=== PATIENT | male | born 1980 | race Two or more races ===

== ENCOUNTER 2022-08-09 19:28 | Inpatient (IN) | payer SELFPAY ==
--- NOTE | 2022-08-09 20:12 | ED Physician Documentation ---
History of Present Illness - Stated complaint Stated Complaint: OPEN WOUND - Chief complaint Chief Complaint: Wound - Additonal information Additional information: 41-year-old obese diabetic male presents to the emergency department for evalu ation of left foot ulceration and left leg swelling and redness. History is obtained with use of the motor vehicle parts interpreter. History is also obtained and ancillary history by his friend at the bedside who is also a nurse and speaks Welsh. Reportedly the patient developed an ulcer on lateral sole of his left foot more than 4 months ago. 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 However the patient subsequently Traveled to [place] and has remained there for the last 4 months. He returned From [place] 2 days ago. The patient reports that since returning from [place] he has had swelling and increased redness of the left lower And calf. He is also had subjective fevers. He denies chest pain or shortness of air. He typically takes a combination of both Humalog and regular insulin for the control of his diabetes as well as metformin 3 times a day. He does have a ulceration measuring about 2 cm in circumference on the lateral side of his left sole with exposed subcutaneous tissue but no obvious bony tissue is felt. Wound does not appear to tunnel PD PAST MEDICAL HISTORY - Present Medications Home Medications: Ambulatory Orders Medication Instructions Recorded Confirmed Insulin 70/30 Human [NovoLIN] 50 units SUBQ DAILY 08/09/22 08/09/22 Losartan [Cozaar] 50 mg PO BID 08/09/22 08/09/22 Omeprazole 40 mg PO DAILY 08/09/22 08/09/22 hydroCHLOROthiazide PO BID 08/09/22 [Hydrochlorothiazide] metFORMIN [Glucophage] 500 mg PO TID 08/09/22 08/09/22 - Allergies Allergies/Adverse Reactions: Allergies Allergy/AdvReac Type Severity Reaction Status Date / Time No Known Drug Allergies Allergy Verified 08/09/22 19:44 PD ED PE NORMAL - General General: Alert and oriented X 3, No acute distress, Well developed/nourished (Morbidly obese) - HEENT HEENT: Atraumatic, Moist mucous membranes - Cardiac Cardiac: RRR (Tachycardic regular rate 110) - Respiratory Respiratory: No respiratory distress, Clear bilaterally - Abdomen Abdomen: Normal bowel sounds, Soft - Extremities Extremities: Other (Chronic swelling of the bilateral lower extremities. Left lower extremity has erythema and mild induration extending up to the mid calf. No lymphangitis. 2 cm ulceration sole of the left foot with exposed subcutaneous fatty tissue. No tunneling. 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 Eye Opening: Spontaneous Motor: Obeys Commands Verbal: Oriented GCS Score: 15 Results - Vitals Vitals: Vital Signs - 24 hr 08/09/22 08/09/22 19:40 21:33 Temperature 36.5 C Heart Rate 115 H 118 H Respiratory 18 20 Rate Blood Pressure 145/89 H 159/76 H O2 Saturation 100 100 Oxygen O2 Source Room air - Labs Labs: Laboratory Tests 08/09/22 08/09/22 08/09/22 19:59 19:59 19:59 WBC 21.2 H RBC 4.82 Hgb 12.5 L Hct 39.4 L MCV 81.7 MCH 25.9 L MCHC 31.7 L RDW 13.3 Plt Count 384 MPV 9.9 Neut # (Auto) Not Reportable Lymph # (Auto) Not Reportable [place] # (Auto) Not Reportable Eos # (Auto) Not Reportable Baso # (Auto) Not Reportable Absolute Nucleated RBC Not Reportable Total Counted 100 Band Neuts % (Manual) 2 Abnorm Lymph % (Manual) 0 Nucleated RBC % Not Reportable Neutrophils # (Manual) 18.7 H Lymphocytes # (Manual) 1.3 L Monocytes # (Manual) 1.3 H Eosinophils # (Manual) 0.0 Basophils # (Manual) 0.0 Differential Comment MANUAL DIFFERENTIAL WBC Morphology 2+ TOXIC GRANULATION Platelet Estimate NORMAL (130-450,000) Platelet Morphology NORMAL APPEARANCE RBC Morph Micro Appear NORMAL APPEARANCE ESR 64 H Sodium 126 L Potassium 3.5 Chloride 91 L Carbon Dioxide 21 Anion Gap 14.0 H BUN 33 H Creatinine 1.2 Estimated GFR (MDRD) 67 L Glucose 378 H Calcium 8.9 Total Bilirubin 1.3 H AST 30 ALT 26 Alkaline Phosphatase 147 H C-Reactive Protein 38.9 H Total Protein 7.7 Albumin 3.4 Globulin 4.3 H Albumin/Globulin Ratio 0.8 L Lipase 23 Urine Color Urine Clarity Urine pH Ur Specific [place] Urine Protein Urine Glucose (UA) Urine Ketones Urine Occult Blood Urine Nitrite Urine Bilirubin Urine Urobilinogen Ur Leukocyte Esterase Ur Microscopic Review Urine Culture Comments 08/09/22 20:27 WBC RBC Hgb Hct MCV MCH MCHC RDW Plt Count MPV Neut # (Auto) Lymph # (Auto) [place] # (Auto) Eos # (Auto) Baso # (Auto) Absolute Nucleated RBC Total Counted Band Neuts % (Manual) Abnorm Lymph % (Manual) Nucleated RBC % Neutrophils # (Manual) Lymphocytes # (Manual) Monocytes # (Manual) Eosinophils # (Manual) Basophils # (Manual) Differential Comment WBC Morphology Platelet Estimate Platelet Morphology RBC Morph Micro Appear ESR Sodium Potassium Chloride Carbon Dioxide Anion Gap BUN Creatinine Estimated GFR (MDRD) Glucose Calcium Total Bilirubin AST ALT Alkaline Phosphatase C-Reactive Protein Total Protein Albumin Globulin Albumin/Globulin Ratio Lipase Urine Color DARK YELLOW Urine Clarity CLEAR Urine pH 5.5 Ur Specific [place] 1.015 Urine Protein NEGATIVE Urine Glucose (UA) >=1000 H Urine Ketones TRACE Urine Occult Blood TRACE-INTA Urine Nitrite NEGATIVE Urine Bilirubin SMALL H Urine Urobilinogen 2 H Ur Leukocyte Esterase NEGATIVE Ur Microscopic Review NOT INDICATED Urine Culture Comments NOT INDICATED - Rads (name of study) left foot Radiology: EMP read indepedently (No lesions to suggest acute osteomyelitis.) US DVT Radiology: Final report received (No deep vein thrombosis in the left leg. There are reactive lymph nodes in the groin) PD Medical Decision Making - ED course Complexity details: reviewed results, re-evaluated patient, considered differential, d/w patient ED course: This is a 41-year-old diabetic male who presents to the emergency department for evaluation of 2 days erythema and induration of the left foot and mid calf. He also has a chronic ulceration on the lateral side of his left foot that has been present for more than 4 months. In attendance with him is his friend who also speaks Welsh and is a nurse. The patient presents well-appearing. He is mildly tachycardic with a Heart rate of 110, but is afebrile. Clinically the exam of the left lower extremity is consistent with an acute cellulitis. A cbc completed today showed a marked leukocytosis. clinically pt presents as septic, though without shock. His electrolytes show a mild hyponatremia. This hyponatremia may be related to sepsis, long-term diuretic use i.e. hydrochlorothiazide or may be pseudohyponatremia in the setting of hyperglycemia. Patient's blood glucose is 378 We do note a markedly elevated ESR and sedimentation rate as well. Given the chronicity of the ulceration on the sole there is concerned that this could lead to the development of osteomyelitis. We have taken three-view x-rays of the left foot and per my interpretation there are no findings to suggest osteomyelitis or osseous lesions In order to manage the infection and sepsis I have empirically started the patient on vancomycin as well as ceftriaxone. UA and cxr are pending as other occult sources of infection. An ultrasound DVT was completed bedside with no findings of deep vein thrombosis. Moderate amount of reactive lymphadenopathy is seen within the groin consistent with the presentation of cellulitis. However given subjective fevers, tachycardia, marked leukocytosis as well as findings of infection in the lower leg at this time the patient does present as septic and will need to be admitted for further evaluation and management of this. Given the lack of hypotension patient did not receive 30 mils per kilo of fluid though he was administered a 1 L bolus of crystalloid. 2154: I have spoken with Dr. Cadena [facility] hospitalist who graciously agrees to bring the patient in for further evaluation and management of his sepsis, cellulitis and poorly controlled diabetes. Further care to be dictated by the inpatient hospitalist team Departure - Departure Disposition: [facility] DC/Xfer Clinical Impression: Cellulitis of left lower extremity, Poorly controlled diabetes mellitus Foot ulcer with fat layer exposed Qualifiers: Laterality: left Qualified Code(s): L97.522 - Non-pressure chronic ulcer of other part of left foot with fat layer exposed Sepsis Qualifiers: Sepsis type: sepsis due to unspecified organism Sepsis acute organ dysfunction status: without acute organ dysfunction Qualified Code(s): A41.9 - Sepsis, unspecified organism Condition: Serious
[2022-08-09 20:19] LABS: BASOPHILS % (AUTO) 0.2 %; EOSINOPHILS % (AUTO) 0.1 %; HCT - HEMATOCRIT 39.4 % (42.0-52.0); HGB - HEMOGLOBIN 12.5 g/dL (14.0-18.0); LYMPHOCYTES % (AUTO) 5.6 %; MEAN CORPUSCULAR HEMOGLOBIN 25.9 pg (27.0-31.0); MEAN CORPUSCULAR HGB CONC 31.7 g/dL (32.0-36.0); MEAN CORPUSCULAR VOLUME 81.7 fL (80.0-94.0); MEAN PLATELET VOLUME 9.9 fL (7.4-11.4); MONOCYTES % (AUTO) 7.6 %; NEUTROPHILS % (AUTO) 85.7 %; PLT - PLATELET COUNT 384 10^3/uL (130-450); RED BLOOD COUNT 4.82 10^6/uL (4.70-6.10); RED CELL DISTRIBUTION WIDTH 13.3 % (12.0-15.0); WHITE BLOOD COUNT 21.2 x10^3/uL (4.8-10.8)
[2022-08-09 20:22] LABS: ABNORMAL LYMPHS % (MANUAL) 0 %
--- NOTE | 2022-08-09 20:36 | XRAY Report ---
PROCEDURE: Foot 3 View LT INDICATIONS: Chronic ulcer TECHNIQUE: 3 views of the foot were acquired. COMPARISON: None. FINDINGS: Bones: No fractures or dislocations. No suspicious bony lesions. No evidence of osteomyelitis. Soft tissues: No tibiotalar joint effusion. Achilles tendon appears normal. There is soft tissue s welling over the forefoot. A deep ulceration is demarcated by gas margins lateral to the fifth metata rsal head. IMPRESSION: Deep soft tissue ulceration without osteomyelitis or foreign body seen. Reviewed by: Valentin Wallace MD on 08/09/2022 8:35 PM PST Approved by: Valentin Wallace MD on 08/09/2022 8:35 PM PST Station ID: [id number]
[2022-08-09 20:39] LABS: BAND NEUTROPHILS % (MANUAL) 2 %; LYMPHOCYTES # (MANUAL) 1.3 10^3/uL (1.5-3.5); LYMPHOCYTES % (MANUAL) 6 %; MONOCYTES # (MANUAL) 1.3 10^3/uL (0.0-1.0); NEUTROPHILS # (MANUAL) 18.7 10^3/uL (1.5-6.6); PLATELET ESTIMATE, MANUAL NORMAL (130-450,000) (NORMAL); PLATELET MORPHOLOGY NORMAL APPEARANCE (NORMAL); RBC MORPHOLOGY (MULTIPLE) NORMAL APPEARANCE (NORMAL); WBC MORPHOLOGY (MULTIPLE) 2+ TOXIC GRANULATION (NORMAL)
[2022-08-09 20:40] LABS: DIFFERENTIAL COMMENT MANUAL DIFFERENTIAL
[2022-08-09 20:51] LABS: ALBUMIN 3.4 g/dL (3.2-5.5); ALBUMIN/GLOBULIN RATIO 0.8 (1.0-2.2); BILIRUBIN,TOTAL 1.3 mg/dL (0.2-1.0); CALCIUM 8.9 mg/dL (8.5-10.3); CREATININE 1.2 mg/dL (0.6-1.2); CRP - C-REACTIVE PROTEIN 38.9 mg/dL (0-1.0); POTASSIUM 3.5 mmol/L (3.5-5.0); TOTAL PROTEIN 7.7 g/dL (6.7-8.2)
[2022-08-09] MEDS ORDERED: VANCOMYCIN INJ 1.5 GM in SODIUM CHLORIDE 0.9% 500 ML IV STA (20:59)
[2022-08-09] MEDS ORDERED: cefTRIAXone 1 GM in SODIUM CHLORIDE 0.9% MINIBAG 100 ML IV STA (21:00)
[2022-08-09] MEDS ORDERED: SODIUM CHLORIDE 0.9% 1,000 ML IV STA (21:00)
[2022-08-09] MEDS ORDERED: cefTRIAXone 1 GM VIAL ONE (21:09)
[2022-08-09] MEDS ORDERED: VANCOMYCIN 1 GM VIAL ONE (21:09)
[2022-08-09 21:39] LABS: GLUCOSE, URINE (UA) >=1000 mg/dL (NEGATIVE); KETONES,URINE (UA) TRACE mg/dL (NEGATIVE); LEUKOCYTE ESTERASE, URINE NEGATIVE (NEGATIVE); NITRITE,URINE NEGATIVE (NEGATIVE); OCCULT BLOOD,URINE TRACE-INTA (NEGATIVE); PH,URINE 5.5 PH (5.0-7.5); PROTEIN,URINE NEGATIVE (NEGATIVE); UROBILINOGEN,URINE 2 E.U./dL (NORMAL)
[2022-08-09 21:42] LABS: BILIRUBIN,URINE SMALL (NEGATIVE); CLARITY,URINE CLEAR (CLEAR); ICTOTEST,URINE POSITIVE
[2022-08-09] MEDS ORDERED: ONDANSETRON 4 MG/2 ML VIAL IVP PRN (21:56)
--- NOTE | 2022-08-09 21:56 | Ultrasound Report ---
PROCEDURE: Duplex Ext Veins Left INDICATIONS: swelling, erythema; rec[place] travelfrom [place]; ? dvt TECHNIQUE: Real-time imaging, as well as color and pulse Doppler interrogation, were performed of the lower extr emity deep veins from the inguinal ligament to the popliteal fossa. COMPARISON: None. FINDINGS: The deep veins are normally compressible, and free of intraluminal thrombus. Color and pu lse Doppler demonstrate normal phasic intraluminal flow. There is normal augmentation response to di stal compression maneuver. IMPRESSION: No DVT found left lower extremity. Somewhat limited quality of visualization due to larg e body habitus. Reviewed by: Valentin Wallace MD on 08/09/2022 9:54 PM PST Approved by: Valentin Wallace MD on 08/09/2022 9:54 PM PST Station ID: [id number]
--- NOTE | 2022-08-09 22:09 | HISTORY & PHYSICAL EXAMINATION ---
Chief Complaint - Chief Complaint Chief Complaint: Left foot pain and swelling History of Present Illness - Admitted From Admitted From:: Home - History Obtained From Records Reviewed: Yes History obtained from: Patient Exam Limitations: telemedicine - History of Present Illness HPI Comment/Other: 41-year-old obese diabetic male presents to the emergency department for evaluation of left foot ulceration and left leg swelling and redness. History is obtained with use of the science interpreter. History is also obtained and ancillary history by his friend at the bedside who is also a nurse and speaks Norwegian. Reportedly the patient developed an ulcer on lateral sole of his left foot more than 4 months ago. He had briefly been followed by a provider Dr. Brand here on [place] and had been referred to a cam specialist. However the patient subsequently Traveled to [place] and has remained there for the last 4 months. He returned From [place] 2 days ago. The patient reports that since returning from [place] he has had swelling and increased redness of the left lower And calf. He is also had subjective fevers. He denies chest pain or shortness of air. He typically takes a combination of both Humalog and regular insulin for the control of his diabetes as well as metformin 3 times a day. He does have a ulceration measuring about 2 cm in circumference on the lateral side of his left sole with exposed subcutaneous tissue but no obvious bony tissue is felt. Wound does not appear to tunnel, patient was discussed in detail with ER MD and felt patient wound was all cellulits with no other concerns. 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 History - Past Medical History Endocrine/Autoimmune: reports: Type 2 diabetes MRSA Hx?: No - POLST Patient has POLST: No Meds/Allgy - Home Medications Home Medications: Ambulatory Orders Medication Instructions Recorded Confirmed Insulin 70/30 Human [NovoLIN] 50 units SUBQ DAILY 08/09/22 08/09/22 Losartan [Cozaar] 50 mg PO BID 08/09/22 08/09/22 Omeprazole 40 mg PO DAILY 08/09/22 08/09/22 hydroCHLOROthiazide PO BID 08/09/22 [Hydrochlorothiazide] metFORMIN [Glucophage] 500 mg PO TID 08/09/22 08/09/22 - Allergies Allergies/Adverse Reactions: Allergies Allergy/AdvReac Type Severity Reaction Status Date / Time No Known Drug Allergies Allergy Verified 08/09/22 19:44 Review of Systems - Integumentary Integumentary: reports: Lesions, Other (Left leg ulcer x 8 mos) Prior Level of Functionality: Independent with AdL Exam - Vital Signs Reviewed Vital Signs: Yes Vital Signs: Vital Signs x48h Temp Pulse Resp BP Pulse Ox 08/09/22 21:33 118 H 20 159/76 H 100 08/09/22 19:40 36.5 C 115 H 18 145/89 H 100 - Physical Exam General Appearance: positive: No acute distress Eyes Bilateral: positive: Normal inspection, PERRL ENT: positive: Pharynx nml Neck: positive: Nml inspection Respiratory: positive: Chest non-tender Cardiovascular: positive: Regular rate & rhythm Abdomen: positive: Non-tender, No organomegaly (Left lower ext redness swelling and also an ulcer Other (Chronic swelling of the bilateral lower extremities. Left lower extremity has erythema and mild induration extending up to the mid calf. No lymphangitis. 2 cm ulceration sole of the left foot with exposed subcutaneous fatty tissue. No tunn) Sepsis Event Note (H) - Evaluation Current Stage of Sepsis: Ruled out Conclusion/Plan - Problem List (1) SIRS (systemic inflammatory response syndrome) Conclusion/Plan: IVF, IV abx (2) Foot ulcer with fat layer exposed Conclusion/Plan: Check arterial usg, iv abx, vancomycin and Zosyn, Follow ESR and CRP Qualifiers: Laterality: left Qualified Code(s): L97.522 - Non-pressure chronic ulcer of other part of left foot with fat layer exposed (3) Poorly controlled diabetes mellitus Conclusion/Plan: Check A1c, TSH, Lipid, continue home dose of insulin (4) Hyponatremia Conclusion/Plan: hypovolmeic and pseudohypoantremia from high gluocse continue to monitor for now - Lab Results Fish Bones: 08/09/22 19:59 08/09/22 19:59
[2022-08-09 22:27] LABS: CORONAVIRUS 229E-RESP PCR NOT DETECTED; CORONAVIRUS HKU1-RESP PCR NOT DETECTED; CORONAVIRUS NL63-RESP PCR NOT DETECTED; CORONAVIRUS OC43-RESP PCR NOT DETECTED; HUMAN METAPNEUMOVIRUS NOT DETECTED; INFLUENZA A- RESP PCR PANEL NOT DETECTED; INFLUENZA B - RESP PCR PANEL NOT DETECTED; PARAINFLUENZA VIRUS 1 NOT DETECTED; PARAINFLUENZA VIRUS 2 NOT DETECTED; PARAINFLUENZA VIRUS 3 NOT DETECTED; PARAINFLUENZA VIRUS 4 NOT DETECTED; RHINOVIRUS/ENTEROVIRUS NOT DETECTED; RSV- RESP PCR PANEL NOT DETECTED; SARS-CoV-2 -RESP PCR PANEL NOT DETECTED
[2022-08-09 22:28] LABS: B. PARAPERTUSSIS- RESP PCR PAN NOT DETECTED; B. PERTUSSIS- RESP PCR PANEL NOT DETECTED; C. PNEUMONIAE- RESP PCR PANEL NOT DETECTED; M. PNEUMONIAE- RESP PCR PANEL NOT DETECTED
--- NOTE | 2022-08-09 22:29 | XRAY Report ---
PROCEDURE: Chest 1 View X-Ray INDICATIONS: sepsis TECHNIQUE: One view of the chest was acquired. COMPARISON: None. FINDINGS: Surgical changes and devices: None. Lungs and pleura: No pleural effusions or pneumothorax. Lungs are difficult to accurately assess du e to large patient body habitus and relatively prominent reduced inspiratory volume.. Mediastinum: Mediastinal contours appear normal. Heart size is normal. Bones and chest wall: No suspicious bony lesions. Overlying soft tissues appear unremarkable. IMPRESSION: A definite pneumonia is not seen. Quality of visualization is significantly limited by large body hab itus and reduced inspiratory volume. Reviewed by: Valentin Wallace MD on 08/09/2022 10:28 PM PST Approved by: Valentin Wallace MD on 08/09/2022 10:28 PM PST Station ID: [id number]
[2022-08-09] MEDS ORDERED: VANCOMYCIN INJ 1.5 GM in SODIUM CHLORIDE 0.9% 500 ML IV SCH (23:00)
[2022-08-09] MEDS: SODIUM CHLORIDE 0.9% 1,000 ML IV SCH (23:18)
[2022-08-09] MEDS: PIPERACILLIN/TAZOBACTAM 3.375 GM in SODIUM CHLORIDE 0.9% MINIBAG 100 ML IV SCH (23:50)
[2022-08-09] MEDS: metFORMIN 500 MG TABLET PO SCH (23:50)
[2022-08-10] MEDS: ACETAMINOPHEN 325 MG TABLET PO PRN ×2 (00:45→09:02)
[2022-08-10] MEDS ORDERED: BENZOCAINE/MENTHOL LOZENGE MM PRN (01:01)
[2022-08-10 08:09] LABS: ALBUMIN 2.7 g/dL (3.2-5.5); ALBUMIN/GLOBULIN RATIO 0.7 (1.0-2.2); ALKALINE PHOSPHATASE 113 IU/L (42-121); ALT ALANINE AMINOTRANSFERASE 21 IU/L (10-60); AST ASPARTATE AMINOTRANSFERASE 22 IU/L (10-42); BILIRUBIN,TOTAL 1.4 mg/dL (0.2-1.0); BUN - BLOOD UREA NITROGEN 28 mg/dL (6-20); CALCIUM 8.3 mg/dL (8.5-10.3); CARBON DIOXIDE - CO2 22 mmol/L (21-32); CHLORIDE 101 mmol/L (101-111); CHOL/HDL RATIO 5.3 (<5.0); CHOLESTEROL 153 mg/dL; CREATININE 0.9 mg/dL (0.6-1.2); GFR - MDRD 94 (>89); GLUCOSE 93 mg/dL (70-100); HDL CHOLESTEROL 29 mg/dL; LDL CHOLESTEROL,CALCULATED 97 mg/dL; LDL/HDL RATIO 3.3 (<3.6); POTASSIUM 3.3 mmol/L (3.5-5.0); SODIUM 134 mmol/L (135-145); TOTAL PROTEIN 6.6 g/dL (6.7-8.2); TRIGLYCERIDES 136 mg/dL; VLDL CHOLESTEROL 27 mg/dL
[2022-08-10] MEDS ORDERED: VANCOMYCIN INJ 1 GM, VANCOMYCIN INJ 500 MG in SODIUM CHLORIDE 0.9% 500 ML IV SCH (09:00)
[2022-08-10] MEDS ORDERED: INSULIN 70/30 HUMAN 300 UNIT/3 ML VIAL SUBQ SCH (09:00)
[2022-08-10] MEDS: LOSARTAN 50 MG TABLET PO SCH ×2 (09:02→21:43)
[2022-08-10] MEDS: METOPROLOL TARTRATE 25 MG TABLET PO SCH ×2 (09:02→21:44)
[2022-08-10] MEDS: SODIUM CHLORIDE FLUSH 0.9% 10 ML SYRINGE IVP SCH ×3 (09:11→17:35)
[2022-08-10] MEDS: SODIUM CHLORIDE 0.9% 1,000 ML IV SCH (09:26)
[2022-08-10] MEDS ORDERED: INSULIN 70/30 HUMAN 300 UNIT/3 ML VIAL SUBQ ONE (09:30)
[2022-08-10] MEDS: INSULIN LISPRO 300 UNIT/3 ML PEN SUBQ SCH ×7 (10:30→21:54)
[2022-08-10] MEDS: metFORMIN 500 MG TABLET PO SCH (10:31)
[2022-08-10] MEDS: PIPERACILLIN/TAZOBACTAM 3.375 GM in SODIUM CHLORIDE 0.9% MINIBAG 100 ML IV SCH ×3 (10:51→21:47)
[2022-08-10] MEDS: PANTOPRAZOLE 40 MG TABLET PO SCH (10:52)
[2022-08-10 10:54] LABS: ESTIMATED AVERAGE GLUCOSE 298 mg/dL (70-100)
--- NOTE | 2022-08-10 11:04 | PHARMACY PROGRESS NOTE ---
- Best Possible Medication History Admit Date and Time: 08/09/22 1648 Processed by: Nursing Medication History completed: Yes As the person ultimately responsible for medication therapy, providers are able to order a medication from an existing home medication list in [facility] via the "Reconcile Routine" prior to Confirmation of that medication by student support services director. Such practice is discouraged except when the physician, in their clinical judgment, deems that a medical need exists for a medication without regard to previous use.
--- NOTE | 2022-08-10 16:19 | PROVIDER PROGRESS NOTE ---
Progress Note August 10, 2022 3:59 PM Patient has been diabetic for about 11 years. He uses hand to level it off and then dip it back and forth to say that his control has been off and on. Not really controlled. He walks in his own home. But he says he does not really exercise outside the house. He is kind of stuck in the house taking care of his elderly mom. She has heart problems. Sometimes he lives in [facility], sometimes lives in [place]. He has not worked in a while. He is morbidly obese. Says that it is really hard to say no to some food when some people are eating it in front of him. He has had an ulcer on his left foot for over 4 months. He saw primary care provider, Dr. Brand, who referred him to podiatry. But the patient went back to [place] and did not come back till 2 days ago. The ulcer on the left foot had almost completely healed. It was on the lateral aspect of the foot in the metatarsal region. But lately it softened up and it just peeled off. Fluid drains from the lateral aspect of the foot. Then the whole lower extremity started getting red, hot, and swollen. In addition to the lateral foot ulcer, leia sargent developed an ulcer on the plantar aspect of his foot in the metatarsal region that was new over the last few weeks.. He is only been back from [place] for 2 days. Foot x-ray in the ER had deep soft tissue ulceration without osteomyelitis or foreign body seen. Venous duplex was done to make sure he did not have a DVT and there is none present. And chest x-ray did not have pneumonia, pleural ef fusion, or pneumothorax. Active Medications Acetaminophen (Acetaminophen 325 Mg Tablet) 650 mg PO Q4HR PRN PRN Reason: Pain 1 to 4, or Fever Last Admin: 08/10/22 09:02 Dose: 650 mg Hydrocodone Bitart/Acetaminophen (Hydrocod/Acetam 10 Mg/325 Mg Tablet) 1 tab PO Q4HR PRN PRN Reason: Pain 8 to 10 Hydrocodone Bitart/Acetaminophen (Hydrocod/Acetam 5/325 Mg Tablet) 1 tab PO Q4HR PRN PRN Reason: Pain 5 to 7 Carboxymethylcellulose (Carboxymethylcellulose Ophth Drops) 1 drops EACHEYE PRN PRN PRN Reason: Dry Eye Sodium Chloride (Normal Saline 0.9%) 1,000 mls @ 100 mls/hr IV .Q10H [facility] Last Admin: 08/10/22 09:26 Dose: 100 mls/hr Piperacillin Sod/Tazobactam (Sod 3.375 gm/ Sodium Chloride) 100 mls @ 25 mls/hr IV Q8HR [facility] Last Admin: 08/10/22 13:49 Dose: 25 mls/hr Vancomycin HCl 1 gm/Vancomycin HCl 500 mg/ Sodium Chloride 500 mls @ 250 mls/hr IV Q8H [facility] Insulin Human Isoph/Insulin Regular (Insulin 70/30 Human 300 Unit/3 Ml Vial) 30 unit SUBQ DAILY [facility] Insulin Human Lispro (Insulin Lispro 300 Unit/3 Ml Pen) 5 unit SUBQ QDBREAKFAST [facility]; Protocol Last Admin: 08/10/22 10:30 Dose: Not Given Insulin Human Lispro (Insulin Lispro 300 Unit/3 Ml Pen) 5 unit SUBQ QDLUNCH [facility]; Protocol Last Admin: 08/10/22 12:08 Dose: 5 unit Insulin Human Lispro (Insulin Lispro 300 Unit/3 Ml Pen) 5 unit SUBQ QDDINNER [facility]; Protocol Insulin Human Lispro (Insulin Lispro 300 Unit/3 Ml Pen) 1 - 9 unit SUBQ 0800,1200,1700,2100 [facility]; Protocol Last Admin: 08/10/22 12:09 Dose: 3 unit Losartan Potassium (Losartan 50 Mg Tablet) 50 mg PO BID [facility] Last Admin: 08/10/22 09:02 Dose: 50 mg Metoprolol Tartrate (Metoprolol Tartrate 25 Mg Tablet) 25 mg PO BID [facility] Last Admin: 08/10/22 09:02 Dose: 25 mg Ondansetron HCl (Ondansetron 4 Mg/2 Ml Vial) 4 mg IVP Q6HR PRN PRN Reason: Nausea / Vomiting Pantoprazole Sodium (Pantoprazole 40 Mg Tablet) 40 mg PO QDAC [facility] Last Admin: 08/10/22 10:52 Dose: Not Given Sodium Chloride (Sodium Chloride Flush 0.9% 10 Ml Syringe) 10 ml IVP PRN PRN PRN Reason: NEEDED PER PROVIDER ORDERS Sodium Chloride (Sodium Chloride Flush 0.9% 10 Ml Syringe) 10 ml IVP 0100,0900,1700 [facility] Last Admin: 08/10/22 10:31 Dose: Not Given Throat Lozenges (Benzocaine/Menthol Lozenge) 1 lozenge MM Q2HR PRN PRN Reason: Throat pain Home Meds: Insulin 70/30 Human [NovoLIN] 50 units SUBQ DAILY 08/09/22 Losartan [Cozaar] 50 mg PO BID 08/09/22 Omeprazole 40 mg PO DAILY 08/09/22 hydroCHLOROthiazide [Hydrodiuril] 25 mg PO DAILY 08/10/22 metFORMIN [Glucophage] 850 mg PO TIDWM 08/10/22 Exam: Current temperature 36.8. This morning he was 38.6. Pulse has been slightly tachycardic at 104, 109, and 117 today. Blood pressure is 128/67, respirations 18, 99% on room air Super obese male who speaks broken [place], prefers to speak Turkish. I am bilingual and able to speak to him appropriately. He is alert, lucid, comfortable but worried about his foot 5 foot 8 inches tall, 154 kg Lungs have diminished breath sounds but they are clear without crackles, rhonchi, wheezing. No increased respiratory effort with speaking to me and he completes full sentences Distant cardiac tones of regular rate and rhythm that is slightly tachycardic Abdomen is super obese, soft, nontender, normal bowel sounds Both of his legs are quite large. Right leg has no ulcers, but does have trace edema around the ankle and foot. Left leg wyatt and calf is edematous, 2+. Skin is diffusely red, redness goes all the way down over the foot. He has 2 ulcers. 1 on the lateral aspect just underneath the fifth toe. Another 1 in the metatarsal region on the plantar aspect of the foot. The lateral ulcer is draining clear serous fluid. He is afraid this is pus. I said its not. While the skin is edematous, red and hot, there is no fluctuance. Lab: Sodium 134, potassium 3.3, BUN 28, creatinine 0.9, glucose 93 A1c 12%. Before lunch his glucose is 193 White cell count not ordered for today. Blood cultures drawn, received, and being processed Assessment/plan: 1. SIRS. SIRS with source of infection would be the sepsis from diabetic foot ulcer. But I do not think he meets all criteria for sepsis. 2. Diabetic foot ulcer with soft tissue infection. No bony infection suspected on plain film. Diabetic foot infection tends to be multi organism infection so I am not getting a superficial wound culture off of this. Literature does not support this. History and physical recommends vascular studies but none ordered. I will do that today. White cell count not ordered for today and I will order for tomorrow and subsequent days. I will also check C-reactive protein. At this time continue Zosyn and vancomycin. Day #2. Adjust antibiotics once blood cultures come back. I would recommend dropping vancomycin and continuing Zosyn 2. Type 2 diabetes mellitus, uncontrolled with hyperglycemia, with complication of diabetic foot infection, on long-term use of insulin. The patient describes being uncontrolled for most of his diabetic duration. He does not remember what an A1c is and does not remember if it is ever been below 7%. I explained to him at length that complications of uncontrolled diabetes start setting in around 15 years. May be even 10 years. He is at 13 years. He does not describe neuropathy, or nephropathy. He has never had a diabetic eye exam. I have also warned him about the risk of vascular disease. So someone with a foot infection would need an amputation if his vascular supply is not protected with controlled diabetes, RUT inhibitor, etc. He does not smoke. Plan: Strongly encouraged to limit diet caloric intake to 2000 dirk a day, and start walking (when his foot heals) to 30 minutes a day at least 5 days a week. Aim for an A1c of 7% With our diabetic diet, his sugar is low this morning. He is usually on 50 units of 70/30 at home. I will only give 15 units this morning. Tomorrow go to 30 units. Keep on going up if I need to to 50 units. However with our diabetic diet, we may find it easier to control his sugars in the hospital as opposed to what he does outside the hospital. Sliding scale insulin before meals. Fixed dosing of 5 units of lispro before each meal. 3. Pseudohyponatremia. Also with hypokalemia. The former has improved with IV fluids and control her sugar. We will supplement p.o. potassium.
[2022-08-10] MEDS: VANCOMYCIN INJ 1 GM, VANCOMYCIN INJ 500 MG in SODIUM CHLORIDE 0.9% 500 ML IV SCH (18:26)
[2022-08-10] MEDS: SENNA 8.6 MG TABLET PO SCH (21:43)
[2022-08-10] MEDS: guaiFENesin 600 MG TABLET PO SCH (21:44)
[2022-08-10] MEDS: DOCUSATE SODIUM 250 MG CAPSULE PO SCH (21:46)
[2022-08-11] MEDS: SODIUM CHLORIDE 0.9% 1,000 ML IV SCH ×3 (01:13→16:50)
[2022-08-11] MEDS: VANCOMYCIN INJ 1 GM, VANCOMYCIN INJ 500 MG in SODIUM CHLORIDE 0.9% 500 ML IV SCH ×3 (01:13→18:14)
[2022-08-11] MEDS: SODIUM CHLORIDE FLUSH 0.9% 10 ML SYRINGE IVP SCH ×3 (01:13→16:50)
[2022-08-11] MEDS: ACETAMINOPHEN 325 MG TABLET PO PRN ×2 (01:21→15:32)
[2022-08-11 05:53] LABS: BASOPHILS % (AUTO) 0.1 %; EOSINOPHILS # (AUTO) 0.2 10^3/uL (0.0-0.7); EOSINOPHILS % (AUTO) 1.2 %; HCT - HEMATOCRIT 31.2 % (42.0-52.0); HGB - HEMOGLOBIN 9.9 g/dL (14.0-18.0); LYMPHOCYTES # (AUTO) 1.6 10^3/uL (1.5-3.5); LYMPHOCYTES % (AUTO) 10.8 %; MEAN CORPUSCULAR HEMOGLOBIN 26.3 pg (27.0-31.0); MEAN CORPUSCULAR HGB CONC 31.7 g/dL (32.0-36.0); MEAN CORPUSCULAR VOLUME 82.8 fL (80.0-94.0); MEAN PLATELET VOLUME 10.1 fL (7.4-11.4); MONOCYTES # (AUTO) 1.2 10^3/uL (0.0-1.0); NEUTROPHILS # (AUTO) 11.7 10^3/uL (1.5-6.6); NEUTROPHILS % (AUTO) 79.4 %; PLT - PLATELET COUNT 320 10^3/uL (130-450); RED BLOOD COUNT 3.77 10^6/uL (4.70-6.10); RED CELL DISTRIBUTION WIDTH 13.9 % (12.0-15.0); WHITE BLOOD COUNT 14.7 x10^3/uL (4.8-10.8)
[2022-08-11] MEDS: PIPERACILLIN/TAZOBACTAM 3.375 GM in SODIUM CHLORIDE 0.9% MINIBAG 100 ML IV SCH ×3 (06:28→23:01)
[2022-08-11] MEDS: PANTOPRAZOLE 40 MG TABLET PO SCH (06:28)
[2022-08-11] MEDS: INSULIN LISPRO 300 UNIT/3 ML PEN SUBQ SCH ×7 (09:09→21:44)
[2022-08-11] MEDS: polyethylene glycoL 3350 17 GM PACKET PO SCH (09:11)
[2022-08-11] MEDS: INSULIN 70/30 HUMAN 300 UNIT/3 ML VIAL SUBQ SCH ×2 (09:11→23:13)
[2022-08-11] MEDS: LOSARTAN 50 MG TABLET PO SCH ×2 (09:12→23:05)
[2022-08-11] MEDS: DOCUSATE SODIUM 250 MG CAPSULE PO SCH (09:12)
[2022-08-11] MEDS: SENNA 8.6 MG TABLET PO SCH (09:13)
[2022-08-11] MEDS: METOPROLOL TARTRATE 25 MG TABLET PO SCH ×2 (09:13→23:01)
[2022-08-11] MEDS: guaiFENesin 600 MG TABLET PO SCH ×2 (09:13→23:01)
--- NOTE | 2022-08-11 11:07 | PHARMACY PROGRESS NOTE ---
- Therapy Status Vancomycin regimen day #: 3 Therapy status: Awaiting steady state Basis for treatment: Empirical Treatment indication: DIABETIC FOOT ULCER Trough goal: 10-15 Concurrent antibiotics: ZOSYN 3.375G Q8H - NIKO Risk Risk level for Acute Kidney Injury: High Acute Kidney Injury risk factors: Piperacillin/Tozobactam, Wt >100kg or BMI >40, Diabetes, Total daily Vancomycin >4 grams - Monitoring and Recommendation Clinical response to treatment: I&O Previous 24 hours 08/09/22 08/10/22 08/11/22 23:59 23:59 23:59 Intake Total 1600 4320 840 Output Total 300 Balance 1300 4320 840 Lab Results 08/10/22 08/09/22 08/09/22 06:26 19:59 19:59 ESR 64 H BUN 28 H 33 H Creatinine 0.9 1.2 Estimated GFR (MDRD) 94 67 L Cultures 08/09/22 19:59 Blood Blood Culture - Preliminary NO GROWTH AFTER 1 DAY 08/09/22 19:59 Blood Blood Culture - Preliminary NO GROWTH AFTER 1 DAY Monitoring plan: Daily serum creatinine (VANCO TROUGH ORDERED FOR 08/11/22 @1630. DOSES HAVE BEEN GIVEN EARLY BY ABOUT 45 MIN. CULTURES PENDING. TAILOR ABX WHEN APPROPRIATE.)
--- NOTE | 2022-08-11 14:58 | Ultrasound Report ---
PROCEDURE: Duplex Lwr Ext Arterial Bilat INDICATIONS: diabetic foot ulcer TECHNIQUE: Color and pulse Doppler interrogation was performed of both lower extremity arterial systems, with im age documentation. COMPARISON: None FINDINGS: Right lower extremity: Common femoral artery: 88 cm/sec, with triphasic flow. Deep femoral artery: 67 cm/sec, with triphasic flow. Proximal superficial femoral artery: 84 cm/sec, with triphasic flow. Mid superficial femoral artery: 91 cm/sec, with triphasic flow. Distal superficial femoral artery: 55 cm/sec, with triphasic flow. Popliteal artery: 58 cm/sec, with triphasic flow. Posterior tibial artery: 101 cm/sec, with triphasic flow. Anterior tibial artery/dorsalis pedis: 120/108 cm/sec, with triphasic flow. Stone-scale imaging description: Patent vessels. No stenosis identified. Left lower extremity: Common femoral artery: 119 cm/sec, with triphasic flow. Deep femoral artery: 81 cm/sec, with triphasic flow. Proximal superficial femoral artery: 134 cm/sec, with monophasic flow. Mid superficial femoral artery: 144 cm/sec, with monophasic flow. Distal superficial femoral artery: 93 cm/sec, with monophasic flow. Popliteal artery: 144 cm/sec, with monophasic flow. Posterior tibial artery: 57 cm/sec, with monophasic flow. Anterior tibial artery/dorsalis pedis: 119/126 cm/sec, with monophasic flow. Stone-scale imaging description: No stenoses identified from the common femoral through the popliteal . However, there is low resistance monophasic waveform that develops from the proximal SFA distally. IMPRESSION: 1. No evidence of inflow stenosis. 2. No significant findings on the right. 3. Although there is no hemodynamically significant stenosis identified on the left, from the common femoral through popliteal, the presence of monophasic waveforms from the proximal SFA distally sugges ts possible significant disease. Comment: Consider CTA or MRA of the aorta and runoff vessels. Reviewed by: Denzel John MD on 08/11/2022 2:57 PM PST Approved by: Denzel John MD on 08/11/2022 2:57 PM PST Station ID: [id number]
[2022-08-11 17:15] LABS: CALCIUM 8.1 mg/dL (8.5-10.3); CREATININE 0.9 mg/dL (0.6-1.2); POTASSIUM 3.3 mmol/L (3.5-5.0)
[2022-08-11] MEDS ORDERED: POTASSIUM CHLORIDE 20 MEQ TABLET PO ONE (17:31)
--- NOTE | 2022-08-11 17:33 | PROVIDER PROGRESS NOTE ---
Progress Note August 11, 2022 5:24 PM His mom and his cousin are in the room. They have lots of questions about how he is doing. He is worried because he continues to have drainage from the foot. It serous drainage. It comes out the hole on the lateral aspect of his foot. He wonders if Dr. Ceballos can do some incision and debridement when he goes to the office in followup. They wanted to know what his A1c was and it is 12%. So explained that he is not under control. He really needs to do a better job of exercise, diet, and insulin. He explains to me that he is actually taking 50 units of 70/30 twice a day. I thought he was just doing it once a day. He is shocked that we are not giving him that much insulin. And his sugars are better controlled here. I explained to him that he is our prisoner and that I am giving him a carb controlled diet. Other than burning in the foot, Edema of the foot, he does not have any new complaints. Denies cp, sob. Active Medications Acetaminophen (Acetaminophen 325 Mg Tablet) 650 mg PO Q4HR PRN PRN Reason: Pain 1 to 4, or Fever Last Admin: 08/11/22 15:32 Dose: 650 mg Hydrocodone Bitart/Acetaminophen (Hydrocod/Acetam 10 Mg/325 Mg Tablet) 1 tab PO Q4HR PRN PRN Reason: Pain 8 to 10 Hydrocodone Bitart/Acetaminophen (Hydrocod/Acetam 5/325 Mg Tablet) 1 tab PO Q4HR PRN PRN Reason: Pain 5 to 7 Carboxymethylcellulose (Carboxymethylcellulose Ophth Drops) 1 drops EACHEYE PRN PRN PRN Reason: Dry Eye Docusate Sodium (Docusate Sodium 250 Mg Capsule) 250 - 500 mg PO DAILY [facility] Last Admin: 08/11/22 09:12 Dose: 500 mg Guaifenesin (Guaifenesin 600 Mg Tablet) 600 mg PO BID [facility] Last Admin: 08/11/22 09:13 Dose: 600 mg Sodium Chloride (Normal Saline 0.9%) 1,000 mls @ 100 mls/hr IV .Q10H [facility] Last Admin: 08/11/22 16:50 Dose: 100 mls/hr Piperacillin Sod/Tazobactam (Sod 3.375 gm/ Sodium Chloride) 100 mls @ 25 mls/hr IV Q8HR [facility] Last Admin: 08/11/22 14:28 Dose: 25 mls/hr Vancomycin HCl 1 gm/Vancomycin HCl 500 mg/ Sodium Chloride 500 mls @ 250 mls/hr IV Q8H [facility] Last Infusion: 08/11/22 11:45 Dose: Infused Insulin Human Isoph/Insulin Regular (Insulin 70/30 Human 300 Unit/3 Ml Vial) 30 unit SUBQ DAILY [facility] Last Admin: 08/11/22 09:11 Dose: 30 unit Insulin Human Isoph/Insulin Regular (Insulin 70/30 Human 300 Unit/3 Ml Vial) 10 unit SUBQ QPM [facility] Insulin Human Lispro (Insulin Lispro 300 Unit/3 Ml Pen) 5 unit SUBQ QDBREAKFAST [facility]; Protocol Last Admin: 08/11/22 09:09 Dose: 5 unit Insulin Human Lispro (Insulin Lispro 300 Unit/3 Ml Pen) 5 unit SUBQ QDLUNCH [facility]; Protocol Last Admin: 08/11/22 12:01 Dose: 5 unit Insulin Human Lispro (Insulin Lispro 300 Unit/3 Ml Pen) 5 unit SUBQ QDDINNER [facility]; Protocol Last Admin: 08/10/22 17:34 Dose: 5 unit Insulin Human Lispro (Insulin Lispro 300 Unit/3 Ml Pen) 1 - 9 unit SUBQ 0800,1200,1700,2100 [facility]; Protocol Last Admin: 08/11/22 12:01 Dose: 3 unit Losartan Potassium (Losartan 50 Mg Tablet) 50 mg PO BID [facility] Last Admin: 08/11/22 09:12 Dose: 50 mg Metoprolol Tartrate (Metoprolol Tartrate 25 Mg Tablet) 25 mg PO BID [facility] Last Admin: 08/11/22 09:13 Dose: 25 mg Ondansetron HCl (Ondansetron 4 Mg/2 Ml Vial) 4 mg IVP Q6HR PRN PRN Reason: Nausea / Vomiting Pantoprazole Sodium (Pantoprazole 40 Mg Tablet) 40 mg PO QDAC [facility] Last Admin: 08/11/22 06:28 Dose: 40 mg Polyethylene Glycol (Polyethylene Glycol 3350 17 Gm Packet) 17 gm PO DAILY [facility] Last Admin: 08/11/22 09:11 Dose: 17 gm Senna (Senna 8.6 Mg Tablet) 8.6 - 17.2 mg PO DAILY [facility] Last Admin: 08/11/22 09:13 Dose: 17.2 mg Sodium Chloride (Sodium Chloride Flush 0.9% 10 Ml Syringe) 10 ml IVP PRN PRN PRN Reason: NEEDED PER PROVIDER ORDERS Sodium Chloride (Sodium Chloride Flush 0.9% 10 Ml Syringe) 10 ml IVP 0100,0900,1700 [facility] Last Admin: 08/11/22 16:50 Dose: Not Given Throat Lozenges (Benzocaine/Menthol Lozenge) 1 lozenge MM Q2HR PRN PRN Reason: Throat pain HOme Meds: Insulin 70/30 Human [NovoLIN] 50 units SUBQ DAILY 08/09/22 Losartan [Cozaar] 50 mg PO BID 08/09/22 Omeprazole 40 mg PO DAILY 08/09/22 hydroCHLOROthiazide [Hydrodiuril] 25 mg PO DAILY 08/10/22 metFORMIN [Glucophage] 850 mg PO TIDWM 08/10/22 Exam: Temperature 36.7. Heart rate 97. Blood pressure 129/62. Respiratory rate 24. 99% on room air. Pleasant, morbidly obese male Neck supple Lungs clear No respiratory distress RRR Abd obese, soft and had a BM today. Sitting up in bed, feet are down on the floor. He says that he really tries to keep his leg elevated. Right now is in an [place]ron wrap. You can still see the residual redness and edema that was present yesterday. The ulcers are covered. The bandages dry. Lab: Sodium 136, potassium 3.3, BUN 20, creatinine 0.9 Glucose today is 187, 210 and 157 White cell count was 21.2 on admission. 14.7 today. Hemoglobin was 12.5 in admission and is 9.9 today. Platelets are 320. Sed rate is 64 and C-reactive protein is 37.5. Blood cultures negative after 1 day Assessment/plan: 1. Diabetic foot infection. Soft tissue. No bony infection suspected on plain film. White cell count, C-reactive protein and sed rate indicate that he still has a ways to go. I have explained to him that he will be on antibiotics for a few days until his white cell count come down. And then he will be transitioned over to oral. At that point he can follow-up with his primary care provider and outpatient management with incision debridement of a diabetic foot. He may need to be referred to the wound clinic. Assessment/plan: Zosyn and vancomycin, day #3. Blood cultures are negative. As such no adjustment at this time. 2. Type 2 diabetes mellitus, uncontrolled, with hyperglycemia, with complications of diabetic foot infection, on long-term insulin I explained that I do not recommend giving 50 units twice a day. I will add 10 units at night. Continue 30 units in the morning. Continue to watch his sugar carefully. He is on 5 units of lispro with each meal. I will increase it to 20 units at night if his morning glucose remains elevated. Continue to encourage him to eat 2000 dirk a day. When his foot heals and he start walking every day. Aim for an A1c of less than 7%. 3. Pseudohyponatremia resolved. 4. Hypokalemia. Supplement with oral potassium and recheck tomorrow morning
[2022-08-11 22:19] LABS: VANCOMYCIN,TROUGH 24.7 ug/mL (10.0-20.0)
[2022-08-11] MEDS ORDERED: METOCLOPRAMIDE 10 MG/2 ML VIAL IVP PRN (22:37)
[2022-08-11] MEDS: HYDROcod/ACETAM 10 MG/325 MG TABLET PO PRN (23:12)
[2022-08-12] MEDS: SODIUM CHLORIDE FLUSH 0.9% 10 ML SYRINGE IVP SCH ×3 (02:33→17:36)
[2022-08-12] MEDS: VANCOMYCIN INJ 1 GM, VANCOMYCIN INJ 500 MG in SODIUM CHLORIDE 0.9% 500 ML IV SCH (02:41)
[2022-08-12 05:06] LABS: BASOPHILS % (AUTO) 0.1 %; EOSINOPHILS # (AUTO) 0.2 10^3/uL (0.0-0.7); EOSINOPHILS % (AUTO) 1.9 %; HCT - HEMATOCRIT 31.4 % (42.0-52.0); HGB - HEMOGLOBIN 9.8 g/dL (14.0-18.0); LYMPHOCYTES # (AUTO) 1.3 10^3/uL (1.5-3.5); LYMPHOCYTES % (AUTO) 12.1 %; MEAN CORPUSCULAR HEMOGLOBIN 25.8 pg (27.0-31.0); MEAN CORPUSCULAR HGB CONC 31.2 g/dL (32.0-36.0); MEAN CORPUSCULAR VOLUME 82.6 fL (80.0-94.0); MONOCYTES # (AUTO) 0.8 10^3/uL (0.0-1.0); MONOCYTES % (AUTO) 7.3 %; NEUTROPHILS # (AUTO) 8.6 10^3/uL (1.5-6.6); NEUTROPHILS % (AUTO) 78.1 %; PLT - PLATELET COUNT 360 10^3/uL (130-450); RED CELL DISTRIBUTION WIDTH 14.2 % (12.0-15.0)
[2022-08-12 05:52] LABS: CALCIUM 7.9 mg/dL (8.5-10.3); CREATININE 1.1 mg/dL (0.6-1.2); CRP - C-REACTIVE PROTEIN 29.1 mg/dL (0-1.0); POTASSIUM 3.6 mmol/L (3.5-5.0)
[2022-08-12] MEDS: SODIUM CHLORIDE 0.9% 1,000 ML IV SCH ×3 (06:55→19:07)
[2022-08-12] MEDS: PANTOPRAZOLE 40 MG TABLET PO SCH (06:55)
[2022-08-12] MEDS: PIPERACILLIN/TAZOBACTAM 3.375 GM in SODIUM CHLORIDE 0.9% MINIBAG 100 ML IV SCH ×3 (06:55→21:47)
[2022-08-12] MEDS ORDERED: MAGNESIUM HYDROXIDE 2,400 MG/30 ML UDC PO ONE (08:03)
[2022-08-12] MEDS: polyethylene glycoL 3350 17 GM PACKET PO SCH (08:31)
[2022-08-12] MEDS: INSULIN 70/30 HUMAN 300 UNIT/3 ML VIAL SUBQ SCH ×2 (08:32→21:48)
[2022-08-12] MEDS: INSULIN LISPRO 300 UNIT/3 ML PEN SUBQ SCH ×7 (08:33→21:47)
[2022-08-12] MEDS: POTASSIUM CHLORIDE 20 MEQ TABLET PO SCH (08:34)
[2022-08-12] MEDS: METOPROLOL TARTRATE 25 MG TABLET PO SCH ×2 (08:35→21:46)
[2022-08-12] MEDS: DOCUSATE SODIUM 250 MG CAPSULE PO SCH (08:35)
[2022-08-12] MEDS: SENNA 8.6 MG TABLET PO SCH (08:35)
[2022-08-12] MEDS: LOSARTAN 50 MG TABLET PO SCH ×2 (08:36→21:47)
[2022-08-12] MEDS: guaiFENesin 600 MG TABLET PO SCH ×2 (08:36→21:46)
[2022-08-12] MEDS ORDERED: VANCOMYCIN INJ 1 GM, VANCOMYCIN INJ 500 MG in SODIUM CHLORIDE 0.9% 500 ML IV SCH (09:04)
[2022-08-12] MEDS: CARBOXYMETHYLCELLULOSE OPHTH DROPS EACHEYE PRN (14:33)
[2022-08-12] MEDS: VANCOMYCIN INJ 1 GM, VANCOMYCIN INJ 250 MG in SODIUM CHLORIDE 0.9% 250 ML IV SCH (15:01)
[2022-08-12] MEDS: HYDROcod/ACETAM 5/325 MG TABLET PO PRN (18:00)
--- NOTE | 2022-08-12 18:07 | PROVIDER PROGRESS NOTE ---
Assessment/Plan - Problem List (1) Chronic diabetic ulcer of left foot determined by examination Assessment/Plan: No bony infection suspected on plain film. All labs were reviewed: White cell count, C-reactive protein and sed rate are still abnormal and indicate that he still has a way to go to improve. The last Hospitalist explained to him that he will be on antibiotics for a few days and then he will be transitioned over to oral antibiotics. I spoke to general surgeon Dr. Magdalena Marr who gave our team a curbside consult and said he does not need debridement currently, after she looked at his foot. She advised a turbogrip dressing, not a sock, however, to see if the bandage is soaked, then it needs redressing. Also, she advised that he will need to be [place] [facility] [place] Blood cultures are negative to date. No wound cultures were sent. Plan: Empiric Zosyn and vancomycin to continue. Will have PT see to recommend how to ambulate Will also ask for an Inpt consult from Wound Dr in [facility], Dr Wren. Follo CBC daily 2. Cellulitis of L foot As in #1 3. Type 2 diabetes mellitus, uncontrolled, with hyperglycemia, with complications of diabetic foot infection, on long-term insulin The last Hospitalist explained to him that we do not recommend giving 50 units twice a day. We have him on 10 units at night and 30 units in the morning. Plan: Continue Insulin treatment. Continue to watch his sugar carefully. Continue to encourage him to eat (a lower) 2000 dirk a day. When his foot eventually heals and he starts walking every day, aim for an A1c of less than 7%. 4. Cough Will obtain CXR>> this was read as having possibble interstial chganges vs underpenetrated due to his morbid obesity. 5. Morbid obesity BMI 50-59.9 As per Hx. This complicates his care. 6. Hypokalemia. Plan: Supplement with oral potassium and follow BMP 7. Pseudohyponatremia Resolved. - Current Meds Current Meds: Current Medications Generic Name Dose Route Start Last Admin Trade Name Freq PRN Reason Stop Dose Admin Acetaminophen 650 mg 08/09/22 21:56 08/11/22 15:32 Acetaminophen 325 Mg Tablet PO 650 mg Q4HR PRN Administration Pain 1 to 4, or Fever Hydrocodone Bitart/Acetaminophen 1 tab 08/09/22 21:56 08/11/22 23:12 Hydrocod/Acetam 10 Mg/325 Mg Tablet PO 1 tab Q4HR PRN Administration Pain 8 to 10 Carboxymethylcellulose 1 drops 08/10/22 01:01 08/12/22 14:33 Carboxymethylcellulose Ophth Drops EACHEYE 1 drops PRN PRN Administration Dry Eye Docusate Sodium 250 - 500 mg 08/10/22 21:00 08/12/22 08:35 Docusate Sodium 250 Mg Capsule PO 500 mg DAILY ADRI Administration Guaifenesin 600 mg 08/10/22 21:00 08/12/22 08:36 Guaifenesin 600 Mg Tablet PO 600 mg BID ADRI Administration Sodium Chloride 1,000 mls @ 100 mls/hr 08/09/22 22:00 08/12/22 15:01 Normal Saline 0.9% IV 100 mls/hr .Q10H ADRI Administration Piperacillin Sod/Tazobactam 100 mls @ 25 mls/hr 08/09/22 22:00 08/12/22 14:33 Sod 3.375 gm/ Sodium Chloride IV 25 mls/hr Q8HR ADRI Administration Vancomycin HCl 1 gm/ 265 mls @ 166.667 mls/hr 08/12/22 14:00 08/12/22 15:01 Vancomycin HCl 250 mg/ Sodium IV 166.667 mls/hr Chloride Q12H ADRI Administration Insulin Human Isoph/Insulin Regular 30 unit 08/11/22 09:00 08/12/22 08:32 Insulin 70/30 Human 300 Unit/3 Ml Vial SUBQ 30 unit DAILY ADRI Administration Insulin Human Isoph/Insulin Regular 10 unit 08/11/22 21:00 08/11/22 23:13 Insulin 70/30 Human 300 Unit/3 Ml Vial SUBQ 10 unit QPM ADRI Administration Insulin Human Lispro 5 unit 08/10/22 08:00 08/12/22 08:33 Insulin Lispro 300 Unit/3 Ml Pen SUBQ 5 unit [id number] ADRI Administration Protocol Insulin Human Lispro 5 unit 08/10/22 12:00 08/12/22 11:44 Insulin Lispro 300 Unit/3 Ml Pen SUBQ 5 unit QDLUNCH ADRI Administration Protocol Insulin Human Lispro 5 unit 08/10/22 17:00 08/12/22 17:36 Insulin Lispro 300 Unit/3 Ml Pen SUBQ 5 unit QDDINNER ADRI Administration Protocol Insulin Human Lispro 1 - 9 unit 08/10/22 08:00 08/12/22 17:36 Insulin Lispro 300 Unit/3 Ml Pen SUBQ 1 unit 0800,1200,1700,2100 [facility] Administration Protocol Losartan Potassium 50 mg 08/10/22 09:00 08/12/22 08:36 Losartan 50 Mg Tablet PO 50 mg BID ADRI Administration Metoclopramide HCl 5 mg 08/11/22 22:37 08/11/22 23:00 Metoclopramide 10 Mg/2 Ml Vial IVP 5 mg Q6HR PRN Administration NEEDED PER PROVIDER ORDERS Metoprolol Tartrate 25 mg 08/10/22 09:00 08/12/22 08:35 Metoprolol Tartrate 25 Mg Tablet PO 25 mg BID ADRI Administration Pantoprazole Sodium 40 mg 08/10/22 07:00 08/12/22 06:55 Pantoprazole 40 Mg Tablet PO 40 mg QDAC ADRI Administration Polyethylene Glycol 17 gm 08/11/22 09:00 08/12/22 08:31 Polyethylene Glycol 3350 17 Gm Packet PO 17 gm DAILY ADRI Administration Potassium Chloride 20 meq 08/12/22 08:00 08/12/22 08:34 Potassium Chloride 20 Meq Tablet PO 20 meq DAILYWM ADRI Administration Senna 8.6 - 17.2 mg 08/10/22 21:00 08/12/22 08:35 Senna 8.6 Mg Tablet PO 17.2 mg DAILY ADRI Administration Sodium Chloride 10 ml 08/10/22 01:00 08/12/22 17:36 Sodium Chloride Flush 0.9% 10 Ml Syringe IVP Not Given 0100,0900,1700 ADRI - Lab Result Fish Bone Diagrams: 08/13/22 07:33 08/13/22 07:33 - Additional Planning My Orders: My Active Orders 08/12/22 Evaluate and Treat PT [PT] Routine 08/12/22 11:35 Miscellaenous Nursing Order [RC] QSHIFT 08/12/22 14:00 Vancomycin Inj [Vancomycin] 1 gm Vancomycin Inj [Vancomycin Hcl] 250 mg Sodium Chloride 0.9% [Normal Saline 0.9%] 250 ml IV Q12H 08/12/22 17:58 Chest 1 View X-Ray [XR] Stat Subjective - Subjective Patient Reports: Feeling Better (No more fever. No significant pain in fact he has loss of sensation of the feet. Feels like he has a cough and a sore throat today.) Objective Vital Signs: Vital Signs - 24 hr 08/11/22 08/11/22 08/12/22 23:01 23:45 07:25 Temperature 37.1 C 36.7 C Heart Rate [ 101 H 88 Brachial] Respiratory 22 16 Rate Blood Pressure 138/62 H Blood Pressure 128/61 117/65 [Right Brachial artery] O2 Saturation 97 99 08/12/22 08/12/22 08:35 15:53 Temperature 37.1 C Heart Rate [ 88 Brachial] Respiratory 18 Rate Blood Pressure 117/65 Blood Pressure 113/68 [Right Brachial artery] O2 Saturation 96 Oxygen O2 Source Room air I&O (Last 24 Hrs): Intake and Output Totals x24h 08/10/22 08/11/22 08/12/22 23:59 23:59 23:59 Intake Total 4320 4060 3190 Balance 4320 4060 3190 General: Alert, Oriented x3, Other (Obese) HEENT: EOMI, Mucous membr. moist/pink Neck: Supple Neuro: Alert Cardiovascular: No murmurs (Distant heart sounds due to morbid obesity) Respiratory: No respiratory distress, Breath sounds nml Abdomen: Normal bowel sounds, Soft, Other (Obese with a pannus) Extremities: No clubbing, Other (Left midfoot and toes are bandaged and then a sock is on top of that.) - Results Results: Laboratory Results WBC 11.0 x10^3/uL (4.8-10.8) H 08/12/22 04:30 RBC 3.80 10^6/uL (4.70-6.10) L 08/12/22 04:30 Hgb 9.8 g/dL (14.0-18.0) L 08/12/22 04:30 Hct 31.4 % (42.0-52.0) L 08/12/22 04:30 MCV 82.6 fL (80.0-94.0) 08/12/22 04:30 MCH 25.8 pg (27.0-31.0) L 08/12/22 04:30 MCHC 31.2 g/dL (32.0-36.0) L 08/12/22 04:30 RDW 14.2 % (12.0-15.0) 08/12/22 04:30 Plt Count 360 10^3/uL (130-450) 08/12/22 04:30 MPV 10.0 fL (7.4-11.4) 08/12/22 04:30 Neut # (Auto) 8.6 10^3/uL (1.5-6.6) H 08/12/22 04:30 Lymph # (Auto) 1.3 10^3/uL (1.5-3.5) L 08/12/22 04:30 Mccreary # (Auto) 0.8 10^3/uL (0.0-1.0) 08/12/22 04:30 Eos # (Auto) 0.2 10^3/uL (0.0-0.7) 08/12/22 04:30 Baso # (Auto) 0.0 10^3/uL (0.0-0.1) 08/12/22 04:30 Absolute Nucleated RBC 0.00 x10^3/uL 08/12/22 04:30 Total Counted 100 08/09/22 19:59 Band Neuts % (Manual) 2 % (0-10) 08/09/22 19:59 Abnorm Lymph % (Manual) 0 % 08/09/22 19:59 Nucleated RBC % 0.0 /100WBC 08/12/22 04:30 Neutrophils # (Manual) 18.7 10^3/uL (1.5-6.6) H 08/09/22 19:59 Lymphocytes # (Manual) 1.3 10^3/uL (1.5-3.5) L 08/09/22 19:59 Monocytes # (Manual) 1.3 10^3/uL (0.0-1.0) H 08/09/22 19:59 Eosinophils # (Manual) 0.0 10^3/uL (0-0.7) 08/09/22 19:59 Basophils # (Manual) 0.0 10^3/uL (0-0.1) 08/09/22 19:59 Differential Comment MANUAL DIFFERENTIAL 08/09/22 19:59 WBC Morphology 2+ TOXIC GRANULATION (NORMAL) 08/09/22 19:59 Platelet Estimate NORMAL (130-450,000) (NORMAL) 08/09/22 19:59 Platelet Morphology NORMAL APPEARANCE (NORMAL) 08/09/22 19:59 RBC Morph Micro Appear NORMAL APPEARANCE (NORMAL) 08/09/22 19:59 ESR 64 mm/Hr (0-15) H 08/09/22 19:59 Sodium 139 mmol/L (135-145) 08/12/22 04:30 Potassium 3.6 mmol/L (3.5-5.0) 08/12/22 04:30 Chloride 104 mmol/L (101-111) 08/12/22 04:30 Carbon Dioxide 22 mmol/L (21-32) 08/12/22 04:30 Anion Gap 13.0 (6-13) 08/12/22 04:30 BUN 23 mg/dL (6-20) H 08/12/22 04:30 Creatinine 1.1 mg/dL (0.6-1.2) 08/12/22 04:30 Estimated GFR (MDRD) 75 (>89) L 08/12/22 04:30 Glucose 174 mg/dL (70-100) H 08/12/22 04:30 POC Whole Bld Glucose 141 mg/dL (70 - 100) H 08/12/22 16:28 Estimat Average Glucose 298 mg/dL (70-100) H 08/10/22 06:26 Hemoglobin A1c % 12.0 % (4.27-6.07) H 08/10/22 06:26 Lactic Acid 1.4 mmol/L (0.5-2.2) 08/09/22 21:46 Calcium 7.9 mg/dL (8.5-10.3) L 08/12/22 04:30 Total Bilirubin 1.4 mg/dL (0.2-1.0) H 08/10/22 06:26 AST 22 IU/L (10-42) 08/10/22 06:26 ALT 21 IU/L (10-60) 08/10/22 06:26 Alkaline Phosphatase 113 IU/L (42-121) 08/10/22 06:26 C-Reactive Protein 29.1 mg/dL (0-1.0) H 08/12/22 04:30 Total Protein 6.6 g/dL (6.7-8.2) L 08/10/22 06:26 Albumin 2.7 g/dL (3.2-5.5) L 08/10/22 06:26 Globulin 3.9 g/dL (2.1-4.2) 08/10/22 06:26 Albumin/Globulin Ratio 0.7 (1.0-2.2) L 08/10/22 06:26 Triglycerides 136 mg/dL (-149) 08/10/22 06:26 Cholesterol 153 mg/dL (-199) 08/10/22 06:26 LDL Cholesterol, Calc 97 mg/dL (-129) 08/10/22 06:26 VLDL Cholesterol 27 mg/dL 08/10/22 06:26 HDL Cholesterol 29 mg/dL (60-) L 08/10/22 06:26 LDL/HDL Ratio 3.3 (<3.6) 08/10/22 06:26 Cholesterol/HDL Ratio 5.3 (<5.0) 08/10/22 06:26 Lipase 23 U/L (22-51) 08/09/22 19:59 Procalcitonin 0.84 ng/mL (<0.5) H 08/09/22 21:46 TSH 0.84 uIU/mL (0.34-5.60) 08/10/22 06:26 Urine Color DARK YELLOW 08/09/22 20:27 Urine Clarity CLEAR (CLEAR) 08/09/22 20: Urine pH 5.5 PH (5.0-7.5) 08/09/22 20:27 Ur Specific [place] 1.015 (1.002-1.030) 08/09/22 20:27 Urine Protein NEGATIVE mg/dL (NEGATIVE) 08/09/22 20:27 Urine Glucose (UA) >=1000 mg/dL (NEGATIVE) H 08/09/22 20:27 Urine Ketones TRACE mg/dL (NEGATIVE) 08/09/22 20:27 Urine Occult Blood TRACE-INTA (NEGATIVE) 08/09/22 20:27 Urine Nitrite NEGATIVE (NEGATIVE) 08/09/22 20: Urine Bilirubin SMALL (NEGATIVE) H 08/09/22 20:27 Urine Urobilinogen 2 E.U./dL (NORMAL) H 08/09/22 20:27 Ur Leukocyte Esterase NEGATIVE (NEGATIVE) 08/09/22 20:27 Ur Microscopic Review NOT INDICATED 08/09/22 20:27 Urine Culture Comments NOT INDICATED 08/09/22 20:27 Nasal Adenovirus (PCR) NOT DETECTED 08/09/22 20:27 Nasal B. parapertussis DNA (PCR) NOT DETECTED 08/09/22 20:27 Nasal Coronavir 229E PCR NOT DETECTED 08/09/22 20:27 Nasal Coronavir HKU1 PCR NOT DETECTED 08/09/22 20:27 Nasal Coronavir NL63 PCR NOT DETECTED 08/09/22 20:27 Nasal Coronavir OC43 PCR NOT DETECTED 08/09/22 20:27 Nasal Enterovir/Rhinovir PCR NOT DETECTED 08/09/22 20:27 Nasal Influenza B PCR NOT DETECTED 08/09/22 20:27 Nasal Influenza A PCR NOT DETECTED 08/09/22 20:27 Nasal Parainfluen 1 PCR NOT DETECTED 08/09/22 20:27 Nasal Parainfluen 2 PCR NOT DETECTED 08/09/22 20:27 Nasal Parainfluen 3 PCR NOT DETECTED 08/09/22 20:27 Nasal Parainfluen 4 PCR NOT DETECTED 08/09/22 20:27 Nasal RSV (PCR) NOT DETECTED 08/09/22 20:27 Nasal B.pertussis DNA PCR NOT DETECTED 08/09/22 20:27 Nasal C.pneumoniae (PCR) NOT DETECTED 08/09/22 20:27 Yannick Human Metapneumo PCR NOT DETECTED 08/09/22 20:27 Nasal M.pneumoniae (PCR) NOT DETECTED 08/09/22 20:27 Nasal SARS-CoV-2 (PCR) NOT DETECTED 08/09/22 20:27 Last Dose Date 08/11/22 08/11/22 17:01 Last Dose Time 18108/11/22 17:01 Vancomycin Trough 24.7 ug/mL (10.0-20.0) H 08/11/22 17:01 Sepsis Event Note (H) - Evaluation Current Stage of Sepsis: Ruled out
--- NOTE | 2022-08-12 18:34 | XRAY Report ---
PROCEDURE: Chest 1 View X-Ray INDICATIONS: Cough, sputum TECHNIQUE: One view of the chest was acquired. COMPARISON: 08/09/2022 FINDINGS: Surgical changes and devices: None. Lungs and pleura: An incomplete inspiratory result is noted, with low lung volumes and crowding of t he vascular markings. No focal infiltrates are seen. No large pneumothorax or large pleural effusion can be seen. minimal interstitial prominence can be seen. Mediastinum: Mediastinal contours appear normal. Heart size is normal. Bones and chest wall: No suspicious bony lesions. Overlying soft tissues appear unremarkable. IMPRESSION: The lung volumes can be seen with minimal interstitial prominence. Please consider mild pulmonary pete ma versus atypical infiltrate. Differential diagnosis also includes artifact from the low lung volume s. No focal consolidated infiltrates can be seen. Please consider a short-term follow-up 2 view chest series (performed in deep inspiration) for furthe r evaluation. Reviewed by: Bravo Curtis MD on 08/12/2022 5:33 PM [facility] Approved by: Bravo Curtis MD on 08/12/2022 5:33 PM [facility] Station ID: [id number]
[2022-08-13] MEDS: SODIUM CHLORIDE FLUSH 0.9% 10 ML SYRINGE IVP SCH ×4 (00:48→22:20)
[2022-08-13] MEDS: VANCOMYCIN INJ 1 GM, VANCOMYCIN INJ 250 MG in SODIUM CHLORIDE 0.9% 250 ML IV SCH ×2 (02:42→14:03)
[2022-08-13] MEDS: PIPERACILLIN/TAZOBACTAM 3.375 GM in SODIUM CHLORIDE 0.9% MINIBAG 100 ML IV SCH ×3 (06:22→22:14)
[2022-08-13] MEDS: SODIUM CHLORIDE 0.9% 1,000 ML IV SCH ×3 (06:22→22:18)
[2022-08-13] MEDS: PANTOPRAZOLE 40 MG TABLET PO SCH (06:22)
--- NOTE | 2022-08-13 07:35 | PROVIDER PROGRESS NOTE ---
Assessment/Plan - Problem List (1) Diabetic foot infection Assessment/Plan: No bony infection was suspected on plain film. All labs were reviewed: White cell count, C-reactive protein and sed rate are still abnormal and indicate that he still has a way to go to improve. The last Hospitalist explained to him that he will be on antibiotics for a few days and then he will be transitioned over to oral antibiotics. He finally has not had a fever since 08/10 and WBC has improved since antibx were started Blood cultures are negative to date. No wound cultures were sent. PT evaluated him and advised him how to ambulate: using crutches and no-weight bearing was the advice. Today we got an Inpt consult from [place] [facility] [place] Wren. Dr. Wren came and spoke to me in person after he debrided the wound. Dr. Wren found a large area on the lateral foot containing an abscess and had purulent drainage which then extended to the second wound on the lower part of his foot. Dr. Wren sent off for aerobic and anaerobic cultures of this material. Plan: Empiric Zosyn and vancomycin to continue. Await wound cx results Dr Wren also advised that he have an MRI to look for other areas of abscess within the soft tissues. Recommendations are to change the dressing every 2 days Continue no weightbearing with the foot Follow CBC daily (2) Cellulitis of left foot Assessment/Plan: As in #1 (3) Difficulty swallowing solids Assessment/Plan: Pt is c/o swallowing food and feeling as if it's stuck in his esophagus. Pt apparently has this problem at home and takes Reglan for it. Pt specifically requested Reglan. Pt is not in any acute distress, other than feeling like the food is stuck. He is able to drink liquids, etc. The night RN requested an order for Reglan IV. The Telemedicine night doctor ordered Reglan prn. 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 Plan: Will continue the order for prn Reglan No indication for an EGD at this time and we have no flouro to do a swallowing study 4. Type 2 diabetes mellitus, uncontrolled, with hyperglycemia, with co mplications of diabetic foot infection, on long-term insulin The last Hospitalist explained to him that we do not recommend giving 50 units twice a day. We have him on 10 units at night and 30 units in the morning. We expect the glucoses to be poorly controlled while he has an active infection Plan: Continue Insulin treatment. Continue to watch his sugar carefully. Continue to encourage him to eat (a lower) 2000 dirk a day. When his foot eventually heals and he starts walking every day, aim for an A1c of less than 7%. 5. Morbid obesity BMI 50-59.9 As per Hx. This complicates his care. 6. Hypokalemia. Plan: Supplement with oral potassium and follow BMP daily 7. Pseudohyponatremia Resolved. - Current Meds Current Meds: Current Medications Generic Name Dose Route Start Last Admin Trade Name Freq PRN Reason Stop Dose Admin Acetaminophen 650 mg 08/09/22 21:56 08/11/22 15:32 Acetaminophen 325 Mg Tablet PO 650 mg Q4HR PRN Administration Pain 1 to 4, or Fever Hydrocodone Bitart/Acetaminophen 1 tab 08/09/22 21:56 08/11/22 23:12 Hydrocod/Acetam 10 Mg/325 Mg Tablet PO 1 tab Q4HR PRN Administration Pain 8 to 10 Hydrocodone Bitart/Acetaminophen 1 tab 08/09/22 21:56 08/12/22 18:00 Hydrocod/Acetam 5/325 Mg Tablet PO 1 tab Q4HR PRN Administration Pain 5 to 7 Carboxymethylcellulose 1 drops 08/10/22 01:01 08/12/22 14:33 Carboxymethylcellulose Ophth Drops EACHEYE 1 drops PRN PRN Administration Dry Eye Docusate Sodium 250 - 500 mg 08/10/22 21:00 08/12/22 08:35 Docusate Sodium 250 Mg Capsule PO 500 mg DAILY ADRI Administration Guaifenesin 600 mg 08/10/22 21:00 08/12/22 21:46 Guaifenesin 600 Mg Tablet PO 600 mg BID ADRI Administration Sodium Chloride 1,000 mls @ 100 mls/hr 08/09/22 22:00 08/13/22 06:22 Normal Saline 0.9% IV 100 mls/hr .Q10H ADRI Administration Piperacillin Sod/Tazobactam 100 mls @ 25 mls/hr 08/09/22 22:00 08/13/22 06:22 Sod 3.375 gm/ Sodium Chloride IV 25 mls/hr Q8HR ADRI Administration Vancomycin HCl 1 gm/ 265 mls @ 166.667 mls/hr 08/12/22 14:00 08/13/22 04:41 Vancomycin HCl 250 mg/ Sodium IV Infused Chloride Q12H ADRI Infusion Insulin Human Isoph/Insulin Regular 30 unit 08/11/22 09:00 08/12/22 08:32 Insulin 70/30 Human 300 Unit/3 Ml Vial SUBQ 30 unit DAILY ADRI Administration Insulin Human Isoph/Insulin Regular 10 unit 08/11/22 21:00 08/12/22 21:48 Insulin 70/30 Human 300 Unit/3 Ml Vial SUBQ 10 unit QPM ADRI Administration Insulin Human Lispro 5 unit 08/10/22 08:00 08/12/22 08:33 Insulin Lispro 300 Unit/3 Ml Pen SUBQ 5 unit QDBREAKFAST ADRI Administration Protocol Insulin Human Lispro 5 unit 08/10/22 12:00 08/12/22 11:44 Insulin Lispro 300 Unit/3 Ml Pen SUBQ 5 unit QDLUNCH ADRI Administration Protocol Insulin Human Lispro 5 unit 08/10/22 17:00 08/12/22 17:36 Insulin Lispro 300 Unit/3 Ml Pen SUBQ 5 unit QDDINNER ADRI Administration Protocol Insulin Human Lispro 1 - 9 unit 08/10/22 08:00 08/12/22 21:47 Insulin Lispro 300 Unit/3 Ml Pen SUBQ 3 unit 0800,1200,1700,2100 ADRI Administration Protocol Losartan Potassium 50 mg 08/10/22 09:00 08/12/22 21:47 Losartan 50 Mg Tablet PO 50 mg BID ADRI Administration Metoclopramide HCl 5 mg 08/11/22 22:37 08/11/22 23:00 Metoclopramide 10 Mg/2 Ml Vial IVP 5 mg Q6HR PRN Administration NEEDED PER PROVIDER ORDERS Metoprolol Tartrate 25 mg 08/10/22 09:00 08/12/22 21:46 Metoprolol Tartrate 25 Mg Tablet PO 25 mg BID ADRI Administration Pantoprazole Sodium 40 mg 08/10/22 07:00 08/13/22 06:22 Pantoprazole 40 Mg Tablet PO 40 mg QDAC ADRI Administration Polyethylene Glycol 17 gm 08/11/22 09:00 08/12/22 08:31 Polyethylene Glycol 3350 17 Gm Packet PO 17 gm DAILY ADRI Administration Potassium Chloride 20 meq 08/12/22 08:00 08/12/22 08:34 Potassium Chloride 20 Meq Tablet PO 20 meq DAILYWM ADRI Administration Senna 8.6 - 17.2 mg 08/10/22 21:00 08/12/22 08:35 Senna 8.6 Mg Tablet PO 17.2 mg DAILY ADRI Administration Sodium Chloride 10 ml 08/10/22 01:00 08/13/22 00:48 Sodium Chloride Flush 0.9% 10 Ml Syringe IVP Not Given 0100,0900,1700 ADRI - Lab Result Fish Bone Diagrams: 08/13/22 07:33 08/13/22 07:33 - Additional Planning My Orders: My Active Orders 08/12/22 11:35 Miscellaenous Nursing Order [RC] QSHIFT 08/12/22 14:00 Vancomycin Inj [Vancomycin] 1 gm Vancomycin Inj [Vancomycin Hcl] 250 mg Sodium Chloride 0.9% [Normal Saline 0.9%] 250 ml IV Q12H Subjective - Subjective Patient Reports: Resting Comfortably Objective Vital Signs: Vital Signs - 24 hr 08/12/22 08/12/22 08/12/22 08:35 15:53 21:46 Temperature 37.1 C Heart Rate [ 88 Brachial] Respiratory 18 Rate Blood Pressure 117/65 115/63 Blood Pressure 113/68 [Right Brachial artery] O2 Saturation 96 08/12/22 08/13/22 23:53 07:25 Temperature 36.9 C 37.9 C Heart Rate [ 89 94 Brachial] Respiratory 16 16 Rate Blood Pressure Blood Pressure 107/60 135/73 H [Right Brachial artery] O2 Saturation 98 99 Oxygen O2 Source Room air I&O (Last 24 Hrs): Intake and Output Totals x24h 08/11/22 08/12/22 08/13/22 23:59 23:59 23:59 Intake Total 4060 4585 1865 Balance 4060 4585 1865 General: Alert, Oriented x3 HEENT: Atraumatic, Mucous membr. moist/pink Neck: Supple Neuro: Alert Cardiovascular: No murmurs Respiratory: No respiratory distress Abdomen: Soft, Other (Obese) Extremities: Other (L foot bandaged) - Results Results: Laboratory Results WBC 11.0 x10^3/uL (4.8-10.8) H 08/12/22 04:30 RBC 3.80 10^6/uL (4.70-6.10) L 08/12/22 04:30 Hgb 9.8 g/dL (14.0-18.0) L 08/12/22 04:30 Hct 31.4 % (42.0-52.0) L 08/12/22 04:30 MCV 82.6 fL (80.0-94.0) 08/12/22 04:30 MCH 25.8 pg (27.0-31.0) L 08/12/22 04:30 MCHC 31.2 g/dL (32.0-36.0) L 08/12/22 04:30 RDW 14.2 % (12.0-15.0) 08/12/22 04:30 Plt Count 360 10^3/uL (130-450) 08/12/22 04:30 MPV 10.0 fL (7.4-11.4) 08/12/22 04:30 Neut # (Auto) 8.6 10^3/uL (1.5-6.6) H 08/12/22 04:30 Lymph # (Auto) 1.3 10^3/uL (1.5-3.5) L 08/12/22 04:30 [place] # (Auto) 0.8 10^3/uL (0.0-1.0) 08/12/22 04:30 Eos # (Auto) 0.2 10^3/uL (0.0-0.7) 08/12/22 04:30 Baso # (Auto) 0.0 10^3/uL (0.0-0.1) 08/12/22 04:30 Absolute Nucleated RBC 0.00 x10^3/uL 08/12/22 04:30 Total Counted 100 08/09/22 19:59 Band Neuts % (Manual) 2 % (0-10) 08/09/22 19:59 Abnorm Lymph % (Manual) 0 % 08/09/22 19:59 Nucleated RBC % 0.0 /100WBC 08/12/22 04:30 Neutrophils # (Manual) 18.7 10^3/uL (1.5-6.6) H 08/09/22 19:59 Lymphocytes # (Manual) 1.3 10^3/uL (1.5-3.5) L 08/09/22 19:59 Monocytes # (Manual) 1.3 10^3/uL (0.0-1.0) H 08/09/22 19:59 Eosinophils # (Manual) 0.0 10^3/uL (0-0.7) 08/09/22 19:59 Basophils # (Manual) 0.0 10^3/uL (0-0.1) 08/09/22 19:59 Differential Comment MANUAL DIFFERENTIAL 08/09/22 19:59 WBC Morphology 2+ TOXIC GRANULATION (NORMAL) 08/09/22 19:59 Platelet Estimate NORMAL (130-450,000) (NORMAL) 08/09/22 19:59 Platelet Morphology NORMAL APPEARANCE (NORMAL) 08/09/22 19:59 RBC Morph Micro Appear NORMAL APPEARANCE (NORMAL) 08/09/22 19:59 ESR 64 mm/Hr (0-15) H 08/09/22 19:59 Sodium 139 mmol/L (135-145) 08/12/22 04:30 Potassium 3.6 mmol/L (3.5-5.0) 08/12/22 04:30 Chloride 104 mmol/L (101-111) 08/12/22 04:30 Carbon Dioxide 22 mmol/L (21-32) 08/12/22 04:30 Anion Gap 13.0 (6-13) 08/12/22 04:30 BUN 23 mg/dL (6-20) H 08/12/22 04:30 Creatinine 1.1 mg/dL (0.6-1.2) 08/12/22 04:30 Estimated GFR (MDRD) 75 (>89) L 08/12/22 04:30 Glucose 174 mg/dL (70-100) H 08/12/22 04:30 POC Whole Bld Glucose 153 mg/dL (70 - 100) H 08/13/22 07:15 Estimat Average Glucose 298 mg/dL (70-100) H 08/10/22 06:26 Hemoglobin A1c % 12.0 % (4.27-6.07) H 08/10/22 06:26 Lactic Acid 1.4 mmol/L (0.5-2.2) 08/09/22 21:46 Calcium 7.9 mg/dL (8.5-10.3) L 08/12/22 04:30 Total Bilirubin 1.4 mg/dL (0.2-1.0) H 08/10/22 06:26 AST 22 IU/L (10-42) 08/10/22 06:26 ALT 21 IU/L (10-60) 08/10/22 06:26 Alkaline Phosphatase 113 IU/L (42-121) 08/10/22 06:26 C-Reactive Protein 29.1 mg/dL (0-1.0) H 08/12/22 04:30 Total Protein 6.6 g/dL (6.7-8.2) L 08/10/22 06:26 Albumin 2.7 g/dL (3.2-5.5) L 08/10/22 06:26 Globulin 3.9 g/dL (2.1-4.2) 08/10/22 06:26 Albumin/Globulin Ratio 0.7 (1.0-2.2) L 08/10/22 06:26 Triglycerides 136 mg/dL (-149) 08/10/22 06:26 Cholesterol 153 mg/dL (-199) 08/10/22 06:26 LDL Cholesterol, Calc 97 mg/dL (-129) 08/10/22 06:26 VLDL Cholesterol 27 mg/dL 08/10/22 06:26 HDL Cholesterol 29 mg/dL (60-) L 08/10/22 06:26 LDL/HDL Ratio 3.3 (<3.6) 08/10/22 06:26 Cholesterol/HDL Ratio 5.3 (<5.0) 08/10/22 06:26 Lipase 23 U/L (22-51) 08/09/22 19:59 Procalcitonin 0.84 ng/mL (<0.5) H 08/09/22 21:46 TSH 0.84 uIU/mL (0.34-5.60) 08/10/22 06:26 Urine Color DARK YELLOW 08/09/22 20:27 Urine Clarity CLEAR (CLEAR) 08/09/22 20:27 Urine pH 5.5 PH (5.0-7.5) 08/09/22 20: Ur Specific [place] 1.015 (1.002-1.030) 08/09/22 20:27 Urine Protein NEGATIVE mg/dL (NEGATIVE) 08/09/22 20:27 Urine Glucose (UA) >=1000 mg/dL (NEGATIVE) H 08/09/22 20:27 Urine Ketones TRACE mg/dL (NEGATIVE) 08/09/22 20:27 Urine Occult Blood TRACE-INTA (NEGATIVE) 08/09/22 20:27 Urine Nitrite NEGATIVE (NEGATIVE) 08/09/22 20:27 Urine Bilirubin SMALL (NEGATIVE) H 08/09/22 20:27 Urine Urobilinogen 2 E.U./dL (NORMAL) H 08/09/22 20:27 Ur Leukocyte Esterase NEGATIVE (NEGATIVE) 08/09/22 20:27 Ur Microscopic Review NOT INDICATED 08/09/22 20:27 Urine Culture Comments NOT INDICATED 08/09/22 20:27 Nasal Adenovirus (PCR) NOT DETECTED 08/09/22 20:27 Nasal B. parapertussis DNA (PCR) NOT DETECTED 08/09/22 20:27 Nasal Coronavir 229E PCR NOT DETECTED 08/09/22 20:27 Nasal Coronavir HKU1 PCR NOT DETECTED 08/09/22 20:27 Nasal Coronavir NL63 PCR NOT DETECTED 08/09/22 20:27 Nasal Coronavir OC43 PCR NOT DETECTED 08/09/22 20:27 Nasal Enterovir/Rhinovir PCR NOT DETECTED 08/09/22 20:27 Nasal Influenza B PCR NOT DETECTED 08/09/22 20:27 Nasal Influenza A PCR NOT DETECTED 08/09/22 20:27 Nasal Parainfluen 1 PCR NOT DETECTED 08/09/22 20:27 Nasal Parainfluen 2 PCR NOT DETECTED 08/09/22 20:27 Nasal Parainfluen 3 PCR NOT DETECTED 08/09/22 20:27 Nasal Parainfluen 4 PCR NOT DETECTED 08/09/22 20:27 Nasal RSV (PCR) NOT DETECTED 08/09/22 20:27 Nasal B.pertussis DNA PCR NOT DETECTED 08/09/22 20:27 Nasal C.pneumoniae (PCR) NOT DETECTED 08/09/22 20:27 Yannick Human Metapneumo PCR NOT DETECTED 08/09/22 20:27 Nasal M.pneumoniae (PCR) NOT DETECTED 08/09/22 20:27 Nasal SARS-CoV-2 (PCR) NOT DETECTED 08/09/22 20:27 Last Dose Date 08/11/22 08/11/22 17:01 Last Dose Time 1814 08/11/22 17:01 Vancomycin Trough 24.7 ug/mL (10.0-20.0) H 08/11/22 17:01 Sepsis Event Note (H) - Evaluation Current Stage of Sepsis: Ruled out
[2022-08-13 07:39] LABS: BASOPHILS % (AUTO) 0.2 %; EOSINOPHILS # (AUTO) 0.1 10^3/uL (0.0-0.7); EOSINOPHILS % (AUTO) 1.3 %; HCT - HEMATOCRIT 31.8 % (42.0-52.0); LYMPHOCYTES # (AUTO) 1.2 10^3/uL (1.5-3.5); LYMPHOCYTES % (AUTO) 11.9 %; MEAN CORPUSCULAR HEMOGLOBIN 25.9 pg (27.0-31.0); MEAN CORPUSCULAR HGB CONC 31.4 g/dL (32.0-36.0); MEAN CORPUSCULAR VOLUME 82.4 fL (80.0-94.0); MEAN PLATELET VOLUME 9.8 fL (7.4-11.4); MONOCYTES # (AUTO) 0.9 10^3/uL (0.0-1.0); MONOCYTES % (AUTO) 8.7 %; NEUTROPHILS % (AUTO) 77.5 %; PLT - PLATELET COUNT 423 10^3/uL (130-450); RED BLOOD COUNT 3.86 10^6/uL (4.70-6.10); RED CELL DISTRIBUTION WIDTH 14.6 % (12.0-15.0); WHITE BLOOD COUNT 10.3 x10^3/uL (4.8-10.8)
[2022-08-13] MEDS: INSULIN LISPRO 300 UNIT/3 ML PEN SUBQ SCH ×7 (07:51→20:59)
[2022-08-13] MEDS: POTASSIUM CHLORIDE 20 MEQ TABLET PO SCH (07:51)
[2022-08-13] MEDS: HYDROcod/ACETAM 5/325 MG TABLET PO PRN ×2 (07:53→18:45)
[2022-08-13] MEDS: DOCUSATE SODIUM 250 MG CAPSULE PO SCH (07:53)
[2022-08-13] MEDS: METOPROLOL TARTRATE 25 MG TABLET PO SCH ×2 (07:54→20:51)
[2022-08-13] MEDS: SENNA 8.6 MG TABLET PO SCH (07:54)
[2022-08-13] MEDS: guaiFENesin 600 MG TABLET PO SCH ×2 (07:54→20:52)
[2022-08-13] MEDS: polyethylene glycoL 3350 17 GM PACKET PO SCH (07:55)
[2022-08-13] MEDS: INSULIN 70/30 HUMAN 300 UNIT/3 ML VIAL SUBQ SCH ×2 (07:55→20:54)
[2022-08-13] MEDS: LOSARTAN 50 MG TABLET PO SCH ×2 (07:55→20:52)
[2022-08-13 08:23] LABS: CALCIUM 7.4 mg/dL (8.5-10.3); CREATININE 0.9 mg/dL (0.6-1.2); CRP - C-REACTIVE PROTEIN 22.3 mg/dL (0-1.0); POTASSIUM 3.8 mmol/L (3.5-5.0)
--- NOTE | 2022-08-13 13:31 | WOUND CARE CONSULTATION ---
Referring Provider Name of Referring Provider:: Daiana Canales MD Consult Date: 08/13/22 Chief Complaint - Chief Complaint Chief Complaint: Foot wounds. History of Present Illness - History Obtained From Records Reviewed: EMR History obtained from: Patient via tele-park recreation manager Exam Limitations: None - History of Present Illness HPI: 41-year-old obese, poorly controlled, insulin-requiring, type II diabetic male. He reports an ulcer started on the plantar left 5th MTH area about 8 months ago. About 4 months ago, he was seen in primary care clinic and referred to podiatry, but never arranged an appointment. He subsequently traveled to [place] and has remained there for the last 4 months. He felt the ulcer was healing, but when he returned from [place], 2 days prior to admission, he noted subjective fevers, swelling and advancing circumferential redness of the left foot and calf. At about the same time, he developed a second ulcer on the lateral aspect of his left foot. This was productive of a serosanguineous drainage. Admitted through the emergency department on 08/09/2022 for diabetic foot infection/cellulitis of the left lower extremity/SIRS. Broad spectrum IV antibiotics have been initiated (Vancomycin and Zosyn). He states he has been improving since. He has no history of previous DFUs. He has been evaluated by nutrition services during this admission. There are no current c/o FCS, fatigue, malaise. History - Past Medical History Cardiovascular: reports: Hypertension Neuro: reports: None Endocrine/Autoimmune: reports: Type 2 diabetes GI: reports: Other : reports: None Psych: reports: None Musculoskeletal: reports: None MRSA Hx?: No Other Past Medical History: macular degeneration?, colitis, sciatica - POLST Patient has POLST: No Objective Comments/Notes: Constitutional: NAD. Alert and conversant. Vitals done on hospital floor reviewed. Respiratory: Normal respiratory effort. Cardiovascular: Regular rate. The left foot and calf are edematous. Circumferential left foot and calf erythema is noted to be retreating nicely from marked boundary. Musculoskeletal: No prior amputations. No foot/toe deformities. Neurological: Loss of protective sensation noted bilateral feet to Shonto Bradley monofilament testing. Lower Extremity Assessment: Extremity edema: L present. R absent. Extremity color: L red. R normal. Extremity hair growth: L present on toes. R present on toes. Capillary refill: L less than 3 seconds. R less than 3 seconds. Hand-held Doppler: L DP: Monophasic. L PT: Monophasic. R DP: Multiphasic. R PT: Multiphasic. Labs: 08/13/22: WBC 10.3 (down from 21.2 on admission), H&H 10.0/31.8, MCV 82.4, platelets 423. CRP 22.3 (up to 1). 08/10/22: A1c 12.0. 08/09/22: ESR 64, procalcitonin 0.84 Micro: 08/09/22: Blood culture no growth X 2 days (preliminary). Imagin08/11/22: Duplex scan lower extremity artery noted for monophasic waveforms on the left, from the proximal SFA distally. However, there was no hemodynamically significant stenosis identified from the common femoral artery through the popliteal artery. 08/09/22: L leg venous ultrasound was negative for DVT. Reactive lymphadenopathy was seen within the groin consistent with a presentation of cellulitis. 08/09/22: X-ray left foot without evidence of osteomyelitis. - Wound Assessment Wound #1 is a full-thickness diabetic foot ulcer of the left lateral foot at the level of the fifth metatarsal head. It measures 1.5 x 1.8 x 0.1 cm (L x W x D). There is extensive undermining from 3:00 to 12:00 with maximum distance of 3.5 cm at 11:00. There is copious yellow purulent drainage noted which has mild odor. The patient reports a wound pain level 0/10. The wound margin is unattached. The wound bed is has no epithelialization, no eschar, yes large amount of slough obscuring the wound bed and protruding through the wound aperture, no granulation. The periwound skin texture is edematous and underg oing desquamation. No crepitus or fluctuance. The periwound skin moisture is significantly macerated. The periwound skin temperature is elevated. The periwound skin is erythematous. Exposed structures: Fascia. Wound #2 is a full-thickness diabetic foot ulcer of the left plantar foot at the level of the fifth metatarsal head. It measures 1.6 x 1.6 x 0.8 cm (L x W x D). There is undermining from 10:00 to 2:00 with maximum distance of 1 cm at 1:00. There is small amount of serosanguineous drainage noted which has no odor. The patient reports a wound pain level 0/10. The wound margin is heavily callused and unattached. The wound bed has no epithelialization, no eschar, yes slough, yes red firm granulation. The periwound skin texture is normal. The periwound skin moisture is normal. The periwound skin temperature is elevated. The periwound skin is erythematous. Exposed structures: Adipose. I was unable to demonstrate a communication between the wounds, but would not be surprised if they did indeed communicate. Procedure - Procedure Note Wound #1: After informed consent was obtained, a skin/subcutaneous tissue level surgical debridement with a total area of 3.15 square centimeters was performed by Juan Wren MD. Using a scissors, forceps, and curette, dermis, epidermis, and subcutaneous tissues were removed along with devitalized tissue: Exudate and slough. Pain control was achieved using insensate. A timeout was conducted prior to the start of the procedure. A minimal amount of bleeding was controlled with pressure. The procedure was tolerated well. Postdebridement measurements: 1.5 x 2.1 x 1.4 cm (L x W x D). Wound #2: After informed consent was obtained, a skin/subcutaneous tissue level surgical debridement with a total area of 3.06 square centimeters was performed by Juan Wren MD. Using a curette, dermis, epidermis, and subcutaneous tissues were removed along with devitalized tissue: Callus, exudate and slough. Pain control was achieved using insensate. A timeout was conducted prior to the start of the procedure. A minimal amount of bleeding was controlled with pressure. The procedure was tolerated well. Postdebridement measurements: 1.8 x 1.7 x 1.0 cm (L x W x D). Conclusion and Plan - Problem List (1) Type 2 diabetes mellitus with foot ulcer Qualifiers: Qualified Code(s): E11.621 - Type 2 diabetes mellitus with foot ulcer; L97.509 - Non-pressure chronic ulcer of other part of unspecified foot with unspecified severity; Z79.4 - shelter (current) use of insulin Assessment/Plan: Educated regarding importance of blood glucose control to optimize healing and p revent complications of diabetes. Management as per hospital team. (2) Non-pressure chronic ulcer of other part of left foot with other specified severity Assessment/Plan: The left lateral foot ulcer is deep and extensive. Concern for deep tissue infection. Recommend MRI WO/W contrast and orthopedic surgery consult for further evaluation and recommendations. He is at high risk for amputation. Wounds cleansed with normal saline and Anasept. Periwound #1 treated with silver Hydrofiber. Wounds #1 and #2 dressed with silver Hydrofiber, OPTi lock superabsorbent, and secured with rolled gauze and tape. Offloading: Total NWB L foot using crutches. Goals: Balance moisture Resolve infection Remove necrotic/devitalized tissue Redistribute pressure Manage co-morbidities Wound stabilization pending further evaluation. Limb salvage Appropriate follow up instructions were given. He was given a follow-up appointment in the outpatient [facility] in 7 days, sooner PRN. (3) Non-pressure chronic ulcer of other part of left foot with fat layer exposed Assessment/Plan: See above. (4) Cellulitis of left lower extremity Assessment/Plan: Agree with IV antibiotics as his inpatient team. Specimen for aerobic and anaerobic c&s taken from ulcer #1. Inpatient team to target results as appropriate. (5) Peripheral vascular disease, unspecified Assessment/Plan: LLE monophasic wave forms on arterial US without demonstration of hemodynamical ly significant stenosis. Inpatient team could consider CT angiogram abdominal aorta with bilateral lower extremity runoff to further characterize the extent of PAD and potential for spontaneous healing. - Home Meds/Allergies Allergies No Known Drug Allergies Allergy (Verified 08/12/22 08:50) Home Medications Insulin 70/30 Human [NovoLIN] 50 units SUBQ DAILY 08/09/22 [History Confirmed 08/09/22] Losartan [Cozaar] 50 mg PO BID 08/09/22 [History Confirmed 08/09/22] Omeprazole 40 mg PO DAILY 08/09/22 [History Confirmed 08/09/22] hydroCHLOROthiazide [Hydrodiuril] 25 mg PO DAILY 08/10/22 [History Confirmed 08/10/22] metFORMIN [Glucophage] 850 mg PO TIDWM 08/10/22 [History Confirmed 08/10/22] - Plan Condition/Complexity: Stable Plan Discussed with: Patient
--- NOTE | 2022-08-13 14:16 | PHARMACY PROGRESS NOTE ---
- Therapy Status Vancomycin regimen day #: 5 Therapy status: Trough supratherapeutic Basis for treatment: Empirical Treatment indication: DIABETIC FOOT CELLULITIS Trough goal: 10-15 Concurrent antibiotics: ZOSYN - NIKO Risk Risk level for Acute Kidney Injury: High Acute Kidney Injury risk factors: Piperacillin/Tozobactam, Wt >100kg or BMI >40, Diabetes, Total daily Vancomycin >4 grams - Monitoring and Recommendation Clinical response to treatment: I&O Previous 24 hours 08/11/22 08/12/22 08/13/22 23:59 23:59 23:59 Intake Total 4060 4585 2945 Balance 4060 4585 2945 Lab Results 08/13/22 08/12/22 08/11/22 07:33 04:30 17:01 ESR BUN 20 23 H 20 Creatinine 0.9 1.1 0.9 Estimated GFR (MDRD) 94 75 L 94 08/10/22 08/09/22 08/09/22 06:26 19:59 19:59 ESR 64 H BUN 28 H 33 H Creatinine 0.9 1.2 Estimated GFR (MDRD) 94 67 L Vancomycin Monitoring 08/11/22 17:01 Vancomycin Trough 24.7 H Cultures 08/09/22 19:59 Blood Blood Culture - Preliminary NO GROWTH AFTER 2 DAYS 08/09/22 19:59 Blood Blood Culture - Preliminary NO GROWTH AFTER 2 DAYS PT WAS ON VANCO 1.5G Q8H. LEVEL WAS DRAWN APPROPRIATELY TIMED ON 08/11/22 BEFORE THE 5TH DOSE AND YIELDED 24.7. AT THAT TIME, BUN/SCR ALSO INCREASED SLIGHTLY FROM BASELINE. GIVEN THAT HIS LEVEL WAS HIGH ON WHAT SEEMED TO BE AN APPROPIRATE DOSE AND THE BUMP IN SCR AND BUN, I CHANGED TO 1.25G Q12H. YESTERDAY I ALSO WROTE DR Marissa GOMEZ SBAR TO POSSIBLY D/C VANCO. VANCO IS STILL GOING. WOUND CULTURE PLANNED FOR TODAY. I RE-ORDERED VANCO LEVEL FOR TOMORROW BEFORE THE 2PM DOSE. Monitoring plan: Daily serum creatinine (VANCO TROUGH ORDERED FOR 08/11/22 @1630. DOSES HAVE BEEN GIVEN EARLY BY ABOUT 45 MIN. CULTURES PENDING. TAILOR ABX WHEN APPROPRIATE.)
[2022-08-13] MEDS ORDERED: ZINC OXIDE 20% OINT 30 GM TUBE TOP PRN (18:12)
[2022-08-13] MEDS ORDERED: GADOBUTROL 15 MMOL/15 ML VIAL ONE (18:57)
[2022-08-13] MEDS ORDERED: GADOBUTROL 15 MMOL/15 ML VIAL IVP ONE (19:30)
--- NOTE | 2022-08-13 22:41 | MRI Report ---
PROCEDURE: FOOT W/WO - LT INDICATIONS: L foot cellulitis with abscess, Diabetic CONTRAST: gadavist 15ml TECHNIQUE: Noncontrast sagittal T1 spin echo and T2 fast spin echo with fat saturation, long-axis T1 spin echo a nd T2 fast spin echo with fat saturation; short-axis T1 spin echo, proton density fast spin echo, and T2 fast spin echo with fat saturation through the forefoot. Post-contrast short axis, long axis, an d sagittal T1 spin echo with fat saturation through the forefoot. COMPARISON: Foot x-ray 08/09/2022. FINDINGS: Image quality: There is mild motion artifact. Bones and joints: There is abnormal bone marrow edema and enhancement involving the fifth metatarsal shaft and head as well as the fifth proximal phalanx. There is associated periosteal thickening and enhancement along the fifth metatarsal. There is suspected mild cortical erosion within the metatarsa l head. The findings are consistent with osteomyelitis. No definite fracture or dislocation. There is mild degeneration at the first interphalangeal joint. Mild midfoot degeneration is also present. Soft tissues: There is a soft tissue ulcer along the lateral dorsal aspect of the forefoot at the le toya of the fifth metatarsal shaft contiguous with a subjacent lobulated peripherally enhancing hetero geneous collection in the dorsal soft tissues consistent with extensive abscess and phlegmon. This me asures up to approximately 7.8 x 2.1 x 6.2 cm. This also extends lateral and plantar to the fifth met atarsal with suspected phlegmon tracking along the plantar aspects of the fifth metatarsal and proxim al phalanx. There is extensive soft tissue edema and enhancement demonstrated throughout the foot with a dorsal p redominance with associated skin thickening and enhancement consistent with cellulitis. There is alana a and enhancement of the interosseous muscles compatible with a myositis. Edema is also demonstrated within the plantar musculature with minimal enhancement which may represent muscle strains or myositi s. The flexor and extensor tendons appear intact within the forefoot. Lisfranc ligament appears intac t. There is a small joint effusion at the fifth metatarsophalangeal joint. A septic arthritis cannot be excluded. IMPRESSION: 1. Abnormal edema and enhancement of the fifth metatarsal and fifth proximal phalanx consistent with osteomyelitis. Small joint effusion at the fifth metatarsal plantar joint raises the possibility of s eptic arthritis. 2. Soft tissue ulcer in the dorsal lateral aspect of the foot contiguous with extensive confluent abs cess and phlegmon in the dorsal aspect of the forefoot tracking lateral and plantar to the fifth meta tarsal. 3. Edema and enhancement of the interosseous muscles consistent with a myositis. 4. Edema in the plantar musculature with minimal enhancement may also reflect a myositis versus muscl e strains or denervation changes. Reviewed by: Mane Loving MD on 08/13/2022 10:39 PM PST Approved by: Mane Loving MD on 08/13/2022 10:39 PM PST Station ID: [id number]
[2022-08-13] MEDS: ACETAMINOPHEN 325 MG TABLET PO PRN (23:35)
[2022-08-14] MEDS: VANCOMYCIN INJ 1 GM, VANCOMYCIN INJ 250 MG in SODIUM CHLORIDE 0.9% 250 ML IV SCH ×2 (02:00→14:14)
[2022-08-14] MEDS: PIPERACILLIN/TAZOBACTAM 3.375 GM in SODIUM CHLORIDE 0.9% MINIBAG 100 ML IV SCH ×3 (05:36→21:11)
[2022-08-14] MEDS: PANTOPRAZOLE 40 MG TABLET PO SCH (05:52)
[2022-08-14 06:18] LABS: BASOPHILS % (AUTO) 0.3 %; EOSINOPHILS # (AUTO) 0.2 10^3/uL (0.0-0.7); EOSINOPHILS % (AUTO) 1.6 %; HCT - HEMATOCRIT 30.4 % (42.0-52.0); HGB - HEMOGLOBIN 9.2 g/dL (14.0-18.0); LYMPHOCYTES # (AUTO) 1.5 10^3/uL (1.5-3.5); LYMPHOCYTES % (AUTO) 15.7 %; MEAN CORPUSCULAR HEMOGLOBIN 25.8 pg (27.0-31.0); MEAN CORPUSCULAR HGB CONC 30.3 g/dL (32.0-36.0); MEAN CORPUSCULAR VOLUME 85.2 fL (80.0-94.0); MEAN PLATELET VOLUME 9.8 fL (7.4-11.4); MONOCYTES # (AUTO) 0.9 10^3/uL (0.0-1.0); MONOCYTES % (AUTO) 10.1 %; NEUTROPHILS # (AUTO) 6.7 10^3/uL (1.5-6.6); NEUTROPHILS % (AUTO) 71.9 %; PLT - PLATELET COUNT 431 10^3/uL (130-450); RED BLOOD COUNT 3.57 10^6/uL (4.70-6.10); RED CELL DISTRIBUTION WIDTH 14.4 % (12.0-15.0); WHITE BLOOD COUNT 9.3 x10^3/uL (4.8-10.8)
[2022-08-14 06:50] LABS: CALCIUM 7.4 mg/dL (8.5-10.3); CREATININE 1.1 mg/dL (0.6-1.2); CRP - C-REACTIVE PROTEIN 19.4 mg/dL (0-1.0); POTASSIUM 3.9 mmol/L (3.5-5.0)
[2022-08-14] MEDS: SODIUM CHLORIDE 0.9% 1,000 ML IV SCH ×2 (08:32→18:46)
[2022-08-14] MEDS: DOCUSATE SODIUM 250 MG CAPSULE PO SCH (08:34)
[2022-08-14] MEDS: SENNA 8.6 MG TABLET PO SCH (08:34)
[2022-08-14] MEDS: polyethylene glycoL 3350 17 GM PACKET PO SCH (08:34)
[2022-08-14] MEDS: LOSARTAN 50 MG TABLET PO SCH ×2 (08:34→21:02)
[2022-08-14] MEDS: METOPROLOL TARTRATE 25 MG TABLET PO SCH ×2 (08:35→21:01)
[2022-08-14] MEDS: guaiFENesin 600 MG TABLET PO SCH ×2 (08:37→21:02)
[2022-08-14] MEDS: POTASSIUM CHLORIDE 20 MEQ TABLET PO SCH (08:37)
[2022-08-14] MEDS: INSULIN LISPRO 300 UNIT/3 ML PEN SUBQ SCH ×7 (08:38→21:02)
[2022-08-14] MEDS: INSULIN 70/30 HUMAN 300 UNIT/3 ML VIAL SUBQ SCH (08:40)
[2022-08-14] MEDS: SODIUM CHLORIDE FLUSH 0.9% 10 ML SYRINGE IVP SCH ×2 (10:22→15:50)
[2022-08-14] MEDS: HYDROcod/ACETAM 10 MG/325 MG TABLET PO PRN (13:38)
[2022-08-14 14:08] LABS: VANCOMYCIN,TROUGH 16.6 ug/mL (10.0-20.0)
--- NOTE | 2022-08-14 15:31 | CONSULTATION NOTE ---
Referring Provider Name of Referring Provider:: [facility], wound care Consult Date: 08/14/22 Chief Complaint - Chief Complaint Chief Complaint: Left foot wound problems, chronic but worse recently History of Present Illness - History Obtained From Records Reviewed: Yes History obtained from: Patient and family, physicians - History of Present Illness HPI Comment/Other: This is a 41-year-old gentleman who apparently lives in both [place] with family and brother but also [place]. He has seen a clerical administrator in the past. His current problem to his left foot started about 8 months ago with 1/5 metatarsal head plantar callus which began came in ulcer. This persisted and about 4 months ago he had to go back to [place] for visa issues but when he recently returned in the past week or so had obvious signs of infection which brought him to the hospital where he has been admitted and treated with broad-spectrum antibiotics. He is poorly compliant diabetic, unclear whether he has been taking his medications or following any diabetic diet. He has a family history of diabetes and obesity. He did have some history of fever but this has resolved. He notes swelling to his foot and lower leg in addition to ulcers about his left foot, particularly near the fifth toe. History - Past Medical History Cardiovascular: reports: Hypertension Neuro: reports: None Endocrine/Autoimmune: reports: Type 2 diabetes GI: reports: Other : reports: None Psych: reports: None Musculoskeletal: reports: None MRSA Hx?: No Other Past Medical History: macular degeneration?, colitis, sciatica - POLST Patient has POLST: No Meds/Allgy - Home Medications Home Medications: Ambulatory Orders Medication Instructions Recorded Confirmed Insulin 70/30 Human [NovoLIN] 50 units SUBQ DAILY 08/09/22 08/09/22 Losartan [Cozaar] 50 mg PO BID 08/09/22 08/09/22 Omeprazole 40 mg PO DAILY 08/09/22 08/09/22 hydroCHLOROthiazide [Hydrodiuril] 25 mg PO DAILY 08/10/22 08/10/22 metFORMIN [Glucophage] 850 mg PO TIDWM 08/10/22 08/10/22 - Allergies Allergies/Adverse Reactions: Allergies Allergy/AdvReac Type Severity Reaction Status Date / Time No Known Drug Allergies Allergy Verified 08/12/22 08:50 Exam - Vital Signs Vital Signs: Vital Signs x48h Temp Pulse Resp BP BP Pulse Ox 08/14/22 08:35 113/59 L 08/14/22 08:00 36.9 C 80 18 113/59 L 98 - Physical Exam General Appearance: positive: Other (Morbidly obese) Respiratory: positive: No respiratory distress Neurologic/Psychiatric: positive: Oriented x3 Comments/Other: He is pleasant, alert, brother at bedside with him who is very fluent bilingual, French and Uzbek. The patient is not in any acute distress. There is pretibial edema to his lower leg between knee and ankle and pretibial edema to left foot. Lines have been drawn on his skin to suggest that the erythema in the same area has markedly resolved. He does have at least 2 full-thickness ulcers to his left foot. 1 ulcer is over the fifth metatarsal head and an area of diffuse callosity and this communicates to the fascial layer but not directly to bone the second ulcer is full-thickness, at least 2 cm and communicates directly with fifth metatarsal head/shaft. The wounds were thoroughly probed with a dermal curette. No pockets of pus was encountered. Wound edges and periosteum easily bleed and have good vascularity to stimulation. He has poor sensation to foot. The toes do not show any deformity. The fifth toe is viable and the entire foot is viable at the present time there is a third skin lesion that appears to be developing measuring about a centimeter with some superficial necrosis but no purulence. His foot is warm, no acute ischemia is present to the foot or toes. Conclusion and Plan - Lab Results Laboratory Results 08/14/22 13:55: Last Dose Date 08/14/2022, Last Dose Time 0336, Vancomycin Trough 16.6 08/14/22 11:47: POC Whole Bld Glucose 235 H 08/14/22 07:44: POC Whole Bld Glucose 173 H 08/14/22 05:53: Sodium 138, Potassium 3.9, Chloride 108, Carbon Dioxide 22, Anion Gap 8.0, BUN 17, Creatinine 1.1, Estimated GFR (MDRD) 75 L, Glucose 178 H, Calcium 7.4 L, C-Reactive Protein 19.4 H 08/14/22 05:53: WBC 9.3, RBC 3.57 L, Hgb 9.2 L, Hct 30.4 L, MCV 85.2, MCH 25.8 L, MCHC 30.3 L, RDW 14.4, Plt Count 431, MPV 9.8, Neut # (Auto) 6.7 H, Lymph # (Auto) 1.5, [place] # (Auto) 0.9, Eos # (Auto) 0.2, Baso # (Auto) 0.0, Absolute Nucleated RBC 0.00, Nucleated RBC % 0.0 08/13/22 20:42: POC Whole Bld Glucose 234 H 08/13/22 16:39: POC Whole Bld Glucose 183 H 08/13/22 11:12: POC Whole Bld Glucose 178 H 08/13/22 07:33: Sodium 132 L, Potassium 3.8, Chloride 102, Carbon Dioxide 17 L, Anion Gap 13.0, BUN 20, Creatinine 0.9, Estimated GFR (MDRD) 94, Glucose 174 H, Calcium 7.4 L, C-Reactive Protein 22.3 H 08/13/22 07:33: WBC 10.3, RBC 3.86 L, Hgb 10.0 L, Hct 31.8 L, MCV 82.4, MCH 25.9 L, MCHC 31.4 L, RDW 14.6, Plt Count 423, MPV 9.8, Neut # (Auto) 8.0 H, Lymph # (Auto) 1.2 L, [place] # (Auto) 0.9, Eos # (Auto) 0.1, Baso # (Auto) 0.0, Absolute Nucleated RBC 0.00, Nucleated RBC % 0.0 08/13/22 07:15: POC Whole Bld Glucose 153 H 08/12/22 20:54: POC Whole Bld Glucose 207 H 08/12/22 16:28: POC Whole Bld Glucose 141 H - Diagnostic Imaging Results Diagnostic Imaging Results: positive: Read independently - Diagnosis Diagnosis: Cellulitis, early osteomyelitis fifth metatarsal and septic metatarsal phalangeal joint; Poorly controlled diabetes mellitus, neuropathy, morbid obesity - Consultation Note Consultation Note: I discussed the case with Dr. Juan Wren, wound care. The patient has been on broad-spectrum antibiotics in the form of Zosyn and vancomycin. I suspect this is a streptococcal, anaerobe infection that is probably not staph resistant. Cultures have been obtained by her wound care physician. Pending cultures, I probably would discontinue the vancomycin if there is not staph resistant bacteria. The soft tissues have not fully demarcated. It appears that the cellulitis is improving with decreasing white blood cell count. The foot radiographs do not show any major abnormality but with the examination and MRI scan I suspect early osteomyelitis and possible septic arthritis. The majority of his problem is a soft tissue infection, cellulitis. Once the cellulitis has resolved, further surgical intervention may be required. - Plan Plan: I would continue with local wound care discussed this with our wound care physician. I suspect the vancomycin could be discontinued. Once the cellulitis and soft tissue infection have improved, treatment of the ulcer could be addressed. This may require Local wound care,wound VAC, total contact cast. If he worsens, amputation may be indicated. The soft tissues will dictate amputation level but hopefully no more than 5th metatarsal ray amputation would be needed
[2022-08-14] MEDS ORDERED: INSULIN 70/30 HUMAN 300 UNIT/3 ML VIAL SUBQ SCH (17:00)
--- NOTE | 2022-08-14 18:23 | PROVIDER PROGRESS NOTE ---
Assessment/Plan - Problem List (1) Diabetic foot infection Assessment/Plan: All labs and his VS were reviewed. No fever since 08/10 and WBC has improved since antibx were started (21>> 14>> 11>> 10>> 9 today) Blood cultures are negative to date. No wound cultures were sent initially. Yesterday 08/13, Dr. Wren the wound sap solution manager consultant, did debridement and sent wound cultures from that. That culture is growing beta-hemolytic group B Strep (usually pansensitive) and also a second gram-negative bacteria that is not yet identified. PT had evaluated him and advised no-weight bearing, and to use crutches or a walker An MRI was done overnight. This showed there are still areas that are suspicious for soft tissue abscess, areas consistent with cellulitis, and also septic arthritis and early osteomyelitis. Today I spoke to Dr. Wren about these findings. An Orthopedic consult was recommended. Orthopedist Dr. Peterson then saw the pt in consult today, and agreed that he has cellulitis, with borders not yet defined, has septic arthritis and early osteo. Plan: Dressing changes as per Ortho and Wound clinic providers Await final wound cx results, to identify the gram neg bacteria that is growing. Empiric Zosyn to continue, it covers Strep and all gram negs Will stop the Vanco, since the Strep is not a resistant bug. Continue no weight bearing with the L foot Follow WBC daily Appreciate recommendations from Wound service and from Ortho. (2) Cellulitis of left foot Plan: As in #1 Once the cellulitis has resolved, further surgical intervention (of the ulcer or the bone) may be required. (3) Septic arthritis As in #1 (4) Osteomyelitis Plan: As in #1 He was told today by me (and brother at bedside Wai badillo), that he may need a future amputation. (5) Type 2 diabetes mellitus, uncontrolled, with hyperglycemia, with complications of diabetic foot infection, on long-term insulin He feels no pain in the area with the cellulitis or the osteomyelitis. There was no lidocaine injections used when Dr. Wren did the debridement yesterday 08/13, he said. His A1c came back at 12, but he has had this foot infection for several mos. He took 50 units twice a day before admission. We have him on 10 units at night and 30 units in the morning. All labs were reviewedHis glu levels are spiking at mid-day Plan: We will continue his 30 U of 70/30 Insulin in the morning, but increase his nighttime 70/30 Insulin to 15 U Continue to encourage him to eat (a lower) 2000 dirk a day. I discussed with pt today (and brother Wai at bedside interpreted) that he needs to be more serious about his DM control and aim for an A1c of less than 7% after the infection clears. (6) Diabetic neuropathy There was no lidocaine injections used when Dr. Wren did the debridement yesterday 08/13, he said. Presumably, since he has no pain, he forgets to practice no weightbearing on that L foot when he ambulates to the bathroom Plan: We will give reminders regarding weightbearing No pain medications or neuropathy medications are indicated at this time (7) Difficulty swallowing solids Assessment/Plan: Improved Pt was c/o swallowing food and feeling as if it's stuck in his upper esophagus. Pt apparently has this problem at home and takes Reglan for it. Pt specifically requested Reglan. Telemedicine night doctor ordered Reglan prn several nights ago. Given this information, he likely has diabetic gastroparesis and poor GI motility. Plan: Will continue the order for prn Reglan No indication for an EGD at this time and we have no flouroscopy at this hospital to do a swallowing study (8) Morbid obesity BMI 50-59.9 As per Hx, his BMI is 51.6 today. This complicates his care. (9) Hypokalemia. Plan: Supplement with oral potassium when K low, and follow BMP daily - Current Meds Current Meds: Current Medications Generic Name Dose Route Start Last Admin Trade Name Victor M PRN Reason Stop Dose Admin Acetaminophen 650 mg 08/09/22 21:56 08/13/22 23:35 Acetaminophen 325 Mg Tablet PO 650 mg Q4HR PRN Administration Pain 1 to 4, or Fever Hydrocodone Bitart/Acetaminophen 1 tab 08/09/22 21:56 08/14/22 13:38 Hydrocod/Acetam 10 Mg/325 Mg Tablet PO 1 tab Q4HR PRN Administration Pain 8 to 10 Hydrocodone Bitart/Acetaminophen 1 tab 08/09/22 21:56 08/13/22 18:45 Hydrocod/Acetam 5/325 Mg Tablet PO 1 tab Q4HR PRN Administration Pain 5 to 7 Carboxymethylcellulose 1 drops 08/10/22 01:01 08/12/22 14:33 Carboxymethylcellulose Ophth Drops EACHEYE 1 drops PRN PRN Administration Dry Eye Docusate Sodium 250 - 500 mg 08/10/22 21:00 08/14/22 08:34 Docusate Sodium 250 Mg Capsule PO 250 mg DAILY ADRI Administration Guaifenesin 600 mg 08/10/22 21:00 08/14/22 08:37 Guaifenesin 600 Mg Tablet PO 600 mg BID ADRI Administration Sodium Chloride 1,000 mls @ 100 mls/hr 08/09/22 22:00 08/14/22 08:32 Normal Saline 0.9% IV 100 mls/hr .Q10H ADRI Administration Piperacillin Sod/Tazobactam 100 mls @ 25 mls/hr 08/09/22 22:00 08/14/22 17:38 Sod 3.375 gm/ Sodium Chloride IV Infused Q8HR ADRI Infusion Vancomycin HCl 1 gm/ 265 mls @ 166.667 mls/hr 08/12/22 14:00 08/14/22 15:50 Vancomycin HCl 250 mg/ Sodium IV Infused Chloride Q12H ADRI Infusion Insulin Human Isoph/Insulin Regular 30 unit 08/11/22 09:00 08/14/22 08:40 Insulin 70/30 Human 300 Unit/3 Ml Vial SUBQ 30 unit DAILY ADRI Administration Insulin Human Isoph/Insulin Regular 15 unit 08/14/22 17:00 08/14/22 16:54 Insulin 70/30 Human 300 Unit/3 Ml Vial SUBQ 15 unit 1700 ADRI Administration Insulin Human Lispro 5 unit 08/10/22 08:00 08/14/22 08:38 Insulin Lispro 300 Unit/3 Ml Pen SUBQ 5 unit QDBREAKFAST [facility] Administration Protocol Insulin Human Lispro 5 unit 08/10/22 12:00 08/14/22 12:10 Insulin Lispro 300 Unit/3 Ml Pen SUBQ 5 unit QDLUNCH [facility] Administration Protocol Insulin Human Lispro 5 unit 08/10/22 17:00 08/14/22 16:53 Insulin Lispro 300 Unit/3 Ml Pen SUBQ 5 unit QDDINNER [facility] Administration Protocol Insulin Human Lispro 2 - 10 unit 08/14/22 17:00 08/14/22 16:53 Insulin Lispro 300 Unit/3 Ml Pen SUBQ 4 unit 0800,1200,1700,2100 ADRI Administration Protocol Losartan Potassium 50 mg 08/10/22 09:00 08/14/22 08:34 Losartan 50 Mg Tablet PO 50 mg BID ADRI Administration Metoclopramide HCl 5 mg 08/11/22 22:37 08/11/22 23:00 Metoclopramide 10 Mg/2 Ml Vial IVP 5 mg Q6HR PRN Administration NEEDED PER PROVIDER ORDERS Metoprolol Tartrate 25 mg 08/10/22 09:00 08/14/22 08:35 Metoprolol Tartrate 25 Mg Tablet PO 25 mg BID ADRI Administration Multi-Ingredient Ointment 1 applic 08/13/22 18:12 08/13/22 18:46 Zinc Oxide 20% Oint 30 Gm Tube TOP 1 applic PRN PRN Administration Skin Care Pantoprazole Sodium 40 mg 08/10/22 07:00 08/14/22 05:52 Pantoprazole 40 Mg Tablet PO 40 mg QDAC ADRI Administration Polyethylene Glycol 17 gm 08/11/22 09:00 08/14/22 08:34 Polyethylene Glycol 3350 17 Gm Packet PO 17 gm DAILY ADRI Administration Potassium Chloride 20 meq 08/12/22 08:00 08/14/22 08:37 Potassium Chloride 20 Meq Tablet PO 20 meq DAILYWM ADRI Administration Senna 8.6 - 17.2 mg 08/14/22 09:00 08/14/22 08:34 Senna 8.6 Mg Tablet PO 8.6 mg DAILY ADRI Administration Sodium Chloride 10 ml 08/10/22 01:00 08/14/22 15:50 Sodium Chloride Flush 0.9% 10 Ml Syringe IVP Not Given 0100,0900,1700 [facility] - Lab Result Fish Bone Diagrams: 08/14/22 05:53 08/14/22 05:53 - Additional Planning My Orders: My Active Orders 08/13/22 18:12 Zinc Oxide 20% Oint [Zinc Oxide] 1 applic TOP PRN PRN 08/14/22 Consult [Orthopedics Consult] [CONS] Routine 08/14/22 09:00 Senna [Senokot] 8.6 - 17.2 mg PO DAILY 08/14/22 17:00 Insulin 70/30 Human [Humulin 70-30 Vial] 15 unit SUBQ 1700 Insulin Lispro [Humalog Kwikpen U-100] 2 - 10 unit SUBQ 0800,1200,1700,2100 Subjective - Subjective Patient Reports: Pain (Worse pain and "tightness" of the L calf and wyatt today.) Objective Vital Signs: Vital Signs - 24 hr 08/13/22 08/14/22 08/14/22 23:28 08:00 08:35 Temperature 37.1 C 36.9 C Heart Rate [ 88 80 Brachial] Respiratory 18 18 Rate Blood Pressure 113/59 L Blood Pressure 101/54 L 113/59 L [Right Brachial artery] O2 Saturation 96 98 08/14/22 16:12 Temperature 36.8 C Heart Rate [ 86 Brachial] Respiratory 18 Rate Blood Pressure Blood Pressure 136/72 H [Right Brachial artery] O2 Saturation 99 Oxygen O2 Source Room air I&O (Last 24 Hrs): Intake and Output Totals x24h 08/12/22 08/13/22 08/14/22 23:59 23:59 23:59 Intake Total 4585 4541.666 3476.25 Output Total 300 1125 Balance 4585 4241.666 2351.25 General: Alert, Oriented x3, No acute distress HEENT: Atraumatic, Mucous membr. moist/pink Neck: Supple, No JVD Neuro: Alert, Other (No foot sensation) Cardiovascular: Regular rate, No murmurs Respiratory: No respiratory distress, Breath sounds nml Abdomen: Normal bowel sounds, Soft, Other (Obese with a pannus) Extremities: Other (L leg below knee is darker and has tense edema, no tende rness. L foot and toes are bandaged.) - Results Results: Laboratory Results WBC 9.3 x10^3/uL (4.8-10.8) 08/14/22 05:53 RBC 3.57 10^6/uL (4.70-6.10) L 08/14/22 05:53 Hgb 9.2 g/dL (14.0-18.0) L 08/14/22 05:53 Hct 30.4 % (42.0-52.0) L 08/14/22 05:53 MCV 85.2 fL (80.0-94.0) 08/14/22 05:53 MCH 25.8 pg (27.0-31.0) L 08/14/22 05:53 MCHC 30.3 g/dL (32.0-36.0) L 08/14/22 05:53 RDW 14.4 % (12.0-15.0) 08/14/22 05:53 Plt Count 431 10^3/uL (130-450) 08/14/22 05:53 MPV 9.8 fL (7.4-11.4) 08/14/22 05:53 Neut # (Auto) 6.7 10^3/uL (1.5-6.6) H 08/14/22 05:53 Lymph # (Auto) 1.5 10^3/uL (1.5-3.5) 08/14/22 05:53 [place] # (Auto) 0.9 10^3/uL (0.0-1.0) 08/14/22 05:53 Eos # (Auto) 0.2 10^3/uL (0.0-0.7) 08/14/22 05:53 Baso # (Auto) 0.0 10^3/uL (0.0-0.1) 08/14/22 05:53 Absolute Nucleated RBC 0.00 x10^3/uL 08/14/22 05:53 Total Counted 100 08/09/22 19:59 Band Neuts % (Manual) 2 % (0-10) 08/09/22 19:59 Abnorm Lymph % (Manual) 0 % 08/09/22 19:59 Nucleated RBC % 0.0 /100WBC 08/14/22 05:53 Neutrophils # (Manual) 18.7 10^3/uL (1.5-6.6) H 08/09/22 19:59 Lymphocytes # (Manual) 1.3 10^3/uL (1.5-3.5) L 08/09/22 19:59 Monocytes # (Manual) 1.3 10^3/uL (0.0-1.0) H 08/09/22 19:59 Eosinophils # (Manual) 0.0 10^3/uL (0-0.7) 08/09/22 19:59 Basophils # (Manual) 0.0 10^3/uL (0-0.1) 08/09/22 19:59 Differential Comment MANUAL DIFFERENTIAL 08/09/22 19:59 WBC Morphology 2+ TOXIC GRANULATION (NORMAL) 08/09/22 19:59 Platelet Estimate NORMAL (130-450,000) (NORMAL) 08/09/22 19:59 Platelet Morphology NORMAL APPEARANCE (NORMAL) 08/09/22 19:59 RBC Morph Micro Appear NORMAL APPEARANCE (NORMAL) 08/09/22 19:59 ESR 64 mm/Hr (0-15) H 08/09/22 19:59 Sodium 138 mmol/L (135-145) 08/14/22 05:53 Potassium 3.9 mmol/L (3.5-5.0) 08/14/22 05:53 Chloride 108 mmol/L (101-111) 08/14/22 05:53 Carbon Dioxide 22 mmol/L (21-32) 08/14/22 05:53 Anion Gap 8.0 (6-13) 08/14/22 05:53 BUN 17 mg/dL (6-20) 08/14/22 05:53 Creatinine 1.1 mg/dL (0.6-1.2) 08/14/22 05:53 Estimated GFR (MDRD) 75 (>89) L 08/14/22 05:53 Glucose 178 mg/dL (70-100) H 08/14/22 05:53 POC Whole Bld Glucose 221 mg/dL (70 - 100) H 08/14/22 16:45 Estimat Average Glucose 298 mg/dL (70-100) H 08/10/22 06:26 Hemoglobin A1c % 12.0 % (4.27-6.07) H 08/10/22 06:26 Lactic Acid 1.4 mmol/L (0.5-2.2) 08/09/22 21:46 Calcium 7.4 mg/dL (8.5-10.3) L 08/14/22 05:53 Total Bilirubin 1.4 mg/dL (0.2-1.0) H 08/10/22 06:26 AST 22 IU/L (10-42) 08/10/22 06:26 ALT 21 IU/L (10-60) 08/10/22 06:26 Alkaline Phosphatase 113 IU/L (42-121) 08/10/22 06:26 C-Reactive Protein 19.4 mg/dL (0-1.0) H 08/14/22 05:53 Total Protein 6.6 g/dL (6.7-8.2) L 08/10/22 06:26 Albumin 2.7 g/dL (3.2-5.5) L 08/10/22 06:26 Globulin 3.9 g/dL (2.1-4.2) 08/10/22 06:26 Albumin/Globulin Ratio 0.7 (1.0-2.2) L 08/10/22 06:26 Triglycerides 136 mg/dL (-149) 08/10/22 06:26 Cholesterol 153 mg/dL (-199) 08/10/22 06:26 LDL Cholesterol, Calc 97 mg/dL (-129) 08/10/22 06:26 VLDL Cholesterol 27 mg/dL 08/10/22 06:26 HDL Cholesterol 29 mg/dL (60-) L 08/10/22 06:26 LDL/HDL Ratio 3.3 (<3.6) 08/10/22 06:26 Cholesterol/HDL Ratio 5.3 (<5.0) 08/10/22 06:26 Lipase 23 U/L (22-51) 08/09/22 19:59 Procalcitonin 0.84 ng/mL (<0.5) H 08/09/22 21:46 TSH 0.84 uIU/mL (0.34-5.60) 08/10/22 06:26 Urine Color DARK YELLOW 08/09/22 20:27 Urine Clarity CLEAR (CLEAR) 08/09/22 20: Urine pH 5.5 PH (5.0-7.5) 08/09/22 20:27 Ur Specific [place] 1.015 (1.002-1.030) 08/09/22 20:27 Urine Protein NEGATIVE mg/dL (NEGATIVE) 08/09/22 20:27 Urine Glucose (UA) >=1000 mg/dL (NEGATIVE) H 08/09/22 20:27 Urine Ketones TRACE mg/dL (NEGATIVE) 08/09/22 20:27 Urine Occult Blood TRACE-INTA (NEGATIVE) 08/09/22 20:27 Urine Nitrite NEGATIVE (NEGATIVE) 08/09/22 20:27 Urine Bilirubin SMALL (NEGATIVE) H 08/09/22 20:27 Urine Urobilinogen 2 E.U./dL (NORMAL) H 08/09/22 20:27 Ur Leukocyte Esterase NEGATIVE (NEGATIVE) 08/09/22 20:27 Ur Microscopic Review NOT INDICATED 08/09/22 20:27 Urine Culture Comments NOT INDICATED 08/09/22 20:27 Nasal Adenovirus (PCR) NOT DETECTED 08/09/22 20:27 Nasal B. parapertussis DNA (PCR) NOT DETECTED 08/09/22 20:27 Nasal Coronavir 229E PCR NOT DETECTED 08/09/22 20:27 Nasal Coronavir HKU1 PCR NOT DETECTED 08/09/22 20:27 Nasal Coronavir NL63 PCR NOT DETECTED 08/09/22 20:27 Nasal Coronavir OC43 PCR NOT DETECTED 08/09/22 20:27 Nasal Enterovir/Rhinovir PCR NOT DETECTED 08/09/22 20:27 Nasal Influenza B PCR NOT DETECTED 08/09/22 20:27 Nasal Influenza A PCR NOT DETECTED 08/09/22 20:27 Nasal Parainfluen 1 PCR NOT DETECTED 08/09/22 20:27 Nasal Parainfluen 2 PCR NOT DETECTED 08/09/22 20:27 Nasal Parainfluen 3 PCR NOT DETECTED 08/09/22 20:27 Nasal Parainfluen 4 PCR NOT DETECTED 08/09/22 20:27 Nasal RSV (PCR) NOT DETECTED 08/09/22 20:27 Nasal B.pertussis DNA PCR NOT DETECTED 08/09/22 20:27 Nasal C.pneumoniae (PCR) NOT DETECTED 08/09/22 20:27 Yannick Human Metapneumo PCR NOT DETECTED 08/09/22 20:27 Nasal M.pneumoniae (PCR) NOT DETECTED 08/09/22 20:27 Nasal SARS-CoV-2 (PCR) NOT DETECTED 08/09/22 20:27 Last Dose Date 08/14/2022 08/14/22 13:55 Last Dose Time 03308/14/22 13:55 Vancomycin Trough 16.6 ug/mL (10.0-20.0) 08/14/22 13:55 Sepsis Event Note (H) - Evaluation Current Stage of Sepsis: Ruled out
[2022-08-15] MEDS: SODIUM CHLORIDE FLUSH 0.9% 10 ML SYRINGE IVP SCH ×3 (01:00→17:36)
[2022-08-15 04:41] LABS: BASOPHILS % (AUTO) 0.3 %; EOSINOPHILS # (AUTO) 0.1 10^3/uL (0.0-0.7); EOSINOPHILS % (AUTO) 1.4 %; HCT - HEMATOCRIT 31.9 % (42.0-52.0); HGB - HEMOGLOBIN 9.7 g/dL (14.0-18.0); LYMPHOCYTES # (AUTO) 1.3 10^3/uL (1.5-3.5); LYMPHOCYTES % (AUTO) 13.3 %; MEAN CORPUSCULAR HEMOGLOBIN 25.9 pg (27.0-31.0); MEAN CORPUSCULAR HGB CONC 30.4 g/dL (32.0-36.0); MEAN CORPUSCULAR VOLUME 85.3 fL (80.0-94.0); MEAN PLATELET VOLUME 9.8 fL (7.4-11.4); MONOCYTES # (AUTO) 0.8 10^3/uL (0.0-1.0); NEUTROPHILS # (AUTO) 7.5 10^3/uL (1.5-6.6); NEUTROPHILS % (AUTO) 76.3 %; PLT - PLATELET COUNT 510 10^3/uL (130-450); RED BLOOD COUNT 3.74 10^6/uL (4.70-6.10); RED CELL DISTRIBUTION WIDTH 14.6 % (12.0-15.0); WHITE BLOOD COUNT 9.8 x10^3/uL (4.8-10.8)
[2022-08-15 04:44] LABS: CALCIUM 7.4 mg/dL (8.5-10.3); POTASSIUM 4.2 mmol/L (3.5-5.0)
[2022-08-15] MEDS: SODIUM CHLORIDE 0.9% 1,000 ML IV SCH (05:28)
[2022-08-15] MEDS: PANTOPRAZOLE 40 MG TABLET PO SCH (06:41)
[2022-08-15] MEDS: PIPERACILLIN/TAZOBACTAM 3.375 GM in SODIUM CHLORIDE 0.9% MINIBAG 100 ML IV SCH (06:42)
[2022-08-15] MEDS: HYDROcod/ACETAM 10 MG/325 MG TABLET PO PRN ×2 (06:42→14:40)
[2022-08-15] MEDS: polyethylene glycoL 3350 17 GM PACKET PO SCH (09:26)
[2022-08-15] MEDS: LOSARTAN 50 MG TABLET PO SCH ×2 (09:27→20:55)
[2022-08-15] MEDS: METOPROLOL TARTRATE 25 MG TABLET PO SCH ×2 (09:27→20:55)
[2022-08-15] MEDS: DOCUSATE SODIUM 250 MG CAPSULE PO SCH (09:28)
[2022-08-15] MEDS: MULTIVITAMIN W/MINERALS TABLET PO SCH (09:28)
[2022-08-15] MEDS: guaiFENesin 600 MG TABLET PO SCH ×2 (09:28→20:57)
[2022-08-15] MEDS: POTASSIUM CHLORIDE 20 MEQ TABLET PO SCH (09:28)
[2022-08-15] MEDS: INSULIN LISPRO 300 UNIT/3 ML PEN SUBQ SCH ×7 (09:28→20:54)
[2022-08-15] MEDS: INSULIN 70/30 HUMAN 300 UNIT/3 ML VIAL SUBQ SCH (09:29)
[2022-08-15] MEDS: SENNA 8.6 MG TABLET PO SCH (09:30)
[2022-08-15] MEDS: cefTRIAXone 2 GM in SODIUM CHLORIDE 0.9% MINIBAG 100 ML IV SCH (12:36)
--- NOTE | 2022-08-15 13:02 | PROVIDER PROGRESS NOTE ---
Assessment/Plan - Problem List (1) Diabetic foot infection Assessment/Plan: All labs and his VS were reviewed. No fever since 08/10 and WBC has improved since antibx were started Blood cultures are negative to date. No wound cultures were sent initially. On 08/13, Dr. Wren the wound end user consultant, did debridement and sent wound cultures then. That culture is growing beta-hemolytic group B Strep (usually pansensitive) and also Klebsiella oxytoca. PT had evaluated him and advised no-weight bearing, and to use crutches or a walker The MRI showed areas suspicious for soft tissue abscess, areas consistent with cellulitis, and also septic arthritis and early osteomyelitis. An Orthopedic consult was done yesterday 08/14, and Dr Peterson agreed that he has cellulitis, with borders not yet defined, has septic arthritis and early osteo. Dr Peterson looked and the infection today and felt there is improvement. Plan: Continue the dressing changes as per Ortho and Wound clinic providers Empiric Zosyn will now be changed to Ceftriaxone 2g iv daily, to treat the B- hemolytic Strep and the Klebsiella Continue no weight bearing with the L foot Follow WBC daily Appreciate recommendations from Wound service and from Ortho. (2) Cellulitis of left foot Plan: As in #1 Once the cellulitis has resolved, further surgical intervention (of the ulcer or the bone) may be required, as per Ortho consult. (3) Septic arthritis As in #1 (4) Osteomyelitis Plan: As in #1 (5) Type 2 diabetes mellitus, uncontrolled, with hyperglycemia, with complications of diabetic foot infection, on long-term insulin He feels no pain in the area with the cellulitis or the osteomyelitis. There was no lidocaine injections used when Dr. Wren did the debridement 08/13. His A1c came back at 12, but he has had this foot infection for several mos. He did admit he followed no strict diet. He took 50 units of 70/30 Insulin BID before admission. We have him on 15 units at night and 40 units in the morning plus mealtime 5U of Reg Insulin All labs were reviewed. His glu levels are still spiking at >>200 at mid-day Plan: We will change him to 40 U of 70/30 Insulin in the morning, and increase his nighttime 70/30 Insulin to 20 U Will increase the mealtime Reg Insulin from 5U w/ meals to 8U w/ meals. Continue to encourage him to eat (a lower) 2000 dirk a day. On 08/14, I discussed with pt (and brother Wai at bedside interpreted) that he needs to be more serious about his DM control and aim for an A1c of less than 7%, after the inf ection clears. (6) Diabetic neuropathy There was no lidocaine injections used when Dr. Wren did the debridement yesterday 08/13, he said. Presumably, since he has no pain, he forgets to practice no weight bearing on that L foot when he ambulates to the bathroom Plan: We will give reminders regarding weightbearing No pain medications or neuropathy medications are indicated at this time (7) Difficulty swallowing solids Assessment/Plan: Improved Pt was c/o swallowing food and feeling as if it's stuck in his upper esophagus. Pt apparently has this problem at home and takes Reglan for it. Pt specifically requested Reglan. Telemedicine night doctor ordered Reglan prn several nights ago. Given this information, he likely has diabetic gastroparesis and poor GI motility. Plan: Will continue the order for prn Reglan No indication for an EGD at this time and we have no flouroscopy at this hospital to do a swallowing study (8) Morbid obesity BMI 50-59.9 As per Hx, his BMI is 51.6 today. This complicates his care. (9) Hypokalemia. Plan: Supplement with oral potassium when K low, and follow BMP daily - Current Meds Current Meds: Current Medications Generic Name Dose Route Start Last Admin Trade Name Freq PRN Reason Stop Dose Admin Acetaminophen 650 mg 08/09/22 21:56 08/13/22 23:35 Acetaminophen 325 Mg Tablet PO 650 mg Q4HR PRN Administration Pain 1 to 4, or Fever Hydrocodone Bitart/Acetaminophen 1 tab 08/09/22 21:56 08/15/22 06:42 Hydrocod/Acetam 10 Mg/325 Mg Tablet PO 1 tab Q4HR PRN Administration Pain 8 to 10 Hydrocodone Bitart/Acetaminophen 1 tab 08/09/22 21:56 08/13/22 18:45 Hydrocod/Acetam 5/325 Mg Tablet PO 1 tab Q4HR PRN Administration Pain 5 to 7 Carboxymethylcellulose 1 drops 08/10/22 01:01 08/12/22 14:33 Carboxymethylcellulose Ophth Drops EACHEYE 1 drops PRN PRN Administration Dry Eye Docusate Sodium 250 - 500 mg 08/10/22 21:00 08/15/22 09:28 Docusate Sodium 250 Mg Capsule PO Not Given DAILY ADRI Guaifenesin 600 mg 08/10/22 21:00 08/15/22 09:28 Guaifenesin 600 Mg Tablet PO 600 mg BID ADRI Administration Ceftriaxone Sodium 2 gm/ 100 mls @ 200 mls/hr 08/15/22 12:00 08/15/22 12:36 Sodium Chloride IV 200 mls/hr DAILY ADRI Administration Insulin Human Isoph/Insulin Regular 40 unit 08/15/22 09:00 08/15/22 09:29 Insulin 70/30 Human 300 Unit/3 Ml Vial SUBQ 40 unit DAILY ADRI Administration Losartan Potassium 50 mg 08/10/22 09:00 08/15/22 09:27 Losartan 50 Mg Tablet PO 50 mg BID ADRI Administration Metoclopramide HCl 5 mg 08/11/22 22:37 08/11/22 23:00 Metoclopramide 10 Mg/2 Ml Vial IVP 5 mg Q6HR PRN Administration NEEDED PER PROVIDER ORDERS Metoprolol Tartrate 25 mg 08/10/22 09:00 08/15/22 09:27 Metoprolol Tartrate 25 Mg Tablet PO 25 mg BID ADRI Administration Multi-Ingredient Ointment 1 applic 08/13/22 18:12 08/13/22 18:46 Zinc Oxide 20% Oint 30 Gm Tube TOP 1 applic PRN PRN Administration Skin Care Multivitamins/Minerals 1 tab 08/15/22 09:00 08/15/22 09:28 Multivitamin W/Minerals Tablet PO 1 tab DAILYWM ADRI Administration Pantoprazole Sodium 40 mg 08/10/22 07:00 08/15/22 06:41 Pantoprazole 40 Mg Tablet PO 40 mg QDAC ADRI Administration Polyethylene Glycol 17 gm 08/11/22 09:00 08/15/22 09:26 Polyethylene Glycol 3350 17 Gm Packet PO 17 gm DAILY ADRI Administration Senna 8.6 - 17.2 mg 08/14/22 09:00 08/15/22 09:30 Senna 8.6 Mg Tablet PO Not Given DAILY ADRI Sodium Chloride 10 ml 08/10/22 01:00 08/15/22 09:30 Sodium Chloride Flush 0.9% 10 Ml Syringe IVP Not Given 0100,0900,1700 ADRI - Lab Result Fish Bone Diagrams: 08/15/22 04:15 08/15/22 04:15 - Additional Planning My Orders: My Active Orders 08/14/22 18:43 Miscellaenous Nursing Order [RC] QSUTFT 08/15/22 09:00 Insulin 70/30 Human [Humulin 70-30 Vial] 40 unit SUBQ DAILY Multivitamin W/Minerals [Theragran M] 1 tab PO DAILYWM 08/15/22 10:28 [facility]ellaenous [facility] 08/15/22 12:00 cefTRIAXone [Rocephin] 2 gm Sodium Chloride 0.9% Minibag [Normal Saline 0.9% Minibag] 100 ml IV DAILY 08/15/22 12:24 Insulin Lispro [Humalog Kwikpen U-100] 3 - 11 unit SUBQ 0800,1200,1700,2100 08/15/22 12:50 Initiate Hypoglycemia Protocol [RC] .protocol 08/15/22 12:51 Insulin Lispro [Humalog Kwikpen U-100] 8 unit SUBQ TIDWM 08/15/22 17:00 Insulin 70/30 Human [Humulin 70-30 Vial] 20 unit SUBQ 1700 metFORMIN [Glucophage] 500 mg PO BIDWM 08/16/22 05:00 CBC - COMP BLD CT W/AUTO DIFF [HEME] DAILYLAB 08/17/22 05:00 CBC - COMP BLD CT W/AUTO DIFF [HEME] DAILYLAB 08/18/22 05:00 CBC - COMP BLD CT W/AUTO DIFF [HEME] DAILYLAB 08/19/22 05:00 CBC - COMP BLD CT W/AUTO DIFF [HEME] DAILYLAB Subjective - Subjective Patient Reports: Feeling Better (Less pain in L calf than yesterday, no pain (no sensation) in feet and toes) Objective Vital Signs: Vital Signs - 24 hr 08/14/22 08/14/22 08/15/22 16:12 21:01 00:00 Temperature 36.8 C 36.9 C Heart Rate [ 86 80 Brachial] Respiratory 18 15 Rate Blood Pressure 130/67 Blood Pressure 136/72 H 118/65 [Right Brachial artery] O2 Saturation 99 97 08/15/22 08/15/22 07:49 09:27 Temperature 36.5 C Heart Rate [ 77 Brachial] Respiratory 18 Rate Blood Pressure 123/75 Blood Pressure 123/75 [Right Brachial artery] O2 Saturation 96 Oxygen O2 Source Room air I&O (Last 24 Hrs): Intake and Output Totals x24h 08/13/22 08/14/22 08/15/22 23:59 23:59 23:59 Intake Total 4541.666 5076.25 2645 Output Total 300 1125 1205 Balance 4241.666 3951.25 1440 General: Alert, Oriented x3 HEENT: EOMI, Mucous membr. moist/pink Neck: Supple Neuro: Alert, Other (Sens deficit of LEs to mid shins) Cardiovascular: Regular rate, No murmurs Respiratory: No respiratory distress, Breath sounds nml Abdomen: Normal bowel sounds, Soft, Other (Obese) Extremities: Other (L wyatt swelling, redness and tenderness decreased from below knee yestrday to mid wyatt today, L foot and toes are bandaged) - Results Results: Laboratory Results WBC 9.8 x10^3/uL (4.8-10.8) 08/15/22 04:15 RBC 3.74 10^6/uL (4.70-6.10) L 08/15/22 04:15 Hgb 9.7 g/dL (14.0-18.0) L 08/15/22 04:15 Hct 31.9 % (42.0-52.0) L 08/15/22 04:15 MCV 85.3 fL (80.0-94.0) 08/15/22 04:15 MCH 25.9 pg (27.0-31.0) L 08/15/22 04:15 MCHC 30.4 g/dL (32.0-36.0) L 08/15/22 04:15 RDW 14.6 % (12.0-15.0) 08/15/22 04:15 Plt Count 510 10^3/uL (130-450) H 08/15/22 04:15 MPV 9.8 fL (7.4-11.4) 08/15/22 04:15 Neut # (Auto) 7.5 10^3/uL (1.5-6.6) H 08/15/22 04:15 Lymph # (Auto) 1.3 10^3/uL (1.5-3.5) L 08/15/22 04:15 [place] # (Auto) 0.8 10^3/uL (0.0-1.0) 08/15/22 04:15 Eos # (Auto) 0.1 10^3/uL (0.0-0.7) 08/15/22 04:15 Baso # (Auto) 0.0 10^3/uL (0.0-0.1) 08/15/22 04:15 Absolute Nucleated RBC 0.00 x10^3/uL 08/15/22 04:15 Total Counted 100 08/09/22 19:59 Band Neuts % (Manual) 2 % (0-10) 08/09/22 19:59 Abnorm Lymph % (Manual) 0 % 08/09/22 19:59 Nucleated RBC % 0.0 /100WBC 08/15/22 04:15 Neutrophils # (Manual) 18.7 10^3/uL (1.5-6.6) H 08/09/22 19:59 Lymphocytes # (Manual) 1.3 10^3/uL (1.5-3.5) L 08/09/22 19:59 Monocytes # (Manual) 1.3 10^3/uL (0.0-1.0) H 08/09/22 19:59 Eosinophils # (Manual) 0.0 10^3/uL (0-0.7) 08/09/22 19:59 Basophils # (Manual) 0.0 10^3/uL (0-0.1) 08/09/22 19:59 Differential Comment MANUAL DIFFERENTIAL 08/09/22 19:59 WBC Morphology 2+ TOXIC GRANULATION (NORMAL) 08/09/22 19:59 Platelet Estimate NORMAL (130-450,000) (NORMAL) 08/09/22 19:59 Platelet Morphology NORMAL APPEARANCE (NORMAL) 08/09/22 19:59 RBC Morph Micro Appear NORMAL APPEARANCE (NORMAL) 08/09/22 19:59 ESR 64 mm/Hr (0-15) H 08/09/22 19:59 Sodium 136 mmol/L (135-145) 08/15/22 04:15 Potassium 4.2 mmol/L (3.5-5.0) 08/15/22 04:15 Chloride 105 mmol/L (101-111) 08/15/22 04:15 Carbon Dioxide 21 mmol/L (21-32) 08/15/22 04:15 Anion Gap 10.0 (6-13) 08/15/22 04:15 BUN 16 mg/dL (6-20) 08/15/22 04:15 Creatinine 1.0 mg/dL (0.6-1.2) 08/15/22 04:15 Estimated GFR (MDRD) 83 (>89) L 08/15/22 04:15 Glucose 208 mg/dL (70-100) H 08/15/22 04:15 POC Whole Bld Glucose 234 mg/dL (70 - 100) H 08/15/22 11:53 Estimat Average Glucose 298 mg/dL (70-100) H 08/10/22 06:26 Hemoglobin A1c % 12.0 % (4.27-6.07) H 08/10/22 06:26 Lactic Acid 1.4 mmol/L (0.5-2.2) 08/09/22 21:46 Calcium 7.4 mg/dL (8.5-10.3) L 08/15/22 04:15 Total Bilirubin 1.4 mg/dL (0.2-1.0) H 08/10/22 06:26 AST 22 IU/L (10-42) 08/10/22 06:26 ALT 21 IU/L (10-60) 08/10/22 06:26 Alkaline Phosphatase 113 IU/L (42-121) 08/10/22 06:26 C-Reactive Protein 19.4 mg/dL (0-1.0) H 08/14/22 05:53 Total Protein 6.6 g/dL (6.7-8.2) L 08/10/22 06:26 Albumin 2.7 g/dL (3.2-5.5) L 08/10/22 06:26 Globulin 3.9 g/dL (2.1-4.2) 08/10/22 06:26 Albumin/Globulin Ratio 0.7 (1.0-2.2) L 08/10/22 06:26 Triglycerides 136 mg/dL (-149) 08/10/22 06:26 Cholesterol 153 mg/dL (-199) 08/10/22 06:26 LDL Cholesterol, Calc 97 mg/dL (-129) 08/10/22 06:26 VLDL Cholesterol 27 mg/dL 08/10/22 06:26 HDL Cholesterol 29 mg/dL (60-) L 08/10/22 06:26 LDL/HDL Ratio 3.3 (<3.6) 08/10/22 06:26 Cholesterol/HDL Ratio 5.3 (<5.0) 08/10/22 06:26 Lipase 23 U/L (22-51) 08/09/22 19:59 Procalcitonin 0.84 ng/mL (<0.5) H 08/09/22 21:46 TSH 0.84 uIU/mL (0.34-5.60) 08/10/22 06:26 Urine Color DARK YELLOW 08/09/22 20:27 Urine Clarity CLEAR (CLEAR) 08/09/22 20:27 Urine pH 5.5 PH (5.0-7.5) 08/09/22 20:27 Ur Specific [place] 1.015 (1.002-1.030) 08/09/22 20:27 Urine Protein NEGATIVE mg/dL (NEGATIVE) 08/09/22 20:27 Urine Glucose (UA) >=1000 mg/dL (NEGATIVE) H 08/09/22 20:27 Urine Ketones TRACE mg/dL (NEGATIVE) 08/09/22 20:27 Urine Occult Blood TRACE-INTA (NEGATIVE) 08/09/22 20:27 Urine Nitrite NEGATIVE (NEGATIVE) 08/09/22 20:27 Urine Bilirubin SMALL (NEGATIVE) H 08/09/22 20:27 Urine Urobilinogen 2 E.U./dL (NORMAL) H 08/09/22 20:27 Ur Leukocyte Esterase NEGATIVE (NEGATIVE) 08/09/22 20:27 Ur Microscopic Review NOT INDICATED 08/09/22 20:27 Urine Culture Comments NOT INDICATED 08/09/22 20:27 Nasal Adenovirus (PCR) NOT DETECTED 08/09/22 20:27 Nasal B. parapertussis DNA (PCR) NOT DETECTED 08/09/22 20:27 Nasal Coronavir 229E PCR NOT DETECTED 08/09/22 20:27 Nasal Coronavir HKU1 PCR NOT DETECTED 08/09/22 20:27 Nasal Coronavir NL63 PCR NOT DETECTED 08/09/22 20:27 Nasal Coronavir OC43 PCR NOT DETECTED 08/09/22 20:27 Nasal Enterovir/Rhinovir PCR NOT DETECTED 08/09/22 20:27 Nasal Influenza B PCR NOT DETECTED 08/09/22 20:27 Nasal Influenza A PCR NOT DETECTED 08/09/22 20:27 Nasal Parainfluen 1 PCR NOT DETECTED 08/09/22 20:27 Nasal Parainfluen 2 PCR NOT DETECTED 08/09/22 20:27 Nasal Parainfluen 3 PCR NOT DETECTED 08/09/22 20:27 Nasal Parainfluen 4 PCR NOT DETECTED 08/09/22 20:27 Nasal RSV (PCR) NOT DETECTED 08/09/22 20:27 Nasal B.pertussis DNA PCR NOT DETECTED 08/09/22 20:27 Nasal C.pneumoniae (PCR) NOT DETECTED 08/09/22 20:27 Yannick Human Metapneumo PCR NOT DETECTED 08/09/22 20:27 Nasal M.pneumoniae (PCR) NOT DETECTED 08/09/22 20:27 Nasal SARS-CoV-2 (PCR) NOT DETECTED 08/09/22 20:27 Last Dose Date 08/14/2022 08/14/22 13:55 Last Dose Time 0336 08/14/22 13:55 Vancomycin Trough 16.6 ug/mL (10.0-20.0) 08/14/22 13:55 Sepsis Event Note (H) - Evaluation Current Stage of Sepsis: Ruled out
--- NOTE | 2022-08-15 13:03 | PROVIDER PROGRESS NOTE ---
Subjective - General Admit Date: 08/09/22 - Review of Systems General: positive: No symptoms Objective - Patient Data Vital Signs: Vital Signs x48h Temp Pulse Resp BP BP Pulse Ox 08/15/22 09:27 123/75 08/15/22 07:49 36.5 C 77 18 123/75 96 Weight: Weight 08/13/22 08/14/22 08/15/22 23:59 23:59 23:59 Weight (kg) 154 kg Intake & Output: Intake and Output Totals x24h 08/13/22 08/14/22 08/15/22 23:59 23:59 23:59 Intake Total 4541.666 5076.25 2645 Output Total 300 1125 1205 Balance 4241.666 3951.25 1440 - Lab Results Lab Results: 08/15/22 04:15 08/15/22 04:15 Other Lab Results: Lab Results x24hrs 08/15/22 08/15/22 08/15/22 Range/Units 11:53 07:52 04:15 WBC (4.8-10.8) x10^3/uL RBC (4.70-6.10) 10^6/uL Hgb (14.0-18.0) g/dL Hct (42.0-52.0) % MCV (80.0-94.0) fL MCH (27.0-31.0) pg MCHC (32.0-36.0) g/dL RDW (12.0-15.0) % Plt Count (130-450) 10^3/uL MPV (7.4-11.4) fL Neut # (Auto) (1.5-6.6) 10^3/uL Lymph # (Auto) (1.5-3.5) 10^3/uL [place] # (Auto) (0.0-1.0) 10^3/uL Eos # (Auto) (0.0-0.7) 10^3/uL Baso # (Auto) (0.0-0.1) 10^3/uL Absolute Nucleated RBC x10^3/uL Nucleated RBC % /100WBC Sodium 136 (135-145) mmol/L Potassium 4.2 (3.5-5.0) mmol/L Chloride 105 (101-111) mmol/L Carbon Dioxide 21 (21-32) mmol/L Anion Gap 10.0 (6-13) BUN 16 (6-20) mg/dL Creatinine 1.0 (0.6-1.2) mg/dL Estimated GFR (MDRD) 83 L (>89) Glucose 208 H (70-100) mg/dL POC Whole Bld Glucose 234 H 210 H (70 - 100) mg/dL Calcium 7.4 L (8.5-10.3) mg/dL Last Dose Date Last Dose Time Vancomycin Trough (10.0-20.0) ug/mL 08/15/22 08/14/22 08/14/22 Range/Units 04:15 20:39 16:45 WBC 9.8 (4.8-10.8) x10^3/uL RBC 3.74 L (4.70-6.10) 10^6/uL Hgb 9.7 L (14.0-18.0) g/dL Hct 31.9 L (42.0-52.0) % MCV 85.3 (80.0-94.0) fL MCH 25.9 L (27.0-31.0) pg MCHC 30.4 L (32.0-36.0) g/dL RDW 14.6 (12.0-15.0) % Plt Count 510 H (130-450) 10^3/uL MPV 9.8 (7.4-11.4) fL Neut # (Auto) 7.5 H (1.5-6.6) 10^3/uL Lymph # (Auto) 1.3 L (1.5-3.5) 10^3/uL [place] # (Auto) 0.8 (0.0-1.0) 10^3/uL Eos # (Auto) 0.1 (0.0-0.7) 10^3/uL Baso # (Auto) 0.0 (0.0-0.1) 10^3/uL Absolute Nucleated RBC 0.00 x10^3/uL Nucleated RBC % 0.0 /100WBC Sodium (135-145) mmol/L Potassium (3.5-5.0) mmol/L Chloride (101-111) mmol/L Carbon Dioxide (21-32) mmol/L Anion Gap (6-13) BUN (6-20) mg/dL Creatinine (0.6-1.2) mg/dL Estimated GFR (MDRD) (>89) Glucose (70-100) mg/dL POC Whole Bld Glucose 227 H 221 H (70 - 100) mg/dL Calcium (8.5-10.3) mg/dL Last Dose Date Last Dose Time Vancomycin Trough (10.0-20.0) ug/mL 08/14/22 Range/Units 13:55 WBC (4.8-10.8) x10^3/uL RBC (4.70-6.10) 10^6/uL Hgb (14.0-18.0) g/dL Hct (42.0-52.0) % MCV (80.0-94.0) fL MCH (27.0-31.0) pg MCHC (32.0-36.0) g/dL RDW (12.0-15.0) % Plt Count (130-450) 10^3/uL MPV (7.4-11.4) fL Neut # (Auto) (1.5-6.6) 10^3/uL Lymph # (Auto) (1.5-3.5) 10^3/uL [place] # (Auto) (0.0-1.0) 10^3/uL Eos # (Auto) (0.0-0.7) 10^3/uL Baso # (Auto) (0.0-0.1) 10^3/uL Absolute Nucleated RBC x10^3/uL Nucleated RBC % /100WBC Sodium (135-145) mmol/L Potassium (3.5-5.0) mmol/L Chloride (101-111) mmol/L Carbon Dioxide (21-32) mmol/L Anion Gap (6-13) BUN (6-20) mg/dL Creatinine (0.6-1.2) mg/dL Estimated GFR (MDRD) (>89) Glucose (70-100) mg/dL POC Whole Bld Glucose (70 - 100) mg/dL Calcium (8.5-10.3) mg/dL Last Dose Date 08/14/2022 Last Dose Time 0336 Vancomycin Trough 16.6 (10.0-20.0) ug/mL - Current Medications Current Medications: Current Medications Generic Name Dose Route Start Last Admin Trade Name Freq PRN Reason Stop Dose Admin Acetaminophen 650 mg 08/09/22 21:56 08/13/22 23:35 Acetaminophen 325 Mg Tablet PO 650 mg Q4HR PRN Administration Pain 1 to 4, or Fever Hydrocodone Bitart/Acetaminophen 1 tab 08/09/22 21:56 08/15/22 06:42 Hydrocod/Acetam 10 Mg/325 Mg Tablet PO 1 tab Q4HR PRN Administration Pain 8 to 10 Hydrocodone Bitart/Acetaminophen 1 tab 08/09/22 21:56 08/13/22 18:45 Hydrocod/Acetam 5/325 Mg Tablet PO 1 tab Q4HR PRN Administration Pain 5 to 7 Carboxymethylcellulose 1 drops 08/10/22 01:01 08/12/22 14:33 Carboxymethylcellulose Ophth Drops EACHEYE 1 drops PRN PRN Administration Dry Eye Docusate Sodium 250 - 500 mg 08/10/22 21:00 08/15/22 09:28 Docusate Sodium 250 Mg Capsule PO Not Given DAILY ADRI Guaifenesin 600 mg 08/10/22 21:00 08/15/22 09:28 Guaifenesin 600 Mg Tablet PO 600 mg BID ADRI Administration Ceftriaxone Sodium 2 gm/ 100 mls @ 200 mls/hr 08/15/22 12:00 08/15/22 12:36 Sodium Chloride IV 200 mls/hr DAILY ADRI Administration Insulin Human Isoph/Insulin Regular 40 unit 08/15/22 09:00 08/15/22 09:29 Insulin 70/30 Human 300 Unit/3 Ml Vial SUBQ 40 unit DAILY ADRI Administration Losartan Potassium 50 mg 08/10/22 09:00 08/15/22 09:27 Losartan 50 Mg Tablet PO 50 mg BID ADRI Administration Metoclopramide HCl 5 mg 08/11/22 22:37 08/11/22 23:00 Metoclopramide 10 Mg/2 Ml Vial IVP 5 mg Q6HR PRN Administration NEEDED PER PROVIDER ORDERS Metoprolol Tartrate 25 mg 08/10/22 09:00 08/15/22 09:27 Metoprolol Tartrate 25 Mg Tablet PO 25 mg BID ADRI Administration Multi-Ingredient Ointment 1 applic 08/13/22 18:12 08/13/22 18:46 Zinc Oxide 20% Oint 30 Gm Tube TOP 1 applic PRN PRN Administration Skin Care Multivitamins/Minerals 1 tab 08/15/22 09:00 08/15/22 09:28 Multivitamin W/Minerals Tablet PO 1 tab DAILYWM ADRI Administration Pantoprazole Sodium 40 mg 08/10/22 07:00 08/15/22 06:41 Pantoprazole 40 Mg Tablet PO 40 mg QDAC ADRI Administration Polyethylene Glycol 17 gm 08/11/22 09:00 08/15/22 09:26 Polyethylene Glycol 3350 17 Gm Packet PO 17 gm DAILY ADRI Administration Senna 8.6 - 17.2 mg 08/14/22 09:00 08/15/22 09:30 Senna 8.6 Mg Tablet PO Not Given DAILY ADRI Sodium Chloride 10 ml 08/10/22 01:00 08/15/22 09:30 Sodium Chloride Flush 0.9% 10 Ml Syringe IVP Not Given 0100,0900,1700 [facility] - Physical Exam Comments/Other: The left foot swelling has decreased. The cellulitis to the lower left leg seems to be markedly improved but he still has edema to the left leg over the tibia. The ulcers do not show any communication with a pocket of pus or purulence. The wounds about the fifth metatarsal head plantar surface and lateral border of fifth metatarsal bleed readily with gentle curettage. There is a serous discharge present from both ulcers. There is no vascular compromise. Sensory neuropathy is definitely present Impression/Plan - Problem List Problem List: Diabetic foot infection with neuropathy, ulceration to fifth metatarsal and fifth ray, cellulitis, osteomyelitis Local wound care rendered with sterile dressing to left foot, continue antibiotics and elevation of foot.
[2022-08-15] MEDS ORDERED: INSULIN 70/30 HUMAN 300 UNIT/3 ML VIAL SUBQ SCH (17:00)
[2022-08-15] MEDS: metFORMIN 500 MG TABLET PO SCH (17:36)
[2022-08-16] MEDS: SODIUM CHLORIDE FLUSH 0.9% 10 ML SYRINGE IVP SCH ×3 (01:00→17:08)
[2022-08-16 04:45] LABS: BASOPHILS % (AUTO) 0.3 %; EOSINOPHILS # (AUTO) 0.1 10^3/uL (0.0-0.7); EOSINOPHILS % (AUTO) 1.5 %; HCT - HEMATOCRIT 30.2 % (42.0-52.0); HGB - HEMOGLOBIN 9.2 g/dL (14.0-18.0); LYMPHOCYTES # (AUTO) 1.3 10^3/uL (1.5-3.5); LYMPHOCYTES % (AUTO) 14.2 %; MEAN CORPUSCULAR HEMOGLOBIN 26.1 pg (27.0-31.0); MEAN CORPUSCULAR HGB CONC 30.5 g/dL (32.0-36.0); MEAN CORPUSCULAR VOLUME 85.8 fL (80.0-94.0); MEAN PLATELET VOLUME 9.6 fL (7.4-11.4); MONOCYTES # (AUTO) 0.8 10^3/uL (0.0-1.0); MONOCYTES % (AUTO) 8.5 %; NEUTROPHILS # (AUTO) 6.8 10^3/uL (1.5-6.6); NEUTROPHILS % (AUTO) 75.1 %; PLT - PLATELET COUNT 521 10^3/uL (130-450); RED BLOOD COUNT 3.52 10^6/uL (4.70-6.10); RED CELL DISTRIBUTION WIDTH 14.6 % (12.0-15.0); WHITE BLOOD COUNT 9.1 x10^3/uL (4.8-10.8)
[2022-08-16 04:52] LABS: CALCIUM 7.8 mg/dL (8.5-10.3); CREATININE 0.9 mg/dL (0.6-1.2)
[2022-08-16] MEDS: PANTOPRAZOLE 40 MG TABLET PO SCH (06:15)
[2022-08-16] MEDS: ACETAMINOPHEN 325 MG TABLET PO PRN (06:15)
[2022-08-16] MEDS: INSULIN LISPRO 300 UNIT/3 ML PEN SUBQ SCH ×6 (08:02→21:33)
[2022-08-16] MEDS: metFORMIN 500 MG TABLET PO SCH ×2 (08:33→17:06)
[2022-08-16] MEDS: guaiFENesin 600 MG TABLET PO SCH (08:33)
[2022-08-16] MEDS: MULTIVITAMIN W/MINERALS TABLET PO SCH (08:33)
[2022-08-16] MEDS: METOPROLOL TARTRATE 25 MG TABLET PO SCH ×2 (08:35→21:33)
[2022-08-16] MEDS: LOSARTAN 50 MG TABLET PO SCH ×2 (08:37→21:36)
[2022-08-16] MEDS: cefTRIAXone 2 GM in SODIUM CHLORIDE 0.9% MINIBAG 100 ML IV SCH (08:38)
[2022-08-16] MEDS: polyethylene glycoL 3350 17 GM PACKET PO SCH (09:24)
[2022-08-16] MEDS: SENNA 8.6 MG TABLET PO SCH (09:24)
[2022-08-16] MEDS: DOCUSATE SODIUM 250 MG CAPSULE PO SCH (09:25)
[2022-08-16] MEDS: INSULIN 70/30 HUMAN 300 UNIT/3 ML VIAL SUBQ SCH (09:43)
[2022-08-16] MEDS: SODIUM CHLORIDE FLUSH 0.9% 10 ML SYRINGE IVP PRN (09:45)
[2022-08-16] MEDS: HYDROcod/ACETAM 5/325 MG TABLET PO PRN ×2 (12:18→21:33)
[2022-08-16] MEDS ORDERED: hydroCHLOROthiazide 25 MG TABLET PO STA (15:02)
--- NOTE | 2022-08-16 15:37 | PROVIDER PROGRESS NOTE ---
Assessment/Plan - Problem List (1) Diabetic foot infection Assessment/Plan: All labs and his VS were reviewed. No fever since 08/10 and WBC has improved since antibx were started Blood cultures are negative to date. No wound cultures were sent initially. On 08/13, Dr. Wren the wound color consultant, did debridement and sent wound cultures then. That culture is growing beta-hemolytic group B Strep (usually pansensitive) and also Klebsiella oxytoca and now also identified to be growing Enterococcus faecalis. All 3 bacterial sensitivities were reviewed. PT had evaluated him and advised no-weight bearing, and to a walker. He feels no pain in the area with the cellulitis or the osteomyelitis. There was no lidocaine injections used when Dr. Wren did the debridement 08/13. The MRI showed areas suspicious for soft tissue abscess, areas consistent with cellulitis, and also septic arthritis and early osteomyelitis. An Orthopedic consult was done 08/14, and Dr Peterson agreed that he has cellulitis, with borders not yet defined, has septic arthritis and early osteo. Dr Peterson looked and the infection today and felt there is improvement. Plan: Continue the dressing changes as per Ortho and Wound clinic providers Empiric Zosyn will now be changed to Ceftriaxone 2g iv daily, to treat the B- hemolytic Strep and the Klebsiella Continue no weight bearing with the L foot Follow WBC daily Appreciate recommendations from Wound service and from Ortho. (2) Cellulitis of left foot Plan: As in #1 Once the cellulitis has resolved, further surgical intervention (of the ulcer or the bone) may be required, as per Ortho consult. (3) Septic arthritis As in #1 (4) Osteomyelitis Plan: As in #1 (5) Leg edema Until today the patient only had swelling of the left foot, L ankle and up the wyatt. Today he notices and has obvious significant swelling of both ankles. He says he is on HCTZ at home and it is not being used while he was here has been here Plan: We will give HCTZ daily starting today. Keep legs elevated when he is OOB in chair, as he is doing (6) Type 2 diabetes mellitus, uncontrolled, with hyperglycemia, with complications of diabetic foot infection, on long-term insulin His A1c came back at 12, but he has had this foot infection for several mos. He did admit he followed no strict diet. He took 50 units of 70/30 Insulin BID before admission. We have him on 20 units at night and 40 units in the morning plus mealtime 8U of Reg Insulin We also restarted Metformin at 500 BID. All labs were reviewed. His glu levels are improving and he was even low at 99 before dinner. Plan: Will stop the mealtime Reg Insulin Cont the 40 U of 70/30 Insulin in the morning, and 20U nighttime 70/30 Insulin Continue to encourage him to lose weight and to be more serious about his DM control and aim for an A1c of less than 7%, after the infection clears. (7) Diabetic neuropathy He feels no pain in the area with the cellulitis or the osteomyelitis. There was no lidocaine injections used when Dr. Wren did the debridement yesterday 08/13, he said. Presumably, since he has no pain, he forgets to practice no weight b earing on that L foot when he ambulates to the bathroom Plan: We will give reminders regarding weightbearing No pain medications or neuropathy medications are indicated at this time (8) Difficulty swallowing solids Assessment/Plan: Improved Pt was c/o swallowing food and feeling as if it's stuck in his upper esophagus. Pt apparently has this problem at home and takes Reglan for it. Pt specifically requested Reglan. Telemedicine night doctor ordered Reglan prn several nights ago. Given this information, he likely has diabetic gastroparesis and poor GI motility. Plan: Will continue the order for prn Reglan No indication for an EGD at this time and we have no flouroscopy at this hospital to do a swallowing study (9) Morbid obesity BMI 50-59.9 As per Hx, his BMI is 51.6 today. This complicates his care. (10) Hypokalemia. Plan: Supplement with oral potassium when K low, and follow BMP daily - Current Meds Current Meds: Current Medications Generic Name Dose Route Start Last Admin Trade Name Freq PRN Reason Stop Dose Admin Acetaminophen 650 mg 08/09/22 21:56 08/16/22 06:15 Acetaminophen 325 Mg Tablet PO 650 mg Q4HR PRN Administration Pain 1 to 4, or Fever Hydrocodone Bitart/Acetaminophen 1 tab 08/09/22 21:56 08/15/22 14:40 Hydrocod/Acetam 10 Mg/325 Mg Tablet PO 1 tab Q4HR PRN Administration Pain 8 to 10 Hydrocodone Bitart/Acetaminophen 1 tab 08/09/22 21:56 08/16/22 12:18 Hydrocod/Acetam 5/325 Mg Tablet PO 1 tab Q4HR PRN Administration Pain 5 to 7 Carboxymethylcellulose 1 drops 08/10/22 01:01 08/12/22 14:33 Carboxymethylcellulose Ophth Drops EACHEYE 1 drops PRN PRN Administration Dry Eye Docusate Sodium 250 - 500 mg 08/10/22 21:00 08/16/22 09:25 Docusate Sodium 250 Mg Capsule PO Not Given DAILY [facility] Ceftriaxone Sodium 2 gm/ 100 mls @ 200 mls/hr 08/15/22 12:00 08/16/22 09:23 Sodium Chloride IV Infused DAILY [facility] Infusion Insulin Human Isoph/Insulin Regular 40 unit 08/15/22 09:00 08/16/22 09:43 Insulin 70/30 Human 300 Unit/3 Ml Vial SUBQ 40 unit DAILY ADRI Administration Insulin Human Isoph/Insulin Regular 20 unit 08/15/22 17:00 08/15/22 17:36 Insulin 70/30 Human 300 Unit/3 Ml Vial SUBQ 20 unit 1700 ADRI Administration Insulin Human Lispro 3 - 11 unit 08/15/22 12:24 08/16/22 11:59 Insulin Lispro 300 Unit/3 Ml Pen SUBQ 5 unit 0800,1200,1700,2100 [facility] Administration Protocol Insulin Human Lispro 8 unit 08/15/22 12:51 08/16/22 11:59 Insulin Lispro 300 Unit/3 Ml Pen SUBQ 8 unit TIDWM [facility] Administration Protocol Losartan Potassium 50 mg 08/10/22 09:00 08/16/22 08:37 Losartan 50 Mg Tablet PO 50 mg BID ADRI Administration Metformin HCl 500 mg 08/15/22 17:00 08/16/22 08:33 Metformin 500 Mg Tablet PO 500 mg BIDWM ADRI Administration Metoclopramide HCl 5 mg 08/11/22 22:37 08/11/22 23:00 Metoclopramide 10 Mg/2 Ml Vial IVP 5 mg Q6HR PRN Administration NEEDED PER PROVIDER ORDERS Metoprolol Tartrate 25 mg 08/10/22 09:00 08/16/22 08:35 Metoprolol Tartrate 25 Mg Tablet PO 25 mg BID ADRI Administration Multi-Ingredient Ointment 1 applic 08/13/22 18:12 08/13/22 18:46 Zinc Oxide 20% Oint 30 Gm Tube TOP 1 applic PRN PRN Administration Skin Care Multivitamins/Minerals 1 tab 08/15/22 09:00 08/16/22 08:33 Multivitamin W/Minerals Tablet PO 1 tab DAILYWM ADRI Administration Ondansetron HCl 4 mg 08/09/22 21:56 08/16/22 08:38 Ondansetron 4 Mg/2 Ml Vial IVP 4 mg Q6HR PRN Administration Nausea / Vomiting Pantoprazole Sodium 40 mg 08/10/22 07:00 08/16/22 06:15 Pantoprazole 40 Mg Tablet PO 40 mg QDAC ADRI Administration Polyethylene Glycol 17 gm 08/11/22 09:00 08/16/22 09:24 Polyethylene Glycol 3350 17 Gm Packet PO Not Given DAILY ADRI Senna 8.6 - 17.2 mg 08/14/22 09:00 08/16/22 09:24 Senna 8.6 Mg Tablet PO Not Given DAILY ADRI Sodium Chloride 10 ml 08/09/22 21:56 08/16/22 09:45 Sodium Chloride Flush 0.9% 10 Ml Syringe IVP 10 ml PRN PRN Administration NEEDED PER PROVIDER ORDERS Sodium Chloride 10 ml 08/10/22 01:00 08/16/22 08:38 Sodium Chloride Flush 0.9% 10 Ml Syringe IVP 10 ml 0100,0900,1700 ADRI Administration - Lab Result Fish Bone Diagrams: 08/17/22 05:09 08/16/22 04:34 - Additional Planning My Orders: My Active Orders 08/15/22 17:00 Insulin 70/30 Human [Humulin 70-30 Vial] 20 unit SUBQ 1700 metFORMIN [Glucophage] 500 mg PO BIDWM 08/17/22 05:00 CBC - COMP BLD CT W/AUTO DIFF [HEME] DAILYLAB 08/17/22 09:00 hydroCHLOROthiazide [Hydrodiuril] 25 mg PO DAILY 08/18/22 05:00 CBC - COMP BLD CT W/AUTO DIFF [HEME] DAILYLAB 08/19/22 05:00 CBC - COMP BLD CT W/AUTO DIFF [HEME] DAILYLAB Subjective - Subjective Patient Reports: Other (L foot and wyatt feels better, less tense, but "now both ankles are swollen, and he is not getting his HCTZ".) Objective Vital Signs: Vital Signs - 24 hr 08/15/22 08/15/22 08/15/22 16:00 20:55 22:53 Temperature 37.1 C 37.4 C Heart Rate [ 79 90 Brachial] Respiratory 16 18 Rate Blood Pressure 115/61 Blood Pressure 144/75 H 119/74 [Right Brachial artery] O2 Saturation 95 97 08/16/22 08/16/22 08:00 08:35 Temperature 36.4 C L Heart Rate [ 70 Brachial] Respiratory 16 Rate Blood Pressure 135/65 H Blood Pressure 123/67 [Right Brachial artery] O2 Saturation 97 Oxygen O2 Source Room air I&O (Last 24 Hrs): Intake and Output Totals x24h 08/14/22 08/15/22 08/16/22 23:59 23:59 23:59 Intake Total 5076.25 3635 1260 Output Total 1125 2105 675 Balance 3951.25 1530 585 General: Alert HEENT: Atraumatic, Mucous membr. moist/pink Neck: Supple Neuro: Alert, Other (No sens both feet) Cardiovascular: Regular rate, No murmurs Respiratory: No respiratory distress Abdomen: Normal bowel sounds, Soft, Other (Obese) Extremities: Other (2+ edema both ankles. L foot is bandaged with prox toes) - Results Results: Laboratory Results WBC 9.1 x10^3/uL (4.8-10.8) 08/16/22 04:34 RBC 3.52 10^6/uL (4.70-6.10) L 08/16/22 04:34 Hgb 9.2 g/dL (14.0-18.0) L 08/16/22 04:34 Hct 30.2 % (42.0-52.0) L 08/16/22 04:34 MCV 85.8 fL (80.0-94.0) 08/16/22 04:34 MCH 26.1 pg (27.0-31.0) L 08/16/22 04:34 MCHC 30.5 g/dL (32.0-36.0) L 08/16/22 04:34 RDW 14.6 % (12.0-15.0) 08/16/22 04:34 Plt Count 521 10^3/uL (130-450) H 08/16/22 04:34 MPV 9.6 fL (7.4-11.4) 08/16/22 04:34 Neut # (Auto) 6.8 10^3/uL (1.5-6.6) H 08/16/22 04:34 Lymph # (Auto) 1.3 10^3/uL (1.5-3.5) L 08/16/22 04:34 [place] # (Auto) 0.8 10^3/uL (0.0-1.0) 08/16/22 04:34 Eos # (Auto) 0.1 10^3/uL (0.0-0.7) 08/16/22 04:34 Baso # (Auto) 0.0 10^3/uL (0.0-0.1) 08/16/22 04:34 Absolute Nucleated RBC 0.00 x10^3/uL 08/16/22 04:34 Total Counted 100 08/09/22 19:59 Band Neuts % (Manual) 2 % (0-10) 08/09/22 19:59 Abnorm Lymph % (Manual) 0 % 08/09/22 19:59 Nucleated RBC % 0.0 /100WBC 08/16/22 04:34 Neutrophils # (Manual) 18.7 10^3/uL (1.5-6.6) H 08/09/22 19:59 Lymphocytes # (Manual) 1.3 10^3/uL (1.5-3.5) L 08/09/22 19:59 Monocytes # (Manual) 1.3 10^3/uL (0.0-1.0) H 08/09/22 19:59 Eosinophils # (Manual) 0.0 10^3/uL (0-0.7) 08/09/22 19:59 Basophils # (Manual) 0.0 10^3/uL (0-0.1) 08/09/22 19:59 Differential Comment MANUAL DIFFERENTIAL 08/09/22 19:59 WBC Morphology 2+ TOXIC GRANULATION (NORMAL) 08/09/22 19:59 Platelet Estimate NORMAL (130-450,000) (NORMAL) 08/09/22 19:59 Platelet Morphology NORMAL APPEARANCE (NORMAL) 08/09/22 19:59 RBC Morph Micro Appear NORMAL APPEARANCE (NORMAL) 08/09/22 19:59 ESR 64 mm/Hr (0-15) H 08/09/22 19:59 Sodium 136 mmol/L (135-145) 08/16/22 04:34 Potassium 4.0 mmol/L (3.5-5.0) 08/16/22 04:34 Chloride 107 mmol/L (101-111) 08/16/22 04:34 Carbon Dioxide 21 mmol/L (21-32) 08/16/22 04:34 Anion Gap 8.0 (6-13) 08/16/22 04:34 BUN 19 mg/dL (6-20) 08/16/22 04:34 Creatinine 0.9 mg/dL (0.6-1.2) 08/16/22 04:34 Estimated GFR (MDRD) 94 (>89) 08/16/22 04:34 Glucose 133 mg/dL (70-100) H 08/16/22 04:34 POC Whole Bld Glucose 190 mg/dL (70 - 100) H 08/16/22 11:36 Estimat Average Glucose 298 mg/dL (70-100) H 08/10/22 06:26 Hemoglobin A1c % 12.0 % (4.27-6.07) H 08/10/22 06:26 Lactic Acid 1.4 mmol/L (0.5-2.2) 08/09/22 21:46 Calcium 7.8 mg/dL (8.5-10.3) L 08/16/22 04:34 Total Bilirubin 1.4 mg/dL (0.2-1.0) H 08/10/22 06:26 AST 22 IU/L (10-42) 08/10/22 06:26 ALT 21 IU/L (10-60) 08/10/22 06:26 Alkaline Phosphatase 113 IU/L (42-121) 08/10/22 06:26 C-Reactive Protein 19.4 mg/dL (0-1.0) H 08/14/22 05:53 Total Protein 6.6 g/dL (6.7-8.2) L 08/10/22 06:26 Albumin 2.7 g/dL (3.2-5.5) L 08/10/22 06:26 Globulin 3.9 g/dL (2.1-4.2) 08/10/22 06:26 Albumin/Globulin Ratio 0.7 (1.0-2.2) L 08/10/22 06:26 Triglycerides 136 mg/dL (-149) 08/10/22 06:26 Cholesterol 153 mg/dL (-199) 08/10/22 06:26 LDL Cholesterol, Calc 97 mg/dL (-129) 08/10/22 06:26 VLDL Cholesterol 27 mg/dL 08/10/22 06:26 HDL Cholesterol 29 mg/dL (60-) L 08/10/22 06:26 LDL/HDL Ratio 3.3 (<3.6) 08/10/22 06:26 Cholesterol/HDL Ratio 5.3 (<5.0) 08/10/22 06:26 Lipase 23 U/L (22-51) 08/09/22 19:59 Procalcitonin 0.84 ng/mL (<0.5) H 08/09/22 21:46 TSH 0.84 uIU/mL (0.34-5.60) 08/10/22 06:26 Urine Color DARK YELLOW 08/09/22 20:27 Urine Clarity CLEAR (CLEAR) 08/09/22 20:27 Urine pH 5.5 PH (5.0-7.5) 08/09/22 20:27 Ur Specific [place] 1.015 (1.002-1.030) 08/09/22 20:27 Urine Protein NEGATIVE mg/dL (NEGATIVE) 08/09/22 20:27 Urine Glucose (UA) >=1000 mg/dL (NEGATIVE) H 08/09/22 20:27 Urine Ketones TRACE mg/dL (NEGATIVE) 08/09/22 20:27 Urine Occult Blood TRACE-INTA (NEGATIVE) 08/09/22 20:27 Urine Nitrite NEGATIVE (NEGATIVE) 08/09/22 20:27 Urine Bilirubin SMALL (NEGATIVE) H 08/09/22 20:27 Urine Urobilinogen 2 E.U./dL (NORMAL) H 08/09/22 20:27 Ur Leukocyte Esterase NEGATIVE (NEGATIVE) 08/09/22 20:27 Ur Microscopic Review NOT INDICATED 08/09/22 20:27 Urine Culture Comments NOT INDICATED 08/09/22 20:27 Nasal Adenovirus (PCR) NOT DETECTED 08/09/22 20:27 Nasal B. parapertussis DNA (PCR) NOT DETECTED 08/09/22 20:27 Nasal Coronavir 229E PCR NOT DETECTED 08/09/22 20:27 Nasal Coronavir HKU1 PCR NOT DETECTED 08/09/22 20:27 Nasal Coronavir NL63 PCR NOT DETECTED 08/09/22 20:27 Nasal Coronavir OC43 PCR NOT DETECTED 08/09/22 20:27 Nasal Enterovir/Rhinovir PCR NOT DETECTED 08/09/22 20:27 Nasal Influenza B PCR NOT DETECTED 08/09/22 20:27 Nasal Influenza A PCR NOT DETECTED 08/09/22 20:27 Nasal Parainfluen 1 PCR NOT DETECTED 08/09/22 20:27 Nasal Parainfluen 2 PCR NOT DETECTED 08/09/22 20:27 Nasal Parainfluen 3 PCR NOT DETECTED 08/09/22 20:27 Nasal Parainfluen 4 PCR NOT DETECTED 08/09/22 20:27 Nasal RSV (PCR) NOT DETECTED 08/09/22 20:27 Nasal B.pertussis DNA PCR NOT DETECTED 08/09/22 20:27 Nasal C.pneumoniae (PCR) NOT DETECTED 08/09/22 20:27 Yannick Human Metapneumo PCR NOT DETECTED 08/09/22 20:27 Nasal M.pneumoniae (PCR) NOT DETECTED 08/09/22 20:27 Nasal SARS-CoV-2 (PCR) NOT DETECTED 08/09/22 20:27 Last Dose Date 08/14/2022 08/14/22 13:55 Last Dose Time 03308/14/22 13:55 Vancomycin Trough 16.6 ug/mL (10.0-20.0) 08/14/22 13:55 Sepsis Event Note (H) - Evaluation Current Stage of Sepsis: Ruled out
[2022-08-17] MEDS: SODIUM CHLORIDE FLUSH 0.9% 10 ML SYRINGE IVP SCH ×4 (01:00→23:36)
[2022-08-17] MEDS: CARBOXYMETHYLCELLULOSE OPHTH DROPS EACHEYE PRN (05:14)
[2022-08-17 05:28] LABS: BASOPHILS % (AUTO) 0.3 %; EOSINOPHILS # (AUTO) 0.2 10^3/uL (0.0-0.7); EOSINOPHILS % (AUTO) 2.8 %; HCT - HEMATOCRIT 31.3 % (42.0-52.0); HGB - HEMOGLOBIN 9.5 g/dL (14.0-18.0); LYMPHOCYTES # (AUTO) 1.6 10^3/uL (1.5-3.5); MEAN CORPUSCULAR HEMOGLOBIN 25.9 pg (27.0-31.0); MEAN CORPUSCULAR HGB CONC 30.4 g/dL (32.0-36.0); MEAN CORPUSCULAR VOLUME 85.3 fL (80.0-94.0); MEAN PLATELET VOLUME 9.3 fL (7.4-11.4); MONOCYTES # (AUTO) 0.6 10^3/uL (0.0-1.0); NEUTROPHILS % (AUTO) 67.5 %; PLT - PLATELET COUNT 587 10^3/uL (130-450); RED BLOOD COUNT 3.67 10^6/uL (4.70-6.10); RED CELL DISTRIBUTION WIDTH 14.5 % (12.0-15.0); WHITE BLOOD COUNT 7.5 x10^3/uL (4.8-10.8)
[2022-08-17] MEDS: PANTOPRAZOLE 40 MG TABLET PO SCH (06:39)
[2022-08-17] MEDS: INSULIN LISPRO 300 UNIT/3 ML PEN SUBQ SCH ×4 (08:08→20:45)
[2022-08-17] MEDS: metFORMIN 500 MG TABLET PO SCH ×2 (08:09→16:56)
[2022-08-17] MEDS: MULTIVITAMIN W/MINERALS TABLET PO SCH (08:09)
[2022-08-17] MEDS: LOSARTAN 50 MG TABLET PO SCH ×2 (08:11→20:45)
[2022-08-17] MEDS: METOPROLOL TARTRATE 25 MG TABLET PO SCH ×2 (08:11→20:45)
[2022-08-17] MEDS: hydroCHLOROthiazide 25 MG TABLET PO SCH (08:11)
[2022-08-17] MEDS: cefTRIAXone 2 GM in SODIUM CHLORIDE 0.9% MINIBAG 100 ML IV SCH (08:12)
[2022-08-17] MEDS: DOCUSATE SODIUM 250 MG CAPSULE PO SCH (08:12)
[2022-08-17] MEDS: SENNA 8.6 MG TABLET PO SCH (08:12)
[2022-08-17] MEDS: polyethylene glycoL 3350 17 GM PACKET PO SCH (08:12)
[2022-08-17] MEDS ORDERED: FUROSEMIDE 20 MG/2 ML VIAL IVP STA (09:27)
[2022-08-17] MEDS: INSULIN 70/30 HUMAN 300 UNIT/3 ML VIAL SUBQ SCH ×2 (09:37→16:56)
[2022-08-17] MEDS: SODIUM CHLORIDE FLUSH 0.9% 10 ML SYRINGE IVP PRN (10:22)
--- NOTE | 2022-08-17 13:02 | PROVIDER PROGRESS NOTE ---
Assessment/Plan - Problem List (1) Diabetic foot infection Assessment/Plan: All labs and his VS were reviewed. No fever since 08/10 and WBC has improved since antibx were started Blood cultures are negative to date. No wound cultures were sent initially. On 08/13, Dr. Wren the wound human resource consultant, did debridement and sent wound cultures then. That culture is growing beta-hemolytic group B Strep (usually pansensitive) and also Klebsiella oxytoca and now also identified to be growing Enterococcus faecalis. All 3 bacterial sensitivities were reviewed. PT had evaluated him and advised no-weight bearing, and to a walker. He feels no pain in the area with the cellulitis or the osteomyelitis. There was no lidocaine injections used when Dr. Wren did the debridement 08/13. The MRI showed areas suspicious for soft tissue abscess, areas consistent with cellulitis, and also septic arthritis and early osteomyelitis. An Orthopedic consult was done 08/14, and Dr Peterson agreed that he has cellulitis, with borders not yet defined, has septic arthritis and early osteo. Dr Peterson felt there was improvement, when he evaluated the foot on sequential days. Plan: Continue the dressing changes as per Ortho and Wound clinic providers. A spot on Tu in [facility] clinic has been made for him to be revaluated ther. Continue Ceftriaxone 2g iv daily, to treat the B-hemolytic Strep, Klebsiella and Enterococcus. Add Florastor Continue no weight bearing with the L foot Follow WBC daily Appreciate recommendations from Wound service and from Ortho. (2) Cellulitis of left foot Plan: As in #1 Once the cellulitis has resolved, further surgical intervention (of the ulcer or the bone) may be required, as per Ortho consult. (3) Septic arthritis As in #1 (4) Osteomyelitis Plan: As in #1 (5) Leg edema Until yesterday 08/16, the patient only had swelling of the left foot and wyatt. Since yesterday 08/16, we noticed obvious significant swelling of both ankles. He said he was on HCTZ at home and it was not being used here. That was because he needed iv fluids initially. We restrated HCTZ daily on 08/16 Plan: Will give a dose of Lasix iv today, follow I's and O's and clinicalexam. He may need more than 1 day of Lasix. Continue daily p.o. HCTZ Follow BMP and Mg daily Keep legs elevated when he is OOB in chair, as he is doing (6) Otitis, R side Today the patient complains of right ear pain "deep inside", worsening hearing from "fullness", pain of his outer upper R ear and a sore throat on the right side. His throat has focal erythema, he has no tonsills, there is no tenderness to tugging on the earlobe, but I have no otoscope to examine the canal and ear drum. Plan: Will send off swab for viral PCR We give empiric treatment with a Z-Bk (7) Type 2 diabetes mellitus, uncontrolled, with hyperglycemia, with complications of diabetic foot infection, on long-term insulin His A1c came back at 12, but he has had this foot infection for several mos. He did admit he followed no strict diet. He took 50 units of 70/30 Insulin BID before admission. We have him on 20 units at night and 40 units in the morning plus mealtime 8U of Reg Insulin We also restarted Metformin at 500 BID. All labs were reviewed. His glu levels are improving and on 08/16 he was even low (glu 99) before dinner. I stopped the mealtime 8 u of Reg Insulin, on 08/16 afternoon Plan: Cont the 40 U of 70/30 Insulin in the morning, and 20 U nighttime 70/30 Insulin Continue to encourage him to lose weight and to be more serious about his DM control and aim for an A1c of less than 7%, after the infection clears. (8) Diabetic neuropathy He feels no pain in the area with the cellulitis or the osteomyelitis. There was no lidocaine injections used when Dr. Wren did the debridement yesterday 08/13, he said. Presumably, since he has no pain, he forgets to practice no weight bearing on that L foot when he ambulates to the bathroom Plan: We will give reminders regarding weightbearing No neuropathy medications are indicated at this time (9) Difficulty swallowing solids Assessment/Plan: Improved Several days ago, pt was c/o a cough. I did CXR and saw no infiltrate. The next day he explained it was difficulty sallowing solid food and feeling as if it gets stuck in his upper esophagus. Pt apparently has this problem at home and takes Reglan for it. Pt specifically requested Reglan. Telemedicine night doctor ordered Reglan prn several nights ago. Given this information, I suspected that he may have diabetic gastroparesis and poor GI motility. Now with the c/o R ear pain, fullness and sore throat R side, that swallowing trouble may have been a URI starting. Plan: Continue the order for prn Reglan No indication for an EGD at this time and we have no flouroscopy at this hospital to do a swallowing study (10) Morbid obesity BMI 50-59.9 As per Hx, his BMI is 51.6 today. This complicates his care. (11) Hypokalemia. Plan: Supplement with oral potassium when K low, and follow BMP daily - Current Meds Current Meds: Current Medications Generic Name Dose Route Start Last Admin Trade Name Freq PRN Reason Stop Dose Admin Acetaminophen 650 mg 08/09/22 21:56 08/16/22 06:15 Acetaminophen 325 Mg Tablet PO 650 mg Q4HR PRN Administration Pain 1 to 4, or Fever Hydrocodone Bitart/Acetaminophen 1 tab 08/09/22 21:56 08/15/22 14:40 Hydrocod/Acetam 10 Mg/325 Mg Tablet PO 1 tab Q4HR PRN Administration Pain 8 to 10 Hydrocodone Bitart/Acetaminophen 1 tab 08/09/22 21:56 08/16/22 21:33 Hydrocod/Acetam 5/325 Mg Tablet PO 1 tab Q4HR PRN Administration Pain 5 to 7 Carboxymethylcellulose 1 drops 08/10/22 01:01 08/17/22 05:14 Carboxymethylcellulose Ophth Drops EACHEYE 1 drops PRN PRN Administration Dry Eye Docusate Sodium 250 - 500 mg 08/10/22 21:00 08/17/22 08:12 Docusate Sodium 250 Mg Capsule PO Not Given DAILY ADRI Hydrochlorothiazide 25 mg 08/17/22 09:00 08/17/22 08:11 Hydrochlorothiazide 25 Mg Tablet PO 25 mg DAILY ADRI Administration Ceftriaxone Sodium 2 gm/ 100 mls @ 200 mls/hr 08/15/22 12:00 08/17/22 08:45 Sodium Chloride IV Infused DAILY ADRI Infusion Insulin Human Isoph/Insulin Regular 40 unit 08/15/22 09:00 08/17/22 09:37 Insulin 70/30 Human 300 Unit/3 Ml Vial SUBQ 40 unit DAILY ADRI Administration Insulin Human Lispro 3 - 11 unit 08/15/22 12:24 08/17/22 12:08 Insulin Lispro 300 Unit/3 Ml Pen SUBQ 5 unit 0800,1200,1700,2100 ADRI Administration Protocol Losartan Potassium 50 mg 08/10/22 09:00 08/17/22 08:11 Losartan 50 Mg Tablet PO 50 mg BID ADRI Administration Metformin HCl 500 mg 08/15/22 17:00 08/17/22 08:09 Metformin 500 Mg Tablet PO 500 mg BIDWM ADRI Administration Metoclopramide HCl 5 mg 08/11/22 22:37 08/11/22 23:00 Metoclopramide 10 Mg/2 Ml Vial IVP 5 mg Q6HR PRN Administration NEEDED PER PROVIDER ORDERS Metoprolol Tartrate 25 mg 08/10/22 09:00 08/17/22 08:11 Metoprolol Tartrate 25 Mg Tablet PO 25 mg BID ADRI Administration Multi-Ingredient Ointment 1 applic 08/13/22 18:12 08/13/22 18:46 Zinc Oxide 20% Oint 30 Gm Tube TOP 1 applic PRN PRN Administration Skin Care Multivitamins/Minerals 1 tab 08/15/22 09:00 08/17/22 08:09 Multivitamin W/Minerals Tablet PO 1 tab DAILYWM ADRI Administration Ondansetron HCl 4 mg 08/09/22 21:56 08/16/22 08:38 Ondansetron 4 Mg/2 Ml Vial IVP 4 mg Q6HR PRN Administration Nausea / Vomiting Pantoprazole Sodium 40 mg 08/10/22 07:00 08/17/22 06:39 Pantoprazole 40 Mg Tablet PO 40 mg QDAC ADRI Administration Polyethylene Glycol 17 gm 08/11/22 09:00 08/17/22 08:12 Polyethylene Glycol 3350 17 Gm Packet PO Not Given DAILY ADRI Senna 8.6 - 17.2 mg 08/14/22 09:00 08/17/22 08:12 Senna 8.6 Mg Tablet PO Not Given DAILY ADRI Sodium Chloride 10 ml 08/09/22 21:56 08/17/22 10:22 Sodium Chloride Flush 0.9% 10 Ml Syringe IVP 10 ml PRN PRN Administration NEEDED PER PROVIDER ORDERS Sodium Chloride 10 ml 08/10/22 01:00 08/17/22 08:17 Sodium Chloride Flush 0.9% 10 Ml Syringe IVP 10 ml 0100,0900,1700 [facility] Administration - Lab Result Fish Bone Diagrams: 08/17/22 05:09 08/16/22 04:34 - Additional Planning My Orders: My Active Orders 08/17/22 09:00 hydroCHLOROthiazide [Hydrodiuril] 25 mg PO DAILY 08/17/22 17:00 Insulin 70/30 Human [Humulin 70-30 Vial] 15 unit SUBQ 1700 08/18/22 05:00 BMP - BASIC METABOLIC PANEL [CHEM] DAILYLAB CBC - COMP BLD CT W/AUTO DIFF [HEME] DAILYLAB 08/19/22 05:00 BMP - BASIC METABOLIC PANEL [CHEM] DAILYLAB CBC - COMP BLD CT W/AUTO DIFF [HEME] DAILYLAB 08/20/22 05:00 BMP - BASIC METABOLIC PANEL [CHEM] DAILYLAB 08/21/22 05:00 BMP - BASIC METABOLIC PANEL [CHEM] DAILYLAB Subjective - Subjective Patient Reports: Other (The left leg feels overall better. The edema of both legs is actually increased since yesterday, despite HCTZ being resumed yesterday. He c/o pain deep in R ear, R upper outer ear and R sideof throat. No cough.) Objective Vital Signs: Vital Signs - 24 hr 08/16/22 08/16/22 08/16/22 15:56 16:01 21:33 Temperature 97.9 C H 36.8 C Heart Rate [ 80 82 Brachial] Respiratory 20 18 Rate Blood Pressure 124/69 Blood Pressure 139/62 H 130/60 [Right Brachial artery] O2 Saturation 97 99 08/17/22 08/17/22 08/17/22 00:42 08:00 08:11 Temperature 36.8 C 36.3 C L Heart Rate [ 77 72 Brachial] Respiratory 16 16 Rate Blood Pressure 130/70 Blood Pressure 116/59 L 130/70 [Right Brachial artery] O2 Saturation 99 100 Oxygen O2 Source Room air I&O (Last 24 Hrs): Intake and Output Totals x24h 08/15/22 08/16/22 08/17/22 23:59 23:59 23:59 Intake Total 3635 1500 760 Output Total 2105 675 225 Balance 1530 825 535 General: Alert, Oriented x3 HEENT: Atraumatic, Mucous membr. moist/pink, Other (R pharynx injected more than L, no tonsills) Neck: Supple Neuro: Alert, Other (SSens deficit of feet) Cardiovascular: No murmurs Respiratory: No respiratory distress Abdomen: Soft, Other (Obese) Extremities: Other (L foot redness down to ankles, L foot and all proximal toes are bandaged. Both legs have3+ edema to below knees.) - Results Results: Laboratory Results WBC 7.5 x10^3/uL (4.8-10.8) 08/17/22 05:09 RBC 3.67 10^6/uL (4.70-6.10) L 08/17/22 05:09 Hgb 9.5 g/dL (14.0-18.0) L 08/17/22 05:09 Hct 31.3 % (42.0-52.0) L 08/17/22 05:09 MCV 85.3 fL (80.0-94.0) 08/17/22 05:09 MCH 25.9 pg (27.0-31.0) L 08/17/22 05:09 MCHC 30.4 g/dL (32.0-36.0) L 08/17/22 05:09 RDW 14.5 % (12.0-15.0) 08/17/22 05:09 Plt Count 587 10^3/uL (130-450) H 08/17/22 05:09 MPV 9.3 fL (7.4-11.4) 08/17/22 05:09 Neut # (Auto) 5.0 10^3/uL (1.5-6.6) 08/17/22 05:09 Lymph # (Auto) 1.6 10^3/uL (1.5-3.5) 08/17/22 05:09 Wilkinson # (Auto) 0.6 10^3/uL (0.0-1.0) 08/17/22 05:09 Eos # (Auto) 0.2 10^3/uL (0.0-0.7) 08/17/22 05:09 Baso # (Auto) 0.0 10^3/uL (0.0-0.1) 08/17/22 05:09 Absolute Nucleated RBC 0.00 x10^3/uL 08/17/22 05:09 Total Counted 100 08/09/22 19:59 Band Neuts % (Manual) 2 % (0-10) 08/09/22 19:59 Abnorm Lymph % (Manual) 0 % 08/09/22 19:59 Nucleated RBC % 0.0 /100WBC 08/17/22 05:09 Neutrophils # (Manual) 18.7 10^3/uL (1.5-6.6) H 08/09/22 19:59 Lymphocytes # (Manual) 1.3 10^3/uL (1.5-3.5) L 08/09/22 19:59 Monocytes # (Manual) 1.3 10^3/uL (0.0-1.0) H 08/09/22 19:59 Eosinophils # (Manual) 0.0 10^3/uL (0-0.7) 08/09/22 19:59 Basophils # (Manual) 0.0 10^3/uL (0-0.1) 08/09/22 19:59 Differential Comment MANUAL DIFFERENTIAL 08/09/22 19:59 WBC Morphology 2+ TOXIC GRANULATION (NORMAL) 08/09/22 19:59 Platelet Estimate NORMAL (130-450,000) (NORMAL) 08/09/22 19:59 Platelet Morphology NORMAL APPEARANCE (NORMAL) 08/09/22 19:59 RBC Morph Micro Appear NORMAL APPEARANCE (NORMAL) 08/09/22 19:59 ESR 64 mm/Hr (0-15) H 08/09/22 19:59 Sodium 136 mmol/L (135-145) 08/16/22 04:34 Potassium 4.0 mmol/L (3.5-5.0) 08/16/22 04:34 Chloride 107 mmol/L (101-111) 08/16/22 04:34 Carbon Dioxide 21 mmol/L (21-32) 08/16/22 04:34 Anion Gap 8.0 (6-13) 08/16/22 04:34 BUN 19 mg/dL (6-20) 08/16/22 04:34 Creatinine 0.9 mg/dL (0.6-1.2) 08/16/22 04:34 Estimated GFR (MDRD) 94 (>89) 08/16/22 04:34 Glucose 133 mg/dL (70-100) H 08/16/22 04:34 POC Whole Bld Glucose 221 mg/dL (70 - 100) H 08/17/22 11:15 Estimat Average Glucose 298 mg/dL (70-100) H 08/10/22 06:26 Hemoglobin A1c % 12.0 % (4.27-6.07) H 08/10/22 06:26 Lactic Acid 1.4 mmol/L (0.5-2.2) 08/09/22 21:46 Calcium 7.8 mg/dL (8.5-10.3) L 08/16/22 04:34 Total Bilirubin 1.4 mg/dL (0.2-1.0) H 08/10/22 06:26 AST 22 IU/L (10-42) 08/10/22 06:26 ALT 21 IU/L (10-60) 08/10/22 06:26 Alkaline Phosphatase 113 IU/L (42-121) 08/10/22 06:26 C-Reactive Protein 19.4 mg/dL (0-1.0) H 08/14/22 05:53 Total Protein 6.6 g/dL (6.7-8.2) L 08/10/22 06:26 Albumin 2.7 g/dL (3.2-5.5) L 08/10/22 06:26 Globulin 3.9 g/dL (2.1-4.2) 08/10/22 06:26 Albumin/Globulin Ratio 0.7 (1.0-2.2) L 08/10/22 06:26 Triglycerides 136 mg/dL (-149) 08/10/22 06:26 Cholesterol 153 mg/dL (-199) 08/10/22 06:26 LDL Cholesterol, Calc 97 mg/dL (-129) 08/10/22 06:26 VLDL Cholesterol 27 mg/dL 08/10/22 06:26 HDL Cholesterol 29 mg/dL (60-) L 08/10/22 06:26 LDL/HDL Ratio 3.3 (<3.6) 08/10/22 06:26 Cholesterol/HDL Ratio 5.3 (<5.0) 08/10/22 06:26 Lipase 23 U/L (22-51) 08/09/22 19:59 Procalcitonin 0.84 ng/mL (<0.5) H 08/09/22 21:46 TSH 0.84 uIU/mL (0.34-5.60) 08/10/22 06:26 Urine Color DARK YELLOW 08/09/22 20:27 Urine Clarity CLEAR (CLEAR) 08/09/22 20:27 Urine pH 5.5 PH (5.0-7.5) 08/09/22 20:27 Ur Specific [place] 1.015 (1.002-1.030) 08/09/22 20:27 Urine Protein NEGATIVE mg/dL (NEGATIVE) 08/09/22 20:27 Urine Glucose (UA) >=1000 mg/dL (NEGATIVE) H 08/09/22 20:27 Urine Ketones TRACE mg/dL (NEGATIVE) 08/09/22 20:27 Urine Occult Blood TRACE-INTA (NEGATIVE) 08/09/22 20:27 Urine Nitrite NEGATIVE (NEGATIVE) 08/09/22 20:27 Urine Bilirubin SMALL (NEGATIVE) H 08/09/22 20:27 Urine Urobilinogen 2 E.U./dL (NORMAL) H 08/09/22 20:27 Ur Leukocyte Esterase NEGATIVE (NEGATIVE) 08/09/22 20:27 Ur Microscopic Review NOT INDICATED 08/09/22 20:27 Urine Culture Comments NOT INDICATED 08/09/22 20:27 Nasal Adenovirus (PCR) NOT DETECTED 08/09/22 20:27 Nasal B. parapertussis DNA (PCR) NOT DETECTED 08/09/22 20:27 Nasal Coronavir 229E PCR NOT DETECTED 08/09/22 20:27 Nasal Coronavir HKU1 PCR NOT DETECTED 08/09/22 20:27 Nasal Coronavir NL63 PCR NOT DETECTED 08/09/22 20:27 Nasal Coronavir OC43 PCR NOT DETECTED 08/09/22 20:27 Nasal Enterovir/Rhinovir PCR NOT DETECTED 08/09/22 20:27 Nasal Influenza B PCR NOT DETECTED 08/09/22 20:27 Nasal Influenza A PCR NOT DETECTED 08/09/22 20:27 Nasal Parainfluen 1 PCR NOT DETECTED 08/09/22 20:27 Nasal Parainfluen 2 PCR NOT DETECTED 08/09/22 20:27 Nasal Parainfluen 3 PCR NOT DETECTED 08/09/22 20:27 Nasal Parainfluen 4 PCR NOT DETECTED 08/09/22 20:27 Nasal RSV (PCR) NOT DETECTED 08/09/22 20:27 Nasal B.pertussis DNA PCR NOT DETECTED 08/09/22 20:27 Nasal C.pneumoniae (PCR) NOT DETECTED 08/09/22 20:27 Yannick Human Metapneumo PCR NOT DETECTED 08/09/22 20:27 Nasal M.pneumoniae (PCR) NOT DETECTED 08/09/22 20:27 Nasal SARS-CoV-2 (PCR) NOT DETECTED 08/09/22 20:27 Last Dose Date 08/14/2022 08/14/22 13:55 Last Dose Time 03308/14/22 13:55 Vancomycin Trough 16.6 ug/mL (10.0-20.0) 08/14/22 13:55 Sepsis Event Note (H) - Evaluation Current Stage of Sepsis: Ruled out
[2022-08-17] MEDS ORDERED: AZITHROMYCIN 250 MG TABLET PO STA (16:01)
[2022-08-17] MEDS: SACCHAROMYCES BOULARDII 250 MG CAPSULE PO SCH (16:28)
[2022-08-17 18:31] LABS: B. PARAPERTUSSIS- RESP PCR PAN NOT DETECTED; B. PERTUSSIS- RESP PCR PANEL NOT DETECTED; C. PNEUMONIAE- RESP PCR PANEL NOT DETECTED; CORONAVIRUS 229E-RESP PCR NOT DETECTED; CORONAVIRUS HKU1-RESP PCR NOT DETECTED; CORONAVIRUS NL63-RESP PCR NOT DETECTED; CORONAVIRUS OC43-RESP PCR NOT DETECTED; HUMAN METAPNEUMOVIRUS NOT DETECTED; INFLUENZA A- RESP PCR PANEL NOT DETECTED; INFLUENZA B - RESP PCR PANEL NOT DETECTED; M. PNEUMONIAE- RESP PCR PANEL NOT DETECTED; PARAINFLUENZA VIRUS 1 NOT DETECTED; PARAINFLUENZA VIRUS 2 NOT DETECTED; PARAINFLUENZA VIRUS 3 NOT DETECTED; PARAINFLUENZA VIRUS 4 NOT DETECTED; RHINOVIRUS/ENTEROVIRUS NOT DETECTED; RSV- RESP PCR PANEL NOT DETECTED; SARS-CoV-2 -RESP PCR PANEL NOT DETECTED
[2022-08-17] MEDS: HYDROcod/ACETAM 10 MG/325 MG TABLET PO PRN (20:47)
[2022-08-17] MEDS: ACETAMINOPHEN 325 MG TABLET PO PRN (23:35)
[2022-08-18 05:34] LABS: BASOPHILS % (AUTO) 0.3 %; EOSINOPHILS # (AUTO) 0.2 10^3/uL (0.0-0.7); EOSINOPHILS % (AUTO) 2.4 %; HCT - HEMATOCRIT 30.6 % (42.0-52.0); HGB - HEMOGLOBIN 9.3 g/dL (14.0-18.0); LYMPHOCYTES # (AUTO) 1.8 10^3/uL (1.5-3.5); LYMPHOCYTES % (AUTO) 24.4 %; MEAN CORPUSCULAR HEMOGLOBIN 26.3 pg (27.0-31.0); MEAN CORPUSCULAR HGB CONC 30.4 g/dL (32.0-36.0); MEAN CORPUSCULAR VOLUME 86.4 fL (80.0-94.0); MEAN PLATELET VOLUME 9.5 fL (7.4-11.4); MONOCYTES # (AUTO) 0.6 10^3/uL (0.0-1.0); MONOCYTES % (AUTO) 7.9 %; NEUTROPHILS # (AUTO) 4.9 10^3/uL (1.5-6.6); NEUTROPHILS % (AUTO) 64.6 %; PLT - PLATELET COUNT 625 10^3/uL (130-450); RED BLOOD COUNT 3.54 10^6/uL (4.70-6.10); RED CELL DISTRIBUTION WIDTH 14.1 % (12.0-15.0); WHITE BLOOD COUNT 7.5 x10^3/uL (4.8-10.8)
[2022-08-18 05:46] LABS: CALCIUM 8.2 mg/dL (8.5-10.3); MAGNESIUM 2.3 mg/dL (1.7-2.8); POTASSIUM 4.1 mmol/L (3.5-5.0)
[2022-08-18] MEDS: ACETAMINOPHEN 325 MG TABLET PO PRN (05:55)
[2022-08-18] MEDS: PANTOPRAZOLE 40 MG TABLET PO SCH (05:55)
[2022-08-18] MEDS ORDERED: FUROSEMIDE 20 MG/2 ML VIAL IVP STA (07:45)
[2022-08-18] MEDS: DOCUSATE SODIUM 250 MG CAPSULE PO SCH (07:50)
[2022-08-18] MEDS: polyethylene glycoL 3350 17 GM PACKET PO SCH (07:50)
[2022-08-18] MEDS: SENNA 8.6 MG TABLET PO SCH (07:51)
[2022-08-18] MEDS: INSULIN LISPRO 300 UNIT/3 ML PEN SUBQ SCH ×4 (08:16→20:56)
[2022-08-18] MEDS: INSULIN 70/30 HUMAN 300 UNIT/3 ML VIAL SUBQ SCH ×2 (08:17→16:48)
[2022-08-18] MEDS: METOPROLOL TARTRATE 25 MG TABLET PO SCH ×2 (08:19→20:55)
[2022-08-18] MEDS: LOSARTAN 50 MG TABLET PO SCH ×2 (08:19→20:55)
[2022-08-18] MEDS: metFORMIN 500 MG TABLET PO SCH ×2 (08:19→16:48)
[2022-08-18] MEDS: SACCHAROMYCES BOULARDII 250 MG CAPSULE PO SCH ×2 (08:19→16:48)
[2022-08-18] MEDS: MULTIVITAMIN W/MINERALS TABLET PO SCH (08:19)
[2022-08-18] MEDS: AZITHROMYCIN 250 MG TABLET PO SCH (08:19)
[2022-08-18] MEDS: hydroCHLOROthiazide 25 MG TABLET PO SCH (08:20)
[2022-08-18] MEDS: SODIUM CHLORIDE FLUSH 0.9% 10 ML SYRINGE IVP SCH ×2 (08:20→16:49)
[2022-08-18] MEDS: cefTRIAXone 2 GM in SODIUM CHLORIDE 0.9% MINIBAG 100 ML IV SCH (08:20)
[2022-08-18] MEDS: CARBOXYMETHYLCELLULOSE OPHTH DROPS EACHEYE PRN (08:22)
--- NOTE | 2022-08-18 13:18 | PROVIDER PROGRESS NOTE ---
Assessment/Plan - Problem List (1) Diabetic foot infection Assessment/Plan: All labs and his VS were reviewed. No fever since 08/10 and WBC has improved since antibx were started. Blood cultures are negative to date. No wound cultures were sent initially. On 08/13, Dr. Wren the wound sr technical sales consultant, did debridement and sent wound cultures then. That culture is growing beta-hemolytic group B Strep (usually pansensitive) and also Klebsiella oxytoca and now also identified to be growing Enterococcus faecalis. All 3 bacterial sensitivities were reviewed. PT had evaluated him and advised no-weight bearing, and to a walker. He feels no pain in the area with the cellulitis or the osteomyelitis. There was no lidocaine injections used when Dr. Wren did the debridement 08/13. The MRI showed areas suspicious for soft tissue abscess, areas consistent with cellulitis, and also septic arthritis and early osteomyelitis. An Orthopedic consult was done 08/14, and Dr Peterson agreed that he has cellulitis, with borders not yet defined, has septic arthritis and early osteo. Dr Peterson felt there was improvement, when he evaluated the foot on sequential days last week. Dr Peterson also saw him today 08/18, and recommended that he can be transitioned to oral antibiotics. Plan: Continue the dressing changes as per Ortho and Wound clinic providers. A spot on 08/19 in [facility] clinic at 0930 has been made for him to be revaluated. Continue antibiotics plus Florastor. A 2 week total course of treatment is planned. After today, he will have gotten 9 days of iv antibiotics, so another 5 days of oral antibiotics is planned. Will start Keflex po qid starting 08/19 Continue no weight bearing with the L foot. He will likely need a walker DME Appreciate recommendations from Wound service and from Ortho. Possible DCh home after the Wound Clinic appointment 08/19, or the following day. He will need an outpatient Ortho appointment and [facility] Wound clinic appointment for F/U after discharge. (2) Cellulitis of left foot Plan: As in #1 Once the cellulitis has resolved, further surgical intervention (of the ulcer or the bone) may be required, as per Ortho consult. (3) Septic arthritis As in #1 (4) Osteomyelitis Plan: As in #1 He will need an outpatient Ortho appointment for F/U after discharge. (5) Leg edema Until 08/16, the patient only had swelling of the left foot and wyatt. Since 08/16, we noticed obvious significant swelling of both ankles. He said he was on HCTZ at home and it was not being used here. That was because he needed iv fluids initially. We restrated HCTZ daily on 08/16. He also got Lasix 20 mg iv x1 yesterday 08/17, but was not in neg fluid balance yesterday, per I's and O's. Plan: Will give a dose of Lasix iv again today, follow I's and O's and his clinical exam. He may need more Lasix for several days after Dch. Continue his usual daily p.o. HCTZ Follow BMP and Mg daily Keep legs elevated when he is OOB in chair, as he is doing (6) Otitis, R side On 08/12, he complained of R throat pain pain with swallowing, and requested Reglan, which helped. On 08/17 the patient complained of right ear pain "deep inside", worsening hearing from "fullness" in R ear, pain of his outer upper R ear, and a sore throat on the right side. On exam on 08/17, his throat had erythema, he has no tonsills, there was no tenderness to tugging on the earlobe, (I had no otoscope to examine the canal and ear drum), and there was no lymphadenopathy of the neck. A viral PCR was sent and was unremarkable. A Z-bk was started yesterday 08/17. He feels better today Plan: Finish empiric treatment with a Z-Bk (7) Type 2 diabetes mellitus, uncontrolled, with hyperglycemia, with complications of diabetic foot infection, on long-term insulin His A1c came back at 12, but he has had this foot infection for several mos. He did admit he followed no strict diet. He took 50 units of 70/30 Insulin BID before admission. We have him on 20 units at night and 40 units in the morning plus mealtime 8U of Reg Insulin We had also restarted Metformin at 500 BID. All labs were reviewed. His glu levels are improving and on 08/16 he was even low (glu 99) before dinner. I stopped the mealtime 8 u of Reg Insulin, on 08/16 afternoon Plan: Cont the 40 U of 70/30 Insulin in the morning, and 20 U nighttime 70/30 Insulin Will increase the Metformin from 500 BID to 1000 BID Continue to encourage him to lose weight and to be more serious about his DM control and aim for an A1c of less than 7%, after the infection clears. (8) Diabetic neuropathy He feels no pain in the area with the cellulitis or the osteomyelitis. There was no lidocaine injections used when Dr. Wren did the debridement on 08/13, he said. Presumably, since he has no pain, he occaisionally forgets to practice no weight bearing on that L foot when he ambulates (to the bathroom). PT saw him and gave advice but no longer works with him. Plan: We will give reminders regarding weightbearing No neuropathy medications are indicated at this time (9) Difficulty swallowing solids Assessment/Plan: Improved On 08/12 pt was c/o a cough. A CXR showed no infiltrate. The next day he explained it was difficulty swallowing solid food and feeling as if it gets stuck in his upper esophagus. Pt apparently has this problem at home and takes Reglan for it. Pt specifically requested Reglan. Telemedicine night doctor ordered Reglan prn several nights ago. I suspected that he may have diabetic gastroparesis and poor GI motility. Since 08/17, with the c/o R ear pain, fullness and sore throat R side, that swallowing trouble may have been a URI starting. Plan: Continue the order for prn Reglan No indication for an EGD at this time and we have no flouroscopy at this hospital to do a swallowing study (10) Morbid obesity BMI 50-59.9 As per Hx, his BMI is 51.6 today. This complicates his care. (11) Hypokalemia. Plan: Supplement with oral potassium when K low, and follow BMP daily - Current Meds Current Meds: Current Medications Generic Name Dose Route Start Last Admin Trade Name Freq PRN Reason Stop Dose Admin Acetaminophen 650 mg 08/09/22 21:56 08/18/22 05:55 Acetaminophen 325 Mg Tablet PO 650 mg Q4HR PRN Administration Pain 1 to 4, or Fever Hydrocodone Bitart/Acetaminophen 1 tab 08/09/22 21:56 08/17/22 20:47 Hydrocod/Acetam 10 Mg/325 Mg Tablet PO 1 tab Q4HR PRN Administration Pain 8 to 10 Hydrocodone Bitart/Acetaminophen 1 tab 08/09/22 21:56 08/16/22 21:33 Hydrocod/Acetam 5/325 Mg Tablet PO 1 tab Q4HR PRN Administration Pain 5 to 7 Azithromycin 250 mg 08/18/22 09:00 08/18/22 08:19 Azithromycin 250 Mg Tablet PO 08/22/22 00:01 250 mg DAILY ADRI Administration Carboxymethylcellulose 1 drops 08/10/22 01:01 08/18/22 08:22 Carboxymethylcellulose Ophth Drops EACHEYE 1 drops PRN PRN Administration Dry Eye Docusate Sodium 250 - 500 mg 08/10/22 21:00 08/18/22 07:50 Docusate Sodium 250 Mg Capsule PO Not Given DAILY ADRI Hydrochlorothiazide 25 mg 08/17/22 09:00 08/18/22 08:20 Hydrochlorothiazide 25 Mg Tablet PO 25 mg DAILY ADRI Administration Ceftriaxone Sodium 2 gm/ 100 mls @ 200 mls/hr 08/15/22 12:00 08/18/22 08:50 Sodium Chloride IV 08/18/22 23:00 Infused DAILY ADRI Infusion Insulin Human Isoph/Insulin Regular 40 unit 08/15/22 09:00 08/18/22 08:17 Insulin 70/30 Human 300 Unit/3 Ml Vial SUBQ 40 unit DAILY ADRI Administration Insulin Human Isoph/Insulin Regular 15 unit 08/17/22 17:00 08/17/22 16:56 Insulin 70/30 Human 300 Unit/3 Ml Vial SUBQ 15 unit 1700 ADRI Administration Insulin Human Lispro 3 - 11 unit 08/15/22 12:24 08/18/22 11:59 Insulin Lispro 300 Unit/3 Ml Pen SUBQ 5 unit 0800,1200,1700,2100 ADRI Administration Protocol Losartan Potassium 50 mg 08/10/22 09:00 08/18/22 08:19 Losartan 50 Mg Tablet PO 50 mg BID ADRI Administration Metoclopramide HCl 5 mg 08/11/22 22:37 08/11/22 23:00 Metoclopramide 10 Mg/2 Ml Vial IVP 5 mg Q6HR PRN Administration NEEDED PER PROVIDER ORDERS Metoprolol Tartrate 25 mg 08/10/22 09:00 08/18/22 08:19 Metoprolol Tartrate 25 Mg Tablet PO 25 mg BID ADRI Administration Multi-Ingredient Ointment 1 applic 08/13/22 18:12 08/13/22 18:46 Zinc Oxide 20% Oint 30 Gm Tube TOP 1 applic PRN PRN Administration Skin Care Multivitamins/Minerals 1 tab 08/15/22 09:00 08/18/22 08:19 Multivitamin W/Minerals Tablet PO 1 tab DAILYWM ADRI Administration Ondansetron HCl 4 mg 08/09/22 21:56 08/16/22 08:38 Ondansetron 4 Mg/2 Ml Vial IVP 4 mg Q6HR PRN Administration Nausea / Vomiting Pantoprazole Sodium 40 mg 08/10/22 07:00 08/18/22 05:55 Pantoprazole 40 Mg Tablet PO 40 mg QDAC ADRI Administration Polyethylene Glycol 17 gm 08/11/22 09:00 08/18/22 07:50 Polyethylene Glycol 3350 17 Gm Packet PO Not Given DAILY ADRI Saccharomyces Boulardii 250 mg 08/17/22 17:00 08/18/22 08:19 Saccharomyces Boulardii 250 Mg Capsule PO 250 mg BIDWM ADRI Administration Senna 8.6 - 17.2 mg 08/14/22 09:00 08/18/22 07:51 Senna 8.6 Mg Tablet PO Not Given DAILY ADRI Sodium Chloride 10 ml 08/09/22 21:56 08/17/22 10:22 Sodium Chloride Flush 0.9% 10 Ml Syringe IVP 10 ml PRN PRN Administration NEEDED PER PROVIDER ORDERS Sodium Chloride 10 ml 08/10/22 01:00 08/18/22 08:20 Sodium Chloride Flush 0.9% 10 Ml Syringe IVP 10 ml 0100,0900,1700 ADRI Administration Throat Lozenges 1 lozenge 08/10/22 01:01 08/17/22 16:28 Benzocaine/Menthol Lozenge MM 1 lozenge Q2HR PRN Administration Throat pain - Lab Result Fish Bone Diagrams: 08/18/22 04:43 08/18/22 04:43 - Additional Planning My Orders: My Active Orders 08/17/22 17:00 Insulin 70/30 Human [Humulin 70-30 Vial] 15 unit SUBQ 1700 Saccharomyces Boulardii [Florastor] 250 mg PO BIDWM 08/18/22 09:00 Azithromycin [Zithromax] 250 mg PO DAILY 08/18/22 17:00 metFORMIN [Glucophage] 1,000 mg PO BIDWM 08/19/22 05:00 BMP - BASIC METABOLIC PANEL [CHEM] DAILYLAB CBC - COMP BLD CT W/AUTO DIFF [HEME] DAILYLAB 08/19/22 06:00 cephALEXin [Keflex] 500 mg PO Q6HR 08/20/22 05:00 BMP - BASIC METABOLIC PANEL [CHEM] DAILYLAB 08/21/22 05:00 BMP - BASIC METABOLIC PANEL [CHEM] DAILYLAB Subjective - Subjective Patient Reports: Feeling Better (Left foot is elevated on a chair in front of him supported on a pillow. His leg edema still persists however it is tense. The right ear pain has improved (was started on oral antibiotics yesterday)), Resting Comfortably Objective Vital Signs: Vital Signs - 24 hr 08/17/22 08/17/22 08/17/22 16:00 20:45 23:24 Temperature 36.8 C 36.9 C Heart Rate [ 63 75 Brachial] Respiratory 18 16 Rate Blood Pressure 133/65 H Blood Pressure 134/65 H 113/54 L [Right Brachial artery] O2 Saturation 98 99 08/18/22 08/18/22 07:34 08:19 Temperature 36.3 C L Heart Rate [ 61 Brachial] Respiratory 21 Rate Blood Pressure 130/72 Blood Pressure 130/72 [Right Brachial artery] O2 Saturation 100 Oxygen O2 Source Room air I&O (Last 24 Hrs): Intake and Output Totals x24h 08/16/22 08/17/22 08/18/22 23:59 23:59 23:59 Intake Total 1500 1760 890 Output Total 675 225 500 Balance 825 1535 390 General: Alert, Oriented x3 HEENT: Mucous membr. moist/pink, Other (No ear tenderness) Neuro: Alert, Other (sens loss of both feet) Cardiovascular: Regular rate, No murmurs Respiratory: No respiratory distress, Breath sounds nml Abdomen: Normal bowel sounds, Soft, Other (Obese) Extremities: Other (2+ tense edema of both ankles to mid shins. L foot and toes are bandaged.) - Results Results: Laboratory Results WBC 7.5 x10^3/uL (4.8-10.8) 08/18/22 04:43 RBC 3.54 10^6/uL (4.70-6.10) L 08/18/22 04:43 Hgb 9.3 g/dL (14.0-18.0) L 08/18/22 04:43 Hct 30.6 % (42.0-52.0) L 08/18/22 04:43 MCV 86.4 fL (80.0-94.0) 08/18/22 04:43 MCH 26.3 pg (27.0-31.0) L 08/18/22 04:43 MCHC 30.4 g/dL (32.0-36.0) L 08/18/22 04:43 RDW 14.1 % (12.0-15.0) 08/18/22 04:43 Plt Count 625 10^3/uL (130-450) H 08/18/22 04:43 MPV 9.5 fL (7.4-11.4) 08/18/22 04:43 Neut # (Auto) 4.9 10^3/uL (1.5-6.6) 08/18/22 04:43 Lymph # (Auto) 1.8 10^3/uL (1.5-3.5) 08/18/22 04:43 [place] # (Auto) 0.6 10^3/uL (0.0-1.0) 08/18/22 04:43 Eos # (Auto) 0.2 10^3/uL (0.0-0.7) 08/18/22 04:43 Baso # (Auto) 0.0 10^3/uL (0.0-0.1) 08/18/22 04:43 Absolute Nucleated RBC 0.00 x10^3/uL 08/18/22 04:43 Total Counted 100 08/09/22 19:59 Band Neuts % (Manual) 2 % (0-10) 08/09/22 19:59 Abnorm Lymph % (Manual) 0 % 08/09/22 19:59 Nucleated RBC % 0.0 /100WBC 08/18/22 04:43 Neutrophils # (Manual) 18.7 10^3/uL (1.5-6.6) H 08/09/22 19:59 Lymphocytes # (Manual) 1.3 10^3/uL (1.5-3.5) L 08/09/22 19:59 Monocytes # (Manual) 1.3 10^3/uL (0.0-1.0) H 08/09/22 19:59 Eosinophils # (Manual) 0.0 10^3/uL (0-0.7) 08/09/22 19:59 Basophils # (Manual) 0.0 10^3/uL (0-0.1) 08/09/22 19:59 Differential Comment MANUAL DIFFERENTIAL 08/09/22 19:59 WBC Morphology 2+ TOXIC GRANULATION (NORMAL) 08/09/22 19:59 Platelet Estimate NORMAL (130-450,000) (NORMAL) 08/09/22 19:59 Platelet Morphology NORMAL APPEARANCE (NORMAL) 08/09/22 19:59 RBC Morph Micro Appear NORMAL APPEARANCE (NORMAL) 08/09/22 19:59 ESR 64 mm/Hr (0-15) H 08/09/22 19:59 Sodium 137 mmol/L (135-145) 08/18/22 04:43 Potassium 4.1 mmol/L (3.5-5.0) 08/18/22 04:43 Chloride 103 mmol/L (101-111) 08/18/22 04:43 Carbon Dioxide 27 mmol/L (21-32) 08/18/22 04:43 Anion Gap 7.0 (6-13) 08/18/22 04:43 BUN 23 mg/dL (6-20) H 08/18/22 04:43 Creatinine 1.0 mg/dL (0.6-1.2) 08/18/22 04:43 Estimated GFR (MDRD) 83 (>89) L 08/18/22 04:43 Glucose 144 mg/dL (70-100) H 08/18/22 04:43 POC Whole Bld Glucose 219 mg/dL (70 - 100) H 08/18/22 11:23 Estimat Average Glucose 298 mg/dL (70-100) H 08/10/22 06:26 Hemoglobin A1c % 12.0 % (4.27-6.07) H 08/10/22 06:26 Lactic Acid 1.4 mmol/L (0.5-2.2) 08/09/22 21:46 Calcium 8.2 mg/dL (8.5-10.3) L 08/18/22 04:43 Magnesium 2.3 mg/dL (1.7-2.8) 08/18/22 04:43 Total Bilirubin 1.4 mg/dL (0.2-1.0) H 08/10/22 06:26 AST 22 IU/L (10-42) 08/10/22 06:26 ALT 21 IU/L (10-60) 08/10/22 06:26 Alkaline Phosphatase 113 IU/L (42-121) 08/10/22 06:26 C-Reactive Protein 19.4 mg/dL (0-1.0) H 08/14/22 05:53 Total Protein 6.6 g/dL (6.7-8.2) L 08/10/22 06:26 Albumin 2.7 g/dL (3.2-5.5) L 08/10/22 06:26 Globulin 3.9 g/dL (2.1-4.2) 08/10/22 06:26 Albumin/Globulin Ratio 0.7 (1.0-2.2) L 08/10/22 06:26 Triglycerides 136 mg/dL (-149) 08/10/22 06:26 Cholesterol 153 mg/dL (-199) 08/10/22 06:26 LDL Cholesterol, Calc 97 mg/dL (-129) 08/10/22 06:26 VLDL Cholesterol 27 mg/dL 08/10/22 06:26 HDL Cholesterol 29 mg/dL (60-) L 08/10/22 06:26 LDL/HDL Ratio 3.3 (<3.6) 08/10/22 06:26 Cholesterol/HDL Ratio 5.3 (<5.0) 08/10/22 06:26 Lipase 23 U/L (22-51) 08/09/22 19:59 Procalcitonin 0.84 ng/mL (<0.5) H 08/09/22 21:46 TSH 0.84 uIU/mL (0.34-5.60) 08/10/22 06:26 Urine Color DARK YELLOW 08/09/22 20:27 Urine Clarity CLEAR (CLEAR) 08/09/22 20:27 Urine pH 5.5 PH (5.0-7.5) 08/09/22 20:27 Ur Specific [place] 1.015 (1.002-1.030) 08/09/22 20:27 Urine Protein NEGATIVE mg/dL (NEGATIVE) 08/09/22 20:27 Urine Glucose (UA) >=1000 mg/dL (NEGATIVE) H 08/09/22 20:27 Urine Ketones TRACE mg/dL (NEGATIVE) 08/09/22 20:27 Urine Occult Blood TRACE-INTA (NEGATIVE) 08/09/22 20:27 Urine Nitrite NEGATIVE (NEGATIVE) 08/09/22 20:27 Urine Bilirubin SMALL (NEGATIVE) H 08/09/22 20:27 Urine Urobilinogen 2 E.U./dL (NORMAL) H 08/09/22 20:27 Ur Leukocyte Esterase NEGATIVE (NEGATIVE) 08/09/22 20:27 Ur Microscopic Review NOT INDICATED 08/09/22 20:27 Urine Culture Comments NOT INDICATED 08/09/22 20:27 Nasal Adenovirus (PCR) NOT DETECTED 08/17/22 16:30 Nasal B. parapertussis DNA (PCR) NOT DETECTED 08/17/22 16:30 Nasal Coronavir 229E PCR NOT DETECTED 08/17/22 16:30 Nasal Coronavir HKU1 PCR NOT DETECTED 08/17/22 16:30 Nasal Coronavir NL63 PCR NOT DETECTED 08/17/22 16:30 Nasal Coronavir OC43 PCR NOT DETECTED 08/17/22 16:30 Nasal Enterovir/Rhinovir PCR NOT DETECTED 08/17/22 16:30 Nasal Influenza B PCR NOT DETECTED 08/17/22 16:30 Nasal Influenza A PCR NOT DETECTED 08/17/22 16:30 Nasal Parainfluen 1 PCR NOT DETECTED 08/17/22 16:30 Nasal Parainfluen 2 PCR NOT DETECTED 08/17/22 16:30 Nasal Parainfluen 3 PCR NOT DETECTED 08/17/22 16:30 Nasal Parainfluen 4 PCR NOT DETECTED 08/17/22 16:30 Nasal RSV (PCR) NOT DETECTED 08/17/22 16:30 Nasal B.pertussis DNA PCR NOT DETECTED 08/17/22 16:30 Nasal C.pneumoniae (PCR) NOT DETECTED 08/17/22 16:30 Yannick Human Metapneumo PCR NOT DETECTED 08/17/22 16:30 Nasal M.pneumoniae (PCR) NOT DETECTED 08/17/22 16:30 Nasal SARS-CoV-2 (PCR) NOT DETECTED 08/17/22 16:30 Last Dose Date 08/14/2022 08/14/22 13:55 Last Dose Time 0336 08/14/22 13:55 Vancomycin Trough 16.6 ug/mL (10.0-20.0) 02/09/23 13:55 Sepsis Event Note (H) - Evaluation Current Stage of Sepsis: Ruled out
--- NOTE | 2022-08-18 13:44 | PROVIDER PROGRESS NOTE ---
Subjective - General Admit Date: 08/09/22 - Review of Systems General: positive: No symptoms - Other Other Information/Narrative: Patient is in good spirits today. He is pleasant. He reports that his left foot is feeling much better. He has been receiving intravenous antibiotics, general medical care to support his diabetes and other medical issues, wound care and orthopedics for his diabetic left foot infection associated with neurop athy.His cultures were positive and has been on a cephalosporin. He denies fever or chills. Objective - Patient Data Vital Signs: Vital Signs x48h Temp Pulse Resp BP BP Pulse Ox 08/18/22 08:19 130/72 08/18/22 07:34 36.3 C L 61 21 130/72 100 Intake & Output: Intake and Output Totals x24h 08/16/22 08/17/22 08/18/22 23:59 23:59 23:59 Intake Total 1500 1760 890 Output Total 675 225 500 Balance 825 1535 390 - Lab Results Lab Results: 08/18/22 04:43 08/18/22 04:43 Other Lab Results: Lab Results x24hrs 08/18/22 08/18/22 08/18/22 Range/Units 11:23 07:31 04:43 WBC (4.8-10.8) x10^3/uL RBC (4.70-6.10) 10^6/uL Hgb (14.0-18.0) g/dL Hct (42.0-52.0) % MCV (80.0-94.0) fL MCH (27.0-31.0) pg MCHC (32.0-36.0) g/dL RDW (12.0-15.0) % Plt Count (130-450) 10^3/uL MPV (7.4-11.4) fL Neut # (Auto) (1.5-6.6) 10^3/uL Lymph # (Auto) (1.5-3.5) 10^3/uL [place] # (Auto) (0.0-1.0) 10^3/uL Eos # (Auto) (0.0-0.7) 10^3/uL Baso # (Auto) (0.0-0.1) 10^3/uL Absolute Nucleated RBC x10^3/uL Nucleated RBC % /100WBC Sodium 137 (135-145) mmol/L Potassium 4.1 (3.5-5.0) mmol/L Chloride 103 (101-111) mmol/L Carbon Dioxide 27 (21-32) mmol/L Anion Gap 7.0 (6-13) BUN 23 H (6-20) mg/dL Creatinine 1.0 (0.6-1.2) mg/dL Estimated GFR (MDRD) 83 L (>89) Glucose 144 H (70-100) mg/dL POC Whole Bld Glucose 219 H 159 H (70 - 100) mg/dL Calcium 8.2 L (8.5-10.3) mg/dL Magnesium 2.3 (1.7-2.8) mg/dL Nasal Adenovirus (PCR) Nasal B. parapertussis DNA (PCR) Nasal Coronavir 229E PCR Nasal Coronavir HKU1 PCR Nasal Coronavir NL63 PCR Nasal Coronavir OC43 PCR Nasal Enterovir/Rhinovir PCR Nasal Influenza B PCR Nasal Influenza A PCR Nasal Parainfluen 1 PCR Nasal Parainfluen 2 PCR Nasal Parainfluen 3 PCR Nasal Parainfluen 4 PCR Nasal RSV (PCR) Nasal B.pertussis DNA PCR Nasal C.pneumoniae (PCR) Yannick Human Metapneumo PCR Nasal M.pneumoniae (PCR) Nasal SARS-CoV-2 (PCR) 08/18/22 08/17/22 08/17/22 Range/Units 04:43 20:37 16:35 WBC 7.5 (4.8-10.8) x10^3/uL RBC 3.54 L (4.70-6.10) 10^6/uL Hgb 9.3 L (14.0-18.0) g/dL Hct 30.6 L (42.0-52.0) % MCV 86.4 (80.0-94.0) fL MCH 26.3 L (27.0-31.0) pg MCHC 30.4 L (32.0-36.0) g/dL RDW 14.1 (12.0-15.0) % Plt Count 625 H (130-450) 10^3/uL MPV 9.5 (7.4-11.4) fL Neut # (Auto) 4.9 (1.5-6.6) 10^3/uL Lymph # (Auto) 1.8 (1.5-3.5) 10^3/uL [place] # (Auto) 0.6 (0.0-1.0) 10^3/uL Eos # (Auto) 0.2 (0.0-0.7) 10^3/uL Baso # (Auto) 0.0 (0.0-0.1) 10^3/uL Absolute Nucleated RBC 0.00 x10^3/uL Nucleated RBC % 0.0 /100WBC Sodium (135-145) mmol/L Potassium (3.5-5.0) mmol/L Chloride (101-111) mmol/L Carbon Dioxide (21-32) mmol/L Anion Gap (6-13) BUN (6-20) mg/dL Creatinine (0.6-1.2) mg/dL Estimated GFR (MDRD) (>89) Glucose (70-100) mg/dL POC Whole Bld Glucose 113 H 145 H (70 - 100) mg/dL Calcium (8.5-10.3) mg/dL Magnesium (1.7-2.8) mg/dL Nasal Adenovirus (PCR) Nasal B. parapertussis DNA (PCR) Nasal Coronavir 229E PCR Nasal Coronavir HKU1 PCR Nasal Coronavir NL63 PCR Nasal Coronavir OC43 PCR Nasal Enterovir/Rhinovir PCR Nasal Influenza B PCR Nasal Influenza A PCR Nasal Parainfluen 1 PCR Nasal Parainfluen 2 PCR Nasal Parainfluen 3 PCR Nasal Parainfluen 4 PCR Nasal RSV (PCR) Nasal B.pertussis DNA PCR Nasal C.pneumoniae (PCR) Yannick Human Metapneumo PCR Nasal M.pneumoniae (PCR) Nasal SARS-CoV-2 (PCR) 08/17/22 Range/Units 16:30 WBC (4.8-10.8) x10^3/uL RBC (4.70-6.10) 10^6/uL Hgb (14.0-18.0) g/dL Hct (42.0-52.0) % MCV (80.0-94.0) fL MCH (27.0-31.0) pg MCHC (32.0-36.0) g/dL RDW (12.0-15.0) % Plt Count (130-450) 10^3/uL MPV (7.4-11.4) fL Neut # (Auto) (1.5-6.6) 10^3/uL Lymph # (Auto) (1.5-3.5) 10^3/uL [place] # (Auto) (0.0-1.0) 10^3/uL Eos # (Auto) (0.0-0.7) 10^3/uL Baso # (Auto) (0.0-0.1) 10^3/uL Absolute Nucleated RBC x10^3/uL Nucleated RBC % /100WBC Sodium (135-145) mmol/L Potassium (3.5-5.0) mmol/L Chloride (101-111) mmol/L Carbon Dioxide (21-32) mmol/L Anion Gap (6-13) BUN (6-20) mg/dL Creatinine (0.6-1.2) mg/dL Estimated GFR (MDRD) (>89) Glucose (70-100) mg/dL POC Whole Bld Glucose (70 - 100) mg/dL Calcium (8.5-10.3) mg/dL Magnesium (1.7-2.8) mg/dL Nasal Adenovirus (PCR) NOT DETECTED Nasal B. parapertussis DNA (PCR) NOT DETECTED Nasal Coronavir 229E PCR NOT DETECTED Nasal Coronavir HKU1 PCR NOT DETECTED Nasal Coronavir NL63 PCR NOT DETECTED Nasal Coronavir OC43 PCR NOT DETECTED Nasal Enterovir/Rhinovir PCR NOT DETECTED Nasal Influenza B PCR NOT DETECTED Nasal Influenza A PCR NOT DETECTED Nasal Parainfluen 1 PCR NOT DETECTED Nasal Parainfluen 2 PCR NOT DETECTED Nasal Parainfluen 3 PCR NOT DETECTED Nasal Parainfluen 4 PCR NOT DETECTED Nasal RSV (PCR) NOT DETECTED Nasal B.pertussis DNA PCR NOT DETECTED Nasal C.pneumoniae (PCR) NOT DETECTED Yannick Human Metapneumo PCR NOT DETECTED Nasal M.pneumoniae (PCR) NOT DETECTED Nasal SARS-CoV-2 (PCR) NOT DETECTED - Current Medications Current Medications: Current Medications Generic Name Dose Route Start Last Admin Trade Name Freq PRN Reason Stop Dose Admin Acetaminophen 650 mg 08/09/22 21:56 08/18/22 05:55 Acetaminophen 325 Mg Tablet PO 650 mg Q4HR PRN Administration Pain 1 to 4, or Fever Hydrocodone Bitart/Acetaminophen 1 tab 08/09/22 21:56 08/17/22 20:47 Hydrocod/Acetam 10 Mg/325 Mg Tablet PO 1 tab Q4HR PRN Administration Pain 8 to 10 Hydrocodone Bitart/Acetaminophen 1 tab 08/09/22 21:56 08/16/22 21:33 Hydrocod/Acetam 5/325 Mg Tablet PO 1 tab Q4HR PRN Administration Pain 5 to 7 Azithromycin 250 mg 08/18/22 09:00 08/18/22 08:19 Azithromycin 250 Mg Tablet PO 08/22/22 00:01 250 mg DAILY ADRI Administration Carboxymethylcellulose 1 drops 08/10/22 01:01 08/18/22 08:22 Carboxymethylcellulose Ophth Drops EACHEYE 1 drops PRN PRN Administration Dry Eye Docusate Sodium 250 - 500 mg 08/10/22 21:00 08/18/22 07:50 Docusate Sodium 250 Mg Capsule PO Not Given DAILY ADRI Hydrochlorothiazide 25 mg 08/17/22 09:00 08/18/22 08:20 Hydrochlorothiazide 25 Mg Tablet PO 25 mg DAILY ADRI Administration Ceftriaxone Sodium 2 gm/ 100 mls @ 200 mls/hr 08/15/22 12:00 08/18/22 08:50 Sodium Chloride IV 08/18/22 23:00 Infused DAILY ADRI Infusion Insulin Human Isoph/Insulin Regular 40 unit 08/15/22 09:00 08/18/22 08:17 Insulin 70/30 Human 300 Unit/3 Ml Vial SUBQ 40 unit DAILY ADRI Administration Insulin Human Isoph/Insulin Regular 15 unit 08/17/22 17:00 08/17/22 16:56 Insulin 70/30 Human 300 Unit/3 Ml Vial SUBQ 15 unit 1700 ADRI Administration Insulin Human Lispro 3 - 11 unit 08/15/22 12:24 08/18/22 11:59 Insulin Lispro 300 Unit/3 Ml Pen SUBQ 5 unit 0800,1200,1700,2100 ADRI Administration Protocol Losartan Potassium 50 mg 08/10/22 09:00 08/18/22 08:19 Losartan 50 Mg Tablet PO 50 mg BID ADRI Administration Metoclopramide HCl 5 mg 08/11/22 22:37 08/11/22 23:00 Metoclopramide 10 Mg/2 Ml Vial IVP 5 mg Q6HR PRN Administration NEEDED PER PROVIDER ORDERS Metoprolol Tartrate 25 mg 08/10/22 09:00 08/18/22 08:19 Metoprolol Tartrate 25 Mg Tablet PO 25 mg BID ADRI Administration Multi-Ingredient Ointment 1 applic 08/13/22 18:12 08/13/22 18:46 Zinc Oxide 20% Oint 30 Gm Tube TOP 1 applic PRN PRN Administration Skin Care Multivitamins/Minerals 1 tab 08/15/22 09:00 08/18/22 08:19 Multivitamin W/Minerals Tablet PO 1 tab DAILYWM ADRI Administration Ondansetron HCl 4 mg 08/09/22 21:56 08/16/22 08:38 Ondansetron 4 Mg/2 Ml Vial IVP 4 mg Q6HR PRN Administration Nausea / Vomiting Pantoprazole Sodium 40 mg 08/10/22 07:00 08/18/22 05:55 Pantoprazole 40 Mg Tablet PO 40 mg QDAC ADRI Administration Polyethylene Glycol 17 gm 08/11/22 09:00 08/18/22 07:50 Polyethylene Glycol 3350 17 Gm Packet PO Not Given DAILY ADRI Saccharomyces Boulardii 250 mg 08/17/22 17:00 08/18/22 08:19 Saccharomyces Boulardii 250 Mg Capsule PO 250 mg BIDWM ADRI Administration Senna 8.6 - 17.2 mg 08/14/22 09:00 08/18/22 07:51 Senna 8.6 Mg Tablet PO Not Given DAILY ADRI Sodium Chloride 10 ml 08/09/22 21:56 08/17/22 10:22 Sodium Chloride Flush 0.9% 10 Ml Syringe IVP 10 ml PRN PRN Administration NEEDED PER PROVIDER ORDERS Sodium Chloride 10 ml 08/10/22 01:00 08/18/22 08:20 Sodium Chloride Flush 0.9% 10 Ml Syringe IVP 10 ml 0100,0900,1700 ADRI Administration Throat Lozenges 1 lozenge 08/10/22 01:01 08/17/22 16:28 Benzocaine/Menthol Lozenge MM 1 lozenge Q2HR PRN Administration Throat pain - Physical Exam Comments/Other: It is decreased compared to our previous evaluation. The swelling to his left foot has decreased. The 2 wounds do not show any purulent drainage to the left foot. There is not any granulation tissue present to either ulcer. There is some superficial necrosis to both ulcers which were gently debrided with a cotton tip to stimulate some bleeding. There is serous drainage into the dressing. Cellulitis appears resolved. Impression/Plan - Problem List Problem List: Diabetic foot infection with mostly soft tissue infection, possible bone and joint involvement that is improving. The plan will be antibiotics for at least 6 weeks, could be safely transferred to oral antibiotics as discussed. You need to continue local wound care and evaluation by orthopedist jointly. I would recommend nonweightbearing on left foot until swelling and soft tissues allow either boot walker or preferably total contact casting. He needs to keep the left foot and leg elevated is much as possible. He will also need follow-up x-rays in the office to evaluate for septic arthritis and osteomyelitis. He will need someone on the outpatient services to follow his diabetes. I would like to recheck him in the office next week.
[2022-08-18] MEDS: HYDROcod/ACETAM 5/325 MG TABLET PO PRN (16:51)
[2022-08-19 05:51] LABS: BASOPHILS % (AUTO) 0.5 %; EOSINOPHILS # (AUTO) 0.2 10^3/uL (0.0-0.7); EOSINOPHILS % (AUTO) 2.4 %; HCT - HEMATOCRIT 33.2 % (42.0-52.0); LYMPHOCYTES # (AUTO) 1.5 10^3/uL (1.5-3.5); LYMPHOCYTES % (AUTO) 16.6 %; MEAN CORPUSCULAR HEMOGLOBIN 25.2 pg (27.0-31.0); MEAN CORPUSCULAR HGB CONC 30.1 g/dL (32.0-36.0); MEAN CORPUSCULAR VOLUME 83.6 fL (80.0-94.0); MEAN PLATELET VOLUME 9.2 fL (7.4-11.4); MONOCYTES # (AUTO) 0.5 10^3/uL (0.0-1.0); MONOCYTES % (AUTO) 6.1 %; NEUTROPHILS # (AUTO) 6.6 10^3/uL (1.5-6.6); NEUTROPHILS % (AUTO) 73.8 %; PLT - PLATELET COUNT 658 10^3/uL (130-450); RED BLOOD COUNT 3.97 10^6/uL (4.70-6.10); RED CELL DISTRIBUTION WIDTH 13.7 % (12.0-15.0); WHITE BLOOD COUNT 8.9 x10^3/uL (4.8-10.8)
[2022-08-19 06:07] LABS: CALCIUM 8.8 mg/dL (8.5-10.3); POTASSIUM 4.4 mmol/L (3.5-5.0)
[2022-08-19] MEDS: SODIUM CHLORIDE FLUSH 0.9% 10 ML SYRINGE IVP SCH ×4 (06:30→21:10)
[2022-08-19] MEDS: cephALEXin 250 MG CAPSULE PO SCH ×3 (06:30→17:50)
[2022-08-19] MEDS: PANTOPRAZOLE 40 MG TABLET PO SCH (06:35)
[2022-08-19] MEDS: INSULIN LISPRO 300 UNIT/3 ML PEN SUBQ SCH ×4 (08:05→21:07)
[2022-08-19] MEDS: MULTIVITAMIN W/MINERALS TABLET PO SCH (08:05)
[2022-08-19] MEDS: SACCHAROMYCES BOULARDII 250 MG CAPSULE PO SCH ×2 (08:05→17:51)
[2022-08-19] MEDS: metFORMIN 500 MG TABLET PO SCH ×2 (08:05→17:50)
[2022-08-19] MEDS: INSULIN 70/30 HUMAN 300 UNIT/3 ML VIAL SUBQ SCH ×2 (08:12→17:53)
[2022-08-19] MEDS: hydroCHLOROthiazide 25 MG TABLET PO SCH (09:00)
[2022-08-19] MEDS: LOSARTAN 50 MG TABLET PO SCH ×2 (09:00→21:05)
[2022-08-19] MEDS: METOPROLOL TARTRATE 25 MG TABLET PO SCH ×2 (09:00→21:04)
[2022-08-19] MEDS: AZITHROMYCIN 250 MG TABLET PO SCH (09:03)
--- NOTE | 2022-08-19 11:22 | Discharge Plan ---
Discharge Plan Problem Reviewed?: Yes Disposition: Home, Self Care Condition: Fair Prescriptions: cephALEXin [Keflex] 500 mg PO Q6HR #260 cap Azithromycin [Zithromax] 250 mg PO DAILY #2 tab Diet: Diabetic Activity Restrictions: Additional Comments (partial weight bearing on Left foot) Shower Restrictions: Yes (per ortho) Driving Restrictions: No Assistance Devices: Walker, Crutches Weight Bearing: Partial Weight Health Concerns: You presented to the hospital with a painful foot that was also draining. The foot was red, hot. You are a diabetic and have been uncontrolled for the 11 years you have been a diabetic. The goal of A1c control is less than 7%. You were 12%. You have been given antibiotics into your vein, and an hour on antibiotics by mouth. You have been seen by a wound clinic and orthopedic surgery to drain the infection in your foot. Your diabetes is now well controlled. Before you left you were complaining of a swollen left calf, and a Doppler was done of your leg to make sure there is no concern. Plan of Treatment: 1. Your diabetes was very, very, very well controlled while you were here. Much of that had to do that you are on a diabetic diet, and we were checking your sugars regularly. We are now sending you back home. You are supposedly taking 50 units of 70/30 twice a day. We have you going home 45 units in the morning, and 15 units at night. Remember your goals. Your fasting glucose needs to be below 130. Your glucose before meals needs to be below 160. If you are not at those goals, you need to increase your insulin, decrease your caloric intake, decrease your carbohydrates in your food, or increase your activity by exercise. Sometimes you have to do all 4 of these. 2. You need to take antibiotics until September 20. I have given you enough antibiotics to last to that time. It is Keflex, 250 mg tablets. You will take 2 tablets 4 times a day. 3. While you are taking antibiotics, we strongly recommend an [id number] probiotic to prevent diarrhea. 4. You also had an ear infection while you were here and you need to take 2 more days of Zithromax for the ear infection. It is 1 pill once a day. 5. Please see your primary care provider in follow-up in the next week. 5. Please see the wound clinic on a regular basis at their instruction. Care Goals: To lose 10% of your body weight in the next 6 months To have complete healing of the wounds of your left foot To have an A1c less than 7% Assessment: Patient is a male who prefers to speak Maltese. Does understand some Italian. No Smoking: If you smoke, Please STOP! Call for help. Follow-up with: Isai Ceballos MD [Primary Care Provider] -
[2022-08-19] MEDS: HYDROcod/ACETAM 10 MG/325 MG TABLET PO PRN (11:45)
[2022-08-19] MEDS: SENNA 8.6 MG TABLET PO SCH (11:46)
[2022-08-19] MEDS: polyethylene glycoL 3350 17 GM PACKET PO SCH (11:46)
[2022-08-19] MEDS: DOCUSATE SODIUM 250 MG CAPSULE PO SCH (11:48)
--- NOTE | 2022-08-19 13:11 | WOUND CARE PROGRESS NOTE ---
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 Management as per hospital team. Seems to be under adequate control in-house. (2) Non-pressure chronic ulcer of other part of left foot with other specified severity Assessment/Plan: 41-year-old obese, poorly controlled, insulin-requiring, type II diabetic male, with diabetic foot neuropathy and deep infected DFUs of the left foot complicated by osteomyelitis, abscess/phlegmon, cellulitis, and possible septic joint. Admitted on 08/09/2022 and treated with IV Vanco and Zosyn. Transitioned to IV ceftriaxone by hospital team after aerobic cultures returned. Anaerobic cultures still pending. Anaerobic Gram stain showing GPC and GPR. Also prescribed oral Zithromax for an ear infection. Despite normalization of WBC and improving, but not resolved, foot erythema, there remains warmth to palpation and patient has developed a 3rd ulceration proximally on the lateral foot. Curiously, his platelet count has been steadily increasing and is now at 658K. This is consistent with reactive thrombocythemia and concerns me for continuing abscess. Of note, ceftriaxone would not be expected to cover Enterococcus. Its use in Enterococcus infections is to provide synergy with ampicillin in cases of endocarditis. The anaerobic GPC and GPR could represent organisms such as Actinomyces, Peptostreptococcus, Finegoldia, Peptinophilus, or Anaerococcus. Will have to wait to see if anything grows on culture, which should be back any day. He remains at high risk for amputation. Recommend re-evaluation by orthopedics +/- re-imaging with MRI for consideration of abscess drainage. Recommend discontinuation of IV ceftriaxone and transition back to IV Zosyn or IV cefepime for anticipated 6 weeks total course. Consider infectious disease consultation. Consider trending CRP daily while inpatient. Wounds cleansed with normal saline and Anasept. All wounds dressed with silver Hydrofiber, OPTi lock superabsorbent, and secured with rolled gauze and tape. Offloading: I recommend total NWB L foot using crutches. Goals: Resolve infection Remove necrotic/devitalized tissue Redistribute pressure Manage co-morbidities Wound stabilization pending further evaluation. Limb salvage Appropriate follow up instructions were given. He was given a follow-up appointment in the outpatient C in 7 days, sooner PRN. (3) Cellulitis of left lower extremity Assessment/Plan: See above. (4) Abscess of left foot Assessment/Plan: See above. (5) Enterococcus faecalis infection Assessment/Plan: See above. - Results Lab Results: Laboratory Results Sodium 136 mmol/L (135-145) 08/19/22 05:28 Potassium 4.4 mmol/L (3.5-5.0) 08/19/22 05:28 Chloride 103 mmol/L (101-111) 08/19/22 05:28 Carbon Dioxide 26 mmol/L (21-32) 08/19/22 05:28 Anion Gap 7.0 (6-13) 08/19/22 05:28 BUN 22 mg/dL (6-20) H 08/19/22 05:28 Creatinine 1.0 mg/dL (0.6-1.2) 08/19/22 05:28 Glucose 183 mg/dL (70-100) H 08/19/22 05:28 Hemoglobin A1c % 12.0 % (4.27-6.07) H 08/10/22 06:26 Calcium 8.8 mg/dL (8.5-10.3) 08/19/22 05:28 Total Bilirubin 1.4 mg/dL (0.2-1.0) H 08/10/22 06:26 AST 22 IU/L (10-42) 08/10/22 06:26 ALT 21 IU/L (10-60) 08/10/22 06:26 Alkaline Phosphatase 113 IU/L (42-121) 08/10/22 06:26 Total Protein 6.6 g/dL (6.7-8.2) L 08/10/22 06:26 Albumin 2.7 g/dL (3.2-5.5) L 08/10/22 06:26 Globulin 3.9 g/dL (2.1-4.2) 08/10/22 06:26 Albumin/Globulin Ratio 0.7 (1.0-2.2) L 08/10/22 06:26 08/13/22 15:15 Foot - Left Anaerobic Culture - Preliminary 08/13/22 15:15 Foot - Left Anaerobic Culture Result 1 - Preliminary 08/13/22 15:15 Foot - Left Gram Stain - Final 08/13/22 15:15 Foot - Left Gram Stain Result 1 - Final 08/13/22 15:15 Foot - Left Gram Stain Result 2 - Final 08/13/22 15:15 Foot - Left Gram Stain Result 3 - Final 08/13/22 15:15 Left Lower Extremity - Left Foot Wound Culture - Final Beta Hemolytic Strep Group B Klebsiella Oxytoca Enterococcus Faecalis. 08/09/22 19:59 Blood Blood Culture - Final NO GROWTH AFTER 5 DAYS 08/09/22 19:59 Blood Blood Culture - Final NO GROWTH AFTER 5 DAYS - Home Meds/Allergies Allergies No Known Drug Allergies Allergy (Verified 08/12/22 08:50) Home Medications Losartan [Cozaar] 50 mg PO BID 08/09/22 [History Confirmed 08/09/22] Omeprazole 40 mg PO DAILY 08/09/22 [History Confirmed 08/09/22] hydroCHLOROthiazide [Hydrodiuril] 25 mg PO DAILY 08/10/22 [History Confirmed 08/10/22] metFORMIN [Glucophage] 850 mg PO TIDWM 08/10/22 [History Confirmed 08/10/22] - Additional Planning Condition/Complexity: Improved Plan Discussed with:: Patient (Via tele-bag machine adjuster.) Objective Comments/Notes: Vitals (Done on floor at 0800): T 36.3 C, HR 67, RR 20, BP 131/63. O2 Sat 98% (room air). Constitutional: NAD. Alert and conversant. Respiratory: Normal respiratory effort. Cardiovascular: Regular rate. The left foot and calf are showing significant diminished edema and redness, but still feels warm. Musculoskeletal: No prior amputations. No foot/toe deformities. Neurological: L foot drop. Loss of protective sensation noted bilateral feet to [place] monofilament testing. Labs: 08/19/22: WBC has normalized. H&H are stable and show borderline moderate anemia. Platelet count has been increasing and is now 658. GFR 83. Micro: 08/12/22: Wound culture grew klebsiella oxytoca, GBS, and E. faecalis. 08/09/22: Blood culture no growth x 2 (final). Imagin08/13/22: L foot MRI WO/W contrast demonstrated findings compatible with osteomyelitis of the 5th metatarsal head and shaft and 5th proximal phalanx, possible septic arthritis in the 5th MTPJ, findings compatible with a 7.8 x 2.1 x 6.2 cm abscess/phlegmon in the dorsal aspect of the forefoot tracking lateral and plantar to the 5th metatarsal, and findings consistent with cellulitis. - Wound Assessment Wound #1 is a full-thickness diabetic foot ulcer of the left lateral foot at the level of the fifth metatarsal head. It measures 2.2 x 2.2 x 1.3 cm (L x W x D). There is extensive undermining from 3:00 to 12:00 with maximum distance of 3.5 cm at 11:00. There is moderate yellow serosanguineous drainage noted which has no odor. The patient reports a wound pain level 0/10. The wound margin is unattached. The wound bed is has no epithelialization, no eschar, yes large amount of slough, no granulation. The periwound skin texture normal. No crepitus or fluctuance. The periwound skin moisture is normal. The periwound skin temperature is elevated. The periwound shows diminishing, but not resolved, erythema. Exposed structures: Fascia. Wound #2 is a full-thickness diabetic foot ulcer of the left plantar foot at the level of the fifth metatarsal head. It measures 1.5 x 1.6 x 0.5 cm (L x W x D). There is undermining from 10:00 to 2:00 with maximum distance of 3 cm at 1:00. There is small amount of serous drainage noted which has no odor. The patient reports a wound pain level 0/10. The wound margin is heavily callused and unattached. The wound bed has no epithelialization, no eschar, yes slough, yes red spongy granulation. The periwound skin texture normal. No crepitus or fluctuance. The periwound skin moisture is normal. The periwound skin temperature is elevated. The periwound shows diminishing, but not resolved, erythema. Exposed structures: Fascia. Wound #3 is a full-thickness diabetic foot ulcer of the left lateral foot, proximal. It measures 1.5 x 1.7 x 0.1 cm (L x W x D). There is extensive undermining from 3:00 to 12:00 with maximum distance of 3.5 cm at 11:00. There is moderate yellow serosanguineous drainage noted which has no odor. The patient reports a wound pain level 0/10. The wound margin is unattached. The wound bed is has no epithelialization, no eschar, yes large amount of slough, no granulation. The periwound skin texture is normal. No crepitus or fluctuance. The periwound skin moisture is normal. The periwound skin temperature is eleva deejay. The periwound shows mild erythema. Exposed structures: Fascia. I was unable to demonstrate a communication between the wounds, but they likely do indeed communicate. Subjective - Subjective Patient Reports: Other (History via tele-bag machine adjuster. He says he is feeling better. No c/o FCS. Denies ulcer pain.) Procedure - Procedure Note Wound #1: After informed consent was obtained, a skin/subcutaneous tissue level surgical debridement with a total area of 5.75 square centimeters was performed by Juan Wren MD. Using a scissors, forceps, and curette, dermis, epidermis, and subcutaneous tissues were removed along with devitalized tissue: Exudate and slough. Pain control was achieved using insensate. A timeout was conducted prior to the start of the procedure. A minimal amount of bleeding was controlled with pressure. The procedure was tolerated well. Postdebridement measurements: 2.5 x 2.3 x 1.3 cm (L x W x D). Wound #2: After informed consent was obtained, a skin/subcutaneous tissue level surgical debridement with a total area of 2.40 square centimeters was performed by Juan Wren MD. Using a scissors, forceps, and curette, dermis, epidermis, and subcutaneous tissues were removed along with devitalized tissue: Callus, exudate and slough. Pain control was achieved using insensate. A timeout was conducted prior to the start of the procedure. A moderate amount of bleeding was controlled with QuikClot and pressure. The procedure was tolerated well. Postdebridement measurements: 1.5 x 1.6 x 0.5 cm (L x W x D). Wound #3: After informed consent was obtained, a skin/subcutaneous tissue level surgical debridement with a total area of 2.85 square centimeters was performed by Juan Wren MD. Using a curette, dermis, epidermis, and subcutaneous tissues were removed along with devitalized tissue: Exudate and slough. Pain control was achieved using insensate. A timeout was conducted prior to the start of the procedure. A minimal amount of bleeding was controlled with pressure. The procedure was tolerated well. Postdebridement measurements: 1.5 x 1.9 x 0.7 cm (L x W x D).
--- NOTE | 2022-08-19 15:42 | Ultrasound Report ---
PROCEDURE: Duplex Ext Veins Left INDICATIONS: hard, painful L calf in obese man w foot infection TECHNIQUE: Real-time imaging, as well as color and pulse Doppler interrogation, were performed of the lower extr emity deep veins from the inguinal ligament to the popliteal fossa. COMPARISON: None. FINDINGS: The deep veins are normally compressible, and free of intraluminal thrombus. Color and pu lse Doppler demonstrate normal phasic intraluminal flow. There is normal augmentation response to di stal compression maneuver. IMPRESSION: No deep venous thrombosis. Reviewed by: Domitila Benton MD on 08/19/2022 3:41 PM PST Approved by: Domitila Benton MD on 08/19/2022 3:41 PM PST Station ID: [id number]
--- NOTE | 2022-08-19 16:59 | PROVIDER PROGRESS NOTE ---
Progress Note August 19, 2022 4:31 PM I had up to discharge the patient this morning after signout from the previous hospitalist. He had gained quite a bit of weight from IV fluid resuscitation and had diuresed briskly. The patient said that he lost quite a bit of edema and felt better. On the basis of that he was ready to go home. I was under the impression that the infection was under control, and that he could be switched over to oral antibiotics. He was on Keflex. He was also on azithromycin for an ear pain. However, after a long discussion with the residential support specialist, they recommend intravenous antibiotics for at least 6 weeks. We discussed various scenarios of different ways to image his foot, get appropriate infectious disease in volvement, and how I can get either general surgery or orthopedic surgery to do a more aggressive incision and debridement if we found something. Dr. Smyth is also concerned that the patient's platelet count continues to rise in spite of adequate treatment. Reactive thrombocytosis in the face of an ongoing infection may indicate that the infection is not getting better. He also has a new area that has erupted on the lateral aspect of his left foot, more posterior and closer to his heel than the 1 he presented with on admission. The patient himself feels like pain is controlled. He was uncomfortable with his leg edema but that has improved. He said as the edema resolved, especially in the left leg, his left calf became harder and firmer and slightly more tender. Doing an ice pack was absolutely wonderful on that leg yesterday he tells me. Exam: Temperature is 37. Heart rate is 75. Blood pressure 125/60. Respirations 19. He is 100% on room air. His last temperature spike was August 10, 2019 was 38.6. 5 foot 8 inches tall, 154 kg. He was 150 kg on admission, and had gone up to 154. He was diuresed with Lasix Neck cannot be assessed because of his girth of his neck but it is supple Diminished breath sounds at the bases without any increased respiratory effort. Overall lungs are quiet, without crackles, rhonchi wheezing or shortness of breath Distant cardiac tones of regular rate and rhythm Abdomen that is obese, nontender, normal bowel sounds Extremities have a left foot that is completely wrapped in Kerlix. There is a large divot of skin gone on the plantar aspect underneath the fifth toe. [place] tissue, nondraining, no redness. The ulcer is down to muscle. On the lateral aspect of the left foot, he has an ulcer just lateral to the fifth toe. Another ulcer on the dorsum of the foot that is deepened down to bone. And then a new ulcer that is erupted more proximal and closer to the ankle on the lateral/dorsal aspect of the foot. Both of those again, appear to be down to the bone. The foot itself is diffusely edematous. He has edema that comes up the foot and to the calf. There is woody edema over the wyatt and medial and lateral malleolar line. The calf muscle is hard, woody and tender. The right foot and leg has hemosiderin deposits former has had venous stasis. But there is no open wound. 1+ edema. Lab: Wound culture from August 13 has beta-hemolytic strep group B. Klebsiella oxytocin. Enterococcus faecalis. The Klebsiella is resistant to ampicillin. The Enterococcus is resistant to tetracycline. Both of them are sensitive to Levaquin. White cell count is normal at 8.9. It has been normal this admission. Hemoglobin 10. Hematocrit 33. Platelets 658. Sodium 136, potassium 4.4, BUN 22, creatinine 1.0. He started at 1.2 on admission and is gone down to 0.9. So his creatinine is staying stable. Glucose August 18 was 159, 219, 163, 118 Glucose today is 181, 188, 141 Assessment/plan 1. Diabetic foot infection. This gentleman presented as a chronic infection that has been getting worse. He has been on antibiotics since admission August 09 so today would make 11 days of antibiotics. He has been seen by wound residential property consultant on August 13. The wound residential property consultant was not able to see communication between the 2 lateral left foot ulcers but he suspects there is. He did debridement of both lateral foot ulcers. MRI done August 13 has edema and enhancement of the fifth metatarsal and fifth proximal phalanx consistent with osteomyelitis. A small joint effusion at the fifth metatarsal joint raises the possibility of septic arthritis. He has a soft tissue ulcer at the dorsal lateral aspect of the foot contiguous with extensive confluent abscess and phlegmon in the dorsal aspect of the forefoot tracking lateral and plantar to the fifth metatarsal. Edema enhancement of the interosseous muscles consistent with myositis. The patient was switched over to Keflex thinking that he could be temporized wi th oral antibiotics and then sent home. The signout was that if he was diuresed enough and did not have any more uncomfortable edema from fluid resuscitation, he could go home. However, the wound consulted today strongly feels that the patient really needs continued IV antibiotic care. He is worried about the reactive thrombocytosis. Plan: I have disappointed the patient, understandably so, by saying that I have canceled discharge. Resume IV Zosyn Dr. Alvarenga will call infectious disease to see if they can get any recommendations Repeat MRI of the foot to see if abscess or fluid collection has improved or continues to remain where the patient may need further foot debridement or surgery 2. Cellulitis of the left foot. 3. Septic arthritis 4. Osteomyelitis All of these problems, except for the fourth, have improved since he is being here. Again, Dr. Alvarenga will call infectious disease to see if this patient needs to remain on 6 weeks of antibiotic therapy or if we can change to something such as Levaquin with good tissue penetration. 5. Leg edema, significant swelling was noted August 17 because of fluid resuscitation. He was resumed on his hydrochlorothiazide August 16 without much effect. Given IV Lasix once on August 17 and August 18. He said it really gave him a brisk diuresis, and he was pleased with how much edema he lost on his right leg. Left leg has shrunk down but the left calf is tender. Plan: Continue diuresis I checked a stat venous Doppler to make sure he did not have a DVT. There is no DVT. Ice for the leg since it makes him feel better 6. Right otitis media. Z-Bk started August 17 and patient has steadily improved since that time. tomorrow will be his last dose. 7. Type 2 diabetes mellitus, uncontrolled, with hyperglycemia, with complications of diabetic foot infection/neuropathy, on long-term insulin. A1c came back at 12%. Prior to admission he was not on a strict diet, he did not exercise, and was on 50 units of 70/30 insulin twice a day. While here his glucoses are well controlled. We have had him on a low carb choice diet and that is helped as well. He is currently on units in the morning. And 15 units at night. And he gets sliding scale insulin with each meal. Nutrition services has spoken to him at length about low-carb dieting. Diabetic education has been ongoing. Plan: Add 5 units of short acting insulin/lispro with lunch and dinner. 8. Dysphagia with solids. Patient states that this is a problem at home and he uses Reglan for it. It suspected that he has diabetic gastroparesis and poor GI motility. He also had right ear pain and we think that he may have been developing referred pain. We do not have fluoroscopy at this hospital. He will need an outpatient work- up.
[2022-08-20] MEDS: HYDROcod/ACETAM 5/325 MG TABLET PO PRN ×3 (00:10→14:43)
[2022-08-20] MEDS: cephALEXin 250 MG CAPSULE PO SCH ×2 (00:10→06:38)
[2022-08-20 05:15] LABS: CREATININE 0.9 mg/dL (0.6-1.2); POTASSIUM 4.3 mmol/L (3.5-5.0)
[2022-08-20] MEDS: PANTOPRAZOLE 40 MG TABLET PO SCH (06:38)
[2022-08-20] MEDS: METOPROLOL TARTRATE 25 MG TABLET PO SCH ×2 (07:59→20:40)
[2022-08-20] MEDS: metFORMIN 500 MG TABLET PO SCH ×2 (07:59→18:13)
[2022-08-20] MEDS: SACCHAROMYCES BOULARDII 250 MG CAPSULE PO SCH ×2 (07:59→18:13)
[2022-08-20] MEDS: polyethylene glycoL 3350 17 GM PACKET PO SCH (08:00)
[2022-08-20] MEDS: AZITHROMYCIN 250 MG TABLET PO SCH (08:00)
[2022-08-20] MEDS: hydroCHLOROthiazide 25 MG TABLET PO SCH (08:00)
[2022-08-20] MEDS: LOSARTAN 50 MG TABLET PO SCH ×2 (08:00→20:40)
[2022-08-20] MEDS: DOCUSATE SODIUM 250 MG CAPSULE PO SCH (08:00)
[2022-08-20] MEDS: MULTIVITAMIN W/MINERALS TABLET PO SCH (08:00)
[2022-08-20] MEDS: SENNA 8.6 MG TABLET PO SCH (08:01)
[2022-08-20] MEDS: SODIUM CHLORIDE FLUSH 0.9% 10 ML SYRINGE IVP SCH ×2 (08:01→18:13)
[2022-08-20] MEDS: INSULIN LISPRO 300 UNIT/3 ML PEN SUBQ SCH ×4 (08:02→20:49)
[2022-08-20] MEDS: INSULIN 70/30 HUMAN 300 UNIT/3 ML VIAL SUBQ SCH ×2 (08:02→18:13)
[2022-08-20] MEDS: ERTAPENEM 1 GM in SODIUM CHLORIDE 0.9% MINIBAG 100 ML IV SCH (12:17)
[2022-08-20] MEDS ORDERED: GADOBUTROL 15 MMOL/15 ML VIAL ONE (14:50)
--- NOTE | 2022-08-20 14:50 | ANESTHESIA PROCEDURE NOTE ---
Anesth Central Line Template - Central Line Central Line Preparation: Consent Obtained, Time out completed, Ultrasound used, Sterile prep and drape Central line location: Right Basilic Central line type: PICC Double Lumen Central line catheter tip site resides: Superior vena cava (SVC) Central line aftercare: Secured, Placement confirmed, No pneumothorax, No complications, Pt tolerated well Other Info/Details: Consent obtained. Right upper arm prepped with chlorhexadine. Full sterile gown, gloves, drape and mask utilized. Right basilic vein identified under US and skin localized with 3ml of 1% lidocaine. Right basilic vein accessed with 20G needle under US guidance. Wire advanced with ease. Sheath placed over wire, wired removed and a dual lumen 5Fr PICC was inserted. Catheter was trimmed to 42 cm and advanced with 0cm exposed. Tip tracker indicated tip was towards the heart. Chest xray obtained for confirmation of placement and showed tip at the cavoatrial junction. Both ports aspirate blood and flush with ease. Patient tolerated well.
[2022-08-20] MEDS ORDERED: GADOBUTROL 15 MMOL/15 ML VIAL IVP ONE (15:25)
--- NOTE | 2022-08-20 15:30 | XRAY Report ---
PROCEDURE: Chest for Line Placement INDICATIONS: PICC line TECHNIQUE: One view of the chest was acquired. COMPARISON: 08/12/2022. FINDINGS: Surgical changes and devices: Right arm PICC line projects to SVC right atrial junction. Lungs and pleura: No pleural effusions or pneumothorax. Lungs are clear. Mediastinum: Mediastinal contours appear normal. Heart size is normal. Bones and chest wall: No suspicious bony lesions. Overlying soft tissues appear unremarkable. IMPRESSION: Satisfactory placement of right arm PICC line. Reviewed by: Denzel John MD on 08/20/2022 3:28 PM PST Approved by: Denzel John MD on 08/20/2022 3:28 PM PST Station ID: [id number]
--- NOTE | 2022-08-20 19:57 | PROVIDER PROGRESS NOTE ---
Progress Note August 20, 2022 7:48 PM There has been a delay in the MRI of the foot. I called down to radiology right now and the report still is not available. Is not going to change the management of the patient today so I will await report tomorrow. There is been no new events. He has no pain in that foot. He is afebrile. In anticipation of long-term IV antibiotics, I did consult with anesthesia today. Verified that there was no anticoagulation needed needed to worry about. And a PICC line has been placed. Exam: Temperature is 36.7, heart rate 73. Blood pressure 124/70. Respirations 18. 99% on room air Pleasant male who is 5 foot 8 inches tall and weighs 154 kg Diminished breath sounds at the bases and a large barrel chest but there is no respiratory distress and he has clear lungs. Distant cardiac tones with regular rate and rhythm Abdomen is soft, obese, nontender.Very large abdominal panus. Normal bowel sounds. He had a bowel movement yesterday and a bowel movement today. Extremities show him to have the left foot that is wrapped in Kerlix. Though right foot and calf and wyatt have trace edema with hemosiderin deposits. The left foot has 2-3+ edema. The right foot has more 1+ to 2+ pitting edema. Both limbs are large with obesity. He is an alert, oriented male. Labs: Sodium 138, potassium 4.3, BUN 22, creatinine 0.9. Assessment/plan 1. Diabetic foot infection. With cellulitis of the left foot, septic arthritis, and osteomyelitis. He has had a chronic foot infection that did not respond to outpatient antibiotics, has been getting worse, and with erupting ulcers. Antibiotics were started on August 09 so today is day 12. He was seen by the wound database consultant on August 13 and he had debridement of the lateral foot ulcers on the left foot. An MRI done that day has edema and enhancement of the fifth metatarsal and fifth proximal phalanx consistent with osteomyelitis. He has a soft tissue ulcer at the dorsal lateral aspect of the foot continuous with extensive complaint abscess and phlegmon in the dorsal aspect of the forefoot tracking lateral and plantar to the fifth metatarsal. Edema enhancement of the interosseous muscles consistent with myositis. When I received signout for August 19, it was discussed that the patient was changed over to oral antibiotics in anticipation of going home. However the wound database consultant really feels that the patient may need more surgical debridement. And wanted another MRI. As such I canceled discharge. Spoke to his brother, cousin and the patient at length. MRI was done today and report has not been processed. I also spoke to pharmacy today. We discussed the patient's beta-hemolytic group B strep, Klebsiella oxytocin, and Enterococcus faecalis. I wanted to reduce the frequency of antibiotics. Pharmacy feels that imipenem is an adequate antibiotic and that can be given once a day. As such, the PICC line has been placed today. I am changing him over to ertapenem once a day. Plan is for possibly up to 6 weeks of antibiotic therapy. I will await the MRI results. If the MRI results indicate that the patient needs further surgery I will we discussed with orthopedics. If orthopedics cannot operate, I will then approach what ever general surgeon is on-call to see if they can possibly see this patient. 2. Leg edema. Currently being treated with IV Lasix IV push twice daily. I also make sure he did not have a DVT yesterday and that was negative. Diuresis will continue. 3. Right otitis media. Z-Bk started August 17 and last dose I thought was going to be today. If he received 500 mg on the , he should receive 250 mg the , , and . As such last dose should be tomorrow. 4. Type 2 diabetes mellitus, uncontrolled, with hyperglycemia, with complication of diabetic foot infection, and peripheral neuropathy. On long- term insulin. A1c is 12%. Our current management is a low-carb diet, and 70/30 insulin. 40 units in the morning and 15 units at night. This evening his premeal glucose is 108. As such have temporary lowered his nighttime insulin to 10 units. He is also getting 5 units of short acting insulin with lunch and dinner.
[2022-08-21] MEDS: SODIUM CHLORIDE FLUSH 0.9% 10 ML SYRINGE IVP SCH ×3 (03:31→17:38)
[2022-08-21 05:51] LABS: BASOPHILS % (AUTO) 0.3 %; EOSINOPHILS # (AUTO) 0.2 10^3/uL (0.0-0.7); EOSINOPHILS % (AUTO) 2.3 %; HCT - HEMATOCRIT 31.5 % (42.0-52.0); HGB - HEMOGLOBIN 9.6 g/dL (14.0-18.0); LYMPHOCYTES # (AUTO) 1.9 10^3/uL (1.5-3.5); LYMPHOCYTES % (AUTO) 21.1 %; MEAN CORPUSCULAR HEMOGLOBIN 25.3 pg (27.0-31.0); MEAN CORPUSCULAR HGB CONC 30.5 g/dL (32.0-36.0); MEAN CORPUSCULAR VOLUME 82.9 fL (80.0-94.0); MEAN PLATELET VOLUME 9.1 fL (7.4-11.4); MONOCYTES # (AUTO) 0.6 10^3/uL (0.0-1.0); MONOCYTES % (AUTO) 6.7 %; NEUTROPHILS # (AUTO) 6.1 10^3/uL (1.5-6.6); NEUTROPHILS % (AUTO) 69.1 %; PLT - PLATELET COUNT 639 10^3/uL (130-450); RED CELL DISTRIBUTION WIDTH 13.7 % (12.0-15.0); WHITE BLOOD COUNT 8.8 x10^3/uL (4.8-10.8)
[2022-08-21 05:59] LABS: CALCIUM 8.9 mg/dL (8.5-10.3); CREATININE 0.8 mg/dL (0.6-1.2); POTASSIUM 4.1 mmol/L (3.5-5.0)
[2022-08-21] MEDS: PANTOPRAZOLE 40 MG TABLET PO SCH (08:04)
--- NOTE | 2022-08-21 08:34 | MRI Report ---
PROCEDURE: FOOT W/WO - LT INDICATIONS: abcess and infection CONTRAST: gadavist 15ml TECHNIQUE: Noncontrast sagittal T1 spin echo and T2 fast spin echo with fat saturation, long-axis T1 spin echo a nd T2 fast spin echo with fat saturation; short-axis T1 spin echo, proton density fast spin echo, and T2 fast spin echo with fat saturation through the forefoot. Post-contrast short axis, long axis, an d sagittal T1 spin echo with fat saturation through the forefoot. COMPARISON: Left foot MRI 08/13/2022. FINDINGS: Image quality: Excellent. Bones and joints: Osseous edema and mildly decreased intrinsic T1-weighted signal are seen throughout the fifth metatarsal shaft extending into the metatarsal head, which is similar extent when compared to the MRI from 08/13/2022. Edema is also again seen in the fifth proximal phalanx. Mild osseous edema is seen within the midportion of the cuboid that is similar when compared to the prior exam and oste omyelitis is not excluded. Degenerative changes are again seen in the midfoot. Mild chronic healed de formity of the third metatarsal shaft. Soft tissues: Skin ulceration is seen at the dorsal lateral aspect of the midfoot at the level of th e fifth metatarsal base as well as more anteriorly at the level of the metatarsal shaft. Underlying e angel and enhancement as well as nonenhancing fluid/abscess are seen that do not appear significantly changed in extent when compared to the recent prior MRI. However, when compared to the prior exam, th ere is decreased enhancement of the lateral intrinsic foot musculature that is suspicious for worseni ng infectious involvement and possibly developing necrosis. This predominantly involves the abductor digiti quinti minimi muscle and interosseous muscle between the fourth and fifth metatarsal shafts. C hronic denervation changes are again seen in the plantar foot musculature.t no new ligament or tendon injury is seen. IMPRESSION: 1.Abnormal osseous signal within the fifth metatarsal and fifth proximal phalanx is again seen, consi stent with osteomyelitis. Extent of osseous infection has not significantly changed when compared to the MRI from 08/13/2022. Similar nonspecific osseous edema and enhancement are seen within the cuboid. 2.Skin ulceration at the dorsal lateral aspect of the midfoot and forefoot with similar-appearing sub cutaneous abscess and surrounding cellulitis and compared to the prior MRI. 3.Nonenhancement of the intrinsic foot musculature surrounding the fifth metatarsal has increased whe n compared to the prior MRI, and is suspicious for worsening infectious involvement with possible miguel ángel lving necrosis versus ischemia. Chronic denervation changes are noted within the medial foot musculat ure with possible areas of superimposed myositis. Reviewed by: Antonino Palmer MD on 08/21/2022 8:33 AM PST Approved by: Antonino Palmer MD on 08/21/2022 8:33 AM PST Station ID: [id number]
[2022-08-21] MEDS: ERTAPENEM 1 GM in SODIUM CHLORIDE 0.9% MINIBAG 100 ML IV SCH (08:55)
[2022-08-21] MEDS: INSULIN LISPRO 300 UNIT/3 ML PEN SUBQ SCH ×4 (08:55→20:59)
[2022-08-21] MEDS: AZITHROMYCIN 250 MG TABLET PO SCH (08:57)
[2022-08-21] MEDS: METOPROLOL TARTRATE 25 MG TABLET PO SCH ×2 (08:57→21:00)
[2022-08-21] MEDS: HYDROcod/ACETAM 5/325 MG TABLET PO PRN (08:57)
[2022-08-21] MEDS: hydroCHLOROthiazide 25 MG TABLET PO SCH (08:57)
[2022-08-21] MEDS: LOSARTAN 50 MG TABLET PO SCH ×2 (08:57→21:00)
[2022-08-21] MEDS: SACCHAROMYCES BOULARDII 250 MG CAPSULE PO SCH ×2 (08:57→17:36)
[2022-08-21] MEDS: MULTIVITAMIN W/MINERALS TABLET PO SCH (08:57)
[2022-08-21] MEDS: metFORMIN 500 MG TABLET PO SCH ×2 (08:57→17:36)
[2022-08-21] MEDS: INSULIN 70/30 HUMAN 300 UNIT/3 ML VIAL SUBQ SCH ×2 (08:58→17:37)
--- NOTE | 2022-08-21 13:33 | PROVIDER PROGRESS NOTE ---
Subjective - General Admit Date: 08/09/22 Procedure Performed: No surgery performed - Review of Systems General: positive: No symptoms - Other Other Information/Narrative: He is sitting comfortably, remains in good spirits and has minimal pain to his left foot. He has been treated nonoperatively with draining ulcers for bone and soft tissue infection associated with uncontrolled diabetes and neuropathy. He initially started out with a several month history of a plantar ulcer over the left fifth metatarsal which became infected and led to soft tissue infection dorsal laterally with cellulitis involving left leg. He denies fever or chills. Objective - Patient Data Vital Signs: Vital Signs x48h Temp Pulse Resp BP 08/21/22 08:00 36.8 C 68 16 127/60 Weight: Weight 08/19/22 08/20/22 08/21/22 23:59 23:59 23:59 Weight (kg) 154 kg Intake & Output: Intake and Output Totals x24h 08/19/22 08/20/22 08/21/22 23:59 23:59 23:59 Intake Total 600 1420 460 Balance 600 1420 460 - Lab Results Lab Results: 08/21/22 05:15 08/21/22 05:15 Other Lab Results: Lab Results x24hrs 08/21/22 08/21/22 08/21/22 Range/Units 11:31 07:58 05:15 WBC 8.8 (4.8-10.8) x10^3/uL RBC 3.80 L (4.70-6.10) 10^6/uL Hgb 9.6 L (14.0-18.0) g/dL Hct 31.5 L (42.0-52.0) % MCV 82.9 (80.0-94.0) fL MCH 25.3 L (27.0-31.0) pg MCHC 30.5 L (32.0-36.0) g/dL RDW 13.7 (12.0-15.0) % Plt Count 639 H (130-450) 10^3/uL MPV 9.1 (7.4-11.4) fL Neut # (Auto) 6.1 (1.5-6.6) 10^3/uL Lymph # (Auto) 1.9 (1.5-3.5) 10^3/uL [place] # (Auto) 0.6 (0.0-1.0) 10^3/uL Eos # (Auto) 0.2 (0.0-0.7) 10^3/uL Baso # (Auto) 0.0 (0.0-0.1) 10^3/uL Absolute Nucleated RBC 0.00 x10^3/uL Nucleated RBC % 0.0 /100WBC Sodium (135-145) mmol/L Potassium (3.5-5.0) mmol/L Chloride (101-111) mmol/L Carbon Dioxide (21-32) mmol/L Anion Gap (6-13) BUN (6-20) mg/dL Creatinine (0.6-1.2) mg/dL Estimated GFR (MDRD) (>89) Glucose (70-100) mg/dL POC Whole Bld Glucose 219 H 174 H (70 - 100) mg/dL Calcium (8.5-10.3) mg/dL 08/21/22 08/20/22 08/20/22 Range/Units 05:15 20:49 16:42 WBC (4.8-10.8) x10^3/uL RBC (4.70-6.10) 10^6/uL Hgb (14.0-18.0) g/dL Hct (42.0-52.0) % MCV (80.0-94.0) fL MCH (27.0-31.0) pg MCHC (32.0-36.0) g/dL RDW (12.0-15.0) % Plt Count (130-450) 10^3/uL MPV (7.4-11.4) fL Neut # (Auto) (1.5-6.6) 10^3/uL Lymph # (Auto) (1.5-3.5) 10^3/uL [place] # (Auto) (0.0-1.0) 10^3/uL Eos # (Auto) (0.0-0.7) 10^3/uL Baso # (Auto) (0.0-0.1) 10^3/uL Absolute Nucleated RBC x10^3/uL Nucleated RBC % /100WBC Sodium 135 (135-145) mmol/L Potassium 4.1 (3.5-5.0) mmol/L Chloride 100 L (101-111) mmol/L Carbon Dioxide 26 (21-32) mmol/L Anion Gap 9.0 (6-13) BUN 21 H (6-20) mg/dL Creatinine 0.8 (0.6-1.2) mg/dL Estimated GFR (MDRD) 107 (>89) Glucose 166 H (70-100) mg/dL POC Whole Bld Glucose 136 H 103 H (70 - 100) mg/dL Calcium 8.9 (8.5-10.3) mg/dL - Imaging Results Radiology Imaging: positive: See rad report - Current Medications Current Medications: Current Medications Generic Name Dose Route Start Last Admin Trade Name Freq PRN Reason Stop Dose Admin Acetaminophen 650 mg 08/09/22 21:56 08/18/22 05:55 Acetaminophen 325 Mg Tablet PO 650 mg Q4HR PRN Administration Pain 1 to 4, or Fever Hydrocodone Bitart/Acetaminophen 1 tab 08/09/22 21:56 08/19/22 11:45 Hydrocod/Acetam 10 Mg/325 Mg Tablet PO 1 tab Q4HR PRN Administration Pain 8 to 10 Hydrocodone Bitart/Acetaminophen 1 tab 08/09/22 21:56 08/21/22 08:57 Hydrocod/Acetam 5/325 Mg Tablet PO 1 tab Q4HR PRN Administration Pain 5 to 7 Azithromycin 250 mg 08/18/22 09:00 08/21/22 08:57 Azithromycin 250 Mg Tablet PO 08/22/22 00:01 250 mg DAILY ADRI Administration Carboxymethylcellulose 1 drops 08/10/22 01:01 08/18/22 08:22 Carboxymethylcellulose Ophth Drops EACHEYE 1 drops PRN PRN Administration Dry Eye Hydrochlorothiazide 25 mg 08/17/22 09:00 08/21/22 08:57 Hydrochlorothiazide 25 Mg Tablet PO 25 mg DAILY ADRI Administration Ertapenem 1 gm/ Sodium 100 mls @ 200 mls/hr 08/20/22 12:00 08/21/22 09:25 Chloride IV Infused DAILY ADRI Infusion Insulin Human Isoph/Insulin Regular 40 unit 08/15/22 09:00 08/21/22 08:58 Insulin 70/30 Human 300 Unit/3 Ml Vial SUBQ 40 unit DAILY ADRI Administration Insulin Human Isoph/Insulin Regular 10 unit 08/20/22 18:01 08/20/22 18:13 Insulin 70/30 Human 300 Unit/3 Ml Vial SUBQ 10 unit 1700 ADRI Administration Insulin Human Lispro 3 - 11 unit 08/15/22 12:24 08/21/22 11:45 Insulin Lispro 300 Unit/3 Ml Pen SUBQ 5 unit 0800,1200,1700,2100 ADRI Administration Protocol Losartan Potassium 50 mg 08/10/22 09:00 08/21/22 08:57 Losartan 50 Mg Tablet PO 50 mg BID ADRI Administration Metformin HCl 1,000 mg 08/18/22 17:00 08/21/22 08:57 Metformin 500 Mg Tablet PO 1,000 mg BIDWM ADRI Administration Metoclopramide HCl 5 mg 08/11/22 22:37 08/11/22 23:00 Metoclopramide 10 Mg/2 Ml Vial IVP 5 mg Q6HR PRN Administration NEEDED PER PROVIDER ORDERS Metoprolol Tartrate 25 mg 08/10/22 09:00 08/21/22 08:57 Metoprolol Tartrate 25 Mg Tablet PO 25 mg BID ADRI Administration Multi-Ingredient Ointment 1 applic 08/13/22 18:12 08/13/22 18:46 Zinc Oxide 20% Oint 30 Gm Tube TOP 1 applic PRN PRN Administration Skin Care Multivitamins/Minerals 1 tab 08/15/22 09:00 08/21/22 08:57 Multivitamin W/Minerals Tablet PO 1 tab DAILYWM ADRI Administration Ondansetron HCl 4 mg 08/09/22 21:56 08/16/22 08:38 Ondansetron 4 Mg/2 Ml Vial IVP 4 mg Q6HR PRN Administration Nausea / Vomiting Pantoprazole Sodium 40 mg 08/10/22 07:00 08/21/22 08:04 Pantoprazole 40 Mg Tablet PO 40 mg QDAC ADRI Administration Saccharomyces Boulardii 250 mg 08/17/22 17:00 08/21/22 08:57 Saccharomyces Boulardii 250 Mg Capsule PO 250 mg BIDWM ADRI Administration Sodium Chloride 10 ml 08/09/22 21:56 08/17/22 10:22 Sodium Chloride Flush 0.9% 10 Ml Syringe IVP 10 ml PRN PRN Administration NEEDED PER PROVIDER ORDERS Sodium Chloride 10 ml 08/10/22 01:00 08/21/22 08:58 Sodium Chloride Flush 0.9% 10 Ml Syringe IVP 10 ml 0100,0900,1700 ADRI Administration Throat Lozenges 1 lozenge 08/10/22 01:01 08/17/22 16:28 Benzocaine/Menthol Lozenge MM 1 lozenge Q2HR PRN Administration Throat pain - Physical Exam Comments/Other: The left foot was inspected, dressings changed. The previously inserted packs to his ulcers were removed. Only one of the ulcers had any fluid collection and that is the largest ulcer over the lateral border of the left foot. This lateral border ulcer measuring about 2 cm, full-thickness communicates to bone and communicates up the lateral border of the foot and the dorsum of the foot. There is no sign of pus or abscess formation. All of the fluid easily comes out the ulcer. There is no skin necrosis. Gentle curette of the wound base was performed with bleeding stimulation, mild superficial necrosis at the base of the wound overlying fifth metatarsal. The plantar ulcer is superficial and does not communicate with bone, joint or tendon but does involve a full-thickness ulcer. There is no drainage from the plantar ulcer and there is no sign of any plantar abscess. There is edema to the left lower extremity but no sign of active cellulitis in terms of redness or progression of swelling. Impression/Plan - Problem List Problem List: Diabetic foot infection, left foot both soft tissue and bone. I do not see any abscess that needs to be decompressed with further incision and drainage. He has a full-thickness ulcer that usually communicates with the dorsum and lateral border of the foot. It is my recommendation that he should have at least daily pack change to left foot until swelling and drainage are minimal. I would continue the present antibiotics. I would continue elevation. I would also recommend deep venous thrombosis prophylaxis. There is adequate drainage of his infection in my opinion at this time. I would continue antibiotics for minimum of 6 weeks and I would discharge him on intravenous antibiotics. I would be happy to do the f ollow-up that he need to be seen in the office at least once or twice per week initially and perhaps weekly thereafter for a while.I discussed this with Dr. Alvarado, our hospitalist who was available.I do not see that the MRI scan that was recently obtained adds much to the evaluation or treatment. A routine radiographs of the foot would be just as helpful in my opinion as well as a foot exam.
--- NOTE | 2022-08-21 19:51 | PROVIDER PROGRESS NOTE ---
Progress Note August 21, 2022 7:40 PM Orthopedics graciously came and saw the patient again today. We went over the MRI results indicating myositis, progression of infection as per reading of the radiologist. Also questionable fluid collection that could be abscess. Orthopedics strongly feels that this is not an abscess. He examined the wound, stuck his finger in the tissue deficits and there is no fluid collections. The patient is insensate so is able to tolerate this exam without any difficulty. In addition his white cell count is normal, and has been normal. He is recommending daily dressing changes not weekly dressing changes. He is also recommending 6 weeks of antibiotic therapy. If we want to follow-up on his infection he recommends plain film. Exam: Temperature 36.8, heart rate 72, blood pressure 108/55, respirations 20, 98% room air 5 foot 8 inch male, 154 kg. Exceedingly pleasant, without acute distress, comfortable. Diminished breath sounds at the bases, barrel chest, but no respiratory distress Regular rate and rhythm Morbidly obese abdomen that has normal bowel sounds, is nontender Pedal edema of the right foot remains at about 1-2+. Edema of the left foot is close to 3+. Examination noted per orthopedics. White cell count 8.8. Hemoglobin 9.6. Hematocrit 31.5. Platelets 639. Sodium 135, potassium 4.1, BUN 21, creatinine 0.8 Assessment/plan 1. Diabetic foot infection. With cellulitis of the left foot, septic arthritis, osteomyelitis. He failed outpatient therapy after being gone for a few months. Came back from [place] and was back in the country for days before he came back to our emergency room. Antibiotics were started August 09, today is day #13. antibiotics were Rocephin, then followed by Zosyn on the basis of cultures. Zosyn was then changed to ertapenem August 20 for ease of use since it is once a day. This was after a PICC line was placed on August 20. With the change in antibiotics there is been no leukocytosis, fever. Patient has no increased pain. The foot appears stable with regards to chronic edema, pink granulating tissue within the ulcers, and no pus on exam. My concern centered around the MRI report today. Abscess seem to be present on the film. And he also seem to be having necrosis of muscle. But clinically the patient has no fever or elevated white cell count with this. So I had orthopedics see him. After discussion I am reassured, and will continue him on daily ertapenem. I will also make sure we do her dressing changes daily as opposed to weekly. Recommendations appreciated per orthopedics. 2. Right otitis media. Z-Bk started August 17 and completed today. 3. Type 2 diabetes mellitus, uncontrolled, with hyperglycemia, with complications of diabetic foot infection, peripheral neuropathy. Current management is a low-carb diet, 70/30 insulin. Last night I decreased his 15 units to 10 units because he was 103 right before dinner. After dinner he was 136, and by bedtime 208. This morning he received 40 units. He is getting 5 units of short acting insulin with lunch and dinner. Today's glucose was 174, 219, 136. I will increase his nighttime 70/30 back to 15 units at night.
[2022-08-21] MEDS: ACETAMINOPHEN 325 MG TABLET PO PRN (21:04)
[2022-08-22] MEDS: SODIUM CHLORIDE FLUSH 0.9% 10 ML SYRINGE IVP SCH ×3 (01:00→17:05)
[2022-08-22 06:32] LABS: BASOPHILS % (AUTO) 0.4 %; EOSINOPHILS # (AUTO) 0.2 10^3/uL (0.0-0.7); EOSINOPHILS % (AUTO) 2.4 %; HCT - HEMATOCRIT 31.4 % (42.0-52.0); HGB - HEMOGLOBIN 9.7 g/dL (14.0-18.0); LYMPHOCYTES # (AUTO) 2.1 10^3/uL (1.5-3.5); LYMPHOCYTES % (AUTO) 24.7 %; MEAN CORPUSCULAR HEMOGLOBIN 25.5 pg (27.0-31.0); MEAN CORPUSCULAR HGB CONC 30.9 g/dL (32.0-36.0); MEAN CORPUSCULAR VOLUME 82.6 fL (80.0-94.0); MEAN PLATELET VOLUME 8.9 fL (7.4-11.4); MONOCYTES # (AUTO) 0.6 10^3/uL (0.0-1.0); MONOCYTES % (AUTO) 7.3 %; NEUTROPHILS # (AUTO) 5.4 10^3/uL (1.5-6.6); NEUTROPHILS % (AUTO) 64.8 %; PLT - PLATELET COUNT 666 10^3/uL (130-450); RED CELL DISTRIBUTION WIDTH 13.7 % (12.0-15.0); WHITE BLOOD COUNT 8.3 x10^3/uL (4.8-10.8)
[2022-08-22] MEDS: PANTOPRAZOLE 40 MG TABLET PO SCH (06:35)
[2022-08-22] MEDS: HYDROcod/ACETAM 5/325 MG TABLET PO PRN (06:35)
[2022-08-22 06:47] LABS: CALCIUM 8.7 mg/dL (8.5-10.3); CREATININE 0.8 mg/dL (0.6-1.2)
[2022-08-22] MEDS: INSULIN LISPRO 300 UNIT/3 ML PEN SUBQ SCH ×5 (08:55→20:50)
[2022-08-22] MEDS: metFORMIN 500 MG TABLET PO SCH ×2 (08:56→17:04)
[2022-08-22] MEDS: METOPROLOL TARTRATE 25 MG TABLET PO SCH ×2 (08:56→20:49)
[2022-08-22] MEDS: LOSARTAN 50 MG TABLET PO SCH ×2 (08:57→20:49)
[2022-08-22] MEDS: ERTAPENEM 1 GM in SODIUM CHLORIDE 0.9% MINIBAG 100 ML IV SCH (08:57)
[2022-08-22] MEDS: hydroCHLOROthiazide 25 MG TABLET PO SCH (08:57)
[2022-08-22] MEDS: SACCHAROMYCES BOULARDII 250 MG CAPSULE PO SCH ×2 (08:57→17:04)
[2022-08-22] MEDS: MULTIVITAMIN W/MINERALS TABLET PO SCH (08:57)
[2022-08-22] MEDS: INSULIN 70/30 HUMAN 300 UNIT/3 ML VIAL SUBQ SCH (09:00)
[2022-08-22] MEDS ORDERED: INSULIN LISPRO 300 UNIT/3 ML PEN SUBQ SCH ×2 (12:00→17:00)
--- NOTE | 2022-08-22 13:58 | PROVIDER PROGRESS NOTE ---
Progress Note August 22, 2022 1:39 PM Nursing and I had a discussion about orthopedic notes. We wanted to make sure that the daily dressing changes were going to be instituted. I also reassured him that this does not change the patient going to wound clinic twice a week. There have been no overnight incidents. His vitals are stable. No fever. He does not have any pain in that foot because of dense peripheral neuropathy. There is no chest pain, palpitations, shortness of breath. Eating 100% of breakfast lunch and dinner. Exam: Temperature is 36.5. Heart rate 57. Blood pressure 131/58. Respirations 18. 99% on room air Pleasant, severely over weight male, ambulating in the room. Able to go to the bathroom without an assist. He is tolerating the PICC line was placed yesterday. Diminished breath sounds at the bases but otherwise clear without crackles, rhonchi, wheezing. No increased respiratory effort with speaking to me or getting out of bed. Able to complete full sentences. Regular rate and rhythm Obese pannus, unable to assess for organomegaly but there is normal bowel sounds. Bowel movement August 20 and today. Left foot is the infected foot. Wrapped in Kerlix. Edema of the calf and wyatt down to 2+ from what I can see today. Right foot continues to have edema down to 1+. Lab: Sodium 131, potassium 4, BUN 22, creatinine 0.8 White cell count normal at 8.3. Hemoglobin 9.7. Platelets 666 Admission C-reactive protein was 38.9 on August 09. He was 19.4 on August 14. Today C-reactive protein is 3. I interpret this as improvement in his infection. And we are down to wound healing. Assessment/plan 1. Diabetic foot infection with cellulitis of the left foot, septic arthritis, osteomyelitis. He failed outpatient therapy before coming into the hospital. Antibiotics were started August 09, today's day #14. Antibiotics were Rocephin, changed to Zosyn on the basis of cultures, and Zosyn was changed to ertapenem on August 20. PICC line placed August 20. He has been on probiotics since August 17. For wound healing we also have him on a multivitamin. I am reassured by his C-reactive protein. Lack of fever. And white cell count being normal. At this point infection appears quite well controlled and we will be focusing on wound healing. Plan: Ertapenem to complete antibiotic therapy for a total of 6 weeks of antibiotics per the request of wound center and orthopedics. In discussing the management of this patient, MRI is ominous but orthopedics reassures me that there is no abscess. Current treatment should help this patient. I have spoken to the nurses of what organ to do with the wound. We will remove packing from the ulcers and wounds on a daily basis. Repacked with clean dressings and then wrap with Kerlix. Patient is to remain weightbearing. He will also continue to see wound care on a scheduled basis as already stated by them. I will decrease lab checks to every other day. This gentleman is in the country without proper paperwork. As such his finances are impacting our ability to plan. We would like to have sent him home with IV antibiotics once a day but he does not have the wherewithal to do that quite yet. Case management and social work working carefully with he and his family and moving forward for hopefully discharging him to home with once a day ertapenem through the medical ambulatory clinic. 2. Type 2 diabetes mellitus, uncontrolled, with hyperglycemia, with complications of diabetic foot infection, peripheral neuropathy. He is on a low-carb diet. Current insulin is 70/30. He takes 40 units in the morning, and 15 units at night. After discussing with ict business development manager, and pharmacy, we will be out of 70/30 by the end of today. As such, I am going to discontinue 70/30. I will start Lantus 40 units in the morning. He is currently getting 5 units of short acting insulin with lunch and dinner and I will change to 8 units of lispro with breakfast lunch and dinner. I will also continue sliding scale before meals. Chronic/resolved medical problems Superobesity Right otitis media with Z-Bk completed August 21 Hypertension controlled with metoprolol 25 mg p.o. twice daily, losartan 50 mg p.o. twice daily. Hyponatremia present on admission to 126. Resolved with IV fluids and hydration. Returned today at 131. No change in management at this time. Cough. Chest x-ray was benign. Hypokalemia supplemented and problem has resolved Difficulty swallowing solids. Resolved when cough resolved. Also improved with Reglan.
[2022-08-22] MEDS: ENOXAPARIN 40 MG/0.4 ML SYRINGE SUBQ SCH ×2 (15:39→22:48)
[2022-08-22] MEDS ORDERED: MINERAL OIL/PETROLAT OPHTH OINT EACHEYE PRN (15:55)
[2022-08-22] MEDS ORDERED: INSULIN 70/30 HUMAN 300 UNIT/3 ML VIAL SUBQ SCH (17:00)
[2022-08-22] MEDS: CARBOXYMETHYLCELLULOSE OPHTH DROPS EACHEYE PRN (17:05)
[2022-08-23] MEDS: SODIUM CHLORIDE FLUSH 0.9% 10 ML SYRINGE IVP SCH ×3 (01:52→17:11)
[2022-08-23] MEDS: HYDROcod/ACETAM 5/325 MG TABLET PO PRN (01:52)
[2022-08-23] MEDS: ACETAMINOPHEN 325 MG TABLET PO PRN (05:15)
[2022-08-23] MEDS: PANTOPRAZOLE 40 MG TABLET PO SCH (05:16)
[2022-08-23 05:26] LABS: BASOPHILS % (AUTO) 0.4 %; EOSINOPHILS # (AUTO) 0.2 10^3/uL (0.0-0.7); EOSINOPHILS % (AUTO) 1.8 %; HCT - HEMATOCRIT 31.7 % (42.0-52.0); HGB - HEMOGLOBIN 9.8 g/dL (14.0-18.0); LYMPHOCYTES # (AUTO) 2.4 10^3/uL (1.5-3.5); LYMPHOCYTES % (AUTO) 26.7 %; MEAN CORPUSCULAR HEMOGLOBIN 25.6 pg (27.0-31.0); MEAN CORPUSCULAR HGB CONC 30.9 g/dL (32.0-36.0); MEAN CORPUSCULAR VOLUME 82.8 fL (80.0-94.0); MEAN PLATELET VOLUME 8.9 fL (7.4-11.4); MONOCYTES # (AUTO) 0.7 10^3/uL (0.0-1.0); MONOCYTES % (AUTO) 7.6 %; NEUTROPHILS # (AUTO) 5.8 10^3/uL (1.5-6.6); NEUTROPHILS % (AUTO) 63.1 %; PLT - PLATELET COUNT 648 10^3/uL (130-450); RED BLOOD COUNT 3.83 10^6/uL (4.70-6.10); RED CELL DISTRIBUTION WIDTH 13.8 % (12.0-15.0); WHITE BLOOD COUNT 9.1 x10^3/uL (4.8-10.8)
[2022-08-23 05:40] LABS: CALCIUM 8.9 mg/dL (8.5-10.3); CREATININE 0.9 mg/dL (0.6-1.2); CRP - C-REACTIVE PROTEIN 3.2 mg/dL (0-1.0); POTASSIUM 4.1 mmol/L (3.5-5.0)
[2022-08-23] MEDS: LOSARTAN 50 MG TABLET PO SCH ×2 (08:53→20:45)
[2022-08-23] MEDS: MULTIVITAMIN W/MINERALS TABLET PO SCH (08:53)
[2022-08-23] MEDS: SACCHAROMYCES BOULARDII 250 MG CAPSULE PO SCH ×2 (08:53→17:11)
[2022-08-23] MEDS: hydroCHLOROthiazide 25 MG TABLET PO SCH (08:54)
[2022-08-23] MEDS: METOPROLOL TARTRATE 25 MG TABLET PO SCH ×2 (08:54→20:48)
[2022-08-23] MEDS: INSULIN LISPRO 300 UNIT/3 ML PEN SUBQ SCH ×7 (08:58→20:44)
[2022-08-23] MEDS: metFORMIN 500 MG TABLET PO SCH ×2 (08:59→17:11)
[2022-08-23] MEDS: ENOXAPARIN 40 MG/0.4 ML SYRINGE SUBQ SCH ×2 (09:00→20:46)
[2022-08-23] MEDS: ERTAPENEM 1 GM in SODIUM CHLORIDE 0.9% MINIBAG 100 ML IV SCH (09:04)
[2022-08-23] MEDS: INSULIN GLARGINE-YFGN 300 UNIT/3 ML PEN SUBQ SCH (09:14)
--- NOTE | 2022-08-23 14:44 | PROVIDER PROGRESS NOTE ---
Subjective - Prog Note Date Prog Note Date: 08/23/22 Prog Note Time: 15:00 - Subjective Pt reports feeling: Improved (Patient reports improved swelling on left leg and reports no fever or rashes.) Subjective: Patient is a morbidly obese 42 year old male, with T2DM and foot ulcer on left leg. Patient's blood sugar has been in better control since his admission at the hospital. Patient reports no change in left leg after his wound dressing change at 1400. Patient denies fever, headache, shortness or breath, increased peripheral neuropathy, and abdominal pain. Patient's vitals are stable and he is alert and oriented during visit. Patient is satified with treatment at hospital and is hopeful in making a full recovery as well as establishing a healthy lifestyle. Current Medications - Current Medications Current Medications: Active Medications Acetaminophen (Acetaminophen 325 Mg Tablet) 650 mg PO Q4HR PRN PRN Reason: Pain 1 to 4, or Fever Last Admin: 08/23/22 05:15 Dose: 650 mg Hydrocodone Bitart/Acetaminophen (Hydrocod/Acetam 10 Mg/325 Mg Tablet) 1 tab PO Q4HR PRN PRN Reason: Pain 8 to 10 Last Admin: 08/19/22 11:45 Dose: 1 tab Hydrocodone Bitart/Acetaminophen (Hydrocod/Acetam 5/325 Mg Tablet) 1 tab PO Q4HR PRN PRN Reason: Pain 5 to 7 Last Admin: 08/23/22 01:52 Dose: 1 tab Carboxymethylcellulose (Carboxymethylcellulose Ophth Drops) 1 drops EACHEYE PRN PRN PRN Reason: Dry Eye Last Admin: 08/22/22 17:05 Dose: 1 drops Enoxaparin Sodium (Enoxaparin 40 Mg/0.4 Ml Syringe) 40 mg SUBQ BID [facility] Last Admin: 08/23/22 09:00 Dose: 40 mg Hydrochlorothiazide (Hydrochlorothiazide 25 Mg Tablet) 25 mg PO DAILY [facility] Last Admin: 08/23/22 08:54 Dose: 25 mg Ertapenem 1 gm/ Sodium (Chloride) 100 mls @ 200 mls/hr IV DAILY [facility] Last Infusion: 08/23/22 10:10 Dose: Infused Ibuprofen (Ibuprofen 400 Mg Tablet) 400 mg PO Q6HR PRN PRN Reason: PAIN Insulin Glargine-yfgn (Insulin Glargine-Yfgn 300 Unit/3 Ml Pen) 40 unit SUBQ DAILY [facility] Last Admin: 08/23/22 09:14 Dose: 40 unit Insulin Human Lispro (Insulin Lispro 300 Unit/3 Ml Pen) 5 unit SUBQ TIDWM [facility] Last Admin: 08/23/22 12:08 Dose: 5 unit Insulin Human Lispro (Insulin Lispro 300 Unit/3 Ml Pen) 1 - 9 unit SUBQ 0800,1200,1700,2100 [facility]; Protocol Last Admin: 08/23/22 12:08 Dose: 5 unit Losartan Potassium (Losartan 50 Mg Tablet) 50 mg PO BID [facility] Last Admin: 08/23/22 08:53 Dose: 50 mg Metformin HCl (Metformin 500 Mg Tablet) 1,000 mg PO BIDWM [facility] Last Admin: 08/23/22 08:59 Dose: 1,000 mg Metoclopramide HCl (Metoclopramide 10 Mg/2 Ml Vial) 5 mg IVP Q6HR PRN PRN Reason: NEEDED PER PROVIDER ORDERS Last Admin: 08/11/22 23:00 Dose: 5 mg Metoprolol Tartrate (Metoprolol Tartrate 25 Mg Tablet) 25 mg PO BID [facility] Last Admin: 08/23/22 08:54 Dose: 25 mg Multi-Ingred Cream/Lotion/Oil/Oint (Mineral Oil/Petrolat Ophth Oint) 1 applic EACHEYE QPM PRN PRN Reason: Dry Eye Multi-Ingredient Ointment (Zinc Oxide 20% Oint 30 Gm Tube) 1 applic TOP PRN PRN PRN Reason: Skin Care Last Admin: 08/13/22 18:46 Dose: 1 applic Multivitamins/Minerals (Multivitamin W/Minerals Tablet) 1 tab PO DAILYWM [facility] Last Admin: 08/23/22 08:53 Dose: 1 tab Ondansetron HCl (Ondansetron 4 Mg/2 Ml Vial) 4 mg IVP Q6HR PRN PRN Reason: Nausea / Vomiting Last Admin: 08/16/22 08:38 Dose: 4 mg Pantoprazole Sodium (Pantoprazole 40 Mg Tablet) 40 mg PO QDAC [facility] Last Admin: 08/23/22 05:16 Dose: 40 mg Saccharomyces Boulardii (Saccharomyces Boulardii 250 Mg Capsule) 250 mg PO BIDWM [facility] Last Admin: 08/23/22 08:53 Dose: 250 mg Sodium Chloride (Sodium Chloride Flush 0.9% 10 Ml Syringe) 10 ml IVP PRN PRN PRN Reason: NEEDED PER PROVIDER ORDERS Last Admin: 08/17/22 10:22 Dose: 10 ml Sodium Chloride (Sodium Chloride Flush 0.9% 10 Ml Syringe) 10 ml IVP 0100,0900,1700 [facility] Last Admin: 08/23/22 09:00 Dose: 10 ml Throat Lozenges (Benzocaine/Menthol Lozenge) 1 lozenge MM Q2HR PRN PRN Reason: Throat pain Last Admin: 08/17/22 16:28 Dose: 1 lozenge Losartan [Cozaar] 50 mg PO BID 08/09/22 Omeprazole 40 mg PO DAILY 08/09/22 hydroCHLOROthiazide [Hydrodiuril] 25 mg PO DAILY 08/10/22 metFORMIN [Glucophage] 850 mg PO TIDWM 08/10/22 Objective - Vital Signs/Intake & Output Reviewed Vital Signs: Yes Vital Signs: Vital Signs x48h Temp Pulse Resp BP BP Pulse Ox 08/23/22 08:54 119/66 08/23/22 08:00 36.5 C 69 18 119/66 97 Intake & Output: Intake & Output 08/20/22 08/21/22 08/22/22 08/23/22 23:59 23:59 23:59 23:59 Intake Total 9315 608 9080 1999 Balance 4576 602 3401 1999 - Objective General Appearance: positive: No acute distress, Alert Eyes Bilateral: positive: Normal inspection ENT: positive: ENT inspection nml, No signs of dehydration Neck: positive: Nml inspection, Thyroid nml Respiratory: positive: Chest non-tender, No respiratory distress, Breath sounds nml Cardiovascular: positive: Regular rate & rhythm, No murmur, No gallop Abdomen: positive: Non-tender Back: positive: Nml inspection Skin: positive: Color nml, No rash Extremities: positive: Pedal edema (Slightly improved pitting edema.), Other (Diabetic foot ulcer on lateral left foot. Covered by wound dressing during exam.) Neurologic/Psychiatric: positive: Oriented x3 - Lab Results Fish Bones: 08/23/22 05:10 08/23/22 05:10 Other Labs: Lab Results x24hrs 08/23/22 08/23/22 08/23/22 Range/Units 11:24 07:42 05:10 WBC (4.8-10.8) x10^3/uL RBC (4.70-6.10) 10^6/uL Hgb (14.0-18.0) g/dL Hct (42.0-52.0) % MCV (80.0-94.0) fL MCH (27.0-31.0) pg MCHC (32.0-36.0) g/dL RDW (12.0-15.0) % Plt Count (130-450) 10^3/uL MPV (7.4-11.4) fL Neut # (Auto) (1.5-6.6) 10^3/uL Lymph # (Auto) (1.5-3.5) 10^3/uL [place] # (Auto) (0.0-1.0) 10^3/uL Eos # (Auto) (0.0-0.7) 10^3/uL Baso # (Auto) (0.0-0.1) 10^3/uL Absolute Nucleated RBC x10^3/uL Nucleated RBC % /100WBC Sodium 134 L (135-145) mmol/L Potassium 4.1 (3.5-5.0) mmol/L Chloride 98 L (101-111) mmol/L Carbon Dioxide 27 (21-32) mmol/L Anion Gap 9.0 (6-13) BUN 25 H (6-20) mg/dL Creatinine 0.9 (0.6-1.2) mg/dL Estimated GFR (MDRD) 93 (>89) Glucose 131 H (70-100) mg/dL POC Whole Bld Glucose 252 H 153 H (70 - 100) mg/dL Calcium 8.9 (8.5-10.3) mg/dL C-Reactive Protein 3.2 H (0-1.0) mg/dL 08/23/22 08/22/22 08/22/22 Range/Units 05:10 20:49 16:22 WBC 9.1 (4.8-10.8) x10^3/uL RBC 3.83 L (4.70-6.10) 10^6/uL Hgb 9.8 L (14.0-18.0) g/dL Hct 31.7 L (42.0-52.0) % MCV 82.8 (80.0-94.0) fL MCH 25.6 L (27.0-31.0) pg MCHC 30.9 L (32.0-36.0) g/dL RDW 13.8 (12.0-15.0) % Plt Count 648 H (130-450) 10^3/uL MPV 8.9 (7.4-11.4) fL Neut # (Auto) 5.8 (1.5-6.6) 10^3/uL Lymph # (Auto) 2.4 (1.5-3.5) 10^3/uL [place] # (Auto) 0.7 (0.0-1.0) 10^3/uL Eos # (Auto) 0.2 (0.0-0.7) 10^3/uL Baso # (Auto) 0.0 (0.0-0.1) 10^3/uL Absolute Nucleated RBC 0.00 x10^3/uL Nucleated RBC % 0.0 /100WBC Sodium (135-145) mmol/L Potassium (3.5-5.0) mmol/L Chloride (101-111) mmol/L Carbon Dioxide (21-32) mmol/L Anion Gap (6-13) BUN (6-20) mg/dL Creatinine (0.6-1.2) mg/dL Estimated GFR (MDRD) (>89) Glucose (70-100) mg/dL POC Whole Bld Glucose 114 H 126 H (70 - 100) mg/dL Calcium (8.5-10.3) mg/dL C-Reactive Protein (0-1.0) mg/dL 08/22/22 Range/Units 15:06 WBC (4.8-10.8) x10^3/uL RBC (4.70-6.10) 10^6/uL Hgb (14.0-18.0) g/dL Hct (42.0-52.0) % MCV (80.0-94.0) fL MCH (27.0-31.0) pg MCHC (32.0-36.0) g/dL RDW (12.0-15.0) % Plt Count (130-450) 10^3/uL MPV (7.4-11.4) fL Neut # (Auto) (1.5-6.6) 10^3/uL Lymph # (Auto) (1.5-3.5) 10^3/uL [place] # (Auto) (0.0-1.0) 10^3/uL Eos # (Auto) (0.0-0.7) 10^3/uL Baso # (Auto) (0.0-0.1) 10^3/uL Absolute Nucleated RBC x10^3/uL Nucleated RBC % /100WBC Sodium (135-145) mmol/L Potassium (3.5-5.0) mmol/L Chloride (101-111) mmol/L Carbon Dioxide (21-32) mmol/L Anion Gap (6-13) BUN (6-20) mg/dL Creatinine (0.6-1.2) mg/dL Estimated GFR (MDRD) (>89) Glucose (70-100) mg/dL POC Whole Bld Glucose 93 (70 - 100) mg/dL Calcium (8.5-10.3) mg/dL C-Reactive Protein (0-1.0) mg/dL ABX Reporting Has patient been on IV antibiotics over the past 48 hours?: Yes Sepsis Event Note (H) - Evaluation Current Stage of Sepsis: Ruled out Assessment/Plan - Problem List (1) Chronic diabetic ulcer of left foot determined by examination Impression: Patients swelling has improved since starting ertapenem on August 20. Patient reports decreased tenderness to left calf and denies fever and rashes. Patient wound appears to be healing as it should and patient has no complaints about his care. Plan: Complete ertapenem antibiotic therapy for a total of 6 weeks and continue on probiotics. Continue with daily wound dressing changes and monitor patients ulcer. Wrap wound with Kerlix. Patient to remain weightbearing. Labs to be drawn every other day. Continue with controlled diet and insulin therapy. (2) Poorly controlled diabetes mellitus Impression: Patients glucose levels have drastically improved since admission. Patient reports feeling better with food given to him by hospital and feels encouraged to make lifestyle changes when he is discharged from hospital. Plan Continue current insulin medication regimen. Continue sliding scale before meals. Continue on controlled diet. Continue to draw CMP and CBC every other day.
[2022-08-23] MEDS: IBUPROFEN 400 MG TABLET PO PRN ×2 (14:58→20:48)
[2022-08-23] MEDS: SODIUM CHLORIDE FLUSH 0.9% 10 ML SYRINGE IVP PRN (17:11)
[2022-08-24] MEDS: SODIUM CHLORIDE FLUSH 0.9% 10 ML SYRINGE IVP SCH ×3 (00:40→16:15)
[2022-08-24] MEDS: SODIUM CHLORIDE FLUSH 0.9% 10 ML SYRINGE IVP PRN ×2 (00:41→16:15)
[2022-08-24] MEDS: PANTOPRAZOLE 40 MG TABLET PO SCH (06:19)
[2022-08-24] MEDS: IBUPROFEN 400 MG TABLET PO PRN ×3 (06:29→20:53)
[2022-08-24 06:34] LABS: BASOPHILS % (AUTO) 0.5 %; EOSINOPHILS # (AUTO) 0.2 10^3/uL (0.0-0.7); HCT - HEMATOCRIT 31.8 % (42.0-52.0); HGB - HEMOGLOBIN 9.9 g/dL (14.0-18.0); LYMPHOCYTES # (AUTO) 2.2 10^3/uL (1.5-3.5); LYMPHOCYTES % (AUTO) 29.4 %; MEAN CORPUSCULAR HEMOGLOBIN 25.8 pg (27.0-31.0); MEAN CORPUSCULAR HGB CONC 31.1 g/dL (32.0-36.0); MEAN PLATELET VOLUME 8.9 fL (7.4-11.4); MONOCYTES # (AUTO) 0.6 10^3/uL (0.0-1.0); MONOCYTES % (AUTO) 7.5 %; NEUTROPHILS # (AUTO) 4.6 10^3/uL (1.5-6.6); NEUTROPHILS % (AUTO) 60.3 %; PLT - PLATELET COUNT 589 10^3/uL (130-450); RED BLOOD COUNT 3.83 10^6/uL (4.70-6.10); RED CELL DISTRIBUTION WIDTH 13.6 % (12.0-15.0); WHITE BLOOD COUNT 7.6 x10^3/uL (4.8-10.8)
[2022-08-24 06:52] LABS: CALCIUM 8.8 mg/dL (8.5-10.3); CREATININE 0.9 mg/dL (0.6-1.2); CRP - C-REACTIVE PROTEIN 3.7 mg/dL (0-1.0); POTASSIUM 4.2 mmol/L (3.5-5.0)
[2022-08-24 07:41] LABS: ABSOLUTE RETICS # AUTO 0.046 10^6/uL (0.020-0.110); RED BLOOD COUNT 3.91 10^6/uL (4.70-6.10); RETICULOCYTE COUNT % (AUTO) 1.17 % (0.5-2.3)
[2022-08-24] MEDS: LOSARTAN 50 MG TABLET PO SCH ×2 (08:21→20:53)
[2022-08-24] MEDS: METOPROLOL TARTRATE 25 MG TABLET PO SCH ×2 (08:21→20:53)
[2022-08-24] MEDS: SACCHAROMYCES BOULARDII 250 MG CAPSULE PO SCH ×2 (08:22→17:01)
[2022-08-24] MEDS: FERROUS GLUCONATE 324 MG TABLET PO SCH (08:22)
[2022-08-24] MEDS: ASCORBIC ACID 500 MG TABLET PO SCH (08:22)
[2022-08-24] MEDS: metFORMIN 500 MG TABLET PO SCH ×2 (08:22→17:00)
[2022-08-24] MEDS: hydroCHLOROthiazide 25 MG TABLET PO SCH (08:22)
[2022-08-24] MEDS: MULTIVITAMIN W/MINERALS TABLET PO SCH (08:22)
[2022-08-24] MEDS: ENOXAPARIN 40 MG/0.4 ML SYRINGE SUBQ SCH ×2 (08:23→20:53)
[2022-08-24] MEDS: INSULIN LISPRO 300 UNIT/3 ML PEN SUBQ SCH ×7 (08:23→20:53)
[2022-08-24] MEDS: INSULIN GLARGINE-YFGN 300 UNIT/3 ML PEN SUBQ SCH (08:24)
[2022-08-24] MEDS: ERTAPENEM 1 GM in SODIUM CHLORIDE 0.9% MINIBAG 100 ML IV SCH (08:28)
[2022-08-24 09:17] LABS: % IRON SATURATION 9 % (20-50); IRON 24 ug/dL (45-182); TOTAL IRON BINDING CAPACITY 273 ug/dL (250-450); TRANSFERRIN 195 mg/dL (180-329)
[2022-08-24 09:46] LABS: FERRITIN 95.4 ng/mL (23.9-336.2)
--- NOTE | 2022-08-24 14:49 | PROVIDER PROGRESS NOTE ---
Subjective - Prog Note Date Prog Note Date: 08/24/22 Prog Note Time: 14:35 - Subjective Pt reports feeling: Improved (Patient's mother was visiting him during visit and patient seemed in a good mood. Patient is satisified with treatment at hospital.) Subjective: Patient is a morbidly obese male who has been admitted to the hospital since August 09 2022. Patient has previously uncontrolled type 2 diabetes that is now controlled with hospital dietitians food restrictions. Patient has no new concerns with current insulin regimen and denies fatigue and abdominal pain. Patient has a diabetic foot ulcer that requires daily dressing change on his left foot. No obvious signs of new infection was noted on exam. Plantar ulcer at the base of fifth toe has no signs of redness or drainage. The lateral aspect of left foot has tunneling. The dressing at this site had greenish-yellowish thick fluid when taken out. The skin surrounding this wound is white and dry. The ulcer toward his ankle on his lateral foot is improving and shows no new signs of infection. Patients wound dressing was placed at the end of the visit. Ertapenem seems to be effective in this patient and patient does not report any rashes or uticaria. Patient is capable of limited movement but is mainly sedentary. Patient placed on lovenox that was adjusted by pharmacy for his weight. Patient is tolerating medication well. Current Medications - Current Medications Current Medications: Active Medications Acetaminophen (Acetaminophen 325 Mg Tablet) 650 mg PO Q4HR PRN PRN Reason: Pain 1 to 4, or Fever Last Admin: 08/23/22 05:15 Dose: 650 mg Hydrocodone Bitart/Acetaminophen (Hydrocod/Acetam 10 Mg/325 Mg Tablet) 1 tab PO Q4HR PRN PRN Reason: Pain 8 to 10 Last Admin: 08/19/22 11:45 Dose: 1 tab Hydrocodone Bitart/Acetaminophen (Hydrocod/Acetam 5/325 Mg Tablet) 1 tab PO Q4HR PRN PRN Reason: Pain 5 to 7 Last Admin: 08/23/22 01:52 Dose: 1 tab Ascorbic Acid (Ascorbic Acid 500 Mg Tablet) 500 mg PO DAILYWM [facility] Last Admin: 08/24/22 08:22 Dose: 500 mg Carboxymethylcellulose (Carboxymethylcellulose Ophth Drops) 1 drops EACHEYE PRN PRN PRN Reason: Dry Eye Last Admin: 02/17/23 17:05 Dose: 1 drops Enoxaparin Sodium (Enoxaparin 40 Mg/0.4 Ml Syringe) 40 mg SUBQ BID [facility] Last Admin: 08/24/22 08:23 Dose: 40 mg Ferrous Gluconate (Ferrous Gluconate 324 Mg Tablet) 324 mg PO DAILYWM [facility] Last Admin: 08/24/22 08:22 Dose: 324 mg Hydrochlorothiazide (Hydrochlorothiazide 25 Mg Tablet) 25 mg PO DAILY [facility] Last Admin: 08/24/22 08:22 Dose: 25 mg Ertapenem 1 gm/ Sodium (Chloride) 100 mls @ 200 mls/hr IV DAILY [facility] Last Infusion: 08/24/22 13:10 Dose: Infused Ibuprofen (Ibuprofen 400 Mg Tablet) 400 mg PO Q6HR PRN PRN Reason: PAIN Last Admin: 08/24/22 13:37 Dose: 400 mg Insulin Glargine-yfgn (Insulin Glargine-Yfgn 300 Unit/3 Ml Pen) 40 unit SUBQ DAILY [facility] Last Admin: 08/24/22 08:24 Dose: 40 unit Insulin Human Lispro (Insulin Lispro 300 Unit/3 Ml Pen) 1 - 9 unit SUBQ 0800,1200,1700,2100 [facility]; Protocol Last Admin: 08/24/22 12:16 Dose: 5 unit Insulin Human Lispro (Insulin Lispro 300 Unit/3 Ml Pen) 8 unit SUBQ TIDWM [facility] Last Admin: 08/24/22 12:15 Dose: 8 unit Losartan Potassium (Losartan 50 Mg Tablet) 50 mg PO BID [facility] Last Admin: 08/24/22 08:21 Dose: 50 mg Metformin HCl (Metformin 500 Mg Tablet) 1,000 mg PO BIDWM [facility] Last Admin: 08/24/22 08:22 Dose: 1,000 mg Metoclopramide HCl (Metoclopramide 10 Mg/2 Ml Vial) 5 mg IVP Q6HR PRN PRN Reason: NEEDED PER PROVIDER ORDERS Last Admin: 08/11/22 23:00 Dose: 5 mg Metoprolol Tartrate (Metoprolol Tartrate 25 Mg Tablet) 25 mg PO BID [facility] Last Admin: 08/24/22 08:21 Dose: 25 mg Multi-Ingred Cream/Lotion/Oil/Oint (Mineral Oil/Petrolat Ophth Oint) 1 applic EACHEYE QPM PRN PRN Reason: Dry Eye Last Admin: 08/23/22 20:49 Dose: 1 applic Multi-Ingredient Ointment (Zinc Oxide 20% Oint 30 Gm Tube) 1 applic TOP PRN PRN PRN Reason: Skin Care Last Admin: 08/13/22 18:46 Dose: 1 applic Multivitamins/Minerals (Multivitamin W/Minerals Tablet) 1 tab PO DAILYWM [facility] Last Admin: 08/24/22 08:22 Dose: 1 tab Ondansetron HCl (Ondansetron 4 Mg/2 Ml Vial) 4 mg IVP Q6HR PRN PRN Reason: Nausea / Vomiting Last Admin: 08/16/22 08:38 Dose: 4 mg Pantoprazole Sodium (Pantoprazole 40 Mg Tablet) 40 mg PO QDAC [facility] Last Admin: 08/24/22 06:19 Dose: 40 mg Saccharomyces Boulardii (Saccharomyces Boulardii 250 Mg Capsule) 250 mg PO BIDWM [facility] Last Admin: 08/24/22 08:22 Dose: 250 mg Sodium Chloride (Sodium Chloride Flush 0.9% 10 Ml Syringe) 10 ml IVP PRN PRN PRN Reason: NEEDED PER PROVIDER ORDERS Last Admin: 08/24/22 00:41 Dose: 10 ml Sodium Chloride (Sodium Chloride Flush 0.9% 10 Ml Syringe) 10 ml IVP 010 0,0900,1700 [facility] Last Admin: 08/24/22 08:28 Dose: 10 ml Throat Lozenges (Benzocaine/Menthol Lozenge) 1 lozenge MM Q2HR PRN PRN Reason: Throat pain Last Admin: 08/17/22 16:28 Dose: 1 lozenge Losartan [Cozaar] 50 mg PO BID 08/09/22 Omeprazole 40 mg PO DAILY 08/09/22 hydroCHLOROthiazide [Hydrodiuril] 25 mg PO DAILY 08/10/22 metFORMIN [Glucophage] 850 mg PO TIDWM 08/10/22 Objective - Vital Signs/Intake & Output Reviewed Vital Signs: Yes Vital Signs: Vital Signs x48h Temp Pulse Resp BP BP Pulse Ox 08/24/22 08:21 116/69 08/24/22 08:00 36.7 C 68 18 116/69 96 Intake & Output: Intake & Output 08/21/22 08/22/22 08/23/22 08/24/22 23:59 23:59 23:59 23:59 Intake Total 780 7628 2540 1320 Balance 780 1078 2540 1320 - Objective General Appearance: positive: No acute distress, Alert Eyes Bilateral: positive: Normal inspection, PERRL ENT: positive: ENT inspection nml, No signs of dehydration Neck: positive: Nml inspection, Thyroid nml, No JVD Respiratory: positive: Chest non-tender, No respiratory distress, Breath sounds nml Cardiovascular: positive: Regular rate & rhythm, No murmur, No gallop Abdomen: positive: Non-tender Back: positive: Nml inspection Skin: positive: Color nml, No rash, Warm Extremities: positive: Other (Diabetic foot ulcers on left foot. No signs of new infection and has daily dressing chage.) Neurologic/Psychiatric: positive: Oriented x3, Motor nml, Sensation nml, Mood/affect nml - Lab Results Fish Bones: 08/24/22 06:10 08/24/22 06:10 Other Labs: Lab Results x24hrs 08/24/22 08/24/22 08/24/22 Range/Units 11:35 07:53 06:10 WBC (4.8-10.8) x10^3/uL RBC (4.70-6.10) 10^6/uL Hgb (14.0-18.0) g/dL Hct (42.0-52.0) % MCV (80.0-94.0) fL MCH (27.0-31.0) pg MCHC (32.0-36.0) g/dL RDW (12.0-15.0) % Plt Count (130-450) 10^3/uL MPV (7.4-11.4) fL Reticulocyte % (Auto) (0.5-2.3) % Neut # (Auto) (1.5-6.6) 10^3/uL Lymph # (Auto) (1.5-3.5) 10^3/uL [place] # (Auto) (0.0-1.0) 10^3/uL Eos # (Auto) (0.0-0.7) 10^3/uL Baso # (Auto) (0.0-0.1) 10^3/uL Absolute Nucleated RBC x10^3/uL Nucleated RBC % /100WBC Absolute Retic (0.020-0.110) 10^6/uL Sodium 132 L (135-145) mmol/L Potassium 4.2 (3.5-5.0) mmol/L Chloride 97 L (101-111) mmol/L Carbon Dioxide 28 (21-32) mmol/L Anion Gap 7.0 (6-13) BUN 28 H (6-20) mg/dL Creatinine 0.9 (0.6-1.2) mg/dL Estimated GFR (MDRD) 93 (>89) Glucose 199 H (70-100) mg/dL POC Whole Bld Glucose 265 H 193 H (70 - 100) mg/dL Calcium 8.8 (8.5-10.3) mg/dL Iron (45-182) ug/dL TIBC (250-450) ug/dL % Saturation (20-50) % Transferrin (180-329) mg/dL Ferritin (23.9-336.2) ng/mL Lactate Dehydrogenase (91-225) IU/L C-Reactive Protein 3.7 H (0-1.0) mg/dL Vitamin B12 (180-914) pg/mL 08/24/22 08/24/22 08/24/22 Range/Units 06:10 04:19 04:19 WBC 7.6 (4.8-10.8) x10^3/uL RBC 3.83 L (4.70-6.10) 10^6/uL Hgb 9.9 L (14.0-18.0) g/dL Hct 31.8 L (42.0-52.0) % MCV 83.0 (80.0-94.0) fL MCH 25.8 L (27.0-31.0) pg MCHC 31.1 L (32.0-36.0) g/dL RDW 13.6 (12.0-15.0) % Plt Count 589 H (130-450) 10^3/uL MPV 8.9 (7.4-11.4) fL Reticulocyte % (Auto) (0.5-2.3) % Neut # (Auto) 4.6 (1.5-6.6) 10^3/uL Lymph # (Auto) 2.2 (1.5-3.5) 10^3/uL [place] # (Auto) 0.6 (0.0-1.0) 10^3/uL Eos # (Auto) 0.2 (0.0-0.7) 10^3/uL Baso # (Auto) 0.0 (0.0-0.1) 10^3/uL Absolute Nucleated RBC 0.00 x10^3/uL Nucleated RBC % 0.0 /100WBC Absolute Retic (0.020-0.110) 10^6/uL Sodium (135-145) mmol/L Potassium (3.5-5.0) mmol/L Chloride (101-111) mmol/L Carbon Dioxide (21-32) mmol/L Anion Gap (6-13) BUN (6-20) mg/dL Creatinine (0.6-1.2) mg/dL Estimated GFR (MDRD) (>89) Glucose (70-100) mg/dL POC Whole Bld Glucose (70 - 100) mg/dL Calcium (8.5-10.3) mg/dL Iron 27 L (45-182) ug/dL TIBC (250-450) ug/dL % Saturation (20-50) % Transferrin (180-329) mg/dL Ferritin (23.9-336.2) ng/mL Lactate Dehydrogenase 100 (91-225) IU/L C-Reactive Protein (0-1.0) mg/dL Vitamin B12 (180-914) pg/mL 08/24/22 08/24/22 08/24/22 Range/Units 04:19 04:19 04:19 WBC (4.8-10.8) x10^3/uL RBC 3.91 L (4.70-6.10) 10^6/uL Hgb (14.0-18.0) g/dL Hct (42.0-52.0) % MCV (80.0-94.0) fL MCH (27.0-31.0) pg MCHC (32.0-36.0) g/dL RDW (12.0-15.0) % Plt Count (130-450) 10^3/uL MPV (7.4-11.4) fL Reticulocyte % (Auto) 1.17 (0.5-2.3) % Neut # (Auto) (1.5-6.6) 10^3/uL Lymph # (Auto) (1.5-3.5) 10^3/uL [place] # (Auto) (0.0-1.0) 10^3/uL Eos # (Auto) (0.0-0.7) 10^3/uL Baso # (Auto) (0.0-0.1) 10^3/uL Absolute Nucleated RBC x10^3/uL Nucleated RBC % /100WBC Absolute Retic 0.046 (0.020-0.110) 10^6/uL Sodium (135-145) mmol/L Potassium (3.5-5.0) mmol/L Chloride (101-111) mmol/L Carbon Dioxide (21-32) mmol/L Anion Gap (6-13) BUN (6-20) mg/dL Creatinine (0.6-1.2) mg/dL Estimated GFR (MDRD) (>89) Glucose (70-100) mg/dL POC Whole Bld Glucose (70 - 100) mg/dL Calcium (8.5-10.3) mg/dL Iron 24 L (45-182) ug/dL TIBC 273 (250-450) ug/dL % Saturation 9 L (20-50) % Transferrin 195 (180-329) mg/dL Ferritin 95.4 (23.9-336.2) ng/mL Lactate Dehydrogenase (91-225) IU/L C-Reactive Protein (0-1.0) mg/dL Vitamin B12 201 (180-914) pg/mL 08/23/22 08/23/22 Range/Units 20:25 16:11 WBC (4.8-10.8) x10^3/uL RBC (4.70-6.10) 10^6/uL Hgb (14.0-18.0) g/dL Hct (42.0-52.0) % MCV (80.0-94.0) fL MCH (27.0-31.0) pg MCHC (32.0-36.0) g/dL RDW (12.0-15.0) % Plt Count (130-450) 10^3/uL MPV (7.4-11.4) fL Reticulocyte % (Auto) (0.5-2.3) % Neut # (Auto) (1.5-6.6) 10^3/uL Lymph # (Auto) (1.5-3.5) 10^3/uL [place] # (Auto) (0.0-1.0) 10^3/uL Eos # (Auto) (0.0-0.7) 10^3/uL Baso # (Auto) (0.0-0.1) 10^3/uL Absolute Nucleated RBC x10^3/uL Nucleated RBC % /100WBC Absolute Retic (0.020-0.110) 10^6/uL Sodium (135-145) mmol/L Potassium (3.5-5.0) mmol/L Chloride (101-111) mmol/L Carbon Dioxide (21-32) mmol/L Anion Gap (6-13) BUN (6-20) mg/dL Creatinine (0.6-1.2) mg/dL Estimated GFR (MDRD) (>89) Glucose (70-100) mg/dL POC Whole Bld Glucose 148 H 140 H (70 - 100) mg/dL Calcium (8.5-10.3) mg/dL Iron (45-182) ug/dL TIBC (250-450) ug/dL % Saturation (20-50) % Transferrin (180-329) mg/dL Ferritin (23.9-336.2) ng/mL Lactate Dehydrogenase (91-225) IU/L C-Reactive Protein (0-1.0) mg/dL Vitamin B12 (180-914) pg/mL ABX Reporting Has patient been on IV antibiotics over the past 48 hours?: Yes Sepsis Event Note (H) - Evaluation Current Stage of Sepsis: Ruled out Assessment/Plan - Problem List (1) Chronic diabetic ulcer of left foot determined by examination Impression: Patient has improved swelling and redness since starting ertapenem on August 20. Patient reports tolerating medication well and reports decreased tenderness to left calf and denies fever and rashes. Patient receives daily wound dressing changes and wound appears to be improving with no new signs of infection. Plan: Complete ertapenem antibiotic therapy for a total of 6 weeks and continue on probiotics Continue with daily wound dressing changes and monitor patients ulcer. Wrap wound with Kerlix Patient to remain weightbearing Labs to be drawn every other day Continue with controlled diet and insulin therapy (2) Poorly controlled diabetes mellitus Impression: Patient glucose levels have increased slightly since yesterday but still improved since admission. Patient reports feeling well rested and satisfied with treatment and food from hospital. Patient reports a willingness to commit to l ifestyle changes upon discharge from hospital. Plan Continue current insulin therapy Continue on sliding scale before meals Continue on controlled diet Continue to draw CMP and CBC every other day.
[2022-08-24] MEDS: SYSTANE EYE DROPS EACHEYE PRN (16:15)
[2022-08-24] MEDS ORDERED: ALTEPLASE 2 MG VIAL IJ ONE (16:22)
[2022-08-25] MEDS: SODIUM CHLORIDE FLUSH 0.9% 10 ML SYRINGE IVP SCH ×5 (00:03→21:31)
[2022-08-25] MEDS: HYDROcod/ACETAM 5/325 MG TABLET PO PRN (03:41)
[2022-08-25] MEDS: PANTOPRAZOLE 40 MG TABLET PO SCH (05:49)
[2022-08-25] MEDS: SODIUM CHLORIDE FLUSH 0.9% 10 ML SYRINGE IVP PRN (05:50)
[2022-08-25 06:21] LABS: BASOPHILS % (AUTO) 0.5 %; EOSINOPHILS # (AUTO) 0.2 10^3/uL (0.0-0.7); EOSINOPHILS % (AUTO) 2.2 %; HCT - HEMATOCRIT 34.4 % (42.0-52.0); HGB - HEMOGLOBIN 10.9 g/dL (14.0-18.0); LYMPHOCYTES # (AUTO) 2.1 10^3/uL (1.5-3.5); LYMPHOCYTES % (AUTO) 28.1 %; MEAN CORPUSCULAR HEMOGLOBIN 26.2 pg (27.0-31.0); MEAN CORPUSCULAR HGB CONC 31.7 g/dL (32.0-36.0); MEAN CORPUSCULAR VOLUME 82.7 fL (80.0-94.0); MEAN PLATELET VOLUME 9.1 fL (7.4-11.4); MONOCYTES # (AUTO) 0.4 10^3/uL (0.0-1.0); MONOCYTES % (AUTO) 5.8 %; NEUTROPHILS # (AUTO) 4.8 10^3/uL (1.5-6.6); NEUTROPHILS % (AUTO) 63.1 %; PLT - PLATELET COUNT 616 10^3/uL (130-450); RED BLOOD COUNT 4.16 10^6/uL (4.70-6.10); RED CELL DISTRIBUTION WIDTH 13.9 % (12.0-15.0); WHITE BLOOD COUNT 7.6 x10^3/uL (4.8-10.8)
[2022-08-25 06:36] LABS: CALCIUM 9.8 mg/dL (8.5-10.3); CREATININE 0.9 mg/dL (0.6-1.2); POTASSIUM 4.6 mmol/L (3.5-5.0)
[2022-08-25] MEDS: ASCORBIC ACID 500 MG TABLET PO SCH (08:37)
[2022-08-25] MEDS: LOSARTAN 50 MG TABLET PO SCH ×2 (08:37→21:22)
[2022-08-25] MEDS: hydroCHLOROthiazide 25 MG TABLET PO SCH (08:37)
[2022-08-25] MEDS: FERROUS GLUCONATE 324 MG TABLET PO SCH (08:37)
[2022-08-25] MEDS: SACCHAROMYCES BOULARDII 250 MG CAPSULE PO SCH ×2 (08:38→16:42)
[2022-08-25] MEDS: ERTAPENEM 1 GM in SODIUM CHLORIDE 0.9% MINIBAG 100 ML IV SCH (08:38)
[2022-08-25] MEDS: MULTIVITAMIN W/MINERALS TABLET PO SCH (08:38)
[2022-08-25] MEDS: metFORMIN 500 MG TABLET PO SCH ×2 (08:38→16:45)
[2022-08-25] MEDS: METOPROLOL TARTRATE 25 MG TABLET PO SCH ×2 (08:38→21:22)
[2022-08-25] MEDS: ENOXAPARIN 40 MG/0.4 ML SYRINGE SUBQ SCH ×2 (08:39→21:22)
[2022-08-25] MEDS: INSULIN LISPRO 300 UNIT/3 ML PEN SUBQ SCH ×7 (08:47→22:27)
[2022-08-25] MEDS: INSULIN GLARGINE-YFGN 300 UNIT/3 ML PEN SUBQ SCH (08:48)
[2022-08-25] MEDS: IBUPROFEN 400 MG TABLET PO PRN ×2 (13:32→21:30)
[2022-08-25] MEDS: SYSTANE EYE DROPS EACHEYE PRN (13:33)
--- NOTE | 2022-08-25 13:46 | PROVIDER PROGRESS NOTE ---
Subjective - General Admit Date: 08/09/22 Procedure Performed: No surgery performed - Review of Systems General: positive: No symptoms - Other Other Information/Narrative: The patient states he feels improved. He has no discomfort to the lower leg, better sensation to his foot. He denies fever or chills. Objective - Patient Data Vital Signs: Vital Signs x48h Temp Pulse Resp BP BP Pulse Ox 08/25/22 08:38 137/65 H 08/25/22 08:00 36.4 C L 68 18 137/65 H 98 Intake & Output: Intake and Output Totals x24h 08/23/22 08/24/22 08/25/22 23:59 23:59 23:59 Intake Total 2540 1320 340 Balance 2540 1320 340 - Lab Results Lab Results: 08/25/22 05:45 08/25/22 05:45 Other Lab Results: Lab Results x24hrs 08/25/22 08/25/22 08/25/22 Range/Units 11:28 07:36 05:45 WBC (4.8-10.8) x10^3/uL RBC (4.70-6.10) 10^6/uL Hgb (14.0-18.0) g/dL Hct (42.0-52.0) % MCV (80.0-94.0) fL MCH (27.0-31.0) pg MCHC (32.0-36.0) g/dL RDW (12.0-15.0) % Plt Count (130-450) 10^3/uL MPV (7.4-11.4) fL Neut # (Auto) (1.5-6.6) 10^3/uL Lymph # (Auto) (1.5-3.5) 10^3/uL [place] # (Auto) (0.0-1.0) 10^3/uL Eos # (Auto) (0.0-0.7) 10^3/uL Baso # (Auto) (0.0-0.1) 10^3/uL Absolute Nucleated RBC x10^3/uL Nucleated RBC % /100WBC Sodium 139 (135-145) mmol/L Potassium 4.6 (3.5-5.0) mmol/L Chloride 101 (101-111) mmol/L Carbon Dioxide 28 (21-32) mmol/L Anion Gap 10.0 (6-13) BUN 30 H (6-20) mg/dL Creatinine 0.9 (0.6-1.2) mg/dL Estimated GFR (MDRD) 93 (>89) Glucose 171 H (70-100) mg/dL POC Whole Bld Glucose 226 H 218 H (70 - 100) mg/dL Calcium 9.8 (8.5-10.3) mg/dL C-Reactive Protein 3.0 H (0-1.0) mg/dL 08/25/22 08/24/22 08/24/22 Range/Units 05:45 20:15 16:34 WBC 7.6 (4.8-10.8) x10^3/uL RBC 4.16 L (4.70-6.10) 10^6/uL Hgb 10.9 L (14.0-18.0) g/dL Hct 34.4 L (42.0-52.0) % MCV 82.7 (80.0-94.0) fL MCH 26.2 L (27.0-31.0) pg MCHC 31.7 L (32.0-36.0) g/dL RDW 13.9 (12.0-15.0) % Plt Count 616 H (130-450) 10^3/uL MPV 9.1 (7.4-11.4) fL Neut # (Auto) 4.8 (1.5-6.6) 10^3/uL Lymph # (Auto) 2.1 (1.5-3.5) 10^3/uL [place] # (Auto) 0.4 (0.0-1.0) 10^3/uL Eos # (Auto) 0.2 (0.0-0.7) 10^3/uL Baso # (Auto) 0.0 (0.0-0.1) 10^3/uL Absolute Nucleated RBC 0.00 x10^3/uL Nucleated RBC % 0.0 /100WBC Sodium (135-145) mmol/L Potassium (3.5-5.0) mmol/L Chloride (101-111) mmol/L Carbon Dioxide (21-32) mmol/L Anion Gap (6-13) BUN (6-20) mg/dL Creatinine (0.6-1.2) mg/dL Estimated GFR (MDRD) (>89) Glucose (70-100) mg/dL POC Whole Bld Glucose 122 H 188 H (70 - 100) mg/dL Calcium (8.5-10.3) mg/dL C-Reactive Protein (0-1.0) mg/dL - Current Medications Current Medications: Current Medications Generic Name Dose Route Start Last Admin Trade Name Freq PRN Reason Stop Dose Admin Acetaminophen 650 mg 08/09/22 21:56 08/23/22 05:15 Acetaminophen 325 Mg Tablet PO 650 mg Q4HR PRN Administration Pain 1 to 4, or Fever Hydrocodone Bitart/Acetaminophen 1 tab 08/09/22 21:56 08/19/22 11:45 Hydrocod/Acetam 10 Mg/325 Mg Tablet PO 1 tab Q4HR PRN Administration Pain 8 to 10 Hydrocodone Bitart/Acetaminophen 1 tab 08/09/22 21:56 08/25/22 03:41 Hydrocod/Acetam 5/325 Mg Tablet PO 1 tab Q4HR PRN Administration Pain 5 to 7 Ascorbic Acid 500 mg 08/24/22 08:00 08/25/22 08:37 Ascorbic Acid 500 Mg Tablet PO 500 mg DAILYWM ADRI Administration Carboxymethylcellulose 1 drops 08/10/22 01:01 08/22/22 17:05 Carboxymethylcellulose Ophth Drops EACHEYE 1 drops PRN PRN Administration Dry Eye Enoxaparin Sodium 40 mg 08/22/22 09:00 08/25/22 08:39 Enoxaparin 40 Mg/0.4 Ml Syringe SUBQ 40 mg BID ADRI Administration Ferrous Gluconate 324 mg 08/24/22 08:00 08/25/22 08:37 Ferrous Gluconate 324 Mg Tablet PO 324 mg DAILYWM ADRI Administration Hydrochlorothiazide 25 mg 08/17/22 09:00 08/25/22 08:37 Hydrochlorothiazide 25 Mg Tablet PO 25 mg DAILY ADRI Administration Ertapenem 1 gm/ Sodium 100 mls @ 200 mls/hr 08/20/22 12:00 08/25/22 09:10 Chloride IV Infused DAILY ADRI Infusion Ibuprofen 400 mg 08/23/22 14:27 08/25/22 13:32 Ibuprofen 400 Mg Tablet PO 400 mg Q6HR PRN Administration PAIN Insulin Glargine-yfgn 40 unit 08/23/22 09:00 08/25/22 08:48 Insulin Glargine-Yfgn 300 Unit/3 Ml Pen SUBQ 40 unit DAILY ADRI Administration Insulin Human Lispro 1 - 9 unit 08/22/22 17:00 08/25/22 11:43 Insulin Lispro 300 Unit/3 Ml Pen SUBQ 5 unit 0800,1200,1700,2100 ADRI Administration Protocol Insulin Human Lispro 8 unit 08/24/22 12:00 08/25/22 11:44 Insulin Lispro 300 Unit/3 Ml Pen SUBQ 8 unit TIDWM ADRI Administration Losartan Potassium 50 mg 08/10/22 09:00 08/25/22 08:37 Losartan 50 Mg Tablet PO 50 mg BID ADRI Administration Metformin HCl 1,000 mg 08/18/22 17:00 08/25/22 08:38 Metformin 500 Mg Tablet PO 1,000 mg BIDWM ADRI Administration Metoclopramide HCl 5 mg 08/11/22 22:37 08/11/22 23:00 Metoclopramide 10 Mg/2 Ml Vial IVP 5 mg Q6HR PRN Administration NEEDED PER PROVIDER ORDERS Metoprolol Tartrate 25 mg 08/10/22 09:00 08/25/22 08:38 Metoprolol Tartrate 25 Mg Tablet PO 25 mg BID ADRI Administration Multi-Ingred Cream/Lotion/Oil/Oint 1 applic 08/22/22 15:55 08/23/22 20:49 Mineral Oil/Petrolat Ophth Oint EACHEYE 1 applic QPM PRN Administration Dry Eye Multi-Ingredient Ointment 1 applic 08/13/22 18:12 08/13/22 18:46 Zinc Oxide 20% Oint 30 Gm Tube TOP 1 applic PRN PRN Administration Skin Care Multivitamins/Minerals 1 tab 08/15/22 09:00 08/25/22 08:38 Multivitamin W/Minerals Tablet PO 1 tab DAILYWM ADRI Administration Ondansetron HCl 4 mg 08/09/22 21:56 08/16/22 08:38 Ondansetron 4 Mg/2 Ml Vial IVP 4 mg Q6HR PRN Administration Nausea / Vomiting Pantoprazole Sodium 40 mg 08/10/22 07:00 08/25/22 05:49 Pantoprazole 40 Mg Tablet PO 40 mg QDAC ADRI Administration Systane Eye Drops 1 each 08/24/22 16:00 08/25/22 13:33 EACHEYE 1 each PRN PRN Administration DRY EYE Saccharomyces Boulardii 250 mg 08/17/22 17:00 08/25/22 08:38 Saccharomyces Boulardii 250 Mg Capsule PO 250 mg BIDWM ADRI Administration Sodium Chloride 10 ml 08/09/22 21:56 08/24/22 16:15 Sodium Chloride Flush 0.9% 10 Ml Syringe IVP 10 ml PRN PRN Administration NEEDED PER PROVIDER ORDERS Sodium Chloride 10 ml 08/10/22 01:00 08/25/22 08:38 Sodium Chloride Flush 0.9% 10 Ml Syringe IVP 10 ml 0100,0900,1700 ADRI Administration Sodium Chloride 20 ml 08/25/22 03:57 08/25/22 05:50 Sodium Chloride Flush 0.9% 10 Ml Syringe IVP 20 ml PRN PRN Administration After Blood Draw Throat Lozenges 1 lozenge 08/10/22 01:01 08/17/22 16:28 Benzocaine/Menthol Lozenge MM 1 lozenge Q2HR PRN Administration Throat pain - Physical Exam Comments/Other: Examination of the left foot was again performed, dressings were all removed including the pack to the full-thickness ulcer. The patient has 3 ulcers, 2 of the ulcers are full-thickness and superficial. The main ulcer is about 2-1/2 cm and is over the dorsal lateral aspect of the foot, overlying the fifth metatarsal. This ulcer communicates with the lateral border of the foot and the dorsum of the foot. There is some superficial necrosis to the wound base but this is decreasing. Using a curette, bleeding is easily stimulated and there is signs of granulation tissue. There is still swelling to the foot and lower leg but this is decreasing. There is no pockets of pus. The small amount of fluid when the pack was removed was a serous fluid. There is no acute ischemia. There is mild maceration of skin adjacent to the ulcer. Impression/Plan - Problem List Problem List: Diabetic foot infection with ulceration left foot He is on broad-spectrum antibiotic that should cover staph. He had a positive culture for staph sensitive. His C-reactive protein was 3. He seems to be making definite improvement with local wound care and intravenous antibiotics. This is in conjunction with management of his diabetes. I would continue present treatment with local wound care and antibiotics. A wound VAC could be considered for short period of time, especially if he is going to be in the hospital for intravenous antibiotics. He is best keeping weight off the left foot for ambulation, a scooter would be acceptable or walker with nonweightbearing. He could do left heel weightbearing for standing for brief periods.
[2022-08-26] MEDS: PANTOPRAZOLE 40 MG TABLET PO SCH (06:00)
[2022-08-26 06:42] LABS: CALCIUM 8.9 mg/dL (8.5-10.3); CREATININE 0.9 mg/dL (0.6-1.2); CRP - C-REACTIVE PROTEIN 2.2 mg/dL (0-1.0); POTASSIUM 4.3 mmol/L (3.5-5.0)
[2022-08-26] MEDS: MULTIVITAMIN W/MINERALS TABLET PO SCH (07:58)
[2022-08-26] MEDS: SACCHAROMYCES BOULARDII 250 MG CAPSULE PO SCH ×2 (07:58→16:56)
[2022-08-26] MEDS: FERROUS GLUCONATE 324 MG TABLET PO SCH (07:58)
[2022-08-26] MEDS: INSULIN LISPRO 300 UNIT/3 ML PEN SUBQ SCH ×7 (07:59→20:47)
[2022-08-26] MEDS: SODIUM CHLORIDE FLUSH 0.9% 10 ML SYRINGE IVP SCH ×3 (08:00→23:57)
[2022-08-26] MEDS: ASCORBIC ACID 500 MG TABLET PO SCH (08:01)
[2022-08-26] MEDS: metFORMIN 500 MG TABLET PO SCH ×2 (08:08→16:56)
[2022-08-26] MEDS: INSULIN GLARGINE-YFGN 300 UNIT/3 ML PEN SUBQ SCH (08:09)
[2022-08-26] MEDS: ENOXAPARIN 40 MG/0.4 ML SYRINGE SUBQ SCH ×2 (08:09→20:48)
[2022-08-26] MEDS: hydroCHLOROthiazide 25 MG TABLET PO SCH (08:09)
[2022-08-26] MEDS: LOSARTAN 50 MG TABLET PO SCH ×2 (08:10→20:46)
[2022-08-26] MEDS: METOPROLOL TARTRATE 25 MG TABLET PO SCH ×2 (08:10→20:46)
[2022-08-26] MEDS: ERTAPENEM 1 GM in SODIUM CHLORIDE 0.9% MINIBAG 100 ML IV SCH (08:30)
[2022-08-26] MEDS: HYDROcod/ACETAM 5/325 MG TABLET PO PRN (12:32)
--- NOTE | 2022-08-26 13:12 | WOUND CARE PROGRESS NOTE ---
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 Seems to be under adequate control in-house which will optimize healing. (2) Non-pressure chronic ulcer of other part of left foot with other specified severity Assessment/Plan: 42-year-old male hospitalized for diabetic foot ulcerations complicated by osteomyelitis, abscess/phlegmon, cellulitis, and possible septic joint. Current treatment includes culture targeted Zosyn. No detectable signs of infection on exam today. Despite normalization of WBC count, he remains with rather stable reactive thrombocytopenia. However, I am somewhat reassured that his elevated CRP is improving. I recommend continued IV antibiotic therapy to total 6 weeks, with likely switch to oral antibiotics at that time until wounds are closed. Decisions regarding antibiotic therapy and duration are best made in consultation with an Infectious Disease specialist. He remains at high risk for amputation. He has extensive and complex wounds and protracted course of wound healing in front of him. I would estimate perhaps 9 months of weekly wound care clinic visits in a best case scenario. In addition to conventional wound healing, his best chance at leg salvage would likely include advanced modalities such as negative pressure wound therapy and cellular and/or tissue products, if possible. Status: Improved, as evidenced by decreasing nonviable tissues and nondetectable signs of infection. Wounds cleansed with normal saline and Anasept. Left distal lateral foot wound filled with AMD gauze. Left proximal lateral foot wound dressed with collagen and hydrofera blue. Left plantar 5th MTH wound dressed with collagen and hyrofera blue. All wounds then covered with ABD gauze and secured with rolled gauze and tape. Offloading: Total NWB L foot using crutches. Goals: Resolve infection Remove necrotic/devitalized tissue Redistribute pressure Manage co-morbidities Limb salvage Appropriate follow up instructions were given. He was given a follow-up appointment in the outpatient [facility] in 7 days, sooner PRN. (3) Non-pressure chronic ulcer of other part of left foot with fat layer exposed Assessment/Plan: See above. - Results Lab Results: Laboratory Results Sodium 137 mmol/L (135-145) 08/26/22 06:01 Potassium 4.3 mmol/L (3.5-5.0) 08/26/22 06:01 Chloride 100 mmol/L (101-111) L 08/26/22 06:01 Carbon Dioxide 28 mmol/L (21-32) 08/26/22 06:01 Anion Gap 9.0 (6-13) 08/26/22 06:01 BUN 28 mg/dL (6-20) H 08/26/22 06:01 Creatinine 0.9 mg/dL (0.6-1.2) 08/26/22 06:01 Glucose 140 mg/dL (70-100) H 08/26/22 06:01 Hemoglobin A1c % 12.0 % (4.27-6.07) H 08/10/22 06:26 Calcium 8.9 mg/dL (8.5-10.3) 08/26/22 06:01 Total Bilirubin 1.4 mg/dL (0.2-1.0) H 08/10/22 06:26 AST 22 IU/L (10-42) 08/10/22 06:26 ALT 21 IU/L (10-60) 08/10/22 06:26 Alkaline Phosphatase 113 IU/L (42-121) 08/10/22 06:26 Total Protein 6.6 g/dL (6.7-8.2) L 08/10/22 06:26 Albumin 2.7 g/dL (3.2-5.5) L 08/10/22 06:26 Globulin 3.9 g/dL (2.1-4.2) 08/10/22 06:26 Albumin/Globulin Ratio 0.7 (1.0-2.2) L 08/10/22 06:26 08/13/22 15:15 Foot - Left Anaerobic Culture - Final 08/13/22 15:15 Foot - Left Anaerobic Culture Result 1 - Final 08/13/22 15:15 Foot - Left Gram Stain - Final 08/13/22 15:15 Foot - Left Gram Stain Result 1 - Final 08/13/22 15:15 Foot - Left Gram Stain Result 2 - Final 08/13/22 15:15 Foot - Left Gram Stain Result 3 - Final 08/13/22 15:15 Left Lower Extremity - Left Foot Wound Culture - Final Beta Hemolytic Strep Group B Klebsiella Oxytoca Enterococcus Faecalis. 08/09/22 19:59 Blood Blood Culture - Final NO GROWTH AFTER 5 DAYS 08/09/22 19:59 Blood Blood Culture - Final NO GROWTH AFTER 5 DAYS - Home Meds/Allergies Allergies No Known Drug Allergies Allergy (Verified 08/12/22 08:50) Home Medications Losartan [Cozaar] 50 mg PO BID 08/09/22 [History Confirmed 08/09/22] Omeprazole 40 mg PO DAILY 08/09/22 [History Confirmed 08/09/22] hydroCHLOROthiazide [Hydrodiuril] 25 mg PO DAILY 08/10/22 [History Confirmed 08/10/22] metFORMIN [Glucophage] 850 mg PO TIDWM 08/10/22 [History Confirmed 08/10/22] - Additional Planning Condition/Complexity: Improved Plan Discussed with:: Patient Objective Comments/Notes: Vitals (Done on floor at 0800): T 36.8 C, HR 67, RR 16, BP 122/61. O2 Sat 98% (room air). Constitutional: NAD. Alert and conversant. Respiratory: Normal respiratory effort. Cardiovascular: Regular rate. The left foot and calf are showing only mild edema now. Redness and increased warmth have resolved. Musculoskeletal: No prior amputations. No foot/toe deformities. Neurological: L foot drop. Loss of protective sensation noted bilateral feet to Kopperl Bradley monofilament testing. Labs: WBC has normalized. H&H are improving and now consistent with mild anemia. Platelet count has in the low-to-mid 600's. GFR normal. CRP decreasing and is 2.2 (up to 1). Micro: 08/12/22: Wound culture grew klebsiella oxytoca, GBS, and E. faecalis. Anaerobic cultures NG. Anaerobic gram stain did show some GPC and WBCs. 08/09/22: Blood culture no growth x 2. Imagin08/20/22: L foot MRI WO/W contrast demonstrated increased nonenhancement of the intrinsic foot musculature surrounding the fifth metatarsal suspicious for worsening infectious involvement with possible evolving necrosis vs ischemia. Otherwise, there were no significant changes compared to 08/13/22. 08/13/22: L foot MRI WO/W contrast demonstrated findings compatible with osteomyelitis of the 5th metatarsal head and shaft and 5th proximal phalanx, possible septic arthritis in the 5th MTPJ, findings compatible with a 7.8 x 2.1 x 6.2 cm abscess/phlegmon in the dorsal aspect of the forefoot tracking lateral and plantar to the 5th metatarsal, and findings consistent with cellulitis. - Wound Assessment Wound #1 is a full-thickness diabetic foot ulcer of the left lateral foot at the level of the fifth metatarsal head. It measures 2.4 x 2.2 x 1.0 cm (L x W x D). There is extensive undermining from 8:00 to 12:00 with maximum distance of 5.2 cm at 11:00. There is moderate yellow serous drainage noted which has no odor. The patient reports a wound pain level 0/10. The wound margin is unattached. The wound bed has no epithelialization, no eschar, yes slough, minimal granulation. The periwound skin texture, moisture, temperature, and color are normal. Exposed structures: Fascia. Wound #2 is a full-thickness diabetic foot ulcer of the left plantar foot at the level of the fifth metatarsal head. It measures 2.5 x 1.8 x 0.2 cm (L x W x D). There is no undermining, tunneling, or sinus tracking. There is small amount of serous drainage noted which has no odor. The patient reports a wound pain level 0/10. The wound margin is callused and unattached. The wound bed has no epithelialization, no eschar, yes slough, and minimal granulation. The periwound skin texture, moisture, temperature, and color are normal. Exposed structures: Adipose. Wound #3 is a full-thickness diabetic foot ulcer of the left lateral foot, proximal. It measures 1.0 x 1.5 x 0.5 cm (L x W x D). There is no undermining, tunneling, or sinus tracking. There is small amount of serous drainage noted which has no odor. The patient reports a wound pain level 0/10. The wound margin is unattached. The wound bed has no epithelialization, no eschar, yes slough, and minimal granulation. The periwound skin texture, moisture, temperature, and color are normal. Exposed structures: Adipose. I am unable to demonstrate a communication between the wounds. Subjective - Subjective Patient Reports: Other (He says he is feeling better. No c/o FCS. Denies ulcer pain. Offloading with crutches as recommended.) Procedure - Procedure Note Wound #1: After informed consent was obtained, a skin/subcutaneous tissue level surgical debridement with a total area of 6.00 square centimeters was performed by Juan Wren MD. Using a curette, dermis, epidermis, and subcutaneous tissues were removed along with devitalized tissue: Exudate and slough. Pain control was achieved using 2% topical lidocaine. A timeout was conducted prior to the start of the procedure. A moderate amount of bleeding was controlled with pressure. The procedure was tolerated well. Postdebridement measurements: 2.5 x 2.4 x 1.1 cm (L x W x D). Wound #2: After informed consent was obtained, a skin/subcutaneous tissue level surgical debridement with a total area of 5.88 square centimeters was performed by Juan Wren MD. Using a curette, dermis, epidermis, and subcutaneous tissues were removed along with devitalized tissue: Callus, exudate and slough. Pain control was achieved using 2% topical lidocaine. A timeout was conducted prior to the start of the procedure. A moderate amount of bleeding was controlled with QuikClot and pressure. The procedure was tolerated well. Postdebridement measurements: 2.8 x 2.1 x 0.3 cm (L x W x D). Wound #3: After informed consent was obtained, a skin/subcutaneous tissue level surgical debridement with a total area of 2.55 square centimeters was performed by Juan Wren MD. Using a curette, dermis, epidermis, and subcutaneous tissues were removed along with devitalized tissue: Exudate and slough. Pain control was achieved using 2% topical lidocaine. A timeout was conducted prior to the start of the procedure. A moderate amount of bleeding was controlled with pressure. The procedure was tolerated well. Postdebridement measurements: 1.5 x 1.7 x 0.6 cm (L x W x D).
--- NOTE | 2022-08-26 18:24 | PROVIDER PROGRESS NOTE ---
Assessment/Plan - Problem List (1) Diabetic foot infection Assessment/Plan: Patient has improved swelling and redness since starting ertapenem on August 20. Patient reports tolerating medication well and reports decreased tenderness to left calf and denies fever and rashes. Patient receives daily wound dressing changes and wound appears to be improving with no new signs of infection. Plan: Complete ertapenem antibiotic therapy for a total of 6 weeks and continue on probiotics. Thois is a daily dose and we are looking into where this could be administered. Continue with daily wound dressing changes and monitor patients ulcer. Wrap wound with Kerlix Patient to remain non-weightbearing, except poss L heel, scooter would be optimum Labs to be drawn every other day Continue with DM diet and insulin therapy (2) Poorly controlled diabetes mellitus Impression: Patient glucose levels have improved since admission. Patient reports feeling well rested and satisfied with treatment and food from hospital. Patient reports a willingness to commit to lifestyle changes upon discharge from hospital. Plan Continue current insulin therapy Continue on sliding scale before meals Continue on carb-controlled diet Continue to draw CMP and CBC every other day. (3) Morbid obesity, BMI 50-54.9 This makes care more difficult (2) Immigrant with language difficulty Assessment/Plan: He is not a [place] citizen, I recently learned. He does understand some Iranian, but his [place] language is Slovak. - Current Meds Current Meds: Current Medications Generic Name Dose Route Start Last Admin Trade Name Freq PRN Reason Stop Dose Admin Acetaminophen 650 mg 08/09/22 21:56 08/23/22 05:15 Acetaminophen 325 Mg Tablet PO 650 mg Q4HR PRN Administration Pain 1 to 4, or Fever Hydrocodone Bitart/Acetaminophen 1 tab 08/09/22 21:56 08/19/22 11:45 Hydrocod/Acetam 10 Mg/325 Mg Tablet PO 1 tab Q4HR PRN Administration Pain 8 to 10 Hydrocodone Bitart/Acetaminophen 1 tab 08/09/22 21:56 08/26/22 12:32 Hydrocod/Acetam 5/325 Mg Tablet PO 1 tab Q4HR PRN Administration Pain 5 to 7 Ascorbic Acid 500 mg 08/24/22 08:00 08/26/22 08:01 Ascorbic Acid 500 Mg Tablet PO 500 mg DAILYWM ADRI Administration Carboxymethylcellulose 1 drops 08/10/22 01:01 08/22/22 17:05 Carboxymethylcellulose Ophth Drops EACHEYE 1 drops PRN PRN Administration Dry Eye Enoxaparin Sodium 40 mg 08/22/22 09:00 08/26/22 08:09 Enoxaparin 40 Mg/0.4 Ml Syringe SUBQ 40 mg BID ADRI Administration Ferrous Gluconate 324 mg 08/24/22 08:00 08/26/22 07:58 Ferrous Gluconate 324 Mg Tablet PO 324 mg DAILYWM ADRI Administration Hydrochlorothiazide 25 mg 08/17/22 09:00 08/26/22 08:09 Hydrochlorothiazide 25 Mg Tablet PO 25 mg DAILY ADRI Administration Ertapenem 1 gm/ Sodium 100 mls @ 200 mls/hr 08/20/22 12:00 08/26/22 09:05 Chloride IV Infused DAILY ADRI Infusion Ibuprofen 400 mg 08/23/22 14:27 08/25/22 21:30 Ibuprofen 400 Mg Tablet PO 400 mg Q6HR PRN Administration PAIN Insulin Glargine-yfgn 40 unit 08/23/22 09:00 08/26/22 08:09 Insulin Glargine-Yfgn 300 Unit/3 Ml Pen SUBQ 40 unit DAILY ADRI Administration Insulin Human Lispro 1 - 9 unit 08/22/22 17:00 08/26/22 16:56 Insulin Lispro 300 Unit/3 Ml Pen SUBQ 1 unit 0800,1200,1700,2100 ADRI Administration Protocol Insulin Human Lispro 8 unit 08/24/22 12:00 08/26/22 16:56 Insulin Lispro 300 Unit/3 Ml Pen SUBQ 8 unit TIDWM ADRI Administration Losartan Potassium 50 mg 08/10/22 09:00 08/26/22 08:10 Losartan 50 Mg Tablet PO 50 mg BID ADRI Administration Metformin HCl 1,000 mg 08/18/22 17:00 08/26/22 16:56 Metformin 500 Mg Tablet PO 1,000 mg BIDWM ADRI Administration Metoclopramide HCl 5 mg 08/11/22 22:37 08/11/22 23:00 Metoclopramide 10 Mg/2 Ml Vial IVP 5 mg Q6HR PRN Administration NEEDED PER PROVIDER ORDERS Metoprolol Tartrate 25 mg 08/10/22 09:00 08/26/22 08:10 Metoprolol Tartrate 25 Mg Tablet PO 25 mg BID ADRI Administration Multi-Ingred Cream/Lotion/Oil/Oint 1 applic 08/22/22 15:55 08/23/22 20:49 Mineral Oil/Petrolat Ophth Oint EACHEYE 1 applic QPM PRN Administration Dry Eye Multi-Ingredient Ointment 1 applic 08/13/22 18:12 08/13/22 18:46 Zinc Oxide 20% Oint 30 Gm Tube TOP 1 applic PRN PRN Administration Skin Care Multivitamins/Minerals 1 tab 08/15/22 09:00 08/26/22 07:58 Multivitamin W/Minerals Tablet PO 1 tab DAILYWM ADRI Administration Ondansetron HCl 4 mg 08/09/22 21:56 08/16/22 08:38 Ondansetron 4 Mg/2 Ml Vial IVP 4 mg Q6HR PRN Administration Nausea / Vomiting Pantoprazole Sodium 40 mg 08/10/22 07:00 08/26/22 06:00 Pantoprazole 40 Mg Tablet PO 40 mg QDAC ADRI Administration Systane Eye Drops 1 each 08/24/22 16:00 08/25/22 13:33 EACHEYE 1 each PRN PRN Administration DRY EYE Saccharomyces Boulardii 250 mg 08/17/22 17:00 08/26/22 16:56 Saccharomyces Boulardii 250 Mg Capsule PO 250 mg BIDWM ADRI Administration Sodium Chloride 10 ml 08/09/22 21:56 08/24/22 16:15 Sodium Chloride Flush 0.9% 10 Ml Syringe IVP 10 ml PRN PRN Administration NEEDED PER PROVIDER ORDERS Sodium Chloride 10 ml 08/10/22 01:00 08/26/22 16:57 Sodium Chloride Flush 0.9% 10 Ml Syringe IVP 10 ml 0100,0900,1700 ADRI Administration Sodium Chloride 20 ml 08/25/22 03:57 08/25/22 05:50 Sodium Chloride Flush 0.9% 10 Ml Syringe IVP 20 ml PRN PRN Administration After Blood Draw Throat Lozenges 1 lozenge 08/10/22 01:01 08/17/22 16:28 Benzocaine/Menthol Lozenge MM 1 lozenge Q2HR PRN Administration Throat pain - Lab Result Fish Bone Diagrams: 08/25/22 05:45 08/26/22 06:01 Subjective - Subjective Patient Reports: Resting Comfortably Objective Vital Signs: Vital Signs - 24 hr 08/25/22 08/26/22 08/26/22 21:22 00:00 07:58 Temperature 36.5 C 36.8 C Heart Rate [ 71 67 Brachial] Respiratory 18 16 Rate Blood Pressure 120/60 Blood Pressure 101/48 L 122/61 [Left Brachial artery] O2 Saturation 100 98 08/26/22 08/26/22 08:10 16:00 Temperature 36.9 C Heart Rate [ 79 Brachial] Respiratory 16 Rate Blood Pressure 120/60 Blood Pressure 125/70 [Left Brachial artery] O2 Saturation 98 Oxygen O2 Source Room air I&O (Last 24 Hrs): Intake and Output Totals x24h 08/24/22 08/25/22 08/26/22 23:59 23:59 23:59 Intake Total 1320 1740 940 Balance 1320 1740 940 General: Alert, Oriented x3 HEENT: Mucous membr. moist/pink Neck: Supple Neuro: Alert, Other (sensation of feet abn) Cardiovascular: Regular rate Respiratory: No respiratory distress Abdomen: Soft, Other (Obese) Extremities: Other (L foot and toes wrapped.) - Results Results: Laboratory Results WBC 7.6 x10^3/uL (4.8-10.8) 08/25/22 05:45 RBC 4.16 10^6/uL (4.70-6.10) L 08/25/22 05:45 Hgb 10.9 g/dL (14.0-18.0) L 08/25/22 05:45 Hct 34.4 % (42.0-52.0) L 08/25/22 05:45 MCV 82.7 fL (80.0-94.0) 08/25/22 05:45 MCH 26.2 pg (27.0-31.0) L 08/25/22 05:45 MCHC 31.7 g/dL (32.0-36.0) L 08/25/22 05:45 RDW 13.9 % (12.0-15.0) 08/25/22 05:45 Plt Count 616 10^3/uL (130-450) H 08/25/22 05:45 MPV 9.1 fL (7.4-11.4) 08/25/22 05:45 Reticulocyte % (Auto) 1.17 % (0.5-2.3) 08/24/22 04:19 Neut # (Auto) 4.8 10^3/uL (1.5-6.6) 08/25/22 05:45 Lymph # (Auto) 2.1 10^3/uL (1.5-3.5) 08/25/22 05:45 Carter # (Auto) 0.4 10^3/uL (0.0-1.0) 08/25/22 05:45 Eos # (Auto) 0.2 10^3/uL (0.0-0.7) 08/25/22 05:45 Baso # (Auto) 0.0 10^3/uL (0.0-0.1) 08/25/22 05:45 Absolute Nucleated RBC 0.00 x10^3/uL 08/25/22 05:45 Total Counted 100 08/09/22 19:59 Band Neuts % (Manual) 2 % (0-10) 08/09/22 19:59 Abnorm Lymph % (Manual) 0 % 08/09/22 19:59 Nucleated RBC % 0.0 /100WBC 08/25/22 05:45 Neutrophils # (Manual) 18.7 10^3/uL (1.5-6.6) H 08/09/22 19:59 Lymphocytes # (Manual) 1.3 10^3/uL (1.5-3.5) L 08/09/22 19:59 Monocytes # (Manual) 1.3 10^3/uL (0.0-1.0) H 08/09/22 19:59 Eosinophils # (Manual) 0.0 10^3/uL (0-0.7) 08/09/22 19:59 Basophils # (Manual) 0.0 10^3/uL (0-0.1) 08/09/22 19:59 Differential Comment MANUAL DIFFERENTIAL 08/09/22 19:59 WBC Morphology 2+ TOXIC GRANULATION (NORMAL) 08/09/22 19:59 Platelet Estimate NORMAL (130-450,000) (NORMAL) 08/09/22 19:59 Platelet Morphology NORMAL APPEARANCE (NORMAL) 08/09/22 19:59 RBC Morph Micro Appear NORMAL APPEARANCE (NORMAL) 08/09/22 19:59 ESR 64 mm/Hr (0-15) H 08/09/22 19:59 Absolute Retic 0.046 10^6/uL (0.020-0.110) 08/24/22 04:19 Sodium 137 mmol/L (135-145) 08/26/22 06:01 Potassium 4.3 mmol/L (3.5-5.0) 08/26/22 06:01 Chloride 100 mmol/L (101-111) L 08/26/22 06:01 Carbon Dioxide 28 mmol/L (21-32) 08/26/22 06:01 Anion Gap 9.0 (6-13) 08/26/22 06:01 BUN 28 mg/dL (6-20) H 08/26/22 06:01 Creatinine 0.9 mg/dL (0.6-1.2) 08/26/22 06:01 Estimated GFR (MDRD) 93 (>89) 08/26/22 06:01 Glucose 140 mg/dL (70-100) H 08/26/22 06:01 POC Whole Bld Glucose 165 mg/dL (70 - 100) H 08/26/22 16:35 Estimat Average Glucose 298 mg/dL (70-100) H 08/10/22 06:26 Hemoglobin A1c % 12.0 % (4.27-6.07) H 08/10/22 06:26 Lactic Acid 1.4 mmol/L (0.5-2.2) 08/09/22 21:46 Calcium 8.9 mg/dL (8.5-10.3) 08/26/22 06:01 Magnesium 2.3 mg/dL (1.7-2.8) 08/18/22 04:43 Iron 24 ug/dL (45-182) L 08/24/22 04:19 Iron 27 ug/dL (45-182) L 08/24/22 04:19 TIBC 273 ug/dL (250-450) 08/24/22 04:19 % Saturation 9 % (20-50) L 08/24/22 04:19 Transferrin 195 mg/dL (180-329) 08/24/22 04:19 Ferritin 95.4 ng/mL (23.9-336.2) 08/24/22 04:19 Total Bilirubin 1.4 mg/dL (0.2-1.0) H 08/10/22 06:26 AST 22 IU/L (10-42) 08/10/22 06:26 ALT 21 IU/L (10-60) 08/10/22 06:26 Alkaline Phosphatase 113 IU/L (42-121) 08/10/22 06:26 Lactate Dehydrogenase 100 IU/L (91-225) 08/24/22 04:19 C-Reactive Protein 2.2 mg/dL (0-1.0) H 08/26/22 06:01 Total Protein 6.6 g/dL (6.7-8.2) L 08/10/22 06:26 Albumin 2.7 g/dL (3.2-5.5) L 08/10/22 06:26 Globulin 3.9 g/dL (2.1-4.2) 08/10/22 06:26 Albumin/Globulin Ratio 0.7 (1.0-2.2) L 08/10/22 06:26 Triglycerides 136 mg/dL (-149) 08/10/22 06:26 Cholesterol 153 mg/dL (-199) 08/10/22 06:26 LDL Cholesterol, Calc 97 mg/dL (-129) 08/10/22 06:26 VLDL Cholesterol 27 mg/dL 08/10/22 06:26 HDL Cholesterol 29 mg/dL (60-) L 08/10/22 06:26 LDL/HDL Ratio 3.3 (<3.6) 08/10/22 06:26 Cholesterol/HDL Ratio 5.3 (<5.0) 08/10/22 06:26 Lipase 23 U/L (22-51) 08/09/22 19:59 Vitamin B12 201 pg/mL (180-914) 08/24/22 04:19 Procalcitonin 0.84 ng/mL (<0.5) H 08/09/22 21:46 TSH 0.84 uIU/mL (0.34-5.60) 08/10/22 06:26 Urine Color DARK YELLOW 08/09/22 20:27 Urine Clarity CLEAR (CLEAR) 08/09/22 20: Urine pH 5.5 PH (5.0-7.5) 08/09/22 20:27 Ur Specific [place] 1.015 (1.002-1.030) 08/09/22 20:27 Urine Protein NEGATIVE mg/dL (NEGATIVE) 08/09/22 20: Urine Glucose (UA) >=1000 mg/dL (NEGATIVE) H 08/09/22 20:27 Urine Ketones TRACE mg/dL (NEGATIVE) 08/09/22 20:27 Urine Occult Blood TRACE-INTA (NEGATIVE) 08/09/22 20:27 Urine Nitrite NEGATIVE (NEGATIVE) 08/09/22 20:27 Urine Bilirubin SMALL (NEGATIVE) H 08/09/22 20:27 Urine Urobilinogen 2 E.U./dL (NORMAL) H 08/09/22 20:27 Ur Leukocyte Esterase NEGATIVE (NEGATIVE) 08/09/22 20:27 Ur Microscopic Review NOT INDICATED 08/09/22 20:27 Urine Culture Comments NOT INDICATED 08/09/22 20:27 Nasal Adenovirus (PCR) NOT DETECTED 08/17/22 16:30 Nasal B. parapertussis DNA (PCR) NOT DETECTED 08/17/22 16:30 Nasal Coronavir 229E PCR NOT DETECTED 08/17/22 16:30 Nasal Coronavir HKU1 PCR NOT DETECTED 08/17/22 16:30 Nasal Coronavir NL63 PCR NOT DETECTED 08/17/22 16:30 Nasal Coronavir OC43 PCR NOT DETECTED 08/17/22 16:30 Nasal Enterovir/Rhinovir PCR NOT DETECTED 08/17/22 16:30 Nasal Influenza B PCR NOT DETECTED 08/17/22 16:30 Nasal Influenza A PCR NOT DETECTED 08/17/22 16:30 Nasal Parainfluen 1 PCR NOT DETECTED 08/17/22 16:30 Nasal Parainfluen 2 PCR NOT DETECTED 08/17/22 16:30 Nasal Parainfluen 3 PCR NOT DETECTED 08/17/22 16:30 Nasal Parainfluen 4 PCR NOT DETECTED 08/17/22 16:30 Nasal RSV (PCR) NOT DETECTED 08/17/22 16:30 Nasal B.pertussis DNA PCR NOT DETECTED 08/17/22 16:30 Nasal C.pneumoniae (PCR) NOT DETECTED 08/17/22 16:30 Yannick Human Metapneumo PCR NOT DETECTED 08/17/22 16:30 Nasal M.pneumoniae (PCR) NOT DETECTED 08/17/22 16:30 Nasal SARS-CoV-2 (PCR) NOT DETECTED 08/17/22 16:30 Last Dose Date 08/14/2022 08/14/22 13:55 Last Dose Time 0336 08/14/22 13:55 Vancomycin Trough 16.6 ug/mL (10.0-20.0) 08/14/22 13:55 Sepsis Event Note (H) - Evaluation Current Stage of Sepsis: Ruled out
[2022-08-26] MEDS: SODIUM CHLORIDE FLUSH 0.9% 10 ML SYRINGE IVP PRN (23:57)
[2022-08-27] MEDS: PANTOPRAZOLE 40 MG TABLET PO SCH (06:30)
[2022-08-27] MEDS: IBUPROFEN 400 MG TABLET PO PRN (06:30)
[2022-08-27] MEDS: INSULIN GLARGINE-YFGN 300 UNIT/3 ML PEN SUBQ SCH (08:28)
[2022-08-27] MEDS: INSULIN LISPRO 300 UNIT/3 ML PEN SUBQ SCH ×7 (08:28→21:30)
[2022-08-27] MEDS: metFORMIN 500 MG TABLET PO SCH ×2 (08:29→16:41)
[2022-08-27] MEDS: ENOXAPARIN 40 MG/0.4 ML SYRINGE SUBQ SCH ×2 (08:34→21:29)
[2022-08-27] MEDS: ERTAPENEM 1 GM in SODIUM CHLORIDE 0.9% MINIBAG 100 ML IV SCH (08:34)
[2022-08-27] MEDS: hydroCHLOROthiazide 25 MG TABLET PO SCH (08:39)
[2022-08-27] MEDS: MULTIVITAMIN W/MINERALS TABLET PO SCH (08:40)
[2022-08-27] MEDS: FERROUS GLUCONATE 324 MG TABLET PO SCH (08:40)
[2022-08-27] MEDS: ASCORBIC ACID 500 MG TABLET PO SCH (08:40)
[2022-08-27] MEDS: LOSARTAN 50 MG TABLET PO SCH ×2 (08:40→21:30)
[2022-08-27] MEDS: SACCHAROMYCES BOULARDII 250 MG CAPSULE PO SCH ×2 (08:40→16:41)
[2022-08-27] MEDS: METOPROLOL TARTRATE 25 MG TABLET PO SCH ×2 (08:41→21:30)
[2022-08-27] MEDS: SODIUM CHLORIDE FLUSH 0.9% 10 ML SYRINGE IVP SCH ×3 (15:41→23:45)
--- NOTE | 2022-08-27 15:46 | PROVIDER PROGRESS NOTE ---
Assessment/Plan - Problem List (1) Diabetic foot infection Assessment/Plan: Patient has improved swelling and redness since starting ertapenem on August 20. Patient reports tolerating medication well and reports decreased tenderness to left calf and denies fever and rashes. Patient [facility] and now receives every other daily wound dressing changes. Dr. Peterson saw him today and wound appears to be improving, with no new signs of infection. Plan: Complete ertapenem antibiotic therapy for a total of 6 weeks and continue on probiotics. This is a daily dose and we are looking into where this could be administered. Continue with QOD wound dressing changes now and monitor patients ulcer. Wrap wound with Kerlix Patient to remain non-weightbearing, except poss L heel, or a scooter would be optimum Labs to be drawn every other day Continue with DM diet and insulin therapy (2) Poorly controlled diabetes mellitus Impression: Patient glucose levels have improved since admission. Patient reports feeling well rested and satisfied with treatment and food from hospital. Patient reports a willingness to commit to lifestyle changes upon discharge from hospital. Plan Continue current insulin therapy Continue on sliding scale before meals Continue on carb-controlled diet Continue to draw CMP and CBC every other day. (3) Morbid obesity, BMI 50-54.9 This makes care more difficult (4) Immigrant with language difficulty Assessment/Plan: He is not a [place] citizen, I recently learned. He does understand some Nepalese, but his [place] language is [place]i. - Current Meds Current Meds: Current Medications Generic Name Dose Route Start Last Admin Trade Name Freq PRN Reason Stop Dose Admin Acetaminophen 650 mg 08/09/22 21:56 08/23/22 05:15 Acetaminophen 325 Mg Tablet PO 650 mg Q4HR PRN Administration Pain 1 to 4, or Fever Hydrocodone Bitart/Acetaminophen 1 tab 08/09/22 21:56 08/19/22 11:45 Hydrocod/Acetam 10 Mg/325 Mg Tablet PO 1 tab Q4HR PRN Administration Pain 8 to 10 Hydrocodone Bitart/Acetaminophen 1 tab 08/09/22 21:56 08/26/22 12:32 Hydrocod/Acetam 5/325 Mg Tablet PO 1 tab Q4HR PRN Administration Pain 5 to 7 Ascorbic Acid 500 mg 08/24/22 08:00 08/27/22 08:40 Ascorbic Acid 500 Mg Tablet PO 500 mg DAILYWM ADRI Administration Carboxymethylcellulose 1 drops 08/10/22 01:01 08/22/22 17:05 Carboxymethylcellulose Ophth Drops EACHEYE 1 drops PRN PRN Administration Dry Eye Enoxaparin Sodium 40 mg 08/22/22 09:00 08/27/22 08:34 Enoxaparin 40 Mg/0.4 Ml Syringe SUBQ 40 mg BID ADRI Administration Ferrous Gluconate 324 mg 08/24/22 08:00 08/27/22 08:40 Ferrous Gluconate 324 Mg Tablet PO 324 mg DAILYWM ADRI Administration Hydrochlorothiazide 25 mg 08/17/22 09:00 08/27/22 08:39 Hydrochlorothiazide 25 Mg Tablet PO 25 mg DAILY ADRI Administration Ertapenem 1 gm/ Sodium 100 mls @ 200 mls/hr 08/20/22 12:00 08/27/22 15:41 Chloride IV Infused DAILY ADRI Infusion Ibuprofen 400 mg 08/23/22 14:27 08/27/22 06:30 Ibuprofen 400 Mg Tablet PO 400 mg Q6HR PRN Administration PAIN Insulin Glargine-yfgn 40 unit 08/23/22 09:00 08/27/22 08:28 Insulin Glargine-Yfgn 300 Unit/3 Ml Pen SUBQ 40 unit DAILY ADRI Administration Insulin Human Lispro 1 - 9 unit 08/22/22 17:00 08/27/22 11:52 Insulin Lispro 300 Unit/3 Ml Pen SUBQ 5 unit 0800,1200,1700,2100 ADRI Administration Protocol Insulin Human Lispro 8 unit 08/24/22 12:00 08/27/22 11:52 Insulin Lispro 300 Unit/3 Ml Pen SUBQ 8 unit TIDWM ADRI Administration Losartan Potassium 50 mg 08/10/22 09:00 08/27/22 08:40 Losartan 50 Mg Tablet PO 50 mg BID ADRI Administration Metformin HCl 1,000 mg 08/18/22 17:00 08/27/22 08:29 Metformin 500 Mg Tablet PO 1,000 mg BIDWM ADRI Administration Metoclopramide HCl 5 mg 08/11/22 22:37 08/11/22 23:00 Metoclopramide 10 Mg/2 Ml Vial IVP 5 mg Q6HR PRN Administration NEEDED PER PROVIDER ORDERS Metoprolol Tartrate 25 mg 08/10/22 09:00 08/27/22 08:41 Metoprolol Tartrate 25 Mg Tablet PO 25 mg BID ADRI Administration Multi-Ingred Cream/Lotion/Oil/Oint 1 applic 08/22/22 15:55 08/23/22 20:49 Mineral Oil/Petrolat Ophth Oint EACHEYE 1 applic QPM PRN Administration Dry Eye Multi-Ingredient Ointment 1 applic 08/13/22 18:12 08/13/22 18:46 Zinc Oxide 20% Oint 30 Gm Tube TOP 1 applic PRN PRN Administration Skin Care Multivitamins/Minerals 1 tab 08/15/22 09:00 08/27/22 08:40 Multivitamin W/Minerals Tablet PO 1 tab DAILYWM ADRI Administration Ondansetron HCl 4 mg 08/09/22 21:56 08/16/22 08:38 Ondansetron 4 Mg/2 Ml Vial IVP 4 mg Q6HR PRN Administration Nausea / Vomiting Pantoprazole Sodium 40 mg 08/10/22 07:00 08/27/22 06:30 Pantoprazole 40 Mg Tablet PO 40 mg QDAC ADRI Administration Systane Eye Drops 1 each 08/24/22 16:00 08/25/22 13:33 EACHEYE 1 each PRN PRN Administration DRY EYE Saccharomyces Boulardii 250 mg 08/17/22 17:00 08/27/22 08:40 Saccharomyces Boulardii 250 Mg Capsule PO 250 mg BIDWM ADRI Administration Sodium Chloride 10 ml 08/09/22 21:56 08/26/22 23:57 Sodium Chloride Flush 0.9% 10 Ml Syringe IVP 10 ml PRN PRN Administration NEEDED PER PROVIDER ORDERS Sodium Chloride 10 ml 08/10/22 01:00 08/27/22 15:41 Sodium Chloride Flush 0.9% 10 Ml Syringe IVP Not Given 0100,0900,1700 [facility] Sodium Chloride 20 ml 08/25/22 03:57 08/25/22 05:50 Sodium Chloride Flush 0.9% 10 Ml Syringe IVP 20 ml PRN PRN Administration After Blood Draw Throat Lozenges 1 lozenge 08/10/22 01:01 08/17/22 16:28 Benzocaine/Menthol Lozenge MM 1 lozenge Q2HR PRN Administration Throat pain - Lab Result Fish Bone Diagrams: 08/25/22 05:45 08/26/22 06:01 Subjective - Subjective Patient Reports: No Complaints Nursing Reports: Other (He no longer likes to keep his legs elevated when he is out of bed in chair) Objective Vital Signs: Vital Signs - 24 hr 08/26/22 08/26/22 08/27/22 16:00 20:46 00:00 Temperature 36.9 C 36.7 C Heart Rate [ 79 89 Brachial] Respiratory 16 18 Rate Blood Pressure 128/72 Blood Pressure 125/70 143/69 H [Left Brachial artery] Blood Pressure [Right Brachial artery] O2 Saturation 98 98 08/27/22 08/27/22 07:20 08:41 Temperature 36.4 C L Heart Rate [ 69 Brachial] Respiratory 18 Rate Blood Pressure 126/69 Blood Pressure [Left Brachial artery] Blood Pressure 126/69 [Right Brachial artery] O2 Saturation 97 Oxygen O2 Source Room air I&O (Last 24 Hrs): Intake and Output Totals x24h 08/25/22 08/26/22 08/27/22 23:59 23:59 23:59 Intake Total 4131 788 7306 Balance 4547 976 1270 General: Alert, Oriented x3 HEENT: Mucous membr. moist/pink Neck: Supple Neuro: Alert Cardiovascular: Regular rate Respiratory: No respiratory distress Abdomen: Soft, Other (Obese) Extremities: Other (Left foot and toes bandaged) - Results Results: Laboratory Results WBC 7.6 x10^3/uL (4.8-10.8) 08/25/22 05:45 RBC 4.16 10^6/uL (4.70-6.10) L 08/25/22 05:45 Hgb 10.9 g/dL (14.0-18.0) L 08/25/22 05:45 Hct 34.4 % (42.0-52.0) L 08/25/22 05:45 MCV 82.7 fL (80.0-94.0) 08/25/22 05:45 MCH 26.2 pg (27.0-31.0) L 08/25/22 05:45 MCHC 31.7 g/dL (32.0-36.0) L 08/25/22 05:45 RDW 13.9 % (12.0-15.0) 08/25/22 05:45 Plt Count 616 10^3/uL (130-450) H 08/25/22 05:45 MPV 9.1 fL (7.4-11.4) 08/25/22 05:45 Reticulocyte % (Auto) 1.17 % (0.5-2.3) 08/24/22 04:19 Neut # (Auto) 4.8 10^3/uL (1.5-6.6) 08/25/22 05:45 Lymph # (Auto) 2.1 10^3/uL (1.5-3.5) 08/25/22 05:45 [place] # (Auto) 0.4 10^3/uL (0.0-1.0) 08/25/22 05:45 Eos # (Auto) 0.2 10^3/uL (0.0-0.7) 08/25/22 05:45 Baso # (Auto) 0.0 10^3/uL (0.0-0.1) 08/25/22 05:45 Absolute Nucleated RBC 0.00 x10^3/uL 08/25/22 05:45 Total Counted 100 08/09/22 19:59 Band Neuts % (Manual) 2 % (0-10) 08/09/22 19:59 Abnorm Lymph % (Manual) 0 % 08/09/22 19:59 Nucleated RBC % 0.0 /100WBC 08/25/22 05:45 Neutrophils # (Manual) 18.7 10^3/uL (1.5-6.6) H 08/09/22 19:59 Lymphocytes # (Manual) 1.3 10^3/uL (1.5-3.5) L 08/09/22 19:59 Monocytes # (Manual) 1.3 10^3/uL (0.0-1.0) H 08/09/22 19:59 Eosinophils # (Manual) 0.0 10^3/uL (0-0.7) 08/09/22 19:59 Basophils # (Manual) 0.0 10^3/uL (0-0.1) 08/09/22 19:59 Differential Comment MANUAL DIFFERENTIAL 08/09/22 19:59 WBC Morphology 2+ TOXIC GRANULATION (NORMAL) 08/09/22 19:59 Platelet Estimate NORMAL (130-450,000) (NORMAL) 08/09/22 19:59 Platelet Morphology NORMAL APPEARANCE (NORMAL) 08/09/22 19:59 RBC Morph Micro Appear NORMAL APPEARANCE (NORMAL) 08/09/22 19:59 ESR 64 mm/Hr (0-15) H 08/09/22 19:59 Absolute Retic 0.046 10^6/uL (0.020-0.110) 08/24/22 04:19 Sodium 137 mmol/L (135-145) 08/26/22 06:01 Potassium 4.3 mmol/L (3.5-5.0) 08/26/22 06:01 Chloride 100 mmol/L (101-111) L 08/26/22 06:01 Carbon Dioxide 28 mmol/L (21-32) 08/26/22 06:01 Anion Gap 9.0 (6-13) 08/26/22 06:01 BUN 28 mg/dL (6-20) H 08/26/22 06:01 Creatinine 0.9 mg/dL (0.6-1.2) 08/26/22 06:01 Estimated GFR (MDRD) 93 (>89) 08/26/22 06:01 Glucose 140 mg/dL (70-100) H 08/26/22 06:01 POC Whole Bld Glucose 240 mg/dL (70 - 100) H 08/27/22 11:19 Estimat Average Glucose 298 mg/dL (70-100) H 08/10/22 06:26 Hemoglobin A1c % 12.0 % (4.27-6.07) H 08/10/22 06:26 Lactic Acid 1.4 mmol/L (0.5-2.2) 08/09/22 21:46 Calcium 8.9 mg/dL (8.5-10.3) 08/26/22 06:01 Magnesium 2.3 mg/dL (1.7-2.8) 08/18/22 04:43 Iron 24 ug/dL (45-182) L 08/24/22 04:19 Iron 27 ug/dL (45-182) L 08/24/22 04:19 TIBC 273 ug/dL (250-450) 08/24/22 04:19 % Saturation 9 % (20-50) L 08/24/22 04:19 Transferrin 195 mg/dL (180-329) 08/24/22 04:19 Ferritin 95.4 ng/mL (23.9-336.2) 08/24/22 04:19 Total Bilirubin 1.4 mg/dL (0.2-1.0) H 08/10/22 06:26 AST 22 IU/L (10-42) 08/10/22 06:26 ALT 21 IU/L (10-60) 08/10/22 06:26 Alkaline Phosphatase 113 IU/L (42-121) 08/10/22 06:26 Lactate Dehydrogenase 100 IU/L (91-225) 08/24/22 04:19 C-Reactive Protein 2.2 mg/dL (0-1.0) H 08/26/22 06:01 Total Protein 6.6 g/dL (6.7-8.2) L 08/10/22 06:26 Albumin 2.7 g/dL (3.2-5.5) L 08/10/22 06:26 Globulin 3.9 g/dL (2.1-4.2) 08/10/22 06:26 Albumin/Globulin Ratio 0.7 (1.0-2.2) L 08/10/22 06:26 Triglycerides 136 mg/dL (-149) 08/10/22 06:26 Cholesterol 153 mg/dL (-199) 08/10/22 06:26 LDL Cholesterol, Calc 97 mg/dL (-129) 08/10/22 06:26 VLDL Cholesterol 27 mg/dL 08/10/22 06:26 HDL Cholesterol 29 mg/dL (60-) L 08/10/22 06:26 LDL/HDL Ratio 3.3 (<3.6) 08/10/22 06:26 Cholesterol/HDL Ratio 5.3 (<5.0) 08/10/22 06:26 Lipase 23 U/L (22-51) 08/09/22 19:59 Vitamin B12 201 pg/mL (180-914) 08/24/22 04:19 Procalcitonin 0.84 ng/mL (<0.5) H 08/09/22 21:46 TSH 0.84 uIU/mL (0.34-5.60) 08/10/22 06:26 Urine Color DARK YELLOW 08/09/22 20:27 Urine Clarity CLEAR (CLEAR) 08/09/22 20:27 Urine pH 5.5 PH (5.0-7.5) 08/09/22 20:27 Ur Specific [place] 1.015 (1.002-1.030) 08/09/22 20:27 Urine Protein NEGATIVE mg/dL (NEGATIVE) 08/09/22 20:27 Urine Glucose (UA) >=1000 mg/dL (NEGATIVE) H 08/09/22 20:27 Urine Ketones TRACE mg/dL (NEGATIVE) 08/09/22 20:27 Urine Occult Blood TRACE-INTA (NEGATIVE) 08/09/22 20: Urine Nitrite NEGATIVE (NEGATIVE) 08/09/22 20: Urine Bilirubin SMALL (NEGATIVE) H 08/09/22 20:27 Urine Urobilinogen 2 E.U./dL (NORMAL) H 08/09/22 20:27 Ur Leukocyte Esterase NEGATIVE (NEGATIVE) 08/09/22 20:27 Ur Microscopic Review NOT INDICATED 08/09/22 20:27 Urine Culture Comments NOT INDICATED 08/09/22 20:27 Nasal Adenovirus (PCR) NOT DETECTED 08/17/22 16:30 Nasal B. parapertussis DNA (PCR) NOT DETECTED 08/17/22 16:30 Nasal Coronavir 229E PCR NOT DETECTED 08/17/22 16:30 Nasal Coronavir HKU1 PCR NOT DETECTED 08/17/22 16:30 Nasal Coronavir NL63 PCR NOT DETECTED 08/17/22 16:30 Nasal Coronavir OC43 PCR NOT DETECTED 08/17/22 16:30 Nasal Enterovir/Rhinovir PCR NOT DETECTED 08/17/22 16:30 Nasal Influenza B PCR NOT DETECTED 08/17/22 16:30 Nasal Influenza A PCR NOT DETECTED 08/17/22 16:30 Nasal Parainfluen 1 PCR NOT DETECTED 08/17/22 16:30 Nasal Parainfluen 2 PCR NOT DETECTED 08/17/22 16:30 Nasal Parainfluen 3 PCR NOT DETECTED 08/17/22 16:30 Nasal Parainfluen 4 PCR NOT DETECTED 08/17/22 16:30 Nasal RSV (PCR) NOT DETECTED 08/17/22 16:30 Nasal B.pertussis DNA PCR NOT DETECTED 08/17/22 16:30 Nasal C.pneumoniae (PCR) NOT DETECTED 08/17/22 16:30 [place] Human Metapneumo PCR NOT DETECTED 08/17/22 16:30 Nasal M.pneumoniae (PCR) NOT DETECTED 08/17/22 16:30 Nasal SARS-CoV-2 (PCR) NOT DETECTED 08/17/22 16:30 Last Dose Date 08/14/2022 08/14/22 13:55 Last Dose Time 03308/14/22 13:55 Vancomycin Trough 16.6 ug/mL (10.0-20.0) 08/14/22 13:55 Sepsis Event Note (H) - Evaluation Current Stage of Sepsis: Ruled out
[2022-08-27] MEDS: SODIUM CHLORIDE FLUSH 0.9% 10 ML SYRINGE IVP PRN (23:49)
[2022-08-28] MEDS: SYSTANE EYE DROPS EACHEYE PRN (03:12)
[2022-08-28] MEDS: PANTOPRAZOLE 40 MG TABLET PO SCH (05:58)
[2022-08-28] MEDS: IBUPROFEN 400 MG TABLET PO PRN ×2 (05:58→13:04)
[2022-08-28] MEDS: ENOXAPARIN 40 MG/0.4 ML SYRINGE SUBQ SCH ×2 (08:57→20:41)
[2022-08-28] MEDS: FERROUS GLUCONATE 324 MG TABLET PO SCH (08:58)
[2022-08-28] MEDS: LOSARTAN 50 MG TABLET PO SCH ×2 (08:58→20:42)
[2022-08-28] MEDS: ASCORBIC ACID 500 MG TABLET PO SCH (08:58)
[2022-08-28] MEDS: SACCHAROMYCES BOULARDII 250 MG CAPSULE PO SCH ×2 (08:58→17:21)
[2022-08-28] MEDS: metFORMIN 500 MG TABLET PO SCH ×2 (08:58→17:21)
[2022-08-28] MEDS: hydroCHLOROthiazide 25 MG TABLET PO SCH (08:58)
[2022-08-28] MEDS: INSULIN LISPRO 300 UNIT/3 ML PEN SUBQ SCH ×7 (08:59→20:33)
[2022-08-28] MEDS: MULTIVITAMIN W/MINERALS TABLET PO SCH (08:59)
[2022-08-28] MEDS: INSULIN GLARGINE-YFGN 300 UNIT/3 ML PEN SUBQ SCH ×2 (09:00→20:43)
[2022-08-28] MEDS: ERTAPENEM 1 GM in SODIUM CHLORIDE 0.9% MINIBAG 100 ML IV SCH (09:01)
[2022-08-28] MEDS: METOPROLOL TARTRATE 25 MG TABLET PO SCH ×2 (09:02→20:42)
[2022-08-28] MEDS: SODIUM CHLORIDE FLUSH 0.9% 10 ML SYRINGE IVP SCH ×3 (09:02→20:48)
[2022-08-28 09:26] LABS: BASOPHILS % (AUTO) 0.5 %; EOSINOPHILS # (AUTO) 0.2 10^3/uL (0.0-0.7); HCT - HEMATOCRIT 34.8 % (42.0-52.0); LYMPHOCYTES # (AUTO) 1.8 10^3/uL (1.5-3.5); LYMPHOCYTES % (AUTO) 22.9 %; MEAN CORPUSCULAR HEMOGLOBIN 25.5 pg (27.0-31.0); MEAN CORPUSCULAR HGB CONC 31.6 g/dL (32.0-36.0); MEAN CORPUSCULAR VOLUME 80.7 fL (80.0-94.0); MONOCYTES # (AUTO) 0.5 10^3/uL (0.0-1.0); MONOCYTES % (AUTO) 6.3 %; NEUTROPHILS # (AUTO) 5.5 10^3/uL (1.5-6.6); NEUTROPHILS % (AUTO) 68.1 %; PLT - PLATELET COUNT 506 10^3/uL (130-450); RED BLOOD COUNT 4.31 10^6/uL (4.70-6.10); RED CELL DISTRIBUTION WIDTH 13.6 % (12.0-15.0)
--- NOTE | 2022-08-28 17:29 | PROVIDER PROGRESS NOTE ---
Assessment/Plan - Problem List (1) Diabetic foot infection Assessment/Plan: Patient has improved with the swelling and redness since starting ertapenem on August 20. Patient reports tolerating medication and reports decreased tenderness to left calf and denies edema of either leg. Patient was seen [facility] and it was recommended that he now receive every other daily wound dressing changes. Dr. Peterson saw him today and wound appears to be improving, with no new signs of infection. Plan: Complete ertapenem antibiotic therapy for a total of 6 weeks and continue on probiotics. This is a daily dose and we are looking into where this could be administered. Continue with QOD wound dressing changes now. The exact types of dressing changes will be put in orders. Patient to remain non-weightbearing, except poss L heel, or a scooter would be optimum Labs to be drawn about every other day Continue with DM diet and insulin therapy (2) Poorly controlled diabetes mellitus Impression: Patient glucose levels have improved since admission. Patient reports feeling well rested and satisfied with treatment and food from hospital. Patient reports a willingness to commit to lifestyle changes upon discharge from hospital. Plan Continue current insulin therapy Continue on sliding scale before meals Continue on carb-controlled diet Continue to draw CMP and CBC every other day. (3) Morbid obesity, BMI 50-54.9 This makes care more difficult (4) Immigrant with language difficulty Assessment/Plan: He does understand some Romansh, but his [place] language is [place]. He is not a [place] citizen - Current Meds Current Meds: Current Medications Generic Name Dose Route Start Last Admin Trade Name Freq PRN Reason Stop Dose Admin Acetaminophen 650 mg 08/09/22 21:56 08/23/22 05:15 Acetaminophen 325 Mg Tablet PO 650 mg Q4HR PRN Administration Pain 1 to 4, or Fever Hydrocodone Bitart/Acetaminophen 1 tab 08/09/22 21:56 08/19/22 11:45 Hydrocod/Acetam 10 Mg/325 Mg Tablet PO 1 tab Q4HR PRN Administration Pain 8 to 10 Hydrocodone Bitart/Acetaminophen 1 tab 08/09/22 21:56 08/26/22 12:32 Hydrocod/Acetam 5/325 Mg Tablet PO 1 tab Q4HR PRN Administration Pain 5 to 7 Ascorbic Acid 500 mg 08/24/22 08:00 08/28/22 08:58 Ascorbic Acid 500 Mg Tablet PO 500 mg DAILYWM ADRI Administration Carboxymethylcellulose 1 drops 08/10/22 01:01 08/22/22 17:05 Carboxymethylcellulose Ophth Drops EACHEYE 1 drops PRN PRN Administration Dry Eye Enoxaparin Sodium 40 mg 08/22/22 09:00 08/28/22 08:57 Enoxaparin 40 Mg/0.4 Ml Syringe SUBQ 40 mg BID ADRI Administration Ferrous Gluconate 324 mg 08/24/22 08:00 08/28/22 08:58 Ferrous Gluconate 324 Mg Tablet PO 324 mg DAILYWM ADRI Administration Hydrochlorothiazide 25 mg 08/17/22 09:00 08/28/22 08:58 Hydrochlorothiazide 25 Mg Tablet PO 25 mg DAILY ADRI Administration Ertapenem 1 gm/ Sodium 100 mls @ 200 mls/hr 08/20/22 12:00 08/28/22 09:31 Chloride IV Infused DAILY [facility] Infusion Ibuprofen 400 mg 08/23/22 14:27 08/28/22 13:04 Ibuprofen 400 Mg Tablet PO 400 mg Q6HR PRN Administration PAIN Insulin Glargine-yfgn 40 unit 08/23/22 09:00 08/28/22 09:00 Insulin Glargine-Yfgn 300 Unit/3 Ml Pen SUBQ 40 unit DAILY ADRI Administration Insulin Human Lispro 1 - 9 unit 08/22/22 17:00 08/28/22 17:20 Insulin Lispro 300 Unit/3 Ml Pen SUBQ Not Given 0800,1200,1700,2100 [facility] Protocol Insulin Human Lispro 8 unit 08/28/22 12:00 08/28/22 17:21 Insulin Lispro 300 Unit/3 Ml Pen SUBQ 8 unit 1200,1700 ADRI Administration Losartan Potassium 50 mg 08/10/22 09:00 08/28/22 08:58 Losartan 50 Mg Tablet PO 50 mg BID ADRI Administration Metformin HCl 1,000 mg 08/18/22 17:00 08/28/22 17:21 Metformin 500 Mg Tablet PO 1,000 mg BIDWM ADRI Administration Metoclopramide HCl 5 mg 08/11/22 22:37 08/11/22 23:00 Metoclopramide 10 Mg/2 Ml Vial IVP 5 mg Q6HR PRN Administration NEEDED PER PROVIDER ORDERS Metoprolol Tartrate 25 mg 08/10/22 09:00 08/28/22 09:02 Metoprolol Tartrate 25 Mg Tablet PO 25 mg BID ADRI Administration Multi-Ingred Cream/Lotion/Oil/Oint 1 applic 08/22/22 15:55 08/23/22 20:49 Mineral Oil/Petrolat Ophth Oint EACHEYE 1 applic QPM PRN Administration Dry Eye Multi-Ingredient Ointment 1 applic 08/13/22 18:12 08/13/22 18:46 Zinc Oxide 20% Oint 30 Gm Tube TOP 1 applic PRN PRN Administration Skin Care Multivitamins/Minerals 1 tab 08/15/22 09:00 08/28/22 08:59 Multivitamin W/Minerals Tablet PO 1 tab DAILYWM ADRI Administration Ondansetron HCl 4 mg 08/09/22 21:56 08/16/22 08:38 Ondansetron 4 Mg/2 Ml Vial IVP 4 mg Q6HR PRN Administration Nausea / Vomiting Pantoprazole Sodium 40 mg 08/10/22 07:00 08/28/22 05:58 Pantoprazole 40 Mg Tablet PO 40 mg QDAC ADRI Administration Systane Eye Drops 1 each 08/24/22 16:00 08/28/22 03:12 EACHEYE 1 each PRN PRN Administration DRY EYE Saccharomyces Boulardii 250 mg 08/17/22 17:00 08/28/22 17:21 Saccharomyces Boulardii 250 Mg Capsule PO 250 mg BIDWM ADRI Administration Sodium Chloride 10 ml 08/09/22 21:56 08/27/22 23:49 Sodium Chloride Flush 0.9% 10 Ml Syringe IVP 10 ml PRN PRN Administration NEEDED PER PROVIDER ORDERS Sodium Chloride 10 ml 08/10/22 01:00 08/28/22 17:21 Sodium Chloride Flush 0.9% 10 Ml Syringe IVP 10 ml 0100,0900,1700 ADRI Administration Sodium Chloride 20 ml 08/25/22 03:57 08/25/22 05:50 Sodium Chloride Flush 0.9% 10 Ml Syringe IVP 20 ml PRN PRN Administration After Blood Draw Throat Lozenges 1 lozenge 08/10/22 01:01 08/17/22 16:28 Benzocaine/Menthol Lozenge MM 1 lozenge Q2HR PRN Administration Throat pain - Lab Result Fish Bone Diagrams: 08/28/22 09:15 08/26/22 06:01 - Additional Planning My Orders: My Active Orders 08/28/22 12:00 Insulin Lispro [Humalog Kwikpen U-100] 8 unit SUBQ 1200,1700 08/28/22 16:36 Daily Dressing Change [RC] UD 08/28/22 21:00 Insulin Glargine-Yfgn [Semglee] 10 unit SUBQ QPM 08/29/22 08:00 Insulin Lispro [Humalog Kwikpen U-100] 10 unit SUBQ 0800 Subjective - Subjective Patient Reports: Feeling Better, Resting Comfortably Objective Vital Signs: Vital Signs - 24 hr 08/27/22 08/27/22 08/28/22 21:30 23:45 08:00 Temperature 36.8 C 36.4 C L Heart Rate [ 84 79 Brachial] Respiratory 16 18 Rate Blood Pressure 136/67 H Blood Pressure 107/63 133/65 H [Right Radial artery] O2 Saturation 98 99 08/28/22 08/28/22 09:02 16:00 Temperature 36.7 C Heart Rate [ 83 Brachial] Respiratory 18 Rate Blood Pressure 133/65 H Blood Pressure 118/89 H [Right Radial artery] O2 Saturation Oxygen O2 Source Room air I&O (Last 24 Hrs): Intake and Output Totals x24h 08/26/22 08/27/22 08/28/22 23:59 23:59 23:59 Intake Total 940 1606 640 Balance 940 1606 640 General: Alert, Oriented x3 HEENT: Mucous membr. moist/pink Neck: Supple Neuro: Alert, Other (sensation abn both feet) Cardiovascular: Regular rate Respiratory: No respiratory distress Abdomen: Soft, Other (obese) Extremities: No edema, Other (L foot and toes bandaged) - Results Results: Laboratory Results WBC 8.0 x10^3/uL (4.8-10.8) 08/28/22 09:15 RBC 4.31 10^6/uL (4.70-6.10) L 08/28/22 09:15 Hgb 11.0 g/dL (14.0-18.0) L 08/28/22 09:15 Hct 34.8 % (42.0-52.0) L 08/28/22 09:15 MCV 80.7 fL (80.0-94.0) 08/28/22 09:15 MCH 25.5 pg (27.0-31.0) L 08/28/22 09:15 MCHC 31.6 g/dL (32.0-36.0) L 08/28/22 09:15 RDW 13.6 % (12.0-15.0) 08/28/22 09:15 Plt Count 506 10^3/uL (130-450) H 08/28/22 09:15 MPV 9.0 fL (7.4-11.4) 08/28/22 09:15 Reticulocyte % (Auto) 1.17 % (0.5-2.3) 08/24/22 04:19 Neut # (Auto) 5.5 10^3/uL (1.5-6.6) 08/28/22 09:15 Lymph # (Auto) 1.8 10^3/uL (1.5-3.5) 08/28/22 09:15 [place] # (Auto) 0.5 10^3/uL (0.0-1.0) 08/28/22 09:15 Eos # (Auto) 0.2 10^3/uL (0.0-0.7) 08/28/22 09:15 Baso # (Auto) 0.0 10^3/uL (0.0-0.1) 08/28/22 09:15 Absolute Nucleated RBC 0.00 x10^3/uL 08/28/22 09:15 Total Counted 100 08/09/22 19:59 Band Neuts % (Manual) 2 % (0-10) 08/09/22 19:59 Abnorm Lymph % (Manual) 0 % 08/09/22 19:59 Nucleated RBC % 0.0 /100WBC 08/28/22 09:15 Neutrophils # (Manual) 18.7 10^3/uL (1.5-6.6) H 08/09/22 19:59 Lymphocytes # (Manual) 1.3 10^3/uL (1.5-3.5) L 08/09/22 19:59 Monocytes # (Manual) 1.3 10^3/uL (0.0-1.0) H 08/09/22 19:59 Eosinophils # (Manual) 0.0 10^3/uL (0-0.7) 08/09/22 19:59 Basophils # (Manual) 0.0 10^3/uL (0-0.1) 08/09/22 19:59 Differential Comment MANUAL DIFFERENTIAL 08/09/22 19:59 WBC Morphology 2+ TOXIC GRANULATION (NORMAL) 08/09/22 19:59 Platelet Estimate NORMAL (130-450,000) (NORMAL) 08/09/22 19:59 Platelet Morphology NORMAL APPEARANCE (NORMAL) 08/09/22 19:59 RBC Morph Micro Appear NORMAL APPEARANCE (NORMAL) 08/09/22 19:59 ESR 64 mm/Hr (0-15) H 08/09/22 19:59 Absolute Retic 0.046 10^6/uL (0.020-0.110) 08/24/22 04:19 Sodium 137 mmol/L (135-145) 08/26/22 06:01 Potassium 4.3 mmol/L (3.5-5.0) 08/26/22 06:01 Chloride 100 mmol/L (101-111) L 08/26/22 06:01 Carbon Dioxide 28 mmol/L (21-32) 08/26/22 06:01 Anion Gap 9.0 (6-13) 08/26/22 06:01 BUN 28 mg/dL (6-20) H 08/26/22 06:01 Creatinine 0.9 mg/dL (0.6-1.2) 08/26/22 06:01 Estimated GFR (MDRD) 93 (>89) 08/26/22 06:01 Glucose 140 mg/dL (70-100) H 08/26/22 06:01 POC Whole Bld Glucose 132 mg/dL (70 - 100) H 08/28/22 16:45 Estimat Average Glucose 298 mg/dL (70-100) H 08/10/22 06:26 Hemoglobin A1c % 12.0 % (4.27-6.07) H 08/10/22 06:26 Lactic Acid 1.4 mmol/L (0.5-2.2) 08/09/22 21:46 Calcium 8.9 mg/dL (8.5-10.3) 08/26/22 06:01 Magnesium 2.3 mg/dL (1.7-2.8) 08/18/22 04:43 Iron 24 ug/dL (45-182) L 08/24/22 04:19 Iron 27 ug/dL (45-182) L 08/24/22 04:19 TIBC 273 ug/dL (250-450) 08/24/22 04:19 % Saturation 9 % (20-50) L 08/24/22 04:19 Transferrin 195 mg/dL (180-329) 08/24/22 04:19 Ferritin 95.4 ng/mL (23.9-336.2) 08/24/22 04:19 Total Bilirubin 1.4 mg/dL (0.2-1.0) H 08/10/22 06:26 AST 22 IU/L (10-42) 08/10/22 06:26 ALT 21 IU/L (10-60) 08/10/22 06:26 Alkaline Phosphatase 113 IU/L (42-121) 08/10/22 06:26 Lactate Dehydrogenase 100 IU/L (91-225) 08/24/22 04:19 C-Reactive Protein 7.1 mg/dL (0-1.0) H 08/28/22 09:15 Total Protein 6.6 g/dL (6.7-8.2) L 08/10/22 06:26 Albumin 2.7 g/dL (3.2-5.5) L 08/10/22 06:26 Globulin 3.9 g/dL (2.1-4.2) 08/10/22 06:26 Albumin/Globulin Ratio 0.7 (1.0-2.2) L 08/10/22 06:26 Triglycerides 136 mg/dL (-149) 08/10/22 06:26 Cholesterol 153 mg/dL (-199) 08/10/22 06:26 LDL Cholesterol, Calc 97 mg/dL (-129) 08/10/22 06:26 VLDL Cholesterol 27 mg/dL 08/10/22 06:26 HDL Cholesterol 29 mg/dL (60-) L 08/10/22 06:26 LDL/HDL Ratio 3.3 (<3.6) 08/10/22 06:26 Cholesterol/HDL Ratio 5.3 (<5.0) 08/10/22 06:26 Lipase 23 U/L (22-51) 08/09/22 19:59 Vitamin B12 201 pg/mL (180-914) 08/24/22 04:19 Procalcitonin 0.84 ng/mL (<0.5) H 08/09/22 21:46 TSH 0.84 uIU/mL (0.34-5.60) 08/10/22 06:26 Urine Color DARK YELLOW 08/09/22 20:27 Urine Clarity CLEAR (CLEAR) 08/09/22 20:27 Urine pH 5.5 PH (5.0-7.5) 08/09/22 20:27 Ur Specific [place] 1.015 (1.002-1.030) 08/09/22 20:27 Urine Protein NEGATIVE mg/dL (NEGATIVE) 08/09/22 20:27 Urine Glucose (UA) >=1000 mg/dL (NEGATIVE) H 08/09/22 20:27 Urine Ketones TRACE mg/dL (NEGATIVE) 08/09/22 20:27 Urine Occult Blood TRACE-INTA (NEGATIVE) 08/09/22 20:27 Urine Nitrite NEGATIVE (NEGATIVE) 08/09/22 20:27 Urine Bilirubin SMALL (NEGATIVE) H 08/09/22 20:27 Urine Urobilinogen 2 E.U./dL (NORMAL) H 08/09/22 20:27 Ur Leukocyte Esterase NEGATIVE (NEGATIVE) 08/09/22 20:27 Ur Microscopic Review NOT INDICATED 08/09/22 20:27 Urine Culture Comments NOT INDICATED 08/09/22 20:27 Nasal Adenovirus (PCR) NOT DETECTED 08/17/22 16:30 Nasal B. parapertussis DNA (PCR) NOT DETECTED 08/17/22 16:30 Nasal Coronavir 229E PCR NOT DETECTED 08/17/22 16:30 Nasal Coronavir HKU1 PCR NOT DETECTED 08/17/22 16:30 Nasal Coronavir NL63 PCR NOT DETECTED 08/17/22 16:30 Nasal Coronavir OC43 PCR NOT DETECTED 08/17/22 16:30 Nasal Enterovir/Rhinovir PCR NOT DETECTED 08/17/22 16:30 Nasal Influenza B PCR NOT DETECTED 08/17/22 16:30 Nasal Influenza A PCR NOT DETECTED 08/17/22 16:30 Nasal Parainfluen 1 PCR NOT DETECTED 08/17/22 16:30 Nasal Parainfluen 2 PCR NOT DETECTED 08/17/22 16:30 Nasal Parainfluen 3 PCR NOT DETECTED 08/17/22 16:30 Nasal Parainfluen 4 PCR NOT DETECTED 08/17/22 16:30 Nasal RSV (PCR) NOT DETECTED 08/17/22 16:30 Nasal B.pertussis DNA PCR NOT DETECTED 08/17/22 16:30 Nasal C.pneumoniae (PCR) NOT DETECTED 08/17/22 16:30 Yannick Human Metapneumo PCR NOT DETECTED 08/17/22 16:30 Nasal M.pneumoniae (PCR) NOT DETECTED 08/17/22 16:30 Nasal SARS-CoV-2 (PCR) NOT DETECTED 08/17/22 16:30 Last Dose Date 08/14/2022 08/14/22 13:55 Last Dose Time 0336 08/14/22 13:55 Vancomycin Trough 16.6 ug/mL (10.0-20.0) 08/14/22 13:55 Sepsis Event Note (H) - Evaluation Current Stage of Sepsis: Ruled out
[2022-08-29] MEDS: PANTOPRAZOLE 40 MG TABLET PO SCH (06:39)
--- NOTE | 2022-08-29 07:43 | PROVIDER PROGRESS NOTE ---
Assessment/Plan - Problem List (1) Diabetic foot infection Assessment/Plan: Patient has improved with the swelling and redness since starting ertapenem on August 20. Patient reports tolerating medication and reports decreased tenderness to left calf and denies edema of either leg. Patient was seen in [facility] 08/26 and it was recommended that he now receive every other daily wound dressing changes. Dr. Peterson saw him today and we discussed this, he said the wound appears to be improving, with no new signs of infection. The CRP has declines from 33 to 3, then up to 7.1. yesterday Plan: Complete ertapenem antibiotic therapy for a total of 6 weeks, or at least 4 weeks iv then 2 weeks po, and continue on probiotics. I hope to reach out to ID and get guidance Continue with QOD wound dressing changes. The exact types of dressing changes will be put in orders for nursing. Patient to remain non-weightbearing, except poss L heel, or a scooter would be optimum. I updated his brother Wai by telephone today about all the above (2) Poorly controlled diabetes mellitus Impression: Patient glucose levels have improved since admission. Patient reports feeling well rested and satisfied with treatment and food from hospital. Patient reports a willingness to commit to lifestyle changes upon discharge from hospital. Plan Continue current insulin therapy, adjust dose when needed Continue on sliding scale before meals Continue on carb-controlled diet (3) Morbid obesity, BMI 50-54.9 This makes care more difficult (4) Immigrant with language difficulty Assessment/Plan: He does understand some [place]. He is not a [place] citizen. His [place] language is Armenian. His brother lives and works in [place], and the brother visits and interprets or we give the brother detailed updates every few days. - Current Meds Current Meds: Current Medications Generic Name Dose Route Start Last Admin Trade Name Freq PRN Reason Stop Dose Admin Acetaminophen 650 mg 08/09/22 21:56 08/23/22 05:15 Acetaminophen 325 Mg Tablet PO 650 mg Q4HR PRN Administration Pain 1 to 4, or Fever Hydrocodone Bitart/Acetaminophen 1 tab 08/09/22 21:56 08/19/22 11:45 Hydrocod/Acetam 10 Mg/325 Mg Tablet PO 1 tab Q4HR PRN Administration Pain 8 to 10 Hydrocodone Bitart/Acetaminophen 1 tab 08/09/22 21:56 08/26/22 12:32 Hydrocod/Acetam 5/325 Mg Tablet PO 1 tab Q4HR PRN Administration Pain 5 to 7 Ascorbic Acid 500 mg 08/24/22 08:00 08/28/22 08:58 Ascorbic Acid 500 Mg Tablet PO 500 mg DAILYWM ADRI Administration Carboxymethylcellulose 1 drops 08/10/22 01:01 08/22/22 17:05 Carboxymethylcellulose Ophth Drops EACHEYE 1 drops PRN PRN Administration Dry Eye Enoxaparin Sodium 40 mg 08/22/22 09:00 08/28/22 20:41 Enoxaparin 40 Mg/0.4 Ml Syringe SUBQ 40 mg BID ADRI Administration Ferrous Gluconate 324 mg 08/24/22 08:00 08/28/22 08:58 Ferrous Gluconate 324 Mg Tablet PO 324 mg DAILYWM ADRI Administration Hydrochlorothiazide 25 mg 08/17/22 09:00 08/28/22 08:58 Hydrochlorothiazide 25 Mg Tablet PO 25 mg DAILY ADRI Administration Ertapenem 1 gm/ Sodium 100 mls @ 200 mls/hr 08/20/22 12:00 08/28/22 09:31 Chloride IV Infused DAILY [facility] Infusion Ibuprofen 400 mg 08/23/22 14:27 08/28/22 13:04 Ibuprofen 400 Mg Tablet PO 400 mg Q6HR PRN Administration PAIN Insulin Glargine-yfgn 40 unit 08/23/22 09:00 08/28/22 09:00 Insulin Glargine-Yfgn 300 Unit/3 Ml Pen SUBQ 40 unit DAILY ADRI Administration Insulin Glargine-yfgn 10 unit 08/28/22 21:00 08/28/22 20:43 Insulin Glargine-Yfgn 300 Unit/3 Ml Pen SUBQ 10 unit QPM ADRI Administration Insulin Human Lispro 1 - 9 unit 08/22/22 17:00 08/28/22 20:33 Insulin Lispro 300 Unit/3 Ml Pen SUBQ Not Given 0800,1200,1700,2100 [facility] Protocol Insulin Human Lispro 8 unit 08/28/22 12:00 08/28/22 17:21 Insulin Lispro 300 Unit/3 Ml Pen SUBQ 8 unit 1200,1700 ADRI Administration Losartan Potassium 50 mg 08/10/22 09:00 08/28/22 20:42 Losartan 50 Mg Tablet PO 50 mg BID ADRI Administration Metformin HCl 1,000 mg 08/18/22 17:00 08/28/22 17:21 Metformin 500 Mg Tablet PO 1,000 mg BIDWM ADRI Administration Metoclopramide HCl 5 mg 08/11/22 22:37 08/11/22 23:00 Metoclopramide 10 Mg/2 Ml Vial IVP 5 mg Q6HR PRN Administration NEEDED PER PROVIDER ORDERS Metoprolol Tartrate 25 mg 08/10/22 09:00 08/28/22 20:42 Metoprolol Tartrate 25 Mg Tablet PO 25 mg BID ADRI Administration Multi-Ingred Cream/Lotion/Oil/Oint 1 applic 08/22/22 15:55 08/23/22 20:49 Mineral Oil/Petrolat Ophth Oint EACHEYE 1 applic QPM PRN Administration Dry Eye Multi-Ingredient Ointment 1 applic 08/13/22 18:12 08/13/22 18:46 Zinc Oxide 20% Oint 30 Gm Tube TOP 1 applic PRN PRN Administration Skin Care Multivitamins/Minerals 1 tab 08/15/22 09:00 08/28/22 08:59 Multivitamin W/Minerals Tablet PO 1 tab DAILYWM ADRI Administration Ondansetron HCl 4 mg 08/09/22 21:56 08/16/22 08:38 Ondansetron 4 Mg/2 Ml Vial IVP 4 mg Q6HR PRN Administration Nausea / Vomiting Pantoprazole Sodium 40 mg 08/10/22 07:00 08/29/22 06:39 Pantoprazole 40 Mg Tablet PO 40 mg QDAC ADRI Administration Systane Eye Drops 1 each 08/24/22 16:00 08/28/22 03:12 EACHEYE 1 each PRN PRN Administration DRY EYE Saccharomyces Boulardii 250 mg 08/17/22 17:00 08/28/22 17:21 Saccharomyces Boulardii 250 Mg Capsule PO 250 mg BIDWM ADRI Administration Sodium Chloride 10 ml 08/09/22 21:56 08/27/22 23:49 Sodium Chloride Flush 0.9% 10 Ml Syringe IVP 10 ml PRN PRN Administration NEEDED PER PROVIDER ORDERS Sodium Chloride 10 ml 08/10/22 01:00 08/28/22 20:48 Sodium Chloride Flush 0.9% 10 Ml Syringe IVP 10 ml 0100,0900,1700 ADRI Administration Sodium Chloride 20 ml 08/25/22 03:57 08/25/22 05:50 Sodium Chloride Flush 0.9% 10 Ml Syringe IVP 20 ml PRN PRN Administration After Blood Draw Throat Lozenges 1 lozenge 08/10/22 01:01 08/17/22 16:28 Benzocaine/Menthol Lozenge MM 1 lozenge Q2HR PRN Administration Throat pain - Lab Result Fish Bone Diagrams: 08/30/22 05:45 08/30/22 05:45 - Additional Planning My Orders: My Active Orders 08/28/22 12:00 Insulin Lispro [Humalog Kwikpen U-100] 8 unit SUBQ 1200,1700 08/28/22 16:36 Daily Dressing Change [RC] UD 08/28/22 21:00 Insulin Glargine-Yfgn [Semglee] 10 unit SUBQ QPM 08/29/22 BMP - BASIC METABOLIC PANEL [CHEM] Routine CBC - COMP BLD CT W/AUTO DIFF [HEME] Urgent 08/29/22 08:00 Insulin Lispro [Humalog Kwikpen U-100] 10 unit SUBQ 0800 08/30/22 05:00 BMP - BASIC METABOLIC PANEL [CHEM] DAILYLAB CBC - COMP BLD CT W/AUTO DIFF [HEME] DAILYLAB CRP - C-REACTIVE PROTEIN [CHEM] DAILYLAB MAGNESIUM [CHEM] DAILYLAB 08/31/22 05:00 CRP - C-REACTIVE PROTEIN [CHEM] DAILYLAB Subjective - Subjective Patient Reports: Resting Comfortably, No Complaints Objective Vital Signs: Vital Signs - 24 hr 08/28/22 08/28/22 08/28/22 08:00 09:02 16:00 Temperature 36.4 C L 36.7 C Heart Rate [ 79 83 Brachial] Respiratory 18 18 Rate Blood Pressure 133/65 H Blood Pressure 133/65 H 118/89 H [Right Radial artery] O2 Saturation 99 08/28/22 08/28/22 20:42 23:32 Temperature 37.1 C Heart Rate [ 94 Brachial] Respiratory 20 Rate Blood Pressure 135/73 H Blood Pressure 119/59 L [Right Radial artery] O2 Saturation 99 Oxygen O2 Source Room air I&O (Last 24 Hrs): Intake and Output Totals x24h 08/27/22 08/28/22 08/29/22 23:59 23:59 23:59 Intake Total 1606 890 Balance 1606 890 General: Alert, Oriented x3 HEENT: Mucous membr. moist/pink Neck: Supple Neuro: Alert Cardiovascular: Regular rate Respiratory: No respiratory distress Abdomen: Soft Extremities: Other (L foot and toes bandaged) - Results Results: Laboratory Results WBC 8.0 x10^3/uL (4.8-10.8) 08/28/22 09:15 RBC 4.31 10^6/uL (4.70-6.10) L 08/28/22 09:15 Hgb 11.0 g/dL (14.0-18.0) L 08/28/22 09:15 Hct 34.8 % (42.0-52.0) L 08/28/22 09:15 MCV 80.7 fL (80.0-94.0) 08/28/22 09:15 MCH 25.5 pg (27.0-31.0) L 08/28/22 09:15 MCHC 31.6 g/dL (32.0-36.0) L 08/28/22 09:15 RDW 13.6 % (12.0-15.0) 08/28/22 09:15 Plt Count 506 10^3/uL (130-450) H 08/28/22 09:15 MPV 9.0 fL (7.4-11.4) 08/28/22 09:15 Reticulocyte % (Auto) 1.17 % (0.5-2.3) 08/24/22 04:19 Neut # (Auto) 5.5 10^3/uL (1.5-6.6) 08/28/22 09:15 Lymph # (Auto) 1.8 10^3/uL (1.5-3.5) 08/28/22 09:15 [place] # (Auto) 0.5 10^3/uL (0.0-1.0) 08/28/22 09:15 Eos # (Auto) 0.2 10^3/uL (0.0-0.7) 08/28/22 09:15 Baso # (Auto) 0.0 10^3/uL (0.0-0.1) 08/28/22 09:15 Absolute Nucleated RBC 0.00 x10^3/uL 08/28/22 09:15 Total Counted 100 02/04/23 19:59 Band Neuts % (Manual) 2 % (0-10) 08/09/22 19:59 Abnorm Lymph % (Manual) 0 % 08/09/22 19:59 Nucleated RBC % 0.0 /100WBC 08/28/22 09:15 Neutrophils # (Manual) 18.7 10^3/uL (1.5-6.6) H 08/09/22 19:59 Lymphocytes # (Manual) 1.3 10^3/uL (1.5-3.5) L 08/09/22 19:59 Monocytes # (Manual) 1.3 10^3/uL (0.0-1.0) H 08/09/22 19:59 Eosinophils # (Manual) 0.0 10^3/uL (0-0.7) 08/09/22 19:59 Basophils # (Manual) 0.0 10^3/uL (0-0.1) 08/09/22 19:59 Differential Comment MANUAL DIFFERENTIAL 08/09/22 19:59 WBC Morphology 2+ TOXIC GRANULATION (NORMAL) 08/09/22 19:59 Platelet Estimate NORMAL (130-450,000) (NORMAL) 08/09/22 19:59 Platelet Morphology NORMAL APPEARANCE (NORMAL) 08/09/22 19:59 RBC Morph Micro Appear NORMAL APPEARANCE (NORMAL) 08/09/22 19:59 ESR 64 mm/Hr (0-15) H 08/09/22 19:59 Absolute Retic 0.046 10^6/uL (0.020-0.110) 08/24/22 04:19 Sodium 137 mmol/L (135-145) 08/26/22 06:01 Potassium 4.3 mmol/L (3.5-5.0) 08/26/22 06:01 Chloride 100 mmol/L (101-111) L 08/26/22 06:01 Carbon Dioxide 28 mmol/L (21-32) 08/26/22 06:01 Anion Gap 9.0 (6-13) 08/26/22 06:01 BUN 28 mg/dL (6-20) H 08/26/22 06:01 Creatinine 0.9 mg/dL (0.6-1.2) 08/26/22 06:01 Estimated GFR (MDRD) 93 (>89) 08/26/22 06:01 Glucose 140 mg/dL (70-100) H 08/26/22 06:01 POC Whole Bld Glucose 118 mg/dL (70 - 100) H 08/29/22 07:33 Estimat Average Glucose 298 mg/dL (70-100) H 08/10/22 06:26 Hemoglobin A1c % 12.0 % (4.27-6.07) H 08/10/22 06:26 Lactic Acid 1.4 mmol/L (0.5-2.2) 08/09/22 21:46 Calcium 8.9 mg/dL (8.5-10.3) 08/26/22 06:01 Magnesium 2.3 mg/dL (1.7-2.8) 08/18/22 04:43 Iron 24 ug/dL (45-182) L 08/24/22 04:19 Iron 27 ug/dL (45-182) L 08/24/22 04:19 TIBC 273 ug/dL (250-450) 08/24/22 04:19 % Saturation 9 % (20-50) L 08/24/22 04:19 Transferrin 195 mg/dL (180-329) 08/24/22 04:19 Ferritin 95.4 ng/mL (23.9-336.2) 08/24/22 04:19 Total Bilirubin 1.4 mg/dL (0.2-1.0) H 08/10/22 06:26 AST 22 IU/L (10-42) 08/10/22 06:26 ALT 21 IU/L (10-60) 08/10/22 06:26 Alkaline Phosphatase 113 IU/L (42-121) 08/10/22 06:26 Lactate Dehydrogenase 100 IU/L (91-225) 08/24/22 04:19 C-Reactive Protein 7.1 mg/dL (0-1.0) H 08/28/22 09:15 Total Protein 6.6 g/dL (6.7-8.2) L 08/10/22 06:26 Albumin 2.7 g/dL (3.2-5.5) L 08/10/22 06:26 Globulin 3.9 g/dL (2.1-4.2) 08/10/22 06:26 Albumin/Globulin Ratio 0.7 (1.0-2.2) L 08/10/22 06:26 Triglycerides 136 mg/dL (-149) 08/10/22 06:26 Cholesterol 153 mg/dL (-199) 08/10/22 06:26 LDL Cholesterol, Calc 97 mg/dL (-129) 08/10/22 06:26 VLDL Cholesterol 27 mg/dL 08/10/22 06:26 HDL Cholesterol 29 mg/dL (60-) L 08/10/22 06:26 LDL/HDL Ratio 3.3 (<3.6) 08/10/22 06:26 Cholesterol/HDL Ratio 5.3 (<5.0) 08/10/22 06:26 Lipase 23 U/L (22-51) 08/09/22 19:59 Vitamin B12 201 pg/mL (180-914) 08/24/22 04:19 Procalcitonin 0.84 ng/mL (<0.5) H 08/09/22 21:46 TSH 0.84 uIU/mL (0.34-5.60) 08/10/22 06:26 Urine Color DARK YELLOW 08/09/22 20:27 Urine Clarity CLEAR (CLEAR) 08/09/22 20:27 Urine pH 5.5 PH (5.0-7.5) 08/09/22 20:27 Ur Specific [place] 1.015 (1.002-1.030) 08/09/22 20:27 Urine Protein NEGATIVE mg/dL (NEGATIVE) 08/09/22 20:27 Urine Glucose (UA) >=1000 mg/dL (NEGATIVE) H 08/09/22 20:27 Urine Ketones TRACE mg/dL (NEGATIVE) 08/09/22 20:27 Urine Occult Blood TRACE-INTA (NEGATIVE) 08/09/22 20:27 Urine Nitrite NEGATIVE (NEGATIVE) 08/09/22 20:27 Urine Bilirubin SMALL (NEGATIVE) H 08/09/22 20:27 Urine Urobilinogen 2 E.U./dL (NORMAL) H 08/09/22 20:27 Ur Leukocyte Esterase NEGATIVE (NEGATIVE) 08/09/22 20:27 Ur Microscopic Review NOT INDICATED 08/09/22 20:27 Urine Culture Comments NOT INDICATED 08/09/22 20:27 Nasal Adenovirus (PCR) NOT DETECTED 08/17/22 16:30 Nasal B. parapertussis DNA (PCR) NOT DETECTED 08/17/22 16:30 Nasal Coronavir 229E PCR NOT DETECTED 08/17/22 16:30 Nasal Coronavir HKU1 PCR NOT DETECTED 08/17/22 16:30 Nasal Coronavir NL63 PCR NOT DETECTED 08/17/22 16:30 Nasal Coronavir OC43 PCR NOT DETECTED 08/17/22 16:30 Nasal Enterovir/Rhinovir PCR NOT DETECTED 08/17/22 16:30 Nasal Influenza B PCR NOT DETECTED 08/17/22 16:30 Nasal Influenza A PCR NOT DETECTED 08/17/22 16:30 Nasal Parainfluen 1 PCR NOT DETECTED 08/17/22 16:30 Nasal Parainfluen 2 PCR NOT DETECTED 08/17/22 16:30 Nasal Parainfluen 3 PCR NOT DETECTED 08/17/22 16:30 Nasal Parainfluen 4 PCR NOT DETECTED 08/17/22 16:30 Nasal RSV (PCR) NOT DETECTED 08/17/22 16:30 Nasal B.pertussis DNA PCR NOT DETECTED 08/17/22 16:30 Nasal C.pneumoniae (PCR) NOT DETECTED 08/17/22 16:30 Yannick Human Metapneumo PCR NOT DETECTED 08/17/22 16:30 Nasal M.pneumoniae (PCR) NOT DETECTED 08/17/22 16:30 Nasal SARS-CoV-2 (PCR) NOT DETECTED 08/17/22 16:30 Last Dose Date 08/14/2022 08/14/22 13:55 Last Dose Time 03308/14/22 13:55 Vancomycin Trough 16.6 ug/mL (10.0-20.0) 08/14/22 13:55 Sepsis Event Note (H) - Evaluation Current Stage of Sepsis: Ruled out
[2022-08-29] MEDS ORDERED: SODIUM CHLORIDE 0.9% MINIBAG 100 ML IV ONE (07:46)
[2022-08-29] MEDS ORDERED: INSULIN GLARGINE-YFGN 300 UNIT/3 ML PEN SUBQ SCH (08:00)
[2022-08-29] MEDS: SODIUM CHLORIDE FLUSH 0.9% 10 ML SYRINGE IVP PRN ×2 (08:05→17:19)
[2022-08-29] MEDS: ERTAPENEM 1 GM in SODIUM CHLORIDE 0.9% MINIBAG 100 ML IV SCH (08:05)
[2022-08-29] MEDS: SODIUM CHLORIDE FLUSH 0.9% 10 ML SYRINGE IVP SCH ×2 (08:05→17:20)
[2022-08-29] MEDS: ENOXAPARIN 40 MG/0.4 ML SYRINGE SUBQ SCH ×2 (08:06→21:20)
[2022-08-29] MEDS: INSULIN GLARGINE-YFGN 300 UNIT/3 ML PEN SUBQ SCH ×2 (08:07→21:24)
[2022-08-29 08:08] LABS: BASOPHILS # (AUTO) 0.1 10^3/uL (0.0-0.1); BASOPHILS % (AUTO) 0.6 %; EOSINOPHILS # (AUTO) 0.2 10^3/uL (0.0-0.7); EOSINOPHILS % (AUTO) 2.7 %; HCT - HEMATOCRIT 33.7 % (42.0-52.0); HGB - HEMOGLOBIN 10.5 g/dL (14.0-18.0); LYMPHOCYTES % (AUTO) 24.3 %; MEAN CORPUSCULAR HEMOGLOBIN 25.5 pg (27.0-31.0); MEAN CORPUSCULAR HGB CONC 31.2 g/dL (32.0-36.0); MONOCYTES # (AUTO) 0.6 10^3/uL (0.0-1.0); MONOCYTES % (AUTO) 7.2 %; NEUTROPHILS # (AUTO) 5.2 10^3/uL (1.5-6.6); NEUTROPHILS % (AUTO) 64.8 %; PLT - PLATELET COUNT 429 10^3/uL (130-450); RED BLOOD COUNT 4.11 10^6/uL (4.70-6.10); RED CELL DISTRIBUTION WIDTH 13.7 % (12.0-15.0)
[2022-08-29] MEDS: INSULIN LISPRO 300 UNIT/3 ML PEN SUBQ SCH ×7 (08:09→21:24)
[2022-08-29] MEDS: hydroCHLOROthiazide 25 MG TABLET PO SCH (08:11)
[2022-08-29] MEDS: metFORMIN 500 MG TABLET PO SCH ×2 (08:11→17:21)
[2022-08-29] MEDS: METOPROLOL TARTRATE 25 MG TABLET PO SCH ×2 (08:11→21:20)
[2022-08-29] MEDS: MULTIVITAMIN W/MINERALS TABLET PO SCH (08:12)
[2022-08-29] MEDS: LOSARTAN 50 MG TABLET PO SCH ×2 (08:12→21:24)
[2022-08-29] MEDS: FERROUS GLUCONATE 324 MG TABLET PO SCH (08:12)
[2022-08-29] MEDS: SACCHAROMYCES BOULARDII 250 MG CAPSULE PO SCH ×2 (08:12→17:18)
[2022-08-29] MEDS: ASCORBIC ACID 500 MG TABLET PO SCH (08:13)
[2022-08-29 08:15] LABS: CREATININE 0.9 mg/dL (0.6-1.2); POTASSIUM 3.9 mmol/L (3.5-5.0)
--- NOTE | 2022-08-29 10:42 | PROVIDER PROGRESS NOTE ---
Subjective - General Admit Date: 08/09/22 Procedure Performed: No surgery performed - Review of Systems General: positive: No symptoms - Other Other Information/Narrative: Patient is sitting comfortably. He reports no pain to his left foot. He denies fever or chills. Objective - Patient Data Vital Signs: Vital Signs x48h Temp Pulse Resp BP BP Pulse Ox 08/29/22 08:11 108/58 L 08/29/22 08:00 36.6 C 70 18 108/58 L 99 Intake & Output: Intake and Output Totals x24h 08/27/22 08/28/22 08/29/22 23:59 23:59 23:59 Intake Total 1606 890 840 Balance 1606 890 840 - Lab Results Lab Results: 08/29/22 07:54 08/29/22 07:54 Other Lab Results: Lab Results x24hrs 08/29/22 08/29/22 08/29/22 Range/Units 07:54 07:54 07:33 WBC 8.0 (4.8-10.8) x10^3/uL RBC 4.11 L (4.70-6.10) 10^6/uL Hgb 10.5 L (14.0-18.0) g/dL Hct 33.7 L (42.0-52.0) % MCV 82.0 (80.0-94.0) fL MCH 25.5 L (27.0-31.0) pg MCHC 31.2 L (32.0-36.0) g/dL RDW 13.7 (12.0-15.0) % Plt Count 429 (130-450) 10^3/uL MPV 9.0 (7.4-11.4) fL Neut # (Auto) 5.2 (1.5-6.6) 10^3/uL Lymph # (Auto) 2.0 (1.5-3.5) 10^3/uL [place] # (Auto) 0.6 (0.0-1.0) 10^3/uL Eos # (Auto) 0.2 (0.0-0.7) 10^3/uL Baso # (Auto) 0.1 (0.0-0.1) 10^3/uL Absolute Nucleated RBC 0.00 x10^3/uL Nucleated RBC % 0.0 /100WBC Sodium 137 (135-145) mmol/L Potassium 3.9 (3.5-5.0) mmol/L Chloride 101 (101-111) mmol/L Carbon Dioxide 25 (21-32) mmol/L Anion Gap 11.0 (6-13) BUN 29 H (6-20) mg/dL Creatinine 0.9 (0.6-1.2) mg/dL Estimated GFR (MDRD) 93 (>89) Glucose 136 H (70-100) mg/dL POC Whole Bld Glucose 118 H (70 - 100) mg/dL Calcium 9.0 (8.5-10.3) mg/dL 08/28/22 08/28/22 08/28/22 Range/Units 20:27 16:45 11:27 WBC (4.8-10.8) x10^3/uL RBC (4.70-6.10) 10^6/uL Hgb (14.0-18.0) g/dL Hct (42.0-52.0) % MCV (80.0-94.0) fL MCH (27.0-31.0) pg MCHC (32.0-36.0) g/dL RDW (12.0-15.0) % Plt Count (130-450) 10^3/uL MPV (7.4-11.4) fL Neut # (Auto) (1.5-6.6) 10^3/uL Lymph # (Auto) (1.5-3.5) 10^3/uL [place] # (Auto) (0.0-1.0) 10^3/uL Eos # (Auto) (0.0-0.7) 10^3/uL Baso # (Auto) (0.0-0.1) 10^3/uL Absolute Nucleated RBC x10^3/uL Nucleated RBC % /100WBC Sodium (135-145) mmol/L Potassium (3.5-5.0) mmol/L Chloride (101-111) mmol/L Carbon Dioxide (21-32) mmol/L Anion Gap (6-13) BUN (6-20) mg/dL Creatinine (0.6-1.2) mg/dL Estimated GFR (MDRD) (>89) Glucose (70-100) mg/dL POC Whole Bld Glucose 99 132 H 158 H (70 - 100) mg/dL Calcium (8.5-10.3) mg/dL - Current Medications Current Medications: Current Medications Generic Name Dose Route Start Last Admin Trade Name Freq PRN Reason Stop Dose Admin Acetaminophen 650 mg 08/09/22 21:56 08/23/22 05:15 Acetaminophen 325 Mg Tablet PO 650 mg Q4HR PRN Administration Pain 1 to 4, or Fever Hydrocodone Bitart/Acetaminophen 1 tab 08/09/22 21:56 08/19/22 11:45 Hydrocod/Acetam 10 Mg/325 Mg Tablet PO 1 tab Q4HR PRN Administration Pain 8 to 10 Hydrocodone Bitart/Acetaminophen 1 tab 08/09/22 21:56 08/26/22 12:32 Hydrocod/Acetam 5/325 Mg Tablet PO 1 tab Q4HR PRN Administration Pain 5 to 7 Ascorbic Acid 500 mg 08/24/22 08:00 08/29/22 08:13 Ascorbic Acid 500 Mg Tablet PO 500 mg DAILYWM ADRI Administration Carboxymethylcellulose 1 drops 08/10/22 01:01 08/22/22 17:05 Carboxymethylcellulose Ophth Drops EACHEYE 1 drops PRN PRN Administration Dry Eye Enoxaparin Sodium 40 mg 08/22/22 09:00 08/29/22 08:06 Enoxaparin 40 Mg/0.4 Ml Syringe SUBQ 40 mg BID ADRI Administration Ferrous Gluconate 324 mg 08/24/22 08:00 08/29/22 08:12 Ferrous Gluconate 324 Mg Tablet PO 324 mg DAILYWM ADRI Administration Hydrochlorothiazide 25 mg 08/17/22 09:00 08/29/22 08:11 Hydrochlorothiazide 25 Mg Tablet PO 25 mg DAILY ADRI Administration Ertapenem 1 gm/ Sodium 100 mls @ 200 mls/hr 08/20/22 12:00 08/29/22 08:05 Chloride IV 200 mls/hr DAILY ADRI Administration Ibuprofen 400 mg 08/23/22 14:27 08/28/22 13:04 Ibuprofen 400 Mg Tablet PO 400 mg Q6HR PRN Administration PAIN Insulin Glargine-yfgn 40 unit 08/23/22 09:00 08/29/22 08:07 Insulin Glargine-Yfgn 300 Unit/3 Ml Pen SUBQ 40 unit DAILY ADRI Administration Insulin Glargine-yfgn 10 unit 08/28/22 21:00 08/28/22 20:43 Insulin Glargine-Yfgn 300 Unit/3 Ml Pen SUBQ 10 unit QPM ADRI Administration Insulin Human Lispro 1 - 9 unit 08/22/22 17:00 08/29/22 08:10 Insulin Lispro 300 Unit/3 Ml Pen SUBQ Not Given 0800,1200,1700,2100 [facility] Protocol Insulin Human Lispro 8 unit 08/28/22 12:00 08/28/22 17:21 Insulin Lispro 300 Unit/3 Ml Pen SUBQ 8 unit 1200,1700 ADRI Administration Insulin Human Lispro 10 unit 08/29/22 08:00 08/29/22 08:09 Insulin Lispro 300 Unit/3 Ml Pen SUBQ 10 unit 0800 ADRI Administration Losartan Potassium 50 mg 08/10/22 09:00 08/29/22 08:12 Losartan 50 Mg Tablet PO 50 mg BID ADRI Administration Metformin HCl 1,000 mg 08/18/22 17:00 08/29/22 08:11 Metformin 500 Mg Tablet PO 1,000 mg BIDWM ADRI Administration Metoclopramide HCl 5 mg 08/11/22 22:37 08/11/22 23:00 Metoclopramide 10 Mg/2 Ml Vial IVP 5 mg Q6HR PRN Administration NEEDED PER PROVIDER ORDERS Metoprolol Tartrate 25 mg 08/10/22 09:00 08/29/22 08:11 Metoprolol Tartrate 25 Mg Tablet PO 25 mg BID ADRI Administration Multi-Ingred Cream/Lotion/Oil/Oint 1 applic 08/22/22 15:55 08/23/22 20:49 Mineral Oil/Petrolat Ophth Oint EACHEYE 1 applic QPM PRN Administration Dry Eye Multi-Ingredient Ointment 1 applic 08/13/22 18:12 08/13/22 18:46 Zinc Oxide 20% Oint 30 Gm Tube TOP 1 applic PRN PRN Administration Skin Care Multivitamins/Minerals 1 tab 08/15/22 09:00 08/29/22 08:12 Multivitamin W/Minerals Tablet PO 1 tab DAILYWM ADRI Administration Ondansetron HCl 4 mg 08/09/22 21:56 08/16/22 08:38 Ondansetron 4 Mg/2 Ml Vial IVP 4 mg Q6HR PRN Administration Nausea / Vomiting Pantoprazole Sodium 40 mg 08/10/22 07:00 08/29/22 06:39 Pantoprazole 40 Mg Tablet PO 40 mg QDAC ADRI Administration Systane Eye Drops 1 each 08/24/22 16:00 08/28/22 03:12 EACHEYE 1 each PRN PRN Administration DRY EYE Saccharomyces Boulardii 250 mg 08/17/22 17:00 08/29/22 08:12 Saccharomyces Boulardii 250 Mg Capsule PO 250 mg BIDWM ADRI Administration Sodium Chloride 10 ml 08/09/22 21:56 08/29/22 08:05 Sodium Chloride Flush 0.9% 10 Ml Syringe IVP 10 ml PRN PRN Administration NEEDED PER PROVIDER ORDERS Sodium Chloride 10 ml 08/10/22 01:00 08/29/22 08:05 Sodium Chloride Flush 0.9% 10 Ml Syringe IVP 10 ml 0100,0900,1700 ADRI Administration Sodium Chloride 20 ml 08/25/22 03:57 08/25/22 05:50 Sodium Chloride Flush 0.9% 10 Ml Syringe IVP 20 ml PRN PRN Administration After Blood Draw Throat Lozenges 1 lozenge 08/10/22 01:01 08/17/22 16:28 Benzocaine/Menthol Lozenge MM 1 lozenge Q2HR PRN Administration Throat pain - Physical Exam Comments/Other: There are 3 ulcers to his left foot. 2 of the 3 ulcers are superficial, full- thickness, showing granulation bases that are clean and without infection. The third ulcer which is the largest is a full-thickness ulcer and communicates to soft tissue overlying fifth metatarsal. This ulcer communicates with the dorsum of the foot and the more proximal aspect of the lateral border of the left foot. There is mild serous drainage. There is minimal superficial necrosis. There is good granulating base forming to the ulcer base. There is no sign of active infection. The swelling is decreased to both left leg and foot. There is still mild swelling present to both. The plantar ulcer over left fifth metatarsal head is clean and granulating well. Overall, there has been significant improvement with treatment to left foot infection. Impression/Plan - Problem List Problem List: Diabetic left foot infection, deep associated with neuropathy but relatively good vascular status. Discussion: The patient has responded to treatment well and is still improving. I do not find any sign of active infection present about left foot. 2 of the 3 ulcers are superficial and are granulating well. The largest of the ulcers is also showing signs of granulation tissue forming to its base and no sign of necrosis or active infection. He has been on intravenous antibiotics and seems to be tolerating these well. At least 6 weeks of antibiotics would probably be helpful. I suspect he could be converted to an oral antibiotic if discharge was being considered with outpatient treatment. My opinion that he should have at least 4 weeks of intravenous antibiotics before considering oral antibiotics. He could be nonweightbearing and use a scooter or walker. He also could be heel weightbearing when standing on left heel. Eventually, I think he may benefit from a diabetic short leg walking cast once swelling is fully resolved. I would continue present treatment with local dressing changes, antibiotics and weightbearing as described above.
[2022-08-29] MEDS: SYSTANE EYE DROPS EACHEYE PRN (17:18)
[2022-08-30] MEDS: SODIUM CHLORIDE FLUSH 0.9% 10 ML SYRINGE IVP PRN ×3 (05:40→23:39)
[2022-08-30] MEDS: PANTOPRAZOLE 40 MG TABLET PO SCH (05:40)
[2022-08-30 05:55] LABS: BASOPHILS % (AUTO) 0.4 %; EOSINOPHILS # (AUTO) 0.3 10^3/uL (0.0-0.7); HCT - HEMATOCRIT 33.8 % (42.0-52.0); HGB - HEMOGLOBIN 10.7 g/dL (14.0-18.0); LYMPHOCYTES # (AUTO) 2.3 10^3/uL (1.5-3.5); LYMPHOCYTES % (AUTO) 26.5 %; MEAN CORPUSCULAR HEMOGLOBIN 25.6 pg (27.0-31.0); MEAN CORPUSCULAR HGB CONC 31.7 g/dL (32.0-36.0); MEAN CORPUSCULAR VOLUME 80.9 fL (80.0-94.0); MEAN PLATELET VOLUME 9.2 fL (7.4-11.4); MONOCYTES # (AUTO) 0.6 10^3/uL (0.0-1.0); MONOCYTES % (AUTO) 6.5 %; NEUTROPHILS # (AUTO) 5.4 10^3/uL (1.5-6.6); NEUTROPHILS % (AUTO) 63.4 %; PLT - PLATELET COUNT 422 10^3/uL (130-450); RED BLOOD COUNT 4.18 10^6/uL (4.70-6.10); RED CELL DISTRIBUTION WIDTH 13.6 % (12.0-15.0); WHITE BLOOD COUNT 8.6 x10^3/uL (4.8-10.8)
[2022-08-30 06:14] LABS: CALCIUM 8.9 mg/dL (8.5-10.3); CREATININE 0.9 mg/dL (0.6-1.2); CRP - C-REACTIVE PROTEIN 3.1 mg/dL (0-1.0); MAGNESIUM 2.4 mg/dL (1.7-2.8); POTASSIUM 4.1 mmol/L (3.5-5.0)
[2022-08-30] MEDS: SODIUM CHLORIDE FLUSH 0.9% 10 ML SYRINGE IVP SCH ×4 (07:03→23:39)
[2022-08-30] MEDS: hydroCHLOROthiazide 25 MG TABLET PO SCH (08:18)
[2022-08-30] MEDS: SACCHAROMYCES BOULARDII 250 MG CAPSULE PO SCH ×2 (08:18→16:45)
[2022-08-30] MEDS: metFORMIN 500 MG TABLET PO SCH ×2 (08:18→16:44)
[2022-08-30] MEDS: MULTIVITAMIN W/MINERALS TABLET PO SCH (08:18)
[2022-08-30] MEDS: METOPROLOL TARTRATE 25 MG TABLET PO SCH ×2 (08:19→20:44)
[2022-08-30] MEDS: FERROUS GLUCONATE 324 MG TABLET PO SCH (08:19)
[2022-08-30] MEDS: ASCORBIC ACID 500 MG TABLET PO SCH (08:19)
[2022-08-30] MEDS: INSULIN LISPRO 300 UNIT/3 ML PEN SUBQ SCH ×7 (08:20→20:39)
[2022-08-30] MEDS: INSULIN GLARGINE-YFGN 300 UNIT/3 ML PEN SUBQ SCH ×2 (08:20→20:44)
[2022-08-30] MEDS: ERTAPENEM 1 GM in SODIUM CHLORIDE 0.9% MINIBAG 100 ML IV SCH (08:21)
[2022-08-30] MEDS: ENOXAPARIN 40 MG/0.4 ML SYRINGE SUBQ SCH ×2 (08:21→20:44)
[2022-08-30] MEDS: LOSARTAN 50 MG TABLET PO SCH ×2 (13:48→20:44)
--- NOTE | 2022-08-30 14:45 | PROVIDER PROGRESS NOTE ---
Assessment/Plan - Problem List (1) Diabetic foot infection Assessment/Plan: Patient has improved with the swelling and redness since starting ertapenem on August 20. Patient reports tolerating medication and reports decreased tenderness to left calf and denies edema of either leg. Patient was seen [facility] and it was recommended that he now receive every other daily wound dressing changes. Dr. Peterson saw him yesterday 08/29 and we discussed him then. He wrote the wound appears to be improving, with no new signs of infection. Labs were reviewed. The CRP has declines from 33 at admission to 3, then up to 7.1 on 08/28, but has come back down to 3 yesterday 08/29, and again 3 today Plan: Complete ertapenem antibiotic therapy for a total of 6 weeks, or at least 4 weeks iv then 2 weeks po, and continue on probiotics. I hope to reach out to ID and get guidance Continue with QOD wound dressing changes. The exact types of dressing changes will be put in orders for nursing. Patient to remain non-weightbearing, except poss L heel, or a scooter would be optimum. I updated his brother Wai by telephone today again, about all the above. The brother is planning on purchasing a scooter. I would like the pt to use it here, so he can be upright, and be walking and not just sitting. (2) Poorly controlled diabetes mellitus Impression: Patient glucose levels have improved since admission. Patient reports feeling well rested and satisfied with treatment and food from hospital. Patient reports a willingness to commit to lifestyle changes upon discharge from hospital. Plan Continue current insulin therapy, adjust dose when needed Continue on sliding scale before meals Continue on carb-controlled diet (3) Morbid obesity, BMI 50-54.9 This makes care more difficult (4) Immigrant with language difficulty Assessment/Plan: He does understand some [place]. He is not a [place] citizen. His [place] language is Monegasque. His brother lives and works in [place], and the brother visits and interprets or we give the brother detailed updates every few days. - Current Meds Current Meds: Current Medications Generic Name Dose Route Start Last Admin Trade Name Freq PRN Reason Stop Dose Admin Acetaminophen 650 mg 08/09/22 21:56 08/23/22 05:15 Acetaminophen 325 Mg Tablet PO 650 mg Q4HR PRN Administration Pain 1 to 4, or Fever Hydrocodone Bitart/Acetaminophen 1 tab 08/09/22 21:56 08/19/22 11:45 Hydrocod/Acetam 10 Mg/325 Mg Tablet PO 1 tab Q4HR PRN Administration Pain 8 to 10 Hydrocodone Bitart/Acetaminophen 1 tab 08/09/22 21:56 08/26/22 12:32 Hydrocod/Acetam 5/325 Mg Tablet PO 1 tab Q4HR PRN Administration Pain 5 to 7 Ascorbic Acid 500 mg 08/24/22 08:00 08/30/22 08:19 Ascorbic Acid 500 Mg Tablet PO 500 mg DAILYWM ADRI Administration Carboxymethylcellulose 1 drops 08/10/22 01:01 08/22/22 17:05 Carboxymethylcellulose Ophth Drops EACHEYE 1 drops PRN PRN Administration Dry Eye Enoxaparin Sodium 40 mg 08/22/22 09:00 08/30/22 08:21 Enoxaparin 40 Mg/0.4 Ml Syringe SUBQ 40 mg BID ADRI Administration Ferrous Gluconate 324 mg 08/24/22 08:00 08/30/22 08:19 Ferrous Gluconate 324 Mg Tablet PO 324 mg DAILYWM ADRI Administration Hydrochlorothiazide 25 mg 08/17/22 09:00 08/30/22 08:18 Hydrochlorothiazide 25 Mg Tablet PO 25 mg DAILY ADRI Administration Ertapenem 1 gm/ Sodium 100 mls @ 200 mls/hr 08/20/22 12:00 08/30/22 08:51 Chloride IV Infused DAILY ADRI Infusion Ibuprofen 400 mg 08/23/22 14:27 08/28/22 13:04 Ibuprofen 400 Mg Tablet PO 400 mg Q6HR PRN Administration PAIN Insulin Glargine-yfgn 40 unit 08/23/22 09:00 08/30/22 08:20 Insulin Glargine-Yfgn 300 Unit/3 Ml Pen SUBQ 40 unit DAILY ADRI Administration Insulin Glargine-yfgn 10 unit 08/28/22 21:00 08/29/22 21:24 Insulin Glargine-Yfgn 300 Unit/3 Ml Pen SUBQ 10 unit QPM ADRI Administration Insulin Human Lispro 1 - 9 unit 08/22/22 17:00 08/30/22 12:28 Insulin Lispro 300 Unit/3 Ml Pen SUBQ 1 unit 0800,1200,1700,2100 ADRI Administration Protocol Insulin Human Lispro 8 unit 08/28/22 12:00 08/30/22 12:28 Insulin Lispro 300 Unit/3 Ml Pen SUBQ 8 unit 1200,1700 ADRI Administration Insulin Human Lispro 10 unit 08/29/22 08:00 08/30/22 08:20 Insulin Lispro 300 Unit/3 Ml Pen SUBQ 10 unit 0800 ADRI Administration Losartan Potassium 50 mg 08/10/22 09:00 08/30/22 13:48 Losartan 50 Mg Tablet PO 50 mg BID ADRI Administration Metformin HCl 1,000 mg 08/18/22 17:00 08/30/22 08:18 Metformin 500 Mg Tablet PO 1,000 mg BIDWM ADRI Administration Metoclopramide HCl 5 mg 08/11/22 22:37 08/11/22 23:00 Metoclopramide 10 Mg/2 Ml Vial IVP 5 mg Q6HR PRN Administration NEEDED PER PROVIDER ORDERS Metoprolol Tartrate 25 mg 08/10/22 09:00 08/30/22 08:19 Metoprolol Tartrate 25 Mg Tablet PO 25 mg BID ADRI Administration Multi-Ingred Cream/Lotion/Oil/Oint 1 applic 08/22/22 15:55 08/23/22 20:49 Mineral Oil/Petrolat Ophth Oint EACHEYE 1 applic QPM PRN Administration Dry Eye Multi-Ingredient Ointment 1 applic 08/13/22 18:12 08/13/22 18:46 Zinc Oxide 20% Oint 30 Gm Tube TOP 1 applic PRN PRN Administration Skin Care Multivitamins/Minerals 1 tab 08/15/22 09:00 08/30/22 08:18 Multivitamin W/Minerals Tablet PO 1 tab DAILYWM ADRI Administration Ondansetron HCl 4 mg 08/09/22 21:56 08/16/22 08:38 Ondansetron 4 Mg/2 Ml Vial IVP 4 mg Q6HR PRN Administration Nausea / Vomiting Pantoprazole Sodium 40 mg 08/10/22 07:00 08/30/22 05:40 Pantoprazole 40 Mg Tablet PO 40 mg QDAC ADRI Administration Systane Eye Drops 1 each 08/24/22 16:00 08/29/22 17:18 EACHEYE 1 each PRN PRN Administration DRY EYE Saccharomyces Boulardii 250 mg 08/17/22 17:00 08/30/22 08:18 Saccharomyces Boulardii 250 Mg Capsule PO 250 mg BIDWM ADRI Administration Sodium Chloride 10 ml 08/09/22 21:56 08/30/22 05:40 Sodium Chloride Flush 0.9% 10 Ml Syringe IVP 10 ml PRN PRN Administration NEEDED PER PROVIDER ORDERS Sodium Chloride 10 ml 08/10/22 01:00 08/30/22 08:20 Sodium Chloride Flush 0.9% 10 Ml Syringe IVP 10 ml 0100,0900,1700 ADRI Administration Sodium Chloride 20 ml 08/25/22 03:57 08/30/22 05:40 Sodium Chloride Flush 0.9% 10 Ml Syringe IVP 20 ml PRN PRN Administration After Blood Draw Throat Lozenges 1 lozenge 08/10/22 01:01 08/17/22 16:28 Benzocaine/Menthol Lozenge MM 1 lozenge Q2HR PRN Administration Throat pain - Lab Result Fish Bone Diagrams: 08/30/22 05:45 08/30/22 05:45 - Additional Planning My Orders: My Active Orders 08/31/22 05:00 CRP - C-REACTIVE PROTEIN [CHEM] DAILYLAB Subjective - Subjective Patient Reports: Resting Comfortably Objective Vital Signs: Vital Signs - 24 hr 08/29/22 08/29/22 08/29/22 16:00 21:20 23:39 Temperature 36.8 C 36.6 C Heart Rate [ 70 Brachial] Heart Rate [ 84 Radial] Respiratory 18 18 Rate Blood Pressure 125/77 Blood Pressure 125/77 [Left Brachial artery] Blood Pressure 118/60 [Right Radial artery] O2 Saturation 98 100 08/30/22 08/30/22 08/30/22 07:46 08:19 12:34 Temperature 36.5 C Heart Rate [ 74 79 Brachial] Heart Rate [ Radial] Respiratory 17 Rate Blood Pressure 109/70 Blood Pressure 109/70 119/77 [Left Brachial artery] Blood Pressure [Right Radial artery] O2 Saturation 98 Oxygen O2 Source Room air I&O (Last 24 Hrs): Intake and Output Totals x24h 08/28/22 08/29/22 08/30/22 23:59 23:59 23:59 Intake Total 890 1960 1020 Balance 890 1960 1020 General: Alert, Oriented x3 HEENT: Atraumatic, EOMI Neck: Supple Neuro: Alert Cardiovascular: Regular rate Respiratory: No respiratory distress Abdomen: Soft, Other (obese) Extremities: No clubbing, No edema, Other (L foot and toes bandaged) - Results Results: Laboratory Results WBC 8.6 x10^3/uL (4.8-10.8) 08/30/22 05:45 RBC 4.18 10^6/uL (4.70-6.10) L 08/30/22 05:45 Hgb 10.7 g/dL (14.0-18.0) L 08/30/22 05:45 Hct 33.8 % (42.0-52.0) L 08/30/22 05:45 MCV 80.9 fL (80.0-94.0) 08/30/22 05:45 MCH 25.6 pg (27.0-31.0) L 08/30/22 05:45 MCHC 31.7 g/dL (32.0-36.0) L 08/30/22 05:45 RDW 13.6 % (12.0-15.0) 08/30/22 05:45 Plt Count 422 10^3/uL (130-450) 08/30/22 05:45 MPV 9.2 fL (7.4-11.4) 08/30/22 05:45 Reticulocyte % (Auto) 1.17 % (0.5-2.3) 08/24/22 04:19 Neut # (Auto) 5.4 10^3/uL (1.5-6.6) 08/30/22 05:45 Lymph # (Auto) 2.3 10^3/uL (1.5-3.5) 08/30/22 05:45 Walker # (Auto) 0.6 10^3/uL (0.0-1.0) 08/30/22 05:45 Eos # (Auto) 0.3 10^3/uL (0.0-0.7) 08/30/22 05:45 Baso # (Auto) 0.0 10^3/uL (0.0-0.1) 08/30/22 05:45 Absolute Nucleated RBC 0.00 x10^3/uL 08/30/22 05:45 Total Counted 100 08/09/22 19:59 Band Neuts % (Manual) 2 % (0-10) 08/09/22 19:59 Abnorm Lymph % (Manual) 0 % 08/09/22 19:59 Nucleated RBC % 0.0 /100WBC 08/30/22 05:45 Neutrophils # (Manual) 18.7 10^3/uL (1.5-6.6) H 08/09/22 19:59 Lymphocytes # (Manual) 1.3 10^3/uL (1.5-3.5) L 08/09/22 19:59 Monocytes # (Manual) 1.3 10^3/uL (0.0-1.0) H 08/09/22 19:59 Eosinophils # (Manual) 0.0 10^3/uL (0-0.7) 08/09/22 19:59 Basophils # (Manual) 0.0 10^3/uL (0-0.1) 08/09/22 19:59 Differential Comment MANUAL DIFFERENTIAL 08/09/22 19:59 WBC Morphology 2+ TOXIC GRANULATION (NORMAL) 08/09/22 19:59 Platelet Estimate NORMAL (130-450,000) (NORMAL) 08/09/22 19:59 Platelet Morphology NORMAL APPEARANCE (NORMAL) 08/09/22 19:59 RBC Morph Micro Appear NORMAL APPEARANCE (NORMAL) 08/09/22 19:59 ESR 64 mm/Hr (0-15) H 08/09/22 19:59 Absolute Retic 0.046 10^6/uL (0.020-0.110) 08/24/22 04:19 Sodium 139 mmol/L (135-145) 08/30/22 05:45 Potassium 4.1 mmol/L (3.5-5.0) 08/30/22 05:45 Chloride 103 mmol/L (101-111) 08/30/22 05:45 Carbon Dioxide 28 mmol/L (21-32) 08/30/22 05:45 Anion Gap 8.0 (6-13) 08/30/22 05:45 BUN 32 mg/dL (6-20) H 08/30/22 05:45 Creatinine 0.9 mg/dL (0.6-1.2) 08/30/22 05:45 Estimated GFR (MDRD) 93 (>89) 08/30/22 05:45 Glucose 134 mg/dL (70-100) H 08/30/22 05:45 POC Whole Bld Glucose 172 mg/dL (70 - 100) H 08/30/22 11:22 Estimat Average Glucose 298 mg/dL (70-100) H 08/10/22 06:26 Hemoglobin A1c % 12.0 % (4.27-6.07) H 08/10/22 06:26 Lactic Acid 1.4 mmol/L (0.5-2.2) 08/09/22 21:46 Calcium 8.9 mg/dL (8.5-10.3) 08/30/22 05:45 Magnesium 2.4 mg/dL (1.7-2.8) 08/30/22 05:45 Iron 24 ug/dL (45-182) L 08/24/22 04:19 Iron 27 ug/dL (45-182) L 08/24/22 04:19 TIBC 273 ug/dL (250-450) 08/24/22 04:19 % Saturation 9 % (20-50) L 08/24/22 04:19 Transferrin 195 mg/dL (180-329) 08/24/22 04:19 Ferritin 95.4 ng/mL (23.9-336.2) 08/24/22 04:19 Total Bilirubin 1.4 mg/dL (0.2-1.0) H 08/10/22 06:26 AST 22 IU/L (10-42) 08/10/22 06:26 ALT 21 IU/L (10-60) 08/10/22 06:26 Alkaline Phosphatase 113 IU/L (42-121) 08/10/22 06:26 Lactate Dehydrogenase 100 IU/L (91-225) 08/24/22 04:19 C-Reactive Protein 3.1 mg/dL (0-1.0) H 08/30/22 05:45 Total Protein 6.6 g/dL (6.7-8.2) L 08/10/22 06:26 Albumin 2.7 g/dL (3.2-5.5) L 08/10/22 06:26 Globulin 3.9 g/dL (2.1-4.2) 08/10/22 06:26 Albumin/Globulin Ratio 0.7 (1.0-2.2) L 08/10/22 06:26 Triglycerides 136 mg/dL (-149) 08/10/22 06:26 Cholesterol 153 mg/dL (-199) 08/10/22 06:26 LDL Cholesterol, Calc 97 mg/dL (-129) 08/10/22 06:26 VLDL Cholesterol 27 mg/dL 08/10/22 06:26 HDL Cholesterol 29 mg/dL (60-) L 08/10/22 06:26 LDL/HDL Ratio 3.3 (<3.6) 08/10/22 06:26 Cholesterol/HDL Ratio 5.3 (<5.0) 08/10/22 06:26 Lipase 23 U/L (22-51) 08/09/22 19:59 Vitamin B12 201 pg/mL (180-914) 08/24/22 04:19 Procalcitonin 0.84 ng/mL (<0.5) H 08/09/22 21:46 TSH 0.84 uIU/mL (0.34-5.60) 08/10/22 06:26 Urine Color DARK YELLOW 08/09/22 20:27 Urine Clarity CLEAR (CLEAR) 08/09/22 20:27 Urine pH 5.5 PH (5.0-7.5) 08/09/22 20:27 Ur Specific Brogan 1.015 (1.002-1.030) 08/09/22 20:27 Urine Protein NEGATIVE mg/dL (NEGATIVE) 08/09/22 20:27 Urine Glucose (UA) >=1000 mg/dL (NEGATIVE) H 08/09/22 20:27 Urine Ketones TRACE mg/dL (NEGATIVE) 08/09/22 20:27 Urine Occult Blood TRACE-INTA (NEGATIVE) 08/09/22 20:27 Urine Nitrite NEGATIVE (NEGATIVE) 08/09/22 20:27 Urine Bilirubin SMALL (NEGATIVE) H 08/09/22 20:27 Urine Urobilinogen 2 E.U./dL (NORMAL) H 08/09/22 20:27 Ur Leukocyte Esterase NEGATIVE (NEGATIVE) 08/09/22 20:27 Ur Microscopic Review NOT INDICATED 08/09/22 20:27 Urine Culture Comments NOT INDICATED 08/09/22 20:27 Nasal Adenovirus (PCR) NOT DETECTED 08/17/22 16:30 Nasal B. parapertussis DNA (PCR) NOT DETECTED 08/17/22 16:30 Nasal Coronavir 229E PCR NOT DETECTED 08/17/22 16:30 Nasal Coronavir HKU1 PCR NOT DETECTED 08/17/22 16:30 Nasal Coronavir NL63 PCR NOT DETECTED 08/17/22 16:30 Nasal Coronavir OC43 PCR NOT DETECTED 08/17/22 16:30 Nasal Enterovir/Rhinovir PCR NOT DETECTED 08/17/22 16:30 Nasal Influenza B PCR NOT DETECTED 08/17/22 16:30 Nasal Influenza A PCR NOT DETECTED 08/17/22 16:30 Nasal Parainfluen 1 PCR NOT DETECTED 08/17/22 16:30 Nasal Parainfluen 2 PCR NOT DETECTED 08/17/22 16:30 Nasal Parainfluen 3 PCR NOT DETECTED 08/17/22 16:30 Nasal Parainfluen 4 PCR NOT DETECTED 08/17/22 16:30 Nasal RSV (PCR) NOT DETECTED 08/17/22 16:30 Nasal B.pertussis DNA PCR NOT DETECTED 08/17/22 16:30 Nasal C.pneumoniae (PCR) NOT DETECTED 08/17/22 16:30 Yannick Human Metapneumo PCR NOT DETECTED 08/17/22 16:30 Nasal M.pneumoniae (PCR) NOT DETECTED 08/17/22 16:30 Nasal SARS-CoV-2 (PCR) NOT DETECTED 08/17/22 16:30 Last Dose Date 08/14/2022 08/14/22 13:55 Last Dose Time 0336 08/14/22 13:55 Vancomycin Trough 16.6 ug/mL (10.0-20.0) 08/14/22 13:55 Sepsis Event Note (H) - Evaluation Current Stage of Sepsis: Ruled out
[2022-08-30] MEDS: IBUPROFEN 400 MG TABLET PO PRN (23:35)
[2022-08-30] MEDS: SYSTANE EYE DROPS EACHEYE PRN (23:36)
[2022-08-31] MEDS: PANTOPRAZOLE 40 MG TABLET PO SCH (06:39)
[2022-08-31] MEDS: METOPROLOL TARTRATE 25 MG TABLET PO SCH ×2 (08:20→21:02)
[2022-08-31] MEDS: LORATADINE 10 MG TABLET PO PRN (08:21)
[2022-08-31] MEDS: MULTIVITAMIN W/MINERALS TABLET PO SCH (08:21)
[2022-08-31] MEDS: FERROUS GLUCONATE 324 MG TABLET PO SCH (08:21)
[2022-08-31] MEDS: hydroCHLOROthiazide 25 MG TABLET PO SCH (08:21)
[2022-08-31] MEDS: LOSARTAN 50 MG TABLET PO SCH ×2 (08:21→21:03)
[2022-08-31] MEDS: metFORMIN 500 MG TABLET PO SCH ×2 (08:21→16:51)
[2022-08-31] MEDS: SACCHAROMYCES BOULARDII 250 MG CAPSULE PO SCH ×2 (08:21→16:51)
[2022-08-31] MEDS: ASCORBIC ACID 500 MG TABLET PO SCH (08:21)
[2022-08-31] MEDS: INSULIN GLARGINE-YFGN 300 UNIT/3 ML PEN SUBQ SCH ×2 (08:22→21:01)
[2022-08-31] MEDS: INSULIN LISPRO 300 UNIT/3 ML PEN SUBQ SCH ×7 (08:22→21:02)
[2022-08-31] MEDS: ENOXAPARIN 40 MG/0.4 ML SYRINGE SUBQ SCH ×2 (08:23→21:02)
[2022-08-31] MEDS: SODIUM CHLORIDE FLUSH 0.9% 10 ML SYRINGE IVP SCH ×3 (08:24→23:31)
[2022-08-31] MEDS: ERTAPENEM 1 GM in SODIUM CHLORIDE 0.9% MINIBAG 100 ML IV SCH (08:24)
[2022-08-31] MEDS: IBUPROFEN 400 MG TABLET PO PRN ×2 (13:47→23:28)
[2022-08-31] MEDS: SYSTANE EYE DROPS EACHEYE PRN (13:57)
--- NOTE | 2022-08-31 17:23 | PROVIDER PROGRESS NOTE ---
Assessment/Plan - Problem List (1) Diabetic foot infection Assessment/Plan: Patient has improved with the swelling and redness since starting ertapenem on August 20. Before that he was on empiric antibx started 08/09/22 and the bacteria were sens to those as well. Patient reports tolerating medication and reports decreased tenderness to left calf and denies edema of either leg. Patient was seen [facility] on 08/26 and it was recommended that he now receive every other daily wound dressing changes, which the nurses are doing. Dr. Peterson last saw him on 08/29 and we discussed him then. He wrote the wound appears to be improving, with no new signs of infection. Labs were reviewed. The CRP has declines from 33 at admission to 3, then up to 7.1 on 08/28, but has come back down to 3 again. Today I looked at his wounds, done when the nurse had the bandages off, and they appear to all be slightly smaller, and the deepest one is less deep. Plan: Complete ertapenem antibiotic therapy, iv treatment for a total of 6 weeks, and continue on probiotics. Today I reached out to ID at to get guidance about his specific case, but no one from ID is "[employer]" today. Continue with QOD wound dressing changes. The exact types of dressing changes will be put in orders for nursing. Patient to remain non-weightbearing, except poss L heel, or a scooter would be optimum. It would be great if the pt could get a scooter while he is still here, to learn (from PT and OT) how to use it and start using it here, so he can be upright, and be walking and not just sitting. His brother Wai was informed of this by me, 2 days ago and is working on obtaining one that can hold a 345 lb patient. (2) Osteomyelitis As per imaging. Plan: Complete ertapenem antibiotic therapy. IV treatment for a total of 6 weeks is planned. This would be through 09/20/22. Today I reached out to ID at to get recommendations about his specific case, but no one from ID is "[employer]" today (it is a Thursday). Poorly controlled diabetes mellitus Impression: Patient glucose levels have improved since admission. Patient reports feeling well rested and satisfied with treatment and food from hospital. Patient reports a willingness to commit to lifestyle changes upon discharge from hospital. Plan Continue current insulin therapy, adjust dose when needed Continue on sliding scale before meals Continue on carb-controlled diet (3) Morbid obesity, BMI 50-54.9 This makes care more difficult (4) Immigrant with language difficulty Assessment/Plan: He does understand some K[place]. He is not a [place] citizen. His [place] language is Croatian. His brother lives and works in [place], and the brother visits and interprets or we give the brother detailed updates every few days. - Current Meds Current Meds: Current Medications Generic Name Dose Route Start Last Admin Trade Name Freq PRN Reason Stop Dose Admin Acetaminophen 650 mg 08/09/22 21:56 08/23/22 05:15 Acetaminophen 325 Mg Tablet PO 650 mg Q4HR PRN Administration Pain 1 to 4, or Fever Hydrocodone Bitart/Acetaminophen 1 tab 08/09/22 21:56 08/19/22 11:45 Hydrocod/Acetam 10 Mg/325 Mg Tablet PO 1 tab Q4HR PRN Administration Pain 8 to 10 Hydrocodone Bitart/Acetaminophen 1 tab 08/09/22 21:56 08/26/22 12:32 Hydrocod/Acetam 5/325 Mg Tablet PO 1 tab Q4HR PRN Administration Pain 5 to 7 Ascorbic Acid 500 mg 08/24/22 08:00 08/31/22 08:21 Ascorbic Acid 500 Mg Tablet PO 500 mg DAILYWM ADRI Administration Carboxymethylcellulose 1 drops 08/10/22 01:01 08/22/22 17:05 Carboxymethylcellulose Ophth Drops EACHEYE 1 drops PRN PRN Administration Dry Eye Enoxaparin Sodium 40 mg 08/22/22 09:00 08/31/22 08:23 Enoxaparin 40 Mg/0.4 Ml Syringe SUBQ 40 mg BID ADIR Administration Ferrous Gluconate 324 mg 08/24/22 08:00 08/31/22 08:21 Ferrous Gluconate 324 Mg Tablet PO 324 mg DAILYWM ADRI Administration Hydrochlorothiazide 25 mg 08/17/22 09:00 08/31/22 08:21 Hydrochlorothiazide 25 Mg Tablet PO 25 mg DAILY ADRI Administration Ertapenem 1 gm/ Sodium 100 mls @ 200 mls/hr 08/20/22 12:00 08/31/22 11:36 Chloride IV Infused DAILY ADRI Infusion Ibuprofen 400 mg 08/23/22 14:27 08/31/22 13:47 Ibuprofen 400 Mg Tablet PO 400 mg Q6HR PRN Administration PAIN Insulin Glargine-yfgn 40 unit 08/23/22 09:00 08/31/22 08:22 Insulin Glargine-Yfgn 300 Unit/3 Ml Pen SUBQ 40 unit DAILY ADRI Administration Insulin Glargine-yfgn 10 unit 08/28/22 21:00 08/30/22 20:44 Insulin Glargine-Yfgn 300 Unit/3 Ml Pen SUBQ 10 unit QPM ADRI Administration Insulin Human Lispro 1 - 9 unit 08/22/22 17:00 08/31/22 16:52 Insulin Lispro 300 Unit/3 Ml Pen SUBQ 1 unit 0800,1200,1700,2100 ADRI Administration Protocol Insulin Human Lispro 8 unit 08/28/22 12:00 08/31/22 16:53 Insulin Lispro 300 Unit/3 Ml Pen SUBQ 8 unit 1200,1700 ADRI Administration Insulin Human Lispro 10 unit 08/29/22 08:00 08/31/22 08:23 Insulin Lispro 300 Unit/3 Ml Pen SUBQ 10 unit 0800 ADRI Administration Loratadine 10 mg 08/31/22 07:44 08/31/22 08:21 Loratadine 10 Mg Tablet PO 10 mg DAILY PRN Administration ITCHING Losartan Potassium 50 mg 08/10/22 09:00 08/31/22 08:21 Losartan 50 Mg Tablet PO 50 mg BID ADRI Administration Metformin HCl 1,000 mg 08/18/22 17:00 08/31/22 16:51 Metformin 500 Mg Tablet PO 1,000 mg BIDWM ADRI Administration Metoclopramide HCl 5 mg 08/11/22 22:37 08/11/22 23:00 Metoclopramide 10 Mg/2 Ml Vial IVP 5 mg Q6HR PRN Administration NEEDED PER PROVIDER ORDERS Metoprolol Tartrate 25 mg 08/10/22 09:00 08/31/22 08:20 Metoprolol Tartrate 25 Mg Tablet PO 25 mg BID ADRI Administration Multi-Ingred Cream/Lotion/Oil/Oint 1 applic 08/22/22 15:55 08/23/22 20:49 Mineral Oil/Petrolat Ophth Oint EACHEYE 1 applic QPM PRN Administration Dry Eye Multi-Ingredient Ointment 1 applic 08/13/22 18:12 08/13/22 18:46 Zinc Oxide 20% Oint 30 Gm Tube TOP 1 applic PRN PRN Administration Skin Care Multivitamins/Minerals 1 tab 08/15/22 09:00 08/31/22 08:21 Multivitamin W/Minerals Tablet PO 1 tab DAILYWM ADRI Administration Ondansetron HCl 4 mg 08/09/22 21:56 08/16/22 08:38 Ondansetron 4 Mg/2 Ml Vial IVP 4 mg Q6HR PRN Administration Nausea / Vomiting Pantoprazole Sodium 40 mg 08/10/22 07:00 08/31/22 06:39 Pantoprazole 40 Mg Tablet PO 40 mg QDAC ADRI Administration Systane Eye Drops 1 each 08/24/22 16:00 08/31/22 13:57 EACHEYE 1 each PRN PRN Administration DRY EYE Saccharomyces Boulardii 250 mg 08/17/22 17:00 08/31/22 16:51 Saccharomyces Boulardii 250 Mg Capsule PO 250 mg BIDWM ADRI Administration Sodium Chloride 10 ml 08/09/22 21:56 08/30/22 23:39 Sodium Chloride Flush 0.9% 10 Ml Syringe IVP 10 ml PRN PRN Administration NEEDED PER PROVIDER ORDERS Sodium Chloride 10 ml 08/10/22 01:00 08/31/22 16:54 Sodium Chloride Flush 0.9% 10 Ml Syringe IVP 10 ml 0100,0900,1700 ADRI Administration Sodium Chloride 20 ml 08/25/22 03:57 08/30/22 05:40 Sodium Chloride Flush 0.9% 10 Ml Syringe IVP 20 ml PRN PRN Administration After Blood Draw Throat Lozenges 1 lozenge 08/10/22 01:01 08/17/22 16:28 Benzocaine/Menthol Lozenge MM 1 lozenge Q2HR PRN Administration Throat pain - Lab Result Fish Bone Diagrams: 08/30/22 05:45 08/30/22 05:45 - Additional Planning My Orders: My Active Orders 08/31/22 07:44 Loratadine [Claritin] 10 mg PO DAILY PRN Subjective - Subjective Patient Reports: Resting Comfortably, No Complaints Objective Vital Signs: Vital Signs - 24 hr 08/30/22 08/30/22 08/31/22 20:44 23:38 08:00 Temperature 36.9 C 36.6 C Heart Rate [ 80 73 Radial] Respiratory 18 17 Rate Blood Pressure 118/67 Blood Pressure 124/71 147/84 H [Right Radial artery] O2 Saturation 99 100 08/31/22 08/31/22 08:20 15:36 Temperature 36.8 C Heart Rate [ 75 Radial] Respiratory 18 Rate Blood Pressure 147/84 H Blood Pressure 120/75 [Right Radial artery] O2 Saturation 98 Oxygen O2 Source Room air I&O (Last 24 Hrs): Intake and Output Totals x24h 08/29/22 08/30/22 08/31/22 23:59 23:59 23:59 Intake Total 1959 1660 1250 Balance 1959 1660 1250 General: Alert, Oriented x3, Other (Appears tired today) HEENT: Mucous membr. moist/pink Neck: Supple Neuro: Alert Cardiovascular: Regular rate Respiratory: No respiratory distress Abdomen: Soft Extremities: No edema, Other (3 ulcers of L foot, all have dry bases) - Results Results: Laboratory Results WBC 8.6 x10^3/uL (4.8-10.8) 08/30/22 05:45 RBC 4.18 10^6/uL (4.70-6.10) L 08/30/22 05:45 Hgb 10.7 g/dL (14.0-18.0) L 08/30/22 05:45 Hct 33.8 % (42.0-52.0) L 08/30/22 05:45 MCV 80.9 fL (80.0-94.0) 08/30/22 05:45 MCH 25.6 pg (27.0-31.0) L 08/30/22 05:45 MCHC 31.7 g/dL (32.0-36.0) L 08/30/22 05:45 RDW 13.6 % (12.0-15.0) 08/30/22 05:45 Plt Count 422 10^3/uL (130-450) 08/30/22 05:45 MPV 9.2 fL (7.4-11.4) 08/30/22 05:45 Reticulocyte % (Auto) 1.17 % (0.5-2.3) 08/24/22 04:19 Neut # (Auto) 5.4 10^3/uL (1.5-6.6) 08/30/22 05:45 Lymph # (Auto) 2.3 10^3/uL (1.5-3.5) 08/30/22 05:45 Cross # (Auto) 0.6 10^3/uL (0.0-1.0) 08/30/22 05:45 Eos # (Auto) 0.3 10^3/uL (0.0-0.7) 08/30/22 05:45 Baso # (Auto) 0.0 10^3/uL (0.0-0.1) 08/30/22 05:45 Absolute Nucleated RBC 0.00 x10^3/uL 08/30/22 05:45 Total Counted 100 08/09/22 19:59 Band Neuts % (Manual) 2 % (0-10) 08/09/22 19:59 Abnorm Lymph % (Manual) 0 % 08/09/22 19:59 Nucleated RBC % 0.0 /100WBC 08/30/22 05:45 Neutrophils # (Manual) 18.7 10^3/uL (1.5-6.6) H 08/09/22 19:59 Lymphocytes # (Manual) 1.3 10^3/uL (1.5-3.5) L 08/09/22 19:59 Monocytes # (Manual) 1.3 10^3/uL (0.0-1.0) H 08/09/22 19:59 Eosinophils # (Manual) 0.0 10^3/uL (0-0.7) 08/09/22 19:59 Basophils # (Manual) 0.0 10^3/uL (0-0.1) 08/09/22 19:59 Differential Comment MANUAL DIFFERENTIAL 08/09/22 19:59 WBC Morphology 2+ TOXIC GRANULATION (NORMAL) 08/09/22 19:59 Platelet Estimate NORMAL (130-450,000) (NORMAL) 08/09/22 19:59 Platelet Morphology NORMAL APPEARANCE (NORMAL) 08/09/22 19:59 RBC Morph Micro Appear NORMAL APPEARANCE (NORMAL) 08/09/22 19:59 ESR 64 mm/Hr (0-15) H 08/09/22 19:59 Absolute Retic 0.046 10^6/uL (0.020-0.110) 08/24/22 04:19 Sodium 139 mmol/L (135-145) 08/30/22 05:45 Potassium 4.1 mmol/L (3.5-5.0) 08/30/22 05:45 Chloride 103 mmol/L (101-111) 08/30/22 05:45 Carbon Dioxide 28 mmol/L (21-32) 08/30/22 05:45 Anion Gap 8.0 (6-13) 08/30/22 05:45 BUN 32 mg/dL (6-20) H 08/30/22 05:45 Creatinine 0.9 mg/dL (0.6-1.2) 08/30/22 05:45 Estimated GFR (MDRD) 93 (>89) 08/30/22 05:45 Glucose 134 mg/dL (70-100) H 08/30/22 05:45 POC Whole Bld Glucose 151 mg/dL (70 - 100) H 08/31/22 16:15 Estimat Average Glucose 298 mg/dL (70-100) H 08/10/22 06:26 Hemoglobin A1c % 12.0 % (4.27-6.07) H 08/10/22 06:26 Lactic Acid 1.4 mmol/L (0.5-2.2) 08/09/22 21:46 Calcium 8.9 mg/dL (8.5-10.3) 08/30/22 05:45 Magnesium 2.4 mg/dL (1.7-2.8) 08/30/22 05:45 Iron 24 ug/dL (45-182) L 08/24/22 04:19 Iron 27 ug/dL (45-182) L 08/24/22 04:19 TIBC 273 ug/dL (250-450) 08/24/22 04:19 % Saturation 9 % (20-50) L 08/24/22 04:19 Transferrin 195 mg/dL (180-329) 08/24/22 04:19 Ferritin 95.4 ng/mL (23.9-336.2) 08/24/22 04:19 Total Bilirubin 1.4 mg/dL (0.2-1.0) H 08/10/22 06:26 AST 22 IU/L (10-42) 08/10/22 06:26 ALT 21 IU/L (10-60) 08/10/22 06:26 Alkaline Phosphatase 113 IU/L (42-121) 08/10/22 06:26 Lactate Dehydrogenase 100 IU/L (91-225) 08/24/22 04:19 C-Reactive Protein 3.4 mg/dL (0-1.0) H 08/31/22 06:35 Total Protein 6.6 g/dL (6.7-8.2) L 08/10/22 06:26 Albumin 2.7 g/dL (3.2-5.5) L 08/10/22 06:26 Globulin 3.9 g/dL (2.1-4.2) 08/10/22 06:26 Albumin/Globulin Ratio 0.7 (1.0-2.2) L 08/10/22 06:26 Triglycerides 136 mg/dL (-149) 08/10/22 06:26 Cholesterol 153 mg/dL (-199) 08/10/22 06:26 LDL Cholesterol, Calc 97 mg/dL (-129) 08/10/22 06:26 VLDL Cholesterol 27 mg/dL 08/10/22 06:26 HDL Cholesterol 29 mg/dL (60-) L 08/10/22 06:26 LDL/HDL Ratio 3.3 (<3.6) 08/10/22 06:26 Cholesterol/HDL Ratio 5.3 (<5.0) 08/10/22 06:26 Lipase 23 U/L (22-51) 08/09/22 19:59 Vitamin B12 201 pg/mL (180-914) 08/24/22 04:19 Procalcitonin 0.84 ng/mL (<0.5) H 08/09/22 21:46 TSH 0.84 uIU/mL (0.34-5.60) 08/10/22 06:26 Urine Color DARK YELLOW 08/09/22 20:27 Urine Clarity CLEAR (CLEAR) 08/09/22 20:27 Urine pH 5.5 PH (5.0-7.5) 08/09/22 20:27 Ur Specific [place] 1.015 (1.002-1.030) 08/09/22 20:27 Urine Protein NEGATIVE mg/dL (NEGATIVE) 08/09/22 20:27 Urine Glucose (UA) >=1000 mg/dL (NEGATIVE) H 08/09/22 20:27 Urine Ketones TRACE mg/dL (NEGATIVE) 08/09/22 20:27 Urine Occult Blood TRACE-INTA (NEGATIVE) 08/09/22 20:27 Urine Nitrite NEGATIVE (NEGATIVE) 08/09/22 20:27 Urine Bilirubin SMALL (NEGATIVE) H 08/09/22 20:27 Urine Urobilinogen 2 E.U./dL (NORMAL) H 08/09/22 20:27 Ur Leukocyte Esterase NEGATIVE (NEGATIVE) 08/09/22 20:27 Ur Microscopic Review NOT INDICATED 08/09/22 20:27 Urine Culture Comments NOT INDICATED 08/09/22 20:27 Nasal Adenovirus (PCR) NOT DETECTED 08/17/22 16:30 Nasal B. parapertussis DNA (PCR) NOT DETECTED 08/17/22 16:30 Nasal Coronavir 229E PCR NOT DETECTED 08/17/22 16:30 Nasal Coronavir HKU1 PCR NOT DETECTED 08/17/22 16:30 Nasal Coronavir NL63 PCR NOT DETECTED 08/17/22 16:30 Nasal Coronavir OC43 PCR NOT DETECTED 08/17/22 16:30 Nasal Enterovir/Rhinovir PCR NOT DETECTED 08/17/22 16:30 Nasal Influenza B PCR NOT DETECTED 08/17/22 16:30 Nasal Influenza A PCR NOT DETECTED 08/17/22 16:30 Nasal Parainfluen 1 PCR NOT DETECTED 08/17/22 16:30 Nasal Parainfluen 2 PCR NOT DETECTED 08/17/22 16:30 Nasal Parainfluen 3 PCR NOT DETECTED 08/17/22 16:30 Nasal Parainfluen 4 PCR NOT DETECTED 08/17/22 16:30 Nasal RSV (PCR) NOT DETECTED 08/17/22 16:30 Nasal B.pertussis DNA PCR NOT DETECTED 08/17/22 16:30 Nasal C.pneumoniae (PCR) NOT DETECTED 08/17/22 16:30 Yannick Human Metapneumo PCR NOT DETECTED 08/17/22 16:30 Nasal M.pneumoniae (PCR) NOT DETECTED 08/17/22 16:30 Nasal SARS-CoV-2 (PCR) NOT DETECTED 08/17/22 16:30 Last Dose Date 08/14/2022 08/14/22 13:55 Last Dose Time 03308/14/22 13:55 Vancomycin Trough 16.6 ug/mL (10.0-20.0) 08/14/22 13:55 Sepsis Event Note (H) - Evaluation Current Stage of Sepsis: Ruled out
[2022-08-31] MEDS: SODIUM CHLORIDE FLUSH 0.9% 10 ML SYRINGE IVP PRN (23:31)
[2022-09-01] MEDS: PANTOPRAZOLE 40 MG TABLET PO SCH (05:56)
[2022-09-01] MEDS: LORATADINE 10 MG TABLET PO PRN (05:56)
[2022-09-01] MEDS: INSULIN LISPRO 300 UNIT/3 ML PEN SUBQ SCH ×7 (09:01→20:58)
[2022-09-01] MEDS: ERTAPENEM 1 GM in SODIUM CHLORIDE 0.9% MINIBAG 100 ML IV SCH (09:01)
[2022-09-01] MEDS: SYSTANE EYE DROPS EACHEYE PRN (09:01)
[2022-09-01] MEDS: INSULIN GLARGINE-YFGN 300 UNIT/3 ML PEN SUBQ SCH ×2 (09:02→20:57)
[2022-09-01] MEDS: metFORMIN 500 MG TABLET PO SCH ×2 (09:03→17:01)
[2022-09-01] MEDS: FERROUS GLUCONATE 324 MG TABLET PO SCH (09:03)
[2022-09-01] MEDS: MULTIVITAMIN W/MINERALS TABLET PO SCH (09:03)
[2022-09-01] MEDS: ENOXAPARIN 40 MG/0.4 ML SYRINGE SUBQ SCH ×2 (09:03→20:57)
[2022-09-01] MEDS: SACCHAROMYCES BOULARDII 250 MG CAPSULE PO SCH ×2 (09:03→17:01)
[2022-09-01] MEDS: LOSARTAN 50 MG TABLET PO SCH ×2 (09:04→20:58)
[2022-09-01] MEDS: SODIUM CHLORIDE FLUSH 0.9% 10 ML SYRINGE IVP SCH ×3 (09:04→23:54)
[2022-09-01] MEDS: hydroCHLOROthiazide 25 MG TABLET PO SCH (09:04)
[2022-09-01] MEDS: METOPROLOL TARTRATE 25 MG TABLET PO SCH ×2 (09:04→20:58)
[2022-09-01] MEDS: ASCORBIC ACID 500 MG TABLET PO SCH (09:04)
--- NOTE | 2022-09-01 15:16 | PROVIDER PROGRESS NOTE ---
Assessment/Plan - Problem List (1) Diabetic foot infection Assessment/Plan: Patient has improved with the swelling and redness since starting ertapenem on August 20. Before that he was on empiric antibx that started 08/09/22 and the bacteria were sens to those empiric antibx as well. Patient reports tolerating medication and reports decreased tenderness to left calf and denies edema of either leg. Patient was seen last in [facility] on 08/26 and it was recommended that he now receive every other daily wound dressing changes, which the nurses are doing. Dr. Fineaw him today and we discussed him today. Labs were reviewed. The CRP has declines from 33 at admission to 3, then up to 7.1 on 08/28, but has come back down to 3 again. I looked at his wounds on 08/31, when the nurse had the bandages off to do QOD dressing changes, and the ulcers all appear to be slightly smaller, and the deepest one is less deep. Plan: Complete ertapenem antibiotic therapy, iv treatment for a total of 6 weeks, and continue on probiotics. Yesterday and today I reached out to ID at to get guidance about his specific case and ask about duration of recommended iv antibx vs oral antibx, but no one from ID is "Rn Ante Partum" at consult line yesterday or today. Continue with QOD wound dressing changes. The exact orders of dressing changes was put in orders for nursing. Patient to remain non-weightbearing, except poss L heel, or a scooter would be optimum. It would be great if the pt could get a scooter while he is still here, to learn (from PT and OT) how to use it and start using it here, so he can be upright, and be walking and not just sitting. His brother Wai was informed of this by me, several days ago and is working on obtaining one that can hold a 345 lb patient. (2) Osteomyelitis As per imaging. Plan: Complete ertapenem antibiotic therapy. IV treatment for a total of 6 weeks is planned. This would be through 09/20/22. Yesterday 08/31 and today 09/01, I reached out to ID at to get guidance about his specific case and ask about duration of recommended iv antibx vs oral antibx, but no one from ID is "Rn Ante Partum" on the consult line yesterday or today. (3) Poorly controlled diabetes mellitus Impression: Patient glucose levels have improved since admission. Patient reports feeling well rested and satisfied with treatment and food from hospital. Patient reports a willingness to commit to lifestyle changes upon discharge from hospital. Plan Continue current insulin therapy, adjust dose when needed Continue on sliding scale before meals Continue on carb-controlled diet (4) Morbid obesity, BMI 50-54.9 This makes care more difficult (5) Immigrant with language difficulty Assessment/Plan: He does understand some [place]ian. He is not a [place] citizen. His belkofski language is Estonian. His brother lives and works in [place], and the brother visits and interprets or we give the brother detailed updates every few days. - Current Meds Current Meds: Current Medications Generic Name Dose Route Start Last Admin Trade Name Freq PRN Reason Stop Dose Admin Acetaminophen 650 mg 08/09/22 21:56 08/23/22 05:15 Acetaminophen 325 Mg Tablet PO 650 mg Q4HR PRN Administration Pain 1 to 4, or Fever Hydrocodone Bitart/Acetaminophen 1 tab 08/09/22 21:56 08/19/22 11:45 Hydrocod/Acetam 10 Mg/325 Mg Tablet PO 1 tab Q4HR PRN Administration Pain 8 to 10 Hydrocodone Bitart/Acetaminophen 1 tab 08/09/22 21:56 08/26/22 12:32 Hydrocod/Acetam 5/325 Mg Tablet PO 1 tab Q4HR PRN Administration Pain 5 to 7 Ascorbic Acid 500 mg 08/24/22 08:00 09/01/22 09:04 Ascorbic Acid 500 Mg Tablet PO 500 mg DAILYWM ADRI Administration Carboxymethylcellulose 1 drops 08/10/22 01:01 08/22/22 17:05 Carboxymethylcellulose Ophth Drops EACHEYE 1 drops PRN PRN Administration Dry Eye Enoxaparin Sodium 40 mg 08/22/22 09:00 09/01/22 09:03 Enoxaparin 40 Mg/0.4 Ml Syringe SUBQ 40 mg BID ADRI Administration Ferrous Gluconate 324 mg 08/24/22 08:00 09/01/22 09:03 Ferrous Gluconate 324 Mg Tablet PO 324 mg DAILYWM ADRI Administration Hydrochlorothiazide 25 mg 08/17/22 09:00 09/01/22 09:04 Hydrochlorothiazide 25 Mg Tablet PO 25 mg DAILY ADRI Administration Ertapenem 1 gm/ Sodium 100 mls @ 200 mls/hr 08/20/22 12:00 09/01/22 09:35 Chloride IV Infused DAILY ADRI Infusion Ibuprofen 400 mg 08/23/22 14:27 08/31/22 23:28 Ibuprofen 400 Mg Tablet PO 400 mg Q6HR PRN Administration PAIN Insulin Glargine-yfgn 40 unit 08/23/22 09:00 09/01/22 09:02 Insulin Glargine-Yfgn 300 Unit/3 Ml Pen SUBQ 40 unit DAILY ADRI Administration Insulin Glargine-yfgn 10 unit 08/28/22 21:00 08/31/22 21:01 Insulin Glargine-Yfgn 300 Unit/3 Ml Pen SUBQ 10 unit QPM ADRI Administration Insulin Human Lispro 1 - 9 unit 08/22/22 17:00 09/01/22 12:08 Insulin Lispro 300 Unit/3 Ml Pen SUBQ 1 unit 0800,1200,1700,2100 ADRI Administration Protocol Insulin Human Lispro 8 unit 08/28/22 12:00 09/01/22 12:08 Insulin Lispro 300 Unit/3 Ml Pen SUBQ 8 unit 1200,1700 ADRI Administration Insulin Human Lispro 10 unit 08/29/22 08:00 09/01/22 09:01 Insulin Lispro 300 Unit/3 Ml Pen SUBQ 10 unit 0800 ADRI Administration Loratadine 10 mg 08/31/22 07:44 09/01/22 05:56 Loratadine 10 Mg Tablet PO 10 mg DAILY PRN Administration ITCHING Losartan Potassium 50 mg 08/10/22 09:00 09/01/22 09:04 Losartan 50 Mg Tablet PO 50 mg BID ADRI Administration Metformin HCl 1,000 mg 08/18/22 17:00 09/01/22 09:03 Metformin 500 Mg Tablet PO 1,000 mg BIDWM ADRI Administration Metoclopramide HCl 5 mg 08/11/22 22:37 08/11/22 23:00 Metoclopramide 10 Mg/2 Ml Vial IVP 5 mg Q6HR PRN Administration NEEDED PER PROVIDER ORDERS Metoprolol Tartrate 25 mg 08/10/22 09:00 09/01/22 09:04 Metoprolol Tartrate 25 Mg Tablet PO 25 mg BID ADRI Administration Multi-Ingred Cream/Lotion/Oil/Oint 1 applic 08/22/22 15:55 08/23/22 20:49 Mineral Oil/Petrolat Ophth Oint EACHEYE 1 applic QPM PRN Administration Dry Eye Multi-Ingredient Ointment 1 applic 08/13/22 18:12 08/13/22 18:46 Zinc Oxide 20% Oint 30 Gm Tube TOP 1 applic PRN PRN Administration Skin Care Multivitamins/Minerals 1 tab 08/15/22 09:00 09/01/22 09:03 Multivitamin W/Minerals Tablet PO 1 tab DAILYWM ADRI Administration Ondansetron HCl 4 mg 08/09/22 21:56 08/16/22 08:38 Ondansetron 4 Mg/2 Ml Vial IVP 4 mg Q6HR PRN Administration Nausea / Vomiting Pantoprazole Sodium 40 mg 08/10/22 07:00 09/01/22 05:56 Pantoprazole 40 Mg Tablet PO 40 mg QDAC ADRI Administration Systane Eye Drops 1 each 08/24/22 16:00 09/01/22 09:01 EACHEYE 1 each PRN PRN Administration DRY EYE Saccharomyces Boulardii 250 mg 08/17/22 17:00 09/01/22 09:03 Saccharomyces Boulardii 250 Mg Capsule PO 250 mg BIDWM ADRI Administration Sodium Chloride 10 ml 08/09/22 21:56 08/31/22 23:31 Sodium Chloride Flush 0.9% 10 Ml Syringe IVP 10 ml PRN PRN Administration NEEDED PER PROVIDER ORDERS Sodium Chloride 10 ml 08/10/22 01:00 09/01/22 09:04 Sodium Chloride Flush 0.9% 10 Ml Syringe IVP 10 ml 0100,0900,1700 ADRI Administration Sodium Chloride 20 ml 08/25/22 03:57 08/30/22 05:40 Sodium Chloride Flush 0.9% 10 Ml Syringe IVP 20 ml PRN PRN Administration After Blood Draw Throat Lozenges 1 lozenge 08/10/22 01:01 08/17/22 16:28 Benzocaine/Menthol Lozenge MM 1 lozenge Q2HR PRN Administration Throat pain - Lab Result Fish Bone Diagrams: 08/30/22 05:45 08/30/22 05:45 - Additional Planning My Orders: My Active Orders 09/01/22 10:45 Daily Weight [RC] 0600 Miscellaenous Nursing Order [RC] ONCE Subjective - Subjective Patient Reports: Feeling Better, Resting Comfortably, No Complaints Objective Vital Signs: Vital Signs - 24 hr 08/31/22 08/31/22 08/31/22 15:36 21:02 23:35 Temperature 36.8 C 36.8 C Heart Rate [ Brachial] Heart Rate [ 75 79 Radial] Respiratory 18 16 Rate Blood Pressure 113/58 L Blood Pressure 135/71 H [Left Brachial artery] Blood Pressure 120/75 [Right Radial artery] O2 Saturation 98 98 09/01/22 09/01/22 08:01 09:04 Temperature 36.7 C Heart Rate [ 68 Brachial] Heart Rate [ Radial] Respiratory 20 Rate Blood Pressure 114/63 Blood Pressure 114/63 [Left Brachial artery] Blood Pressure [Right Radial artery] O2 Saturation 99 Oxygen O2 Source Room air I&O (Last 24 Hrs): Intake and Output Totals x24h 08/30/22 08/31/22 09/01/22 23:59 23:59 23:59 Intake Total 1660 1370 1400 Balance 1660 1370 1400 General: Alert, Oriented x3, No acute distress HEENT: Atraumatic, EOMI Neck: Supple Neuro: Alert Cardiovascular: Regular rate Respiratory: No respiratory distress Abdomen: Soft, Other (obese) Extremities: No edema, Other (L foot and toes are bandaged) - Results Results: Laboratory Results WBC 8.6 x10^3/uL (4.8-10.8) 08/30/22 05:45 RBC 4.18 10^6/uL (4.70-6.10) L 08/30/22 05:45 Hgb 10.7 g/dL (14.0-18.0) L 08/30/22 05:45 Hct 33.8 % (42.0-52.0) L 08/30/22 05:45 MCV 80.9 fL (80.0-94.0) 08/30/22 05:45 MCH 25.6 pg (27.0-31.0) L 08/30/22 05:45 MCHC 31.7 g/dL (32.0-36.0) L 08/30/22 05:45 RDW 13.6 % (12.0-15.0) 08/30/22 05:45 Plt Count 422 10^3/uL (130-450) 08/30/22 05:45 MPV 9.2 fL (7.4-11.4) 08/30/22 05:45 Reticulocyte % (Auto) 1.17 % (0.5-2.3) 08/24/22 04:19 Neut # (Auto) 5.4 10^3/uL (1.5-6.6) 08/30/22 05:45 Lymph # (Auto) 2.3 10^3/uL (1.5-3.5) 08/30/22 05:45 [place] # (Auto) 0.6 10^3/uL (0.0-1.0) 08/30/22 05:45 Eos # (Auto) 0.3 10^3/uL (0.0-0.7) 08/30/22 05:45 Baso # (Auto) 0.0 10^3/uL (0.0-0.1) 08/30/22 05:45 Absolute Nucleated RBC 0.00 x10^3/uL 08/30/22 05:45 Total Counted 100 08/09/22 19:59 Band Neuts % (Manual) 2 % (0-10) 08/09/22 19:59 Abnorm Lymph % (Manual) 0 % 08/09/22 19:59 Nucleated RBC % 0.0 /100WBC 08/30/22 05:45 Neutrophils # (Manual) 18.7 10^3/uL (1.5-6.6) H 08/09/22 19:59 Lymphocytes # (Manual) 1.3 10^3/uL (1.5-3.5) L 08/09/22 19:59 Monocytes # (Manual) 1.3 10^3/uL (0.0-1.0) H 08/09/22 19:59 Eosinophils # (Manual) 0.0 10^3/uL (0-0.7) 08/09/22 19:59 Basophils # (Manual) 0.0 10^3/uL (0-0.1) 08/09/22 19:59 Differential Comment MANUAL DIFFERENTIAL 08/09/22 19:59 WBC Morphology 2+ TOXIC GRANULATION (NORMAL) 08/09/22 19:59 Platelet Estimate NORMAL (130-450,000) (NORMAL) 08/09/22 19:59 Platelet Morphology NORMAL APPEARANCE (NORMAL) 08/09/22 19:59 RBC Morph Micro Appear NORMAL APPEARANCE (NORMAL) 08/09/22 19:59 ESR 64 mm/Hr (0-15) H 08/09/22 19:59 Absolute Retic 0.046 10^6/uL (0.020-0.110) 08/24/22 04:19 Sodium 139 mmol/L (135-145) 08/30/22 05:45 Potassium 4.1 mmol/L (3.5-5.0) 08/30/22 05:45 Chloride 103 mmol/L (101-111) 08/30/22 05:45 Carbon Dioxide 28 mmol/L (21-32) 08/30/22 05:45 Anion Gap 8.0 (6-13) 08/30/22 05:45 BUN 32 mg/dL (6-20) H 08/30/22 05:45 Creatinine 0.9 mg/dL (0.6-1.2) 08/30/22 05:45 Estimated GFR (MDRD) 93 (>89) 08/30/22 05:45 Glucose 134 mg/dL (70-100) H 08/30/22 05:45 POC Whole Bld Glucose 141 mg/dL (70 - 100) H 09/01/22 11:35 Estimat Average Glucose 298 mg/dL (70-100) H 08/10/22 06:26 Hemoglobin A1c % 12.0 % (4.27-6.07) H 08/10/22 06:26 Lactic Acid 1.4 mmol/L (0.5-2.2) 08/09/22 21:46 Calcium 8.9 mg/dL (8.5-10.3) 08/30/22 05:45 Magnesium 2.4 mg/dL (1.7-2.8) 08/30/22 05:45 Iron 24 ug/dL (45-182) L 08/24/22 04:19 Iron 27 ug/dL (45-182) L 08/24/22 04:19 TIBC 273 ug/dL (250-450) 08/24/22 04:19 % Saturation 9 % (20-50) L 08/24/22 04:19 Transferrin 195 mg/dL (180-329) 08/24/22 04:19 Ferritin 95.4 ng/mL (23.9-336.2) 08/24/22 04:19 Total Bilirubin 1.4 mg/dL (0.2-1.0) H 08/10/22 06:26 AST 22 IU/L (10-42) 08/10/22 06:26 ALT 21 IU/L (10-60) 08/10/22 06:26 Alkaline Phosphatase 113 IU/L (42-121) 08/10/22 06:26 Lactate Dehydrogenase 100 IU/L (91-225) 08/24/22 04:19 C-Reactive Protein 3.4 mg/dL (0-1.0) H 08/31/22 06:35 Total Protein 6.6 g/dL (6.7-8.2) L 08/10/22 06:26 Albumin 2.7 g/dL (3.2-5.5) L 08/10/22 06:26 Globulin 3.9 g/dL (2.1-4.2) 08/10/22 06:26 Albumin/Globulin Ratio 0.7 (1.0-2.2) L 08/10/22 06:26 Triglycerides 136 mg/dL (-149) 08/10/22 06:26 Cholesterol 153 mg/dL (-199) 08/10/22 06:26 LDL Cholesterol, Calc 97 mg/dL (-129) 08/10/22 06:26 VLDL Cholesterol 27 mg/dL 08/10/22 06:26 HDL Cholesterol 29 mg/dL (60-) L 08/10/22 06:26 LDL/HDL Ratio 3.3 (<3.6) 08/10/22 06:26 Cholesterol/HDL Ratio 5.3 (<5.0) 08/10/22 06:26 Lipase 23 U/L (22-51) 08/09/22 19:59 Vitamin B12 201 pg/mL (180-914) 08/24/22 04:19 Procalcitonin 0.84 ng/mL (<0.5) H 08/09/22 21:46 TSH 0.84 uIU/mL (0.34-5.60) 08/10/22 06:26 Urine Color DARK YELLOW 08/09/22 20:27 Urine Clarity CLEAR (CLEAR) 08/09/22 20:27 Urine pH 5.5 PH (5.0-7.5) 08/09/22 20:27 Ur Specific [place] 1.015 (1.002-1.030) 08/09/22 20:27 Urine Protein NEGATIVE mg/dL (NEGATIVE) 08/09/22 20:27 Urine Glucose (UA) >=1000 mg/dL (NEGATIVE) H 08/09/22 20:27 Urine Ketones TRACE mg/dL (NEGATIVE) 08/09/22 20:27 Urine Occult Blood TRACE-INTA (NEGATIVE) 08/09/22 20:27 Urine Nitrite NEGATIVE (NEGATIVE) 08/09/22 20:27 Urine Bilirubin SMALL (NEGATIVE) H 08/09/22 20:27 Urine Urobilinogen 2 E.U./dL (NORMAL) H 08/09/22 20:27 Ur Leukocyte Esterase NEGATIVE (NEGATIVE) 08/09/22 20:27 Ur Microscopic Review NOT INDICATED 08/09/22 20:27 Urine Culture Comments NOT INDICATED 08/09/22 20:27 Nasal Adenovirus (PCR) NOT DETECTED 08/17/22 16:30 Nasal B. parapertussis DNA (PCR) NOT DETECTED 08/17/22 16:30 Nasal Coronavir 229E PCR NOT DETECTED 08/17/22 16:30 Nasal Coronavir HKU1 PCR NOT DETECTED 08/17/22 16:30 Nasal Coronavir NL63 PCR NOT DETECTED 08/17/22 16:30 Nasal Coronavir OC43 PCR NOT DETECTED 08/17/22 16:30 Nasal Enterovir/Rhinovir PCR NOT DETECTED 08/17/22 16:30 Nasal Influenza B PCR NOT DETECTED 08/17/22 16:30 Nasal Influenza A PCR NOT DETECTED 08/17/22 16:30 Nasal Parainfluen 1 PCR NOT DETECTED 08/17/22 16:30 Nasal Parainfluen 2 PCR NOT DETECTED 08/17/22 16:30 Nasal Parainfluen 3 PCR NOT DETECTED 08/17/22 16:30 Nasal Parainfluen 4 PCR NOT DETECTED 08/17/22 16:30 Nasal RSV (PCR) NOT DETECTED 08/17/22 16:30 Nasal B.pertussis DNA PCR NOT DETECTED 08/17/22 16:30 Nasal C.pneumoniae (PCR) NOT DETECTED 08/17/22 16:30 Yannick Human Metapneumo PCR NOT DETECTED 08/17/22 16:30 Nasal M.pneumoniae (PCR) NOT DETECTED 08/17/22 16:30 Nasal SARS-CoV-2 (PCR) NOT DETECTED 08/17/22 16:30 Last Dose Date 08/14/2022 08/14/22 13:55 Last Dose Time 33508/14/22 13:55 Vancomycin Trough 16.6 ug/mL (10.0-20.0) 08/14/22 13:55 Sepsis Event Note (H) - Evaluation Current Stage of Sepsis: Ruled out
[2022-09-01] MEDS: IBUPROFEN 400 MG TABLET PO PRN (23:51)
[2022-09-01] MEDS: SODIUM CHLORIDE FLUSH 0.9% 10 ML SYRINGE IVP PRN (23:54)
[2022-09-02] MEDS: PANTOPRAZOLE 40 MG TABLET PO SCH (06:30)
[2022-09-02] MEDS: IBUPROFEN 400 MG TABLET PO PRN ×2 (06:30→12:57)
[2022-09-02] MEDS: INSULIN GLARGINE-YFGN 300 UNIT/3 ML PEN SUBQ SCH ×2 (08:14→21:01)
[2022-09-02] MEDS: INSULIN LISPRO 300 UNIT/3 ML PEN SUBQ SCH ×7 (08:14→21:00)
[2022-09-02] MEDS: ASCORBIC ACID 500 MG TABLET PO SCH (08:16)
[2022-09-02] MEDS: metFORMIN 500 MG TABLET PO SCH ×2 (08:16→17:05)
[2022-09-02] MEDS: hydroCHLOROthiazide 25 MG TABLET PO SCH (08:17)
[2022-09-02] MEDS: SACCHAROMYCES BOULARDII 250 MG CAPSULE PO SCH ×2 (08:17→17:05)
[2022-09-02] MEDS: ENOXAPARIN 40 MG/0.4 ML SYRINGE SUBQ SCH ×2 (08:18→20:55)
[2022-09-02] MEDS: MULTIVITAMIN W/MINERALS TABLET PO SCH (08:18)
[2022-09-02] MEDS: FERROUS GLUCONATE 324 MG TABLET PO SCH (08:18)
[2022-09-02] MEDS: LOSARTAN 50 MG TABLET PO SCH ×2 (08:18→20:57)
[2022-09-02] MEDS: SODIUM CHLORIDE FLUSH 0.9% 10 ML SYRINGE IVP SCH ×2 (08:19→17:05)
[2022-09-02] MEDS: METOPROLOL TARTRATE 25 MG TABLET PO SCH ×2 (08:19→20:59)
[2022-09-02] MEDS: ERTAPENEM 1 GM in SODIUM CHLORIDE 0.9% MINIBAG 100 ML IV SCH (08:19)
[2022-09-02] MEDS: SYSTANE EYE DROPS EACHEYE PRN (12:54)
--- NOTE | 2022-09-02 14:36 | WOUND CARE PROGRESS NOTE ---
Assessment/Plan - Problem List (1) Type 2 diabetes mellitus with foot ulcer Qualifiers: Diabetes mellitus long term care phlebotomist insulin use: with care home use Qualified Code(s): E11.621 - Type 2 diabetes mellitus with foot ulcer; L97.509 - Non- pressure chronic ulcer of other part of unspecified foot with unspecified severity; Z79.4 - watermaster (current) use of insulin Assessment/Plan: Management as per hospital team. Seems to be under adequate control in-house which will optimize healing. (2) Non-pressure chronic ulcer of other part of left foot with other specified severity Assessment/Plan: 42-year-old male hospitalized for diabetic foot ulcerations complicated by osteomyelitis, abscess/phlegmon, cellulitis, and possible septic joint. I previously recommended Zosyn to cover Enterococcus. After discussion with the pharmacist, it appears his hospital team opted for Ertapenem. No detectable signs of infection on exam today. His WBC count remains normal and his reactive thrombocythemia has resolved. His CRP has been hovering around 3 which is still elevated and gives me concern that we may still be missing Enterococcus coverage (Zosyn would be preferred over Ertapenem for this purpose). I do recommend the hospital team consider transitioning from Ertapenem to Zosyn and continue to follow his CRP. Decisions regarding antibiotic therapy and duration are best made in consultation with an Infectious Disease specialist. He remains at high risk for amputation. He has complex wounds. His distal lateral left foot ulcer tunnels extensively. He has protracted course of wound healing in front of him. Status: Improved, as evidenced by decreasing nonviable tissue (but still significant) and freeman measurements. He still lacks a healthy bed of granulation. His main ulcer tunnels extensively. Wounds cleansed with normal saline and Anasept. Left distal lateral foot wound filled with AMD gauze. Left proximal lateral foot wound dressed with collagen and hydrofera blue. Left plantar 5th MTH wound dressed with collagen and hyrofera blue. All wounds then covered with Optilock and secured with rolled gauze and tape. Offloading: Total NWB L foot. Considering starting inpatient NPWT to enhance healing. Goals: Resolve infection Remove necrotic/devitalized tissue Redistribute pressure Repair/Regenerate tissue. Manage co-morbidities Limb salvage Appropriate follow up instructions were given. He was given a follow-up appointment in the outpatient [facility] in 7 days, sooner PRN. (3) Non-pressure chronic ulcer of other part of left foot with fat layer exposed Assessment/Plan: See above. - Home Meds/Allergies Allergies No Known Drug Allergies Allergy (Verified 08/12/22 08:50) Home Medications Losartan [Cozaar] 50 mg PO BID 08/09/22 [History Confirmed 08/09/22] Omeprazole 40 mg PO DAILY 08/09/22 [History Confirmed 08/09/22] hydroCHLOROthiazide [Hydrodiuril] 25 mg PO DAILY 08/10/22 [History Confirmed 08/10/22] metFORMIN [Glucophage] 850 mg PO TIDWM 08/10/22 [History Confirmed 08/10/22] Objective Comments/Notes: Vitals (Done on floor at 0817): T 36.6 C, HR 79, RR 20, BP 125/74. O2 Sat 98% (room air). Constitutional: NAD. Alert and conversant. Respiratory: Normal respiratory effort. Cardiovascular: Regular rate. The left foot and calf are showing only mild edema now. Musculoskeletal: No prior amputations. No foot/toe deformities. Neurological: L foot drop. Loss of protective sensation noted bilateral feet to [place] monofilament testing. Labs: WBC has normalized. H&H show stable mild anemia. Platelet count has normalized. GFR normal. CRP stable in the 3's. Blood sugars in the low to mid 100's. Previously reviewed: Micro: 08/12/22: Wound culture grew klebsiella oxytoca, GBS, and E. faecalis. Anaerobic cultures NG. Anaerobic gram stain did show some GPC and WBCs. 08/09/22: Blood culture no growth x 2. Imagin08/20/22: L foot MRI WO/W contrast demonstrated increased nonenhancement of the intrinsic foot musculature surrounding the fifth metatarsal suspicious for worsening infectious involvement with possible evolving necrosis vs ischemia. Otherwise, there were no significant changes compared to 08/13/22. 08/13/22: L foot MRI WO/W contrast demonstrated findings compatible with osteomyelitis of the 5th metatarsal head and shaft and 5th proximal phalanx, possible septic arthritis in the 5th MTPJ, findings compatible with a 7.8 x 2.1 x 6.2 cm abscess/phlegmon in the dorsal aspect of the forefoot tracking lateral and plantar to the 5th metatarsal, and findings consistent with cellulitis. - Wound Assessment Wound #1 is a full-thickness diabetic foot ulcer of the left lateral foot at the level of the fifth metatarsal head. It measures 2.2 x 2.0 x 0.6 cm (L x W x D). There is extensive tunneling (7:00 with distance of 3.1 cm, 10:00 with distance 5.5 cm, and 11:00 with distance 3.5 cm). There is moderate yellow serous drainage noted which has no odor. The patient reports a wound pain level 0/10. The wound margin is unattached. The wound bed has no epithelialization, no eschar, yes slough, minimal spongy granulation. The periwound skin texture, moisture, temperature, and color are normal. Exposed structures: Fascia. Wound #2 is a full-thickness diabetic foot ulcer of the left plantar foot at the level of the fifth metatarsal head. It measures 2.2 x 1.9 x 0.2 cm (L x W x D). There is no undermining, tunneling, or sinus tracking. There is small amount of serous drainage noted which has no odor. The patient reports a wound pain level 0/10. The wound margin is callused and unattached. The wound bed has no epithelialization, no eschar, yes slough, and firm pink granulation. The periwound skin texture, moisture, temperature, and color are normal. Exposed structures: Adipose. Wound #3 is a full-thickness diabetic foot ulcer of the left lateral foot, proximal. It measures 1.1 x 1.4 x 0.3 cm (L x W x D). There is no undermining, tunneling, or sinus tracking. There is small amount of serous drainage noted which has no odor. The patient reports a wound pain level 0/10. The wound margin is unattached. The wound bed has no epithelialization, no eschar, yes slough, and spongy pink granulation. The periwound skin texture, moisture, temperature, and color are normal. Exposed structures: Adipose. I am unable to demonstrate a communication between the wounds. Subjective - Subjective Patient Reports: Other (No c/o FCS. Denies ulcer pain. Attentive to offloading. No complaints or concerns.) Procedure - Procedure Note Wound #1: After informed consent was obtained, a skin/subcutaneous tissue level surgical debridement with a total area of 5.04 square centimeters was performed by Juan Wren MD. Using a curette, dermis, epidermis, and subcutaneous tissues were removed along with devitalized tissue: Exudate and slough. Pain control was achieved using 5% topical lidocaine. A timeout was conducted prior to the start of the procedure. A moderate amount of bleeding was controlled with pressure. The procedure was tolerated well. Postdebridement measurements: 2.4 x 2.1 x 0.8 cm (L x W x D). Wound #2: After informed consent was obtained, a skin/subcutaneous tissue level surgical debridement with a total area of 5.88 square centimeters was performed by Juan Wren MD. Using a curette, dermis, epidermis, and subcutaneous tissues were removed along with devitalized tissue: Callus, exudate and slough. Pain control was achieved using 5% topical lidocaine. A timeout was conducted prior to the start of the procedure. A moderate amount of bleeding was controlled with QuikClot and pressure. The procedure was tolerated well. Postdebridement measurements: 3.3 x 1.9 x 0.8 cm (L x W x D). Wound #3: After informed consent was obtained, a skin/subcutaneous tissue level surgical debridement with a total area of 2.10 square centimeters was performed by Juan Wren MD. Using a curette, dermis, epidermis, and subcutaneous tissues were removed along with devitalized tissue: Exudate and slough. Pain control was achieved using 5% topical lidocaine. A timeout was conducted prior to the start of the procedure. A moderate amount of bleeding was controlled with pressure. The procedure was tolerated well. Postdebridement measurements: 1.4 x 1.5 x 0.5 cm (L x W x D).
--- NOTE | 2022-09-02 19:39 | PROVIDER PROGRESS NOTE ---
Subjective - Prog Note Date Prog Note Date: 09/02/22 Prog Note Time: 19:36 - Subjective Pt reports feeling: Improved Subjective: he was seen this morning . Using a walker and was at the window seat. Walks on the foot but fast weight bearing to then offload and use his other foot. denies cp, cough, sob. "I feel good. I feel ok" as he says in afghan. His only new concern was an itching rash from sitting in his chair where his skin came in contact. It started on his back as an itching red rash, then he scratched it and his face and front of chest got it. Started on some itching med and "now it's gone" Seen in wound clinic today and note read. Current Medications - Current Medications Current Medications: Active Medications Acetaminophen (Acetaminophen 325 Mg Tablet) 650 mg PO Q4HR PRN PRN Reason: Pain 1 to 4, or Fever Last Admin: 08/23/22 05:15 Dose: 650 mg Hydrocodone Bitart/Acetaminophen (Hydrocod/Acetam 10 Mg/325 Mg Tablet) 1 tab PO Q4HR PRN PRN Reason: Pain 8 to 10 Last Admin: 08/19/22 11:45 Dose: 1 tab Hydrocodone Bitart/Acetaminophen (Hydrocod/Acetam 5/325 Mg Tablet) 1 tab PO Q4HR PRN PRN Reason: Pain 5 to 7 Last Admin: 08/26/22 12:32 Dose: 1 tab Ascorbic Acid (Ascorbic Acid 500 Mg Tablet) 500 mg PO DAILYWM [facility] Last Admin: 09/02/22 08:16 Dose: 500 mg Carboxymethylcellulose (Carboxymethylcellulose Ophth Drops) 1 drops EACHEYE PRN PRN PRN Reason: Dry Eye Last Admin: 08/22/22 17:05 Dose: 1 drops Enoxaparin Sodium (Enoxaparin 40 Mg/0.4 Ml Syringe) 40 mg SUBQ BID [facility] Last Admin: 09/02/22 08:18 Dose: 40 mg Ferrous Gluconate (Ferrous Gluconate 324 Mg Tablet) 324 mg PO DAILYWM [facility] Last Admin: 09/02/22 08:18 Dose: 324 mg Hydrochlorothiazide (Hydrochlorothiazide 25 Mg Tablet) 25 mg PO DAILY [facility] Last Admin: 09/02/22 08:17 Dose: 25 mg Ertapenem 1 gm/ Sodium (Chloride) 100 mls @ 200 mls/hr IV DAILY [facility] Last Infusion: 09/02/22 08:50 Dose: Infused Ibuprofen (Ibuprofen 400 Mg Tablet) 400 mg PO Q6HR PRN PRN Reason: PAIN Last Admin: 09/02/22 12:57 Dose: 400 mg Insulin Glargine-yfgn (Insulin Glargine-Yfgn 300 Unit/3 Ml Pen) 40 unit SUBQ DAILY [facility] Last Admin: 09/02/22 08:14 Dose: 40 unit Insulin Glargine-yfgn (Insulin Glargine-Yfgn 300 Unit/3 Ml Pen) 10 unit SUBQ QPM [facility] Last Admin: 09/01/22 20:57 Dose: 10 unit Insulin Human Lispro (Insulin Lispro 300 Unit/3 Ml Pen) 1 - 9 unit SUBQ 0800,1200,1700,2100 [facility]; Protocol Last Admin: 09/02/22 17:05 Dose: Not Given Insulin Human Lispro (Insulin Lispro 300 Unit/3 Ml Pen) 8 unit SUBQ 1200,1700 [facility] Last Admin: 09/02/22 17:04 Dose: 8 unit Insulin Human Lispro (Insulin Lispro 300 Unit/3 Ml Pen) 10 unit SUBQ 0800 [facility] Last Admin: 09/02/22 08:14 Dose: 10 unit Loratadine (Loratadine 10 Mg Tablet) 10 mg PO DAILY PRN PRN Reason: ITCHING Last Admin: 09/01/22 05:56 Dose: 10 mg Losartan Potassium (Losartan 50 Mg Tablet) 50 mg PO BID [facility] Last Admin: 09/02/22 08:18 Dose: 50 mg Metformin HCl (Metformin 500 Mg Tablet) 1,000 mg PO BIDWM [facility] Last Admin: 09/02/22 17:05 Dose: 1,000 mg Metoclopramide HCl (Metoclopramide 10 Mg/2 Ml Vial) 5 mg IVP Q6HR PRN PRN Reason: NEEDED PER PROVIDER ORDERS Last Admin: 08/11/22 23:00 Dose: 5 mg Metoprolol Tartrate (Metoprolol Tartrate 25 Mg Tablet) 25 mg PO BID [facility] Last Admin: 09/02/22 08:19 Dose: 25 mg Multi-Ingred Cream/Lotion/Oil/Oint (Mineral Oil/Petrolat Ophth Oint) 1 applic EACHEYE QPM PRN PRN Reason: Dry Eye Last Admin: 08/23/22 20:49 Dose: 1 applic Multi-Ingredient Ointment (Zinc Oxide 20% Oint 30 Gm Tube) 1 applic TOP PRN PRN PRN Reason: Skin Care Last Admin: 08/13/22 18:46 Dose: 1 applic Multivitamins/Minerals (Multivitamin W/Minerals Tablet) 1 tab PO DAILYWM [facility] Last Admin: 09/02/22 08:18 Dose: 1 tab Ondansetron HCl (Ondansetron 4 Mg/2 Ml Vial) 4 mg IVP Q6HR PRN PRN Reason: Nausea / Vomiting Last Admin: 08/16/22 08:38 Dose: 4 mg Pantoprazole Sodium (Pantoprazole 40 Mg Tablet) 40 mg PO QDAC [facility] Last Admin: 09/02/22 06:30 Dose: 40 mg Systane Eye Drops 1 each EACHEYE PRN PRN PRN Reason: DRY EYE Last Admin: 09/02/22 12:54 Dose: 1 each Saccharomyces Boulardii (Saccharomyces Boulardii 250 Mg Capsule) 250 mg PO BIDWM [facility] Last Admin: 09/02/22 17:05 Dose: 250 mg Sodium Chloride (Sodium Chloride Flush 0.9% 10 Ml Syringe) 10 ml IVP PRN PRN PRN Reason: NEEDED PER PROVIDER ORDERS Last Admin: 09/01/22 23:54 Dose: 10 ml Sodium Chloride (Sodium Chloride Flush 0.9% 10 Ml Syringe) 10 ml IVP 0100,0900,1700 [facility] Last Admin: 09/02/22 17:05 Dose: 10 ml Sodium Chloride (Sodium Chloride Flush 0.9% 10 Ml Syringe) 20 ml IVP PRN PRN PRN Reason: After Blood Draw Last Admin: 08/30/22 05:40 Dose: 20 ml Throat Lozenges (Benzocaine/Menthol Lozenge) 1 lozenge MM Q2HR PRN PRN Reason: Throat pain Last Admin: 08/17/22 16:28 Dose: 1 lozenge Losartan [Cozaar] 50 mg PO BID 08/09/22 Omeprazole 40 mg PO DAILY 08/09/22 hydroCHLOROthiazide [Hydrodiuril] 25 mg PO DAILY 08/10/22 metFORMIN [Glucophage] 850 mg PO TIDWM 08/10/22 Objective - Vital Signs/Intake & Output Reviewed Vital Signs: Yes Vital Signs: Vital Signs x48h Temp Pulse Resp BP Pulse Ox 09/02/22 15:59 36.9 C 81 18 130/80 97 Intake & Output: Intake & Output 08/30/22 08/31/22 09/01/22 09/02/22 23:59 23:59 23:59 23:59 Intake Total 1660 1370 1520 1320 Balance 1660 1370 1520 1320 - Objective General Appearance: positive: Alert, Other (morbidly obese male, bearded, NAD, comfortable) Eyes Bilateral: positive: PERRL, EOMI Neck: positive: No JVD Respiratory: positive: No respiratory distress. negative: Wheezes, Rales, Rhon chi Cardiovascular: positive: Regular rate & rhythm Abdomen: positive: Non-tender Skin: positive: Warm, Dry Extremities: positive: Full ROM, Other (signs of chronic edema w hemosiderin deposits on legs, edema of L foot 1+ and edema of R foot gone. BAndaged foot. clean dressing.) Neurologic/Psychiatric: positive: Oriented x3, CN's nml (2-12), Motor nml - Lab Results Fish Bones: 08/30/22 05:45 08/30/22 05:45 Other Labs: Lab Results x24hrs 09/02/22 09/02/22 09/02/22 Range/Units 16:28 11:24 07:25 POC Whole Bld Glucose 92 127 H 139 H (70 - 100) mg/dL 09/01/22 Range/Units 20:28 POC Whole Bld Glucose 100 (70 - 100) mg/dL ABX Reporting Has patient been on IV antibiotics over the past 48 hours?: Yes Sepsis Event Note (H) - Evaluation Current Stage of Sepsis: Ruled out Assessment/Plan - Problem List (1) Diabetic foot infection Impression: Patient has improved with the swelling and redness since starting ertapenem on August 20. Before that he was on empiric antibx that started 08/09/22 and the bacteria were sens to those empiric antibx as well. Patient reports tolerating medication and reports decreased tenderness to left calf and denies edema of either leg. Patient was seen last in Wound Clinic on 08/26 and it was recommended that he now receive every other daily wound dressing changes, which the nurses are doing. Seen again in wound clinic 09/[address] Agosto prefers Zosyn. At our last conversation, he was going to check in w his ID colleagues but no discussion noted. Todays wound clinic notes: - Wound Assessment Wound #1 is a full-thickness diabetic foot ulcer of the left lateral foot at the level of the fifth metatarsal head. It measures 2.2 x 2.0 x 0.6 cm (L x W x D). There is extensive tunneling (7:00 with distance of 3.1 cm, 10:00 with distance 5.5 cm, and 11:00 with distance 3.5 cm). There is moderate yellow serous drainage noted which has no odor. The patient reports a wound pain level 0/10. The wound margin is unattached. The wound bed has no epithelialization, no eschar, yes slough, minimal spongy granulation. The periwound skin texture, moisture, temperature, and color are normal. Exposed structures: Fascia. Wound #2 is a full-thickness diabetic foot ulcer of the left plantar foot at the level of the fifth metatarsal head. It measures 2.2 x 1.9 x 0.2 cm (L x W x D). There is no undermining, tunneling, or sinus tracking. There is small amount of serous drainage noted which has no odor. The patient reports a wound pain level 0/10. The wound margin is callused and unattached. The wound bed has no epithelialization, no eschar, yes slough, and firm pink granulation. The periwound skin texture, moisture, temperature, and color are normal. Exposed structures: Adipose. Wound #3 is a full-thickness diabetic foot ulcer of the left lateral foot, proximal. It measures 1.1 x 1.4 x 0.3 cm (L x W x D). There is no undermining, tunneling, or sinus tracking. There is small amount of serous drainage noted which has no odor. The patient reports a wound pain level 0/10. The wound margin is unattached. The wound bed has no epithelialization, no eschar, yes slough, and spongy pink granulation. The periwound skin texture, moisture, temperature, and color are normal. Exposed structures: Adipose. Seen by Nicholas Farmer, on 09/01 as well. CRP is 3. Plan: Complete ertapenem antibiotic therapy, iv treatment for a total of 6 weeks (September 20) and continue on probiotics. Continue with QOD wound dressing changes. The exact orders of dressing changes was put in orders for nursing. Patient to remain non-weightbearing, except poss L heel, or a scooter would be optimum. It would be great if the pt could get a scooter while he is still here, to learn (from PT and OT) how to use it and start using it here, so he can be upright, and be walking and not just sitting. His brother Wai was informed of this by me, several days ago and is working on obtaining one that can hold a 345 lb pat ient. I will reach out to ID tomorrow. (2) Osteomyelitis As per imaging. Plan: Complete ertapenem antibiotic therapy. IV treatment for a total of 6 weeks is planned. This would be through 09/20/22. (3) Poorly controlled diabetes mellitus on admission and is now controlled. Impression: Patient glucose levels have improved since admission. Patient reports feeling well rested and satisfied with treatment and food from hospital. Patient reports a willingness to commit to lifestyle changes upon discharge from hospital. Plan Continue current insulin therapy, adjust dose when needed Continue on sliding scale before meals Continue on carb-controlled diet
[2022-09-03] MEDS: SODIUM CHLORIDE FLUSH 0.9% 10 ML SYRINGE IVP SCH ×4 (00:53→23:54)
[2022-09-03] MEDS: SODIUM CHLORIDE FLUSH 0.9% 10 ML SYRINGE IVP PRN ×2 (00:53→23:54)
[2022-09-03] MEDS: HYDROcod/ACETAM 5/325 MG TABLET PO PRN ×2 (00:53→20:06)
[2022-09-03] MEDS: PANTOPRAZOLE 40 MG TABLET PO SCH (06:05)
[2022-09-03] MEDS: INSULIN LISPRO 300 UNIT/3 ML PEN SUBQ SCH ×7 (08:50→20:53)
[2022-09-03] MEDS: INSULIN GLARGINE-YFGN 300 UNIT/3 ML PEN SUBQ SCH ×2 (08:50→21:20)
[2022-09-03] MEDS: ERTAPENEM 1 GM in SODIUM CHLORIDE 0.9% MINIBAG 100 ML IV SCH (08:50)
[2022-09-03] MEDS: hydroCHLOROthiazide 25 MG TABLET PO SCH (08:52)
[2022-09-03] MEDS: ASCORBIC ACID 500 MG TABLET PO SCH (08:52)
[2022-09-03] MEDS: MULTIVITAMIN W/MINERALS TABLET PO SCH (08:52)
[2022-09-03] MEDS: LOSARTAN 50 MG TABLET PO SCH ×2 (08:52→20:06)
[2022-09-03] MEDS: metFORMIN 500 MG TABLET PO SCH ×2 (08:53→17:19)
[2022-09-03] MEDS: FERROUS GLUCONATE 324 MG TABLET PO SCH (08:53)
[2022-09-03] MEDS: SACCHAROMYCES BOULARDII 250 MG CAPSULE PO SCH ×2 (08:53→17:19)
[2022-09-03] MEDS: ENOXAPARIN 40 MG/0.4 ML SYRINGE SUBQ SCH ×2 (08:54→20:07)
[2022-09-03] MEDS: METOPROLOL TARTRATE 25 MG TABLET PO SCH ×2 (08:55→20:06)
--- NOTE | 2022-09-03 11:35 | PROVIDER PROGRESS NOTE ---
Subjective - Prog Note Date Prog Note Date: 09/03/22 Prog Note Time: 11:19 - Subjective Pt reports feeling: Improved (Patient has a happy affect and is satisfied with the care he is recieving and the healing of his wound.) Subjective: Patient is a morbidly obese 42 year old male who has been in the clinic for close to 4 weeks. Patient is pleased with the progress of his wound healing. Patient has a pleasant affect and is mobile with his walker. Patients did complain of new rash, of which, started him on nystatin cream. Patient denies headache, visual changes, chest pain, and new edema. Patient is taking active steps to keep his wound clean and has talked with his relatives to make his living conditions more clean, when discharged. Current Medications - Current Medications Current Medications: Active Medications Acetaminophen (Acetaminophen 325 Mg Tablet) 650 mg PO Q4HR PRN PRN Reason: Pain 1 to 4, or Fever Last Admin: 08/23/22 05:15 Dose: 650 mg Hydrocodone Bitart/Acetaminophen (Hydrocod/Acetam 10 Mg/325 Mg Tablet) 1 tab PO Q4HR PRN PRN Reason: Pain 8 to 10 Last Admin: 08/19/22 11:45 Dose: 1 tab Hydrocodone Bitart/Acetaminophen (Hydrocod/Acetam 5/325 Mg Tablet) 1 tab PO Q4HR PRN PRN Reason: Pain 5 to 7 Last Admin: 09/03/22 00:53 Dose: 1 tab Ascorbic Acid (Ascorbic Acid 500 Mg Tablet) 500 mg PO DAILYWM [facility] Last Admin: 09/03/22 08:52 Dose: 500 mg Carboxymethylcellulose (Carboxymethylcellulose Ophth Drops) 1 drops EACHEYE PRN PRN PRN Reason: Dry Eye Last Admin: 08/22/22 17:05 Dose: 1 drops Enoxaparin Sodium (Enoxaparin 40 Mg/0.4 Ml Syringe) 40 mg SUBQ BID [facility] Last Admin: 09/03/22 08:54 Dose: 40 mg Ferrous Gluconate (Ferrous Gluconate 324 Mg Tablet) 324 mg PO DAILYWM [facility] Last Admin: 09/03/22 08:53 Dose: 324 mg Hydrochlorothiazide (Hydrochlorothiazide 25 Mg Tablet) 25 mg PO DAILY [facility] Last Admin: 09/03/22 08:52 Dose: 25 mg Ertapenem 1 gm/ Sodium (Chloride) 100 mls @ 200 mls/hr IV DAILY [facility] Last Admin: 09/03/22 08:50 Dose: 200 mls/hr Ibuprofen (Ibuprofen 400 Mg Tablet) 400 mg PO Q6HR PRN PRN Reason: PAIN Last Admin: 09/02/22 12:57 Dose: 400 mg Insulin Glargine-yfgn (Insulin Glargine-Yfgn 300 Unit/3 Ml Pen) 40 unit SUBQ DAILY [facility] Last Admin: 09/03/22 08:50 Dose: 40 unit Insulin Glargine-yfgn (Insulin Glargine-Yfgn 300 Unit/3 Ml Pen) 10 unit SUBQ QPM [facility] Last Admin: 09/02/22 21:01 Dose: 10 unit Insulin Human Lispro (Insulin Lispro 300 Unit/3 Ml Pen) 1 - 9 unit SUBQ 0800,1200,1700,2100 [facility]; Protocol Last Admin: 09/03/22 08:51 Dose: 1 unit Insulin Human Lispro (Insulin Lispro 300 Unit/3 Ml Pen) 8 unit SUBQ 1200,1700 [facility] Last Admin: 09/02/22 17:04 Dose: 8 unit Insulin Human Lispro (Insulin Lispro 300 Unit/3 Ml Pen) 10 unit SUBQ 0800 [facility] Last Admin: 09/03/22 08:50 Dose: 10 unit Loratadine (Loratadine 10 Mg Tablet) 10 mg PO DAILY PRN PRN Reason: ITCHING Last Admin: 09/01/22 05:56 Dose: 10 mg Losartan Potassium (Losartan 50 Mg Tablet) 50 mg PO BID [facility] Last Admin: 09/03/22 08:52 Dose: 50 mg Metformin HCl (Metformin 500 Mg Tablet) 1,000 mg PO BIDWM [facility] Last Admin: 09/03/22 08:53 Dose: 1,000 mg Metoclopramide HCl (Metoclopramide 10 Mg/2 Ml Vial) 5 mg IVP Q6HR PRN PRN Reason: NEEDED PER PROVIDER ORDERS Last Admin: 08/11/22 23:00 Dose: 5 mg Metoprolol Tartrate (Metoprolol Tartrate 25 Mg Tablet) 25 mg PO BID [facility] Last Admin: 09/03/22 08:55 Dose: 25 mg Multi-Ingred Cream/Lotion/Oil/Oint (Mineral Oil/Petrolat Ophth Oint) 1 applic EACHEYE QPM PRN PRN Reason: Dry Eye Last Admin: 08/23/22 20:49 Dose: 1 applic Multi-Ingredient Ointment (Zinc Oxide 20% Oint 30 Gm Tube) 1 applic TOP PRN PRN PRN Reason: Skin Care Last Admin: 08/13/22 18:46 Dose: 1 applic Multivitamins/Minerals (Multivitamin W/Minerals Tablet) 1 tab PO DAILYWM [facility] Last Admin: 09/03/22 08:52 Dose: 1 tab Ondansetron HCl (Ondansetron 4 Mg/2 Ml Vial) 4 mg IVP Q6HR PRN PRN Reason: Nausea / Vomiting Last Admin: 08/16/22 08:38 Dose: 4 mg Pantoprazole Sodium (Pantoprazole 40 Mg Tablet) 40 mg PO QDAC [facility] Last Admin: 09/03/22 06:05 Dose: 40 mg Systane Eye Drops 1 each EACHEYE PRN PRN PRN Reason: DRY EYE Last Admin: 09/02/22 12:54 Dose: 1 each Saccharomyces Boulardii (Saccharomyces Boulardii 250 Mg Capsule) 250 mg PO BIDWM [facility] Last Admin: 09/03/22 08:53 Dose: 250 mg Sodium Chloride (Sodium Chloride Flush 0.9% 10 Ml Syringe) 10 ml IVP PRN PRN PRN Reason: NEEDED PER PROVIDER ORDERS Last Admin: 09/03/22 00:53 Dose: 10 ml Sodium Chloride (Sodium Chloride Flush 0.9% 10 Ml Syringe) 10 ml IVP 0100,0900,1700 [facility] Last Admin: 09/03/22 08:56 Dose: 10 ml Sodium Chloride (Sodium Chloride Flush 0.9% 10 Ml Syringe) 20 ml IVP PRN PRN PRN Reason: After Blood Draw Last Admin: 08/30/22 05:40 Dose: 20 ml Throat Lozenges (Benzocaine/Menthol Lozenge) 1 lozenge MM Q2HR PRN PRN Reason: Throat pain Last Admin: 08/17/22 16:28 Dose: 1 lozenge Losartan [Cozaar] 50 mg PO BID 08/09/22 Omeprazole 40 mg PO DAILY 08/09/22 hydroCHLOROthiazide [Hydrodiuril] 25 mg PO DAILY 08/10/22 metFORMIN [Glucophage] 850 mg PO TIDWM 08/10/22 Objective - Vital Signs/Intake & Output Reviewed Vital Signs: Yes Vital Signs: Vital Signs x48h Temp Pulse Resp BP BP Pulse Ox 09/03/22 08:55 107/64 09/03/22 08:50 36.2 C L 70 20 107/64 97 Intake & Output: Intake & Output 08/31/22 09/01/22 09/02/22 09/03/22 23:59 23:59 23:59 23:59 Intake Total 1370 1520 2060 360 Balance 1370 1520 2060 360 - Objective General Appearance: positive: No acute distress, Alert Eyes Bilateral: positive: Normal inspection, PERRL, EOMI ENT: positive: ENT inspection nml, Pharynx nml, No signs of dehydration Neck: positive: Nml inspection, Thyroid nml, No JVD Respiratory: positive: Chest non-tender, No respiratory distress, Breath sounds nml Cardiovascular: positive: Regular rate & rhythm, No murmur, No gallop Abdomen: positive: Non-tender Back: positive: Nml inspection Skin: positive: Color nml, Warm Extremities: positive: Non-tender, Full ROM, Other (Chronic edema on legs 1+.) Neurologic/Psychiatric: positive: Oriented x3, CN's nml (2-12), Motor nml, Mood/affect nml - Lab Results Fish Bones: 08/30/22 05:45 08/30/22 05:45 Other Labs: Lab Results x24hrs 09/03/22 09/02/22 09/02/22 Range/Units 07:38 20:49 16:28 POC Whole Bld Glucose 161 H 94 92 (70 - 100) mg/dL 09/02/22 Range/Units 11:24 POC Whole Bld Glucose 127 H (70 - 100) mg/dL ABX Reporting Has patient been on IV antibiotics over the past 48 hours?: Yes Sepsis Event Note (H) - Evaluation Current Stage of Sepsis: Ruled out Assessment/Plan - Problem List (1) Chronic diabetic ulcer of left foot determined by examination Impression: Patient's wound has improved significantly since starting ertapeneum on August 20. Patient is receiving wound dressing changes every other day and received dressing changes yesterday. Patient is tolerating ertapeneum well with minimal symptoms. Patient was seen by wound care yesterday with those notes being on yesterdays progress notes. Plan Complete ertapeneum antibiotic therapy for a total of 6 weeks (September 20) Continue wound dressing changes every other day. Continue to encourage mobility as tolerated and remain non-weightbearing. If patient tolerates walking on left heel, use walker. (2) Osteomyelitis Impression: Patient is not showing signs of infection and wound is healing as it should. Diagnosis was made as per imaging. Plan Complete ertapeneum antibiotic therapy for a total of 6 weeks. (September 20) Qualifiers: Osteomyelitis type: other chronic Osteomyelitis location: foot Laterality: left Qualified Code(s): M86.672 - Other chronic osteomyelitis, left ankle and foot (3) Poorly controlled diabetes mellitus Impression: Patients glucose levels have improved significantly since admission. Patient states that he feels better than he did when he was at home. Patient states that he is committed to lifestyle changes upon admission. Plan Continue patient on insulin therapy, adjust dose as needed Continue on sliding scale before meals Continue on carb controlled meals.
[2022-09-03] MEDS: NYSTATIN CREAM 15 GM TUBE TOP SCH ×2 (14:52→20:07)
[2022-09-03] MEDS: IBUPROFEN 400 MG TABLET PO PRN (23:54)
[2022-09-04] MEDS: PANTOPRAZOLE 40 MG TABLET PO SCH (06:12)
[2022-09-04] MEDS: IBUPROFEN 400 MG TABLET PO PRN ×2 (06:17→11:57)
[2022-09-04] MEDS: NYSTATIN CREAM 15 GM TUBE TOP SCH ×2 (08:57→20:53)
[2022-09-04] MEDS: SYSTANE EYE DROPS EACHEYE PRN (08:58)
[2022-09-04] MEDS: ERTAPENEM 1 GM in SODIUM CHLORIDE 0.9% MINIBAG 100 ML IV SCH (08:58)
[2022-09-04] MEDS: INSULIN LISPRO 300 UNIT/3 ML PEN SUBQ SCH ×7 (08:59→20:53)
[2022-09-04] MEDS: INSULIN GLARGINE-YFGN 300 UNIT/3 ML PEN SUBQ SCH ×2 (08:59→20:52)
[2022-09-04] MEDS: ASCORBIC ACID 500 MG TABLET PO SCH (09:00)
[2022-09-04] MEDS: METOPROLOL TARTRATE 25 MG TABLET PO SCH ×2 (09:00→20:58)
[2022-09-04] MEDS: ENOXAPARIN 40 MG/0.4 ML SYRINGE SUBQ SCH ×2 (09:00→20:58)
[2022-09-04] MEDS: LOSARTAN 50 MG TABLET PO SCH ×2 (09:00→20:58)
[2022-09-04] MEDS: metFORMIN 500 MG TABLET PO SCH ×2 (09:00→16:55)
[2022-09-04] MEDS: hydroCHLOROthiazide 25 MG TABLET PO SCH (09:00)
[2022-09-04] MEDS: SACCHAROMYCES BOULARDII 250 MG CAPSULE PO SCH ×2 (09:01→16:55)
[2022-09-04] MEDS: MULTIVITAMIN W/MINERALS TABLET PO SCH (09:01)
[2022-09-04] MEDS: SODIUM CHLORIDE FLUSH 0.9% 10 ML SYRINGE IVP SCH ×2 (09:01→16:56)
[2022-09-04] MEDS: FERROUS GLUCONATE 324 MG TABLET PO SCH (09:01)
--- NOTE | 2022-09-04 11:27 | PROVIDER PROGRESS NOTE ---
Subjective - Prog Note Date Prog Note Date: 09/04/22 Prog Note Time: 11:22 - Subjective Pt reports feeling: Improved (Patient has a pleasant affect and wound has improved as projected. No signs of infection.) Subjective: Patient is a morbidly obese 42 year old male who is completing 6 week IV ertapenum treatment for diabetic foot ulcer, which was cleaned and had dressing changed during visit. Patient reports tolerating medication well . Patient is trying to be more active during his stay and has been mobile around his room w ith his walker and uses wheelchair to get around the hospital. Patient brother is looking to get him a scooter that is able to tolerate his weight. Patient did complain yesterday about a possible rash, that his since improved with nystatin cream that is applied by patient twice a day. Patient denies headache, visual changes, chest pain, shortness of breath, edema, and fatigue. Patient is taking active steps to ensure a clean living environment and eating healthier once discharged. Current Medications - Current Medications Current Medications: Active Medications Acetaminophen (Acetaminophen 325 Mg Tablet) 650 mg PO Q4HR PRN PRN Reason: Pain 1 to 4, or Fever Last Admin: 08/23/22 05:15 Dose: 650 mg Hydrocodone Bitart/Acetaminophen (Hydrocod/Acetam 10 Mg/325 Mg Tablet) 1 tab PO Q4HR PRN PRN Reason: Pain 8 to 10 Last Admin: 08/19/22 11:45 Dose: 1 tab Hydrocodone Bitart/Acetaminophen (Hydrocod/Acetam 5/325 Mg Tablet) 1 tab PO Q4HR PRN PRN Reason: Pain 5 to 7 Last Admin: 09/03/22 20:06 Dose: 1 tab Ascorbic Acid (Ascorbic Acid 500 Mg Tablet) [facility] [place] Admin: 09/04/22 09:00 Dose: 500 mg Carboxymethylcellulose (Carboxymethylcellulose Ophth Drops) 1 drops EACHEYE PRN PRN PRN Reason: Dry Eye Last Admin: 08/22/22 17:05 Dose: 1 drops Enoxaparin Sodium (Enoxaparin 40 Mg/0.4 Ml Syringe) 40 mg SUBQ BID [facility] Last Admin: 09/04/22 09:00 Dose: 40 mg Ferrous Gluconate (Ferrous Gluconate 324 Mg Tablet) 324 [facility] [place] Admin: 03/02/23 09:01 Dose: 324 mg Hydrochlorothiazide (Hydrochlorothiazide 25 Mg Tablet) 25 mg PO DAILY [facility] Last Admin: 09/04/22 09:00 Dose: 25 mg Ertapenem 1 gm/ Sodium (Chloride) 100 mls @ 200 mls/hr IV DAILY [facility] Last Admin: 09/04/22 08:58 Dose: 200 mls/hr Ibuprofen (Ibuprofen 400 Mg Tablet) 400 mg PO Q6HR PRN PRN Reason: PAIN Last Admin: 09/04/22 06:17 Dose: 400 mg Insulin Glargine-yfgn (Insulin Glargine-Yfgn 300 Unit/3 Ml Pen) 40 unit SUBQ DAILY [facility] Last Admin: 09/04/22 08:59 Dose: 40 unit Insulin Glargine-yfgn (Insulin Glargine-Yfgn 300 Unit/3 Ml Pen) 10 unit SUBQ QPM [facility] Last Admin: 09/03/22 21:20 Dose: 10 unit Insulin Human Lispro (Insulin Lispro 300 Unit/3 Ml Pen) 1 - 9 unit SUBQ 0800,1200,1700,2100 [facility]; Protocol Last Admin: 09/04/22 08:59 Dose: 1 unit Insulin Human Lispro (Insulin Lispro 300 Unit/3 Ml Pen) 8 unit SUBQ 1200,1700 [facility] Last Admin: 09/03/22 17:20 Dose: 8 unit Insulin Human Lispro (Insulin Lispro 300 Unit/3 Ml Pen) 10 unit SUBQ 0800 [facility] Last Admin: 09/04/22 08:59 Dose: 10 unit Loratadine (Loratadine 10 Mg Tablet) 10 mg PO DAILY PRN PRN Reason: ITCHING Last Admin: 09/01/22 05:56 Dose: 10 mg Losartan Potassium (Losartan 50 Mg Tablet) 50 mg PO BID [facility] Last Admin: 09/04/22 09:00 Dose: 50 mg Metformin HCl (Metformin 500 Mg Tablet) 1,000 mg PO BIDWM [facility] Last Admin: 09/04/22 09:00 Dose: 1,000 mg Metoclopramide HCl (Metoclopramide 10 Mg/2 Ml Vial) 5 mg IVP Q6HR PRN PRN Reason: NEEDED PER PROVIDER ORDERS Last Admin: 08/11/22 23:00 Dose: 5 mg Metoprolol Tartrate (Metoprolol Tartrate 25 Mg Tablet) 25 mg PO BID [facility] Last Admin: 09/04/22 09:00 Dose: 25 mg Multi-Ingred Cream/Lotion/Oil/Oint (Mineral Oil/Petrolat Ophth Oint) 1 applic EACHEYE QPM PRN PRN Reason: Dry Eye Last Admin: 08/23/22 20:49 Dose: 1 applic Multi-Ingredient Ointment (Zinc Oxide 20% Oint 30 Gm Tube) 1 applic TOP PRN PRN PRN Reason: Skin Care Last Admin: 08/13/22 18:46 Dose: 1 applic Multivitamins/Minerals (Multivitamin W/Minerals Tablet) 1 tab PO DAILYWM [facility] Last Admin: 09/04/22 09:01 Dose: 1 tab Nystatin (Nystatin Cream 15 Gm Tube) 1 applic TOP BID [facility] Last Admin: 09/04/22 08:57 Dose: 1 applic Ondansetron HCl (Ondansetron 4 Mg/2 Ml Vial) 4 mg IVP Q6HR PRN PRN Reason: Nausea / Vomiting Last Admin: 08/16/22 08:38 Dose: 4 mg Pantoprazole Sodium (Pantoprazole 40 Mg Tablet) 40 mg PO QDAC [facility] Last Admin: 09/04/22 06:12 Dose: 40 mg Systane Eye Drops 1 each EACHEYE PRN PRN PRN Reason: DRY EYE Last Admin: 09/04/22 08:58 Dose: 1 each Saccharomyces Boulardii (Saccharomyces Boulardii 250 Mg Capsule) 250 mg PO BIDWM [facility] Last Admin: 09/04/22 09:01 Dose: 250 mg Sodium Chloride (Sodium Chloride Flush 0.9% 10 Ml Syringe) 10 ml IVP PRN PRN PRN Reason: NEEDED PER PROVIDER ORDERS Last Admin: 09/03/22 23:54 Dose: 10 ml Sodium Chloride (Sodium Chloride Flush 0.9% 10 Ml Syringe) 10 ml IVP 010 0,0900,1700 [facility] Last Admin: 09/04/22 09:01 Dose: 10 ml Sodium Chloride (Sodium Chloride Flush 0.9% 10 Ml Syringe) 20 ml IVP PRN PRN PRN Reason: After Blood Draw Last Admin: 08/30/22 05:40 Dose: 20 ml Throat Lozenges (Benzocaine/Menthol Lozenge) 1 lozenge MM Q2HR PRN PRN Reason: Throat pain Last Admin: 08/17/22 16:28 Dose: 1 lozenge Losartan [Cozaar] 50 mg PO BID 08/09/22 Omeprazole 40 mg PO DAILY 08/09/22 hydroCHLOROthiazide [Hydrodiuril] 25 mg PO DAILY 08/10/22 metFORMIN [Glucophage] 850 mg PO TIDWM 08/10/22 Objective - Vital Signs/Intake & Output Reviewed Vital Signs: Yes Vital Signs: Vital Signs x48h Temp Pulse Resp BP BP Pulse Ox 09/04/22 09:00 126/56 L 09/04/22 07:46 36.5 C 77 18 126/56 L 99 Intake & Output: Intake & Output 09/01/22 09/02/22 09/03/22 09/04/22 23:59 23:59 23:59 23:59 Intake Total 1520 2060 1630 950 Balance 1520 2060 1630 950 - Objective General Appearance: positive: No acute distress, Alert Eyes Bilateral: positive: Normal inspection, PERRL, EOMI ENT: positive: ENT inspection nml, Pharynx nml Neck: positive: Nml inspection, Thyroid nml, No JVD Respiratory: positive: Chest non-tender, No respiratory distress, Breath sounds nml Cardiovascular: positive: Regular rate & rhythm, No murmur, No gallop Abdomen: positive: Non-tender Back: positive: Nml inspection Skin: positive: Color nml, No rash, Warm Extremities: positive: Non-tender, Full ROM, Other (Diabetic foot ulcer on left foot. No sign of infection.) Neurologic/Psychiatric: positive: Oriented x3, CN's nml (2-12), Motor nml, Sensa tion nml, Mood/affect nml - Lab Results Fish Bones: 08/30/22 05:45 08/30/22 05:45 Other Labs: Lab Results x24hrs 09/04/22 09/04/22 09/03/22 Range/Units 11:14 07:41 20:37 POC Whole Bld Glucose 163 H 144 H 139 H (70 - 100) mg/dL 09/03/22 09/03/22 Range/Units 16:39 11:37 POC Whole Bld Glucose 158 H 151 H (70 - 100) mg/dL ABX Reporting Has patient been on IV antibiotics over the past 48 hours?: Yes Sepsis Event Note (H) - Evaluation Current Stage of Sepsis: Ruled out Assessment/Plan - Problem List (1) Chronic diabetic ulcer of left foot determined by examination Impression: Patients wound continues to improve. There is no sign of infection and dressing was changed today. Patient is tolerating ertapenum well and does not complain of any hives or pruritis. Plan Complete ertapeneum therapy for a total of 6 weeks (September 20) Continue wound dressing changes every other day. Continue to encourage mobility as tolerated and remain non-weightbearing. If patient tolerates walking on left heel, use walker. (2) Osteomyelitis Impression: Patient is not showing any signs of foot infection and wound is healing as it should. Diagnosis was made per imaging. Plan Complete ertapeneum antibiotic therapy for a total of 6 weeks (September 20) Qualifiers: Osteomyelitis type: other chronic Osteomyelitis location: foot Laterality: left Qualified Code(s): M86.672 - Other chronic osteomyelitis, left ankle and foot (3) Poorly controlled diabetes mellitus Impression: Patients glucose levels have improved since admission. Patient is feeling better with controlled diet and states that he is committed to a healthy lifestyle upon discharge. Plan Continue patient on insulin therapy, adjust dose as needed Continue patient on sliding scale before meals Continue on carb controlled meals.
[2022-09-05] MEDS: SODIUM CHLORIDE FLUSH 0.9% 10 ML SYRINGE IVP SCH ×3 (01:00→17:00)
[2022-09-05] MEDS: SODIUM CHLORIDE FLUSH 0.9% 10 ML SYRINGE IVP PRN (06:28)
[2022-09-05] MEDS: PANTOPRAZOLE 40 MG TABLET PO SCH (06:28)
[2022-09-05 06:38] LABS: BASOPHILS % (AUTO) 0.3 %; EOSINOPHILS # (AUTO) 0.3 10^3/uL (0.0-0.7); EOSINOPHILS % (AUTO) 3.4 %; HCT - HEMATOCRIT 33.1 % (42.0-52.0); HGB - HEMOGLOBIN 10.2 g/dL (14.0-18.0); LYMPHOCYTES # (AUTO) 1.7 10^3/uL (1.5-3.5); LYMPHOCYTES % (AUTO) 22.4 %; MEAN CORPUSCULAR HEMOGLOBIN 25.1 pg (27.0-31.0); MEAN CORPUSCULAR HGB CONC 30.8 g/dL (32.0-36.0); MEAN CORPUSCULAR VOLUME 81.5 fL (80.0-94.0); MEAN PLATELET VOLUME 9.3 fL (7.4-11.4); MONOCYTES # (AUTO) 0.6 10^3/uL (0.0-1.0); MONOCYTES % (AUTO) 7.1 %; NEUTROPHILS # (AUTO) 5.1 10^3/uL (1.5-6.6); NEUTROPHILS % (AUTO) 66.4 %; PLT - PLATELET COUNT 331 10^3/uL (130-450); RED BLOOD COUNT 4.06 10^6/uL (4.70-6.10); RED CELL DISTRIBUTION WIDTH 13.9 % (12.0-15.0); WHITE BLOOD COUNT 7.7 x10^3/uL (4.8-10.8)
[2022-09-05 06:52] LABS: CREATININE 0.8 mg/dL (0.6-1.2)
[2022-09-05 06:55] LABS: CALCIUM 8.7 mg/dL (8.5-10.3); POTASSIUM 4.1 mmol/L (3.5-5.0)
[2022-09-05] MEDS: MULTIVITAMIN W/MINERALS TABLET PO SCH (07:59)
[2022-09-05] MEDS: metFORMIN 500 MG TABLET PO SCH ×2 (07:59→17:00)
[2022-09-05] MEDS: SACCHAROMYCES BOULARDII 250 MG CAPSULE PO SCH ×2 (07:59→17:00)
[2022-09-05] MEDS: hydroCHLOROthiazide 25 MG TABLET PO SCH (08:00)
[2022-09-05] MEDS: LOSARTAN 50 MG TABLET PO SCH ×2 (08:00→21:01)
[2022-09-05] MEDS: ENOXAPARIN 40 MG/0.4 ML SYRINGE SUBQ SCH ×2 (08:00→21:02)
[2022-09-05] MEDS: FERROUS GLUCONATE 324 MG TABLET PO SCH (08:00)
[2022-09-05] MEDS: ASCORBIC ACID 500 MG TABLET PO SCH (08:00)
[2022-09-05] MEDS: METOPROLOL TARTRATE 25 MG TABLET PO SCH ×2 (08:00→21:01)
[2022-09-05] MEDS: INSULIN LISPRO 300 UNIT/3 ML PEN SUBQ SCH ×7 (08:01→21:01)
[2022-09-05] MEDS: INSULIN GLARGINE-YFGN 300 UNIT/3 ML PEN SUBQ SCH ×2 (08:05→21:01)
[2022-09-05] MEDS: NYSTATIN CREAM 15 GM TUBE TOP SCH ×2 (08:05→21:04)
[2022-09-05] MEDS: ERTAPENEM 1 GM in SODIUM CHLORIDE 0.9% MINIBAG 100 ML IV SCH (09:47)
[2022-09-05] MEDS: SYSTANE EYE DROPS EACHEYE PRN (11:37)
--- NOTE | 2022-09-05 11:49 | PROVIDER PROGRESS NOTE ---
Subjective - General Admit Date: 08/09/22 Procedure Performed: No surgery performed - Review of Systems General: positive: No symptoms - Other Other Information/Narrative: He is pleasant, up sitting in a chair. He denies any pain or problems with his left foot.The bandages are removed from the left foot. There is mild serous drainage present within the dressings. There is no sign of any active infection. All 3 ulcerations about the left foot are clean, granulating. The largest of the 3 ulcerations now has minimal undermining. The surrounding skin to the ulcers are intact. There is mild foot swelling, left foot. Objective - Patient Data Vital Signs: Vital Signs x48h Temp Pulse Resp BP BP Pulse Ox 09/05/22 08:00 118/67 09/05/22 07:19 36.4 C L 68 16 118/67 100 Weight: Weight 09/03/22 09/04/22 09/05/22 23:59 23:59 23:59 Weight (kg) 146 kg 145 kg 145.5 kg Intake & Output: Intake and Output Totals x24h 09/03/22 09/04/22 09/05/22 23:59 23:59 23:59 Intake Total 1630 1570 523.333 Balance 1630 1570 523.333 - Lab Results Lab Results: 09/05/22 06:23 09/05/22 06:23 Other Lab Results: Lab Results x24hrs 09/05/22 09/05/22 09/05/22 Range/Units 11:14 07:14 06:23 WBC (4.8-10.8) x10^3/uL RBC (4.70-6.10) 10^6/uL Hgb (14.0-18.0) g/dL Hct (42.0-52.0) % MCV (80.0-94.0) fL MCH (27.0-31.0) pg MCHC (32.0-36.0) g/dL RDW (12.0-15.0) % Plt Count (130-450) 10^3/uL MPV (7.4-11.4) fL Neut # (Auto) (1.5-6.6) 10^3/uL Lymph # (Auto) (1.5-3.5) 10^3/uL [place] # (Auto) (0.0-1.0) 10^3/uL Eos # (Auto) (0.0-0.7) 10^3/uL Baso # (Auto) (0.0-0.1) 10^3/uL Absolute Nucleated RBC x10^3/uL Nucleated RBC % /100WBC Sodium 139 (135-145) mmol/L Potassium 4.1 (3.5-5.0) mmol/L Chloride 105 (101-111) mmol/L Carbon Dioxide 26 (21-32) mmol/L Anion Gap 8.0 (6-13) BUN 32 H (6-20) mg/dL Creatinine 0.8 (0.6-1.2) mg/dL Estimated GFR (MDRD) 107 (>89) Glucose 148 H (70-100) mg/dL POC Whole Bld Glucose 190 H 132 H (70 - 100) mg/dL Calcium 8.7 (8.5-10.3) mg/dL 09/05/22 09/04/22 09/04/22 Range/Units 06:23 20:08 16:25 WBC 7.7 (4.8-10.8) x10^3/uL RBC 4.06 L (4.70-6.10) 10^6/uL Hgb 10.2 L (14.0-18.0) g/dL Hct 33.1 L (42.0-52.0) % MCV 81.5 (80.0-94.0) fL MCH 25.1 L (27.0-31.0) pg MCHC 30.8 L (32.0-36.0) g/dL RDW 13.9 (12.0-15.0) % Plt Count 331 (130-450) 10^3/uL MPV 9.3 (7.4-11.4) fL Neut # (Auto) 5.1 (1.5-6.6) 10^3/uL Lymph # (Auto) 1.7 (1.5-3.5) 10^3/uL [place] # (Auto) 0.6 (0.0-1.0) 10^3/uL Eos # (Auto) 0.3 (0.0-0.7) 10^3/uL Baso # (Auto) 0.0 (0.0-0.1) 10^3/uL Absolute Nucleated RBC 0.00 x10^3/uL Nucleated RBC % 0.0 /100WBC Sodium (135-145) mmol/L Potassium (3.5-5.0) mmol/L Chloride (101-111) mmol/L Carbon Dioxide (21-32) mmol/L Anion Gap (6-13) BUN (6-20) mg/dL Creatinine (0.6-1.2) mg/dL Estimated GFR (MDRD) (>89) Glucose (70-100) mg/dL POC Whole Bld Glucose 159 H 100 (70 - 100) mg/dL Calcium (8.5-10.3) mg/dL - Current Medications Current Medications: Current Medications Generic Name Dose Route Start Last Admin Trade Name Freq PRN Reason Stop Dose Admin Acetaminophen 650 mg 08/09/22 21:56 08/23/22 05:15 Acetaminophen 325 Mg Tablet PO 650 mg Q4HR PRN Administration Pain 1 to 4, or Fever Hydrocodone Bitart/Acetaminophen 1 tab 08/09/22 21:56 08/19/22 11:45 Hydrocod/Acetam 10 Mg/325 Mg Tablet PO 1 tab Q4HR PRN Administration Pain 8 to 10 Hydrocodone Bitart/Acetaminophen 1 tab 08/09/22 21:56 09/03/22 20:06 Hydrocod/Acetam 5/325 Mg Tablet PO 1 tab Q4HR PRN Administration Pain 5 to 7 Ascorbic Acid 500 mg 08/24/22 08:00 09/05/22 08:00 Ascorbic Acid 500 Mg Tablet PO 500 mg DAILYWM [facility] Administration Carboxymethylcellulose 1 drops 08/10/22 01:01 08/22/22 17:05 Carboxymethylcellulose Ophth Drops EACHEYE 1 drops PRN PRN Administration Dry Eye Enoxaparin Sodium 40 mg 08/22/22 09:00 09/05/22 08:00 Enoxaparin 40 Mg/0.4 Ml Syringe SUBQ 40 mg BID [facility] Administration Ferrous Gluconate 324 mg 08/24/22 08:00 09/05/22 08:00 Ferrous Gluconate 324 Mg Tablet PO 324 mg DAILYWM [facility] Administration Hydrochlorothiazide 25 mg 08/17/22 09:00 09/05/22 08:00 Hydrochlorothiazide 25 Mg Tablet PO 25 mg DAILY [facility] Administration Ertapenem 1 gm/ Sodium 100 mls @ 200 mls/hr 08/20/22 12:00 09/05/22 10:00 Chloride IV 0 mls/hr DAILY [facility] Infusion Ibuprofen 400 mg 08/23/22 14:27 09/04/22 11:57 Ibuprofen 400 Mg Tablet PO 400 mg Q6HR PRN Administration PAIN Insulin Glargine-yfgn 40 unit 08/23/22 09:00 09/05/22 08:05 Insulin Glargine-Yfgn 300 Unit/3 Ml Pen SUBQ 40 unit DAILY [facility] Administration Insulin Glargine-yfgn 10 unit 08/28/22 21:00 09/04/22 20:52 Insulin Glargine-Yfgn 300 Unit/3 Ml Pen SUBQ 10 unit QPM [facility] Administration Insulin Human Lispro 1 - 9 unit 08/22/22 17:00 09/05/22 08:01 Insulin Lispro 300 Unit/3 Ml Pen SUBQ Not Given 0800,1200,1700,2100 [facility] Protocol Insulin Human Lispro 8 unit 08/28/22 12:00 09/04/22 17:40 Insulin Lispro 300 Unit/3 Ml Pen SUBQ Not Given 1200,1700 [facility] Insulin Human Lispro 10 unit 08/29/22 08:00 09/05/22 08:05 Insulin Lispro 300 Unit/3 Ml Pen SUBQ 10 unit 0800 [facility] Administration Loratadine 10 mg 08/31/22 07:44 09/01/22 05:56 Loratadine 10 Mg Tablet PO 10 mg DAILY PRN Administration ITCHING Losartan Potassium 50 mg 08/10/22 09:00 09/05/22 08:00 Losartan 50 Mg Tablet PO 50 mg BID [facility] Administration Metformin HCl 1,000 mg 08/18/22 17:00 09/05/22 07:59 Metformin 500 Mg Tablet PO 1,000 mg BIDWM [facility] Administration Metoclopramide HCl 5 mg 08/11/22 22:37 08/11/22 23:00 Metoclopramide 10 Mg/2 Ml Vial IVP 5 mg Q6HR PRN Administration NEEDED PER PROVIDER ORDERS Metoprolol Tartrate 25 mg 08/10/22 09:00 09/05/22 08:00 Metoprolol Tartrate 25 Mg Tablet PO 25 mg BID [facility] Administration Multi-Ingred Cream/Lotion/Oil/Oint 1 applic 08/22/22 15:55 08/23/22 20:49 Mineral Oil/Petrolat Ophth Oint EACHEYE 1 applic QPM PRN Administration Dry Eye Multi-Ingredient Ointment 1 applic 08/13/22 18:12 08/13/22 18:46 Zinc Oxide 20% Oint 30 Gm Tube TOP 1 applic PRN PRN Administration Skin Care Multivitamins/Minerals 1 tab 08/15/22 09:00 09/05/22 07:59 Multivitamin W/Minerals Tablet PO 1 tab DAILYWM [facility] Administration Nystatin 1 applic 09/03/22 13:00 09/05/22 08:05 Nystatin Cream 15 Gm Tube TOP 1 applic BID [facility] Administration Ondansetron HCl 4 mg 08/09/22 21:56 08/16/22 08:38 Ondansetron 4 Mg/2 Ml Vial IVP 4 mg Q6HR PRN Administration Nausea / Vomiting Pantoprazole Sodium 40 mg 08/10/22 07:00 09/05/22 06:28 Pantoprazole 40 Mg Tablet PO 40 mg QDAC [facility] Administration Systane Eye Drops 1 each 08/24/22 16:00 09/04/22 08:58 EACHEYE 1 each PRN PRN Administration DRY EYE Saccharomyces Boulardii 250 mg 08/17/22 17:00 09/05/22 07:59 Saccharomyces Boulardii 250 Mg Capsule PO 250 mg BIDWM [facility] Administration Sodium Chloride 10 ml 08/09/22 21:56 09/05/22 06:28 Sodium Chloride Flush 0.9% 10 Ml Syringe IVP 30 ml PRN PRN Administration NEEDED PER PROVIDER ORDERS Sodium Chloride 10 ml 08/10/22 01:00 09/05/22 08:06 Sodium Chloride Flush 0.9% 10 Ml Syringe IVP 10 ml 0100,0900,1700 [facility] Administration Sodium Chloride 20 ml 08/25/22 03:57 08/30/22 05:40 Sodium Chloride Flush 0.9% 10 Ml Syringe IVP 20 ml PRN PRN Administration After Blood Draw Throat Lozenges 1 lozenge 08/10/22 01:01 08/17/22 16:28 Benzocaine/Menthol Lozenge MM 1 lozenge Q2HR PRN Administration Throat pain Impression/Plan - Problem List Problem List: 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 He still receiving local wound care and intravenous antibiotics. He should remain nonweightbearing on the left foot, continue elevation of left foot, intravenous antibiotics with plan to convert to oral antibiotics.He may be a candidate for a total contact diabetic cast in the future
--- NOTE | 2022-09-05 16:11 | PROVIDER PROGRESS NOTE ---
Subjective - Prog Note Date Prog Note Date: 09/05/22 Prog Note Time: 16:06 - Subjective Pt reports feeling: Improved (Patients wound is healing as it should and patient is satisfied with treatment at hospital) Subjective: Patient is a morbidly obese 42 year old man who is completing 6 week IV ertapeneum treatment for infected diabetic foot ulcer, which the patient is tolerating well. checked foot ulcer and is pleased with the progress patient has made, as well as, changed patients dressing. The tunneling on foot seen at the start of admission, appears to have resolved and no new sign of infection were seen on exam. Patient is enthusiastic about becoming more active and states commitment to lifestyle changes. Patient is still waiting on brother to find scooter able to bear his weight. Patient denies headache, fatigue, visual changes, chest pain, shortness of breath, abdominal pain, and edema. Patient did complain of a rash on groin area a couple of days ago and was given nystatin topical cream to alleviate symptoms. This treatment appears to have work and patient is no longer complaining of itchiness and discomfort in area. Current Medications - Current Medications Current Medications: Active Medications Acetaminophen (Acetaminophen 325 Mg Tablet) 650 mg PO Q4HR PRN PRN Reason: Pain 1 to 4, or Fever Last Admin: 08/23/22 05:15 Dose: 650 mg Hydrocodone Bitart/Acetaminophen (Hydrocod/Acetam 10 Mg/325 Mg Tablet) 1 tab PO Q4HR PRN PRN Reason: Pain 8 to 10 Last Admin: 08/19/22 11:45 Dose: 1 tab Hydrocodone Bitart/Acetaminophen (Hydrocod/Acetam 5/325 Mg Tablet) 1 tab PO Q4HR PRN PRN Reason: Pain 5 to 7 Last Admin: 09/03/22 20:06 Dose: 1 tab Ascorbic Acid (Ascorbic Acid 500 Mg Tablet) 500 mg PO DAILYWM [facility] Last Admin: 09/05/22 08:00 Dose: 500 mg Carboxymethylcellulose (Carboxymethylcellulose Ophth Drops) 1 drops EACHEYE PRN PRN PRN Reason: Dry Eye Last Admin: 08/22/22 17:05 Dose: 1 drops Enoxaparin Sodium (Enoxaparin 40 Mg/0.4 Ml Syringe) 40 mg SUBQ BID [facility] Last Admin: 09/05/22 08:00 Dose: 40 mg Ferrous Gluconate (Ferrous Gluconate 324 Mg Tablet) 324 mg PO DAILYWM [facility] Last Admin: 09/05/22 08:00 Dose: 324 mg Hydrochlorothiazide (Hydrochlorothiazide 25 Mg Tablet) 25 mg PO DAILY [facility] Last Admin: 09/05/22 08:00 Dose: 25 mg Ertapenem 1 gm/ Sodium (Chloride) 100 mls @ 200 mls/hr IV DAILY [facility] Last Infusion: 09/05/22 10:00 Dose: 0 mls/hr Ibuprofen (Ibuprofen 400 Mg Tablet) 400 mg PO Q6HR PRN PRN Reason: PAIN Last Admin: 09/04/22 11:57 Dose: 400 mg Insulin Glargine-yfgn (Insulin Glargine-Yfgn 300 Unit/3 Ml Pen) 40 unit SUBQ DAILY [facility] Last Admin: 09/05/22 08:05 Dose: 40 unit Insulin Glargine-yfgn (Insulin Glargine-Yfgn 300 Unit/3 Ml Pen) 10 unit SUBQ QPM [facility] Last Admin: 09/04/22 20:52 Dose: 10 unit Insulin Human Lispro (Insulin Lispro 300 Unit/3 Ml Pen) 1 - 9 unit SUBQ 0800,1200,1700,2100 [facility]; Protocol Last Admin: 09/05/22 11:34 Dose: 3 unit Insulin Human Lispro (Insulin Lispro 300 Unit/3 Ml Pen) 8 unit SUBQ 1200,1700 [facility] Last Admin: 09/05/22 11:35 Dose: 8 unit Insulin Human Lispro (Insulin Lispro 300 Unit/3 Ml Pen) 10 unit SUBQ 0800 [facility] Last Admin: 09/05/22 08:05 Dose: 10 unit Loratadine (Loratadine 10 Mg Tablet) 10 mg PO DAILY PRN PRN Reason: ITCHING Last Admin: 09/01/22 05:56 Dose: 10 mg Losartan Potassium (Losartan 50 Mg Tablet) 50 mg PO BID [facility] Last Admin: 09/05/22 08:00 Dose: 50 mg Metformin HCl (Metformin 500 Mg Tablet) 1,000 mg PO BIDWM [facility] Last Admin: 09/05/22 07:59 Dose: 1,000 mg Metoclopramide HCl (Metoclopramide 10 Mg/2 Ml Vial) 5 mg IVP Q6HR PRN PRN Reason: NEEDED PER PROVIDER ORDERS Last Admin: 08/11/22 23:00 Dose: 5 mg Metoprolol Tartrate (Metoprolol Tartrate 25 Mg Tablet) 25 mg PO BID [facility] Last Admin: 09/05/22 08:00 Dose: 25 mg Multi-Ingred Cream/Lotion/Oil/Oint (Mineral Oil/Petrolat Ophth Oint) 1 applic EACHEYE QPM PRN PRN Reason: Dry Eye Last Admin: 08/23/22 20:49 Dose: 1 applic Multi-Ingredient Ointment (Zinc Oxide 20% Oint 30 Gm Tube) 1 applic TOP PRN PRN PRN Reason: Skin Care Last Admin: 08/13/22 18:46 Dose: 1 applic Multivitamins/Minerals (Multivitamin W/Minerals Tablet) 1 tab PO DAILYWM [facility] Last Admin: 09/05/22 07:59 Dose: 1 tab Nystatin (Nystatin Cream 15 Gm Tube) 1 applic TOP BID [facility] Last Admin: 09/05/22 08:05 Dose: 1 applic Ondansetron HCl (Ondansetron 4 Mg/2 Ml Vial) 4 mg IVP Q6HR PRN PRN Reason: Nausea / Vomiting Last Admin: 08/16/22 08:38 Dose: 4 mg Pantoprazole Sodium (Pantoprazole 40 Mg Tablet) 40 mg PO QDAC [facility] Last Admin: 09/05/22 06:28 Dose: 40 mg Systane Eye Drops 1 each EACHEYE PRN PRN PRN Reason: DRY EYE Last Admin: 09/05/22 11:37 Dose: 1 each Saccharomyces Boulardii (Saccharomyces Boulardii 250 Mg Capsule) 250 mg PO BIDWM [facility] Last Admin: 09/05/22 07:59 Dose: 250 mg Sodium Chloride (Sodium Chloride Flush 0.9% 10 Ml Syringe) 10 ml IVP PRN PRN PRN Reason: NEEDED PER PROVIDER ORDERS Last Admin: 09/05/22 06:28 Dose: 30 ml Sodium Chloride (Sodium Chloride Flush 0.9% 10 Ml Syringe) 10 ml IVP 0100,0900,1700 [facility] Last Admin: 09/05/22 08:06 Dose: 10 ml Sodium Chloride (Sodium Chloride Flush 0.9% 10 Ml Syringe) 20 ml IVP PRN PRN PRN Reason: After Blood Draw Last Admin: 08/30/22 05:40 Dose: 20 ml Throat Lozenges (Benzocaine/Menthol Lozenge) 1 lozenge MM Q2HR PRN PRN Reason: Throat pain Last Admin: 08/17/22 16:28 Dose: 1 lozenge Losartan [Cozaar] 50 mg PO BID 08/09/22 Omeprazole 40 mg PO DAILY 08/09/22 hydroCHLOROthiazide [Hydrodiuril] 25 mg PO DAILY 08/10/22 metFORMIN [Glucophage] 850 mg PO TIDWM 08/10/22 Objective - Vital Signs/Intake & Output Reviewed Vital Signs: Yes Vital Signs: Vital Signs x48h Temp Pulse Resp BP Pulse Ox 09/05/22 15:49 36.8 C 76 16 137/69 H 100 Intake & Output: Intake & Output 09/02/22 09/03/22 09/04/22 09/05/22 23:59 23:59 23:59 23:59 Intake Total 2059 1630 1570 1003.333 Balance 2059 1630 1570 1003.333 - Objective General Appearance: positive: No acute distress, Alert Eyes Bilateral: positive: Normal inspection, PERRL, EOMI ENT: positive: ENT inspection nml, Pharynx nml, No signs of dehydration Neck: positive: Nml inspection, Thyroid nml, No JVD, Trachea midline Respiratory: positive: Chest non-tender, No respiratory distress, Breath sounds nml Cardiovascular: positive: Regular rate & rhythm, No murmur, No gallop Abdomen: positive: Non-tender, No organomegaly, Nml bowel sounds, No distention Back: positive: Nml inspection Skin: positive: Color nml, No rash, Warm Extremities: positive: No pedal edema, Other (Diabetic foot ulcer on left foot. Treated with erapaneum for 6 weeks.) Neurologic/Psychiatric: positive: Oriented x3, CN's nml (2-12), Motor nml, Sensation nml, Mood/affect nml - Lab Results Fish Bones: 09/05/22 06:23 09/05/22 06:23 Other Labs: Lab Results x24hrs 09/05/22 09/05/22 09/05/22 Range/Units 11:14 07:14 06:23 WBC (4.8-10.8) x10^3/uL RBC (4.70-6.10) 10^6/uL Hgb (14.0-18.0) g/dL Hct (42.0-52.0) % MCV (80.0-94.0) fL MCH (27.0-31.0) pg MCHC (32.0-36.0) g/dL RDW (12.0-15.0) % Plt Count (130-450) 10^3/uL MPV (7.4-11.4) fL Neut # (Auto) (1.5-6.6) 10^3/uL Lymph # (Auto) (1.5-3.5) 10^3/uL [place] # (Auto) (0.0-1.0) 10^3/uL Eos # (Auto) (0.0-0.7) 10^3/uL Baso # (Auto) (0.0-0.1) 10^3/uL Absolute Nucleated RBC x10^3/uL Nucleated RBC % /100WBC Sodium 139 (135-145) mmol/L Potassium 4.1 (3.5-5.0) mmol/L Chloride 105 (101-111) mmol/L Carbon Dioxide 26 (21-32) mmol/L Anion Gap 8.0 (6-13) BUN 32 H (6-20) mg/dL Creatinine 0.8 (0.6-1.2) mg/dL Estimated GFR (MDRD) 107 (>89) Glucose 148 H (70-100) mg/dL POC Whole Bld Glucose 190 H 132 H (70 - 100) mg/dL Calcium 8.7 (8.5-10.3) mg/dL 09/05/22 09/04/22 09/04/22 Range/Units 06:23 20:08 16:25 WBC 7.7 (4.8-10.8) x10^3/uL RBC 4.06 L (4.70-6.10) 10^6/uL Hgb 10.2 L (14.0-18.0) g/dL Hct 33.1 L (42.0-52.0) % MCV 81.5 (80.0-94.0) fL MCH 25.1 L (27.0-31.0) pg MCHC 30.8 L (32.0-36.0) g/dL RDW 13.9 (12.0-15.0) % Plt Count 331 (130-450) 10^3/uL MPV 9.3 (7.4-11.4) fL Neut # (Auto) 5.1 (1.5-6.6) 10^3/uL Lymph # (Auto) 1.7 (1.5-3.5) 10^3/uL [place] # (Auto) 0.6 (0.0-1.0) 10^3/uL Eos # (Auto) 0.3 (0.0-0.7) 10^3/uL Baso # (Auto) 0.0 (0.0-0.1) 10^3/uL Absolute Nucleated RBC 0.00 x10^3/uL Nucleated RBC % 0.0 /100WBC Sodium (135-145) mmol/L Potassium (3.5-5.0) mmol/L Chloride (101-111) mmol/L Carbon Dioxide (21-32) mmol/L Anion Gap (6-13) BUN (6-20) mg/dL Creatinine (0.6-1.2) mg/dL Estimated GFR (MDRD) (>89) Glucose (70-100) mg/dL POC Whole Bld Glucose 159 H 100 (70 - 100) mg/dL Calcium (8.5-10.3) mg/dL ABX Reporting Has patient been on IV antibiotics over the past 48 hours?: Yes Sepsis Event Note (H) - Evaluation Current Stage of Sepsis: Ruled out Assessment/Plan - Problem List (1) Chronic diabetic ulcer of left foot determined by examination Impression: Patient wound continues to improve day by day. There is no signs of infection and tunneling has closed between ulcers on left foot. saw patients foot today and is pleased with its progress. Patient is tolerating ertapeneum treatment well Plan Complete ertapeneum therapy for a total of 6 weeks Continue wound dressing changes every other day. Continue to encourage mobility as tolerated and remain non-weightbearing directly on foot. If patient tolerates walking on left heel, use walker. (2) Osteomyelitis Impression: Patient is not showing any signs of foot infection and wound is healing as it should. Diagnosis was made per imaging. Plan Complete ertapeneum antibiotic therapy for a total of 6 weeks. (September 20) Qualifiers: Osteomyelitis type: other chronic Osteomyelitis location: foot Laterality: left Qualified Code(s): M86.672 - Other chronic osteomyelitis, left ankle and foot (3) Poorly controlled diabetes mellitus Impression: Patients glucose levels have improved since admission, however are still slightly elevated. Patient reports feeling more energetic and states that he is committed to a healthy lifestyle upon discharge. Plan Continue patient on insulin therapy, adjust dose as needed Continue patient on sliding scale before meals Continue on carb controlled meals
[2022-09-05] MEDS ORDERED: ALTEPLASE 2 MG VIAL IJ ONE (17:00)
[2022-09-06] MEDS: SODIUM CHLORIDE FLUSH 0.9% 10 ML SYRINGE IVP SCH ×3 (07:30→17:15)
[2022-09-06] MEDS: PANTOPRAZOLE 40 MG TABLET PO SCH (07:30)
--- NOTE | 2022-09-06 08:00 | PROVIDER PROGRESS NOTE ---
Progress Note September 06, 2022 07: 4 5 He wheels himself around the hospital with a wheelchair. Usually around [facility]. Does it so he can get out of his room and not feel so close to him. Doing well without any new complaints. Left foot is bandaged without any pain. No fever spikes. Eating 100% of his food. Glucose is controlled. Active Medications Acetaminophen (Acetaminophen 325 Mg Tablet) 650 mg PO Q4HR PRN PRN Reason: Pain 1 to 4, or Fever Last Admin: 08/23/22 05:15 Dose: 650 mg Hydrocodone Bitart/Acetaminophen (Hydrocod/Acetam 10 Mg/325 Mg Tablet) 1 tab PO Q4HR PRN PRN Reason: Pain 8 to 10 Last Admin: 08/19/22 11:45 Dose: 1 tab Hydrocodone Bitart/Acetaminophen (Hydrocod/Acetam 5/325 Mg Tablet) 1 tab PO Q4HR PRN PRN Reason: Pain 5 to 7 Last Admin: 09/03/22 20:06 Dose: 1 tab Ascorbic Acid (Ascorbic Acid 500 Mg Tablet) 500 mg PO DAILYWM [facility] Last Admin: 09/05/22 08:00 Dose: 500 mg Carboxymethylcellulose (Carboxymethylcellulose Ophth Drops) 1 drops EACHEYE PRN PRN PRN Reason: Dry Eye Last Admin: 08/22/22 17:05 Dose: 1 drops Enoxaparin Sodium (Enoxaparin 40 Mg/0.4 Ml Syringe) 40 mg SUBQ BID [facility] Last Admin: 09/05/22 21:02 Dose: 40 mg Ferrous Gluconate (Ferrous Gluconate 324 Mg Tablet) 324 mg PO DAILYWM [facility] Last Admin: 09/05/22 08:00 Dose: 324 mg Hydrochlorothiazide (Hydrochlorothiazide 25 Mg Tablet) 25 mg PO DAILY [facility] Last Admin: 09/05/22 08:00 Dose: 25 mg Ertapenem 1 gm/ Sodium (Chloride) 100 mls @ 200 mls/hr IV DAILY [facility] Last Infusion: 09/05/22 10:00 Dose: 0 mls/hr Ibuprofen (Ibuprofen 400 Mg Tablet) 400 mg PO Q6HR PRN PRN Reason: PAIN Last Admin: 09/04/22 11:57 Dose: 400 mg Insulin Glargine-yfgn (Insulin Glargine-Yfgn 300 Unit/3 Ml Pen) 40 unit SUBQ DAILY [facility] Last Admin: 09/05/22 08:05 Dose: 40 unit Insulin Glargine-yfgn (Insulin Glargine-Yfgn 300 Unit/3 Ml Pen) 10 unit SUBQ QPM [facility] Last Admin: 09/05/22 21:01 Dose: 10 unit Insulin Human Lispro (Insulin Lispro 300 Unit/3 Ml Pen) 1 - 9 unit SUBQ 0800,1200,1700,2100 [facility]; Protocol Last Admin: 09/05/22 21:01 Dose: Not Given Insulin Human Lispro (Insulin Lispro 300 Unit/3 Ml Pen) 10 unit SUBQ 0800 [facility] Last Admin: 09/05/22 08:05 Dose: 10 unit Insulin Human Lispro (Insulin Lispro 300 Unit/3 Ml Pen) 8 unit SUBQ 1200 [facility] Insulin Human Lispro (Insulin Lispro 300 Unit/3 Ml Pen) 5 unit SUBQ 1700 [facility] Loratadine (Loratadine 10 Mg Tablet) 10 mg PO DAILY PRN PRN Reason: ITCHING Last Admin: 09/01/22 05:56 Dose: 10 mg Losartan Potassium (Losartan 50 Mg Tablet) 50 mg PO BID [facility] Last Admin: 09/05/22 21:01 Dose: 50 mg Metformin HCl (Metformin 500 Mg Tablet) 1,000 mg PO BIDWM [facility] Last Admin: 09/05/22 17:00 Dose: 1,000 mg Metoclopramide HCl (Metoclopramide 10 Mg/2 Ml Vial) 5 mg IVP Q6HR PRN PRN Reason: NEEDED PER PROVIDER ORDERS Last Admin: 08/11/22 23:00 Dose: 5 mg Metoprolol Tartrate (Metoprolol Tartrate 25 Mg Tablet) 25 mg PO BID [facility] Last Admin: 09/05/22 21:01 Dose: 25 mg Multi-Ingred Cream/Lotion/Oil/Oint (Mineral Oil/Petrolat Ophth Oint) 1 applic EACHEYE QPM PRN PRN Reason: Dry Eye Last Admin: 08/23/22 20:49 Dose: 1 applic Multi-Ingredient Ointment (Zinc Oxide 20% Oint 30 Gm Tube) 1 applic TOP PRN PRN PRN Reason: Skin Care Last Admin: 08/13/22 18:46 Dose: 1 applic Multivitamins/Minerals (Multivitamin W/Minerals Tablet) 1 tab PO DAILYWM [facility] Last Admin: 09/05/22 07:59 Dose: 1 tab Nystatin (Nystatin Cream 15 Gm Tube) 1 applic TOP BID [facility] Last Admin: 09/05/22 21:04 Dose: 1 applic Ondansetron HCl (Ondansetron 4 Mg/2 Ml Vial) 4 mg IVP Q6HR PRN PRN Reason: Nausea / Vomiting Last Admin: 08/16/22 08:38 Dose: 4 mg Pantoprazole Sodium (Pantoprazole 40 Mg Tablet) 40 mg PO QDAC [facility] Last Admin: 09/06/22 07:30 Dose: 40 mg Systane Eye Drops 1 each EACHEYE PRN PRN PRN Reason: DRY EYE Last Admin: 09/05/22 11:37 Dose: 1 each Saccharomyces Boulardii (Saccharomyces Boulardii 250 Mg Capsule) 250 mg PO BIDWM [facility] Last Admin: 09/05/22 17:00 Dose: 250 mg Sodium Chloride (Sodium Chloride Flush 0.9% 10 Ml Syringe) 10 ml IVP PRN PRN PRN Reason: NEEDED PER PROVIDER ORDERS Last Admin: 09/05/22 06:28 Dose: 30 ml Sodium Chloride (Sodium Chloride Flush 0.9% 10 Ml Syringe) 10 ml IVP 0100,0900,1700 [facility] Last Admin: 09/06/22 07:30 Dose: 20 ml Sodium Chloride (Sodium Chloride Flush 0.9% 10 Ml Syringe) 20 ml IVP PRN PRN PRN Reason: After Blood Draw Last Admin: 08/30/22 05:40 Dose: 20 ml Throat Lozenges (Benzocaine/Menthol Lozenge) 1 lozenge MM Q2HR PRN PRN Reason: Throat pain Last Admin: 08/17/22 16:28 Dose: 1 lozenge Home Meds: Losartan [Cozaar] 50 mg PO BID 08/09/22 Omeprazole 40 mg PO DAILY 08/09/22 hydroCHLOROthiazide [Hydrodiuril] 25 mg PO DAILY 08/10/22 metFORMIN [Glucophage] 850 mg PO TIDWM 08/10/22 Exam: Temperature is 36.4. Heart rate 83. Blood pressure 108/59. He is usually not this low. Last night he was 126/66 before bedtime. He is asymptomatic with this. Respirations are 16 and he is 100% on room air. He is a morbidly obese, 5 foot 8 inch, 146 kg male. Comfortable. Alert. 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 Normal speech patterns. Lungs have diminished breath sounds at the bases but are otherwise clear without any increased respiratory effort. No crackles rhonchi or wheezing. Regular rate and rhythm Abdomen hugely obese, normal bowel sounds, unable to assess for organomegaly, nontender. Roxana intertrigo and redness underneath the pannus is being treated with nystatin. Legs have trace edema around the right ankle and calf. Left ankle has edema, more so than right, but in comparison to what he had on admission, it is almost nonexistent. Left foot is bandaged. Foot was seen yesterday and healing incredibly well. He has iron deficiency anemia with an iron of 27. B12 is normal. Labs are being done weekly. Last labs on September 05 were normal. He has a chronic normocytic anemia. Assessment/plan 1. Diabetic soft tissue infection. MRI shows possible osteomyelitis but orthopedic surgery feels this is an over read. Patient has been receiving wound care between Ortho and wound clinic. Antibiotics chosen between hospitalist and pharmacist based on cultures of Enterococcus, Klebsiella, beta-hemolytic strep group 3. Patient appears to been responding to the antibiotics, the wound care and control of his glucose and that there is been progression of good wound healing on a weekly basis. The tunnel between the 2 lateral left foot ulcers has closed. He is now left with dry, granulating pink, ulcers toward the base of the fifth toe, and toward the arch of his foot. He then has a third ulcer that is on the plantar surface at the base of his fifth toe. That is also with great pink granulating tissue, no redness or heat, no drainage. Patient has a tendency to be upright in his room using crutches and he occasionally does a hopping movement with weightbearing on the foot. I explained to him that he does have mushy bones, and if he puts too much weight on those bones, he will break his foot. So he has been spending more time in a wheelchair wheeling himself around. 2. Diabetes mellitus that was uncontrolled, with complications of neuropathy on admission. A1c was 12%. He usually uses 70/30 at home. We have gotten him under control and his dosing is Lantus 40 units in the morning, 10 units at night. He has 8 units of short acting insulin with lunch and dinner. And he gets sliding scale insulin before all meals and at at bedtime. Last night he was 103 before bedtime and his 10 units of Lantus. This morning's glucose before breakfast is pending. I will cut back his predinner lispro to 5 units.
[2022-09-06] MEDS: INSULIN LISPRO 300 UNIT/3 ML PEN SUBQ SCH ×7 (08:44→20:55)
[2022-09-06] MEDS: SYSTANE EYE DROPS EACHEYE PRN (08:44)
[2022-09-06] MEDS: INSULIN GLARGINE-YFGN 300 UNIT/3 ML PEN SUBQ SCH ×2 (08:45→20:55)
[2022-09-06] MEDS: ASCORBIC ACID 500 MG TABLET PO SCH (08:46)
[2022-09-06] MEDS: ENOXAPARIN 40 MG/0.4 ML SYRINGE SUBQ SCH ×2 (08:46→20:56)
[2022-09-06] MEDS: SACCHAROMYCES BOULARDII 250 MG CAPSULE PO SCH ×2 (08:46→17:14)
[2022-09-06] MEDS: METOPROLOL TARTRATE 25 MG TABLET PO SCH ×2 (08:46→20:56)
[2022-09-06] MEDS: FERROUS GLUCONATE 324 MG TABLET PO SCH (08:46)
[2022-09-06] MEDS: metFORMIN 500 MG TABLET PO SCH ×2 (08:46→17:14)
[2022-09-06] MEDS: LOSARTAN 50 MG TABLET PO SCH ×2 (08:46→20:56)
[2022-09-06] MEDS: NYSTATIN CREAM 15 GM TUBE TOP SCH ×2 (08:47→20:56)
[2022-09-06] MEDS: hydroCHLOROthiazide 25 MG TABLET PO SCH (08:47)
[2022-09-06] MEDS: MULTIVITAMIN W/MINERALS TABLET PO SCH (08:47)
[2022-09-06] MEDS: ERTAPENEM 1 GM in SODIUM CHLORIDE 0.9% MINIBAG 100 ML IV SCH (08:58)
[2022-09-06] MEDS: IBUPROFEN 400 MG TABLET PO PRN (13:27)
[2022-09-07] MEDS: SODIUM CHLORIDE FLUSH 0.9% 10 ML SYRINGE IVP SCH ×3 (02:17→17:07)
[2022-09-07] MEDS: PANTOPRAZOLE 40 MG TABLET PO SCH (05:20)
[2022-09-07] MEDS: metFORMIN 500 MG TABLET PO SCH (09:44)
[2022-09-07] MEDS: SYSTANE EYE DROPS EACHEYE PRN ×2 (09:44→21:08)
[2022-09-07] MEDS: INSULIN GLARGINE-YFGN 300 UNIT/3 ML PEN SUBQ SCH ×2 (09:45→21:02)
[2022-09-07] MEDS: INSULIN LISPRO 300 UNIT/3 ML PEN SUBQ SCH ×7 (09:45→21:01)
[2022-09-07] MEDS: FERROUS GLUCONATE 324 MG TABLET PO SCH (09:46)
[2022-09-07] MEDS: MULTIVITAMIN W/MINERALS TABLET PO SCH (09:46)
[2022-09-07] MEDS: LOSARTAN 50 MG TABLET PO SCH ×2 (09:46→21:03)
[2022-09-07] MEDS: SACCHAROMYCES BOULARDII 250 MG CAPSULE PO SCH ×2 (09:47→17:07)
[2022-09-07] MEDS: ENOXAPARIN 40 MG/0.4 ML SYRINGE SUBQ SCH ×2 (09:47→21:03)
[2022-09-07] MEDS: METOPROLOL TARTRATE 25 MG TABLET PO SCH ×2 (09:47→21:03)
[2022-09-07] MEDS: ASCORBIC ACID 500 MG TABLET PO SCH (09:47)
[2022-09-07] MEDS: hydroCHLOROthiazide 25 MG TABLET PO SCH (09:47)
[2022-09-07] MEDS: NYSTATIN CREAM 15 GM TUBE TOP SCH ×2 (09:48→21:03)
[2022-09-07] MEDS: ERTAPENEM 1 GM in SODIUM CHLORIDE 0.9% MINIBAG 100 ML IV SCH (10:03)
--- NOTE | 2022-09-07 13:42 | PROVIDER PROGRESS NOTE ---
Progress Note September 07, 2022 1:30 PM He tells me he has been good by not being weightbearing on the foot. His brother has been trying to get a scooter. They did call the [employer] for the kneeling scooter but his 146 kg is prohibitive for getting a regular scooter. And to pay for 1 its thousands of dollars. Otherwise no new complaints. No chest pain, no palpitations, no shortness of breath Active Medications Acetaminophen (Acetaminophen 325 Mg Tablet) 650 mg PO Q4HR PRN PRN Reason: Pain 1 to 4, or Fever Last Admin: 08/23/22 05:15 Dose: 650 mg Hydrocodone Bitart/Acetaminophen (Hydrocod/Acetam 10 Mg/325 Mg Tablet) 1 tab PO Q4HR PRN PRN Reason: Pain 8 to 10 Last Admin: 08/19/22 11:45 Dose: 1 tab Hydrocodone Bitart/Acetaminophen (Hydrocod/Acetam 5/325 Mg Tablet) 1 tab PO Q4HR PRN PRN Reason: Pain 5 to 7 Last Admin: 09/03/22 20:06 Dose: 1 tab Ascorbic Acid (Ascorbic Acid 500 Mg Tablet) 500 mg PO DAILYWM [facility] Last Admin: 09/07/22 09:47 Dose: 500 mg Carboxymethylcellulose (Carboxymethylcellulose Ophth Drops) 1 drops EACHEYE PRN PRN PRN Reason: Dry Eye Last Admin: 08/22/22 17:05 Dose: 1 drops Enoxaparin Sodium (Enoxaparin 40 Mg/0.4 Ml Syringe) 40 mg SUBQ BID [facility] Last Admin: 09/07/22 09:47 Dose: 40 mg Ferrous Gluconate (Ferrous Gluconate 324 Mg Tablet) 324 mg PO DAILYWM [facility] Last Admin: 09/07/22 09:46 Dose: 324 mg Hydrochlorothiazide (Hydrochlorothiazide 25 Mg Tablet) 25 mg PO DAILY [facility] Last Admin: 09/07/22 09:47 Dose: 25 mg Ertapenem 1 gm/ Sodium (Chloride) 100 mls @ 200 mls/hr IV DAILY [facility] Last Infusion: 09/07/22 10:45 Dose: Infused Ibuprofen (Ibuprofen 400 Mg Tablet) 400 mg PO Q6HR PRN PRN Reason: PAIN Last Admin: 09/06/22 13:27 Dose: 400 mg Insulin Glargine-yfgn (Insulin Glargine-Yfgn 300 Unit/3 Ml Pen) 40 unit SUBQ DAILY [facility] Last Admin: 09/07/22 09:45 Dose: 40 unit Insulin Glargine-yfgn (Insulin Glargine-Yfgn 300 Unit/3 Ml Pen) 10 unit SUBQ QPM [facility] Last Admin: 09/06/22 20:55 Dose: 10 unit Insulin Human Lispro (Insulin Lispro 300 Unit/3 Ml Pen) 1 - 9 unit SUBQ 0800,1200,1700,2100 [facility]; Protocol Last Admin: 09/07/22 12:56 Dose: 3 unit Insulin Human Lispro (Insulin Lispro 300 Unit/3 Ml Pen) 10 unit SUBQ 0800 [facility] Last Admin: 09/07/22 09:46 Dose: 10 unit Insulin Human Lispro (Insulin Lispro 300 Unit/3 Ml Pen) 8 unit SUBQ 1200 [facility] Last Admin: 09/07/22 12:57 Dose: 8 unit Insulin Human Lispro (Insulin Lispro 300 Unit/3 Ml Pen) 5 unit SUBQ 1700 [facility] Last Admin: 09/06/22 17:13 Dose: 5 unit Loratadine (Loratadine 10 Mg Tablet) 10 mg PO DAILY PRN PRN Reason: ITCHING Last Admin: 09/01/22 05:56 Dose: 10 mg Losartan Potassium (Losartan 50 Mg Tablet) 50 mg PO BID [facility] Last Admin: 09/07/22 09:46 Dose: 50 mg Metformin HCl (Metformin 500 Mg Tablet) 1,000 mg PO BIDWM [facility] Last Admin: 09/07/22 09:44 Dose: 1,000 mg Metoclopramide HCl (Metoclopramide 10 Mg/2 Ml Vial) 5 mg IVP Q6HR PRN PRN Reason: NEEDED PER PROVIDER ORDERS Last Admin: 08/11/22 23:00 Dose: 5 mg Metoprolol Tartrate (Metoprolol Tartrate 25 Mg Tablet) 25 mg PO BID [facility] Last Admin: 09/07/22 09:47 Dose: 25 mg Multi-Ingred Cream/Lotion/Oil/Oint (Mineral Oil/Petrolat Ophth Oint) 1 applic EACHEYE QPM PRN PRN Reason: Dry Eye Last Admin: 08/23/22 20:49 Dose: 1 applic Multi-Ingredient Ointment (Zinc Oxide 20% Oint 30 Gm Tube) 1 applic TOP PRN PRN PRN Reason: Skin Care Last Admin: 08/13/22 18:46 Dose: 1 applic Multivitamins/Minerals (Multivitamin W/Minerals Tablet) 1 tab PO DAILYWM [facility] Last Admin: 09/07/22 09:46 Dose: 1 tab Nystatin (Nystatin Cream 15 Gm Tube) 1 applic TOP BID [facility] Last Admin: 09/07/22 09:48 Dose: 1 applic Ondansetron HCl (Ondansetron 4 Mg/2 Ml Vial) 4 mg IVP Q6HR PRN PRN Reason: Nausea / Vomiting Last Admin: 08/16/22 08:38 Dose: 4 mg Pantoprazole Sodium (Pantoprazole 40 Mg Tablet) 40 mg PO QDAC [facility] Last Admin: 09/07/22 05:20 Dose: 40 mg Systane Eye Drops 1 each EACHEYE PRN PRN PRN Reason: DRY EYE Last Admin: 09/07/22 09:44 Dose: 1 each Saccharomyces Boulardii (Saccharomyces Boulardii 250 Mg Capsule) 250 mg PO BIDWM [facility] Last Admin: 09/07/22 09:47 Dose: 250 mg Sodium Chloride (Sodium Chloride Flush 0.9% 10 Ml Syringe) 10 ml IVP PRN PRN PRN Reason: NEEDED PER PROVIDER ORDERS Last Admin: 09/05/22 06:28 Dose: 30 ml Sodium Chloride (Sodium Chloride Flush 0.9% 10 Ml Syringe) 10 ml IVP 0100,0900,1700 [facility] Last Admin: 09/07/22 10:03 Dose: 10 ml Sodium Chloride (Sodium Chloride Flush 0.9% 10 Ml Syringe) 20 ml IVP PRN PRN PRN Reason: After Blood Draw Last Admin: 08/30/22 05:40 Dose: 20 ml Throat Lozenges (Benzocaine/Menthol Lozenge) 1 lozenge MM Q2HR PRN PRN Reason: Throat pain Last Admin: 08/17/22 16:28 Dose: 1 lozenge Home Meds: Losartan [Cozaar] 50 mg PO BID 08/09/22 Omeprazole 40 mg PO DAILY 08/09/22 hydroCHLOROthiazide [Hydrodiuril] 25 mg PO DAILY 08/10/22 metFORMIN [Glucophage] 850 mg PO TIDWM 08/10/22 Exam: Temperature is 36.6. Heart rate 66. Blood pressure 113/59, respirations 16, 100% on room air 5 foot 8 inch male, 146.5 kg Alert, oriented, lucid historian, normal sense and structure, no shortness of breath, very comfortable and in no distress at all Neck is supple but unable to be assessed for JVD due to size and girth Diminished breath sounds in large AP diameter chest. But no crackles, rhonchi, wheezing and no respiratory distress. No increased respiratory effort with pushing his own wheelchair, or transferring to the chair. He is getting into the shower and giving himself his own shower every day. Regular rate and rhythm Abdomen is obese, soft, nontender Trace edema around the left foot, no edema around the right foot. The left foot, with 3 ulcers, is improved tremendously. He has 2 ulcers on the lateral edge of the foot starting at the base of the fifth toe. The ulcer closest to the toe is still deep, down to pink granulation tissue, but no yellow serous drainage. Approximately 2 and half centimeters big. There used to be a tunnel that connected this ulcer subcutaneously into the ulcer going toward the heel. That tunnel has closed up. The ulcer toward the heel on the lateral aspect the foot is shrunken, small, dry, and about 1 and half centimeters big. The skin between these 2 lateral ulcers used to be wet, white, and macerated tissue. Tissue is now pink, normal. There is a third ulcer at the plantar surface of his foot underneath the base of the fifth toe. That is also almost completely healed, dry, becoming more more superficial as it fills in. None of these ulcers have drainage, redness, heat. Glucose yesterday was 124, 151, 124, 173. Glucose today is 143, 210 Assessment/plan 1. Diabetic soft tissue infection. MRI shows possible osteomyelitis but orthopedic surgery feels this is an over read. Patient has been receiving wound care between Ortho and wound clinic. Antibiotics chosen between hospitalist and pharmacist based on cultures of Enterococcus, Klebsiella, beta-hemolytic strep group 3. Patient appears to been responding to the antibiotics, the wound care and control of his glucose and that there is been progression of good wound healing on a weekly basis. The tunnel between the 2 lateral left foot ulcers has closed. He is now left with dry, granulating pink, ulcers: one toward the base of the fifth toe, and one toward the heel of his foot both on the lateral edge of the foot. He then has a third ulcer that is on the plantar surface at the base of his fifth toe. That is also with great pink granulating tissue, no redness or heat, no drainage. Patient has a tendency to be upright in his room using crutches and he occasionally does a hopping movement with weightbearing on the foot. I explained to him that he does have mushy bones, and if he puts too much weight on those bones, he will break his foot. So he has been spending more time in a wheelchair wheeling himself around. Plan: Still aiming for 6 weeks of IV antibiotic therapy. Orthopedics is starting to suggest that we go to 4 weeks of IV antibiotic therapy and then 2 weeks of oral therapy.Wound clinic initially was doing weekly dressing changes, then orthopedics changed that to daily dressing changes, and now orthopedics is asking us to do every other day dressing changes. He had 1 done today. The ulcers looks great. Nursing is doing a fantastic job I have ordered labs for next Thursday. CBC, CMP, and C-reactive protein. 2. Diabetes mellitus that was uncontrolled, with complications of neuropathy on admission. A1c was 12%. He usually uses 70/30 at home. We have gotten him under control and his dosing is Lantus 40 units in the morning, 10 units at night. He has 8 units of short acting insulin with lunch and dinner. And he gets sliding scale insulin before all meals and at at bedtime. Last night he was 103 before bedtime and his 10 units of Lantus. On the evening of September 05, his glucose had been low. The next morning we were hesitant to give him as much sliding scale. So he has been cut back from 8 units of short acting insulin with lunch and dinner to 8 units with lunch, 5 units with dinner.
[2022-09-08] MEDS: SODIUM CHLORIDE FLUSH 0.9% 10 ML SYRINGE IVP SCH ×3 (00:08→16:59)
[2022-09-08] MEDS: PANTOPRAZOLE 40 MG TABLET PO SCH (06:23)
[2022-09-08] MEDS: INSULIN LISPRO 300 UNIT/3 ML PEN SUBQ SCH ×7 (07:58→20:38)
[2022-09-08] MEDS: INSULIN GLARGINE-YFGN 300 UNIT/3 ML PEN SUBQ SCH ×2 (07:59→20:38)
[2022-09-08] MEDS: METOPROLOL TARTRATE 25 MG TABLET PO SCH ×2 (08:22→20:37)
[2022-09-08] MEDS: MULTIVITAMIN W/MINERALS TABLET PO SCH (08:23)
[2022-09-08] MEDS: FERROUS GLUCONATE 324 MG TABLET PO SCH (08:23)
[2022-09-08] MEDS: ASCORBIC ACID 500 MG TABLET PO SCH (08:23)
[2022-09-08] MEDS: SACCHAROMYCES BOULARDII 250 MG CAPSULE PO SCH ×2 (08:23→16:59)
[2022-09-08] MEDS: LOSARTAN 50 MG TABLET PO SCH ×2 (08:23→20:37)
[2022-09-08] MEDS: hydroCHLOROthiazide 25 MG TABLET PO SCH (08:23)
[2022-09-08] MEDS: NYSTATIN CREAM 15 GM TUBE TOP SCH ×2 (08:25→20:38)
[2022-09-08] MEDS: ENOXAPARIN 40 MG/0.4 ML SYRINGE SUBQ SCH ×3 (08:42→20:37)
[2022-09-08] MEDS: ERTAPENEM 1 GM in SODIUM CHLORIDE 0.9% MINIBAG 100 ML IV SCH (09:10)
--- NOTE | 2022-09-08 11:23 | PROVIDER PROGRESS NOTE ---
Progress Note September 08, 2022 11:13 AM Doing really well. We discussed about care conference and social work and case management were able to get on [employer] and see scooters for his knee that were $250 or less taking into account his size. We are also contacting [employer] to find out if he can qualify for getting a reduced cost for Lantus. I spoke to him about doing Lantus and short acting insulin he said he is perfectly fine with it. His mom uses Lantus. Active Medications Acetaminophen (Acetaminophen 325 Mg Tablet) 650 mg PO Q4HR PRN PRN Reason: Pain 1 to 4, or Fever Last Admin: 08/23/22 05:15 Dose: 650 mg Hydrocodone Bitart/Acetaminophen (Hydrocod/Acetam 10 Mg/325 Mg Tablet) 1 tab PO Q4HR PRN PRN Reason: Pain 8 to 10 Last Admin: 08/19/22 11:45 Dose: 1 tab Hydrocodone Bitart/Acetaminophen (Hydrocod/Acetam 5/325 Mg Tablet) 1 tab PO Q4HR PRN PRN Reason: Pain 5 to 7 Last Admin: 09/03/22 20:06 Dose: 1 tab Ascorbic Acid (Ascorbic Acid 500 Mg Tablet) 500 mg PO DAILYWM [facility] Last Admin: 09/08/22 08:23 Dose: 500 mg Carboxymethylcellulose (Carboxymethylcellulose Ophth Drops) 1 drops EACHEYE PRN PRN PRN Reason: Dry Eye Last Admin: 08/22/22 17:05 Dose: 1 drops Enoxaparin Sodium (Enoxaparin 40 Mg/0.4 Ml Syringe) 40 mg SUBQ BID [facility] Last Admin: 09/08/22 08:48 Dose: 40 mg Ferrous Gluconate (Ferrous Gluconate 324 Mg Tablet) 324 mg PO DAILYWM [facility] Last Admin: 09/08/22 08:23 Dose: 324 mg Hydrochlorothiazide (Hydrochlorothiazide 25 Mg Tablet) 25 mg PO DAILY [facility] Last Admin: 09/08/22 08:23 Dose: 25 mg Ertapenem 1 gm/ Sodium (Chloride) 100 mls @ 200 mls/hr IV DAILY [facility] Last Admin: 09/08/22 09:10 Dose: 200 mls/hr Ibuprofen (Ibuprofen 400 Mg Tablet) 400 mg PO Q6HR PRN PRN Reason: PAIN Last Admin: 09/06/22 13:27 Dose: 400 mg Insulin Glargine-yfgn (Insulin Glargine-Yfgn 300 Unit/3 Ml Pen) 40 unit SUBQ DAILY [facility] Last Admin: 09/08/22 07:59 Dose: 40 unit Insulin Glargine-yfgn (Insulin Glargine-Yfgn 300 Unit/3 Ml Pen) 10 unit SUBQ QPM [facility] Last Admin: 09/07/22 21:02 Dose: 10 unit Insulin Human Lispro (Insulin Lispro 300 Unit/3 Ml Pen) 1 - 9 unit SUBQ 0800,1200,1700,2100 [facility]; Protocol Last Admin: 09/08/22 07:58 Dose: Not Given Insulin Human Lispro (Insulin Lispro 300 Unit/3 Ml Pen) 10 unit SUBQ 0800 [facility] Last Admin: 09/08/22 07:58 Dose: 10 unit Insulin Human Lispro (Insulin Lispro 300 Unit/3 Ml Pen) 8 unit SUBQ 1200 [facility] Last Admin: 09/07/22 12:57 Dose: 8 unit Insulin Human Lispro (Insulin Lispro 300 Unit/3 Ml Pen) 5 unit SUBQ 1700 [facility] Last Admin: 09/07/22 17:03 Dose: Not Given Loratadine (Loratadine 10 Mg Tablet) 10 mg PO DAILY PRN PRN Reason: ITCHING Last Admin: 09/01/22 05:56 Dose: 10 mg Losartan Potassium (Losartan 50 Mg Tablet) 50 mg PO BID [facility] Last Admin: 09/08/22 08:23 Dose: 50 mg Metoclopramide HCl (Metoclopramide 10 Mg/2 Ml Vial) 5 mg IVP Q6HR PRN PRN Reason: NEEDED PER PROVIDER ORDERS Last Admin: 08/11/22 23:00 Dose: 5 mg Metoprolol Tartrate (Metoprolol Tartrate 25 Mg Tablet) 25 mg PO BID [facility] Last Admin: 09/08/22 08:22 Dose: 25 mg Multi-Ingred Cream/Lotion/Oil/Oint (Mineral Oil/Petrolat Ophth Oint) 1 applic EACHEYE QPM PRN PRN Reason: Dry Eye Last Admin: 08/23/22 20:49 Dose: 1 applic Multi-Ingredient Ointment (Zinc Oxide 20% Oint 30 Gm Tube) 1 applic TOP PRN PRN PRN Reason: Skin Care Last Admin: 08/13/22 18:46 Dose: 1 applic Multivitamins/Minerals (Multivitamin W/Minerals Tablet) 1 tab PO DAILYWM [facility] Last Admin: 09/08/22 08:23 Dose: 1 tab Nystatin (Nystatin Cream 15 Gm Tube) 1 applic TOP BID [facility] Last Admin: 09/08/22 08:25 Dose: 1 applic Ondansetron HCl (Ondansetron 4 Mg/2 Ml Vial) 4 mg IVP Q6HR PRN PRN Reason: Nausea / Vomiting Last Admin: 08/16/22 08:38 Dose: 4 mg Pantoprazole Sodium (Pantoprazole 40 Mg Tablet) 40 mg PO QDAC [facility] Last Admin: 09/08/22 06:23 Dose: 40 mg Systane Eye Drops 1 each EACHEYE PRN PRN PRN Reason: DRY EYE Last Admin: 09/07/22 21:08 Dose: 1 each Saccharomyces Boulardii (Saccharomyces Boulardii 250 Mg Capsule) 250 mg PO BIDWM [facility] Last Admin: 09/08/22 08:23 Dose: 250 mg Sodium Chloride (Sodium Chloride Flush 0.9% 10 Ml Syringe) 10 ml IVP PRN PRN PRN Reason: NEEDED PER PROVIDER ORDERS Last Admin: 09/05/22 06:28 Dose: 30 ml Sodium Chloride (Sodium Chloride Flush 0.9% 10 Ml Syringe) 10 ml IVP 0100,0900,1700 [facility] Last Admin: 09/08/22 09:11 Dose: 10 ml Sodium Chloride (Sodium Chloride Flush 0.9% 10 Ml Syringe) 20 ml IVP PRN PRN PRN Reason: After Blood Draw Last Admin: 08/30/22 05:40 Dose: 20 ml Throat Lozenges (Benzocaine/Menthol Lozenge) 1 lozenge MM Q2HR PRN PRN Reason: Throat pain Last Admin: 08/17/22 16:28 Dose: 1 lozenge Home Meds: Losartan [Cozaar] 50 mg PO BID 08/09/22 Omeprazole 40 mg PO DAILY 08/09/22 hydroCHLOROthiazide [Hydrodiuril] 25 mg PO DAILY 08/10/22 metFORMIN [Glucophage] 850 mg PO TIDWM 08/10/22 Exam: Temperature is 36.4. Heart rate 65. Blood pressure 120/72. Respirations 18. 100% on room air. Morbidly obese pleasant male. Wheelchairs himself around the building several times a day to keep himself active. He still stands and pivots on the good foot to get himself into the bathroom and back to bed. Out of the room several times a day to keep company and not get too depressing in the room. Neck is supple, short thick and unable to assess for JVD. Lungs are clear. Diminished breath sounds at the bases. Regular rate and rhythm Abdomen is obese, soft, nontender Extremities have trace edema around the left ankle and calf, no edema on the on the right. The left foot is wrapped at this time. I examined it yesterday. Labs are ordered for September 12 Assessment/plan 1. Diabetic foot infection with osteomyelitis and cellulitis that is resolved. Now it is down to wound healing from good wound care. He is doing very well and wounds are closing quite nicely. If we give him 6 weeks of antibiotic therapy he would be at the end of September. If we give him 4 weeks of antibiotic therapy, he ends as of September 18. If we switch him over to oral for the last 2 weeks ciprofloxacin will cover the bacteria we identified before. Social work and case management will download the information from [employer] and give pictures to him. That way he and his brother can buy that knee scooter. 2. Type 2 diabetes mellitus, uncontrolled, with complications of neuropathy, with hyperglycemia, on long-term insulin. During the stay he has lost about 4 kg of weight. He is in a carb controlled diet. Wound healing is occurred very nicely. Over the last 2 days I have been gradually decreasing some of his insulin because he is getting hypoglycemic. He is on Lantus 40 in the morning, and Lantus 10 at night. He was getting 10 units in the morning, 8 units at lunch, 8 units at dinner. 2 days ago I cut back the dinner lispro dose from 8->5 units. Today I will be cutting his lunch lispro dose from 8->5. Continue the 10 units with breakfast. I will be calling in the Lantus prescription as well as a lispro prescription to [facility] today. We will at least get an idea of how much this is going to cost him once he leaves the hospital. Chronic or resolved problems: Abscess of left foot Sepsis Hyponatremia Difficulty swallowing solids Infection with Enterococcus, Klebsiella, beta-hemolytic strep group B Morbid obesity
[2022-09-09] MEDS: SODIUM CHLORIDE FLUSH 0.9% 10 ML SYRINGE IVP SCH ×3 (00:45→16:58)
[2022-09-09] MEDS: PANTOPRAZOLE 40 MG TABLET PO SCH (05:36)
[2022-09-09] MEDS: ASCORBIC ACID 500 MG TABLET PO SCH (08:06)
[2022-09-09] MEDS: FERROUS GLUCONATE 324 MG TABLET PO SCH (08:06)
[2022-09-09] MEDS: MULTIVITAMIN W/MINERALS TABLET PO SCH (08:06)
[2022-09-09] MEDS: INSULIN LISPRO 300 UNIT/3 ML PEN SUBQ SCH ×6 (08:07→21:01)
[2022-09-09] MEDS: SACCHAROMYCES BOULARDII 250 MG CAPSULE PO SCH ×2 (08:07→16:57)
[2022-09-09] MEDS: METOPROLOL TARTRATE 25 MG TABLET PO SCH ×2 (08:47→20:56)
[2022-09-09] MEDS: INSULIN GLARGINE-YFGN 300 UNIT/3 ML PEN SUBQ SCH ×2 (08:47→21:01)
[2022-09-09] MEDS: ENOXAPARIN 40 MG/0.4 ML SYRINGE SUBQ SCH ×2 (08:47→20:59)
[2022-09-09] MEDS: LOSARTAN 50 MG TABLET PO SCH ×2 (08:47→20:56)
[2022-09-09] MEDS: hydroCHLOROthiazide 25 MG TABLET PO SCH (08:47)
[2022-09-09] MEDS: NYSTATIN CREAM 15 GM TUBE TOP SCH ×2 (08:48→21:02)
[2022-09-09] MEDS: ERTAPENEM 1 GM in SODIUM CHLORIDE 0.9% MINIBAG 100 ML IV SCH (11:16)
--- NOTE | 2022-09-09 13:48 | WOUND CARE PROGRESS NOTE ---
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 Seems to be under suboptimal control. Lantus is being arranged for him to use as an outpatient. Improved control will optimize healing. (2) Non-pressure chronic ulcer of other part of left foot with fat layer exposed Assessment/Plan: 42-year-old male hospitalized for diabetic foot ulcerations complicated by osteomyelitis, abscess/phlegmon, cellulitis, and possible septic joint. No detectable signs of infection on exam and patient continues on Ertapenem. His WBC count remains normal. His CRP had been hovering around 3 which is still elevated. No repeat CRP done. I would recommend serial measurement weekly. He remains at high risk for amputation. He has complex wounds. His distal lateral left foot ulcer tunnels extensively. He has protracted course of wound healing in front of him. Status: Improved, as evidenced by decreasing nonviable tissue and freeman measurements. His wound granulation tissue is healthier. His main ulcer tunnels extensively. Wounds cleansed with normal saline and Anasept. Left distal lateral foot wound and tunnels filled with AMD gauze. Left proximal lateral foot wound dressed with collagen and hydrofera blue. Left plantar 5th MTH wound dressed with collagen and hyrofera blue. All wounds then covered with Optilock and secured with rolled gauze and tape. Change all dressings 3XW and prn. Offloading: Total NWB L foot. Await delivery of knee scooter. Anticipated we would start NPWT today, but was unable to locate white foam needed to place in tunnels. Will work on obtaining some. Goals: Resolve osteomyelitis. Remove necrotic/devitalized tissue Redistribute pressure Repair/Regenerate tissue. Manage co-morbidities Limb salvage Appropriate follow up instructions were given. He was given a follow-up appointment in the outpatient [facility] in 7 days, sooner PRN. - Home Meds/Allergies Allergies No Known Drug Allergies Allergy (Verified 08/12/22 08:50) Home Medications Losartan [Cozaar] 50 mg PO BID 02/04/23 [History Confirmed 08/09/22] Omeprazole 40 mg PO DAILY 08/09/22 [History Confirmed 08/09/22] hydroCHLOROthiazide [Hydrodiuril] 25 mg PO DAILY 08/10/22 [History Confirmed 08/10/22] metFORMIN [Glucophage] 850 mg PO TIDWM 08/10/22 [History Confirmed 08/10/22] Objective Comments/Notes: Vitals (Done on floor at 0720): T 36.4 C, HR 66, RR 16, BP 112/71. O2 Sat 99% (room air). Constitutional: NAD. Alert and conversant. Respiratory: Normal respiratory effort. Cardiovascular: Regular rate. The left foot edema is now minimal. Musculoskeletal: No prior amputations. No foot/toe deformities. Neurological: L foot drop. Loss of protective sensation noted bilateral feet to [employer] [employer] monofilament testing. Labs: WBC has normalized. H&H show stable mild anemia. Platelet count has normalized. GFR normal. CRP without updated measurement. Previously stable in the 3's. Blood sugars in the 200's today. Previously reviewed: Micro: 08/12/22: Wound culture grew klebsiella oxytoca, GBS, and E. faecalis. Anaerobic cultures NG. Anaerobic gram stain did show some GPC and WBCs. 08/09/22: Blood culture no growth x 2. Imagin08/20/22: L foot MRI WO/W contrast demonstrated increased nonenhancement of the intrinsic foot musculature surrounding the fifth metatarsal suspicious for worsening infectious involvement with possible evolving necrosis vs ischemia. Otherwise, there were no significant changes compared to 08/13/22. 08/13/22: L foot MRI WO/W contrast demonstrated findings compatible with osteomyelitis of the 5th metatarsal head and shaft and 5th proximal phalanx, possible septic arthritis in the 5th MTPJ, findings compatible with a 7.8 x 2.1 x 6.2 cm abscess/phlegmon in the dorsal aspect of the forefoot tracking lateral and plantar to the 5th metatarsal, and findings consistent with cellulitis. - Wound Assessment Wound #1 is a full-thickness diabetic foot ulcer of the left lateral foot at the level of the fifth metatarsal head. It measures 2.0 x 2.0 x 0.6 cm (L x W x D). There is extensive tunneling (7:00 with distance of 1.3 cm, 10:00 with distance 4.5 cm, and 11:00 with distance 2.9 cm). There is light yellow serous drainage noted which has no odor. The patient reports a wound pain level 0/10. The wound margin is unattached. The wound bed has no epithelialization, no eschar, yes slough, yes firm red granulation. The periwound skin texture, moisture, temperature, and color are normal. Exposed structures: Adipose. Wound #2 is a full-thickness diabetic foot ulcer of the left plantar foot at the level of the fifth metatarsal head. It measures 2.1 x 1.3 x 0.1 1.0 x 1.2 x 0.1 cm (L x W x D). There is no undermining, tunneling, or sinus tracking. There is light yellow serous drainage noted which has no odor. The patient reports a wound pain level 0/10. The wound margin is callused and unattached. The wound bed has no epithelialization, no eschar, yes slough, and yes firm red granulation. The periwound skin texture, moisture, temperature, and color are normal. Exposed structures: Adipose. Wound #3 is a full-thickness diabetic foot ulcer of the left lateral foot, proximal. It measures 1.1 x 1.4 x 0.3 cm (L x W x D). There is 0.6 cm undermining from 4:00 to 5:00. There is no tunneling or sinus tracking. There is light yellow serous drainage noted which has no odor. The patient reports a wound pain level 0/10. The wound margin is unattached. The wound bed has no epithelialization, no eschar, yes slough, and yes firm red granulation. The periwound skin texture, moisture, temperature, and color are normal. Exposed structures: Adipose. I am unable to demonstrate a communication between the wounds. Subjective - Subjective Patient Reports: Other (Dressings intact and tolerated well Attentive to offloading. Is awaiting delivery of a knee scooter that he recently purchased. Denies FCS. Denies pain.) Procedure - Procedure Note Wound #1: After informed consent was obtained, a skin/subcutaneous tissue level surgical debridement with a total area of 4.41 square centimeters was performed by Juan Wren MD. Using a curette, dermis, epidermis, and subcutaneous tissues were removed along with devitalized tissue: Exudate and slough. Pain control was achieved using 5% topical lidocaine. A timeout was conducted prior to the start of the procedure. A minimal amount of bleeding was controlled with pressure. The procedure was tolerated well. Postdebridement measurements: 2.1 x 2.1 x 0.6 cm (L x W x D). Wound #2: After informed consent was obtained, a skin/subcutaneous tissue level surgical debridement with a total area of 4.00 square centimeters was performed by Juan Wren MD. Using a curette, dermis, epidermis, and subcutaneous tissues were removed along with devitalized tissue: Callus, exudate and slough. Pain control was achieved using 5% topical lidocaine. A timeout was conducted prior to the start of the procedure. A minimal amount of bleeding was controlled with pressure. The procedure was tolerated well. Postdebridement measurements: 2.5 x 1.6 x 0.3 cm (L x W x D). Wound #3: After informed consent was obtained, a skin/subcutaneous tissue level surgical debridement with a total area of 1.30 square centimeters was performed by Juan Wren MD. Using a curette, dermis, epidermis, and subcutaneous tissues were removed along with devitalized tissue: Exudate and slough. Pain control was achieved using 5% topical lidocaine. A timeout was conducted prior to the start of the procedure. A minimal amount of bleeding was controlled with pressure. The procedure was tolerated well. Postdebridement measurements: 1.0 x 1.3 x 0.5 cm (L x W x D).
[2022-09-09] MEDS: metFORMIN 850 MG TABLET PO SCH (16:57)
[2022-09-09] MEDS: SODIUM CHLORIDE FLUSH 0.9% 10 ML SYRINGE IVP PRN (16:58)
[2022-09-09] MEDS ORDERED: INSULIN LISPRO 300 UNIT/3 ML PEN SUBQ SCH (17:00)
[2022-09-09] MEDS: SYSTANE EYE DROPS EACHEYE PRN (21:03)
[2022-09-10] MEDS: SODIUM CHLORIDE FLUSH 0.9% 10 ML SYRINGE IVP SCH ×3 (00:32→16:56)
[2022-09-10] MEDS: PANTOPRAZOLE 40 MG TABLET PO SCH (05:15)
[2022-09-10] MEDS: INSULIN LISPRO 300 UNIT/3 ML PEN SUBQ SCH ×5 (07:39→20:44)
[2022-09-10] MEDS: MULTIVITAMIN W/MINERALS TABLET PO SCH (07:40)
[2022-09-10] MEDS: METOPROLOL TARTRATE 25 MG TABLET PO SCH ×2 (07:40→20:38)
[2022-09-10] MEDS: ASCORBIC ACID 500 MG TABLET PO SCH (07:40)
[2022-09-10] MEDS: metFORMIN 850 MG TABLET PO SCH ×3 (07:40→16:58)
[2022-09-10] MEDS: SACCHAROMYCES BOULARDII 250 MG CAPSULE PO SCH ×2 (07:40→16:58)
[2022-09-10] MEDS: hydroCHLOROthiazide 25 MG TABLET PO SCH (07:41)
[2022-09-10] MEDS: ENOXAPARIN 40 MG/0.4 ML SYRINGE SUBQ SCH ×2 (07:41→20:39)
[2022-09-10] MEDS: FERROUS GLUCONATE 324 MG TABLET PO SCH (07:41)
[2022-09-10] MEDS: INSULIN GLARGINE-YFGN 300 UNIT/3 ML PEN SUBQ SCH ×2 (07:42→20:44)
[2022-09-10] MEDS ORDERED: INSULIN LISPRO 300 UNIT/3 ML PEN SUBQ SCH ×2 (08:00→12:00)
--- NOTE | 2022-09-10 08:17 | PROVIDER PROGRESS NOTE ---
Assessment/Plan - Problem List (1) Chronic diabetic ulcer of left foot determined by examination Assessment/Plan: He has a Diabetic foot infection with osteomyelitis and 3 foot ulcers, he had cellulitis that has resolved. Now it is down to wound healing by good wound care and finishing 4 weeks of iv antibx. He is doing very well and wounds are closing quite nicely. If we give him 6 weeks of antibiotic therapy this would finish at the end of September. If we give him 4 weeks of antibiotic therapy, this ends as of September 18. Then we will switch him over to oral antibx for the last 2 weeks of ciprofloxacin, which will cover the bacteria we identified before. The knee scooter was purchased andis arriving (by [employer]) in 2-3 days. 2. Type 2 diabetes mellitus, uncontrolled, with complications of neuropathy, with hyperglycemia, on long-term insulin. Today he demanded to restart Metformin. Med list was reviewed and he took 850 BID During the stay he has lost about 4 kg of weight. He is in a carb controlled diet. Wound healing is occurred very nicely. Recently we decreased some of his insulin because he wAs getting hypoglycemic. He was on Lantus 40 in the morning, and Lantus 10 at night. He was getting short acting 10 units in the morning, 8 units at lunch, 8 units at dinner. Several days ago we cut back the dinner lispro dose from 8->5 units and lunch lispro dose from 8->5. Continued the 10 units with breakfast. Plan: Today I will start Metformin BID, beginning with dinner. Will decrease the Lantus dose from 40 >> 30, and decrease each meal dose from 10, 5, 5 >> 4, 2, 2. - Current Meds Current Meds: Current Medications Generic Name Dose Route Start Last Admin Trade Name Freq PRN Reason Stop Dose Admin Acetaminophen 650 mg 08/09/22 21:56 08/23/22 05:15 Acetaminophen 325 Mg Tablet PO 650 mg Q4HR PRN Administration Pain 1 to 4, or Fever Hydrocodone Bitart/Acetaminophen 1 tab 08/09/22 21:56 08/19/22 11:45 Hydrocod/Acetam 10 Mg/325 Mg Tablet PO 1 tab Q4HR PRN Administration Pain 8 to 10 Hydrocodone Bitart/Acetaminophen 1 tab 08/09/22 21:56 09/03/22 20:06 Hydrocod/Acetam 5/325 Mg Tablet PO 1 tab Q4HR PRN Administration Pain 5 to 7 Ascorbic Acid 500 mg 08/24/22 08:00 09/10/22 07:40 Ascorbic Acid 500 Mg Tablet PO 500 mg DAILYWM ADRI Administration Carboxymethylcellulose 1 drops 08/10/22 01:01 08/22/22 17:05 Carboxymethylcellulose Ophth Drops EACHEYE 1 drops PRN PRN Administration Dry Eye Enoxaparin Sodium 40 mg 08/22/22 09:00 09/10/22 07:41 Enoxaparin 40 Mg/0.4 Ml Syringe SUBQ 40 mg BID ADRI Administration Ferrous Gluconate 324 mg 08/24/22 08:00 09/10/22 07:41 Ferrous Gluconate 324 Mg Tablet PO 324 mg DAILYWM ADRI Administration Hydrochlorothiazide 25 mg 08/17/22 09:00 09/10/22 07:41 Hydrochlorothiazide 25 Mg Tablet PO 25 mg DAILY ADRI Administration Ertapenem 1 gm/ Sodium 100 mls @ 200 mls/hr 08/20/22 12:00 09/09/22 12:00 Chloride IV Infused DAILY [facility] Infusion Ibuprofen 400 mg 08/23/22 14:27 09/06/22 13:27 Ibuprofen 400 Mg Tablet PO 400 mg Q6HR PRN Administration PAIN Insulin Glargine-yfgn 30 unit 09/10/22 09:00 09/10/22 07:42 Insulin Glargine-Yfgn 300 Unit/3 Ml Pen SUBQ 30 unit DAILY ADRI Administration Insulin Glargine-yfgn 5 unit 09/09/22 21:00 09/09/22 21:01 Insulin Glargine-Yfgn 300 Unit/3 Ml Pen SUBQ 5 unit QPM ADRI Administration Insulin Human Lispro 1 - 9 unit 08/22/22 17:00 09/10/22 07:39 Insulin Lispro 300 Unit/3 Ml Pen SUBQ 3 unit 0800,1200,1700,2100 [facility] Administration Protocol Insulin Human Lispro 2 unit 09/09/22 17:00 09/09/22 17:03 Insulin Lispro 300 Unit/3 Ml Pen SUBQ 2 unit 1700 ADRI Administration Insulin Human Lispro 4 unit 09/10/22 08:00 09/10/22 07:39 Insulin Lispro 300 Unit/3 Ml Pen SUBQ 4 unit 0800 ADRI Administration Loratadine 10 mg 08/31/22 07:44 09/01/22 05:56 Loratadine 10 Mg Tablet PO 10 mg DAILY PRN Administration ITCHING Losartan Potassium 50 mg 08/10/22 09:00 09/09/22 20:56 Losartan 50 Mg Tablet PO 50 mg BID ADRI Administration Metformin HCl 850 mg 09/09/22 17:00 09/10/22 07:40 Metformin 850 Mg Tablet PO 850 mg TIDWM ADRI Administration Metoclopramide HCl 5 mg 08/11/22 22:37 08/11/22 23:00 Metoclopramide 10 Mg/2 Ml Vial IVP 5 mg Q6HR PRN Administration NEEDED PER PROVIDER ORDERS Metoprolol Tartrate 25 mg 08/10/22 09:00 09/10/22 07:40 Metoprolol Tartrate 25 Mg Tablet PO 25 mg BID ADRI Administration Multi-Ingred Cream/Lotion/Oil/Oint 1 applic 08/22/22 15:55 08/23/22 20:49 Mineral Oil/Petrolat Ophth Oint EACHEYE 1 applic QPM PRN Administration Dry Eye Multi-Ingredient Ointment 1 applic 08/13/22 18:12 08/13/22 18:46 Zinc Oxide 20% Oint 30 Gm Tube TOP 1 applic PRN PRN Administration Skin Care Multivitamins/Minerals 1 tab 08/15/22 09:00 09/10/22 07:40 Multivitamin W/Minerals Tablet PO 1 tab DAILYWM ADRI Administration Nystatin 1 applic 09/03/22 13:00 09/09/22 21:02 Nystatin Cream 15 Gm Tube TOP 1 applic BID ADRI Administration Ondansetron HCl 4 mg 08/09/22 21:56 08/16/22 08:38 Ondansetron 4 Mg/2 Ml Vial IVP 4 mg Q6HR PRN Administration Nausea / Vomiting Pantoprazole Sodium 40 mg 08/10/22 07:00 09/10/22 05:15 Pantoprazole 40 Mg Tablet PO 40 mg QDAC ADRI Administration Systane Eye Drops 1 each 08/24/22 16:00 09/09/22 21:03 EACHEYE 1 each PRN PRN Administration DRY EYE Saccharomyces Boulardii 250 mg 08/17/22 17:00 09/10/22 07:40 Saccharomyces Boulardii 250 Mg Capsule PO 250 mg BIDWM ADRI Administration Sodium Chloride 10 ml 08/09/22 21:56 09/09/22 16:58 Sodium Chloride Flush 0.9% 10 Ml Syringe IVP 10 ml PRN PRN Administration NEEDED PER PROVIDER ORDERS Sodium Chloride 10 ml 08/10/22 01:00 09/10/22 00:32 Sodium Chloride Flush 0.9% 10 Ml Syringe IVP 10 ml 0100,0900,1700 ADRI Administration Sodium Chloride 20 ml 08/25/22 03:57 08/30/22 05:40 Sodium Chloride Flush 0.9% 10 Ml Syringe IVP 20 ml PRN PRN Administration After Blood Draw Throat Lozenges 1 lozenge 08/10/22 01:01 08/17/22 16:28 Benzocaine/Menthol Lozenge MM 1 lozenge Q2HR PRN Administration Throat pain - Lab Result Fish Bone Diagrams: 09/05/22 06:23 09/05/22 06:23 - Additional Planning My Orders: My Active Orders 09/09/22 17:00 Insulin Lispro [Humalog Kwikpen U-100] 2 unit SUBQ 1700 metFORMIN [Glucophage] 850 mg PO TIDWM 09/09/22 21:00 Insulin Glargine-Yfgn [Semglee] 5 unit SUBQ QPM 09/10/22 08:00 Insulin Lispro [Humalog Kwikpen U-100] 4 unit SUBQ 0800 09/10/22 09:00 Insulin Glargine-Yfgn [Semglee] 30 unit SUBQ DAILY 09/10/22 12:00 Insulin Lispro [Humalog Kwikpen U-100] 2 unit SUBQ 1200 Subjective - Subjective Patient Reports: Feeling Better (He wants to restart his Metformin but is amenable to continue Insulin as well) Objective Vital Signs: Vital Signs - 24 hr 09/09/22 09/09/22 09/09/22 08:47 16:34 20:56 Temperature 37 C Heart Rate [ 74 Brachial] Heart Rate [ 16 L Monitoring electrodes] Respiratory 16 Rate Blood Pressure 118/67 110/58 L Blood Pressure 122/81 H [Left Brachial artery] Blood Pressure [Right Brachial artery] O2 Saturation 99 09/10/22 09/10/22 09/10/22 00:00 07:16 07:40 Temperature 36.3 C L 36.8 C Heart Rate [ 77 Brachial] Heart Rate [ 80 Monitoring electrodes] Respiratory 18 16 Rate Blood Pressure 119/69 Blood Pressure 119/96 H [Left Brachial artery] Blood Pressure 115/69 [Right Brachial artery] O2 Saturation 100 98 Oxygen O2 Source Room air I&O (Last 24 Hrs): Intake and Output Totals x24h 09/08/22 09/09/22 09/10/22 23:59 23:59 23:59 Intake Total 1380 2260 200 Balance 1380 2260 200 General: Alert, Oriented x3 HEENT: Mucous membr. moist/pink Neck: Supple Neuro: Alert Cardiovascular: Regular rate, No murmurs Respiratory: No respiratory distress Abdomen: Soft, Other (Obese) Extremities: No clubbing, No edema, Other (L foot and toes bandaged) - Results Results: Laboratory Results WBC 7.7 x10^3/uL (4.8-10.8) 09/05/22 06:23 RBC 4.06 10^6/uL (4.70-6.10) L 09/05/22 06:23 Hgb 10.2 g/dL (14.0-18.0) L 09/05/22 06:23 Hct 33.1 % (42.0-52.0) L 09/05/22 06:23 MCV 81.5 fL (80.0-94.0) 09/05/22 06:23 MCH 25.1 pg (27.0-31.0) L 09/05/22 06: MCHC 30.8 g/dL (32.0-36.0) L 09/05/22 06:23 RDW 13.9 % (12.0-15.0) 09/05/22 06:23 Plt Count 331 10^3/uL (130-450) 09/05/22 06:23 MPV 9.3 fL (7.4-11.4) 09/05/22 06:23 Reticulocyte % (Auto) 1.17 % (0.5-2.3) 08/24/22 04:19 Neut # (Auto) 5.1 10^3/uL (1.5-6.6) 09/05/22 06:23 Lymph # (Auto) 1.7 10^3/uL (1.5-3.5) 03/03/23 06:23 [place] # (Auto) 0.6 10^3/uL (0.0-1.0) 09/05/22 06:23 Eos # (Auto) 0.3 10^3/uL (0.0-0.7) 09/05/22 06:23 Baso # (Auto) 0.0 10^3/uL (0.0-0.1) 09/05/22 06:23 Absolute Nucleated RBC 0.00 x10^3/uL 09/05/22 06:23 Total Counted 100 08/09/22 19:59 Band Neuts % (Manual) 2 % (0-10) 08/09/22 19:59 Abnorm Lymph % (Manual) 0 % 08/09/22 19:59 Nucleated RBC % 0.0 /100WBC 09/05/22 06: Neutrophils # (Manual) 18.7 10^3/uL (1.5-6.6) H 08/09/22 19:59 Lymphocytes # (Manual) 1.3 10^3/uL (1.5-3.5) L 08/09/22 19:59 Monocytes # (Manual) 1.3 10^3/uL (0.0-1.0) H 08/09/22 19:59 Eosinophils # (Manual) 0.0 10^3/uL (0-0.7) 08/09/22 19:59 Basophils # (Manual) 0.0 10^3/uL (0-0.1) 08/09/22 19:59 Differential Comment MANUAL DIFFERENTIAL 08/09/22 19:59 WBC Morphology 2+ TOXIC GRANULATION (NORMAL) 08/09/22 19:59 Platelet Estimate NORMAL (130-450,000) (NORMAL) 08/09/22 19:59 Platelet Morphology NORMAL APPEARANCE (NORMAL) 08/09/22 19:59 RBC Morph Micro Appear NORMAL APPEARANCE (NORMAL) 08/09/22 19:59 ESR 64 mm/Hr (0-15) H 08/09/22 19:59 Absolute Retic 0.046 10^6/uL (0.020-0.110) 08/24/22 04:19 Sodium 139 mmol/L (135-145) 09/05/22 06:23 Potassium 4.1 mmol/L (3.5-5.0) 09/05/22 06:23 Chloride 105 mmol/L (101-111) 09/05/22 06:23 Carbon Dioxide 26 mmol/L (21-32) 09/05/22 06:23 Anion Gap 8.0 (6-13) 09/05/22 06:23 BUN 32 mg/dL (6-20) H 09/05/22 06:23 Creatinine 0.8 mg/dL (0.6-1.2) 09/05/22 06:23 Estimated GFR (MDRD) 107 (>89) 09/05/22 06:23 Glucose 148 mg/dL (70-100) H 09/05/22 06:23 POC Whole Bld Glucose 190 mg/dL (70 - 100) H 09/10/22 07:11 Estimat Average Glucose 298 mg/dL (70-100) H 08/10/22 06:26 Hemoglobin A1c % 12.0 % (4.27-6.07) H 08/10/22 06:26 Lactic Acid 1.4 mmol/L (0.5-2.2) 08/09/22 21:46 Calcium 8.7 mg/dL (8.5-10.3) 09/05/22 06:23 Magnesium 2.4 mg/dL (1.7-2.8) 08/30/22 05:45 Iron 24 ug/dL (45-182) L 08/24/22 04:19 Iron 27 ug/dL (45-182) L 08/24/22 04:19 TIBC 273 ug/dL (250-450) 08/24/22 04:19 % Saturation 9 % (20-50) L 08/24/22 04:19 Transferrin 195 mg/dL (180-329) 08/24/22 04:19 Ferritin 95.4 ng/mL (23.9-336.2) 08/24/22 04:19 Total Bilirubin 1.4 mg/dL (0.2-1.0) H 08/10/22 06:26 AST 22 IU/L (10-42) 08/10/22 06:26 ALT 21 IU/L (10-60) 08/10/22 06:26 Alkaline Phosphatase 113 IU/L (42-121) 08/10/22 06:26 Lactate Dehydrogenase 100 IU/L (91-225) 08/24/22 04:19 C-Reactive Protein 3.4 mg/dL (0-1.0) H 08/31/22 06:35 Total Protein 6.6 g/dL (6.7-8.2) L 08/10/22 06:26 Albumin 2.7 g/dL (3.2-5.5) L 08/10/22 06:26 Globulin 3.9 g/dL (2.1-4.2) 08/10/22 06:26 Albumin/Globulin Ratio 0.7 (1.0-2.2) L 08/10/22 06:26 Triglycerides 136 mg/dL (-149) 08/10/22 06:26 Cholesterol 153 mg/dL (-199) 08/10/22 06:26 LDL Cholesterol, Calc 97 mg/dL (-129) 08/10/22 06:26 VLDL Cholesterol 27 mg/dL 08/10/22 06:26 HDL Cholesterol 29 mg/dL (60-) L 08/10/22 06:26 LDL/HDL Ratio 3.3 (<3.6) 08/10/22 06:26 Cholesterol/HDL Ratio 5.3 (<5.0) 08/10/22 06:26 Lipase 23 U/L (22-51) 08/09/22 19:59 Vitamin B12 201 pg/mL (180-914) 08/24/22 04:19 Procalcitonin 0.84 ng/mL (<0.5) H 08/09/22 21:46 TSH 0.84 uIU/mL (0.34-5.60) 08/10/22 06:26 Urine Color DARK YELLOW 08/09/22 20:27 Urine Clarity CLEAR (CLEAR) 08/09/22 20: Urine pH 5.5 PH (5.0-7.5) 08/09/22 20:27 Ur Specific [place] 1.015 (1.002-1.030) 08/09/22 20:27 Urine Protein NEGATIVE mg/dL (NEGATIVE) 08/09/22 20:27 Urine Glucose (UA) >=1000 mg/dL (NEGATIVE) H 08/09/22 20:27 Urine Ketones TRACE mg/dL (NEGATIVE) 08/09/22 20:27 Urine Occult Blood TRACE-INTA (NEGATIVE) 08/09/22 20:27 Urine Nitrite NEGATIVE (NEGATIVE) 08/09/22 20:27 Urine Bilirubin SMALL (NEGATIVE) H 08/09/22 20:27 Urine Urobilinogen 2 E.U./dL (NORMAL) H 08/09/22 20:27 Ur Leukocyte Esterase NEGATIVE (NEGATIVE) 08/09/22 20:27 Ur Microscopic Review NOT INDICATED 08/09/22 20:27 Urine Culture Comments NOT INDICATED 08/09/22 20:27 Nasal Adenovirus (PCR) NOT DETECTED 08/17/22 16:30 Nasal B. parapertussis DNA (PCR) NOT DETECTED 08/17/22 16:30 Nasal Coronavir 229E PCR NOT DETECTED 08/17/22 16:30 Nasal Coronavir HKU1 PCR NOT DETECTED 08/17/22 16:30 Nasal Coronavir NL63 PCR NOT DETECTED 08/17/22 16:30 Nasal Coronavir OC43 PCR NOT DETECTED 08/17/22 16:30 Nasal Enterovir/Rhinovir PCR NOT DETECTED 08/17/22 16:30 Nasal Influenza B PCR NOT DETECTED 08/17/22 16:30 Nasal Influenza A PCR NOT DETECTED 08/17/22 16:30 Nasal Parainfluen 1 PCR NOT DETECTED 08/17/22 16:30 Nasal Parainfluen 2 PCR NOT DETECTED 08/17/22 16:30 Nasal Parainfluen 3 PCR NOT DETECTED 08/17/22 16:30 Nasal Parainfluen 4 PCR NOT DETECTED 08/17/22 16:30 Nasal RSV (PCR) NOT DETECTED 08/17/22 16:30 Nasal B.pertussis DNA PCR NOT DETECTED 08/17/22 16:30 Nasal C.pneumoniae (PCR) NOT DETECTED 08/17/22 16:30 Yannick Human Metapneumo PCR NOT DETECTED 08/17/22 16:30 Nasal M.pneumoniae (PCR) NOT DETECTED 08/17/22 16:30 Nasal SARS-CoV-2 (PCR) NOT DETECTED 08/17/22 16:30 Last Dose Date 08/14/2022 08/14/22 13:55 Last Dose Time 0336 08/14/22 13:55 Vancomycin Trough 16.6 ug/mL (10.0-20.0) 08/14/22 13:55 Sepsis Event Note (H) - Evaluation Current Stage of Sepsis: Ruled out
[2022-09-10] MEDS: ERTAPENEM 1 GM in SODIUM CHLORIDE 0.9% MINIBAG 100 ML IV SCH (09:47)
[2022-09-10] MEDS: LOSARTAN 50 MG TABLET PO SCH ×2 (11:14→20:38)
[2022-09-10] MEDS: NYSTATIN CREAM 15 GM TUBE TOP SCH ×2 (11:16→20:38)
--- NOTE | 2022-09-10 18:51 | PROVIDER PROGRESS NOTE ---
Assessment/Plan - Problem List (1) Chronic diabetic ulcer of left foot determined by examination Assessment/Plan: He has a Diabetic foot infection with osteomyelitis and 3 foot ulcers, he had cellulitis that has resolved. Now it is down to wound healing by good wound care and finishing 4 weeks of iv antibx. He was seen at [facility] by Dr Wren yesterday 09/09 and he is doing very well and wounds are closing quite nicely. Plan: Dr Wren is considering applying a Wound Vac this week. Dr Wren wants dressings now changed q3d, not qod; this order was changed for the nurses. If we give him 6 weeks of antibiotic therapy this would finish at the end of September. If we give him 4 weeks of antibiotic therapy, this ends as of September 18. Then we will switch him over to oral antibx for the last 2 weeks of ciprofloxacin, which will cover the bacteria we identified before. The knee scooter, that can handle 350 lbs, was purchased and is arriving (by [employer]) in 1-2 days. 2. Type 2 diabetes mellitus, uncontrolled, with complications of neuropathy, with hyperglycemia, on long-term insulin. Yesterday 09/09 he demanded to restart Metformin. Med list was reviewed and he took 850 BID During the stay he has lost about 4 kg of weight. He is in a carb controlled diet. Wound healing is occurred very nicely. Recently we decreased some of his insulin because he wAs getting hypoglycemic. He was on Lantus 40 in the morning, and Lantus 10 at night. He was getting short acting 10 units in the morning, 8 units at lunch, 8 units at dinner. Several days ago we cut back the dinner lispro dose from 8->5 units and lunch lispro dose from 8->5. Continued the 10 units with breakfast. Yesterday I decreased his Lantus from 40-30 and decreased his meal doses down to 4, 2, 2. With this his morning glucose today was up again in the high 200s Plan: Cont Metformin BID Will cont the Lantus dose down from 40 >> 30, but increase each meal dose from 4, 2, 2>> 6, 4, 4 - Current Meds Current Meds: Current Medications Generic Name Dose Route Start Last Admin Trade Name Freq PRN Reason Stop Dose Admin Acetaminophen 650 mg 08/09/22 21:56 08/23/22 05:15 Acetaminophen 325 Mg Tablet PO 650 mg Q4HR PRN Administration Pain 1 to 4, or Fever Hydrocodone Bitart/Acetaminophen 1 tab 08/09/22 21:56 08/19/22 11:45 Hydrocod/Acetam 10 Mg/325 Mg Tablet PO 1 tab Q4HR PRN Administration Pain 8 to 10 Hydrocodone Bitart/Acetaminophen 1 tab 08/09/22 21:56 09/03/22 20:06 Hydrocod/Acetam 5/325 Mg Tablet PO 1 tab Q4HR PRN Administration Pain 5 to 7 Ascorbic Acid 500 mg 08/24/22 08:00 09/10/22 07:40 Ascorbic Acid 500 Mg Tablet PO 500 mg DAILYWM ADRI Administration Carboxymethylcellulose 1 drops 08/10/22 01:01 08/22/22 17:05 Carboxymethylcellulose Ophth Drops EACHEYE 1 drops PRN PRN Administration Dry Eye Enoxaparin Sodium 40 mg 08/22/22 09:00 09/10/22 07:41 Enoxaparin 40 Mg/0.4 Ml Syringe SUBQ 40 mg BID ADRI Administration Ferrous Gluconate 324 mg 08/24/22 08:00 09/10/22 07:41 Ferrous Gluconate 324 Mg Tablet PO 324 mg DAILYWM ADRI Administration Hydrochlorothiazide 25 mg 08/17/22 09:00 09/10/22 07:41 Hydrochlorothiazide 25 Mg Tablet PO 25 mg DAILY ADRI Administration Ertapenem 1 gm/ Sodium 100 mls @ 200 mls/hr 08/20/22 12:00 09/10/22 09:47 Chloride IV 200 mls/hr DAILY ADRI Administration Ibuprofen 400 mg 08/23/22 14:27 09/06/22 13:27 Ibuprofen 400 Mg Tablet PO 400 mg Q6HR PRN Administration PAIN Insulin Glargine-yfgn 30 unit 09/10/22 09:00 09/10/22 07:42 Insulin Glargine-Yfgn 300 Unit/3 Ml Pen SUBQ 30 unit DAILY ADRI Administration Insulin Glargine-yfgn 5 unit 09/09/22 21:00 09/09/22 21:01 Insulin Glargine-Yfgn 300 Unit/3 Ml Pen SUBQ 5 unit QPM ADRI Administration Insulin Human Lispro 1 - 9 unit 08/22/22 17:00 09/10/22 16:53 Insulin Lispro 300 Unit/3 Ml Pen SUBQ Not Given 0800,1200,1700,2100 [facility] Protocol Insulin Human Lispro 4 unit 09/10/22 17:00 09/10/22 16:55 Insulin Lispro 300 Unit/3 Ml Pen SUBQ 4 unit 1700 ADRI Administration Loratadine 10 mg 08/31/22 07:44 09/01/22 05:56 Loratadine 10 Mg Tablet PO 10 mg DAILY PRN Administration ITCHING Losartan Potassium 50 mg 08/10/22 09:00 09/10/22 11:14 Losartan 50 Mg Tablet PO 50 mg BID ADRI Administration Metformin HCl 850 mg 09/09/22 17:00 09/10/22 16:58 Metformin 850 Mg Tablet PO 850 mg TIDWM ADRI Administration Metoclopramide HCl 5 mg 08/11/22 22:37 08/11/22 23:00 Metoclopramide 10 Mg/2 Ml Vial IVP 5 mg Q6HR PRN Administration NEEDED PER PROVIDER ORDERS Metoprolol Tartrate 25 mg 08/10/22 09:00 09/10/22 07:40 Metoprolol Tartrate 25 Mg Tablet PO 25 mg BID ADRI Administration Multi-Ingred Cream/Lotion/Oil/Oint 1 applic 08/22/22 15:55 08/23/22 20:49 Mineral Oil/Petrolat Ophth Oint EACHEYE 1 applic QPM PRN Administration Dry Eye Multi-Ingredient Ointment 1 applic 08/13/22 18:12 08/13/22 18:46 Zinc Oxide 20% Oint 30 Gm Tube TOP 1 applic PRN PRN Administration Skin Care Multivitamins/Minerals 1 tab 08/15/22 09:00 09/10/22 07:40 Multivitamin W/Minerals Tablet PO 1 tab DAILYWM ADRI Administration Nystatin 1 applic 09/03/22 13:00 09/10/22 11:16 Nystatin Cream 15 Gm Tube TOP 1 applic BID ADRI Administration Ondansetron HCl 4 mg 08/09/22 21:56 08/16/22 08:38 Ondansetron 4 Mg/2 Ml Vial IVP 4 mg Q6HR PRN Administration Nausea / Vomiting Pantoprazole Sodium 40 mg 08/10/22 07:00 09/10/22 05:15 Pantoprazole 40 Mg Tablet PO 40 mg QDAC ADRI Administration Systane Eye Drops 1 each 08/24/22 16:00 09/09/22 21:03 EACHEYE 1 each PRN PRN Administration DRY EYE Saccharomyces Boulardii 250 mg 08/17/22 17:00 09/10/22 16:58 Saccharomyces Boulardii 250 Mg Capsule PO 250 mg BIDWM ADRI Administration Sodium Chloride 10 ml 08/09/22 21:56 09/09/22 16:58 Sodium Chloride Flush 0.9% 10 Ml Syringe IVP 10 ml PRN PRN Administration NEEDED PER PROVIDER ORDERS Sodium Chloride 10 ml 08/10/22 01:00 09/10/22 16:56 Sodium Chloride Flush 0.9% 10 Ml Syringe IVP 10 ml 0100,0900,1700 ADRI Administration Sodium Chloride 20 ml 08/25/22 03:57 08/30/22 05:40 Sodium Chloride Flush 0.9% 10 Ml Syringe IVP 20 ml PRN PRN Administration After Blood Draw Throat Lozenges 1 lozenge 08/10/22 01:01 08/17/22 16:28 Benzocaine/Menthol Lozenge MM 1 lozenge Q2HR PRN Administration Throat pain - Lab Result Fish Bone Diagrams: 09/05/22 06:23 09/05/22 06:23 - Additional Planning My Orders: My Active Orders 09/09/22 21:00 Insulin Glargine-Yfgn [Semglee] 5 unit SUBQ QPM 09/10/22 09:00 Insulin Glargine-Yfgn [Semglee] 30 unit SUBQ DAILY 09/10/22 10:14 Miscellaenous Nursing Order [RC] QSHIFT 09/10/22 17:00 Insulin Lispro [Humalog Kwikpen U-100] 4 unit SUBQ 1700 09/11/22 08:00 Insulin Lispro [Humalog Kwikpen U-100] 6 unit SUBQ 0800 09/11/22 12:00 Insulin Lispro [Humalog Kwikpen U-100] 4 unit SUBQ 1200 Subjective - Subjective Patient Reports: Resting Comfortably, No Complaints Objective Vital Signs: Vital Signs - 24 hr 09/09/22 09/10/22 09/10/22 20:56 00:00 07:16 Temperature 36.3 C L 36.8 C Heart Rate [ 77 Brachial] Heart Rate [ 80 Monitoring electrodes] Respiratory 18 16 Rate Blood Pressure 110/58 L Blood Pressure 119/96 H [Left Brachial artery] Blood Pressure 115/69 [Right Brachial artery] O2 Saturation 100 98 09/10/22 09/10/22 07:40 15:37 Temperature 36.5 C Heart Rate [ 94 Brachial] Heart Rate [ Monitoring electrodes] Respiratory 16 Rate Blood Pressure 119/69 Blood Pressure 121/67 [Left Brachial artery] Blood Pressure [Right Brachial artery] O2 Saturation 100 Oxygen O2 Source Room air I&O (Last 24 Hrs): Intake and Output Totals x24h 09/08/22 09/09/22 09/10/22 23:59 23:59 23:59 Intake Total 1380 2260 1500 Balance 1380 2260 1500 General: Alert, Oriented x3, Other (Obese) HEENT: Mucous membr. moist/pink Neck: Supple Neuro: Alert Cardiovascular: Regular rate Respiratory: No respiratory distress Abdomen: Soft, Other (Obese) Extremities: No clubbing, No edema, Other (L foot and toes bandaged) - Results Results: Laboratory Results WBC 7.7 x10^3/uL (4.8-10.8) 09/05/22 06: RBC 4.06 10^6/uL (4.70-6.10) L 09/05/22 06:23 Hgb 10.2 g/dL (14.0-18.0) L 09/05/22 06:23 Hct 33.1 % (42.0-52.0) L 09/05/22 06:23 MCV 81.5 fL (80.0-94.0) 09/05/22 06: MCH 25.1 pg (27.0-31.0) L 09/05/22 06:23 MCHC 30.8 g/dL (32.0-36.0) L 09/05/22 06:23 RDW 13.9 % (12.0-15.0) 09/05/22 06:23 Plt Count 331 10^3/uL (130-450) 09/05/22 06:23 MPV 9.3 fL (7.4-11.4) 09/05/22 06:23 Reticulocyte % (Auto) 1.17 % (0.5-2.3) 08/24/22 04:19 Neut # (Auto) 5.1 10^3/uL (1.5-6.6) 09/05/22 06:23 Lymph # (Auto) 1.7 10^3/uL (1.5-3.5) 09/05/22 06:23 [place] # (Auto) 0.6 10^3/uL (0.0-1.0) 09/05/22 06:23 Eos # (Auto) 0.3 10^3/uL (0.0-0.7) 09/05/22 06:23 Baso # (Auto) 0.0 10^3/uL (0.0-0.1) 09/05/22 06:23 Absolute Nucleated RBC 0.00 x10^3/uL 09/05/22 06:23 Total Counted 100 08/09/22 19:59 Band Neuts % (Manual) 2 % (0-10) 08/09/22 19:59 Abnorm Lymph % (Manual) 0 % 08/09/22 19:59 Nucleated RBC % 0.0 /100WBC 09/05/22 06:23 Neutrophils # (Manual) 18.7 10^3/uL (1.5-6.6) H 08/09/22 19:59 Lymphocytes # (Manual) 1.3 10^3/uL (1.5-3.5) L 08/09/22 19:59 Monocytes # (Manual) 1.3 10^3/uL (0.0-1.0) H 08/09/22 19:59 Eosinophils # (Manual) 0.0 10^3/uL (0-0.7) 08/09/22 19:59 Basophils # (Manual) 0.0 10^3/uL (0-0.1) 08/09/22 19:59 Differential Comment MANUAL DIFFERENTIAL 08/09/22 19:59 WBC Morphology 2+ TOXIC GRANULATION (NORMAL) 08/09/22 19:59 Platelet Estimate NORMAL (130-450,000) (NORMAL) 08/09/22 19:59 Platelet Morphology NORMAL APPEARANCE (NORMAL) 08/09/22 19:59 RBC Morph Micro Appear NORMAL APPEARANCE (NORMAL) 08/09/22 19:59 ESR 64 mm/Hr (0-15) H 08/09/22 19:59 Absolute Retic 0.046 10^6/uL (0.020-0.110) 08/24/22 04:19 Sodium 139 mmol/L (135-145) 09/05/22 06:23 Potassium 4.1 mmol/L (3.5-5.0) 09/05/22 06:23 Chloride 105 mmol/L (101-111) 09/05/22 06:23 Carbon Dioxide 26 mmol/L (21-32) 09/05/22 06:23 Anion Gap 8.0 (6-13) 09/05/22 06:23 BUN 32 mg/dL (6-20) H 09/05/22 06:23 Creatinine 0.8 mg/dL (0.6-1.2) 09/05/22 06:23 Estimated GFR (MDRD) 107 (>89) 09/05/22 06:23 Glucose 148 mg/dL (70-100) H 09/05/22 06:23 POC Whole Bld Glucose 140 mg/dL (70 - 100) H 09/10/22 16:43 Estimat Average Glucose 298 mg/dL (70-100) H 08/10/22 06:26 Hemoglobin A1c % 12.0 % (4.27-6.07) H 08/10/22 06:26 Lactic Acid 1.4 mmol/L (0.5-2.2) 08/09/22 21:46 Calcium 8.7 mg/dL (8.5-10.3) 09/05/22 06:23 Magnesium 2.4 mg/dL (1.7-2.8) 08/30/22 05:45 Iron 24 ug/dL (45-182) L 08/24/22 04:19 Iron 27 ug/dL (45-182) L 08/24/22 04:19 TIBC 273 ug/dL (250-450) 08/24/22 04:19 % Saturation 9 % (20-50) L 08/24/22 04:19 Transferrin 195 mg/dL (180-329) 08/24/22 04:19 Ferritin 95.4 ng/mL (23.9-336.2) 08/24/22 04:19 Total Bilirubin 1.4 mg/dL (0.2-1.0) H 08/10/22 06:26 AST 22 IU/L (10-42) 08/10/22 06:26 ALT 21 IU/L (10-60) 08/10/22 06:26 Alkaline Phosphatase 113 IU/L (42-121) 08/10/22 06:26 Lactate Dehydrogenase 100 IU/L (91-225) 08/24/22 04:19 C-Reactive Protein 3.4 mg/dL (0-1.0) H 08/31/22 06:35 Total Protein 6.6 g/dL (6.7-8.2) L 08/10/22 06:26 Albumin 2.7 g/dL (3.2-5.5) L 08/10/22 06:26 Globulin 3.9 g/dL (2.1-4.2) 08/10/22 06:26 Albumin/Globulin Ratio 0.7 (1.0-2.2) L 08/10/22 06:26 Triglycerides 136 mg/dL (-149) 08/10/22 06:26 Cholesterol 153 mg/dL (-199) 08/10/22 06:26 LDL Cholesterol, Calc 97 mg/dL (-129) 08/10/22 06:26 VLDL Cholesterol 27 mg/dL 08/10/22 06:26 HDL Cholesterol 29 mg/dL (60-) L 08/10/22 06:26 LDL/HDL Ratio 3.3 (<3.6) 08/10/22 06:26 Cholesterol/HDL Ratio 5.3 (<5.0) 08/10/22 06:26 Lipase 23 U/L (22-51) 08/09/22 19:59 Vitamin B12 201 pg/mL (180-914) 08/24/22 04:19 Procalcitonin 0.84 ng/mL (<0.5) H 08/09/22 21:46 TSH 0.84 uIU/mL (0.34-5.60) 08/10/22 06:26 Urine Color DARK YELLOW 08/09/22 20:27 Urine Clarity CLEAR (CLEAR) 08/09/22 20:27 Urine pH 5.5 PH (5.0-7.5) 08/09/22 20:27 Ur Specific [employer] 1.015 (1.002-1.030) 08/09/22 20:27 Urine Protein NEGATIVE mg/dL (NEGATIVE) 08/09/22 20:27 Urine Glucose (UA) >=1000 mg/dL (NEGATIVE) H 08/09/22 20:27 Urine Ketones TRACE mg/dL (NEGATIVE) 08/09/22 20:27 Urine Occult Blood TRACE-INTA (NEGATIVE) 08/09/22 20:27 Urine Nitrite NEGATIVE (NEGATIVE) 08/09/22 20:27 Urine Bilirubin SMALL (NEGATIVE) H 08/09/22 20:27 Urine Urobilinogen 2 E.U./dL (NORMAL) H 08/09/22 20:27 Ur Leukocyte Esterase NEGATIVE (NEGATIVE) 08/09/22 20:27 Ur Microscopic Review NOT INDICATED 08/09/22 20:27 Urine Culture Comments NOT INDICATED 08/09/22 20:27 Nasal Adenovirus (PCR) NOT DETECTED 08/17/22 16:30 Nasal B. parapertussis DNA (PCR) NOT DETECTED 08/17/22 16:30 Nasal Coronavir 229E PCR NOT DETECTED 08/17/22 16:30 Nasal Coronavir HKU1 PCR NOT DETECTED 08/17/22 16:30 Nasal Coronavir NL63 PCR NOT DETECTED 08/17/22 16:30 Nasal Coronavir OC43 PCR NOT DETECTED 08/17/22 16:30 Nasal Enterovir/Rhinovir PCR NOT DETECTED 08/17/22 16:30 Nasal Influenza B PCR NOT DETECTED 08/17/22 16:30 Nasal Influenza A PCR NOT DETECTED 08/17/22 16:30 Nasal Parainfluen 1 PCR NOT DETECTED 08/17/22 16:30 Nasal Parainfluen 2 PCR NOT DETECTED 08/17/22 16:30 Nasal Parainfluen 3 PCR NOT DETECTED 08/17/22 16:30 Nasal Parainfluen 4 PCR NOT DETECTED 08/17/22 16:30 Nasal RSV (PCR) NOT DETECTED 08/17/22 16:30 Nasal B.pertussis DNA PCR NOT DETECTED 08/17/22 16:30 Nasal C.pneumoniae (PCR) NOT DETECTED 08/17/22 16:30 Yannick Human Metapneumo PCR NOT DETECTED 08/17/22 16:30 Nasal M.pneumoniae (PCR) NOT DETECTED 08/17/22 16:30 Nasal SARS-CoV-2 (PCR) NOT DETECTED 08/17/22 16:30 Last Dose Date 08/14/2022 08/14/22 13:55 Last Dose Time 0336 08/14/22 13:55 Vancomycin Trough 16.6 ug/mL (10.0-20.0) 08/14/22 13:55 Sepsis Event Note (H) - Evaluation Current Stage of Sepsis: Ruled out
[2022-09-11] MEDS: SODIUM CHLORIDE FLUSH 0.9% 10 ML SYRINGE IVP SCH ×4 (00:03→21:04)
[2022-09-11] MEDS: PANTOPRAZOLE 40 MG TABLET PO SCH (05:23)
[2022-09-11] MEDS: SACCHAROMYCES BOULARDII 250 MG CAPSULE PO SCH ×2 (08:45→17:48)
[2022-09-11] MEDS: hydroCHLOROthiazide 25 MG TABLET PO SCH (08:45)
[2022-09-11] MEDS: LOSARTAN 50 MG TABLET PO SCH ×2 (08:45→20:56)
[2022-09-11] MEDS: MULTIVITAMIN W/MINERALS TABLET PO SCH (08:45)
[2022-09-11] MEDS: ASCORBIC ACID 500 MG TABLET PO SCH (08:45)
[2022-09-11] MEDS: metFORMIN 850 MG TABLET PO SCH ×3 (08:45→17:48)
[2022-09-11] MEDS: FERROUS GLUCONATE 324 MG TABLET PO SCH (08:45)
[2022-09-11] MEDS: METOPROLOL TARTRATE 25 MG TABLET PO SCH ×2 (08:46→20:56)
[2022-09-11] MEDS: INSULIN LISPRO 300 UNIT/3 ML PEN SUBQ SCH ×7 (08:47→20:54)
[2022-09-11] MEDS: INSULIN GLARGINE-YFGN 300 UNIT/3 ML PEN SUBQ SCH ×2 (08:50→20:55)
[2022-09-11] MEDS: ENOXAPARIN 40 MG/0.4 ML SYRINGE SUBQ SCH ×2 (08:53→20:53)
[2022-09-11] MEDS: ERTAPENEM 1 GM in SODIUM CHLORIDE 0.9% MINIBAG 100 ML IV SCH (08:54)
[2022-09-11] MEDS: NYSTATIN CREAM 15 GM TUBE TOP SCH ×2 (08:56→21:04)
--- NOTE | 2022-09-11 14:08 | PROVIDER PROGRESS NOTE ---
Assessment/Plan - Problem List (1) Chronic diabetic ulcer of left foot determined by examination Assessment/Plan: He has a Diabetic foot infection with osteomyelitis and 3 foot ulcers, and he had cellulitis that has resolved. Now it is down to wound healing by good wound care and finishing 4 weeks of iv antibx. He was seen at [facility] by Dr Wren 09/09 and he is doing very well and wounds are closing quite nicely. Plan: Dr Wren is considering applying a Wound Vac this week. Dr Wren wants dressings now changed q3d, not qod; this order was changed for the nurses. If we give him 6 weeks of antibiotic therapy this would finish at the end of September. If we give him 4 weeks of antibiotic therapy, this ends September 18 and then we will switch him over to oral antibx for the last 2 weeks of ciprofl oxacin, which will cover the bacteria we identified before. The knee scooter, that can handle 350 lbs, was purchased and is arriving (by [employer]) in 1-2 days. 2. Type 2 diabetes mellitus, uncontrolled, with complications of neuropathy, with hyperglycemia, on long-term insulin. On 09/09 he demanded to restart Metformin. Med list was reviewed and he took 850 BID and it was restarted. During the stay he has lost about 4 kg of weight. He is in a carb controlled diet. Wound healing has occurred very nicely. We cut back the dinner lispro dose from 8->5 units and lunch lispro dose from 8->5. Continued the 10 units with breakfast. And on 09/09, I decreased his am Lantus from 40 to 30 and decreased his meal doses down to 4, 2, 2, but glucose thalia to the high 200s. Yesterday 09/10, I continued the am Lantus dose of 30, but increase each meal dose from 4, 2, 2>> 6, 4, 4. All labs were reviewed. With that schedule, his glu are now 140-209. Plan: Cont Metformin BID Continue Lantus 30 in am and mealtime Lispro at 6, 4, 4. - Current Meds Current Meds: Current Medications Generic Name Dose Route Start Last Admin Trade Name Freq PRN Reason Stop Dose Admin Acetaminophen 650 mg 08/09/22 21:56 08/23/22 05:15 Acetaminophen 325 Mg Tablet PO 650 mg Q4HR PRN Administration Pain 1 to 4, or Fever Hydrocodone Bitart/Acetaminophen 1 tab 08/09/22 21:56 08/19/22 11:45 Hydrocod/Acetam 10 Mg/325 Mg Tablet PO 1 tab Q4HR PRN Administration Pain 8 to 10 Hydrocodone Bitart/Acetaminophen 1 tab 08/09/22 21:56 09/03/22 20:06 Hydrocod/Acetam 5/325 Mg Tablet PO 1 tab Q4HR PRN Administration Pain 5 to 7 Ascorbic Acid 500 mg 08/24/22 08:00 09/11/22 08:45 Ascorbic Acid 500 Mg Tablet PO 500 mg DAILYWM ADRI Administration Carboxymethylcellulose 1 drops 08/10/22 01:01 08/22/22 17:05 Carboxymethylcellulose Ophth Drops EACHEYE 1 drops PRN PRN Administration Dry Eye Enoxaparin Sodium 40 mg 08/22/22 09:00 09/11/22 08:53 Enoxaparin 40 Mg/0.4 Ml Syringe SUBQ 40 mg BID ADRI Administration Ferrous Gluconate 324 mg 08/24/22 08:00 09/11/22 08:45 Ferrous Gluconate 324 Mg Tablet PO 324 mg DAILYWM ADRI Administration Hydrochlorothiazide 25 mg 08/17/22 09:00 09/11/22 08:45 Hydrochlorothiazide 25 Mg Tablet PO 25 mg DAILY ADRI Administration Ertapenem 1 gm/ Sodium 100 mls @ 200 mls/hr 08/20/22 12:00 09/11/22 08:54 Chloride IV 200 mls/hr DAILY ADRI Administration Ibuprofen 400 mg 08/23/22 14:27 09/06/22 13:27 Ibuprofen 400 Mg Tablet PO 400 mg Q6HR PRN Administration PAIN Insulin Glargine-yfgn 30 unit 09/10/22 09:00 09/11/22 08:50 Insulin Glargine-Yfgn 300 Unit/3 Ml Pen SUBQ 30 unit DAILY ADRI Administration Insulin Glargine-yfgn 5 unit 09/09/22 21:00 09/10/22 20:44 Insulin Glargine-Yfgn 300 Unit/3 Ml Pen SUBQ 5 unit QPM ADRI Administration Insulin Human Lispro 1 - 9 unit 08/22/22 17:00 09/11/22 12:17 Insulin Lispro 300 Unit/3 Ml Pen SUBQ 1 unit 0800,1200,1700,2100 ADRI Administration Protocol Insulin Human Lispro 6 unit 09/11/22 08:00 09/11/22 08:49 Insulin Lispro 300 Unit/3 Ml Pen SUBQ 6 unit 0800 ADRI Administration Insulin Human Lispro 4 unit 09/11/22 12:00 09/11/22 12:18 Insulin Lispro 300 Unit/3 Ml Pen SUBQ 4 unit 1200 ADRI Administration Insulin Human Lispro 4 unit 09/10/22 17:00 09/10/22 16:55 Insulin Lispro 300 Unit/3 Ml Pen SUBQ 4 unit 1700 ADRI Administration Loratadine 10 mg 08/31/22 07:44 09/01/22 05:56 Loratadine 10 Mg Tablet PO 10 mg DAILY PRN Administration ITCHING Losartan Potassium 50 mg 08/10/22 09:00 09/11/22 08:45 Losartan 50 Mg Tablet PO 50 mg BID ADRI Administration Metformin HCl 850 mg 09/09/22 17:00 09/11/22 12:17 Metformin 850 Mg Tablet PO 850 mg TIDWM ADRI Administration Metoclopramide HCl 5 mg 08/11/22 22:37 08/11/22 23:00 Metoclopramide 10 Mg/2 Ml Vial IVP 5 mg Q6HR PRN Administration NEEDED PER PROVIDER ORDERS Metoprolol Tartrate 25 mg 08/10/22 09:00 09/11/22 08:46 Metoprolol Tartrate 25 Mg Tablet PO 25 mg BID ADRI Administration Multi-Ingred Cream/Lotion/Oil/Oint 1 applic 08/22/22 15:55 08/23/22 20:49 Mineral Oil/Petrolat Ophth Oint EACHEYE 1 applic QPM PRN Administration Dry Eye Multi-Ingredient Ointment 1 applic 08/13/22 18:12 08/13/22 18:46 Zinc Oxide 20% Oint 30 Gm Tube TOP 1 applic PRN PRN Administration Skin Care Multivitamins/Minerals 1 tab 08/15/22 09:00 09/11/22 08:45 Multivitamin W/Minerals Tablet PO 1 tab DAILYWM ADRI Administration Nystatin 1 applic 09/03/22 13:00 09/11/22 08:56 Nystatin Cream 15 Gm Tube TOP 1 applic BID ADRI Administration Ondansetron HCl 4 mg 08/09/22 21:56 08/16/22 08:38 Ondansetron 4 Mg/2 Ml Vial IVP 4 mg Q6HR PRN Administration Nausea / Vomiting Pantoprazole Sodium 40 mg 08/10/22 07:00 09/11/22 05:23 Pantoprazole 40 Mg Tablet PO 40 mg QDAC ADRI Administration Systane Eye Drops 1 each 08/24/22 16:00 09/09/22 21:03 EACHEYE 1 each PRN PRN Administration DRY EYE Saccharomyces Boulardii 250 mg 08/17/22 17:00 09/11/22 08:45 Saccharomyces Boulardii 250 Mg Capsule PO 250 mg BIDWM ADRI Administration Sodium Chloride 10 ml 08/09/22 21:56 09/09/22 16:58 Sodium Chloride Flush 0.9% 10 Ml Syringe IVP 10 ml PRN PRN Administration NEEDED PER PROVIDER ORDERS Sodium Chloride 10 ml 08/10/22 01:00 09/11/22 08:56 Sodium Chloride Flush 0.9% 10 Ml Syringe IVP 10 ml 0100,0900,1700 ADRI Administration Sodium Chloride 20 ml 08/25/22 03:57 08/30/22 05:40 Sodium Chloride Flush 0.9% 10 Ml Syringe IVP 20 ml PRN PRN Administration After Blood Draw Throat Lozenges 1 lozenge 08/10/22 01:01 08/17/22 16:28 Benzocaine/Menthol Lozenge MM 1 lozenge Q2HR PRN Administration Throat pain - Lab Result Fish Bone Diagrams: 09/05/22 06:23 09/05/22 06:23 - Additional Planning My Orders: My Active Orders 09/10/22 17:00 Insulin Lispro [Humalog Kwikpen U-100] 4 unit SUBQ 1700 09/11/22 08:00 Insulin Lispro [Humalog Kwikpen U-100] 6 unit SUBQ 0800 09/11/22 12:00 Insulin Lispro [Humalog Kwikpen U-100] 4 unit SUBQ 1200 Subjective - Subjective Patient Reports: Resting Comfortably, No Complaints Objective Vital Signs: Vital Signs - 24 hr 09/10/22 09/10/22 09/11/22 15:37 20:38 00:00 Temperature 36.5 C 36.9 C Heart Rate [ 94 74 Brachial] Respiratory 16 16 Rate Blood Pressure 122/74 Blood Pressure 121/67 116/75 [Left Brachial artery] Blood Pressure [Right Radial artery] O2 Saturation 100 98 09/11/22 09/11/22 09/11/22 08:00 08:46 10:31 Temperature 36.5 C Heart Rate [ 73 Brachial] Respiratory 20 Rate Blood Pressure 114/74 Blood Pressure 114/67 [Left Brachial artery] Blood Pressure 131/81 H [Right Radial artery] O2 Saturation 98 Oxygen O2 Source Room air I&O (Last 24 Hrs): Intake and Output Totals x24h 09/09/22 09/10/22 09/11/22 23:59 23:59 23:59 Intake Total 2262099 460 Output Total 1 Balance 2259 2098 460 General: Alert, Oriented x3 HEENT: Mucous membr. moist/pink Neck: Supple Neuro: Alert Cardiovascular: Regular rate Respiratory: No respiratory distress Abdomen: Soft, Other (obese) Extremities: No clubbing, No edema, Other (L foot and toes bandaged) - Results Results: Laboratory Results WBC 7.7 x10^3/uL (4.8-10.8) 09/05/22 06:23 RBC 4.06 10^6/uL (4.70-6.10) L 09/05/22 06:23 Hgb 10.2 g/dL (14.0-18.0) L 09/05/22 06:23 Hct 33.1 % (42.0-52.0) L 09/05/22 06:23 MCV 81.5 fL (80.0-94.0) 09/05/22 06:23 MCH 25.1 pg (27.0-31.0) L 09/05/22 06: MCHC 30.8 g/dL (32.0-36.0) L 09/05/22 06:23 RDW 13.9 % (12.0-15.0) 09/05/22 06:23 Plt Count 331 10^3/uL (130-450) 09/05/22 06:23 MPV 9.3 fL (7.4-11.4) 09/05/22 06:23 Reticulocyte % (Auto) 1.17 % (0.5-2.3) 08/24/22 04:19 Neut # (Auto) 5.1 10^3/uL (1.5-6.6) 09/05/22 06:23 Lymph # (Auto) 1.7 10^3/uL (1.5-3.5) 09/05/22 06:23 Dare # (Auto) 0.6 10^3/uL (0.0-1.0) 09/05/22 06:23 Eos # (Auto) 0.3 10^3/uL (0.0-0.7) 09/05/22 06:23 Baso # (Auto) 0.0 10^3/uL (0.0-0.1) 09/05/22 06:23 Absolute Nucleated RBC 0.00 x10^3/uL 09/05/22 06:23 Total Counted 100 08/09/22 19:59 Band Neuts % (Manual) 2 % (0-10) 08/09/22 19:59 Abnorm Lymph % (Manual) 0 % 08/09/22 19:59 Nucleated RBC % 0.0 /100WBC 09/05/22 06:23 Neutrophils # (Manual) 18.7 10^3/uL (1.5-6.6) H 08/09/22 19:59 Lymphocytes # (Manual) 1.3 10^3/uL (1.5-3.5) L 08/09/22 19:59 Monocytes # (Manual) 1.3 10^3/uL (0.0-1.0) H 08/09/22 19:59 Eosinophils # (Manual) 0.0 10^3/uL (0-0.7) 08/09/22 19:59 Basophils # (Manual) 0.0 10^3/uL (0-0.1) 08/09/22 19:59 Differential Comment MANUAL DIFFERENTIAL 08/09/22 19:59 WBC Morphology 2+ TOXIC GRANULATION (NORMAL) 08/09/22 19:59 Platelet Estimate NORMAL (130-450,000) (NORMAL) 08/09/22 19:59 Platelet Morphology NORMAL APPEARANCE (NORMAL) 08/09/22 19:59 RBC Morph Micro Appear NORMAL APPEARANCE (NORMAL) 08/09/22 19:59 ESR 64 mm/Hr (0-15) H 08/09/22 19:59 Absolute Retic 0.046 10^6/uL (0.020-0.110) 08/24/22 04:19 Sodium 139 mmol/L (135-145) 09/05/22 06:23 Potassium 4.1 mmol/L (3.5-5.0) 09/05/22 06:23 Chloride 105 mmol/L (101-111) 09/05/22 06:23 Carbon Dioxide 26 mmol/L (21-32) 09/05/22 06:23 Anion Gap 8.0 (6-13) 09/05/22 06:23 BUN 32 mg/dL (6-20) H 09/05/22 06:23 Creatinine 0.8 mg/dL (0.6-1.2) 09/05/22 06:23 Estimated GFR (MDRD) 107 (>89) 09/05/22 06:23 Glucose 148 mg/dL (70-100) H 09/05/22 06:23 POC Whole Bld Glucose 171 mg/dL (70 - 100) H 09/11/22 11:39 Estimat Average Glucose 298 mg/dL (70-100) H 08/10/22 06:26 Hemoglobin A1c % 12.0 % (4.27-6.07) H 08/10/22 06:26 Lactic Acid 1.4 mmol/L (0.5-2.2) 08/09/22 21:46 Calcium 8.7 mg/dL (8.5-10.3) 09/05/22 06:23 Magnesium 2.4 mg/dL (1.7-2.8) 08/30/22 05:45 Iron 24 ug/dL (45-182) L 08/24/22 04:19 Iron 27 ug/dL (45-182) L 08/24/22 04:19 TIBC 273 ug/dL (250-450) 08/24/22 04:19 % Saturation 9 % (20-50) L 08/24/22 04:19 Transferrin 195 mg/dL (180-329) 08/24/22 04:19 Ferritin 95.4 ng/mL (23.9-336.2) 08/24/22 04:19 Total Bilirubin 1.4 mg/dL (0.2-1.0) H 08/10/22 06:26 AST 22 IU/L (10-42) 08/10/22 06:26 ALT 21 IU/L (10-60) 08/10/22 06:26 Alkaline Phosphatase 113 IU/L (42-121) 08/10/22 06:26 Lactate Dehydrogenase 100 IU/L (91-225) 08/24/22 04:19 C-Reactive Protein 3.4 mg/dL (0-1.0) H 08/31/22 06:35 Total Protein 6.6 g/dL (6.7-8.2) L 08/10/22 06:26 Albumin 2.7 g/dL (3.2-5.5) L 08/10/22 06:26 Globulin 3.9 g/dL (2.1-4.2) 08/10/22 06:26 Albumin/Globulin Ratio 0.7 (1.0-2.2) L 08/10/22 06:26 Triglycerides 136 mg/dL (-149) 08/10/22 06:26 Cholesterol 153 mg/dL (-199) 08/10/22 06:26 LDL Cholesterol, Calc 97 mg/dL (-129) 08/10/22 06:26 VLDL Cholesterol 27 mg/dL 08/10/22 06:26 HDL Cholesterol 29 mg/dL (60-) L 08/10/22 06:26 LDL/HDL Ratio 3.3 (<3.6) 08/10/22 06:26 Cholesterol/HDL Ratio 5.3 (<5.0) 08/10/22 06:26 Lipase 23 U/L (22-51) 08/09/22 19:59 Vitamin B12 201 pg/mL (180-914) 08/24/22 04:19 Procalcitonin 0.84 ng/mL (<0.5) H 08/09/22 21:46 TSH 0.84 uIU/mL (0.34-5.60) 08/10/22 06:26 Urine Color DARK YELLOW 08/09/22 20:27 Urine Clarity CLEAR (CLEAR) 08/09/22 20:27 Urine pH 5.5 PH (5.0-7.5) 08/09/22 20:27 Ur Specific [place] 1.015 (1.002-1.030) 08/09/22 20:27 Urine Protein NEGATIVE mg/dL (NEGATIVE) 08/09/22 20:27 Urine Glucose (UA) >=1000 mg/dL (NEGATIVE) H 08/09/22 20:27 Urine Ketones TRACE mg/dL (NEGATIVE) 08/09/22 20:27 Urine Occult Blood TRACE-INTA (NEGATIVE) 08/09/22 20:27 Urine Nitrite NEGATIVE (NEGATIVE) 08/09/22 20:27 Urine Bilirubin SMALL (NEGATIVE) H 08/09/22 20:27 Urine Urobilinogen 2 E.U./dL (NORMAL) H 08/09/22 20:27 Ur Leukocyte Esterase NEGATIVE (NEGATIVE) 08/09/22 20:27 Ur Microscopic Review NOT INDICATED 08/09/22 20:27 Urine Culture Comments NOT INDICATED 08/09/22 20:27 Nasal Adenovirus (PCR) NOT DETECTED 08/17/22 16:30 Nasal B. parapertussis DNA (PCR) NOT DETECTED 08/17/22 16:30 Nasal Coronavir 229E PCR NOT DETECTED 08/17/22 16:30 Nasal Coronavir HKU1 PCR NOT DETECTED 08/17/22 16:30 Nasal Coronavir NL63 PCR NOT DETECTED 08/17/22 16:30 Nasal Coronavir OC43 PCR NOT DETECTED 08/17/22 16:30 Nasal Enterovir/Rhinovir PCR NOT DETECTED 08/17/22 16:30 Nasal Influenza B PCR NOT DETECTED 08/17/22 16:30 Nasal Influenza A PCR NOT DETECTED 08/17/22 16:30 Nasal Parainfluen 1 PCR NOT DETECTED 08/17/22 16:30 Nasal Parainfluen 2 PCR NOT DETECTED 08/17/22 16:30 Nasal Parainfluen 3 PCR NOT DETECTED 08/17/22 16:30 Nasal Parainfluen 4 PCR NOT DETECTED 08/17/22 16:30 Nasal RSV (PCR) NOT DETECTED 08/17/22 16:30 Nasal B.pertussis DNA PCR NOT DETECTED 08/17/22 16:30 Nasal C.pneumoniae (PCR) NOT DETECTED 08/17/22 16:30 Yannick Human Metapneumo PCR NOT DETECTED 08/17/22 16:30 Nasal M.pneumoniae (PCR) NOT DETECTED 08/17/22 16:30 Nasal SARS-CoV-2 (PCR) NOT DETECTED 08/17/22 16:30 Last Dose Date 08/14/2022 08/14/22 13:55 Last Dose Time 03308/14/22 13:55 Vancomycin Trough 16.6 ug/mL (10.0-20.0) 08/14/22 13:55 Sepsis Event Note (H) - Evaluation Current Stage of Sepsis: Ruled out
--- NOTE | 2022-09-11 16:39 | WOUND CARE PROGRESS NOTE ---
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 (2) Non-pressure chronic ulcer of other part of left foot with fat layer exposed Assessment/Plan: 42-year-old male hospitalized for diabetic foot ulcerations complicated by osteomyelitis, abscess/phlegmon, cellulitis, and possible septic joint. No detectable signs of infection on exam and patient continues on Ertapenem. His WBC count remains normal. His CRP had been hovering around 3 which is still elevated. He remains at high risk for amputation. He has complex wounds. His distal lateral left foot ulcer tunnels extensively. He has protracted course of wound healing in front of him. Status: Stable. His main ulcer tunnels extensively. Wounds cleansed with normal saline and Anasept. Wound VAC placed using bridging technique. Ulcer #1: 1 piece of black foam; Ulcer #2: 1 piece of black foam to wound bed. 3 pieces of white foam (one into each tunnel); Ulcer #3: 1 piece of black foam. Pressure set to -125 mmHg, continuous suction. Offloading: Total NWB L foot. Await delivery of knee scooter. Goals: Resolve osteomyelitis. Remove necrotic/devitalized tissue Redistribute pressure Repair/Regenerate tissue. Manage co-morbidities Limb salvage Appropriate follow up instructions were given. He was given a follow-up appointment in the outpatient [facility] on 09/15 for VAC change. Sooner, PRN. - Home Meds/Allergies Allergies No Known Drug Allergies Allergy (Verified 08/12/22 08:50) Home Medications Losartan [Cozaar] 50 mg PO BID 08/09/22 [History Confirmed 08/09/22] Omeprazole 40 mg PO DAILY 08/09/22 [History Confirmed 08/09/22] hydroCHLOROthiazide [Hydrodiuril] 25 mg PO DAILY 08/10/22 [History Confirmed 08/10/22] metFORMIN [Glucophage] 850 mg PO TIDWM 08/10/22 [History Confirmed 08/10/22] - Additional Planning Condition/Complexity: Stable Plan Discussed with:: Patient Objective Comments/Notes: Constitutional: NAD. Alert and conversant. Respiratory: Normal respiratory effort. Cardiovascular: Regular rate. The left foot edema is now minimal. Musculoskeletal: No prior amputations. No foot/toe deformities. Neurological: L foot drop. Loss of protective sensation noted bilateral feet to Axtell Bradley monofilament testing. Previously reviewed: Labs: WBC has normalized. H&H show stable mild anemia. Platelet count has normalized. GFR normal. CRP without updated measurement. Previously stable in the 3's. Micro: 08/12/22: Wound culture grew klebsiella oxytoca, GBS, and E. faecalis. Anaerobic cultures NG. Anaerobic gram stain did show some GPC and WBCs. 08/09/22: Blood culture no growth x 2. Imagin08/20/22: L foot MRI WO/W contrast demonstrated increased nonenhancement of the intrinsic foot musculature surrounding the fifth metatarsal suspicious for worsening infectious involvement with possible evolving necrosis vs ischemia. Otherwise, there were no significant changes compared to 08/13/22. 08/13/22: L foot MRI WO/W contrast demonstrated findings compatible with osteomyelitis of the 5th metatarsal head and shaft and 5th proximal phalanx, possible septic arthritis in the 5th MTPJ, findings compatible with a 7.8 x 2.1 x 6.2 cm abscess/phlegmon in the dorsal aspect of the forefoot tracking lateral and plantar to the 5th metatarsal, and findings consistent with cellulitis. - Wound Assessment Wound #1 is a full-thickness diabetic foot ulcer of the left lateral foot at the level of the fifth metatarsal head. It measures 2.0 x 2.2 x 0.7 cm (L x W x D). There is extensive tunneling (7:00 with distance of 1.3 cm, 10:00 with distance 4.5 cm, and 11:00 with distance 2.9 cm). There is light yellow serous drainage noted which has no odor. The patient reports a wound pain level 0/10. The wound margin is unattached. The wound bed has no epithelialization, no eschar, yes slough, yes firm red granulation. The periwound skin texture, moisture, temperature, and color are normal. Exposed structures: Adipose. Wound #2 is a full-thickness diabetic foot ulcer of the left plantar foot at the level of the fifth metatarsal head. It measures 2.3 x 1.5 x 0.2 (L x W x D). There is no undermining, tunneling, or sinus tracking. There is light yellow serous drainage noted which has no odor. The patient reports a wound pain level 0/10. The wound margin is callused and unattached. The wound bed has no epithelialization, no eschar, yes slough, and yes firm red granulation. The periwound skin texture, moisture, temperature, and color are normal. Exposed structures: Adipose. Wound #3 is a full-thickness diabetic foot ulcer of the left lateral foot, proximal. It measures 0.9 x 1.3 x 0.5 cm (L x W x D). There is 0.6 cm undermining from 4:00 to 5:00. There is no tunneling or sinus tracking. There is luna serous drainage noted which has no odor. The patient reports a wound pain level 0/10. The wound margin is unattached. The wound bed has no epithelialization, no eschar, yes slough, and yes firm red granulation. The periwound skin texture, moisture, temperature, and color are normal. Exposed structures: Adipose. I am unable to demonstrate a communication between the wounds. Subjective - Subjective Patient Reports: Other (Dressings intact and tolerated well Attentive to offloading. Is awaiting delivery of a knee scooter that he recently purchased. Here for placement of wound VAC. Denies pain. Denies FCS.) Procedure - Procedure Note Wound #1: After informed consent was obtained, a skin/subcutaneous tissue level surgical debridement with a total area of 4.4 square centimeters was performed Kalia Wren MD. Using a curette, dermis, epidermis, and subcutaneous tissues were removed along with devitalized tissue: Exudate and slough. Pain control was achieved using 5% topical lidocaine. A timeout was conducted prior to the start of the procedure. A minimal amount of bleeding was controlled with pressure. The procedure was tolerated well. Postdebridement measurements: 2.0 x 2.2 x 0.8 cm (L x W x D). Wound #2: After informed consent was obtained, a skin/subcutaneous tissue level surgical debridement with a total area of 3.45 square centimeters was performed by Juan Wren MD. Using a curette, dermis, epidermis, and subcutaneous tissues were removed along with devitalized tissue: Callus, exudate and slough. Pain control was achieved using 5% topical lidocaine. A timeout was conducted prior to the start of the procedure. A minimal amount of bleeding was controlled with pressure. The procedure was tolerated well. Postdebridement measurements: 2.3 x 1.5 x 0.3 cm (L x W x D). Wound #3: After informed consent was obtained, a skin/subcutaneous tissue level surgical debridement with a total area of 1.17 square centimeters was performed by Juan Wren MD. Using a curette, dermis, epidermis, and subcutaneous tissues were removed along with devitalized tissue: Exudate and slough. Pain control was achieved using 5% topical lidocaine. A timeout was conducted prior to the start of the procedure. A minimal amount of bleeding was controlled with pressure. The procedure was tolerated well. Postdebridement measurements: 0.9 x 1.3 x 0.6 cm (L x W x D).
[2022-09-11] MEDS: IBUPROFEN 400 MG TABLET PO PRN (23:39)
[2022-09-12 05:04] LABS: BASOPHILS % (AUTO) 0.2 %; EOSINOPHILS # (AUTO) 0.2 10^3/uL (0.0-0.7); EOSINOPHILS % (AUTO) 2.4 %; HCT - HEMATOCRIT 34.1 % (42.0-52.0); LYMPHOCYTES # (AUTO) 2.3 10^3/uL (1.5-3.5); LYMPHOCYTES % (AUTO) 27.5 %; MEAN CORPUSCULAR HEMOGLOBIN 25.7 pg (27.0-31.0); MEAN CORPUSCULAR HGB CONC 32.3 g/dL (32.0-36.0); MEAN CORPUSCULAR VOLUME 79.7 fL (80.0-94.0); MEAN PLATELET VOLUME 9.5 fL (7.4-11.4); MONOCYTES # (AUTO) 0.7 10^3/uL (0.0-1.0); MONOCYTES % (AUTO) 8.3 %; NEUTROPHILS # (AUTO) 5.2 10^3/uL (1.5-6.6); NEUTROPHILS % (AUTO) 61.4 %; PLT - PLATELET COUNT 360 10^3/uL (130-450); RED BLOOD COUNT 4.28 10^6/uL (4.70-6.10); RED CELL DISTRIBUTION WIDTH 14.2 % (12.0-15.0); WHITE BLOOD COUNT 8.4 x10^3/uL (4.8-10.8)
[2022-09-12 05:32] LABS: CALCIUM 8.9 mg/dL (8.5-10.3); CREATININE 0.9 mg/dL (0.6-1.2); POTASSIUM 3.8 mmol/L (3.5-5.0)
[2022-09-12] MEDS: PANTOPRAZOLE 40 MG TABLET PO SCH (06:43)
[2022-09-12] MEDS: LOSARTAN 50 MG TABLET PO SCH ×2 (08:04→20:51)
[2022-09-12] MEDS: MULTIVITAMIN W/MINERALS TABLET PO SCH (08:04)
[2022-09-12] MEDS: METOPROLOL TARTRATE 25 MG TABLET PO SCH ×2 (08:04→20:48)
[2022-09-12] MEDS: FERROUS GLUCONATE 324 MG TABLET PO SCH (08:05)
[2022-09-12] MEDS: metFORMIN 850 MG TABLET PO SCH ×3 (08:05→17:45)
[2022-09-12] MEDS: ENOXAPARIN 40 MG/0.4 ML SYRINGE SUBQ SCH ×2 (08:05→20:48)
[2022-09-12] MEDS: SACCHAROMYCES BOULARDII 250 MG CAPSULE PO SCH ×2 (08:05→17:45)
[2022-09-12] MEDS: ASCORBIC ACID 500 MG TABLET PO SCH (08:05)
[2022-09-12] MEDS: INSULIN GLARGINE-YFGN 300 UNIT/3 ML PEN SUBQ SCH ×2 (08:06→20:46)
[2022-09-12] MEDS: INSULIN LISPRO 300 UNIT/3 ML PEN SUBQ SCH ×7 (08:07→20:47)
[2022-09-12] MEDS: ERTAPENEM 1 GM in SODIUM CHLORIDE 0.9% MINIBAG 100 ML IV SCH (08:08)
[2022-09-12] MEDS: NYSTATIN CREAM 15 GM TUBE TOP SCH ×2 (08:08→20:56)
[2022-09-12] MEDS: SODIUM CHLORIDE FLUSH 0.9% 10 ML SYRINGE IVP SCH ×3 (08:29→20:59)
[2022-09-12] MEDS: hydroCHLOROthiazide 25 MG TABLET PO SCH (08:29)
--- NOTE | 2022-09-12 15:40 | PROVIDER PROGRESS NOTE ---
Assessment/Plan - Problem List (1) Chronic diabetic ulcer of left foot determined by examination Assessment/Plan: He has a Diabetic foot infection with osteomyelitis and had 3 foot ulcers, now just 1 ulcer and had cellulitis that has resolved. He was seen at [facility] by Dr Wren 09/[address] Wren applyed a Wound Vac in Wound clinic yesterday 09/11. Due to the new bulky wound VAC machine and attachment on the skin of his left lateral leg, he got very poor sleep yesterday and appears tired today. Labs were reviewed. He gets labs done only weekly, every Thu now. The WBC is stable (he never had an elevated white count). His CRP has decreased even further to 2.3 from 4.2 a week ago. All these lab results were discussed with the patient today Plan: Now it is down to wound healing with good wound care and finishing 4 weeks of iv antibx. The knee scooter, that can handle 350 lbs, was purchased and is arriving soon. Will give prn Ambien to help him sleep (2) Type 2 diabetes mellitus, uncontrolled, with complications of neuropathy, with hyperglycemia, on long-term insulin. On 09/09 he requested to restart Metformin. Med list was reviewed and he took 850 BID and it was restarted. During the stay he has lost about 4 kg of weight. He is in a carb controlled di et. Wound healing has occurred very nicely. We cut back the dinner lispro dose from 8->5 units and lunch lispro dose from 8->5. Continued the 10 units with breakfast. And on 09/09, I decreased his am Lantus from 40 to 30 and decreased his meal doses down to 4, 2, 2, but glucose thalia to the high 200s. On 09/10, I continued the am Lantus dose of 30, but increased each meal dose from 4, 2, 2>> 6, 4, 4. All labs were reviewed. With that schedule, his glu are now 140-209, higher in the afternoon. Plan: Cont Metformin BID Continue Lantus 30 in am and mealtime Lispro will be adjusted to 8, 4, 4. - Current Meds Current Meds: Current Medications Generic Name Dose Route Start Last Admin Trade Name Freq PRN Reason Stop Dose Admin Acetaminophen 650 mg 08/09/22 21:56 08/23/22 05:15 Acetaminophen 325 Mg Tablet PO 650 mg Q4HR PRN Administration Pain 1 to 4, or Fever Hydrocodone Bitart/Acetaminophen 1 tab 08/09/22 21:56 08/19/22 11:45 Hydrocod/Acetam 10 Mg/325 Mg Tablet PO 1 tab Q4HR PRN Administration Pain 8 to 10 Hydrocodone Bitart/Acetaminophen 1 tab 08/09/22 21:56 09/03/22 20:06 Hydrocod/Acetam 5/325 Mg Tablet PO 1 tab Q4HR PRN Administration Pain 5 to 7 Ascorbic Acid 500 mg 08/24/22 08:00 09/12/22 08:05 Ascorbic Acid 500 Mg Tablet PO 500 mg DAILYWM ADRI Administration Carboxymethylcellulose 1 drops 08/10/22 01:01 08/22/22 17:05 Carboxymethylcellulose Ophth Drops EACHEYE 1 drops PRN PRN Administration Dry Eye Enoxaparin Sodium 40 mg 08/22/22 09:00 09/12/22 08:05 Enoxaparin 40 Mg/0.4 Ml Syringe SUBQ 40 mg BID ADRI Administration Ferrous Gluconate 324 mg 08/24/22 08:00 09/12/22 08:05 Ferrous Gluconate 324 Mg Tablet PO 324 mg DAILYWM ADRI Administration Hydrochlorothiazide 25 mg 08/17/22 09:00 09/12/22 08:29 Hydrochlorothiazide 25 Mg Tablet PO 25 mg DAILY ADRI Administration Ertapenem 1 gm/ Sodium 100 mls @ 200 mls/hr 08/20/22 12:00 09/12/22 08:08 Chloride IV 200 mls/hr DAILY ADRI Administration Ibuprofen 400 mg 08/23/22 14:27 09/11/22 23:39 Ibuprofen 400 Mg Tablet PO 400 mg Q6HR PRN Administration PAIN Insulin Glargine-yfgn 30 unit 09/10/22 09:00 09/12/22 08:06 Insulin Glargine-Yfgn 300 Unit/3 Ml Pen SUBQ 30 unit DAILY ADRI Administration Insulin Glargine-yfgn 5 unit 09/09/22 21:00 09/11/22 20:55 Insulin Glargine-Yfgn 300 Unit/3 Ml Pen SUBQ 5 unit QPM ADRI Administration Insulin Human Lispro 1 - 9 unit 08/22/22 17:00 09/12/22 12:34 Insulin Lispro 300 Unit/3 Ml Pen SUBQ 3 unit 0800,1200,1700,2100 ADRI Administration Protocol Insulin Human Lispro 6 unit 09/11/22 08:00 09/12/22 08:08 Insulin Lispro 300 Unit/3 Ml Pen SUBQ 6 unit 0800 ADRI Administration Insulin Human Lispro 4 unit 09/11/22 12:00 09/12/22 12:34 Insulin Lispro 300 Unit/3 Ml Pen SUBQ 4 unit 1200 ADRI Administration Insulin Human Lispro 4 unit 09/10/22 17:00 09/11/22 17:49 Insulin Lispro 300 Unit/3 Ml Pen SUBQ 4 unit 1700 ADRI Administration Loratadine 10 mg 08/31/22 07:44 09/01/22 05:56 Loratadine 10 Mg Tablet PO 10 mg DAILY PRN Administration ITCHING Losartan Potassium 50 mg 08/10/22 09:00 09/12/22 08:04 Losartan 50 Mg Tablet PO 50 mg BID ADRI Administration Metformin HCl 850 mg 09/09/22 17:00 09/12/22 08:05 Metformin 850 Mg Tablet PO 850 mg TIDWM ADRI Administration Metoclopramide HCl 5 mg 08/11/22 22:37 08/11/22 23:00 Metoclopramide 10 Mg/2 Ml Vial IVP 5 mg Q6HR PRN Administration NEEDED PER PROVIDER ORDERS Metoprolol Tartrate 25 mg 08/10/22 09:00 09/12/22 08:04 Metoprolol Tartrate 25 Mg Tablet PO 25 mg BID ADRI Administration Multi-Ingred Cream/Lotion/Oil/Oint 1 applic 08/22/22 15:55 08/23/22 20:49 Mineral Oil/Petrolat Ophth Oint EACHEYE 1 applic QPM PRN Administration Dry Eye Multi-Ingredient Ointment 1 applic 08/13/22 18:12 08/13/22 18:46 Zinc Oxide 20% Oint 30 Gm Tube TOP 1 applic PRN PRN Administration Skin Care Multivitamins/Minerals 1 tab 08/15/22 09:00 09/12/22 08:04 Multivitamin W/Minerals Tablet PO 1 tab DAILYWM ADRI Administration Nystatin 1 applic 09/03/22 13:00 09/12/22 08:08 Nystatin Cream 15 Gm Tube TOP 1 applic BID ADRI Administration Ondansetron HCl 4 mg 08/09/22 21:56 08/16/22 08:38 Ondansetron 4 Mg/2 Ml Vial IVP 4 mg Q6HR PRN Administration Nausea / Vomiting Pantoprazole Sodium 40 mg 08/10/22 07:00 09/12/22 06:43 Pantoprazole 40 Mg Tablet PO 40 mg QDAC ADRI Administration Systane Eye Drops 1 each 08/24/22 16:00 09/09/22 21:03 EACHEYE 1 each PRN PRN Administration DRY EYE Saccharomyces Boulardii 250 mg 08/17/22 17:00 09/12/22 08:05 Saccharomyces Boulardii 250 Mg Capsule PO 250 mg BIDWM ADRI Administration Sodium Chloride 10 ml 08/09/22 21:56 09/09/22 16:58 Sodium Chloride Flush 0.9% 10 Ml Syringe IVP 10 ml PRN PRN Administration NEEDED PER PROVIDER ORDERS Sodium Chloride 10 ml 08/10/22 01:00 09/12/22 08:29 Sodium Chloride Flush 0.9% 10 Ml Syringe IVP 10 ml 0100,0900,1700 ADRI Administration Sodium Chloride 20 ml 08/25/22 03:57 08/30/22 05:40 Sodium Chloride Flush 0.9% 10 Ml Syringe IVP 20 ml PRN PRN Administration After Blood Draw Throat Lozenges 1 lozenge 08/10/22 01:01 08/17/22 16:28 Benzocaine/Menthol Lozenge MM 1 lozenge Q2HR PRN Administration Throat pain - Lab Result Fish Bone Diagrams: 09/12/22 04:42 09/12/22 04:42 Subjective - Subjective Patient Reports: Other (Wound VAC was preventing him from getting a good sleep, he is tired) Objective Vital Signs: Vital Signs - 24 hr 09/11/22 09/11/22 09/11/22 16:00 20:56 23:37 Temperature 36.8 C 37.1 C Heart Rate [ 78 81 Brachial] Respiratory 16 16 Rate Blood Pressure 123/62 Blood Pressure 104/87 H 111/72 [Left Brachial artery] O2 Saturation 98 98 09/12/22 09/12/22 08:00 08:04 Temperature 36.4 C L Heart Rate [ 70 Brachial] Respiratory 18 Rate Blood Pressure 125/75 Blood Pressure 125/75 [Left Brachial artery] O2 Saturation 99 Oxygen O2 Source Room air I&O (Last 24 Hrs): Intake and Output Totals x24h 09/10/22 09/11/22 09/12/22 23:59 23:59 23:59 Intake Total 2100 1460 1620 Output Total 1 1100 300 Balance 2099 360 1320 General: Alert, Oriented x3, Other (Appears tired) HEENT: Atraumatic, Other (Heavy eyelids, appears tired) Neck: Supple Neuro: Alert Cardiovascular: Regular rate Respiratory: No respiratory distress Abdomen: No tenderness Extremities: Other (The entire left foot is edematous, the lateral portion has an attached wound seal with long VAC tube leading to the machine, which is on the chair next to him) - Results Results: Laboratory Results WBC 8.4 x10^3/uL (4.8-10.8) 09/12/22 04:42 RBC 4.28 10^6/uL (4.70-6.10) L 09/12/22 04:42 Hgb 11.0 g/dL (14.0-18.0) L 09/12/22 04:42 Hct 34.1 % (42.0-52.0) L 09/12/22 04:42 MCV 79.7 fL (80.0-94.0) L 09/12/22 04:42 MCH 25.7 pg (27.0-31.0) L 09/12/22 04:42 MCHC 32.3 g/dL (32.0-36.0) 09/12/22 04:42 RDW 14.2 % (12.0-15.0) 09/12/22 04:42 Plt Count 360 10^3/uL (130-450) 09/12/22 04:42 MPV 9.5 fL (7.4-11.4) 09/12/22 04:42 Reticulocyte % (Auto) 1.17 % (0.5-2.3) 08/24/22 04:19 Neut # (Auto) 5.2 10^3/uL (1.5-6.6) 09/12/22 04:42 Lymph # (Auto) 2.3 10^3/uL (1.5-3.5) 09/12/22 04:42 [place] # (Auto) 0.7 10^3/uL (0.0-1.0) 09/12/22 04:42 Eos # (Auto) 0.2 10^3/uL (0.0-0.7) 09/12/22 04:42 Baso # (Auto) 0.0 10^3/uL (0.0-0.1) 09/12/22 04:42 Absolute Nucleated RBC 0.00 x10^3/uL 09/12/22 04:42 Total Counted 100 08/09/22 19:59 Band Neuts % (Manual) 2 % (0-10) 08/09/22 19:59 Abnorm Lymph % (Manual) 0 % 08/09/22 19:59 Nucleated RBC % 0.0 /100WBC 09/12/22 04:42 Neutrophils # (Manual) 18.7 10^3/uL (1.5-6.6) H 08/09/22 19:59 Lymphocytes # (Manual) 1.3 10^3/uL (1.5-3.5) L 08/09/22 19:59 Monocytes # (Manual) 1.3 10^3/uL (0.0-1.0) H 08/09/22 19:59 Eosinophils # (Manual) 0.0 10^3/uL (0-0.7) 08/09/22 19:59 Basophils # (Manual) 0.0 10^3/uL (0-0.1) 08/09/22 19:59 Differential Comment MANUAL DIFFERENTIAL 08/09/22 19:59 WBC Morphology 2+ TOXIC GRANULATION (NORMAL) 08/09/22 19:59 Platelet Estimate NORMAL (130-450,000) (NORMAL) 08/09/22 19:59 Platelet Morphology NORMAL APPEARANCE (NORMAL) 08/09/22 19:59 RBC Morph Micro Appear NORMAL APPEARANCE (NORMAL) 08/09/22 19:59 ESR 64 mm/Hr (0-15) H 08/09/22 19:59 Absolute Retic 0.046 10^6/uL (0.020-0.110) 08/24/22 04:19 Sodium 139 mmol/L (135-145) 09/12/22 04:42 Potassium 3.8 mmol/L (3.5-5.0) 09/12/22 04:42 Chloride 103 mmol/L (101-111) 09/12/22 04:42 Carbon Dioxide 27 mmol/L (21-32) 09/12/22 04:42 Anion Gap 9.0 (6-13) 09/12/22 04:42 BUN 32 mg/dL (6-20) H 09/12/22 04:42 Creatinine 0.9 mg/dL (0.6-1.2) 09/12/22 04:42 Estimated GFR (MDRD) 93 (>89) 09/12/22 04:42 Glucose 141 mg/dL (70-100) H 09/12/22 04:42 POC Whole Bld Glucose 223 mg/dL (70 - 100) H 09/12/22 11:44 Estimat Average Glucose 298 mg/dL (70-100) H 08/10/22 06:26 Hemoglobin A1c % 12.0 % (4.27-6.07) H 08/10/22 06:26 Lactic Acid 1.4 mmol/L (0.5-2.2) 08/09/22 21:46 Calcium 8.9 mg/dL (8.5-10.3) 09/12/22 04:42 Magnesium 2.4 mg/dL (1.7-2.8) 08/30/22 05:45 Iron 24 ug/dL (45-182) L 08/24/22 04:19 Iron 27 ug/dL (45-182) L 08/24/22 04:19 TIBC 273 ug/dL (250-450) 08/24/22 04:19 % Saturation 9 % (20-50) L 08/24/22 04:19 Transferrin 195 mg/dL (180-329) 08/24/22 04:19 Ferritin 95.4 ng/mL (23.9-336.2) 08/24/22 04:19 Total Bilirubin 1.4 mg/dL (0.2-1.0) H 08/10/22 06:26 AST 22 IU/L (10-42) 08/10/22 06:26 ALT 21 IU/L (10-60) 08/10/22 06:26 Alkaline Phosphatase 113 IU/L (42-121) 08/10/22 06:26 Lactate Dehydrogenase 100 IU/L (91-225) 08/24/22 04:19 C-Reactive Protein 2.3 mg/dL (0-1.0) H 09/12/22 04:42 Total Protein 6.6 g/dL (6.7-8.2) L 08/10/22 06:26 Albumin 2.7 g/dL (3.2-5.5) L 08/10/22 06:26 Globulin 3.9 g/dL (2.1-4.2) 08/10/22 06:26 Albumin/Globulin Ratio 0.7 (1.0-2.2) L 08/10/22 06:26 Triglycerides 136 mg/dL (-149) 08/10/22 06:26 Cholesterol 153 mg/dL (-199) 08/10/22 06:26 LDL Cholesterol, Calc 97 mg/dL (-129) 08/10/22 06:26 VLDL Cholesterol 27 mg/dL 08/10/22 06:26 HDL Cholesterol 29 mg/dL (60-) L 08/10/22 06:26 LDL/HDL Ratio 3.3 (<3.6) 08/10/22 06:26 Cholesterol/HDL Ratio 5.3 (<5.0) 08/10/22 06:26 Lipase 23 U/L (22-51) 08/09/22 19:59 Vitamin B12 201 pg/mL (180-914) 08/24/22 04:19 Procalcitonin 0.84 ng/mL (<0.5) H 08/09/22 21:46 TSH 0.84 uIU/mL (0.34-5.60) 08/10/22 06:26 Urine Color DARK YELLOW 08/09/22 20:27 Urine Clarity CLEAR (CLEAR) 08/09/22 20: Urine pH 5.5 PH (5.0-7.5) 08/09/22 20:27 Ur Specific [place] 1.015 (1.002-1.030) 08/09/22 20:27 Urine Protein NEGATIVE mg/dL (NEGATIVE) 08/09/22 20:27 Urine Glucose (UA) >=1000 mg/dL (NEGATIVE) H 08/09/22 20:27 Urine Ketones TRACE mg/dL (NEGATIVE) 08/09/22 20:27 Urine Occult Blood TRACE-INTA (NEGATIVE) 08/09/22 20:27 Urine Nitrite NEGATIVE (NEGATIVE) 08/09/22 20:27 Urine Bilirubin SMALL (NEGATIVE) H 08/09/22 20:27 Urine Urobilinogen 2 E.U./dL (NORMAL) H 08/09/22 20:27 Ur Leukocyte Esterase NEGATIVE (NEGATIVE) 08/09/22 20:27 Ur Microscopic Review NOT INDICATED 08/09/22 20:27 Urine Culture Comments NOT INDICATED 08/09/22 20:27 Nasal Adenovirus (PCR) NOT DETECTED 08/17/22 16:30 Nasal B. parapertussis DNA (PCR) NOT DETECTED 08/17/22 16:30 Nasal Coronavir 229E PCR NOT DETECTED 08/17/22 16:30 Nasal Coronavir HKU1 PCR NOT DETECTED 08/17/22 16:30 Nasal Coronavir NL63 PCR NOT DETECTED 08/17/22 16:30 Nasal Coronavir OC43 PCR NOT DETECTED 08/17/22 16:30 Nasal Enterovir/Rhinovir PCR NOT DETECTED 08/17/22 16:30 Nasal Influenza B PCR NOT DETECTED 08/17/22 16:30 Nasal Influenza A PCR NOT DETECTED 08/17/22 16:30 Nasal Parainfluen 1 PCR NOT DETECTED 08/17/22 16:30 Nasal Parainfluen 2 PCR NOT DETECTED 08/17/22 16:30 Nasal Parainfluen 3 PCR NOT DETECTED 08/17/22 16:30 Nasal Parainfluen 4 PCR NOT DETECTED 08/17/22 16:30 Nasal RSV (PCR) NOT DETECTED 08/17/22 16:30 Nasal B.pertussis DNA PCR NOT DETECTED 08/17/22 16:30 Nasal C.pneumoniae (PCR) NOT DETECTED 08/17/22 16:30 Yannick Human Metapneumo PCR NOT DETECTED 08/17/22 16:30 Nasal M.pneumoniae (PCR) NOT DETECTED 08/17/22 16:30 Nasal SARS-CoV-2 (PCR) NOT DETECTED 08/17/22 16:30 Last Dose Date 08/14/2022 08/14/22 13:55 Last Dose Time 0336 08/14/22 13:55 Vancomycin Trough 16.6 ug/mL (10.0-20.0) 08/14/22 13:55 Sepsis Event Note (H) - Evaluation Current Stage of Sepsis: Ruled out
[2022-09-12] MEDS ORDERED: ZOLPIDEM 5 MG TABLET PO PRN (15:42)
[2022-09-12] MEDS: HYDROcod/ACETAM 5/325 MG TABLET PO PRN (21:34)
[2022-09-13] MEDS: PANTOPRAZOLE 40 MG TABLET PO SCH (06:47)
[2022-09-13] MEDS: METOPROLOL TARTRATE 25 MG TABLET PO SCH ×2 (09:06→21:11)
[2022-09-13] MEDS: ASCORBIC ACID 500 MG TABLET PO SCH (09:06)
[2022-09-13] MEDS: SACCHAROMYCES BOULARDII 250 MG CAPSULE PO SCH ×2 (09:06→16:58)
[2022-09-13] MEDS: metFORMIN 850 MG TABLET PO SCH ×3 (09:06→16:58)
[2022-09-13] MEDS: MULTIVITAMIN W/MINERALS TABLET PO SCH (09:06)
[2022-09-13] MEDS: hydroCHLOROthiazide 25 MG TABLET PO SCH (09:06)
[2022-09-13] MEDS: LOSARTAN 50 MG TABLET PO SCH ×2 (09:06→21:11)
[2022-09-13] MEDS: INSULIN LISPRO 300 UNIT/3 ML PEN SUBQ SCH ×7 (09:07→21:11)
[2022-09-13] MEDS: ENOXAPARIN 40 MG/0.4 ML SYRINGE SUBQ SCH ×2 (09:07→21:11)
[2022-09-13] MEDS: INSULIN GLARGINE-YFGN 300 UNIT/3 ML PEN SUBQ SCH ×2 (09:08→21:12)
--- NOTE | 2022-09-13 09:08 | PROVIDER PROGRESS NOTE ---
Assessment/Plan - Problem List (1) Chronic diabetic ulcer of left foot determined by examination Assessment/Plan: He has a Diabetic foot infection with osteomyelitis and had 3 foot ulcers, now just 1 ulcer and had cellulitis that has resolved. He was seen at [facility] by Dr Wren who applied a Wound Vac on 09/11. Due to the new bulky wound VAC machine and attachment on the skin of his left lateral leg, he got very poor sleep and appeared very tired. Ambien prn was ordered but the nurses instead gave him [place] last night (despite no pain, just a pressure feeling of the L foot he rated 3/10) Labs were reviewed. He gets labs done only weekly, on Fridays. The WBC is stable (he never had an elevated white count). His CRP has decreased even further to 2.3 from 4.2 a week ago. Plan: Now it is down to wound healing with good wound care and finishing 4 weeks of iv antibx. His last day of IV antibiotics will be on 09/18. Will plan to give 1 day of oral antibiotics on Tuesday 09/19 to make sure there is no worsening on oral antibx. Then the PICC line will be removed and he can be discharged on 09/20. This entire plan was discussed with the patient and his brother Wai was in the room today. The knee scooter, that can handle 350 lbs, was purchased and is arriving here on 09/15. We will ask PT to teach him how to use it. He is requesting reeval by PT for left foot exercises also, will request that. Cont prn Ambien to help him sleep. Will stop Nordheim. Will also order no awakening pt between 0000 and 0600. We need the detailed plan of how Dr. Wren wants to deal with his wound VAC and visits to [facility]. (2) Type 2 diabetes mellitus, uncontrolled, with complications of neuropathy, with hyperglycemia, on long-term insulin. On 09/09 he requested to restart Metformin. Med list was reviewed and he took 850 BID and it was restarted. During the stay he has lost about 4 kg of weight. He is in a carb controlled diet. Wound healing has occurred very nicely. We cut back the dinner lispro dose from 8->5 units and lunch lispro dose from 8->5. Continued the 10 units with breakfast. On 09/09, as we restarted Metformin, I decreased his am Lantus from 40 to 30 and decreased his meal doses down to 4, 2, 2, but glucose thalia to the high 200s. On 09/10, I continued the am Lantus dose of 30, but increased the mealtime doses from 4, 2, 2>> 6, 4, 4. All labs were reviewed. With that schedule, his glu are now 140-209, higher in the afternoon. On 09/12, I changed mealtime doses to 8, 4, 4. Today glu were 199, 166, 109. Plan: Cont Metformin BID Continue Lantus 30 in am and mealtime Lispro 8, 4, 4. - Current Meds Current Meds: Current Medications Generic Name Dose Route Start Last Admin Trade Name Freq PRN Reason Stop Dose Admin Acetaminophen 650 mg 08/09/22 21:56 08/23/22 05:15 Acetaminophen 325 Mg Tablet PO 650 mg Q4HR PRN Administration Pain 1 to 4, or Fever Hydrocodone Bitart/Acetaminophen 1 tab 08/09/22 21:56 08/19/22 11:45 Hydrocod/Acetam 10 Mg/325 Mg Tablet PO 1 tab Q4HR PRN Administration Pain 8 to 10 Hydrocodone Bitart/Acetaminophen 1 tab 08/09/22 21:56 09/12/22 21:34 Hydrocod/Acetam 5/325 Mg Tablet PO 1 tab Q4HR PRN Administration Pain 5 to 7 Ascorbic Acid 500 mg 08/24/22 08:00 09/12/22 08:05 Ascorbic Acid 500 Mg Tablet PO 500 mg DAILYWM ADRI Administration Carboxymethylcellulose 1 drops 08/10/22 01:01 08/22/22 17:05 Carboxymethylcellulose Ophth Drops EACHEYE 1 drops PRN PRN Administration Dry Eye Enoxaparin Sodium 40 mg 08/22/22 09:00 09/12/22 20:48 Enoxaparin 40 Mg/0.4 Ml Syringe SUBQ 40 mg BID ADRI Administration Hydrochlorothiazide 25 mg 08/17/22 09:00 09/12/22 08:29 Hydrochlorothiazide 25 Mg Tablet PO 25 mg DAILY ADRI Administration Ertapenem 1 gm/ Sodium 100 mls @ 200 mls/hr 08/20/22 12:00 09/13/22 07:22 Chloride IV Infused DAILY ADRI Infusion Ibuprofen 400 mg 08/23/22 14:27 09/11/22 23:39 Ibuprofen 400 Mg Tablet PO 400 mg Q6HR PRN Administration PAIN Insulin Glargine-yfgn 30 unit 09/10/22 09:00 09/12/22 08:06 Insulin Glargine-Yfgn 300 Unit/3 Ml Pen SUBQ 30 unit DAILY ADRI Administration Insulin Glargine-yfgn 5 unit 09/09/22 21:00 09/12/22 20:46 Insulin Glargine-Yfgn 300 Unit/3 Ml Pen SUBQ 5 unit QPM ADRI Administration Insulin Human Lispro 1 - 9 unit 08/22/22 17:00 09/12/22 20:47 Insulin Lispro 300 Unit/3 Ml Pen SUBQ 3 unit 0800,1200,1700,2100 ADRI Administration Protocol Insulin Human Lispro 4 unit 09/11/22 12:00 09/12/22 12:34 Insulin Lispro 300 Unit/3 Ml Pen SUBQ 4 unit 1200 ADRI Administration Insulin Human Lispro 4 unit 09/10/22 17:00 09/12/22 17:46 Insulin Lispro 300 Unit/3 Ml Pen SUBQ 4 unit 1700 ADRI Administration Loratadine 10 mg 08/31/22 07:44 09/01/22 05:56 Loratadine 10 Mg Tablet PO 10 mg DAILY PRN Administration ITCHING Losartan Potassium 50 mg 08/10/22 09:00 09/12/22 20:51 Losartan 50 Mg Tablet PO 50 mg BID ADRI Administration Metformin HCl 850 mg 09/09/22 17:00 09/12/22 17:45 Metformin 850 Mg Tablet PO 850 mg TIDWM ADRI Administration Metoclopramide HCl 5 mg 08/11/22 22:37 08/11/22 23:00 Metoclopramide 10 Mg/2 Ml Vial IVP 5 mg Q6HR PRN Administration NEEDED PER PROVIDER ORDERS Metoprolol Tartrate 25 mg 08/10/22 09:00 09/12/22 20:48 Metoprolol Tartrate 25 Mg Tablet PO 25 mg BID ADRI Administration Multi-Ingred Cream/Lotion/Oil/Oint 1 applic 08/22/22 15:55 08/23/22 20:49 Mineral Oil/Petrolat Ophth Oint EACHEYE 1 applic QPM PRN Administration Dry Eye Multi-Ingredient Ointment 1 applic 08/13/22 18:12 08/13/22 18:46 Zinc Oxide 20% Oint 30 Gm Tube TOP 1 applic PRN PRN Administration Skin Care Multivitamins/Minerals 1 tab 08/15/22 09:00 09/12/22 08:04 Multivitamin W/Minerals Tablet PO 1 tab DAILYWM ADRI Administration Nystatin 1 applic 09/03/22 13:00 09/12/22 20:56 Nystatin Cream 15 Gm Tube TOP 1 applic BID ADRI Administration Ondansetron HCl 4 mg 08/09/22 21:56 08/16/22 08:38 Ondansetron 4 Mg/2 Ml Vial IVP 4 mg Q6HR PRN Administration Nausea / Vomiting Pantoprazole Sodium 40 mg 08/10/22 07:00 09/13/22 06:47 Pantoprazole 40 Mg Tablet PO 40 mg QDAC ADRI Administration Systane Eye Drops 1 each 08/24/22 16:00 09/09/22 21:03 EACHEYE 1 each PRN PRN Administration DRY EYE Saccharomyces Boulardii 250 mg 08/17/22 17:00 09/12/22 17:45 Saccharomyces Boulardii 250 Mg Capsule PO 250 mg BIDWM ADRI Administration Sodium Chloride 10 ml 08/09/22 21:56 09/09/22 16:58 Sodium Chloride Flush 0.9% 10 Ml Syringe IVP 10 ml PRN PRN Administration NEEDED PER PROVIDER ORDERS Sodium Chloride 10 ml 08/10/22 01:00 09/12/22 20:59 Sodium Chloride Flush 0.9% 10 Ml Syringe IVP 10 ml 0100,0900,1700 ADRI Administration Sodium Chloride 20 ml 08/25/22 03:57 08/30/22 05:40 Sodium Chloride Flush 0.9% 10 Ml Syringe IVP 20 ml PRN PRN Administration After Blood Draw Throat Lozenges 1 lozenge 08/10/22 01:01 08/17/22 16:28 Benzocaine/Menthol Lozenge MM 1 lozenge Q2HR PRN Administration Throat pain - Lab Result Fish Bone Diagrams: 09/12/22 04:42 09/12/22 04:42 - Additional Planning My Orders: My Active Orders 09/12/22 15:42 Zolpidem [Ambien] 5 mg PO QPM PRN 09/12/22 15:43 Miscellaenous Nursing Order [RC] QSHIFT 09/13/22 08:00 Insulin Lispro [Humalog Kwikpen U-100] 8 unit SUBQ 0800 Subjective - Subjective Patient Reports: Resting Comfortably, Other (Asks about specific left foot and ankle exercises from PT. Says that his scooter will probably get here on Thursday, after his brother puts it together tomorrow.) Objective Vital Signs: Vital Signs - 24 hr 09/12/22 09/12/22 09/12/22 20:00 20:48 23:46 Temperature 36.9 C 36.9 C Heart Rate [ 73 74 Brachial] Respiratory 16 16 Rate Blood Pressure 119/69 Blood Pressure 119/69 107/65 [Left Brachial artery] O2 Saturation 97 98 09/13/22 07:24 Temperature 36.8 C Heart Rate [ 72 Brachial] Respiratory 18 Rate Blood Pressure Blood Pressure 116/74 [Left Brachial artery] O2 Saturation 100 Oxygen O2 Source Room air I&O (Last 24 Hrs): Intake and Output Totals x24h 09/11/22 09/12/22 09/13/22 23:59 23:59 23:59 Intake Total 1460 2745 700 Output Total 1100 1250 750 Balance 360 1495 -50 General: Alert, Oriented x3 HEENT: EOMI, Mucous membr. moist/pink Neck: Supple Neuro: Alert Cardiovascular: Regular rate Respiratory: No respiratory distress Abdomen: Soft, Other (obese) Extremities: Other (Left forefoot is edematous, not tender, left lateral midfoot has wound VAC attached, is draining scant brown liquid.) - Results Results: Laboratory Results WBC 8.4 x10^3/uL (4.8-10.8) 09/12/22 04:42 RBC 4.28 10^6/uL (4.70-6.10) L 09/12/22 04:42 Hgb 11.0 g/dL (14.0-18.0) L 09/12/22 04:42 Hct 34.1 % (42.0-52.0) L 09/12/22 04:42 MCV 79.7 fL (80.0-94.0) L 09/12/22 04:42 MCH 25.7 pg (27.0-31.0) L 09/12/22 04:42 MCHC 32.3 g/dL (32.0-36.0) 09/12/22 04:42 RDW 14.2 % (12.0-15.0) 09/12/22 04:42 Plt Count 360 10^3/uL (130-450) 09/12/22 04:42 MPV 9.5 fL (7.4-11.4) 09/12/22 04:42 Reticulocyte % (Auto) 1.17 % (0.5-2.3) 08/24/22 04:19 Neut # (Auto) 5.2 10^3/uL (1.5-6.6) 09/12/22 04:42 Lymph # (Auto) 2.3 10^3/uL (1.5-3.5) 09/12/22 04:42 Hooker # (Auto) 0.7 10^3/uL (0.0-1.0) 09/12/22 04:42 Eos # (Auto) 0.2 10^3/uL (0.0-0.7) 09/12/22 04:42 Baso # (Auto) 0.0 10^3/uL (0.0-0.1) 09/12/22 04:42 Absolute Nucleated RBC 0.00 x10^3/uL 09/12/22 04:42 Total Counted 100 08/09/22 19:59 Band Neuts % (Manual) 2 % (0-10) 08/09/22 19:59 Abnorm Lymph % (Manual) 0 % 08/09/22 19:59 Nucleated RBC % 0.0 /100WBC 09/12/22 04:42 Neutrophils # (Manual) 18.7 10^3/uL (1.5-6.6) H 08/09/22 19:59 Lymphocytes # (Manual) 1.3 10^3/uL (1.5-3.5) L 08/09/22 19:59 Monocytes # (Manual) 1.3 10^3/uL (0.0-1.0) H 08/09/22 19:59 Eosinophils # (Manual) 0.0 10^3/uL (0-0.7) 08/09/22 19:59 Basophils # (Manual) 0.0 10^3/uL (0-0.1) 08/09/22 19:59 Differential Comment MANUAL DIFFERENTIAL 08/09/22 19:59 WBC Morphology 2+ TOXIC GRANULATION (NORMAL) 08/09/22 19:59 Platelet Estimate NORMAL (130-450,000) (NORMAL) 08/09/22 19:59 Platelet Morphology NORMAL APPEARANCE (NORMAL) 08/09/22 19:59 RBC Morph Micro Appear NORMAL APPEARANCE (NORMAL) 08/09/22 19:59 ESR 64 mm/Hr (0-15) H 08/09/22 19:59 Absolute Retic 0.046 10^6/uL (0.020-0.110) 08/24/22 04:19 Sodium 139 mmol/L (135-145) 09/12/22 04:42 Potassium 3.8 mmol/L (3.5-5.0) 09/12/22 04:42 Chloride 103 mmol/L (101-111) 09/12/22 04:42 Carbon Dioxide 27 mmol/L (21-32) 09/12/22 04:42 Anion Gap 9.0 (6-13) 09/12/22 04:42 BUN 32 mg/dL (6-20) H 09/12/22 04:42 Creatinine 0.9 mg/dL (0.6-1.2) 09/12/22 04:42 Estimated GFR (MDRD) 93 (>89) 09/12/22 04:42 Glucose 141 mg/dL (70-100) H 09/12/22 04:42 POC Whole Bld Glucose 144 mg/dL (70 - 100) H 09/13/22 07:20 Estimat Average Glucose 298 mg/dL (70-100) H 08/10/22 06:26 Hemoglobin A1c % 12.0 % (4.27-6.07) H 08/10/22 06:26 Lactic Acid 1.4 mmol/L (0.5-2.2) 08/09/22 21:46 Calcium 8.9 mg/dL (8.5-10.3) 09/12/22 04:42 Magnesium 2.4 mg/dL (1.7-2.8) 08/30/22 05:45 Iron 24 ug/dL (45-182) L 08/24/22 04:19 Iron 27 ug/dL (45-182) L 08/24/22 04:19 TIBC 273 ug/dL (250-450) 08/24/22 04:19 % Saturation 9 % (20-50) L 08/24/22 04:19 Transferrin 195 mg/dL (180-329) 08/24/22 04:19 Ferritin 95.4 ng/mL (23.9-336.2) 08/24/22 04:19 Total Bilirubin 1.4 mg/dL (0.2-1.0) H 08/10/22 06:26 AST 22 IU/L (10-42) 08/10/22 06:26 ALT 21 IU/L (10-60) 08/10/22 06:26 Alkaline Phosphatase 113 IU/L (42-121) 08/10/22 06:26 Lactate Dehydrogenase 100 IU/L (91-225) 08/24/22 04:19 C-Reactive Protein 2.3 mg/dL (0-1.0) H 09/12/22 04:42 Total Protein 6.6 g/dL (6.7-8.2) L 08/10/22 06:26 Albumin 2.7 g/dL (3.2-5.5) L 08/10/22 06:26 Globulin 3.9 g/dL (2.1-4.2) 08/10/22 06:26 Albumin/Globulin Ratio 0.7 (1.0-2.2) L 08/10/22 06:26 Triglycerides 136 mg/dL (-149) 08/10/22 06:26 Cholesterol 153 mg/dL (-199) 08/10/22 06:26 LDL Cholesterol, Calc 97 mg/dL (-129) 08/10/22 06:26 VLDL Cholesterol 27 mg/dL 08/10/22 06:26 HDL Cholesterol 29 mg/dL (60-) L 08/10/22 06:26 LDL/HDL Ratio 3.3 (<3.6) 08/10/22 06:26 Cholesterol/HDL Ratio 5.3 (<5.0) 08/10/22 06:26 Lipase 23 U/L (22-51) 08/09/22 19:59 Vitamin B12 201 pg/mL (180-914) 08/24/22 04:19 Procalcitonin 0.84 ng/mL (<0.5) H 08/09/22 21:46 TSH 0.84 uIU/mL (0.34-5.60) 08/10/22 06:26 Urine Color DARK YELLOW 08/09/22 20:27 Urine Clarity CLEAR (CLEAR) 08/09/22 20:27 Urine pH 5.5 PH (5.0-7.5) 08/09/22 20:27 Ur Specific Decker 1.015 (1.002-1.030) 08/09/22 20:27 Urine Protein NEGATIVE mg/dL (NEGATIVE) 08/09/22 20:27 Urine Glucose (UA) >=1000 mg/dL (NEGATIVE) H 08/09/22 20:27 Urine Ketones TRACE mg/dL (NEGATIVE) 08/09/22 20:27 Urine Occult Blood TRACE-INTA (NEGATIVE) 08/09/22 20: Urine Nitrite NEGATIVE (NEGATIVE) 08/09/22 20: Urine Bilirubin SMALL (NEGATIVE) H 08/09/22 20:27 Urine Urobilinogen 2 E.U./dL (NORMAL) H 08/09/22 20:27 Ur Leukocyte Esterase NEGATIVE (NEGATIVE) 08/09/22 20:27 Ur Microscopic Review NOT INDICATED 08/09/22 20:27 Urine Culture Comments NOT INDICATED 08/09/22 20:27 Nasal Adenovirus (PCR) NOT DETECTED 08/17/22 16:30 Nasal B. parapertussis DNA (PCR) NOT DETECTED 08/17/22 16:30 Nasal Coronavir 229E PCR NOT DETECTED 08/17/22 16:30 Nasal Coronavir HKU1 PCR NOT DETECTED 08/17/22 16:30 Nasal Coronavir NL63 PCR NOT DETECTED 08/17/22 16:30 Nasal Coronavir OC43 PCR NOT DETECTED 08/17/22 16:30 Nasal Enterovir/Rhinovir PCR NOT DETECTED 08/17/22 16:30 Nasal Influenza B PCR NOT DETECTED 08/17/22 16:30 Nasal Influenza A PCR NOT DETECTED 08/17/22 16:30 Nasal Parainfluen 1 PCR NOT DETECTED 08/17/22 16:30 Nasal Parainfluen 2 PCR NOT DETECTED 08/17/22 16:30 Nasal Parainfluen 3 PCR NOT DETECTED 08/17/22 16:30 Nasal Parainfluen 4 PCR NOT DETECTED 08/17/22 16:30 Nasal RSV (PCR) NOT DETECTED 08/17/22 16:30 Nasal B.pertussis DNA PCR NOT DETECTED 08/17/22 16:30 Nasal C.pneumoniae (PCR) NOT DETECTED 08/17/22 16:30 Yannick Human Metapneumo PCR NOT DETECTED 08/17/22 16:30 Nasal M.pneumoniae (PCR) NOT DETECTED 08/17/22 16:30 Nasal SARS-CoV-2 (PCR) NOT DETECTED 08/17/22 16:30 Last Dose Date 08/14/2022 08/14/22 13:55 Last Dose Time 0336 08/14/22 13:55 Vancomycin Trough 16.6 ug/mL (10.0-20.0) 08/14/22 13:55 Sepsis Event Note (H) - Evaluation Current Stage of Sepsis: Ruled out
[2022-09-13] MEDS: SYSTANE EYE DROPS EACHEYE PRN ×2 (09:14→21:10)
[2022-09-13] MEDS: ERTAPENEM 1 GM in SODIUM CHLORIDE 0.9% MINIBAG 100 ML IV SCH (09:21)
[2022-09-13] MEDS: SODIUM CHLORIDE FLUSH 0.9% 10 ML SYRINGE IVP SCH ×3 (09:22→23:52)
[2022-09-13] MEDS: NYSTATIN CREAM 15 GM TUBE TOP SCH ×2 (09:22→21:10)
[2022-09-13] MEDS: SODIUM CHLORIDE FLUSH 0.9% 10 ML SYRINGE IVP PRN ×2 (16:59→23:52)
[2022-09-13] MEDS: IBUPROFEN 400 MG TABLET PO PRN (21:12)
[2022-09-14] MEDS: PANTOPRAZOLE 40 MG TABLET PO SCH (06:40)
[2022-09-14] MEDS: IBUPROFEN 400 MG TABLET PO PRN ×2 (06:40→20:29)
[2022-09-14] MEDS: SACCHAROMYCES BOULARDII 250 MG CAPSULE PO SCH ×2 (08:31→17:28)
[2022-09-14] MEDS: LOSARTAN 50 MG TABLET PO SCH ×2 (08:31→20:29)
[2022-09-14] MEDS: METOPROLOL TARTRATE 25 MG TABLET PO SCH ×2 (08:31→20:29)
[2022-09-14] MEDS: ASCORBIC ACID 500 MG TABLET PO SCH (08:31)
[2022-09-14] MEDS: hydroCHLOROthiazide 25 MG TABLET PO SCH (08:31)
[2022-09-14] MEDS: ENOXAPARIN 40 MG/0.4 ML SYRINGE SUBQ SCH ×2 (08:32→20:29)
[2022-09-14] MEDS: MULTIVITAMIN W/MINERALS TABLET PO SCH (08:32)
[2022-09-14] MEDS: INSULIN LISPRO 300 UNIT/3 ML PEN SUBQ SCH ×7 (08:33→20:31)
[2022-09-14] MEDS: INSULIN GLARGINE-YFGN 300 UNIT/3 ML PEN SUBQ SCH ×2 (08:34→20:30)
[2022-09-14] MEDS: ERTAPENEM 1 GM in SODIUM CHLORIDE 0.9% MINIBAG 100 ML IV SCH (08:36)
[2022-09-14] MEDS: NYSTATIN CREAM 15 GM TUBE TOP SCH ×2 (08:37→20:30)
[2022-09-14] MEDS: SODIUM CHLORIDE FLUSH 0.9% 10 ML SYRINGE IVP SCH ×2 (08:37→17:29)
[2022-09-14] MEDS: metFORMIN 850 MG TABLET PO SCH ×3 (09:26→17:28)
[2022-09-14] MEDS: DOCUSATE SODIUM 250 MG CAPSULE PO SCH (09:26)
[2022-09-14] MEDS: SODIUM CHLORIDE FLUSH 0.9% 10 ML SYRINGE IVP PRN (17:29)
--- NOTE | 2022-09-14 17:53 | PROVIDER PROGRESS NOTE ---
Assessment/Plan - Problem List (1) Chronic diabetic ulcer of left foot determined by examination Assessment/Plan: He has a Diabetic foot infection with osteomyelitis and had 3 foot ulcers, now just 2 ulcers and had cellulitis that has resolved. He was seen at [facility] by Dr Wren who applied a Wound Vac on 09/11 Due to the new bulky wound VAC machine and attachment on the skin of his left lateral leg, he got very poor sleep. Rudy prn was ordered Labs were reviewed. He gets labs done only weekly, on Fridays. The WBC was stable (he never had an elevated white count). His CRP had decreased even further to 2.3 from 4.2 a week ago. Plan: Now it is down to wound healing with good wound care and finishing 4 weeks of iv antibx. His last day of IV antibiotics will be on 09/18. Will plan to give 1 day of oral antibiotics on Tuesday 09/19 to make sure there is no worsening on oral antibx. Then the PICC line will be removed and he can be discharged on 09/20. This entire plan was discussed with the patient and his brother Wai today 09/14 The knee scooter, that can handle 350 lbs, arrived today. We will ask PT to re- eval pt to teach him how to use it. Today is Sun and we have no PT here until tomorrow, Thu. The pt is requesting reeval by PT for left foot exercises also, will request that. Cont prn Monchoien to help him sleep. Will stop [place]. Will also cont the no awakening pt between 0000 and 0600. We need the detailed plan of how Dr. Wren will handle wound VAC and also visits to [facility] after [facility]. (2) Type 2 diabetes mellitus, uncontrolled, with complications of neuropathy, with hyperglycemia, on long-term insulin. On 09/09 he requested to restart Metformin. Med list was reviewed and he took 850 BID and it was restarted. During the stay he has lost about 4 kg of weight. He is in a carb controlled diet. Wound healing has occurred very nicely. We cut back the dinner lispro dose from 8->5 units and lunch lispro dose from 8->5. Continued the 10 units with breakfast. On 09/09, as we restarted Metformin, I decreased his am Lantus from 40 to 30 and decreased his meal doses down to 4, 2, 2, but glucose thalia to the high 200s. On 09/10, I continued the am Lantus dose of 30, but increased the mealtime doses from 4, 2, 2>> 6, 4, 4. All labs were reviewed. With that schedule, his glu are now 140-209, higher in the afternoon. On 09/12, I changed mealtime doses to 8, 4, 4. Today glu were 199, 166, 109. Today 09/14, the brother mentioned he has 6 mos worth of Insulin 70/30 at home. Plan: Cont Metformin BID Continue Lantus 30 in am and mealtime Lispro 8, 4, 4. Will ask Dietary to assure he is planning on taking newly ordered Lantus, and not the 70/30 Insulin, after [facility]. - Current Meds Current Meds: Current Medications Generic Name Dose Route Start Last Admin Trade Name Freq PRN Reason Stop Dose Admin Acetaminophen 650 mg 08/09/22 21:56 08/23/22 05:15 Acetaminophen 325 Mg Tablet PO 650 mg Q4HR PRN Administration Pain 1 to 4, or Fever Ascorbic Acid 500 mg 08/24/22 08:00 09/14/22 08:31 Ascorbic Acid 500 Mg Tablet PO 500 mg DAILYWM ADRI Administration Carboxymethylcellulose 1 drops 08/10/22 01:01 08/22/22 17:05 Carboxymethylcellulose Ophth Drops EACHEYE 1 drops PRN PRN Administration Dry Eye Docusate Sodium 250 - 500 mg 09/14/22 09:00 09/14/22 09:26 Docusate Sodium 250 Mg Capsule PO 250 mg DAILY ADRI Administration Enoxaparin Sodium 40 mg 08/22/22 09:00 09/14/22 08:32 Enoxaparin 40 Mg/0.4 Ml Syringe SUBQ 40 mg BID ADRI Administration Hydrochlorothiazide 25 mg 08/17/22 09:00 09/14/22 08:31 Hydrochlorothiazide 25 Mg Tablet PO 25 mg DAILY ADRI Administration Ertapenem 1 gm/ Sodium 100 mls @ 200 mls/hr 08/20/22 12:00 09/14/22 09:21 Chloride IV Infused DAILY ADRI Infusion Ibuprofen 400 mg 08/23/22 14:27 09/14/22 06:40 Ibuprofen 400 Mg Tablet PO 400 mg Q6HR PRN Administration PAIN Insulin Glargine-yfgn 30 unit 09/10/22 09:00 09/14/22 08:34 Insulin Glargine-Yfgn 300 Unit/3 Ml Pen SUBQ 30 unit DAILY ADRI Administration Insulin Glargine-yfgn 5 unit 09/09/22 21:00 09/13/22 21:12 Insulin Glargine-Yfgn 300 Unit/3 Ml Pen SUBQ 5 unit QPM ADRI Administration Insulin Human Lispro 1 - 9 unit 08/22/22 17:00 09/14/22 17:28 Insulin Lispro 300 Unit/3 Ml Pen SUBQ Not Given 0800,1200,1700,2100 [facility] Protocol Insulin Human Lispro 4 unit 09/11/22 12:00 09/14/22 12:07 Insulin Lispro 300 Unit/3 Ml Pen SUBQ 4 unit 1200 ADRI Administration Insulin Human Lispro 4 unit 09/10/22 17:00 09/14/22 17:28 Insulin Lispro 300 Unit/3 Ml Pen SUBQ 4 unit 1700 ADRI Administration Insulin Human Lispro 8 unit 09/13/22 08:00 09/14/22 08:34 Insulin Lispro 300 Unit/3 Ml Pen SUBQ 8 unit 0800 ADRI Administration Loratadine 10 mg 08/31/22 07:44 09/01/22 05:56 Loratadine 10 Mg Tablet PO 10 mg DAILY PRN Administration ITCHING Losartan Potassium 50 mg 08/10/22 09:00 09/14/22 08:31 Losartan 50 Mg Tablet PO 50 mg BID ADRI Administration Metformin HCl 850 mg 09/09/22 17:00 09/14/22 17:28 Metformin 850 Mg Tablet PO 850 mg TIDWM ADRI Administration Metoclopramide HCl 5 mg 08/11/22 22:37 08/11/22 23:00 Metoclopramide 10 Mg/2 Ml Vial IVP 5 mg Q6HR PRN Administration NEEDED PER PROVIDER ORDERS Metoprolol Tartrate 25 mg 08/10/22 09:00 09/14/22 08:31 Metoprolol Tartrate 25 Mg Tablet PO 09/14/22 23:55 25 mg BID ADRI Administration Multi-Ingred Cream/Lotion/Oil/Oint 1 applic 08/22/22 15:55 08/23/22 20:49 Mineral Oil/Petrolat Ophth Oint EACHEYE 1 applic QPM PRN Administration Dry Eye Multi-Ingredient Ointment 1 applic 08/13/22 18:12 08/13/22 18:46 Zinc Oxide 20% Oint 30 Gm Tube TOP 1 applic PRN PRN Administration Skin Care Multivitamins/Minerals 1 tab 08/15/22 09:00 09/14/22 08:32 Multivitamin W/Minerals Tablet PO 1 tab DAILYWM ADRI Administration Nystatin 1 applic 09/03/22 13:00 09/14/22 08:37 Nystatin Cream 15 Gm Tube TOP 1 applic BID ADRI Administration Ondansetron HCl 4 mg 08/09/22 21:56 08/16/22 08:38 Ondansetron 4 Mg/2 Ml Vial IVP 4 mg Q6HR PRN Administration Nausea / Vomiting Pantoprazole Sodium 40 mg 08/10/22 07:00 09/14/22 06:40 Pantoprazole 40 Mg Tablet PO 40 mg QDAC ADRI Administration Systane Eye Drops 1 each 08/24/22 16:00 09/13/22 21:10 EACHEYE 1 each PRN PRN Administration DRY EYE Saccharomyces Boulardii 250 mg 08/17/22 17:00 09/14/22 17:28 Saccharomyces Boulardii 250 Mg Capsule PO 250 mg BIDWM ADRI Administration Sodium Chloride 10 ml 08/09/22 21:56 09/14/22 17:29 Sodium Chloride Flush 0.9% 10 Ml Syringe IVP 10 ml PRN PRN Administration NEEDED PER PROVIDER ORDERS Sodium Chloride 10 ml 08/10/22 01:00 09/14/22 17:29 Sodium Chloride Flush 0.9% 10 Ml Syringe IVP 10 ml 0100,0900,1700 ADRI Administration Sodium Chloride 20 ml 08/25/22 03:57 08/30/22 05:40 Sodium Chloride Flush 0.9% 10 Ml Syringe IVP 20 ml PRN PRN Administration After Blood Draw Throat Lozenges 1 lozenge 08/10/22 01:01 08/17/22 16:28 Benzocaine/Menthol Lozenge MM 1 lozenge Q2HR PRN Administration Throat pain - Lab Result Fish Bone Diagrams: 09/12/22 04:42 09/12/22 04:42 - Additional Planning My Orders: My Active Orders 09/13/22 18:32 Vital Signs- Do Not Awaken For [RC] HS 09/14/22 09:00 Docusate Sodium 250Mg Capsule [Colace 250Mg Capsule] 250 - 500 mg PO DAILY 09/14/22 11:35 Zolpidem [Ambien] 2.5 mg PO QPM PRN 09/15/22 Evaluate and Treat PT [PT] Routine Subjective - Subjective Patient Reports: Resting Comfortably, No Complaints, Other (Appears SOB, when used the scooter going down the long hallway of Pod 2.) Objective Vital Signs: Vital Signs - 24 hr 09/13/22 09/13/22 09/13/22 21:10 21:11 23:45 Temperature 37.2 C Heart Rate [ 88 Brachial] Heart Rate [ 74 Radial] Respiratory 16 16 Rate Blood Pressure 114/64 Blood Pressure 114/64 116/64 [Left Brachial artery] Blood Pressure [Right Radial artery] O2 Saturation 99 09/14/22 09/14/22 09/14/22 07:25 08:31 16:00 Temperature 36.3 C L 36.9 C Heart Rate [ 70 Brachial] Heart Rate [ 70 Radial] Respiratory 16 18 Rate Blood Pressure 108/74 Blood Pressure 108/74 [Left Brachial artery] Blood Pressure 137/79 H [Right Radial artery] O2 Saturation 100 98 Oxygen O2 Source Room air I&O (Last 24 Hrs): Intake and Output Totals x24h 09/12/22 09/13/22 09/15/22 23:59 23:59 00:59 Intake Total 2745 1872 1590 Output Total 1250 1175 1050 Balance 1495 697 540 General: Alert, Oriented x3 HEENT: Atraumatic, EOMI, Mucous membr. moist/pink Neck: Supple, No JVD Neuro: Alert Cardiovascular: Regular rate Respiratory: No respiratory distress Abdomen: Soft, Other (Obese with a pannus) Extremities: No clubbing, Other (Mild edema of L dorsal foot, without redness or tenderness, a Wound Vac is in place, covering the ulcers) - Results Results: Laboratory Results WBC 8.4 x10^3/uL (4.8-10.8) 09/12/22 04:42 RBC 4.28 10^6/uL (4.70-6.10) L 09/12/22 04:42 Hgb 11.0 g/dL (14.0-18.0) L 09/12/22 04:42 Hct 34.1 % (42.0-52.0) L 09/12/22 04:42 MCV 79.7 fL (80.0-94.0) L 09/12/22 04:42 MCH 25.7 pg (27.0-31.0) L 09/12/22 04:42 MCHC 32.3 g/dL (32.0-36.0) 09/12/22 04:42 RDW 14.2 % (12.0-15.0) 09/12/22 04:42 Plt Count 360 10^3/uL (130-450) 09/12/22 04:42 MPV 9.5 fL (7.4-11.4) 09/12/22 04:42 Reticulocyte % (Auto) 1.17 % (0.5-2.3) 08/24/22 04:19 Neut # (Auto) 5.2 10^3/uL (1.5-6.6) 09/12/22 04:42 Lymph # (Auto) 2.3 10^3/uL (1.5-3.5) 09/12/22 04:42 [place] # (Auto) 0.7 10^3/uL (0.0-1.0) 09/12/22 04:42 Eos # (Auto) 0.2 10^3/uL (0.0-0.7) 09/12/22 04:42 Baso # (Auto) 0.0 10^3/uL (0.0-0.1) 09/12/22 04:42 Absolute Nucleated RBC 0.00 x10^3/uL 09/12/22 04:42 Total Counted 100 08/09/22 19:59 Band Neuts % (Manual) 2 % (0-10) 08/09/22 19:59 Abnorm Lymph % (Manual) 0 % 08/09/22 19:59 Nucleated RBC % 0.0 /100WBC 09/12/22 04:42 Neutrophils # (Manual) 18.7 10^3/uL (1.5-6.6) H 08/09/22 19:59 Lymphocytes # (Manual) 1.3 10^3/uL (1.5-3.5) L 08/09/22 19:59 Monocytes # (Manual) 1.3 10^3/uL (0.0-1.0) H 08/09/22 19:59 Eosinophils # (Manual) 0.0 10^3/uL (0-0.7) 08/09/22 19:59 Basophils # (Manual) 0.0 10^3/uL (0-0.1) 08/09/22 19:59 Differential Comment MANUAL DIFFERENTIAL 08/09/22 19:59 WBC Morphology 2+ TOXIC GRANULATION (NORMAL) 08/09/22 19:59 Platelet Estimate NORMAL (130-450,000) (NORMAL) 08/09/22 19:59 Platelet Morphology NORMAL APPEARANCE (NORMAL) 08/09/22 19:59 RBC Morph Micro Appear NORMAL APPEARANCE (NORMAL) 08/09/22 19:59 ESR 64 mm/Hr (0-15) H 08/09/22 19:59 Absolute Retic 0.046 10^6/uL (0.020-0.110) 08/24/22 04:19 Sodium 139 mmol/L (135-145) 09/12/22 04:42 Potassium 3.8 mmol/L (3.5-5.0) 09/12/22 04:42 Chloride 103 mmol/L (101-111) 09/12/22 04:42 Carbon Dioxide 27 mmol/L (21-32) 09/12/22 04:42 Anion Gap 9.0 (6-13) 09/12/22 04:42 BUN 32 mg/dL (6-20) H 09/12/22 04:42 Creatinine 0.9 mg/dL (0.6-1.2) 09/12/22 04:42 Estimated GFR (MDRD) 93 (>89) 09/12/22 04:42 Glucose 141 mg/dL (70-100) H 09/12/22 04:42 POC Whole Bld Glucose 160 mg/dL (70 - 100) H 09/14/22 11:02 Estimat Average Glucose 298 mg/dL (70-100) H 08/10/22 06:26 Hemoglobin A1c % 12.0 % (4.27-6.07) H 08/10/22 06:26 Lactic Acid 1.4 mmol/L (0.5-2.2) 08/09/22 21:46 Calcium 8.9 mg/dL (8.5-10.3) 09/12/22 04:42 Magnesium 2.4 mg/dL (1.7-2.8) 08/30/22 05:45 Iron 24 ug/dL (45-182) L 08/24/22 04:19 Iron 27 ug/dL (45-182) L 08/24/22 04:19 TIBC 273 ug/dL (250-450) 08/24/22 04:19 % Saturation 9 % (20-50) L 08/24/22 04:19 Transferrin 195 mg/dL (180-329) 08/24/22 04:19 Ferritin 95.4 ng/mL (23.9-336.2) 08/24/22 04:19 Total Bilirubin 1.4 mg/dL (0.2-1.0) H 08/10/22 06:26 AST 22 IU/L (10-42) 08/10/22 06:26 ALT 21 IU/L (10-60) 08/10/22 06:26 Alkaline Phosphatase 113 IU/L (42-121) 08/10/22 06:26 Lactate Dehydrogenase 100 IU/L (91-225) 08/24/22 04:19 C-Reactive Protein 2.3 mg/dL (0-1.0) H 09/12/22 04:42 Total Protein 6.6 g/dL (6.7-8.2) L 08/10/22 06:26 Albumin 2.7 g/dL (3.2-5.5) L 08/10/22 06:26 Globulin 3.9 g/dL (2.1-4.2) 08/10/22 06:26 Albumin/Globulin Ratio 0.7 (1.0-2.2) L 08/10/22 06:26 Triglycerides 136 mg/dL (-149) 08/10/22 06:26 Cholesterol 153 mg/dL (-199) 08/10/22 06:26 LDL Cholesterol, Calc 97 mg/dL (-129) 08/10/22 06:26 VLDL Cholesterol 27 mg/dL 08/10/22 06:26 HDL Cholesterol 29 mg/dL (60-) L 08/10/22 06:26 LDL/HDL Ratio 3.3 (<3.6) 08/10/22 06:26 Cholesterol/HDL Ratio 5.3 (<5.0) 08/10/22 06:26 Lipase 23 U/L (22-51) 08/09/22 19:59 Vitamin B12 201 pg/mL (180-914) 08/24/22 04:19 Procalcitonin 0.84 ng/mL (<0.5) H 08/09/22 21:46 TSH 0.84 uIU/mL (0.34-5.60) 08/10/22 06:26 Urine Color DARK YELLOW 08/09/22 20:27 Urine Clarity CLEAR (CLEAR) 08/09/22 20:27 Urine pH 5.5 PH (5.0-7.5) 08/09/22 20:27 Ur Specific [place] 1.015 (1.002-1.030) 08/09/22 20:27 Urine Protein NEGATIVE mg/dL (NEGATIVE) 08/09/22 20:27 Urine Glucose (UA) >=1000 mg/dL (NEGATIVE) H 08/09/22 20:27 Urine Ketones TRACE mg/dL (NEGATIVE) 08/09/22 20:27 Urine Occult Blood TRACE-INTA (NEGATIVE) 08/09/22 20:27 Urine Nitrite NEGATIVE (NEGATIVE) 08/09/22 20:27 Urine Bilirubin SMALL (NEGATIVE) H 08/09/22 20:27 Urine Urobilinogen 2 E.U./dL (NORMAL) H 08/09/22 20:27 Ur Leukocyte Esterase NEGATIVE (NEGATIVE) 08/09/22 20:27 Ur Microscopic Review NOT INDICATED 08/09/22 20:27 Urine Culture Comments NOT INDICATED 08/09/22 20:27 Nasal Adenovirus (PCR) NOT DETECTED 08/17/22 16:30 Nasal B. parapertussis DNA (PCR) NOT DETECTED 08/17/22 16:30 Nasal Coronavir 229E PCR NOT DETECTED 08/17/22 16:30 Nasal Coronavir HKU1 PCR NOT DETECTED 08/17/22 16:30 Nasal Coronavir NL63 PCR NOT DETECTED 08/17/22 16:30 Nasal Coronavir OC43 PCR NOT DETECTED 08/17/22 16:30 Nasal Enterovir/Rhinovir PCR NOT DETECTED 08/17/22 16:30 Nasal Influenza B PCR NOT DETECTED 08/17/22 16:30 Nasal Influenza A PCR NOT DETECTED 08/17/22 16:30 Nasal Parainfluen 1 PCR NOT DETECTED 08/17/22 16:30 Nasal Parainfluen 2 PCR NOT DETECTED 08/17/22 16:30 Nasal Parainfluen 3 PCR NOT DETECTED 08/17/22 16:30 Nasal Parainfluen 4 PCR NOT DETECTED 08/17/22 16:30 Nasal RSV (PCR) NOT DETECTED 08/17/22 16:30 Nasal B.pertussis DNA PCR NOT DETECTED 08/17/22 16:30 Nasal C.pneumoniae (PCR) NOT DETECTED 08/17/22 16:30 Yannick Human Metapneumo PCR NOT DETECTED 08/17/22 16:30 Nasal M.pneumoniae (PCR) NOT DETECTED 08/17/22 16:30 Nasal SARS-CoV-2 (PCR) NOT DETECTED 08/17/22 16:30 Last Dose Date 08/14/2022 08/14/22 13:55 Last Dose Time 0336 08/14/22 13:55 Vancomycin Trough 16.6 ug/mL (10.0-20.0) 08/14/22 13:55 Sepsis Event Note (H) - Evaluation Current Stage of Sepsis: Ruled out
[2022-09-14] MEDS: SYSTANE EYE DROPS EACHEYE PRN (20:29)
[2022-09-14] MEDS: ZOLPIDEM 5 MG TABLET PO PRN (22:14)
[2022-09-15] MEDS: SODIUM CHLORIDE FLUSH 0.9% 10 ML SYRINGE IVP SCH ×3 (05:56→16:17)
[2022-09-15] MEDS: SODIUM CHLORIDE FLUSH 0.9% 10 ML SYRINGE IVP PRN ×2 (05:56→16:17)
[2022-09-15] MEDS: PANTOPRAZOLE 40 MG TABLET PO SCH (05:56)
[2022-09-15] MEDS: INSULIN LISPRO 300 UNIT/3 ML PEN SUBQ SCH ×7 (08:18→21:28)
[2022-09-15] MEDS: INSULIN GLARGINE-YFGN 300 UNIT/3 ML PEN SUBQ SCH ×2 (08:20→21:29)
[2022-09-15] MEDS: SACCHAROMYCES BOULARDII 250 MG CAPSULE PO SCH ×2 (08:23→17:14)
[2022-09-15] MEDS: DOCUSATE SODIUM 250 MG CAPSULE PO SCH (08:23)
[2022-09-15] MEDS: MULTIVITAMIN W/MINERALS TABLET PO SCH (08:23)
[2022-09-15] MEDS: LOSARTAN 50 MG TABLET PO SCH ×2 (08:23→21:28)
[2022-09-15] MEDS: ASCORBIC ACID 500 MG TABLET PO SCH (08:24)
[2022-09-15] MEDS: ENOXAPARIN 40 MG/0.4 ML SYRINGE SUBQ SCH ×2 (08:25→21:28)
[2022-09-15] MEDS: ERTAPENEM 1 GM in SODIUM CHLORIDE 0.9% MINIBAG 100 ML IV SCH (08:26)
[2022-09-15] MEDS: hydroCHLOROthiazide 25 MG TABLET PO SCH (08:31)
[2022-09-15] MEDS: NYSTATIN CREAM 15 GM TUBE TOP SCH ×2 (08:33→21:30)
[2022-09-15] MEDS: metFORMIN 850 MG TABLET PO SCH ×3 (08:39→17:14)
[2022-09-15] MEDS: IBUPROFEN 400 MG TABLET PO PRN ×2 (16:17→21:36)
--- NOTE | 2022-09-15 20:30 | PROVIDER PROGRESS NOTE ---
Assessment/Plan - Problem List (1) Chronic diabetic ulcer of left foot determined by examination Assessment/Plan: He has a Diabetic foot infection with osteomyelitis and had 3 foot ulcers, now just 1 ulcer and had cellulitis that has resolved. He was seen at [facility] by Dr Wren who applied a Wound Vac on 09/11. Due to the new bulky wound VAC machine and attachment on the skin of his left lateral leg, he got very poor sleep the first night and appeared very tired. Rudy prn was ordered He gets labs done only weekly, on Fridays. The WBC was stable (he never had an elevated white count). His CRP had decreased even further to 2.3 from 4.2 a week ago. PT saw him in re-eval for left foot exercises today. The knee scooter, that can handle 350 lbs, arrived Sun. PT to re-see today also to teach him today how to use the scooter properly. Plan: Now it is down to wound healing with good wound care and finishing 4 weeks of iv antibx. His last day of IV antibiotics will be on 09/18. Will plan to give 1 day of oral antibiotics on Tuesday 09/19 to make sure there is no worsening on oral antibx. Then the PICC line will be removed and he can be discharged on 09/20. This entire plan was discussed with the patient and his brother Wai today 09/14 Cont prn Rudy to help him sleep. Will also cont the no awakening pt between 0000 and 0600. We need the detailed plan of how Dr. Wren will handle the wound VAC going forward and also what visits to [facility] are planned after [facility]. (2) Type 2 diabetes mellitus, uncontrolled, with complications of neuropathy, with hyperglycemia, on long-term insulin. On 09/09 he requested to restart Metformin. Med list was reviewed and he took 850 BID and it was restarted. During the stay he has lost about 4 kg of weight. He is in a carb controlled diet. Wound healing has occurred very nicely. We cut back the dinner lispro dose from 8->5 units and lunch lispro dose from 8->5. Continued the 10 units with breakfast. On 09/09, as we restarted Metformin, I decreased his am Lantus from 40 to 30 and decreased his meal doses down to 4, 2, 2, but glucose thalia to the high 200s. On 09/10, I continued the am Lantus dose of 30, but increased the mealtime doses from 4, 2, 2>> 6, 4, 4. All labs were reviewed. With that schedule, his glu are now 140-209, higher in the afternoon. On 09/12, I changed mealtime doses to 8, 4, 4. Glu were 104-180. On I spoke to the brother Wai in the room who mentioned that there is a 6-month supply of insulin 70/30 at home and he wonders if the patient will use that. Plan: Cont Metformin BID Continue Lantus 30 in am and mealtime Lispro 8, 4, 4. We will need to establish definitely if the patient wants to go back to insulin 70/30 or if he will use newly ordered pens. - Current Meds Current Meds: Current Medications Generic Name Dose Route Start Last Admin Trade Name Freq PRN Reason Stop Dose Admin Acetaminophen 650 mg 08/09/22 21:56 08/23/22 05:15 Acetaminophen 325 Mg Tablet PO 650 mg Q4HR PRN Administration Pain 1 to 4, or Fever Ascorbic Acid 500 mg 08/24/22 08:00 09/15/22 08:24 Ascorbic Acid 500 Mg Tablet PO 500 mg DAILYWM ADRI Administration Carboxymethylcellulose 1 drops 08/10/22 01:01 08/22/22 17:05 Carboxymethylcellulose Ophth Drops EACHEYE 1 drops PRN PRN Administration Dry Eye Docusate Sodium 250 - 500 mg 09/14/22 09:00 09/15/22 08:23 Docusate Sodium 250 Mg Capsule PO 250 mg DAILY ADRI Administration Enoxaparin Sodium 40 mg 08/22/22 09:00 09/15/22 08:25 Enoxaparin 40 Mg/0.4 Ml Syringe SUBQ 40 mg BID ADRI Administration Hydrochlorothiazide 25 mg 08/17/22 09:00 09/15/22 08:31 Hydrochlorothiazide 25 Mg Tablet PO 25 mg DAILY ADRI Administration Ertapenem 1 gm/ Sodium 100 mls @ 200 mls/hr 08/20/22 12:00 09/15/22 10:27 Chloride IV Infused DAILY ADRI Infusion Ibuprofen 400 mg 08/23/22 14:27 09/15/22 16:17 Ibuprofen 400 Mg Tablet PO 400 mg Q6HR PRN Administration PAIN Insulin Glargine-yfgn 30 unit 09/10/22 09:00 09/15/22 08:20 Insulin Glargine-Yfgn 300 Unit/3 Ml Pen SUBQ 30 unit DAILY ADRI Administration Insulin Glargine-yfgn 5 unit 09/09/22 21:00 09/14/22 20:30 Insulin Glargine-Yfgn 300 Unit/3 Ml Pen SUBQ 5 unit QPM ADRI Administration Insulin Human Lispro 1 - 9 unit 08/22/22 17:00 09/15/22 17:15 Insulin Lispro 300 Unit/3 Ml Pen SUBQ 1 unit 0800,1200,1700,2100 ADRI Administration Protocol Insulin Human Lispro 4 unit 09/11/22 12:00 09/15/22 11:53 Insulin Lispro 300 Unit/3 Ml Pen SUBQ 4 unit 1200 ADRI Administration Insulin Human Lispro 4 unit 09/10/22 17:00 09/15/22 17:15 Insulin Lispro 300 Unit/3 Ml Pen SUBQ 4 unit 1700 ADRI Administration Insulin Human Lispro 8 unit 09/13/22 08:00 09/15/22 08:18 Insulin Lispro 300 Unit/3 Ml Pen SUBQ 8 unit 0800 ADRI Administration Loratadine 10 mg 08/31/22 07:44 09/01/22 05:56 Loratadine 10 Mg Tablet PO 10 mg DAILY PRN Administration ITCHING Losartan Potassium 50 mg 08/10/22 09:00 09/15/22 08:23 Losartan 50 Mg Tablet PO 50 mg BID ADRI Administration Metformin HCl 850 mg 09/09/22 17:00 09/15/22 17:14 Metformin 850 Mg Tablet PO 850 mg TIDWM ADRI Administration Metoclopramide HCl 5 mg 08/11/22 22:37 08/11/22 23:00 Metoclopramide 10 Mg/2 Ml Vial IVP 5 mg Q6HR PRN Administration NEEDED PER PROVIDER ORDERS Multi-Ingred Cream/Lotion/Oil/Oint 1 applic 08/22/22 15:55 08/23/22 20:49 Mineral Oil/Petrolat Ophth Oint EACHEYE 1 applic QPM PRN Administration Dry Eye Multi-Ingredient Ointment 1 applic 08/13/22 18:12 08/13/22 18:46 Zinc Oxide 20% Oint 30 Gm Tube TOP 1 applic PRN PRN Administration Skin Care Multivitamins/Minerals 1 tab 08/15/22 09:00 09/15/22 08:23 Multivitamin W/Minerals Tablet PO 1 tab DAILYWM ADRI Administration Nystatin 1 applic 09/03/22 13:00 09/15/22 08:33 Nystatin Cream 15 Gm Tube TOP 1 applic BID ADRI Administration Ondansetron HCl 4 mg 08/09/22 21:56 08/16/22 08:38 Ondansetron 4 Mg/2 Ml Vial IVP 4 mg Q6HR PRN Administration Nausea / Vomiting Pantoprazole Sodium 40 mg 08/10/22 07:00 09/15/22 05:56 Pantoprazole 40 Mg Tablet PO 40 mg QDAC ADRI Administration Systane Eye Drops 1 each 08/24/22 16:00 09/14/22 20:29 EACHEYE 1 each PRN PRN Administration DRY EYE Saccharomyces Boulardii 250 mg 08/17/22 17:00 09/15/22 17:14 Saccharomyces Boulardii 250 Mg Capsule PO 250 mg BIDWM ADRI Administration Sodium Chloride 10 ml 08/09/22 21:56 09/15/22 16:17 Sodium Chloride Flush 0.9% 10 Ml Syringe IVP 10 ml PRN PRN Administration NEEDED PER PROVIDER ORDERS Sodium Chloride 10 ml 08/10/22 01:00 09/15/22 16:17 Sodium Chloride Flush 0.9% 10 Ml Syringe IVP 10 ml 0100,0900,1700 ADRI Administration Sodium Chloride 20 ml 08/25/22 03:57 08/30/22 05:40 Sodium Chloride Flush 0.9% 10 Ml Syringe IVP 20 ml PRN PRN Administration After Blood Draw Throat Lozenges 1 lozenge 08/10/22 01:01 08/17/22 16:28 Benzocaine/Menthol Lozenge MM 1 lozenge Q2HR PRN Administration Throat pain Zolpidem Tartrate 2.5 mg 09/14/22 11:35 09/14/22 22:14 Zolpidem 5 Mg Tablet PO 2.5 mg QPM PRN Administration Insomnia - Lab Result Fish Bone Diagrams: 09/12/22 04:42 09/12/22 04:42 - Additional Planning My Orders: My Active Orders 09/15/22 Evaluate and Treat PT [PT] Routine Evaluate and Treat PT [PT] Routine Subjective - Subjective Patient Reports: Resting Comfortably, No Complaints Objective Vital Signs: Vital Signs - 24 hr 09/14/22 09/14/22 09/15/22 20:29 23:58 08:00 Temperature 36.7 C 36.3 C L Heart Rate [ Brachial] Heart Rate [ 76 67 Radial] Respiratory 18 18 Rate Blood Pressure 137/67 H Blood Pressure 120/59 L [Left Brachial artery] Blood Pressure 133/75 H [Right Brachial artery] O2 Saturation 100 98 09/15/22 16:10 Temperature 36.8 C Heart Rate [ 72 Brachial] Heart Rate [ Radial] Respiratory 19 Rate Blood Pressure Blood Pressure 122/76 [Left Brachial artery] Blood Pressure [Right Brachial artery] O2 Saturation 98 Oxygen O2 Source Room air I&O (Last 24 Hrs): Intake and Output Totals x24h 09/13/22 09/14/22 09/15/22 22:59 23:59 23:59 Intake Total 2590 Output Total 1100 Balance 1490 General: Alert, Oriented x3 HEENT: Mucous membr. moist/pink Neck: Supple Neuro: Alert Cardiovascular: Regular rate Respiratory: No respiratory distress Abdomen: Soft, Other (Obese) Extremities: No clubbing, Other (Mild edema of the left dorsum of the foot, no redness or tenderness. The wound VAC is attached over 2 open wounds on the lateral side of the foot. the 3rd ulcer wound has healed.) - Results Results: Laboratory Results WBC 8.4 x10^3/uL (4.8-10.8) 09/12/22 04:42 RBC 4.28 10^6/uL (4.70-6.10) L 09/12/22 04:42 Hgb 11.0 g/dL (14.0-18.0) L 09/12/22 04:42 Hct 34.1 % (42.0-52.0) L 09/12/22 04:42 MCV 79.7 fL (80.0-94.0) L 09/12/22 04:42 MCH 25.7 pg (27.0-31.0) L 09/12/22 04:42 MCHC 32.3 g/dL (32.0-36.0) 09/12/22 04:42 RDW 14.2 % (12.0-15.0) 09/12/22 04:42 Plt Count 360 10^3/uL (130-450) 09/12/22 04:42 MPV 9.5 fL (7.4-11.4) 09/12/22 04:42 Reticulocyte % (Auto) 1.17 % (0.5-2.3) 08/24/22 04:19 Neut # (Auto) 5.2 10^3/uL (1.5-6.6) 09/12/22 04:42 Lymph # (Auto) 2.3 10^3/uL (1.5-3.5) 09/12/22 04:42 Sauk # (Auto) 0.7 10^3/uL (0.0-1.0) 09/12/22 04:42 Eos # (Auto) 0.2 10^3/uL (0.0-0.7) 09/12/22 04:42 Baso # (Auto) 0.0 10^3/uL (0.0-0.1) 09/12/22 04:42 Absolute Nucleated RBC 0.00 x10^3/uL 09/12/22 04:42 Total Counted 100 08/09/22 19:59 Band Neuts % (Manual) 2 % (0-10) 08/09/22 19:59 Abnorm Lymph % (Manual) 0 % 08/09/22 19:59 Nucleated RBC % 0.0 /100WBC 09/12/22 04:42 Neutrophils # (Manual) 18.7 10^3/uL (1.5-6.6) H 08/09/22 19:59 Lymphocytes # (Manual) 1.3 10^3/uL (1.5-3.5) L 08/09/22 19:59 Monocytes # (Manual) 1.3 10^3/uL (0.0-1.0) H 08/09/22 19:59 Eosinophils # (Manual) 0.0 10^3/uL (0-0.7) 08/09/22 19:59 Basophils # (Manual) 0.0 10^3/uL (0-0.1) 08/09/22 19:59 Differential Comment MANUAL DIFFERENTIAL 08/09/22 19:59 WBC Morphology 2+ TOXIC GRANULATION (NORMAL) 08/09/22 19:59 Platelet Estimate NORMAL (130-450,000) (NORMAL) 08/09/22 19:59 Platelet Morphology NORMAL APPEARANCE (NORMAL) 08/09/22 19:59 RBC Morph Micro Appear NORMAL APPEARANCE (NORMAL) 08/09/22 19:59 ESR 64 mm/Hr (0-15) H 08/09/22 19:59 Absolute Retic 0.046 10^6/uL (0.020-0.110) 08/24/22 04:19 Sodium 139 mmol/L (135-145) 09/12/22 04:42 Potassium 3.8 mmol/L (3.5-5.0) 09/12/22 04:42 Chloride 103 mmol/L (101-111) 09/12/22 04:42 Carbon Dioxide 27 mmol/L (21-32) 09/12/22 04:42 Anion Gap 9.0 (6-13) 09/12/22 04:42 BUN 32 mg/dL (6-20) H 09/12/22 04:42 Creatinine 0.9 mg/dL (0.6-1.2) 09/12/22 04:42 Estimated GFR (MDRD) 93 (>89) 09/12/22 04:42 Glucose 141 mg/dL (70-100) H 09/12/22 04:42 POC Whole Bld Glucose 159 mg/dL (70 - 100) H 09/15/22 16:05 Estimat Average Glucose 298 mg/dL (70-100) H 08/10/22 06:26 Hemoglobin A1c % 12.0 % (4.27-6.07) H 08/10/22 06:26 Lactic Acid 1.4 mmol/L (0.5-2.2) 08/09/22 21:46 Calcium 8.9 mg/dL (8.5-10.3) 09/12/22 04:42 Magnesium 2.4 mg/dL (1.7-2.8) 08/30/22 05:45 Iron 24 ug/dL (45-182) L 08/24/22 04:19 Iron 27 ug/dL (45-182) L 08/24/22 04:19 TIBC 273 ug/dL (250-450) 08/24/22 04:19 % Saturation 9 % (20-50) L 08/24/22 04:19 Transferrin 195 mg/dL (180-329) 08/24/22 04:19 Ferritin 95.4 ng/mL (23.9-336.2) 08/24/22 04:19 Total Bilirubin 1.4 mg/dL (0.2-1.0) H 08/10/22 06:26 AST 22 IU/L (10-42) 08/10/22 06:26 ALT 21 IU/L (10-60) 08/10/22 06:26 Alkaline Phosphatase 113 IU/L (42-121) 08/10/22 06:26 Lactate Dehydrogenase 100 IU/L (91-225) 08/24/22 04:19 C-Reactive Protein 2.3 mg/dL (0-1.0) H 09/12/22 04:42 Total Protein 6.6 g/dL (6.7-8.2) L 08/10/22 06:26 Albumin 2.7 g/dL (3.2-5.5) L 08/10/22 06:26 Globulin 3.9 g/dL (2.1-4.2) 08/10/22 06:26 Albumin/Globulin Ratio 0.7 (1.0-2.2) L 08/10/22 06:26 Triglycerides 136 mg/dL (-149) 08/10/22 06:26 Cholesterol 153 mg/dL (-199) 08/10/22 06:26 LDL Cholesterol, Calc 97 mg/dL (-129) 08/10/22 06:26 VLDL Cholesterol 27 mg/dL 08/10/22 06:26 HDL Cholesterol 29 mg/dL (60-) L 08/10/22 06:26 LDL/HDL Ratio 3.3 (<3.6) 08/10/22 06:26 Cholesterol/HDL Ratio 5.3 (<5.0) 08/10/22 06:26 Lipase 23 U/L (22-51) 08/09/22 19:59 Vitamin B12 201 pg/mL (180-914) 08/24/22 04:19 Procalcitonin 0.84 ng/mL (<0.5) H 08/09/22 21:46 TSH 0.84 uIU/mL (0.34-5.60) 08/10/22 06:26 Urine Color DARK YELLOW 08/09/22 20:27 Urine Clarity CLEAR (CLEAR) 08/09/22 20:27 Urine pH 5.5 PH (5.0-7.5) 08/09/22 20:27 Ur Specific Mayer 1.015 (1.002-1.030) 08/09/22 20:27 Urine Protein NEGATIVE mg/dL (NEGATIVE) 08/09/22 20:27 Urine Glucose (UA) >=1000 mg/dL (NEGATIVE) H 08/09/22 20:27 Urine Ketones TRACE mg/dL (NEGATIVE) 08/09/22 20:27 Urine Occult Blood TRACE-INTA (NEGATIVE) 08/09/22 20:27 Urine Nitrite NEGATIVE (NEGATIVE) 08/09/22 20: Urine Bilirubin SMALL (NEGATIVE) H 08/09/22 20:27 Urine Urobilinogen 2 E.U./dL (NORMAL) H 08/09/22 20:27 Ur Leukocyte Esterase NEGATIVE (NEGATIVE) 08/09/22 20:27 Ur Microscopic Review NOT INDICATED 08/09/22 20:27 Urine Culture Comments NOT INDICATED 08/09/22 20:27 Nasal Adenovirus (PCR) NOT DETECTED 08/17/22 16:30 Nasal B. parapertussis DNA (PCR) NOT DETECTED 08/17/22 16:30 Nasal Coronavir 229E PCR NOT DETECTED 08/17/22 16:30 Nasal Coronavir HKU1 PCR NOT DETECTED 08/17/22 16:30 Nasal Coronavir NL63 PCR NOT DETECTED 08/17/22 16:30 Nasal Coronavir OC43 PCR NOT DETECTED 08/17/22 16:30 Nasal Enterovir/Rhinovir PCR NOT DETECTED 08/17/22 16:30 Nasal Influenza B PCR NOT DETECTED 08/17/22 16:30 Nasal Influenza A PCR NOT DETECTED 08/17/22 16:30 Nasal Parainfluen 1 PCR NOT DETECTED 08/17/22 16:30 Nasal Parainfluen 2 PCR NOT DETECTED 08/17/22 16:30 Nasal Parainfluen 3 PCR NOT DETECTED 08/17/22 16:30 Nasal Parainfluen 4 PCR NOT DETECTED 08/17/22 16:30 Nasal RSV (PCR) NOT DETECTED 08/17/22 16:30 Nasal B.pertussis DNA PCR NOT DETECTED 08/17/22 16:30 Nasal C.pneumoniae (PCR) NOT DETECTED 08/17/22 16:30 Yannick Human Metapneumo PCR NOT DETECTED 08/17/22 16:30 Nasal M.pneumoniae (PCR) NOT DETECTED 08/17/22 16:30 Nasal SARS-CoV-2 (PCR) NOT DETECTED 08/17/22 16:30 Last Dose Date 08/14/2022 08/14/22 13:55 Last Dose Time 03308/14/22 13:55 Vancomycin Trough 16.6 ug/mL (10.0-20.0) 08/14/22 13:55 Sepsis Event Note (H) - Evaluation Current Stage of Sepsis: Ruled out
[2022-09-15] MEDS: SYSTANE EYE DROPS EACHEYE PRN (21:28)
[2022-09-15] MEDS: ZOLPIDEM 5 MG TABLET PO PRN (21:37)
[2022-09-16] MEDS: PANTOPRAZOLE 40 MG TABLET PO SCH (06:22)
[2022-09-16] MEDS: SODIUM CHLORIDE FLUSH 0.9% 10 ML SYRINGE IVP SCH ×3 (06:22→17:14)
[2022-09-16] MEDS: SACCHAROMYCES BOULARDII 250 MG CAPSULE PO SCH ×2 (07:55→17:13)
[2022-09-16] MEDS: ASCORBIC ACID 500 MG TABLET PO SCH (07:55)
[2022-09-16] MEDS: MULTIVITAMIN W/MINERALS TABLET PO SCH (07:55)
[2022-09-16] MEDS: INSULIN LISPRO 300 UNIT/3 ML PEN SUBQ SCH ×7 (07:58→21:18)
[2022-09-16] MEDS: INSULIN GLARGINE-YFGN 300 UNIT/3 ML PEN SUBQ SCH ×2 (08:00→21:17)
[2022-09-16] MEDS: LOSARTAN 50 MG TABLET PO SCH ×2 (08:05→21:22)
[2022-09-16] MEDS: hydroCHLOROthiazide 25 MG TABLET PO SCH (08:05)
[2022-09-16] MEDS: ENOXAPARIN 40 MG/0.4 ML SYRINGE SUBQ SCH ×2 (08:05→21:17)
[2022-09-16] MEDS: metFORMIN 850 MG TABLET PO SCH ×3 (09:18→17:13)
[2022-09-16] MEDS: DOCUSATE SODIUM 250 MG CAPSULE PO SCH (09:18)
[2022-09-16] MEDS: NYSTATIN CREAM 15 GM TUBE TOP SCH ×2 (09:22→21:19)
[2022-09-16] MEDS: ERTAPENEM 1 GM in SODIUM CHLORIDE 0.9% MINIBAG 100 ML IV SCH (10:44)
[2022-09-16] MEDS: SYSTANE EYE DROPS EACHEYE PRN (11:59)
--- NOTE | 2022-09-16 16:45 | PROVIDER PROGRESS NOTE ---
Progress Note September 16 4:45 PM He is delighted with his scooter. Writing all over the place with it. But now his right knee hurts from the pressure of his knee on the scooter. He says that he used to get injections in [place] about once a year for right knee arthritis for "[id number]". He is asking if we can give that injection. Of the insulin to go home when he is decided that he would like to stay on Lantus. He knows that his brother says that he has a 6-month supply of 70/30 but he does not want to change back to that. He says that his control has been so much better with the Lantus. Active Medications Acetaminophen (Acetaminophen 325 Mg Tablet) 650 mg PO Q4HR PRN PRN Reason: Pain 1 to 4, or Fever Last Admin: 08/23/22 05:15 Dose: 650 mg Ascorbic Acid (Ascorbic Acid 500 Mg Tablet) 500 mg PO DAILYWM [facility] Last Admin: 09/16/22 07:55 Dose: 500 mg Carboxymethylcellulose (Carboxymethylcellulose Ophth Drops) 1 drops EACHEYE PRN PRN PRN Reason: Dry Eye Last Admin: 08/22/22 17:05 Dose: 1 drops Docusate Sodium (Docusate Sodium 250 Mg Capsule) 250 - 500 mg PO DAILY [facility] Last Admin: 09/16/22 09:18 Dose: 250 mg Enoxaparin Sodium (Enoxaparin 40 Mg/0.4 Ml Syringe) 40 mg SUBQ BID [facility] Last Admin: 09/16/22 08:05 Dose: 40 mg Hydrochlorothiazide (Hydrochlorothiazide 25 Mg Tablet) 25 mg PO DAILY [facility] Last Admin: 09/16/22 08:05 Dose: 25 mg Ertapenem 1 gm/ Sodium (Chloride) 100 mls @ 200 mls/hr IV DAILY [facility] Last Infusion: 09/16/22 11:15 Dose: Infused Ibuprofen (Ibuprofen 400 Mg Tablet) 400 mg PO Q6HR PRN PRN Reason: PAIN Last Admin: 09/15/22 21:36 Dose: 400 mg Insulin Glargine-yfgn (Insulin Glargine-Yfgn 300 Unit/3 Ml Pen) 30 unit SUBQ DAILY [facility] Last Admin: 09/16/22 08:00 Dose: 30 unit Insulin Glargine-yfgn (Insulin Glargine-Yfgn 300 Unit/3 Ml Pen) 5 unit SUBQ QPM [facility] Last Admin: 09/15/22 21:29 Dose: 5 unit Insulin Human Lispro (Insulin Lispro 300 Unit/3 Ml Pen) 1 - 9 unit SUBQ 0800,1200,1700,2100 [facility]; Protocol Last Admin: 09/16/22 11:57 Dose: Not Given Insulin Human Lispro (Insulin Lispro 300 Unit/3 Ml Pen) 4 unit SUBQ 1200 [facility] Last Admin: 09/16/22 11:53 Dose: 4 unit Insulin Human Lispro (Insulin Lispro 300 Unit/3 Ml Pen) 4 unit SUBQ 1700 [facility] Last Admin: 09/15/22 17:15 Dose: 4 unit Insulin Human Lispro (Insulin Lispro 300 Unit/3 Ml Pen) 8 unit SUBQ 0800 [facility] Last Admin: 09/16/22 08:04 Dose: 8 unit Loratadine (Loratadine 10 Mg Tablet) 10 mg PO DAILY PRN PRN Reason: ITCHING Last Admin: 09/01/22 05:56 Dose: 10 mg Losartan Potassium (Losartan 50 Mg Tablet) 50 mg PO BID [facility] Last Admin: 09/16/22 08:05 Dose: 50 mg Metformin HCl (Metformin 850 Mg Tablet) 850 mg PO TIDWM [facility] Last Admin: 09/16/22 13:25 Dose: 850 mg Metoclopramide HCl (Metoclopramide 10 Mg/2 Ml Vial) 5 mg IVP Q6HR PRN PRN Reason: NEEDED PER PROVIDER ORDERS Last Admin: 08/11/22 23:00 Dose: 5 mg Multi-Ingred Cream/Lotion/Oil/Oint (Mineral Oil/Petrolat Ophth Oint) 1 applic EACHEYE QPM PRN PRN Reason: Dry Eye Last Admin: 08/23/22 20:49 Dose: 1 applic Multi-Ingredient Ointment (Zinc Oxide 20% Oint 30 Gm Tube) 1 applic TOP PRN PRN PRN Reason: Skin Care Last Admin: 08/13/22 18:46 Dose: 1 applic Multivitamins/Minerals (Multivitamin W/Minerals Tablet) 1 tab PO DAILYWM [facility] Last Admin: 09/16/22 07:55 Dose: 1 tab Nystatin (Nystatin Cream 15 Gm Tube) 1 applic TOP BID [facility] Last Admin: 09/16/22 09:22 Dose: 1 applic Ondansetron HCl (Ondansetron 4 Mg/2 Ml Vial) 4 mg IVP Q6HR PRN PRN Reason: Nausea / Vomiting Last Admin: 08/16/22 08:38 Dose: 4 mg Pantoprazole Sodium (Pantoprazole 40 Mg Tablet) 40 mg PO QDAC [facility] Last Admin: 09/16/22 06:22 Dose: 40 mg Systane Eye Drops 1 each EACHEYE PRN PRN PRN Reason: DRY EYE Last Admin: 09/16/22 11:59 Dose: 1 each Saccharomyces Boulardii (Saccharomyces Boulardii 250 Mg Capsule) 250 mg PO BIDWM [facility] Last Admin: 09/16/22 07:55 Dose: 250 mg Sodium Chloride (Sodium Chloride Flush 0.9% 10 Ml Syringe) 10 ml IVP PRN PRN PRN Reason: NEEDED PER PROVIDER ORDERS Last Admin: 09/15/22 16:17 Dose: 10 ml Sodium Chloride (Sodium Chloride Flush 0.9% 10 Ml Syringe) 10 ml IVP 0100,0900,1700 [facility] Last Admin: 09/16/22 09:19 Dose: 10 ml Sodium Chloride (Sodium Chloride Flush 0.9% 10 Ml Syringe) 20 ml IVP PRN PRN PRN Reason: After Blood Draw Last Admin: 08/30/22 05:40 Dose: 20 ml Throat Lozenges (Benzocaine/Menthol Lozenge) 1 lozenge MM Q2HR PRN PRN Reason: Throat pain Last Admin: 08/17/22 16:28 Dose: 1 lozenge Zolpidem Tartrate (Zolpidem 5 Mg Tablet) 2.5 mg PO QPM PRN PRN Reason: Insomnia Last Admin: 09/15/22 21:37 Dose: 2.5 mg Home Meds: Losartan [Cozaar] 50 mg PO BID 08/09/22 Omeprazole 40 mg PO DAILY 08/09/22 hydroCHLOROthiazide [Hydrodiuril] 25 mg PO DAILY 08/10/22 metFORMIN [Glucophage] 850 mg PO TIDWM 08/10/22 Exam: Temperature is 36.4 Heart rate is 60 Blood pressure 105/67, respirations 18, 98% on room air Weight on admission was 154 kg but 7 hours later was reported at 146 kg. Today he is 143.5. Morbidly obese pleasant male in no acute distress other than co mplaining of knee pain that is a 5 out of 10. Neck is supple Lungs have diminished breath sounds at the bases but otherwise clear without any increased respiratory effort Regular rate and rhythm Abdomen is obese, soft, nontender with normal bowel sounds Right leg has hemosiderin deposits over the skin of his calves and wyatt but no edema. Left leg still has 1+ edema over the calf, wyatt, and the left foot is covered in a bandage with a wound VAC in place.The left knee has full range of motion with crepitance palpable and audible when I flex and extend. But there is no bogginess, no effusion felt. There is no heat. No redness. Assessment/Plan - Problem List (1) Chronic diabetic ulcer of left foot determined by examination When he was admitted 39 days ago he had 3 foot ulcers. 2 are on the lateral aspect of the left foot, and one was on the plantar surface at the base of his fifth toe. His foot and leg had cellulitis. He has been followed by the wound clinic as well as orthopedic surgery. He has had excellent healing as his glucose was controlled and he was placed on antibiotics by using a PICC line. C-reactive protein has decreased to 2.3. He has been nonweightbearing on the left foot. It has been hopping around, and inadvertently putting his weight on his left foot when he lost his balance also right foot. He then switched to a wheelchair and was taking himself from the facility. He is now has a scooter and he is delighted with it. Wound VAC was placed September 11. It is to come off on the day of discharge September 20. He is now down to only 1 ulcer. 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 On 09/09 he requested to restart Metformin. Med list was reviewed and he took 850 BID and it was restarted. During the stay he has lost about 4 kg of weight. He is in a carb controlled diet. Wound healing has occurred very nicely. We cut back the dinner lispro dose from 8->5 units and lunch lispro dose from 8->5. Continued the 10 units with breakfast. On 09/09, as we restarted Metformin, I decreased his am Lantus from 40 to 30 and decreased his meal doses down to 4, 2, 2, but glucose thalia to the high 200s. On 09/10, I continued the am Lantus dose of 30, but increased the mealtime doses from 4, 2, 2>> 6, 4, 4. All labs were reviewed. With that schedule, his glu are now 140-209, higher in the afternoon. On 09/12, I changed mealtime doses to 8, 4, 4. Glu were 104-180. On I spoke to the brother Wai in the room who mentioned that there is a 6-month supply of insulin 70/30 at home and he wonders if the patient will use that. Plan: Cont Metformin BID Continue Lantus 30 in am and mealtime Lispro 8, 4, 4. The patient does not want to go back to 70/30 and wants to continue Lantus. He would like called into [facility]. He says that after he gets a month here, he will most likely get the rest of his Lantus in [place]. It is about $50 a month there is supposed to the $200 a month that is here at [facility] (3) History of osteoarthritis left knee Plan: He is asking for an injection. I will speak to orthopedic surgery. If orthopedic surgery cannot do it I can I will order a L knee film
--- NOTE | 2022-09-16 18:13 | XRAY Report ---
PROCEDURE: Knee 3 View LT INDICATIONS: knee pain w hx of osteoarthritis TECHNIQUE: 3 views of the left knee(s) were acquired. COMPARISON: None. FINDINGS: Mild tricompartmental joint space narrowing with marginal osteophytosis. No subchondral sclerosis, marrero bchondral cystic change, or erosive/inflammatory bone lesion. Enchondroma in the distal femoral metap hysis. Mild lateral patellar subluxation and tilt. No knee joint effusion. Edematous soft tissues wit hout acute soft tissue abnormality. IMPRESSION: Mild tricompartmental osteoarthritis. Mild lateral patellar subluxation and tilt is pres umably related to asymmetric chondromalacia. Correlate for patellar dislocation. No acute finding oth marvin. Reviewed by: Migel Rodney MD on 09/16/2022 6:12 PM PDT Approved by: Migel Rodney MD on 09/16/2022 6:12 PM PDT Station ID: [id number]
[2022-09-17] MEDS: PANTOPRAZOLE 40 MG TABLET PO SCH (06:23)
[2022-09-17] MEDS: SACCHAROMYCES BOULARDII 250 MG CAPSULE PO SCH ×2 (08:05→17:05)
[2022-09-17] MEDS: ASCORBIC ACID 500 MG TABLET PO SCH (08:05)
[2022-09-17] MEDS: DOCUSATE SODIUM 250 MG CAPSULE PO SCH ×2 (08:05→08:10)
[2022-09-17] MEDS: LOSARTAN 50 MG TABLET PO SCH ×2 (08:05→22:02)
[2022-09-17] MEDS: hydroCHLOROthiazide 25 MG TABLET PO SCH (08:06)
[2022-09-17] MEDS: MULTIVITAMIN W/MINERALS TABLET PO SCH (08:06)
[2022-09-17] MEDS: ERTAPENEM 1 GM in SODIUM CHLORIDE 0.9% MINIBAG 100 ML IV SCH (08:06)
[2022-09-17] MEDS: SODIUM CHLORIDE FLUSH 0.9% 10 ML SYRINGE IVP SCH ×3 (08:07→17:06)
[2022-09-17] MEDS: NYSTATIN CREAM 15 GM TUBE TOP SCH ×2 (08:07→22:03)
[2022-09-17] MEDS: INSULIN LISPRO 300 UNIT/3 ML PEN SUBQ SCH ×7 (08:17→22:02)
[2022-09-17] MEDS: INSULIN GLARGINE-YFGN 300 UNIT/3 ML PEN SUBQ SCH ×2 (08:17→22:02)
[2022-09-17] MEDS: metFORMIN 850 MG TABLET PO SCH ×3 (08:29→17:05)
[2022-09-17] MEDS: ENOXAPARIN 40 MG/0.4 ML SYRINGE SUBQ SCH ×2 (11:13→22:01)
[2022-09-17] MEDS: SYSTANE EYE DROPS EACHEYE PRN (17:07)
--- NOTE | 2022-09-17 19:25 | PROVIDER PROGRESS NOTE ---
Progress Note September 17, 2022 7:21 PM Patient has no new complaints. We are continuing on course for his discharge later this week. Prescriptions have been called into [facility] today. Continues to have knee pain. I did speak to orthopedic surgery who said that they would probably see the patient in the outpatient setting. Exam: Temperature is 36.5, heart rate 96, blood pressure 148/74, respirations 20, 100% on room air Pleasant morbidly obese male Clear lungs Regular rate and rhythm Abdomen is obese, soft, nontender and all of his Roxana intertrigo has improved since admission The left foot is wrapped in a bandage with the wound VAC in place Glucose yesterday was 115, 140, 112, 157. Today glucose is 170, 209, 146 Assessment/plan 1. Diabetic foot infection that included soft tissue, 3 ulcers, probable osteomyelitis. He has done really well with good nutritional support, control of his sugars, antibiotics, and wound care. He is now down to 1 open ulcer and wound VAC was placed last week. Wound VAC will be discontinued at on the day of discharge. Antibiotics. On September 18. We will wait 24 to 48 hours on oral antibiotics to see how he does. Then discharged on the . 2. Type 2 diabetes mellitus. Controlled, with long-term use of insulin, with complications of peripheral neuropathy. When he was admitted his glucose was very uncontrolled. Since he has been on a low-carb diet, and monitor frequently, his glucose has been controlled for several weeks now. He will be discharged on Lantus twice daily, lispro before meals. 3. Knee pain. Knee x-ray shows mild tricompartmental osteoarthritis with mild lateral patellar subluxation and tilt presumably related to asymmetric chondromalacia. No acute findings otherwise. I explained to the patient what this means. Down the road he may need patellar surgery. I plan on doing injections tomorrow and have discussed the case with pharmacy to get Depo-Medrol and lidocaine ready for me.
[2022-09-18] MEDS: PANTOPRAZOLE 40 MG TABLET PO SCH (06:04)
[2022-09-18] MEDS: SODIUM CHLORIDE FLUSH 0.9% 10 ML SYRINGE IVP SCH ×3 (06:04→16:45)
[2022-09-18] MEDS: SYSTANE EYE DROPS EACHEYE PRN (06:05)
[2022-09-18] MEDS ORDERED: BUFFERED LIDOCAINE 10 ML SYRINGE IU SCH (08:00)
[2022-09-18] MEDS ORDERED: methylPREDNISolone ACETATE 40 MG/ML VIAL IU SCH (08:00)
[2022-09-18] MEDS: ERTAPENEM 1 GM in SODIUM CHLORIDE 0.9% MINIBAG 100 ML IV SCH (08:08)
[2022-09-18] MEDS: hydroCHLOROthiazide 25 MG TABLET PO SCH (08:11)
[2022-09-18] MEDS: LOSARTAN 50 MG TABLET PO SCH ×2 (08:11→21:24)
[2022-09-18] MEDS: metFORMIN 850 MG TABLET PO SCH ×3 (08:12→16:44)
[2022-09-18] MEDS: MULTIVITAMIN W/MINERALS TABLET PO SCH (08:12)
[2022-09-18] MEDS: ASCORBIC ACID 500 MG TABLET PO SCH (08:12)
[2022-09-18] MEDS: INSULIN LISPRO 300 UNIT/3 ML PEN SUBQ SCH ×7 (08:12→21:24)
[2022-09-18] MEDS: SACCHAROMYCES BOULARDII 250 MG CAPSULE PO SCH ×2 (08:12→16:44)
[2022-09-18] MEDS: INSULIN GLARGINE-YFGN 300 UNIT/3 ML PEN SUBQ SCH ×2 (08:14→21:23)
[2022-09-18] MEDS: ENOXAPARIN 40 MG/0.4 ML SYRINGE SUBQ SCH ×2 (08:14→21:23)
[2022-09-18] MEDS: NYSTATIN CREAM 15 GM TUBE TOP SCH ×2 (08:15→21:24)
[2022-09-18] MEDS: DOCUSATE SODIUM 250 MG CAPSULE PO SCH (08:15)
--- NOTE | 2022-09-18 11:36 | WOUND CARE PROGRESS NOTE ---
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 Management as per hospital team. He will be discharged with prescriptions for Lantus and lispro. (2) Non-pressure chronic ulcer of other part of left foot with fat layer exposed Assessment/Plan: 42-year-old male hospitalized for diabetic foot ulcerations complicated by osteomyelitis, abscess/phlegmon, cellulitis, and possible septic joint. He has done well with IV Ertapenem. Hospital team plans to transition him to oral levofloxacin today and monitor. If he does well, anticipate d/c on 09/20. His WBC count remains normal. His CRP is improved, but still mildly elevated at 2.3. His left foot is a bit warmer to the touch compared to the right. Will continue to monitor closely. He has complex wounds and remains at high risk for amputation. His distal lateral left foot ulcer tunnels extensively, but 3 tunnels are now down to one. Granulation tissue has improved nicely with NPWT. He has a protracted course of wound healing in front of him. Status: Improved, as evidenced by decreasing measurements. Wounds cleansed with normal saline and Anasept. Wound VAC holiday due to maceration. It is unknown if he will be able to obtain coverage for, or pay [id number] for, a Wound VAC on an outpatient basis. This would be strongly recommended, if possible. Wounds dressed with silver hydrofiber, rolled gauze, and Optilock superabsorbent. Next dressing change will be scheduled for the [facility] in 5 days. Offloading: Total NWB L foot. Continue knee scooter. Goals: Resolve osteomyelitis. Remove necrotic/devitalized tissue Restore viable wound edge. Restore moisture balance. Redistribute pressure Manage co-morbidities Limb salvage Appropriate follow up instructions were given. He was given a follow-up appointment in the outpatient [facility] on 09/23 for dressing change. Sooner, PRN. - Home Meds/Allergies Allergies No Known Drug Allergies Allergy (Verified 08/12/22 08:50) Home Medications Losartan [Cozaar] 50 mg PO BID 08/09/22 [History Confirmed 08/09/22] Omeprazole 40 mg PO DAILY 08/09/22 [History Confirmed 08/09/22] hydroCHLOROthiazide [Hydrodiuril] 25 mg PO DAILY 08/10/22 [History Confirmed ] metFORMIN [Glucophage] 850 mg PO TIDWM 08/10/22 [History Confirmed 08/10/22] - Additional Planning Condition/Complexity: Improved Plan Discussed with:: Patient Objective Comments/Notes: Vitals: T 36.4 C, HR 70, RR 16, BP 112/59. O2 Sat 98% (room air). Constitutional: NAD. Alert and conversant. Respiratory: Normal respiratory effort. Cardiovascular: Regular rate. The left foot edema is now minimal. Musculoskeletal: No prior amputations. No foot/toe deformities. Neurological: L foot drop. Loss of protective sensation noted bilateral feet. New: Labs: 09/12/22: WBC remains normalized. H&H show stable mild anemia. Platelet count remains normalized. GFR normal. CRP 2.3. Previously reviewed: Micro: 08/12/22: Wound culture grew klebsiella oxytoca, GBS, and E. faecalis. Anaerobic cultures NG. Anaerobic gram stain did show some GPC and WBCs. 08/09/22: Blood culture no growth x 2. Imagin08/20/22: L foot MRI WO/W contrast demonstrated increased nonenhancement of the intrinsic foot musculature surrounding the fifth metatarsal suspicious for worsening infectious involvement with possible evolving necrosis vs ischemia. Otherwise, there were no significant changes compared to 08/13/22. 08/13/22: L foot MRI WO/W contrast demonstrated findings compatible with osteomyelitis of the 5th metatarsal head and shaft and 5th proximal phalanx, possible septic arthritis in the 5th MTPJ, findings compatible with a 7.8 x 2.1 x 6.2 cm abscess/phlegmon in the dorsal aspect of the forefoot tracking lateral and plantar to the 5th metatarsal, and findings consistent with cellulitis. - Wound Assessment Wound #1 is a full-thickness diabetic foot ulcer of the left lateral foot at the level of the fifth metatarsal head. It measures 1.6 x 2.0 x 0.3 cm (L x W x D). There is extensive tunneling at 10:00 with distance 4.7 cm. The tunnels previously seen at 7:00 and 11:00 appear to be resolved. There is minimal serous drainage collected in the VAC canister noted which has no odor. The patient reports a wound pain level 0/10. The wound margin is unattached. The wound bed has no epithelialization, no eschar, yes slough, yes firm red granulation. The periwound exhibits increased warmth to palpation. The periwound skin texture, moisture, and color are normal. Exposed structures: Adipose. Wound #2 is a full-thickness diabetic foot ulcer of the left plantar foot at the level of the fifth metatarsal head. It measures 2.0 x 1.0 x 0.1 (L x W x D). There is no undermining, tunneling, or sinus tracking. There is minimal serous drainage collected in the VAC canister noted which has no odor. The patient reports a wound pain level 0/10. The wound margin is attached. The wound bed has no epithelialization, no eschar, yes slough, and yes firm red granulation. The periwound is macerated. The periwound skin texture, temperature, and color are normal. Exposed structures: Adipose. Wound #3 is a full-thickness diabetic foot ulcer of the left lateral foot, proximal. It measures 0.6 x 1.0 x 0.5 cm (L x W x D). There is 0.6 cm undermining from 4:00 to 5:00. There is no tunneling or sinus tracking. There is minimal serous drainage collected in the VAC canister noted which has no odor. The patient reports a wound pain level 0/10. The wound margin is unattached. The wound bed has no epithelialization, no eschar, yes slough, and yes firm red granulation. The periwound skin texture, moisture, temperature, and color are normal. Exposed structures: Adipose. I am unable to demonstrate a communication between the wounds. Subjective - Subjective Patient Reports: Other (Patient tells me discharge from the hospital anticipated on 09/20. Wound VAC intact and tolerated well. Attentive to offloading with his new knee scooter. Denies wound pain. Denies FCS.) Procedure - Procedure Note Wound #1: After informed consent was obtained, a skin/subcutaneous tissue level surgical debridement with a total area of 5.0 square centimeters was performed by Juan Wren MD. Using a curette, dermis, epidermis, and subcutaneous tissues were removed along with devitalized tissue: Exudate and slough. Pain control was achieved using 5% topical lidocaine. A timeout was conducted prior to the start of the procedure. A minimal amount of bleeding was controlled with pressure. The procedure was tolerated well. Postdebridement measurements: 2.0 x 2.5 x 0.5 cm (L x W x D). Wound #2: After informed consent was obtained, a skin/subcutaneous tissue level surgical debridement with a total area of 2.6 square centimeters was performed by Juan Wren MD. Using a curette, dermis, epidermis, and subcutaneous tissues were removed along with devitalized tissue: exudate and slough. Pain control was achieved using 5% topical lidocaine. A timeout was conducted prior to the start of the procedure. A minimal amount of bleeding was controlled with pressure. The procedure was tolerated well. Postdebridement measurements: 2.0 x 1.3 x 0.2 cm (L x W x D). Wound #3: After informed consent was obtained, a skin/subcutaneous tissue level surgical debridement with a total area of 1.92 square centimeters was performed by Juan Wren MD. Using a curette, forceps, and scissors, dermis, epidermis, and subcutaneous tissues were removed along with devitalized tissue: Exudate and slough. Pain control was achieved using 1% injectable lidocaine with epinephrine. A timeout was conducted prior to the start of the procedure. A moderate amount of bleeding was controlled with pressure and silver nitrate. The procedure was tolerated well. Postdebridement measurements: 1.2 x 1.6 x 0.7 cm (L x W x D).
[2022-09-18] MEDS: SODIUM CHLORIDE FLUSH 0.9% 10 ML SYRINGE IVP PRN (16:45)
--- NOTE | 2022-09-18 18:27 | PROVIDER PROGRESS NOTE ---
Progress Note September 18, 2022 6:22 PM Financial is doing great. He is getting excited about leaving. I did stop antibiotics today and have switched him over to oral quinolones in anticipation of discharge tomorrow. Wound clinic notes reviewed. I will take there instructions and repeat them for the discharge plan tomorrow. He has an appointment with them on September 23 for dressing change. He still complains of knee pain from where he has been putting his knee on the scooter. He has a long history of knee pain in the past. Plain film shows chondromalacia. He would like a steroid injection. He denies chest pain, palpitations, shortness of breath. Exam: Temperature is 37, heart rate 75, blood pressure 144/79, respirations 20, 99% on room air Morbidly obese, pleasant male, alert, oriented, normal speech patterns Lungs are clear with no increased respiratory effort.'s sounds are slightly diminished at the bases but he is very comfortable. Sitting upright in his reclining chair. Regular rate and rhythm Huge, obese, abdominal pannus with hypoactive bowel sounds, nontender Extremities have very large legs, and the right leg has no edema anymore. Just evidence of hemosiderin deposits from previous venous stasis. The left foot is the one that still with 1-2+ edema, wrapped, and wound clinic description noted. There is no surrounding redness, heat. Labs are being done once a week and they will be done tomorrow Assessment/plan 1. Diabetic foot infection that included soft tissue, 3 ulcers, probable osteomyelitis. He has improved tremendously with good nutritional support, control of his glucose, wound care support provided by orthopedics and wound care clinic. He is now down to 2 ulcers. The tunneling has disappeared. Wound VAC was removed on the day of discharge. Today I have stopped his last dose of IV antibiotic, and him starting quinolones. If he does well today without any pain, fever, signs or symptoms of worsening infection, he will be discharged Thursday. Today is . 2. Type 2 diabetes mellitus, controlled, with long-term use of insulin, with complications of peripheral neuropathy and wound infection. Very well controlled with her low-carb diet. No change in medication at this time. 3. Osteoarthritis of knee, mild, with asymmetric chondromalacia. Under separate dictation procedure note for injection today.
--- NOTE | 2022-09-18 18:29 | PROCEDURE REPORT ---
Hospitalist Procedure Note - Procedure Note Procedure Note: September 18, 2022 6:27 PM The patient is interested in a steroid knee injection and requested 1 on the basis of his previous history of responding to injections. He says that sometimes a knee injection would last him a year and pain relief. He understands that my injection may not work. The risk of infection was discussed. He still would like it. Procedure: The knee In all quadrants was cleaned with povidone iodine swabs x3. I then wiped down with alcohol. I had identified the upper inner quadrant of the kneecap as the area would inject underneath the patella. Using 1 cc of 40 mg per mill Depo-Medrol mixed with 4 cc of buffered 1% lidocaine, I injected the knee using a 1-1/2 inch 22-gauge needle. He tolerated it without any discomfort or pain.
[2022-09-19] MEDS: SODIUM CHLORIDE FLUSH 0.9% 10 ML SYRINGE IVP SCH ×3 (06:56→17:42)
[2022-09-19] MEDS: PANTOPRAZOLE 40 MG TABLET PO SCH (06:56)
[2022-09-19] MEDS: IBUPROFEN 400 MG TABLET PO PRN ×3 (07:00→19:30)
[2022-09-19] MEDS: MULTIVITAMIN W/MINERALS TABLET PO SCH (07:54)
[2022-09-19] MEDS: ASCORBIC ACID 500 MG TABLET PO SCH (07:54)
[2022-09-19] MEDS: SACCHAROMYCES BOULARDII 250 MG CAPSULE PO SCH ×2 (07:54→17:42)
[2022-09-19] MEDS: INSULIN LISPRO 300 UNIT/3 ML PEN SUBQ SCH ×7 (07:55→20:50)
[2022-09-19] MEDS: metFORMIN 850 MG TABLET PO SCH ×3 (08:42→17:41)
[2022-09-19] MEDS: CIPROFLOXACIN 250 MG TABLET PO SCH ×2 (08:43→20:48)
[2022-09-19] MEDS: ENOXAPARIN 40 MG/0.4 ML SYRINGE SUBQ SCH ×2 (08:43→20:47)
[2022-09-19] MEDS: DOCUSATE SODIUM 250 MG CAPSULE PO SCH (08:43)
[2022-09-19] MEDS: hydroCHLOROthiazide 25 MG TABLET PO SCH (08:43)
[2022-09-19] MEDS: LOSARTAN 50 MG TABLET PO SCH ×2 (08:43→20:48)
[2022-09-19] MEDS: INSULIN GLARGINE-YFGN 300 UNIT/3 ML PEN SUBQ SCH ×2 (08:46→20:47)
[2022-09-19] MEDS: SODIUM CHLORIDE FLUSH 0.9% 10 ML SYRINGE IVP PRN ×2 (08:51→17:42)
[2022-09-19] MEDS: NYSTATIN CREAM 15 GM TUBE TOP SCH ×2 (10:33→20:48)
--- NOTE | 2022-09-19 12:54 | Discharge Plan ---
Discharge Plan Problem Reviewed?: Yes Disposition: Home, Self Care Condition: Fair Prescriptions: Ciprofloxacin [Cipro] 500 mg PO BID #44 tab Blood-Glucose Meter [Glucometer] 1 each QID #1 each Insulin Glargine,Hum.rec.anlog [Insulin Glargine] 35 unit SQ DAILY #4 ea Insulin Lispro 10 unit SUBQ TIDWM #4 ea Lancet/Gluc Test Strip/Gabriels [Tempo Refill Kit] 1 each QID 30 Days #120 packet Diet: Diabetic Activity Restrictions: Additional Comments (no weight bearing on L foot) Shower Restrictions: No Driving Restrictions: No Assistance Devices: Other (knee scooter) Weight Bearing: No Weight (L foot) Health Concerns: You presented to the hospital with a painful foot that was also draining. The foot was red, hot. You had 3 ulcers that were deep. You are a diabetic and have been uncontrolled for the 11 years you have been a diabetic. The goal of A1c control is less than 7%. You were 12%. You have been given antibiotics into your vein for 4 weeks now and you will now be on pills for 2 weeks. The pills are ciprofloxacin, you will take them twice a day until September 30. While you are on them please take a probiotic twice a day. You have been seen by a wound clinic and orthopedic surgery to drain the infection in your foot. Your diabetes is now well controlled and your foot is healing very well. . Plan of Treatment: Please follow-up with the wound clinic appointment on September 23. Please keep the dressing on your left foot clean, and the wound clinic will change your dressing on that clinic visit. Please stay off your left foot. Always use your knee scooter to get around. Keep the wound and foot clean and dry. Do not soak your foot in water. You can take a shower, but you cannot take a bath. You should not go swimming, or get into a pool. You have been very well controlled with your diabetes while here. You have decided to go ahead and use long-acting insulin and short acting insulin to control your glucose. You would prefer it to be in vials as opposed to pens. As such vials of the long-acting insulin were called into [facility] and vials of the short acting insulin were also called into [facility]. -Take 30 units of long-acting in the morning. And take 5 units in the evening before bedtime. -Take 10 units in the morning of short acting before breakfast. Take 5 units of short acting before lunch. And 5 units of short acting before dinner. Please follow-up with your primary care provider, Dr. Ceballos, to make sure your diabetes is staying under control. Care Goals: To lose 10% of your body weight in the next 6 months To have complete healing of the wounds of your left foot To have an A1c less than 7% Assessment: Patient is a male who prefers to speak American. Does understand some Italian. Follow-Up Care: [facility] [place] [facility] - Wound/Ostomy, [facility] [place] Clinic - Diabetes Ed No Smoking: If you smoke, Please STOP! Call for help. Follow-up with: Isai Ceballos MD [Primary Care Provider] -
--- NOTE | 2022-09-19 14:42 | PROVIDER PROGRESS NOTE ---
Progress Note September 19, 2022 2:21 PM Patient states he is doing well. He and social work therapist been discussing what exactly he is going to do when he gets home with his insulin. I had called in Lantus and lispro pens a couple of weeks back. He has decided that he does not want to do the pens and would rather do the vials. He says that he has enough needles and syringes at home because of his vials of 70/30. He also says that his skin to be easier to get the vials in [place] when he goes back home. He is interested in finding out how much she weighs. Over the course of his stay here he is lost quite a bit of weight. Temperature 36.7, heart rate 73, blood pressure 116/67 On admission 154 kg, and today he is 144.5 kg. Morbidly obese male who is alert, oriented, no acute distress, sitting comfortably in a chair with legs up. Speech is fluid, lucid. Diminished breath sounds at the bases but otherwise clear Regular rate and rhythm Abdomen obese, soft, nontender Extremities very large. He is a big man. Right leg has trace edema around the malleolar eye but is otherwise normal foot and normal skin. He has hemosiderin deposits from previous venous stasis. The left leg has 1+ edema around the wyatt and calf and down to the malleolar I. The foot itself is wrapped. I have not seen it since last week. Patient is ambulatory when he goes from supine to sitting to standing. Needs no assist. He then will use the knee scooter to put his left knee on the scooter and uses his right foot to propel himself. No ataxia. Lab: CBC, CMP, C-reactive protein ordered and pending Assessment/plan 1. Diabetic foot infection which includes soft tissue, 3 deep foot ulcers, probable osteomyelitis. He has now completed 4 weeks of antibiotic therapy and will be transition to oral antibiotic therapy today. Discharge is tomorrow. He will be followed by the wound clinic September 23. 2. Type 2 diabetes mellitus, now controlled, with complication of peripheral neuropathy, on long-term insulin. Lantus 30 units subcu every morning and 5 units subcu every afternoon have been sent to [facility] pharmacy. He is requesting vials and I have written for vials. Nutrition services and I have discussed his glucose and what we have been giving him before meals. I will give him 10 units before breakfast, 5 units before lunch, and 5 units before dinner. This insulin was also called into [facility]. The patient states he has plenty of syringes at home. I have called in a glucometer, lancets, test strips to [facility] as well. 3. Otitis media during this admission was treated with Zithromax 4. Left knee pain with mild osteoarthritis and chondromalacia was treated with a Depo-Medrol and lidocaine injection on September 18 5. Bilateral leg edema significant on admission has resolved with hydrochlorothiazide resumed August 2010. As well as Lasix for 2 days in a row. He will go home on his usual hydrochlorothiazide. 6. Dysphagia with solids. This was present in early admission. This is resolved with Reglan as needed. We suspect gap gastroparesis and poor GI motility. If he continues to have dysphagia, he will need outpatient work-up since we do not have fluoroscopy here. 7. Pseudohyponatremia has resolved. 8. Hypokalemia has resolved. #9. Morbid obesity. BMI started greater than 50. At discharge with caloric restriction, he is 48.4 BMI.
[2022-09-19 15:12] LABS: BASOPHILS % (AUTO) 0.2 %; EOSINOPHILS # (AUTO) 0.1 10^3/uL (0.0-0.7); EOSINOPHILS % (AUTO) 1.4 %; HCT - HEMATOCRIT 36.8 % (42.0-52.0); HGB - HEMOGLOBIN 11.6 g/dL (14.0-18.0); LYMPHOCYTES # (AUTO) 2.4 10^3/uL (1.5-3.5); LYMPHOCYTES % (AUTO) 25.8 %; MEAN CORPUSCULAR HEMOGLOBIN 25.3 pg (27.0-31.0); MEAN CORPUSCULAR HGB CONC 31.5 g/dL (32.0-36.0); MEAN CORPUSCULAR VOLUME 80.3 fL (80.0-94.0); MEAN PLATELET VOLUME 9.3 fL (7.4-11.4); MONOCYTES # (AUTO) 0.6 10^3/uL (0.0-1.0); NEUTROPHILS % (AUTO) 65.4 %; PLT - PLATELET COUNT 409 10^3/uL (130-450); RED BLOOD COUNT 4.58 10^6/uL (4.70-6.10); RED CELL DISTRIBUTION WIDTH 14.4 % (12.0-15.0); WHITE BLOOD COUNT 9.2 x10^3/uL (4.8-10.8)
[2022-09-19 15:29] LABS: ALBUMIN 3.6 g/dL (3.2-5.5); ALBUMIN/GLOBULIN RATIO 0.9 (1.0-2.2); BILIRUBIN,TOTAL 0.5 mg/dL (0.2-1.0); CREATININE 0.9 mg/dL (0.6-1.2); CRP - C-REACTIVE PROTEIN 1.9 mg/dL (0-1.0); POTASSIUM 3.8 mmol/L (3.5-5.0); TOTAL PROTEIN 7.7 g/dL (6.7-8.2)
[2022-09-19] MEDS: ACETAMINOPHEN 325 MG TABLET PO PRN (16:15)
[2022-09-19] MEDS: SYSTANE EYE DROPS EACHEYE PRN ×2 (16:17→20:48)
[2022-09-20] MEDS: PANTOPRAZOLE 40 MG TABLET PO SCH (06:33)
[2022-09-20] MEDS: SODIUM CHLORIDE FLUSH 0.9% 10 ML SYRINGE IVP SCH ×2 (06:33→08:34)
[2022-09-20] MEDS: MULTIVITAMIN W/MINERALS TABLET PO SCH (08:29)
[2022-09-20] MEDS: LOSARTAN 50 MG TABLET PO SCH (08:29)
[2022-09-20] MEDS: DOCUSATE SODIUM 250 MG CAPSULE PO SCH (08:30)
[2022-09-20] MEDS: CIPROFLOXACIN 250 MG TABLET PO SCH (08:30)
[2022-09-20] MEDS: hydroCHLOROthiazide 25 MG TABLET PO SCH (08:30)
[2022-09-20] MEDS: ENOXAPARIN 40 MG/0.4 ML SYRINGE SUBQ SCH (08:30)
[2022-09-20] MEDS: SACCHAROMYCES BOULARDII 250 MG CAPSULE PO SCH (08:30)
[2022-09-20] MEDS: INSULIN LISPRO 300 UNIT/3 ML PEN SUBQ SCH ×4 (08:32→12:47)
[2022-09-20] MEDS: INSULIN GLARGINE-YFGN 300 UNIT/3 ML PEN SUBQ SCH (08:34)
[2022-09-20] MEDS: metFORMIN 850 MG TABLET PO SCH ×2 (08:37→12:48)
[2022-09-20] MEDS: ASCORBIC ACID 500 MG TABLET PO SCH (08:37)
[2022-09-20] MEDS: NYSTATIN CREAM 15 GM TUBE TOP SCH (08:48)
--- NOTE | 2022-09-20 09:17 | DISCHARGE SUMMARY ---
"Discharge Summary Admit Date: 08/09/22 Discharge Date: 09/20/22 Discharging Provider: Zenaida Alvarado MD Primary Care Provider: Isai Ceballos MD Code Status: Attempt Resuscitation Condition at Discharge: Fair Discharge Disposition: 01 Home, Self Care - DIAGNOSES Discharge Diagnoses with Status of Each Condition: 1. Diabetic foot infection left foot 2. Abscess of left foot 3. Diabetic chronic ulcers of left foot associated with Type 2 DM, with bone involvement without evidence of necrosis 4. Osteomyelitis left foot 5. Type 2 diabetes mellitus, uncontrolled with hyperglycemia, with complication of peripheral neuropathy, with long-term insulin 6. Superobesity 7. Osteoarthritis left knee 8. Chondromalacia left knee 9. Difficulty swallowing solids 10. Hyponatremia - HPI History of Present Illness: 41-year-old obese diabetic male presents to the emergency department for evaluation of left foot ulceration and left leg swelling and redness. History is obtained with use of the appeals nurse. History is also obtained and ancillary history by his friend at the bedside who is also a nurse and speaks [place]ic. Reportedly the patient developed an ulcer on lateral sole of his left foot more than 4 months ago. He had briefly been followed by a provider Dr. Brand [place] and had been referred to a ships or barges loader. However the patient subsequently Traveled to [place] and has remained there for the last 4 months. He returned From [place] 2 days ago. The patient reports that since returning from [place] he has had swelling and increased redness of the left lower And calf. He is also had subjective fevers. He denies chest pain or shortness of air. He typically takes a combination of both Humalog and regular insulin for the control of his diabetes as well as metformin 3 times a day. He does have a ulceration measuring about 2 cm in circumference on the lateral side of his left sole with exposed subcutaneous tissue but no obvious bony tissue is felt. Wound does not appear to tunnel, patient was discussed in detail with ER MD and felt patient wound was all cellulits with no other concerns. 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 August 09 plain film of the foot showed deep soft tissue ulceration without osteomyelitis or foreign body. 2. Venous duplex August 09 had no DVT T in the left lower extremity. Limited by body habitus. 3. Chest x-ray August 09 with no pneumonia, visualization significantly limited by large body habitus and reduced inspiratory effort. Chest x-ray August 12 done for cough showed minimal interstitial prominence that was either pulmonary edema versus atypical infiltrate versus artifact from low lung volumes. No focal consolidative infiltrate seen. Chest x-ray August 20 had no such interstitial changes. And there was a satisfactory placement of the right arm PICC line. 4. August 11 duplex scan lower extremity artery without evidence of stenosis. Although there is no hemodynamically significant stenosis identified on the left, from the common femoral through popliteal, the presence of monophasic waveforms from the proximal SFA distally suggest possible significant disease. 5. PICC line placement 6. Foot MRI done August 13 and August 21 has the same osseous edema and mildly decreased intrinsic T1 weighted signal throughout the fifth metatarsal shaft. Edema of the fifth proximal phalanx. Osseous edema within the mi dportion of the cuboid unchanged. Consistent with osteomyelitis. No significant change between the 2 MRIs. Orthopedics feels that this is over read and that the patient does not have osteomyelitis. Nonenhancement of the intrinsic foot musculature surrounding the fifth metatarsal on the second MRI has increased when compared to the first MRI. Suspicious for worsening infectious involvement. Possibly evolving necrosis versus ischemia. (However on physical exam, there was significant clinical improvement not deterioration) 7. Blood cultures August 09 without growth. 8. Wound culture August 13 with beta-hemolytic group B strep, Klebsiella oxytocin, Enterococcus faecalis. - HOSPITAL COURSE Hospital Course: The patient was placed on MedSurg and started on empiric antibiotic therapy for a complex wound infection and the patient had uncontrolled diabetes for many years. Blood cultures were negative. And even though a superficial wound cu lture was not can to be helpful it was done. He then had some debridement with culture of the debridement and that showed beta-hemolytic strep group B, Klebsiella oxytocin, and Enterococcus faecalis. Antibiotics were de-escalated to ertapenem. We were trying to plan for the future where he would be on outpatient antibiotics. If we chose an antibiotic that was more than once a day it would be very difficult to get the treatment for him in the outpatient setting. In the end, because he is uninsured, we had to keep the patient in the hospital for his entire 4 weeks of antibiotic care. He was seen by both orthopedic surgery for wound care as well as wound clinic. Debridement and dressings were done by those services. He started out with a massively swollen foot, drainage from 3 ulcers. To the ulcers on the lateral aspect of the foot dove deep into the foot and met inside soft tissue to tunnel in a U-shaped tunnel. By the end of his stay the tunnel closed up and he was left with an ulcer near his fifth toe on the lateral aspect of his foot. An ulcer further back toward his heel. And then an ulcer on the bottom of the plantar surface of his fifth toe. It would be helpful if he could stand a wound VAC but wound VAC is about $300 a day and the patient does not have that money. We addressed his diabetes which was very uncontrolled. Patient was really not taking care of himself ever since he has been diagnosed. He was taking 70/30. No short acting insulin. Here, he lost weight, was on a carb controlled diet, and glucose was very well controlled for at least 3 to 4 weeks before discharge. He opted to go ahead and change consultant to Lantus and short acting lispro when he returned to home. He did not want the pens because they were too expensive. He preferred the vials. He also stated the vials were easier to get in [place] when he returns back to [place]. Patient Because he is nonweightbearing on that foot because it he obtained a scooter. His brother was able to find him 1. It was very difficult to find him the right size 1 because he is super obese. There is suspicion that he may have osteomyelitis of the foot but we are hoping that he is able to salvage bones and soft tissue. He is changed over to a quinolone for 2 more weeks of oral antibiotic. This will give him a total of 6 weeks of antibiotic therapy. He is to wear return to the wound clinic September 23. He is living with his brother's house. All of his home medications were renewed except for the 7030. He is resumed on his Cozaar, metformin, hydrochlorothiazide, omeprazole, and the new medications will be Cipro, Florastor. He is also been given a new prescription for glucose meter The day before discharge, I injected the patient's left knee. He says that he has a history of arthritis in that left knee and he gets an injection in his knee about once a year. Since he has been using the scooter, that knee really hurts underneath the kneecap. Plain film showed chondromalacia, and mild medial joint arthritis. This is the knee that will be on a scooter for the next few weeks and I can understand how his knee will be hurting him more. So I agreed to do an injection. 40 mg of Depo-Medrol were injected. At the beginning of his admission he was complaining of difficulty swallowing solids. We do not have fluoroscope here. As such are not able to do barium evaluations. I told him that if he continues to have swallowing problems to be seen in the outpatient setting. His primary care provider can refer him to the appropriate facility that would be able to evaluate him. On examination he was reportedly 154 kg on admission. He is 145 kg at discharge. Temperature is 36.3. Heart rate 80. Blood pressure 120/68. O2 sat 99% on room air. Morbidly superobese male who is alert, oriented, in no acute distress, and is completely ambulatory without assistance. He is nonweightbearing on the affected foot and uses a scooter to get around in the hospital. He has been feeding himself, dressing himself, and taking a shower on his own. Speech is fluid, lucid. He has diminished breath sounds at the lung bases but otherwise clear without any tachypnea, crackles, rhonchi. Regular rate and rhythm. And abdomen that has a very large abdominal pannus, but is soft, nontender. Not able to assess for organomegaly. He has resolving Roxana in his flexural skin folds. His legs are very large. The right leg has trace edema around the malleolar eye. He has evidence of previous venous stasis and that he has many noncontiguous hemosiderin deposits much like freckles over the anterior wyatt and calf. But there are no open ulcers or lesions. The left leg has 1+ edema from the wyatt and calf down to the foot. As already stated ulcers have healed tremendously from the time he was admitted to now. The foot is half the size it was. There is still edema, there is still serous drainage from the wounds. 3 ulcers. But no more tunneling. No more redness, heat. Greater than 30 minutes was spent coordinating discharge. This document was made in part using voice recognition software. While efforts are made to proofread this document, sound alike and grammatical errors may occur. - ALLERGIES Allergies/Adverse Reactions: Allergies Allergy/AdvReac Type Severity Reaction Status Date / Time No Known Drug Allergies Allergy Verified 08/12/22 08:50 - MEDICATIONS Home Medications: Ambulatory Orders Medication Instructions Recorded Confirmed Losartan [Cozaar] 50 mg PO BID 08/09/22 08/09/22 Omeprazole 40 mg PO DAILY 08/09/22 08/09/22 hydroCHLOROthiazide [Hydrodiuril] 25 mg PO DAILY 08/10/22 08/10/22 metFORMIN [Glucophage] 850 mg PO TIDWM 08/10/22 08/10/22 Saccharomyces Boulardii [Florastor] 250 mg PO BIDWM cap 08/19/22 Zinc Oxide 20% Oint [Zinc Oxide] 1 applic TOP PRN PRN each 08/19/22 Lancet/Gluc Test Strip/[place] 1 each QID 30 Days #120 packet 09/08/22 [Tempo Refill Kit] Ascorbic Acid [Vitamin C] 500 mg PO DAILYWM tab 09/19/22 Blood-Glucose Meter [Glucometer] 1 each QID #1 each 09/19/22 Ciprofloxacin [Cipro] 500 mg PO BID #44 tab 09/19/22 Insulin Glargine,Hum.rec.anlog 35 unit SQ DAILY #4 ea 09/19/22 [Insulin Glargine] Insulin Lispro 10 unit SUBQ TIDWM #4 ea 09/19/22 - LABS Result Diagrams: 09/19/22 14:58 09/19/22 14:58 - SEPSIS Current Stage of Sepsis: Ruled out"
[2022-09-20 13:03] VITALS: BP 120/68
== END 2022-09-20 15:53 | disposition home or self-care (01) | DRG 623 ==
LOC: ED 19:28 → MS2 21:56
PROVIDERS: ADMIT Internal Medicine; ATTEND Specialist
PROC: 0JBR0ZZ Excision of Left Foot Subcutaneous Tissue and Fascia, Open Approach (ICD-10-PCS; principal; 2022-08-13)
PROC: 0JBR0ZZ Excision of Left Foot Subcutaneous Tissue and Fascia, Open Approach (ICD-10-PCS; 2022-08-19)
PROC: 02HV33Z Insertion of Infusion Device into Superior Vena Cava, Percutaneous Approach (ICD-10-PCS; 2022-08-20)
PROC: 0JBR0ZZ Excision of Left Foot Subcutaneous Tissue and Fascia, Open Approach (ICD-10-PCS; 2022-08-26)
PROC: 0JBR0ZZ Excision of Left Foot Subcutaneous Tissue and Fascia, Open Approach (ICD-10-PCS; 2022-09-02)
PROC: 0JBR0ZZ Excision of Left Foot Subcutaneous Tissue and Fascia, Open Approach (ICD-10-PCS; 2022-09-14)
PROC: 0JBR0ZZ Excision of Left Foot Subcutaneous Tissue and Fascia, Open Approach (ICD-10-PCS; 2022-09-18)
PROC: 3E0U33Z Introduction of Anti-inflammatory into Joints, Percutaneous Approach (ICD-10-PCS; 2022-09-18)
PROC: 3E0U3BZ Introduction of Anesthetic Agent into Joints, Percutaneous Approach (ICD-10-PCS; 2022-09-18)
DX: E11.621 Type 2 diabetes mellitus with foot ulcer (principal); E87.1 Hypo-osmolality and hyponatremia; L02.612 Cutaneous abscess of left foot; L97.526 Non-pressure chronic ulcer of other part of left foot with bone involvement without evidence of necrosis; M86.9 Osteomyelitis, unspecified; R65.10 Systemic inflammatory response syndrome (SIRS) of non-infectious origin without acute organ dysfunction; L03.116 Cellulitis of left lower limb; Z68.43 Body mass index [BMI] 50.0-59.9, adult; M00.9 Pyogenic arthritis, unspecified; E11.42 Type 2 diabetes mellitus with diabetic polyneuropathy; E11.65 Type 2 diabetes mellitus with hyperglycemia; E11.69 Type 2 diabetes mellitus with other specified complication; E66.01 Morbid (severe) obesity due to excess calories; E87.6 Hypokalemia; M17.12 Unilateral primary osteoarthritis, left knee; M94.262 Chondromalacia, left knee; B37.2 Candidiasis of skin and nail; B95.1 Streptococcus, group B, as the cause of diseases classified elsewhere; B95.2 Enterococcus as the cause of diseases classified elsewhere; B96.1 Klebsiella pneumoniae [K. pneumoniae] as the cause of diseases classified elsewhere; I10 Essential (primary) hypertension; H66.91 Otitis media, unspecified, right ear; R05.9 Cough, unspecified; R13.10 Dysphagia, unspecified; Z20.822 Contact with and (suspected) exposure to COVID-19; Z56.0 Unemployment, unspecified; Z79.4 Long term (current) use of insulin; Z79.84 Long term (current) use of oral hypoglycemic drugs; Z79.899 Other long term (current) drug therapy; Z83.3 Family history of diabetes mellitus; Z83.49 Family history of other endocrine, nutritional and metabolic diseases
CPT/HCPCS: 11042; 36415; 71045; 73562; 73630; 73720; 80048; 80053; 80061; 80202; 81003; 82607; 82728; 83036; 83540; 83605; 83615; 83690; 83735; 84145; 84443; 84466; 85025; 85045; 85651; 86140; 87040; 87070; 87075; 87077; 87181; 87205; 87633; 93005; 93925; 93971; 96365; 96367; 97110; 97161; 97164; 97530; 99233; 99285; A9270; A9585; C1751; J1030; J1335; J1650; J1815; J2765; J2997; J3370; 81001; 83721; 87086

== ENCOUNTER 2022-10-09 10:33 | Outpatient (CLI) | payer SELFPAY ==
[2022-10-09 11:48] LABS: BASOPHILS % (AUTO) 0.2 %; EOSINOPHILS # (AUTO) 0.1 10^3/uL (0.0-0.7); EOSINOPHILS % (AUTO) 1.3 %; HCT - HEMATOCRIT 38.8 % (42.0-52.0); HGB - HEMOGLOBIN 12.3 g/dL (14.0-18.0); LYMPHOCYTES # (AUTO) 2.1 10^3/uL (1.5-3.5); LYMPHOCYTES % (AUTO) 20.9 %; MEAN CORPUSCULAR HEMOGLOBIN 25.9 pg (27.0-31.0); MEAN CORPUSCULAR HGB CONC 31.7 g/dL (32.0-36.0); MEAN CORPUSCULAR VOLUME 81.9 fL (80.0-94.0); MEAN PLATELET VOLUME 9.5 fL (7.4-11.4); MONOCYTES # (AUTO) 0.5 10^3/uL (0.0-1.0); MONOCYTES % (AUTO) 4.6 %; NEUTROPHILS # (AUTO) 7.3 10^3/uL (1.5-6.6); NEUTROPHILS % (AUTO) 72.7 %; PLT - PLATELET COUNT 368 10^3/uL (130-450); RED BLOOD COUNT 4.74 10^6/uL (4.70-6.10); RED CELL DISTRIBUTION WIDTH 15.2 % (12.0-15.0)
== END 2022-10-09 10:34 | disposition home or self-care (01) ==
LOC: NS 10:33
DX: Z71.3 Dietary counseling and surveillance (principal); E10.9 Type 1 diabetes mellitus without complications; E66.01 Morbid (severe) obesity due to excess calories; Z68.42 Body mass index [BMI] 45.0-49.9, adult
CPT/HCPCS: 36415; 85025; 85651; 97802

== ENCOUNTER 2023-01-27 08:00 | Outpatient (CLI) | payer SELFPAY ==
--- NOTE | 2023-01-27 11:51 | XRAY Report ---
PROCEDURE: Foot 3 View LT INDICATIONS: LEFT FOOT WOUND TECHNIQUE: 3 views of the foot were acquired. COMPARISON: MR foot 08/20/2022, x-ray foot 08/09/2022 FINDINGS: Bones: No fractures or dislocations. No suspicious bony lesions. There is an unchanged appearance of increased periosteal reaction within the third and fourth metatarsals. Focus of increased callus formation/periosteal reaction in the proximal aspect of the fifth metatarsal has become more prominen t compared to prior exam. Soft tissues: No suspicious soft tissue calcifications or masses. Skin ulceration is noted adjacen t to the fifth metatarsal. IMPRESSION: Interval prominence of periosteal reaction/callus formation at the proximal fifth metatarsal adjacent to soft tissue defect. This could be related to healing occult fracture versus osteomyelitis. Reviewed by: Domitila Benton MD on 01/27/2023 11:50 AM PDT Approved by: Domitila Benton MD on 01/27/2023 11:50 AM PDT Station ID: [id number]
== END 2023-01-27 23:59 | disposition home or self-care (01) ==
LOC: DI.WOS 08:00
PROVIDERS: ATTEND Orthopaedic Surgery
DX: M86.179 Other acute osteomyelitis, unspecified ankle and foot (principal)

== ENCOUNTER 2023-02-04 18:02 | Emergency (ER) | payer SELFPAY ==
[2023-02-04 18:23] VITALS: BP 151/71
[2023-02-04] MEDS ORDERED: PROPARACAINE 0.5% OPHTH DROPS 15 ML RIGHTEYE STA (18:58)
--- NOTE | 2023-02-04 19:13 | ED Physician Documentation ---
History of Present Illness - Stated complaint Stated Complaint: ABNORMAL LAB, R DROOPY EYE - Chief complaint Chief Complaint: General - Additonal information Additional information: 42-year-old male referred to the emergency department for evaluation of a droopy and mildly swollen right upper eyelid that is been present for about 1 week. He was being seen by his wound care provider who advised further evaluation in the ED. Patient denies pain or fevers. Has had no drainage. Denies any falls or trauma. States he feels like his eye is dry. Endorses some mildly blurry vision but no loss of vision. Extraocular movements intact without pain. Does not wear contact lenses Review of Systems Constitutional: denies: Fever Eyes: reports: Decreased vision, Other (Mild swelling and droop of the right upper eyelid). denies: Loss of vision, Photophobia, Discharge, Irritation Ears: reports: Reviewed and negative Throat: reports: Reviewed and negative PD PAST MEDICAL HISTORY - Past Medical History Past Medical History: Yes Cardiovascular: Hypertension Neuro: None Endocrine/Autoimmune: Type 2 diabetes GI: Other : None Psych: None Musculoskeletal: None - Past Surgical History Past Surgical History: No - Present Medications Home Medications: Ambulatory Orders Medication Instructions Recorded Confirmed Losartan [Cozaar] 50 mg PO BID 08/09/22 01/07/23 Omeprazole 40 mg PO DAILY 08/09/22 01/07/23 hydroCHLOROthiazide [Hydrodiuril] 25 mg PO DAILY 08/10/22 01/07/23 metFORMIN [Glucophage] 850 mg PO TIDWM 08/10/22 01/07/23 Saccharomyces Boulardii [Florastor] 250 mg PO BIDWM cap 08/19/22 01/07/23 Zinc Oxide 20% Oint [Zinc Oxide] 1 applic TOP PRN PRN each 08/19/22 01/07/23 Lancet/Gluc Test Strip/[place] 1 each QID 30 Days #120 packet 09/08/22 01/07/23 [Tempo Refill Kit] Ascorbic Acid [Vitamin C] 500 mg PO DAILYWM tab 09/19/22 01/07/23 Blood-Glucose Meter [Glucometer] 1 each QID #1 each 09/19/22 01/07/23 Insulin Glargine,Hum.rec.anlog 35 unit SQ DAILY #4 ea 09/19/22 01/07/23 [Insulin Glargine] Insulin Lispro 10 unit SUBQ TIDWM #4 ea 09/19/22 01/07/23 Doxycycline Monohydrate 100 mg PO BID 30 Days #60 cap 11/19/22 01/07/23 Amox/Clav 875/125 [Augmentin 1 tablet PO Q12H 30 Days #60 tablet 01/07/23 875/125 Tab] Doxycycline Monohydrate 100 mg PO BID 30 Days #60 cap 01/21/23 - Allergies Allergies/Adverse Reactions: Allergies Allergy/AdvReac Type Severity Reaction Status Date / Time No Known Drug Allergies Allergy Verified 02/04/23 18:17 - Social History Does the pt smoke?: No Smoking Status: Never smoker Does the pt drink ETOH?: No Does the pt have substance abuse?: No - Immunizations Immunizations are current?: Yes - POLST Patient has POLST: No PD ED PE NORMAL - General General: Alert and oriented X 3, No acute distress, Well developed/nourished - HEENT HEENT: Atraumatic, PERRL, EOMI, Ears normal, Other (Right upper eyelid is mildly swollen and there is a some droop but no drainage. Negative fluorescein stain. No pain with ocular movement. PERRLA. Clear anterior chambers. Ocular pressure is 14 in the right eye 15 in the left eye) - Neck Neck: Supple, no meningeal sign - Cardiac Cardiac: RRR Results - Vitals Vitals: Vital Signs - 24 hr 02/04/23 02/04/23 18:11 18:36 Temperature 36.9 C Heart Rate 81 Respiratory 16 20 Rate Blood Pressure 151/71 H O2 Saturation 99 Oxygen O2 Source Room air PD Medical Decision Making - ED course Complexity details: d/w patient, d/w family ED course: 42-year-old male presents emergency department for 1 week of right upper eyelid swelling resulting in eyelid droop. There is some mild erythema but no drainage. He was sent from his wound care provider who is concerned about possibility of infection behind the eye or within the orbit. On exam extraocular movements are intact without pain. The globe is soft. The pressures are normal. Fluorescein was negative. No evidence of foreign body. Anterior chambers are clear. Clinically this does not suggest a stroke. He does not have evidence of preseptal or septal cellulitis. Clinically this is not consistent with stroke or CVA. I suspect he may have a mild blepharitis. He is advised warm compress over the eye for 10 minutes 3 times a day and to follow-up with ophthalmology. The usual emergent return precautions were discussed Departure - Departure Disposition: 01 Home, Self Care Clinical Impression: Swelling of right upper eyelid Condition: Stable Comments: His right upper eyelid is mildly swollen. However the rest of his exam is unremarkable. The pressures in his eye are normal the chambers were clear. His movements are normal without pain. I this time recommend that you place warm compress Over the eye for 10 minutes 3 times a day. Is important that he follow-up with an candy cutter hand in the next week. As discussed at the bedside the isolated swelling of the right upper eyelid is not indicative of a stroke. He also has nothing that would suggest infection behind the eye or within the orbit of the eye. He should continue all his usual medications including antibiotics and diabetes management. Forms: PCP List
== END 2023-02-04 19:25 | disposition home or self-care (01) ==
LOC: ED 18:02
DX: H57.89 Other specified disorders of eye and adnexa (principal)
CPT/HCPCS: 99282; 99283; J3490

== ENCOUNTER 2023-02-11 15:42 | Outpatient (CLI) | payer SELFPAY ==
[2023-02-11 15:53] LABS: BASOPHILS % (AUTO) 0.2 %; EOSINOPHILS # (AUTO) 0.1 10^3/uL (0.0-0.7); EOSINOPHILS % (AUTO) 0.9 %; HCT - HEMATOCRIT 37.5 % (42.0-52.0); HGB - HEMOGLOBIN 12.1 g/dL (14.0-18.0); LYMPHOCYTES # (AUTO) 2.3 10^3/uL (1.5-3.5); LYMPHOCYTES % (AUTO) 26.9 %; MEAN CORPUSCULAR HEMOGLOBIN 26.6 pg (27.0-31.0); MEAN CORPUSCULAR HGB CONC 32.3 g/dL (32.0-36.0); MEAN CORPUSCULAR VOLUME 82.4 fL (80.0-94.0); MEAN PLATELET VOLUME 9.8 fL (7.4-11.4); MONOCYTES # (AUTO) 0.7 10^3/uL (0.0-1.0); MONOCYTES % (AUTO) 8.3 %; NEUTROPHILS # (AUTO) 5.4 10^3/uL (1.5-6.6); NEUTROPHILS % (AUTO) 63.4 %; PLT - PLATELET COUNT 343 10^3/uL (130-450); RED BLOOD COUNT 4.55 10^6/uL (4.70-6.10); RED CELL DISTRIBUTION WIDTH 13.9 % (12.0-15.0); WHITE BLOOD COUNT 8.6 x10^3/uL (4.8-10.8)
== END 2023-02-11 15:43 | disposition home or self-care (01) ==
LOC: LAB 15:42
PROVIDERS: ATTEND Ophthalmology
DX: E11.3392 Type 2 diabetes mellitus with moderate nonproliferative diabetic retinopathy without macular edema, left eye (principal)
CPT/HCPCS: 36415; 85025; 85651; 86140